=== PATIENT | female | born 1950 | race Caucasian/White ===

== ENCOUNTER 2023-12-25 16:03 | Outpatient (BNV) | payer MEDICARE, MEDICAID, SELFPAY | END 2023-12-27 11:08 | PROVIDERS: Admitting Provider Social Worker; PCP Nurse Practitioner Family; Visit Provider Internal Medicine | DX: R07.9 Chest pain, unspecified (principal) | CPT/HCPCS: 93010 ==

== ENCOUNTER 2023-12-25 16:03 | Inpatient (IN) | payer MEDICARE, MEDICAID, SELFPAY ==
--- NOTE | ~2023-12-25 | XR_ITS ---
EXAMINATION: XR KNEE, RIGHT CLINICAL INFORMATION: Fall COMPARISON: None available. TECHNIQUE: AP and lateral views of the right knee. FINDINGS: Mild medial and patellofemoral compartment osteoarthritis. No fracture. No joint effusion. Osteopenia. XR/XR knee RT 2V IMPRESSION: Mild degenerative changes with no fracture. Electronically signed by: Rudy Godinez MD 12/29/2023 06:55 PM EDT
--- NOTE | ~2023-12-25 | CT_ITS ---
EXAMINATION: CT HEAD WITHOUT CONTRAST CLINICAL INFORMATION: Unwitnessed fall COMPARISON: None available. TECHNIQUE: Contiguous axial imaging was performed from the skull base to vertex without intravenous administration of contrast. This CT examination was performed using dose optimization techniques as appropriate, variously including the following: *Automated exposure control *Adjustment of mA and/or kV according to patient size (this includes techniques or standardized protocols for targeted exams where dose is matched to indication/reason for exam; i.e. extremities or head) *Use of iterative reconstruction technique DLP: 632 mGy-cm RESULTS: There is no evidence of acute intracranial hemorrhage, acute large vessel infarct, midline shift or mass effect. The guy-white differentiation is preserved. There are patchy periventricular and subcortical white matter changes, which are nonspecific, but likely represent chronic microangiopathic change in a patient of this age. The ventricles and sulci are within normal limits in size and configuration. There is no evidence of hydrocephalus. There are no extraaxial collections. Osseous structures are intact. Paranasal sinuses and mastoid air cells are well aerated. CT/CT head/brain wo IV con IMPRESSION: No acute intracranial pathology. Electronically signed by: Nelda Smith MD 12/30/2023 09:02 AM EDT
--- NOTE | ~2023-12-25 | XR_ITS ---
EXAMINATION: XR CHEST CLINICAL INFORMATION: ? pneumonia COMPARISON: None available. TECHNIQUE: AP portable upright view of the chest was obtained. Nonstandard position FINDINGS: There are patchy airspace opacities throughout the right lung predominating peripherally. Similar patchy airspace opacities are noted at the periphery of the left lung base. Differential considerations include multifocal bronchopneumonia, eosinophilic pneumonia, organizing pneumonia, vasculitis or noncardiogenic edema. Clinical correlation is required as to etiology. Prominence of the central pulmonary vasculature and cardiac silhouette. Cannot exclude left effusion. There may be a component of cardiogenic edema. Recommend short-term follow-up. Nonobstructive gas pattern appear XR/XR chest 1V IMPRESSION: Bilateral peripheral predominant airspace opacities with differential considerations as above. There may be a component of cardiogenic edema. Recommend short-term follow-up. Electronically signed by: Shan London MD 01/28/2024 11:35 AM JESÚS
[2023-12-25 17:47] VITALS: BP 118/80; PULSE 58; RESP 18; TEMP 36.5; O2SAT 96
--- NOTE | 2023-12-25 18:04 | PC.ADMIT ---
Jnue Mayer was admitted to unit at 1624 from [facility] via ambulance on a 12B. Per assessment patient presented with suicidal thoughts, hallucinations, paranoia she has a diagnosis of paranoid schizophrenia. Per apartment community assistant manager of rest home reports that June symptoms have worsened over the last couple of weeks. per assessment while in the ED she had defecated and consumed her feces she told the provider that voices told her to eat her own feces. Patient appears anxious and depressed. Her affect is anxious. Patient reported anxiety, she denied endorsing depression. She denied auditory, visual hallucinations. When asked if she had thoughts of wanting to hurt self or others stated No, I just want to go home. Patient is cooperative with care. On assessment skin appeared intact and dry except for redness to bilateral breast folds and extreme dryness and calluses on both feet. Patient was placed on 5 minute checks for safety.
[2023-12-25 20:00] VITALS: BP 112/58; PULSE 64; RESP 18; TEMP 36.4; O2SAT 98
[2023-12-25] MEDS: Fludrocortisone Acetate 0.1 MG TABLET PO (20:33)
[2023-12-25] MEDS: risperiDONE 2 MG TABLET PO (20:33)
--- NOTE | 2023-12-26 08:09 | P.CONHOSP_ITS ---
History of Present Illness Data of Consult Service Date: 12/26/23 Requesting physician: Britney Nuñez Primary Care Provider: Carole Wallace NP HPI Reason for consult: medical consult Patient is a 73-year-old female with a past medical history significant for hyperlipidemia, anxiety, hypotension and paranoid schizophrenia, who was admitted to [facility] recently for SI, hallucinations and paranoia. She has no general medical concerns today. She is taking prednisone and does not know why. Review of Systems 2 Constitutional: Constitutional: Denies body ache(s), Denies fatigue, Denies fever(s), Denies headache(s) and Denies weakness Eyes: Eyes: Denies change in vision ENT: Denies dizziness, Denies headache(s), Denies nasal congestion and Denies nasal discharge Cardiovascular: Cardiovascular: Denies chest pain, Denies rapid heart rate, Denies pedal edema, Denies lightheadedness, Denies palpitations and Denies dyspnea Respiratory: Respiratory: Denies cough and Denies dyspnea Gastrointestinal: Gastrointestinal: Denies constipation, Denies diarrhea, Denies nausea and Denies vomiting Genitourinary: Genitourinary: Denies dysuria and Denies urinary urgency Musculoskeletal: Musculoskeletal: Denies abnormal gait and Denies myalgias Integumentary/Breasts: Skin/Breast: Denies rash Neurologic: Denies abnormal gait, Denies dizziness, Denies headache(s) and Denies weakness Psychiatric: Psychiatric: Denies as per HPI Endocrine: Endocrine: Denies fatigue and Denies palpitations Hematologic/Lymphatic: Hematologic/Lymphatic: Denies easy bleeding [facility] Medical History (Updated 12/26/23 @ 12:36 by Rima Ireland PA-C) HLD (hyperlipidemia) Functional capacity: independent ambulation Social History Housing: Assisted Living Facility Do you presently have visiting nurse or other home services: No Patient Tobacco Use Status: Never used Tobacco Use of substances other than those prescribed or required for medical reasons: No Currently Displaying Signs/Symptoms of Drug Intoxication Withdrawal: No Any prior treatment program specific to substance use: No Have you been hit, kicked, punched, or otherwise hurt by someone within the past year? If so, by whom?: No Do you feel safe in your current relationship?: No Current Relationship Is there a partner from a previous relationship who is making you feel unsafe now?: No Are you made to feel afraid or neglected: No Spiritual Healthcare Practices: None Reported Advance Directives: No Advance Directives Information Provided: No Do you have thoughts of harming others: None Do you have a plan to hurt others: No Plan Recently lost weight without trying: No How much weight loss: Not applicable Eating poorly because of decreased appetite: No Nutrition screen score: 0 Nutrition Risks: No Nutritional Risk Patient : No : No Poor oral hygiene: No Meds Allergies Allergy/AdvReac Type Severity Reaction Status Date / Time No Known Allergies Allergy Verified 12/25/23 17:04 Active Medications: Current Medications Acetaminophen (Acetaminophen 325 Mg Tablet) 650 mg PO Q6H PRN PRN Reason: Headache/Pain Mild Scale (1-3) Al Hydroxide/Mg Hydroxide (Magnesium Hydrox/Alum Hydrox 30 Ml Oral.Susp) 30 ml PO Q6H PRN PRN Reason: Heartburn/Nausea Atorvastatin Calcium (Atorvastatin Calcium 20 Mg Tablet) 20 mg PO DAILY [facility] Fludrocortisone Acetate (Fludrocortisone Acetate 0.1 Mg Tablet) 0.1 mg PO BID [facility] Last Admin: 12/25/23 20:33 Dose: 0.1 mg Hydroxyzine HCl (Hydroxyzine Hcl 25 Mg Tablet) 25 mg PO Q6H PRN PRN Reason: Anxiety Magnesium Hydroxide (Milk Of Magnesia 30 Ml Oral.Susp) 30 ml PO DAILY PRN PRN Reason: Constipation Nicotine Polacrilex (Nicotine Polacrilex 2 Mg Gum) 2 mg BUCCAL Q2H PRN PRN Reason: Nicotine Cravings Olanzapine (Olanzapine Odt 10 Mg Tab.Rapdis) 10 mg TRANSLINGU Q6H PRN PRN Reason: agitation Prednisone (Prednisone 5 Mg Tablet) 5 mg PO DAILY [facility] Prednisone (Prednisone 1 Mg Tablet) 1 mg PO DAILY [facility] Risperidone (Risperidone 2 Mg Tablet) 2 mg PO BID [facility] Last Admin: 12/25/23 20:33 Dose: 2 mg Senna (Sennosides 8.6 Mg Tablet) 17.2 mg PO DAILY [facility] Sertraline HCl (Sertraline Hcl 50 Mg Tablet) 50 mg PO DAILY [facility] Trazodone HCl (Trazodone Hcl 50 Mg Tablet) 50 mg PO BEDTIME MRX1 PRN PRN Reason: Insomnia Vitamin D (Cholecalciferol (Vitamin D3) 25 Mcg Tablet) 25 mcg PO DAILY [facility] Home Medications ?Medication ?Instructions ?Recorded ?Confirmed ?Last Taken ?Type atorvastatin 20 mg tablet 20 mg PO DAILY 12/25/23 12/25/23 Unknown History cholecalciferol (vitamin D3) 25 25 mcg PO DAILY 12/25/23 12/25/23 Unknown History mcg (1,000 unit) capsule (Vitamin D3) fludrocortisone 0.1 mg tablet 0.1 mg PO BID 12/25/23 12/25/23 Unknown History prednisone 1 mg tablet 1 mg PO DAILY 12/25/23 12/25/23 Unknown History prednisone 5 mg tablet 5 mg PO DAILY 12/25/23 12/25/23 Unknown History risperidone 2 mg tablet 2 mg PO BID 12/25/23 12/25/23 Unknown History sennosides 8.6 mg tablet (senna) 17.2 mg PO DAILY 12/25/23 12/25/23 Unknown History sertraline 50 mg tablet 50 mg PO DAILY 12/25/23 12/25/23 Unknown History Physical Exam 2 Vital Signs and Narrative: Vital Signs: Last Vital Signs Temp 97.6 F 12/25/23 20:00 Pulse 64 12/25/23 20:00 Resp 18 12/25/23 20:00 BP 112/58 L 12/25/23 20:00 Pulse Ox 98 12/25/23 20:00 O2 Del Method Room Air 12/25/23 20:00 General: AOx3, no acute distress Resp: CTA bilaterally CVS: S1, S2, RRR GI: +BS, NT, no distention Skin: Warm, dry Neuro: Cranial nerves II-XII grossly intact bilaterally. Motor grossly intact bilaterally Extremities: No edema Psych: Cooperative, appears anxious/paranoid Results Labs 12/26/23 07:51 Assessment and Plan (1) Medical clearance for psychiatric admission: Status: Acute Plan Patient is a 73-year-old female with a past medical history significant for hyperlipidemia, anxiety, hypotension and paranoid schizophrenia, who was admitted to [facility] recently for SI, hallucinations and paranoia. She has no general medical concerns today. Unclear reason why patient is on prednisone, we will continue for now while investigating further. Nursing is working on getting med record from rest home.. Patient medically clear for psych floor. Mood disorder - plan per psych HLD - continue atorvastatin Hypotension - BPs okay - continue fludrocortisone Thank you for allowing me to participate in the pt's care. Signing off for now. Please contact the medical team if any questions or concerns.
[2023-12-26 09:24] LABS: Alanine Aminotransferase 18 U/L (0-31); Albumin Level 4.1 g/dL (3.5-5.0); Alkaline Phosphatase 78 U/L (39-117); Anion Gap 17 (12-20); Aspartate Amino Transferase 24 U/L (5-31); Bilirubin Total 0.4 mg/dL (0.0-1.0); Blood Urea Nitrogen 23 mg/dL (9-16); Calcium 9.9 mg/dL (8.4-10.2); Carbon Dioxide 23 mmol/L (22-29); Chloride 108 mmol/L (96-108); Cholesterol 181 mg/dL (<200); Estimated Glomerular Filt Rate > 60; Glucose Fasting 88 mg/dL (60-99); HDL Cholesterol 48 mg/dL (>40); LDL Cholesterol Calculated 107 mg/dL (<100); Potassium 3.7 mmol/L (3.3-5.1); Sodium 144 mmol/L (135-145); Total Protein 7.2 g/dL (6.5-8.0); Triglycerides 133 mg/dL (<150)
[2023-12-26 09:25] LABS: Estimated Average Glucose 108 mg/dL; Hemoglobin A1C 122.4403 umol/L; Hemoglobin A1c % 5.4 % (<6.0)
[2023-12-26 09:36] VITALS: BP 144/68; PULSE 64; RESP 18; TEMP 36.3; O2SAT 100
[2023-12-26] MEDS: risperiDONE 2 MG TABLET PO ×2 (09:38→21:04)
[2023-12-26] MEDS: Cholecalciferol (Vitamin D3) 25 MCG TABLET PO (09:38)
[2023-12-26] MEDS: predniSONE 5 MG TABLET PO (09:38)
[2023-12-26] MEDS: Fludrocortisone Acetate 0.1 MG TABLET PO ×2 (09:38→21:04)
[2023-12-26] MEDS: Atorvastatin Calcium 20 MG TABLET PO (09:38)
[2023-12-26] MEDS: Sertraline HCL 50 MG TABLET PO (09:38)
[2023-12-26] MEDS: Sennosides 8.6 MG TABLET 17.2 MG PO (09:38)
[2023-12-26] MEDS: predniSONE 1 MG TABLET PO (09:38)
[2023-12-26 09:40] LABS: Thyroid Stimulating Hormone 0.81 uIU/mL (0.32-4.0)
[2023-12-26 09:47] LABS: Folate 5.2 ng/mL (> or = 4.0); Vitamin B12 516 pg/mL (200-900)
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
[2023-12-26 20:00] VITALS: BP 122/70; PULSE 62; RESP 17; TEMP 36.4; O2SAT 98
[2023-12-26] MEDS: traZODone HCL 50 MG TABLET PO (21:04)
--- NOTE | 2023-12-27 | ECG_ITS ---
Test Reason : CP Blood Pressure : / mmHG Vent. Rate : 063 BPM Atrial Rate : 063 BPM P-R Int : 130 ms QRS Dur : 090 ms QT Int : 428 ms P-R-T Axes : 071 049 024 degrees QTc Int : 437 ms Normal sinus rhythm Normal ECG No previous ECGs available Referred By: Britney Nuñez Electronically Signed By:AUGUSTIN LIMA
[2023-12-27] MEDS: Atorvastatin Calcium 20 MG TABLET PO (08:17)
[2023-12-27 08:18] VITALS: BP 192/81; PULSE 70; RESP 20; TEMP 36.1; O2SAT 100
[2023-12-27] MEDS: risperiDONE 2 MG TABLET PO ×2 (08:20→21:01)
[2023-12-27] MEDS: Fludrocortisone Acetate 0.1 MG TABLET PO ×2 (08:20→21:01)
[2023-12-27] MEDS: Sertraline HCL 50 MG TABLET PO (08:20)
[2023-12-27] MEDS: Cholecalciferol (Vitamin D3) 25 MCG TABLET PO (08:20)
[2023-12-27] MEDS: predniSONE 5 MG TABLET PO (08:20)
[2023-12-27] MEDS: predniSONE 1 MG TABLET PO (08:21)
[2023-12-27] MEDS: Sennosides 8.6 MG TABLET 17.2 MG PO (08:22)
[2023-12-27 08:39] VITALS: BP 198/86
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
[2023-12-27 09:43] VITALS: BP 130/65; PULSE 73
[2023-12-27] MEDS: amLODIPine Besylate 5 MG TABLET PO (09:44)
[2023-12-27] MEDS: hydrOXYzine HCL 25 MG TABLET PO (09:44)
[2023-12-27 12:39] VITALS: BP 132/61; PULSE 77
[2023-12-27 20:00] VITALS: BP 102/51; PULSE 89; RESP 15; TEMP 36; O2SAT 97
[2023-12-27] MEDS: clonazePAM 1 MG TABLET PO (21:00)
[2023-12-27] MEDS: Clotrimazole 1 % Cream 15 GM TUBE 1 APPL TOPICAL (21:00)
[2023-12-27] MEDS: Nystatin Powder 15 GM BOTTLE 1 APPL TOPICAL (21:01)
[2023-12-28 07:00] VITALS: BMI 22.7
[2023-12-28 08:00] VITALS: BP 135/65; PULSE 60; RESP 18; TEMP 36.3; O2SAT 99
[2023-12-28] MEDS: predniSONE 5 MG TABLET PO (08:50)
[2023-12-28] MEDS: amLODIPine Besylate 5 MG TABLET PO (08:50)
[2023-12-28] MEDS: Sertraline HCL 50 MG TABLET PO (08:50)
[2023-12-28] MEDS: Sennosides 8.6 MG TABLET 17.2 MG PO (08:50)
[2023-12-28] MEDS: Cholecalciferol (Vitamin D3) 25 MCG TABLET PO (08:50)
[2023-12-28] MEDS: predniSONE 1 MG TABLET PO (08:50)
[2023-12-28] MEDS: risperiDONE 2 MG TABLET PO ×2 (08:50→20:54)
[2023-12-28] MEDS: Fludrocortisone Acetate 0.1 MG TABLET PO ×2 (08:50→20:53)
[2023-12-28] MEDS: Atorvastatin Calcium 20 MG TABLET PO (08:51)
[2023-12-28] MEDS: Clotrimazole 1 % Cream 15 GM TUBE 1 APPL TOPICAL ×2 (09:40→20:53)
[2023-12-28] MEDS: Nystatin Powder 15 GM BOTTLE 1 APPL TOPICAL ×2 (09:44→20:53)
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
[2023-12-28 20:00] VITALS: RESP 16
[2023-12-28] MEDS: clonazePAM 1 MG TABLET PO (20:53)
[2023-12-28] MEDS: traZODone HCL 50 MG TABLET PO (20:54)
[2023-12-29] VITALS (7 sets, daily range): BP systolic 101–144; BP diastolic 50–79; PULSE 59–79; RESP 16–18; TEMP 36.2–36.4; O2SAT 95–97
[2023-12-29] MEDS: amLODIPine Besylate 5 MG TABLET PO (09:03)
[2023-12-29] MEDS: Fludrocortisone Acetate 0.1 MG TABLET PO ×2 (09:03→21:12)
[2023-12-29] MEDS: risperiDONE 2 MG TABLET PO ×2 (09:03→21:12)
[2023-12-29] MEDS: Sennosides 8.6 MG TABLET 17.2 MG PO (09:03)
[2023-12-29] MEDS: predniSONE 1 MG TABLET PO (09:03)
[2023-12-29] MEDS: Cholecalciferol (Vitamin D3) 25 MCG TABLET PO (09:03)
[2023-12-29] MEDS: Atorvastatin Calcium 20 MG TABLET PO (09:04)
[2023-12-29] MEDS: predniSONE 5 MG TABLET PO (09:04)
[2023-12-29] MEDS: Sertraline HCL 50 MG TABLET PO (09:04)
[2023-12-29] MEDS: Clotrimazole 1 % Cream 15 GM TUBE 1 APPL TOPICAL ×2 (09:06→21:12)
[2023-12-29] MEDS: Nystatin Powder 15 GM BOTTLE 1 APPL TOPICAL ×2 (09:07→21:12)
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
[2023-12-29] MEDS: Benztropine Mesylate 0.5 MG TABLET PO ×2 (15:45→21:12)
--- NOTE | 2023-12-29 18:21 | P.EN_ITS ---
Event Note Date of Service: 12/29/23 Event Note: Rapid response called for 73-year-old female admitted to [facility] for unwitnessed fall out of bed. Patient is alert and oriented x4. Reports she was reaching to turn off the light when she fell out of bed and was found by staff on the floor. Nurse was notified and by the time she arrived to the room patient was already back in bed. Patient states she hit her right knee on the floor but denies head strike. No lightheadedness or dizziness. Patient current ly has no medical complaints. Denies right knee pain. Physical exam benign, revealing preserved ROM of knees but and hips bilaterally. Knees and hips bilaterally nontender to palpation. Will check orthostatics. Will get right knee x-ray, and check CT of head and brain. Time Spent With Patient Time: Total time managing care of this patient today ____ minutes.
--- NOTE | 2023-12-29 18:58 | PC.NURSE ---
June was found on the floor at 1805, GAS JOCKEY was called upon approach she was attempting to get off the floor stated Leave me alone, I'm ok. She got up on her own, VS obtained, she denied pain stated I just hit my knee, when asked if she hit her head she stated No. She reported she was trying grab a paper from her night stand I just lost my footing. She was assessed by medicine, CT of the head and knee xray ordered and done, Orthostatic BP obtained. June was alert and oriented X4, ambulates independently, she denied feeling unsteady. Dr. Watkins notified.
[2023-12-29] MEDS: clonazePAM 1 MG TABLET PO (21:12)
[2023-12-30 07:55] VITALS: BP 153/67; PULSE 63; RESP 18; TEMP 36.6; O2SAT 100
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
[2023-12-30] MEDS: amLODIPine Besylate 5 MG TABLET PO (08:42)
[2023-12-30] MEDS: Sennosides 8.6 MG TABLET 17.2 MG PO (08:42)
[2023-12-30] MEDS: Atorvastatin Calcium 20 MG TABLET PO (08:42)
[2023-12-30] MEDS: predniSONE 1 MG TABLET PO (08:42)
[2023-12-30] MEDS: risperiDONE 2 MG TABLET PO ×2 (08:43→21:03)
[2023-12-30] MEDS: predniSONE 5 MG TABLET PO (08:43)
[2023-12-30] MEDS: Fludrocortisone Acetate 0.1 MG TABLET PO ×2 (08:43→21:02)
[2023-12-30] MEDS: Clotrimazole 1 % Cream 15 GM TUBE 1 APPL TOPICAL ×2 (08:43→21:02)
[2023-12-30] MEDS: Benztropine Mesylate 0.5 MG TABLET PO ×2 (08:43→21:01)
[2023-12-30] MEDS: Sertraline HCL 50 MG TABLET PO (08:43)
[2023-12-30] MEDS: Cholecalciferol (Vitamin D3) 25 MCG TABLET PO (08:43)
[2023-12-30] MEDS: Nystatin Powder 15 GM BOTTLE 1 APPL TOPICAL ×2 (08:43→21:02)
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
[2023-12-30 20:00] VITALS: BP 96/51; PULSE 67; RESP 17; TEMP 36.1; O2SAT 96
[2023-12-30] MEDS: clonazePAM 1 MG TABLET PO (21:01)
[2023-12-31 06:55] VITALS: BP 132/83; PULSE 76; RESP 18; TEMP 36.9; O2SAT 99
[2023-12-31] MEDS: Benztropine Mesylate 0.5 MG TABLET PO ×2 (08:39→21:04)
[2023-12-31] MEDS: predniSONE 5 MG TABLET PO (08:39)
[2023-12-31] MEDS: Sertraline HCL 50 MG TABLET PO (08:39)
[2023-12-31] MEDS: Cholecalciferol (Vitamin D3) 25 MCG TABLET PO (08:39)
[2023-12-31] MEDS: risperiDONE 2 MG TABLET PO ×2 (08:39→22:26)
[2023-12-31] MEDS: Sennosides 8.6 MG TABLET 17.2 MG PO (08:39)
[2023-12-31] MEDS: Nystatin Powder 15 GM BOTTLE 1 APPL TOPICAL (08:40)
[2023-12-31] MEDS: predniSONE 1 MG TABLET PO (08:40)
[2023-12-31] MEDS: amLODIPine Besylate 5 MG TABLET PO (08:40)
[2023-12-31] MEDS: Fludrocortisone Acetate 0.1 MG TABLET PO ×2 (08:40→21:05)
[2023-12-31] MEDS: Clotrimazole 1 % Cream 15 GM TUBE 1 APPL TOPICAL (08:40)
[2023-12-31] MEDS: Atorvastatin Calcium 20 MG TABLET PO (08:40)
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
[2023-12-31 20:00] VITALS: BP 129/59; PULSE 60; RESP 16; TEMP 36.6; O2SAT 98
[2023-12-31] MEDS: clonazePAM 1 MG TABLET PO (21:05)
[2024-01-01 08:45] VITALS: BP 103/57; PULSE 61; RESP 18; TEMP 36.3; O2SAT 98
[2024-01-01] MEDS: predniSONE 5 MG TABLET PO (09:41)
[2024-01-01] MEDS: Sennosides 8.6 MG TABLET 17.2 MG PO (09:41)
[2024-01-01] MEDS: Atorvastatin Calcium 20 MG TABLET PO (09:42)
[2024-01-01] MEDS: predniSONE 1 MG TABLET PO (09:42)
[2024-01-01] MEDS: risperiDONE 2 MG TABLET PO ×2 (09:42→20:39)
[2024-01-01] MEDS: Fludrocortisone Acetate 0.1 MG TABLET PO ×2 (09:42→20:39)
[2024-01-01] MEDS: Benztropine Mesylate 0.5 MG TABLET PO ×2 (09:43→20:39)
[2024-01-01] MEDS: Sertraline HCL 50 MG TABLET PO (09:43)
[2024-01-01] MEDS: Cholecalciferol (Vitamin D3) 25 MCG TABLET PO (09:43)
[2024-01-01] MEDS: buPROPion HCl XL 150 MG TAB.ER.24H PO (09:43)
[2024-01-01] MEDS: amLODIPine Besylate 5 MG TABLET PO (09:44)
[2024-01-01] MEDS: Nystatin Powder 15 GM BOTTLE 1 APPL TOPICAL (09:46)
[2024-01-01] MEDS: Clotrimazole 1 % Cream 15 GM TUBE 1 APPL TOPICAL (09:46)
[2024-01-01 12:54] LABS: Neut%MD 66.9 %; Neutrophils Absolute Auto 5.5 x10*3/uL (2.0-8.3); WBCANC 8.2 X10*3/uL
[2024-01-01 20:00] VITALS: BP 118/63; PULSE 65; RESP 16; TEMP 36.5; O2SAT 97
[2024-01-01] MEDS: clonazePAM 1 MG TABLET PO (20:39)
[2024-01-02 10:11] VITALS: BP 119/56; PULSE 56; RESP 18; TEMP 36.5; O2SAT 97
[2024-01-02] MEDS: Sennosides 8.6 MG TABLET 17.2 MG PO (10:12)
[2024-01-02] MEDS: buPROPion HCl XL 150 MG TAB.ER.24H PO (10:13)
[2024-01-02] MEDS: Fludrocortisone Acetate 0.1 MG TABLET PO ×2 (10:13→21:05)
[2024-01-02] MEDS: predniSONE 5 MG TABLET PO (10:13)
[2024-01-02] MEDS: Benztropine Mesylate 0.5 MG TABLET PO ×2 (10:13→21:05)
[2024-01-02] MEDS: Cholecalciferol (Vitamin D3) 25 MCG TABLET PO (10:14)
[2024-01-02] MEDS: Atorvastatin Calcium 20 MG TABLET PO (10:14)
[2024-01-02] MEDS: amLODIPine Besylate 5 MG TABLET PO (10:14)
[2024-01-02] MEDS: Sertraline HCL 50 MG TABLET PO (10:14)
[2024-01-02] MEDS: risperiDONE 2 MG TABLET PO ×2 (10:15→21:05)
[2024-01-02] MEDS: Nystatin Powder 15 GM BOTTLE 1 APPL TOPICAL ×2 (10:15→21:05)
[2024-01-02] MEDS: Clotrimazole 1 % Cream 15 GM TUBE 1 APPL TOPICAL ×2 (10:15→21:06)
[2024-01-02] MEDS: predniSONE 1 MG TABLET PO (10:15)
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
[2024-01-02 20:00] VITALS: BP 91/52; PULSE 54; RESP 16; TEMP 36.1; O2SAT 96
[2024-01-02] MEDS: clonazePAM 1 MG TABLET PO (21:05)
[2024-01-03 08:05] VITALS: BP 116/57; PULSE 61; RESP 18; TEMP 36.9; O2SAT 95
[2024-01-03] MEDS: Atorvastatin Calcium 20 MG TABLET PO (08:27)
[2024-01-03] MEDS: Sennosides 8.6 MG TABLET 17.2 MG PO (08:28)
[2024-01-03] MEDS: predniSONE 1 MG TABLET PO (08:28)
[2024-01-03] MEDS: buPROPion HCl XL 150 MG TAB.ER.24H PO (08:28)
[2024-01-03] MEDS: Cholecalciferol (Vitamin D3) 25 MCG TABLET PO (08:28)
[2024-01-03] MEDS: Benztropine Mesylate 0.5 MG TABLET PO ×2 (08:28→21:04)
[2024-01-03] MEDS: predniSONE 5 MG TABLET PO (08:28)
[2024-01-03] MEDS: Sertraline HCL 50 MG TABLET PO (08:28)
[2024-01-03] MEDS: Fludrocortisone Acetate 0.1 MG TABLET PO ×2 (08:28→21:04)
[2024-01-03] MEDS: amLODIPine Besylate 5 MG TABLET PO (08:28)
[2024-01-03] MEDS: risperiDONE 2 MG TABLET PO ×2 (08:28→21:06)
[2024-01-03 20:00] VITALS: BP 104/47; PULSE 62; RESP 17; TEMP 36.4; O2SAT 95
[2024-01-03] MEDS: Clotrimazole 1 % Cream 15 GM TUBE 1 APPL TOPICAL (21:04)
[2024-01-03] MEDS: clonazePAM 1 MG TABLET PO (21:04)
[2024-01-03] MEDS: Nystatin Powder 15 GM BOTTLE 1 APPL TOPICAL (21:05)
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
[2024-01-04] MEDS: predniSONE 1 MG TABLET PO (08:47)
[2024-01-04] MEDS: Sertraline HCL 50 MG TABLET PO (08:47)
[2024-01-04] MEDS: predniSONE 5 MG TABLET PO (08:47)
[2024-01-04] MEDS: buPROPion HCl XL 150 MG TAB.ER.24H PO (08:47)
[2024-01-04 08:48] VITALS: BP 97/55; PULSE 90; RESP 18; TEMP 36.8; O2SAT 95
[2024-01-04] MEDS: Fludrocortisone Acetate 0.1 MG TABLET PO ×2 (08:49→20:53)
[2024-01-04] MEDS: risperiDONE 2 MG TABLET PO ×2 (08:49→20:54)
[2024-01-04] MEDS: Benztropine Mesylate 0.5 MG TABLET PO ×2 (08:49→20:54)
[2024-01-04] MEDS: Cholecalciferol (Vitamin D3) 25 MCG TABLET PO (08:49)
[2024-01-04] MEDS: Sennosides 8.6 MG TABLET 17.2 MG PO (08:50)
[2024-01-04] MEDS: Atorvastatin Calcium 20 MG TABLET PO (08:50)
[2024-01-04] MEDS: Clotrimazole 1 % Cream 15 GM TUBE 1 APPL TOPICAL (08:52)
[2024-01-04] MEDS: Nystatin Powder 15 GM BOTTLE 1 APPL TOPICAL (08:52)
--- NOTE | 2024-01-04 09:43 | PM.EVENT ---
Event Note Date of Service: 01/04/24 Event Note: consult for bilateral foot fungus. pt has been using clotrimazone cream BID x1 week. PE: severe fungal toenails with fungal plaques superior to the nails. mild skin flaking on bottom on feet. plan: continue clotrimazole cream BID for up to 4 weeks. will need outpt f/u for fungal nails. Thank you for allowing me to participate in the pt's care. Signing off for now. Please contact the medical team if any questions or concerns. Time Spent With Patient Time: Total time managing care of this patient today 10 minutes.
[2024-01-04 13:39] VITALS: BMI 23.9
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
[2024-01-04 20:00] VITALS: BP 148/65; PULSE 76; RESP 16; TEMP 36.8; O2SAT 98
[2024-01-04] MEDS: clonazePAM 1 MG TABLET PO (20:54)
[2024-01-04] MEDS: OLANZapine ODT 10 MG TAB.RAPDIS TRANSLINGU (23:48)
[2024-01-05] MEDS: traZODone HCL 50 MG TABLET PO (01:26)
[2024-01-05 08:00] VITALS: BP 111/53; PULSE 62; RESP 16; TEMP 36.8; O2SAT 96
[2024-01-05] MEDS: Benztropine Mesylate 0.5 MG TABLET PO ×2 (11:26→21:14)
[2024-01-05] MEDS: amLODIPine Besylate 5 MG TABLET PO (11:26)
[2024-01-05] MEDS: predniSONE 1 MG TABLET PO (11:27)
[2024-01-05] MEDS: Sertraline HCL 50 MG TABLET PO (11:27)
[2024-01-05] MEDS: predniSONE 5 MG TABLET PO (11:27)
[2024-01-05] MEDS: Fludrocortisone Acetate 0.1 MG TABLET PO ×2 (11:27→21:14)
[2024-01-05] MEDS: Atorvastatin Calcium 20 MG TABLET PO (11:27)
[2024-01-05] MEDS: Sennosides 8.6 MG TABLET 17.2 MG PO (11:27)
[2024-01-05] MEDS: Cholecalciferol (Vitamin D3) 25 MCG TABLET PO (11:27)
[2024-01-05] MEDS: buPROPion HCl XL 150 MG TAB.ER.24H PO (11:27)
[2024-01-05] MEDS: risperiDONE 2 MG TABLET PO ×2 (11:28→21:14)
[2024-01-05] MEDS: Clotrimazole 1 % Cream 15 GM TUBE 1 APPL TOPICAL ×2 (12:22→21:16)
[2024-01-05] MEDS: Nystatin Powder 15 GM BOTTLE 1 APPL TOPICAL ×2 (12:26→21:16)
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
[2024-01-05 20:00] VITALS: BP 96/55; PULSE 67; RESP 16; TEMP 37.1; O2SAT 95
[2024-01-05] MEDS: clonazePAM 1 MG TABLET PO (21:14)
[2024-01-06 06:52] VITALS: BP 115/55; PULSE 66; RESP 16; O2SAT 95
[2024-01-06 08:00] VITALS: BP 117/55; PULSE 65; RESP 16; TEMP 37.6; O2SAT 98
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
[2024-01-06] MEDS: predniSONE 1 MG TABLET PO (09:03)
[2024-01-06] MEDS: amLODIPine Besylate 5 MG TABLET PO (09:03)
[2024-01-06] MEDS: Atorvastatin Calcium 20 MG TABLET PO (09:03)
[2024-01-06] MEDS: Benztropine Mesylate 0.5 MG TABLET PO ×2 (09:03→21:03)
[2024-01-06] MEDS: Fludrocortisone Acetate 0.1 MG TABLET PO ×2 (09:03→21:03)
[2024-01-06] MEDS: predniSONE 5 MG TABLET PO (09:03)
[2024-01-06] MEDS: buPROPion HCl XL 150 MG TAB.ER.24H PO (09:03)
[2024-01-06] MEDS: risperiDONE 2 MG TABLET PO ×2 (09:03→21:03)
[2024-01-06] MEDS: Sertraline HCL 50 MG TABLET PO (09:03)
[2024-01-06] MEDS: Cholecalciferol (Vitamin D3) 25 MCG TABLET PO (09:03)
[2024-01-06] MEDS: Sennosides 8.6 MG TABLET 17.2 MG PO (09:04)
[2024-01-06] MEDS: Clotrimazole 1 % Cream 15 GM TUBE 1 APPL TOPICAL ×2 (09:37→21:03)
[2024-01-06] MEDS: Nystatin Powder 15 GM BOTTLE 1 APPL TOPICAL ×2 (09:37→21:03)
[2024-01-06 20:00] VITALS: BP 101/50; PULSE 62; RESP 16; TEMP 36.8; O2SAT 97
[2024-01-06] MEDS: clonazePAM 1 MG TABLET PO (21:03)
[2024-01-06 23:35] VITALS: BP 113/54; PULSE 69; TEMP 36.1; O2SAT 98
[2024-01-07 00:44] VITALS: BP 113/54; PULSE 69; TEMP 36.1; O2SAT 98
--- NOTE | 2024-01-07 01:32 | MHC.EVENTN ---
At 2335, pt's room mate alerted a staff member that pt is on the floor. Upon arrival into room, pt was found lying in front of the bathroom. vitals taken were wnl. pt reported I got up to go to the bathroom, felt dizzy getting back to bed and lowered myself down to the floor . No injury sustained. pt denied pain. radiology receptionist provider and hospitality house supervisor notified. Falls protocol implemented.
[2024-01-07 08:36] VITALS: BP 97/48; PULSE 62; RESP 18; TEMP 36.4; O2SAT 96
[2024-01-07] MEDS: Sennosides 8.6 MG TABLET 17.2 MG PO (08:39)
[2024-01-07] MEDS: Fludrocortisone Acetate 0.1 MG TABLET PO ×2 (08:40→21:25)
[2024-01-07] MEDS: Sertraline HCL 50 MG TABLET PO (08:40)
[2024-01-07] MEDS: buPROPion HCl XL 150 MG TAB.ER.24H PO (08:40)
[2024-01-07] MEDS: predniSONE 5 MG TABLET PO (08:40)
[2024-01-07] MEDS: Cholecalciferol (Vitamin D3) 25 MCG TABLET PO (08:40)
[2024-01-07] MEDS: risperiDONE 2 MG TABLET PO ×2 (08:41→21:24)
[2024-01-07] MEDS: Atorvastatin Calcium 20 MG TABLET PO (08:41)
[2024-01-07] MEDS: Benztropine Mesylate 0.5 MG TABLET PO ×2 (08:41→21:25)
[2024-01-07] MEDS: predniSONE 1 MG TABLET PO (08:41)
[2024-01-07 08:42] VITALS: BP 125/52
[2024-01-07] MEDS: amLODIPine Besylate 5 MG TABLET PO (08:42)
[2024-01-07] MEDS: Clotrimazole 1 % Cream 15 GM TUBE 1 APPL TOPICAL (08:44)
[2024-01-07] MEDS: Nystatin Powder 15 GM BOTTLE 1 APPL TOPICAL (08:44)
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
[2024-01-07 20:00] VITALS: BP 130/58; PULSE 66; RESP 16; TEMP 37; O2SAT 98
[2024-01-07] MEDS: clonazePAM 1 MG TABLET PO (21:25)
[2024-01-07] MEDS: traZODone HCL 50 MG TABLET PO (21:25)
[2024-01-08] MEDS: Acetaminophen 325 MG TABLET 650 MG PO (01:12)
[2024-01-08] MEDS: traZODone HCL 50 MG TABLET PO (01:12)
[2024-01-08] MEDS: OLANZapine ODT 10 MG TAB.RAPDIS TRANSLINGU (01:13)
[2024-01-08 08:00] VITALS: BP 124/56; PULSE 60; RESP 16; TEMP 36.1; O2SAT 98
[2024-01-08] MEDS: predniSONE 5 MG TABLET PO (09:01)
[2024-01-08] MEDS: amLODIPine Besylate 5 MG TABLET PO (09:01)
[2024-01-08] MEDS: Sertraline HCL 50 MG TABLET PO (09:01)
[2024-01-08] MEDS: Fludrocortisone Acetate 0.1 MG TABLET PO ×2 (09:01→21:38)
[2024-01-08] MEDS: risperiDONE 2 MG TABLET PO ×2 (09:01→21:38)
[2024-01-08] MEDS: predniSONE 1 MG TABLET PO (09:01)
[2024-01-08] MEDS: Cholecalciferol (Vitamin D3) 25 MCG TABLET PO (09:01)
[2024-01-08] MEDS: Benztropine Mesylate 0.5 MG TABLET PO ×2 (09:01→21:37)
[2024-01-08] MEDS: Atorvastatin Calcium 20 MG TABLET PO (09:01)
[2024-01-08] MEDS: buPROPion HCl XL 150 MG TAB.ER.24H PO (09:02)
[2024-01-08] MEDS: Sennosides 8.6 MG TABLET 17.2 MG PO (09:02)
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
[2024-01-08] MEDS: LORazepam 1 MG TABLET PO ×2 (17:25→21:37)
[2024-01-08 17:33] LABS: MANUAL DIFF FLAG NO
[2024-01-08 17:35] LABS: Basophils Percent Auto 0.4 % (0-2); Eosinophils Absolute Auto 0.1 X10*3/uL (0.0-0.4); Eosinophils Percent Auto 1.4 % (0-4); Hematocrit 31.8 % (37.0-47.0); Hemoglobin 10.5 g/dl (12.0-16.0); Imm Gran Abs Auto 0.02 X10*3/uL (0.00-0.03); Imm Gran Pct Auto 0.3 % (0.0-0.4); Lymphocytes Absolute Auto 1.5 X10*3/uL (1.2-4.9); Lymphocytes Percent Auto 21.2 % (20-40); Mean Corpuscular Hemoglobin 30.7 pg (27.0-33.0); Mean Platelet Volume 9.2 fL (9.4-12.3); Monocytes Absolute Auto 0.4 X10*3/uL (0.1-1.2); Monocytes Percent Auto 5.4 % (2-11); Neutrophils Percent Auto 71.3 % (45-73); Platelet Count 292 X10*3/uL (160-400); Red Blood Count 3.42 X10*6/uL (4.20-5.50); Red Cell Distribution Width 13.4 % (11.0-16.0)
[2024-01-08 17:43] LABS: Ammonia 34 umol/L (13-55)
[2024-01-08 17:51] LABS: Alanine Aminotransferase 20 U/L (0-31); Albumin Level 3.6 g/dL (3.5-5.0); Alkaline Phosphatase 62 U/L (39-117); Anion Gap 14 (12-20); Aspartate Amino Transferase 41 U/L (5-31); Bilirubin Total 0.2 mg/dL (0.0-1.0); Blood Urea Nitrogen 20 mg/dL (9-16); Calcium 9.4 mg/dL (8.4-10.2); Carbon Dioxide 25 mmol/L (22-29); Chloride 107 mmol/L (96-108); Creatinine Clr Calc Pharmacy 58.7; Estimated Glomerular Filt Rate > 60; Glucose Random 130 mg/dL (60-115); Potassium 4.1 mmol/L (3.3-5.1); Sodium 142 mmol/L (135-145); Total Protein 6.4 g/dL (6.5-8.0)
[2024-01-08 20:00] VITALS: BP 115/58; PULSE 71; RESP 16; TEMP 36.4; O2SAT 95
[2024-01-08] MEDS: Nystatin Powder 15 GM BOTTLE 1 APPL TOPICAL (21:38)
[2024-01-08] MEDS: Clotrimazole 1 % Cream 15 GM TUBE 1 APPL TOPICAL (21:38)
[2024-01-08] MEDS: clonazePAM 1 MG TABLET PO (21:38)
[2024-01-09 08:00] VITALS: BP 129/66; PULSE 74; RESP 16; TEMP 36.8; O2SAT 96
[2024-01-09] MEDS: predniSONE 1 MG TABLET PO (09:33)
[2024-01-09] MEDS: Benztropine Mesylate 0.5 MG TABLET PO ×2 (09:33→21:12)
[2024-01-09] MEDS: Fludrocortisone Acetate 0.1 MG TABLET PO ×2 (09:33→21:12)
[2024-01-09] MEDS: Sertraline HCL 50 MG TABLET PO (09:33)
[2024-01-09] MEDS: Atorvastatin Calcium 20 MG TABLET PO (09:33)
[2024-01-09] MEDS: Sennosides 8.6 MG TABLET 17.2 MG PO (09:33)
[2024-01-09] MEDS: amLODIPine Besylate 5 MG TABLET PO (09:33)
[2024-01-09] MEDS: LORazepam 1 MG TABLET PO ×3 (09:33→21:12)
[2024-01-09] MEDS: risperiDONE 2 MG TABLET PO ×2 (09:34→21:12)
[2024-01-09] MEDS: predniSONE 5 MG TABLET PO (09:34)
[2024-01-09] MEDS: Cholecalciferol (Vitamin D3) 25 MCG TABLET PO (09:34)
--- NOTE | 2024-01-09 16:08 | HO.WOUND ---
Addendum entered by Nallely Naqvi RN 01/09/24 16:14: Wound Consult: Initial 73yr old?female admitted to the Geriatric Behavioral Health Unit at [facility] on 12/25/23 - See progress notes and H&P for detailed history.? Wound consult placed for f dry thickened tissue to bilateral toes.? Patient agreeable to assessment. Bilateral socks removed - no pressure injuries noted. The toe nails are thickened and consistent with fungal invasion to the nails however there is no evidence to suggest fungal dermatitis exists on the skin itself. There is no moisture, no yeast odor, no satellite lesion and no pink pigmentation noted. There is thickened scaling epidermal layers noted to the dorsal side of the toes. When removed they reveal intact tissue. I would suggest application of ammonium lactate cream in an attempt to soften the tissue for easy removal when washed. The legt reat toe is noted for a dry resolving blood blister. Cause unclear but appears to be dry and well adhere to tissue. May apply skin prep to the great toe to keep dry and protect from friction while healing continues. Recommendations: 1. Bilateral toes - Routine Cleansing, dry well. Apply Ammonium Lactate cream per provider order, twice daily. 2. Left Great Toe - Apply Skin Prep to the blister site allow to dry. Re-consult wound care Nurse for wound deterioration or wound changes. Original Note: Wound Consult: Initial 73yr old?female admitted to the [facility] Behavioral Health Unit at [facility] on 12/25/23 - See progress notes and H&P for detailed history.? Wound consult placed for f dry thickened tissue to bilateral toes.? Patient agreeable to assessment. Bilateral socks removed - no pressure injuries noted. The toe nails are thickened and consistent with fungal invasion to the nails however there is no evidence to suggest fungal dermatitis exists on the skin itself. There is no moisture, no yeast odor, no satellite lesion and no pink pigmentation noted. There is thickened scaling epidermal layers noted to the dorsal side of the toes. When removed they reveal intact tissue. I would suggest application of ammonium lactate cream in an attempt to soften the tissue for easy removal when washed. Recommendations: 1. Bilateral toes - Routine Cleansing, dry well. Apply Ammonium Lactate cream per provider order, twice daily. Re-consult wound care Nurse for wound deterioration or wound changes.
[2024-01-09 20:00] VITALS: BP 119/56; PULSE 62; RESP 16; TEMP 36.2; O2SAT 97
[2024-01-09] MEDS: Clotrimazole 1 % Cream 15 GM TUBE 1 APPL TOPICAL (21:12)
[2024-01-09] MEDS: clonazePAM 1 MG TABLET PO (21:12)
[2024-01-09] MEDS: Nystatin Powder 15 GM BOTTLE 1 APPL TOPICAL (22:22)
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
[2024-01-10 07:55] VITALS: BP 120/56; PULSE 94; RESP 18; TEMP 36.7; O2SAT 94
[2024-01-10] MEDS: risperiDONE 3 MG TABLET PO ×2 (08:16→20:50)
[2024-01-10] MEDS: predniSONE 1 MG TABLET PO (08:16)
[2024-01-10] MEDS: clonazePAM 0.5 MG TABLET PO ×2 (08:16→20:49)
[2024-01-10] MEDS: Fludrocortisone Acetate 0.1 MG TABLET PO ×2 (08:16→20:50)
[2024-01-10] MEDS: amLODIPine Besylate 5 MG TABLET PO (08:16)
[2024-01-10] MEDS: Atorvastatin Calcium 20 MG TABLET PO (08:16)
[2024-01-10] MEDS: Sennosides 8.6 MG TABLET 17.2 MG PO (08:16)
[2024-01-10] MEDS: LORazepam 1 MG TABLET PO ×3 (08:17→20:50)
[2024-01-10] MEDS: Benztropine Mesylate 0.5 MG TABLET PO ×2 (08:17→20:47)
[2024-01-10] MEDS: Sertraline HCL 50 MG TABLET PO (08:17)
[2024-01-10] MEDS: Cholecalciferol (Vitamin D3) 25 MCG TABLET PO (08:17)
[2024-01-10] MEDS: predniSONE 5 MG TABLET PO (08:17)
[2024-01-10] MEDS: Nystatin Powder 15 GM BOTTLE 1 APPL TOPICAL ×2 (08:48→20:50)
[2024-01-10 15:42] VITALS: BP 113/58; PULSE 59
[2024-01-10 15:51] LABS: Glucose, Whole Blood 100 mg/dL (60-115)
[2024-01-10 16:17] VITALS: BP 110/62; PULSE 66
[2024-01-10 16:18] VITALS: BP 108/51; PULSE 74
--- NOTE | 2024-01-10 18:09 | PC.NURSE ---
June was found on the floor at 1530 ACCOUNT EXECUTIVE TRAINEE was called upon approach she was attempting to get off the bathroom floor , VSS she denied pain when asked if she hit her head she stated No. She stated she was having a hard time using the walker, She was assessed by medicine, Orthostatic BP obtained. June was alert and oriented X4, ambulates independently, she denied feeling unsteady. Dr Darling notified.
[2024-01-10 20:00] VITALS: RESP 17
[2024-01-10] MEDS: Clotrimazole 1 % Cream 15 GM TUBE 1 APPL TOPICAL (20:49)
[2024-01-10] MEDS: clonazePAM 1 MG TABLET PO (20:49)
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
[2024-01-11] MEDS: Clotrimazole 1 % Cream 15 GM TUBE 1 APPL TOPICAL ×2 (08:45→20:57)
[2024-01-11 08:57] VITALS: BP 117/69; PULSE 80; RESP 18; TEMP 36.7; O2SAT 96
[2024-01-11] MEDS: Cholecalciferol (Vitamin D3) 25 MCG TABLET PO (08:59)
[2024-01-11] MEDS: Nystatin Powder 15 GM BOTTLE 1 APPL TOPICAL ×2 (08:59→20:57)
[2024-01-11] MEDS: predniSONE 5 MG TABLET PO (09:00)
[2024-01-11] MEDS: Sertraline HCL 50 MG TABLET PO (09:00)
[2024-01-11] MEDS: Sennosides 8.6 MG TABLET 17.2 MG PO (09:00)
[2024-01-11] MEDS: Fludrocortisone Acetate 0.1 MG TABLET PO ×2 (09:00→20:56)
[2024-01-11] MEDS: clonazePAM 0.5 MG TABLET PO ×2 (09:01→20:57)
[2024-01-11] MEDS: Benztropine Mesylate 0.5 MG TABLET PO ×2 (09:01→20:57)
[2024-01-11] MEDS: LORazepam 1 MG TABLET PO ×3 (09:01→20:57)
[2024-01-11] MEDS: Atorvastatin Calcium 20 MG TABLET PO (09:02)
[2024-01-11] MEDS: risperiDONE 3 MG TABLET PO (09:02)
[2024-01-11] MEDS: predniSONE 1 MG TABLET PO (09:02)
[2024-01-11] MEDS: amLODIPine Besylate 5 MG TABLET PO (09:02)
--- NOTE | 2024-01-11 14:16 | PC.NURSE ---
Patient voided 400 ml clear dark yellow urine at 1410. Clean catch urine specimen collected and sent to the lab. The patient behavioral, said that she could not ambulate. It took max assist of 2 to ambulate her back to bed. Patient legs were bending and she had to be constantly reminded to stand up straight. Patient back in bed with bed alarm on.
[2024-01-11 14:23] LABS: Appearance Urine Cloudy; Color Urine Yellow; Glucose Urine UA Negative (Negative); Leukocyte Esterase Urine Moderate (2+) (Negative); Nitrite Urine Negative (Negative); PH 5.5 (5.0-9.0); UMIC TRIGGER UACC YES; Urine Blood Negative (Negative); Urine Ketones Negative (Negative); Urine Protein Negative (Neg-Trace)
[2024-01-11 14:30] LABS: Bacteria Urine None Seen (None Seen); Hyaline Casts Urine 0-2 /LPF (0-2); UACC Culture Trigger YES; WBC Urine 21-50 /HPF (0-5)
[2024-01-11 14:32] VITALS: BMI 22.2
--- NOTE | 2024-01-11 17:04 | P.EN_ITS ---
Event Note Date of Service: 01/11/24 Event Note: Patient is a 73-year-old female admitted to [facility] with hospitalist consult for UTI abx recommendations. Patient's UA consistent with acute UTI. Will empirically treat with cefuroxime 500 mg b.i.d. x10 days. Follow UA culture results and adjust abx accordingly. Time Spent With Patient Time: Total time managing care of this patient today ____ minutes.
[2024-01-11 20:00] VITALS: BP 117/58; PULSE 60; RESP 16; TEMP 36.9; O2SAT 96
[2024-01-11] MEDS: clonazePAM 1 MG TABLET PO (20:56)
[2024-01-11] MEDS: risperiDONE 2 MG TABLET PO (20:56)
[2024-01-11] MEDS: cefuroxime axetiL 500 MG TABLET PO (20:57)
[2024-01-11] MEDS: cloZAPine 25 MG TABLET PO (20:57)
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
[2024-01-12] MEDS: cefuroxime axetiL 500 MG TABLET PO ×2 (06:04→20:25)
[2024-01-12] MEDS: predniSONE 1 MG TABLET PO (08:55)
[2024-01-12] MEDS: Sertraline HCL 50 MG TABLET PO (08:55)
[2024-01-12] MEDS: LORazepam 1 MG TABLET PO ×3 (08:55→20:25)
[2024-01-12] MEDS: clonazePAM 0.5 MG TABLET PO ×2 (08:55→20:25)
[2024-01-12] MEDS: Atorvastatin Calcium 20 MG TABLET PO (08:55)
[2024-01-12] MEDS: Sennosides 8.6 MG TABLET 17.2 MG PO (08:56)
[2024-01-12] MEDS: Benztropine Mesylate 0.5 MG TABLET PO ×2 (08:56→20:25)
[2024-01-12] MEDS: Fludrocortisone Acetate 0.1 MG TABLET PO ×2 (08:56→20:36)
[2024-01-12] MEDS: predniSONE 5 MG TABLET PO (08:56)
[2024-01-12 08:57] VITALS: BP 132/60
[2024-01-12] MEDS: Cholecalciferol (Vitamin D3) 25 MCG TABLET PO (08:57)
[2024-01-12] MEDS: risperiDONE 2 MG TABLET PO ×2 (08:57→20:25)
[2024-01-12] MEDS: amLODIPine Besylate 5 MG TABLET PO (08:57)
[2024-01-12] MEDS: Nystatin Powder 15 GM BOTTLE 1 APPL TOPICAL ×2 (08:58→20:36)
[2024-01-12] MEDS: Clotrimazole 1 % Cream 15 GM TUBE 1 APPL TOPICAL ×2 (08:59→20:36)
[2024-01-12 09:41] VITALS: BP 134/60; PULSE 54; TEMP 36.4; O2SAT 96
[2024-01-12 19:48] VITALS: BP 119/60; PULSE 65; TEMP 36.7; O2SAT 96
[2024-01-12] MEDS: cloZAPine 25 MG TABLET PO (20:25)
[2024-01-13 08:43] VITALS: BP 110/60; PULSE 72; TEMP 36.1; O2SAT 95
[2024-01-13] MEDS: Sennosides 8.6 MG TABLET 17.2 MG PO (09:29)
[2024-01-13] MEDS: clonazePAM 0.5 MG TABLET PO ×2 (09:30→20:31)
[2024-01-13] MEDS: Sertraline HCL 50 MG TABLET PO (09:30)
[2024-01-13] MEDS: cefuroxime axetiL 500 MG TABLET PO ×2 (09:30→20:30)
[2024-01-13] MEDS: LORazepam 1 MG TABLET PO ×3 (09:30→20:30)
[2024-01-13] MEDS: Fludrocortisone Acetate 0.1 MG TABLET PO ×2 (09:30→20:31)
[2024-01-13] MEDS: Atorvastatin Calcium 20 MG TABLET PO (09:31)
[2024-01-13] MEDS: predniSONE 5 MG TABLET PO (09:31)
[2024-01-13] MEDS: risperiDONE 2 MG TABLET PO ×2 (09:31→20:31)
[2024-01-13] MEDS: Cholecalciferol (Vitamin D3) 25 MCG TABLET PO (09:32)
[2024-01-13] MEDS: predniSONE 1 MG TABLET PO (09:32)
[2024-01-13] MEDS: amLODIPine Besylate 5 MG TABLET PO (09:33)
[2024-01-13] MEDS: Benztropine Mesylate 0.5 MG TABLET PO ×2 (09:33→20:31)
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
[2024-01-13 20:00] VITALS: BP 99/49; PULSE 71; RESP 16; TEMP 36.7; O2SAT 94
[2024-01-13] MEDS: cloZAPine 25 MG TABLET PO (20:31)
[2024-01-13] MEDS: Nystatin Powder 15 GM BOTTLE 1 APPL TOPICAL (20:31)
[2024-01-13] MEDS: Clotrimazole 1 % Cream 15 GM TUBE 1 APPL TOPICAL (20:31)
[2024-01-13 21:14] VITALS: BP 107/58
[2024-01-14 08:00] VITALS: BP 101/70; PULSE 77; RESP 14; TEMP 36.2; O2SAT 98
[2024-01-14] MEDS: predniSONE 5 MG TABLET PO (09:18)
[2024-01-14] MEDS: cefuroxime axetiL 500 MG TABLET PO ×2 (09:18→20:26)
[2024-01-14] MEDS: Sertraline HCL 50 MG TABLET PO (09:18)
[2024-01-14] MEDS: Sennosides 8.6 MG TABLET 17.2 MG PO (09:18)
[2024-01-14] MEDS: clonazePAM 0.5 MG TABLET PO ×2 (09:18→20:26)
[2024-01-14] MEDS: Benztropine Mesylate 0.5 MG TABLET PO ×2 (09:18→20:26)
[2024-01-14] MEDS: Atorvastatin Calcium 20 MG TABLET PO (09:18)
[2024-01-14] MEDS: Cholecalciferol (Vitamin D3) 25 MCG TABLET PO (09:18)
[2024-01-14] MEDS: risperiDONE 2 MG TABLET PO ×2 (09:18→20:25)
[2024-01-14] MEDS: Fludrocortisone Acetate 0.1 MG TABLET PO ×2 (09:18→20:26)
[2024-01-14] MEDS: amLODIPine Besylate 5 MG TABLET PO (09:18)
[2024-01-14] MEDS: LORazepam 1 MG TABLET PO ×2 (09:18→20:26)
[2024-01-14] MEDS: predniSONE 1 MG TABLET PO (09:18)
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
--- NOTE | 2024-01-14 15:46 | PC.NURSE ---
The patient is in bed snoring, Ativan not given.
[2024-01-14 20:00] VITALS: BP 119/56; PULSE 63; TEMP 36.6; O2SAT 97
[2024-01-14] MEDS: cloZAPine 25 MG TABLET PO (20:26)
[2024-01-14] MEDS: Clotrimazole 1 % Cream 15 GM TUBE 1 APPL TOPICAL (20:27)
[2024-01-14] MEDS: Nystatin Powder 15 GM BOTTLE 1 APPL TOPICAL (20:27)
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
[2024-01-15 08:02] LABS: Neut%MD 39.8 %; Neutrophils Absolute Auto 3.6 x10*3/uL (2.0-8.3); WBCANC 9.1 X10*3/uL
[2024-01-15 08:48] VITALS: BP 134/61; PULSE 74; RESP 18; TEMP 36.4; O2SAT 99
[2024-01-15] MEDS: Clotrimazole 1 % Cream 15 GM TUBE 1 APPL TOPICAL ×2 (08:49→20:44)
[2024-01-15] MEDS: cefuroxime axetiL 500 MG TABLET PO ×2 (08:50→20:41)
[2024-01-15] MEDS: clonazePAM 0.5 MG TABLET PO (08:50)
[2024-01-15] MEDS: risperiDONE 2 MG TABLET PO ×2 (08:50→20:41)
[2024-01-15] MEDS: Sertraline HCL 50 MG TABLET PO (08:50)
[2024-01-15] MEDS: predniSONE 5 MG TABLET PO (08:50)
[2024-01-15] MEDS: Sennosides 8.6 MG TABLET 17.2 MG PO (08:50)
[2024-01-15] MEDS: Fludrocortisone Acetate 0.1 MG TABLET PO ×2 (08:50→20:42)
[2024-01-15] MEDS: Cholecalciferol (Vitamin D3) 25 MCG TABLET PO (08:51)
[2024-01-15] MEDS: LORazepam 1 MG TABLET PO (08:51)
[2024-01-15] MEDS: Benztropine Mesylate 0.5 MG TABLET PO ×2 (08:52→20:43)
[2024-01-15] MEDS: Atorvastatin Calcium 20 MG TABLET PO (08:52)
[2024-01-15] MEDS: predniSONE 1 MG TABLET PO (08:52)
[2024-01-15] MEDS: amLODIPine Besylate 5 MG TABLET PO (08:52)
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
[2024-01-15] MEDS: LORazepam 0.5 MG TABLET PO ×2 (15:27→20:42)
[2024-01-15 20:00] VITALS: BP 113/55; PULSE 76; RESP 18; TEMP 36.9; O2SAT 95
[2024-01-15] MEDS: cloZAPine 25 MG TABLET 50 MG PO (20:41)
[2024-01-16 07:55] VITALS: BP 123/58; PULSE 55; RESP 16; TEMP 36.4; O2SAT 96
[2024-01-16 07:58] VITALS: BP 123/58; PULSE 55; RESP 16; TEMP 36.4; O2SAT 96
[2024-01-16] MEDS: Clotrimazole 1 % Cream 15 GM TUBE 1 APPL TOPICAL ×2 (08:00→20:23)
[2024-01-16] MEDS: LORazepam 0.5 MG TABLET PO ×3 (08:00→20:19)
[2024-01-16] MEDS: Nystatin Powder 15 GM BOTTLE 1 APPL TOPICAL (08:00)
[2024-01-16] MEDS: Benztropine Mesylate 0.5 MG TABLET PO ×2 (08:01→20:18)
[2024-01-16] MEDS: Cholecalciferol (Vitamin D3) 25 MCG TABLET PO (08:01)
[2024-01-16] MEDS: Sennosides 8.6 MG TABLET 17.2 MG PO (08:02)
[2024-01-16] MEDS: Fludrocortisone Acetate 0.1 MG TABLET PO ×2 (08:02→20:18)
[2024-01-16] MEDS: risperiDONE 2 MG TABLET PO ×2 (08:02→20:18)
[2024-01-16] MEDS: cefuroxime axetiL 500 MG TABLET PO ×2 (08:03→20:19)
[2024-01-16] MEDS: predniSONE 5 MG TABLET PO (08:03)
[2024-01-16] MEDS: amLODIPine Besylate 5 MG TABLET PO (08:04)
[2024-01-16] MEDS: Atorvastatin Calcium 20 MG TABLET PO (08:04)
[2024-01-16] MEDS: predniSONE 1 MG TABLET PO (08:04)
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
[2024-01-16 20:00] VITALS: BP 109/58; PULSE 71; RESP 18; TEMP 36.5; O2SAT 99
[2024-01-16] MEDS: cloZAPine 25 MG TABLET 50 MG PO (20:17)
[2024-01-17 07:55] VITALS: BP 128/60; PULSE 64; RESP 18; TEMP 36.7; O2SAT 97
[2024-01-17] MEDS: Atorvastatin Calcium 20 MG TABLET PO (08:25)
[2024-01-17] MEDS: amLODIPine Besylate 5 MG TABLET PO (08:25)
[2024-01-17] MEDS: predniSONE 1 MG TABLET PO (08:25)
[2024-01-17] MEDS: Cholecalciferol (Vitamin D3) 25 MCG TABLET PO (08:26)
[2024-01-17] MEDS: LORazepam 0.5 MG TABLET PO ×3 (08:26→21:15)
[2024-01-17] MEDS: Sennosides 8.6 MG TABLET 17.2 MG PO (08:26)
[2024-01-17] MEDS: Fludrocortisone Acetate 0.1 MG TABLET PO ×2 (08:26→21:15)
[2024-01-17] MEDS: risperiDONE 2 MG TABLET PO ×2 (08:26→21:15)
[2024-01-17] MEDS: Benztropine Mesylate 0.5 MG TABLET PO ×2 (08:26→21:14)
[2024-01-17] MEDS: predniSONE 5 MG TABLET PO (08:26)
[2024-01-17] MEDS: cefuroxime axetiL 500 MG TABLET PO (08:26)
[2024-01-17] MEDS: Nystatin Powder 15 GM BOTTLE 1 APPL TOPICAL (08:27)
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
[2024-01-17 20:00] VITALS: BP 138/63; PULSE 73; RESP 15; TEMP 36.8; O2SAT 98
[2024-01-17] MEDS: Clotrimazole 1 % Cream 15 GM TUBE 1 APPL TOPICAL (21:14)
[2024-01-17] MEDS: cloZAPine 25 MG TABLET 75 MG PO (21:14)
[2024-01-17] MEDS: traZODone HCL 50 MG TABLET PO (21:15)
[2024-01-18 08:05] VITALS: BP 104/66; PULSE 83; RESP 18; TEMP 36.7; O2SAT 96
[2024-01-18] MEDS: Sennosides 8.6 MG TABLET 17.2 MG PO (08:26)
[2024-01-18] MEDS: Benztropine Mesylate 0.5 MG TABLET PO (08:26)
[2024-01-18] MEDS: amLODIPine Besylate 5 MG TABLET PO (08:26)
[2024-01-18] MEDS: risperiDONE 2 MG TABLET PO ×2 (08:26→20:51)
[2024-01-18] MEDS: predniSONE 5 MG TABLET PO (08:26)
[2024-01-18] MEDS: Atorvastatin Calcium 20 MG TABLET PO (08:26)
[2024-01-18] MEDS: Fludrocortisone Acetate 0.1 MG TABLET PO ×2 (08:26→20:51)
[2024-01-18] MEDS: predniSONE 1 MG TABLET PO (08:26)
[2024-01-18] MEDS: LORazepam 0.5 MG TABLET PO ×2 (08:26→20:51)
[2024-01-18] MEDS: Cholecalciferol (Vitamin D3) 25 MCG TABLET PO (08:26)
[2024-01-18] MEDS: Clotrimazole 1 % Cream 15 GM TUBE 1 APPL TOPICAL (08:27)
[2024-01-18 13:09] VITALS: BMI 24.0
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
[2024-01-18 20:00] VITALS: BP 150/67; PULSE 84; RESP 16; TEMP 37.1; O2SAT 97
[2024-01-18] MEDS: Ammonium Lactate 12 % Lotion 226 GM BOTTLE 1 APPL TOPICAL (20:50)
[2024-01-18] MEDS: cloZAPine 100 MG TABLET PO (20:51)
[2024-01-19 10:22] VITALS: BP 99/53; PULSE 64; RESP 14; TEMP 36.2; O2SAT 97
[2024-01-19] MEDS: risperiDONE 2 MG TABLET PO ×2 (10:26→21:05)
[2024-01-19] MEDS: Sennosides 8.6 MG TABLET 17.2 MG PO (10:26)
[2024-01-19] MEDS: Atorvastatin Calcium 20 MG TABLET PO (10:27)
[2024-01-19] MEDS: Fludrocortisone Acetate 0.1 MG TABLET PO ×2 (10:27→21:05)
[2024-01-19] MEDS: predniSONE 1 MG TABLET PO (10:27)
[2024-01-19] MEDS: amLODIPine Besylate 5 MG TABLET PO (10:27)
[2024-01-19] MEDS: predniSONE 5 MG TABLET PO (10:27)
[2024-01-19] MEDS: LORazepam 0.5 MG TABLET PO ×2 (10:27→21:05)
[2024-01-19] MEDS: Cholecalciferol (Vitamin D3) 25 MCG TABLET PO (10:27)
[2024-01-19] MEDS: Ammonium Lactate 12 % Lotion 226 GM BOTTLE 1 APPL TOPICAL ×2 (10:50→21:05)
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
[2024-01-19 20:00] VITALS: BP 132/61; PULSE 91; RESP 18; TEMP 36.8; O2SAT 96
[2024-01-19] MEDS: cloZAPine 100 MG TABLET PO (21:05)
[2024-01-20 08:00] VITALS: BP 121/63; PULSE 77; RESP 18; TEMP 36.9; O2SAT 97
[2024-01-20] MEDS: Ammonium Lactate 12 % Lotion 226 GM BOTTLE 1 APPL TOPICAL ×2 (08:49→20:19)
[2024-01-20] MEDS: risperiDONE 2 MG TABLET PO ×2 (08:50→20:20)
[2024-01-20] MEDS: Cholecalciferol (Vitamin D3) 25 MCG TABLET PO (08:50)
[2024-01-20] MEDS: Atorvastatin Calcium 20 MG TABLET PO (08:50)
[2024-01-20] MEDS: predniSONE 1 MG TABLET PO (08:50)
[2024-01-20] MEDS: LORazepam 0.5 MG TABLET PO ×2 (08:50→20:20)
[2024-01-20] MEDS: amLODIPine Besylate 5 MG TABLET PO (08:50)
[2024-01-20] MEDS: Sennosides 8.6 MG TABLET 17.2 MG PO (08:50)
[2024-01-20] MEDS: predniSONE 5 MG TABLET PO (08:50)
[2024-01-20] MEDS: Fludrocortisone Acetate 0.1 MG TABLET PO ×2 (08:50→20:20)
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
[2024-01-20 20:00] VITALS: BP 147/68; PULSE 92; RESP 18; TEMP 37.2; O2SAT 98
[2024-01-20] MEDS: cloZAPine 100 MG TABLET PO (20:19)
[2024-01-21 08:59] VITALS: BP 145/69; PULSE 87; RESP 20; TEMP 36.8; O2SAT 98
[2024-01-21] MEDS: predniSONE 1 MG TABLET PO (09:05)
[2024-01-21] MEDS: predniSONE 5 MG TABLET PO (09:06)
[2024-01-21] MEDS: LORazepam 0.5 MG TABLET PO ×2 (09:06→20:27)
[2024-01-21] MEDS: Cholecalciferol (Vitamin D3) 25 MCG TABLET PO (09:06)
[2024-01-21] MEDS: Atorvastatin Calcium 20 MG TABLET PO (09:06)
[2024-01-21] MEDS: Fludrocortisone Acetate 0.1 MG TABLET PO ×2 (09:06→20:26)
[2024-01-21] MEDS: amLODIPine Besylate 5 MG TABLET PO (09:07)
[2024-01-21] MEDS: risperiDONE 2 MG TABLET PO ×2 (09:07→20:26)
[2024-01-21] MEDS: Ammonium Lactate 12 % Lotion 226 GM BOTTLE 1 APPL TOPICAL ×2 (09:07→20:27)
[2024-01-21] MEDS: Sennosides 8.6 MG TABLET 17.2 MG PO (09:13)
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
[2024-01-21 20:00] VITALS: BP 137/68; PULSE 101; RESP 16; TEMP 36.3; O2SAT 96
[2024-01-21] MEDS: cloZAPine 100 MG TABLET PO (20:26)
[2024-01-22 07:55] VITALS: BP 130/73; PULSE 86; RESP 18; TEMP 36.2; O2SAT 96
[2024-01-22] MEDS: risperiDONE 2 MG TABLET PO ×2 (08:20→20:59)
[2024-01-22] MEDS: Atorvastatin Calcium 20 MG TABLET PO (08:20)
[2024-01-22] MEDS: predniSONE 1 MG TABLET PO (08:20)
[2024-01-22] MEDS: Cholecalciferol (Vitamin D3) 25 MCG TABLET PO (08:20)
[2024-01-22] MEDS: Sennosides 8.6 MG TABLET 17.2 MG PO (08:20)
[2024-01-22] MEDS: predniSONE 5 MG TABLET PO (08:20)
[2024-01-22] MEDS: LORazepam 0.5 MG TABLET PO ×2 (08:20→20:59)
[2024-01-22] MEDS: Fludrocortisone Acetate 0.1 MG TABLET PO ×2 (08:20→20:59)
[2024-01-22] MEDS: amLODIPine Besylate 5 MG TABLET PO (08:20)
[2024-01-22] MEDS: Ammonium Lactate 12 % Lotion 226 GM BOTTLE 1 APPL TOPICAL ×2 (08:20→21:00)
[2024-01-22 08:43] LABS: Neut%MD 47.6 %; Neutrophils Absolute Auto 3.9 x10*3/uL (2.0-8.3); WBCANC 8.1 X10*3/uL
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
[2024-01-22 20:00] VITALS: BP 134/68; PULSE 89; RESP 18; TEMP 36.6; O2SAT 97
[2024-01-22] MEDS: cloZAPine 25 MG TABLET 125 MG PO (21:00)
[2024-01-23 08:19] VITALS: BP 131/74; PULSE 82; RESP 18; TEMP 35.9; O2SAT 97
[2024-01-23] MEDS: LORazepam 0.5 MG TABLET PO ×2 (08:23→21:54)
[2024-01-23] MEDS: Ammonium Lactate 12 % Lotion 226 GM BOTTLE 1 APPL TOPICAL ×2 (08:23→21:54)
[2024-01-23] MEDS: Cholecalciferol (Vitamin D3) 25 MCG TABLET PO (08:23)
[2024-01-23] MEDS: Sennosides 8.6 MG TABLET 17.2 MG PO (08:23)
[2024-01-23] MEDS: risperiDONE 2 MG TABLET PO ×2 (08:24→21:54)
[2024-01-23] MEDS: Fludrocortisone Acetate 0.1 MG TABLET PO ×2 (08:24→21:54)
[2024-01-23] MEDS: predniSONE 5 MG TABLET PO (08:24)
[2024-01-23] MEDS: Atorvastatin Calcium 20 MG TABLET PO (08:25)
[2024-01-23] MEDS: predniSONE 1 MG TABLET PO (08:25)
[2024-01-23] MEDS: amLODIPine Besylate 5 MG TABLET PO (08:25)
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
[2024-01-23 20:00] VITALS: BP 132/60; PULSE 87; RESP 18; TEMP 36.6; O2SAT 96
[2024-01-23] MEDS: traZODone HCL 50 MG TABLET PO (21:54)
[2024-01-23] MEDS: cloZAPine 25 MG TABLET 125 MG PO (21:54)
[2024-01-24 08:00] VITALS: BP 142/81; PULSE 77; RESP 12; TEMP 36; O2SAT 95
[2024-01-24] MEDS: LORazepam 0.5 MG TABLET PO ×2 (08:07→20:23)
[2024-01-24] MEDS: predniSONE 1 MG TABLET PO (08:07)
[2024-01-24] MEDS: Atorvastatin Calcium 20 MG TABLET PO (08:07)
[2024-01-24] MEDS: predniSONE 5 MG TABLET PO (08:07)
[2024-01-24] MEDS: Ammonium Lactate 12 % Lotion 226 GM BOTTLE 1 APPL TOPICAL ×2 (08:07→20:21)
[2024-01-24] MEDS: Cholecalciferol (Vitamin D3) 25 MCG TABLET PO (08:07)
[2024-01-24] MEDS: Sennosides 8.6 MG TABLET 17.2 MG PO (08:07)
[2024-01-24 08:08] VITALS: BP 142/81
[2024-01-24] MEDS: Fludrocortisone Acetate 0.1 MG TABLET PO ×2 (08:08→20:22)
[2024-01-24] MEDS: risperiDONE 2 MG TABLET PO ×2 (08:08→20:22)
[2024-01-24] MEDS: amLODIPine Besylate 5 MG TABLET PO (08:08)
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
[2024-01-24 20:00] VITALS: BP 108/55; PULSE 94; RESP 16; TEMP 35.7; O2SAT 95
[2024-01-24] MEDS: cloZAPine 25 MG TABLET 125 MG PO (20:21)
[2024-01-24] MEDS: traZODone HCL 50 MG TABLET PO (20:22)
[2024-01-25 07:00] VITALS: BMI 23.0
[2024-01-25] MEDS: Cholecalciferol (Vitamin D3) 25 MCG TABLET PO (11:37)
[2024-01-25] MEDS: LORazepam 0.5 MG TABLET PO ×2 (11:37→20:45)
[2024-01-25] MEDS: Sennosides 8.6 MG TABLET 17.2 MG PO (11:37)
[2024-01-25] MEDS: Fludrocortisone Acetate 0.1 MG TABLET PO ×2 (11:37→20:46)
[2024-01-25] MEDS: risperiDONE 2 MG TABLET PO ×2 (11:37→20:46)
[2024-01-25] MEDS: Atorvastatin Calcium 20 MG TABLET PO (11:37)
[2024-01-25] MEDS: predniSONE 5 MG TABLET PO (11:37)
[2024-01-25 11:38] VITALS: BP 112/62; PULSE 76; RESP 18; TEMP 36.2; O2SAT 96
[2024-01-25] MEDS: predniSONE 1 MG TABLET PO (11:38)
[2024-01-25] MEDS: Ammonium Lactate 12 % Lotion 226 GM BOTTLE 1 APPL TOPICAL ×2 (11:38→20:46)
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
[2024-01-25 20:00] VITALS: BP 128/60; PULSE 93; RESP 6; TEMP 36.7; O2SAT 94
[2024-01-25] MEDS: cloZAPine 25 MG TABLET 125 MG PO (20:45)
[2024-01-26 09:54] VITALS: BP 128/60; PULSE 93; RESP 16; TEMP 36.7; O2SAT 94
[2024-01-26] MEDS: risperiDONE 2 MG TABLET PO ×2 (09:56→21:21)
[2024-01-26] MEDS: predniSONE 5 MG TABLET PO (09:56)
[2024-01-26] MEDS: Atorvastatin Calcium 20 MG TABLET PO (09:56)
[2024-01-26] MEDS: amLODIPine Besylate 5 MG TABLET PO (09:56)
[2024-01-26] MEDS: predniSONE 1 MG TABLET PO (09:56)
[2024-01-26] MEDS: Sennosides 8.6 MG TABLET 17.2 MG PO (09:56)
[2024-01-26] MEDS: Fludrocortisone Acetate 0.1 MG TABLET PO ×2 (09:56→21:22)
[2024-01-26] MEDS: LORazepam 0.5 MG TABLET PO ×2 (09:56→21:22)
[2024-01-26] MEDS: Cholecalciferol (Vitamin D3) 25 MCG TABLET PO (09:56)
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
[2024-01-26 19:59] VITALS: BP 182/73; PULSE 129; TEMP 39; O2SAT 94
[2024-01-26 21:17] VITALS: BP 138/78; PULSE 118; RESP 18; TEMP 38.4; O2SAT 95
[2024-01-26] MEDS: cloZAPine 25 MG TABLET 125 MG PO (21:21)
[2024-01-26] MEDS: traZODone HCL 50 MG TABLET PO (21:22)
[2024-01-26] MEDS: Ammonium Lactate 12 % Lotion 226 GM BOTTLE 1 APPL TOPICAL (21:24)
[2024-01-26] MEDS: Acetaminophen 325 MG TABLET 650 MG PO (21:45)
[2024-01-27 00:19] VITALS: PULSE 105; RESP 18; TEMP 36.6; O2SAT 95
[2024-01-27 08:00] VITALS: BP 164/87; PULSE 113; RESP 20; TEMP 36.5; O2SAT 95
[2024-01-27] MEDS: amLODIPine Besylate 5 MG TABLET PO (08:43)
[2024-01-27] MEDS: Atorvastatin Calcium 20 MG TABLET PO (08:43)
[2024-01-27] MEDS: Fludrocortisone Acetate 0.1 MG TABLET PO ×2 (08:43→20:31)
[2024-01-27] MEDS: Cholecalciferol (Vitamin D3) 25 MCG TABLET PO (08:43)
[2024-01-27] MEDS: risperiDONE 2 MG TABLET PO ×2 (08:43→20:31)
[2024-01-27] MEDS: Sennosides 8.6 MG TABLET 17.2 MG PO (08:43)
[2024-01-27] MEDS: predniSONE 5 MG TABLET PO (08:43)
[2024-01-27] MEDS: LORazepam 0.5 MG TABLET PO (08:43)
[2024-01-27] MEDS: predniSONE 1 MG TABLET PO (09:11)
[2024-01-27 12:23] LABS: MANUAL DIFF FLAG NO
[2024-01-27 12:31] LABS: Basophils Percent Auto 0.2 % (0-2); Eosinophils Percent Auto 0.2 % (0-4); Hematocrit 33.3 % (37.0-47.0); Hemoglobin 10.8 g/dl (12.0-16.0); Imm Gran Abs Auto 0.04 X10*3/uL (0.00-0.03); Imm Gran Pct Auto 0.3 % (0.0-0.4); Lymphocytes Percent Auto 7.8 % (20-40); Mean Corpuscular HGB Conc 32.4 g/dl (31.0-35.0); Mean Corpuscular Hemoglobin 29.7 pg (27.0-33.0); Mean Corpuscular Volume 91.5 fL (80.0-98.0); Monocytes Absolute Auto 0.6 X10*3/uL (0.1-1.2); Monocytes Percent Auto 4.8 % (2-11); Neutrophils Absolute Auto 10.7 x10*3/uL (2.0-8.3); Neutrophils Percent Auto 86.7 % (45-73); Platelet Count 282 X10*3/uL (160-400); Red Blood Count 3.64 X10*6/uL (4.20-5.50); Red Cell Distribution Width 13.5 % (11.0-16.0); White Blood Count 12.3 X10*3/uL (4.8-10.8)
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
[2024-01-27 16:32] LABS: Influenza A PCR NEGATIVE (Negative); Influenza B PCR NEGATIVE (Negative); Resp Syncy Virus RNA Qual PCR NEGATIVE (Negative); SARS COV2 PCR INHOUSE NEGATIVE (Negative)
[2024-01-27 20:00] VITALS: BP 116/59; PULSE 95; TEMP 36.9; O2SAT 97
[2024-01-27] MEDS: Ammonium Lactate 12 % Lotion 226 GM BOTTLE 1 APPL TOPICAL (20:30)
[2024-01-27] MEDS: cloZAPine 25 MG TABLET 125 MG PO (20:30)
[2024-01-27] MEDS: traZODone HCL 50 MG TABLET PO (20:31)
[2024-01-28 09:09] VITALS: BP 119/74; PULSE 122; RESP 28; TEMP 37.3; O2SAT 90
[2024-01-28] MEDS: Sennosides 8.6 MG TABLET 17.2 MG PO (09:12)
[2024-01-28] MEDS: predniSONE 5 MG TABLET PO (09:12)
[2024-01-28] MEDS: Fludrocortisone Acetate 0.1 MG TABLET PO (09:12)
[2024-01-28] MEDS: predniSONE 1 MG TABLET PO (09:12)
[2024-01-28] MEDS: Acetaminophen 325 MG TABLET 650 MG PO (09:12)
[2024-01-28] MEDS: Atorvastatin Calcium 20 MG TABLET PO (09:12)
[2024-01-28] MEDS: amLODIPine Besylate 5 MG TABLET PO (09:12)
[2024-01-28] MEDS: risperiDONE 2 MG TABLET PO (09:12)
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
[2024-01-28 10:50] VITALS: TEMP 38
[2024-01-28] MEDS: Ammonium Lactate 12 % Lotion 226 GM BOTTLE 1 APPL TOPICAL (13:39)
[2024-01-28 13:48] LABS: MANUAL DIFF FLAG NO
[2024-01-28 13:52] LABS: Basophils Percent Auto 0.2 % (0-2); Hemoglobin 11.1 g/dl (12.0-16.0); Imm Gran Pct Auto 0.6 % (0.0-0.4); Lymphocytes Absolute Auto 0.8 X10*3/uL (1.2-4.9); Lymphocytes Percent Auto 4.6 % (20-40); Mean Corpuscular HGB Conc 33.6 g/dl (31.0-35.0); Mean Corpuscular Hemoglobin 30.4 pg (27.0-33.0); Mean Corpuscular Volume 90.4 fL (80.0-98.0); Mean Platelet Volume 9.1 fL (9.4-12.3); Monocytes Absolute Auto 0.9 X10*3/uL (0.1-1.2); Monocytes Percent Auto 5.4 % (2-11); Neutrophils Absolute Auto 14.8 x10*3/uL (2.0-8.3); Neutrophils Percent Auto 89.2 % (45-73); Platelet Count 268 X10*3/uL (160-400); Red Blood Count 3.65 X10*6/uL (4.20-5.50); Red Cell Distribution Width 13.7 % (11.0-16.0); White Blood Count 16.6 X10*3/uL (4.8-10.8)
[2024-01-28 14:03] LABS: Anion Gap 18 (12-20); Blood Urea Nitrogen 15 mg/dL (9-16); Carbon Dioxide 18 mmol/L (22-29); Chloride 106 mmol/L (96-108); Creatinine Clr Calc Pharmacy 53.1; Estimated Glomerular Filt Rate > 60; Glucose Random 266 mg/dL (60-115); Potassium 3.6 mmol/L (3.3-5.1); Sodium 138 mmol/L (135-145)
[2024-01-28 14:13] VITALS: BP 101/52; PULSE 98; RESP 22; TEMP 37.3; O2SAT 92
[2024-01-28 14:22] LABS: B Type Natriuretic Peptide 16 pg/mL (<100)
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
[2024-01-28 15:46] LABS: Reflex Lactate? Lactic Acid Added
[2024-01-28 18:44] LABS: Procalcitonin 1.36 ng/mL
[2024-01-29 10:33] LABS: Adenovirus PCR Not Detected (Not Detect.); Bordetella parapertussis PCR Not Detected (Not Detect.); Bordetella pertussis PCR Not Detected (Not Detect.); Chlamydia pneumoniae PCR Not Detected (Not Detect.); Coronavirus 229E PCR Not Detected (Not Detect.); Coronavirus HKU1 PCR Not Detected (Not Detect.); Coronavirus NL63 PCR Not Detected (Not Detect.); Coronavirus OC43 PCR Not Detected (Not Detect.); Human metapneumovirus PCR Not Detected (Not Detect.); Influenza A PCR Not Detected (Not Detect.); Influenza B PCR Not Detected (Not Detect.); Mycoplasma pneumoniae PCR Not Detected (Not Detect.); Parainfluenza 1 PCR Detected (Not Detect.); Parainfluenza 2 PCR Not Detected (Not Detect.); Parainfluenza 3 PCR Not Detected (Not Detect.); Parainfluenza 4 PCR Not Detected (Not Detect.); RSV PCR Not Detected (Not Detect.); Rhino/Enterovirus PCR Not Detected (Not Detect.)
[2024-01-29 11:12] LABS: SARS-CoV-2 PCR Not Detected (Not Detect.)
== END 2024-01-28 15:15 | disposition short-term general hospital (02) | DRG 885 ==
PROVIDERS: Internal Medicine; Psychiatry & Neurology Psychiatry; Student in an Organized Health Care Education/Training Program; Admitting Provider Social Worker; PCP Nurse Practitioner Family; Visit Provider Social Worker
DX: F25.1 Schizoaffective disorder, depressive type (principal); A41.9 Sepsis, unspecified organism; J18.9 Pneumonia, unspecified organism; E27.40 Unspecified adrenocortical insufficiency; E78.5 Hyperlipidemia, unspecified; I95.9 Hypotension, unspecified; B35.1 Tinea unguium; F17.210 Nicotine dependence, cigarettes, uncomplicated; Z71.6 Tobacco abuse counseling; Z20.822 Contact with and (suspected) exposure to COVID-19; Z79.52 Long term (current) use of systemic steroids; Z79.899 Other long term (current) drug therapy
CPT/HCPCS: 0241U; 36415; 70450; 71045; 73560; 80048; 80053; 80061; 81001; 82140; 82607; 82746; 82947; 83036; 83605; 83880; 84145; 84443; 85025; 85048; 87040; 87086; 87633; 93005

== ENCOUNTER → 2023-12-25 16:03 | Outpatient (BNV) | payer MEDICARE, MEDICAID, SELFPAY | PROVIDERS: Admitting Provider Social Worker; PCP Nurse Practitioner Family; Visit Provider Physician Assistant | DX: E78.5 Hyperlipidemia, unspecified (principal); I95.9 Hypotension, unspecified; Z00.8 Encounter for other general examination | CPT/HCPCS: 99221; 99499 ==

== ENCOUNTER → 2023-12-25 16:03 | Outpatient (BNV) | payer MEDICARE, MEDICAID, SELFPAY | PROVIDERS: Admitting Provider Social Worker; PCP Nurse Practitioner Family; Visit Provider Psychiatry & Neurology Psychiatry | DX: F25.1 Schizoaffective disorder, depressive type (principal); E78.5 Hyperlipidemia, unspecified; E27.40 Unspecified adrenocortical insufficiency | CPT/HCPCS: 99231; 99232 ==

== ENCOUNTER → 2023-12-25 16:03 | Outpatient (BNV) | payer MEDICARE, MEDICAID, SELFPAY | PROVIDERS: Admitting Provider Social Worker; PCP Nurse Practitioner Family; Visit Provider Psychiatry & Neurology Psychiatry | DX: F25.1 Schizoaffective disorder, depressive type (principal); E78.5 Hyperlipidemia, unspecified; E27.40 Unspecified adrenocortical insufficiency | CPT/HCPCS: 90792; 99231; 99232 ==

== ENCOUNTER 2024-01-28 14:42 | Outpatient (BNV) | payer MEDICARE, MEDICAID, SELFPAY | END 2024-01-29 01:56 | PROVIDERS: Admitting Provider Student in an Organized Health Care Education/Training Program; Visit Provider Internal Medicine Cardiovascular Disease | DX: R94.31 Abnormal electrocardiogram [ECG] [EKG] (principal) | CPT/HCPCS: 93010 ==

== ENCOUNTER 2024-01-28 14:42 | Inpatient (IN) | payer MEDICARE, MEDICAID, SELFPAY ==
--- NOTE | 2024-01-28 15:27 | P.HPHOSP_ITS ---
History of Present Illness Date of Service: 01/28/24 <DEVON Rosario - Last Filed: 01/28/24 16:01> Attending physician on admission: Yvonne Berumen <DEVON Rosario - Last Filed: 01/28/24 16:01> Chief Complaint: Hypoxia, sepsis <DEVON Rosario - Last Filed: 01/28/24 16:01> Patient is a 73-year-old female with a PMH significant for HLD, HTN, and steroid dependence likely secondary to adrenal insufficiency, anxiety, and paranoid schizophrenia originally admitted to [facility] psych unit. Hospitalist consult placed at 13:23 today for hypoxia and CXR concerning for pneumonia. Patient initially became febrile at 102.2 and tachycardic at 129 on 01/26/2024 at 19:59. Patient tested negative for COVID, flu, and RSV yesterday. CXR was ordered today and showed patchy airspace opacities throughout right lung and periphery of left lung base with differential including multifocal bronchopneumonia, eosinophilic pneumonia, organizing pneumonia, vasculitis, or noncardiogenic edema. This morning at 09:09 patient was noted to be tachycardic up to 122, tachypneic up to 28, and hypoxic at 88-90%. Patient met severe sepsis criteria on the psych floor at 13:42 when lactic acid came back at 6.0. Blood cultures were drawn, and IV antibiotics and IV sepsis bolus fluids were ordered and patient was brought to the medical floor. Clinically patient looks stable and only complains of an occasional nonproductive cough. Denies shortness or breath or difficulty breathing. No chest pain/pressure, palpitations. No nausea, vomiting, abdominal pain. Denies fever or chills. <DEVON Rosario - Last Filed: 01/28/24 16:01> Review of Systems Review of Systems: Negative except for that which is stated in the HPI <DEVON Rosario - Last Filed: 01/28/24 16:01> COUNTS INCLUDE 234 BEDS AT THE [facility] Medical History: Medical History Adrenal insufficiency Schizoaffective disorder, depressive type HLD (hyperlipidemia) <DEVON Rosario - Last Filed: 01/28/24 16:01> Social History: Social History Household Members: Unknown / Unable to assess Housing: Unknown / Unable to assess Do you presently have visiting nurse or other home services: No Patient Tobacco Use Status: Never used Tobacco Use of substances other than those prescribed or required for medical reasons: Unknown Advance Directives: No Advance Directives Information Provided: No Do you have a plan to hurt others: No Plan Recently lost weight without trying: Unsure Nutrition Risks: No Nutritional Risk Patient : No : No Poor oral hygiene: No service: No Sexual orientation: Straight/Heterosexual <DEVON Rosario - Last Filed: 01/28/24 16:01> Meds Allergies/Adverse reactions: Allergies Allergy/AdvReac Type Severity Reaction Status Date / Time No Known Allergies Allergy Verified 12/25/23 17:04 <DEVON Rosario - Last Filed: 01/28/24 16:01> Active Medications: Current Medications Acetaminophen (Acetaminophen 325 Mg Tablet) 650 mg PO Q6H PRN PRN Reason: Pain, Mild (Pain Scale 1-3), fever or headache Calcium Carbonate (Calcium Carbonate 750 Mg Tab.Chew) 750 mg PO Q4H PRN PRN Reason: Heartburn Ceftriaxone Sodium (Ceftriaxone Sodium 1 Gm Vial) 1 gm IVPUSH Q24H DORIE Ceftriaxone Sodium (Ceftriaxone Sodium 2 Gm Vial) 2 gm IVPUSH ONCE STA Stop: 01/28/24 15:26 Enoxaparin Sodium (Enoxaparin Sodium 40 Mg/0.4 Ml Syringe) [address] [facility] Azithromycin 500 mg/ Sodium (Chloride) 250 mls @ 125 mls/hr IV Q24H DORIE Azithromycin 500 mg/ Sodium (Chloride) 250 mls @ 125 mls/hr IV ONCE STA Stop: 01/28/24 17:24 Magnesium Hydroxide (Milk Of Magnesia 30 Ml Oral.Susp) 30 ml PO DAILY PRN PRN Reason: Constipation Melatonin (Melatonin 3 Mg Tablet) 6 mg PO BEDTIME PRN PRN Reason: Insomnia Ondansetron HCl (Ondansetron Hcl 4 Mg/2 Ml Vial) 4 mg IVPUSH Q8H PRN PRN Reason: Nausea and Vomiting Sodium Chloride (0.9 % Sodium Chloride Flush 3 Ml Syringe) [address] [facility] <DEVON Rosario - Last Filed: 01/28/24 16:01> Home medications: Home Medications ?Medication ?Instructions ?Recorded ?Confirmed ?Last Taken ?Type cholecalciferol (vitamin D3) 25 25 mcg PO DAILY 12/25/23 01/28/24 01/27/24 History mcg (1,000 unit) capsule (Vitamin D3) fludrocortisone 0.1 mg tablet 0.1 mg PO BID 12/25/23 01/28/24 01/28/24 09:00 History prednisone 1 mg tablet 1 mg PO DAILY 12/25/23 01/28/24 01/28/24 09:00 History prednisone 5 mg tablet 5 mg PO DAILY 12/25/23 01/28/24 01/28/24 09:00 History risperidone 2 mg tablet 2 mg PO BID 12/25/23 01/28/24 01/28/24 09:00 History sennosides 8.6 mg tablet (senna) 17.2 mg PO DAILY 12/25/23 01/28/24 01/28/24 09:00 History <DEVON Rosario - Last Filed: 01/28/24 16:01> Physical Exam Vital Signs and Narrative: General: AOx3, no acute distress Resp: Diffuse coarse breath sounds bilaterally CVS: S1, S2, regular rhythm, tachycardic GI: +BS, NT, no distention Skin: Warm, dry Neuro: Cranial nerves II-XII grossly intact bilaterally. Motor grossly intact bilaterally Extremities: No edema <DEVON Rosario - Last Filed: 01/28/24 16:01> Assessment and Plan (1) Sepsis due to pneumonia: Status: Acute <DEVON Rosario - Last Filed: 01/28/24 16:01> addm:Patient does not have severe sepsis not hypoxemic at present sats are in 90% on roomair. lactic acid elevated sec to steriods and dehydration, leucocytois sec to ch steriod use ,not sepsis. in nutshell seems viral syndrome/ pneumonia ,added procalcitonin levels,respiratory viral panel. <Yvonne Berumen MD - Last Filed: 01/28/24 18:46> Patient is a 73-year-old female with a PMH significant for HLD, HTN, and steroid dependence likely secondary to adrenal insufficiency, anxiety, and paranoid schizophrenia originally admitted to [facility] psych unit. Hospitalist consult placed at 13:23 today for hypoxia and CXR concerning for pneumonia. Acute hypoxic respiratory failure in the setting of multifocal bronchopneumonia with severe sepsis Patient initially admitted to [facility] floor Febrile and tachycardic since 01/25, originally thought to be viral Tested negative for flu, COVID, RSV yesterday on 01/26 This morning patient became hypoxic at 88%, occasional nonproductive cough, not complaining of shortness a breath or difficulty breathing CXR ordered this morning at 10:55 showing patchy airspace opacities throughout right lung and left lung base with a wide differential including multifocal bronchopneumonia, eosinophilic pneumonia, organizing pneumonia, vasculitis, or noncardiogenic edema Patient met severe sepsis criteria while on the [facility] unit at 13:42 with lactic acid came back at 6.0 Blood cultures were drawn and patient received sepsis bolus IVF, IV antibiotics, Treat with ceftriaxone and azithromycin, started 01/28/2024 Titrate supplemental O2 >92, wean as tolerated ?Adrenal insufficiency Patient on fludrocortisone and prednisone daily Likely secondary to adrenal insufficiency, though has been unable to obtain patient's medical records Will stress dose with hydrocortisone 100 mg IV t.i.d. x24 hours Continue home prednisone, fludrocortisone HLD Continue statin Mood disorder Continue home mood stabilizers Psychiatric consult Full Code Attending:?Dr. Berumen DVT Prophylaxis: Lovenox Pt will require a hospitalization of at least two nights for treatment of?acute hypoxic respiratory failure in the setting of multifocal bronchopneumonia with severe sepsis. Patient requires inpatient hospital level care for administration of IVF, IV antibiotics, supplemental oxygen, and close monitoring of vitals and labs. <DEVON Rosario - Last Filed: 01/28/24 16:01> Quality Stroke Does the patient have a stroke diagnosis?: No <DEVON Rosario - Last Filed: 01/28/24 16:01> VTE Prior VTE?: No <DEVON Rosario Last Filed: 01/28/24 16:01> VTE Risk Level:: Medical - moderate - high <DEVON Rosario Last Filed: 01/28/24 16 :01> VTE Device Contraindication: Treatment Not Indicated <DEVON Rosario Last Filed: 01/28/24 16:01> VTE Drug Contraindication: N/A - Med Ordered <DEVON Rosario Last Filed: 01/28/24 16:01>
--- NOTE | 2024-01-28 15:38 | PHA.MEDREC ---
Pharmacy Consult ? Medication Reconciliation Pharmacy has completed the medication reconciliation. Direct admit, discharged today. Utilized discharge packet.
[2024-01-28 15:43] VITALS: BP 123/59; PULSE 100; RESP 18; TEMP 37; O2SAT 94
[2024-01-28] MEDS: cefTRIAXone sodium 2 GM VIAL IVPUSH (15:44)
[2024-01-28] MEDS: 0.9 % Sodium Chloride 1,000 ML 999 ML IVCONT ×2 (15:48→17:08)
[2024-01-28] MEDS: Hydrocortisone Sod Succ/PF 100 MG VIAL IVPUSH (15:48)
[2024-01-28] MEDS: Azithromycin 500 MG in 0.9 % Sodium Chloride 250 ML 125 MG IV (15:49)
[2024-01-28] MEDS: Enoxaparin Sodium 40 MG/0.4 ML SYRINGE SUBCUT (15:49)
[2024-01-28] MEDS: 0.9 % Sodium Chloride Flush 3 ML SYRINGE IVFLUSH (15:51)
--- NOTE | 2024-01-28 16:01 | PC.NURSE ---
Addendum entered by Avril Dallas RN 01/28/24 17:17: Spoke with Phlebotomy at approximately 1600, per phlebotomy STAT blood cultures were previously drawn when pt was on [facility] and current order is a duplicate, Rodney Briceno aware of duplicate BC orders. STAT Lactic acid Pending. Second Bolus infusing per orders. Addendum entered by Avril Dallas RN 01/28/24 17:02: Clarification: 1L of NS bolus given per Rodney Briceno at time of admission to s3. Original Note: Pt arrived from [facility] A&O to self and place, wifty on situation and time. Pt received IVF bolus and IV abx STAT per LASHELL and MD Berumen. Continuous cardiac monitoring applied per orders, no edema noted, LS clear to auscultation. +BS noted all 4 quads, pt reports BM yesterday. Dry skin noted to bilateral feet, Pt refused any further skin assessment. Limited admission assessment per pt refusal to participate in most questions. Pt states I am not sick, I don't need to be here , pt education on reason for admission and reassured she was safe. Camera in room for safety bed alarm on.
[2024-01-28 16:11] VITALS: BMI 23.6
[2024-01-28 16:48] VITALS: BP 118/58; PULSE 98; RESP 18; O2SAT 94
[2024-01-28 16:57] VITALS: TEMP 36.8
[2024-01-28 17:35] LABS: Lactic Acid 1.9 mmol/L (0.5-2.0)
[2024-01-28 18:00] VITALS: BP 142/67; PULSE 105; RESP 18; TEMP 36.6; O2SAT 94
[2024-01-28 19:17] VITALS: BP 139/64; PULSE 108; RESP 18; TEMP 37.1; O2SAT 96
[2024-01-28 23:59] VITALS: BP 127/61; PULSE 88; RESP 16; TEMP 36.9; O2SAT 95
--- NOTE | 2024-01-29 | ECG_ITS ---
Test Reason : rhythm changes Blood Pressure : / mmHG Vent. Rate : 085 BPM Atrial Rate : 085 BPM P-R Int : 132 ms QRS Dur : 088 ms QT Int : 402 ms P-R-T Axes : 071 067 066 degrees QTc Int : 478 ms Normal sinus rhythm Nonspecific T wave abnormality Prolonged QT Abnormal ECG When compared with ECG of 27-DEC-2023 11:08, No significant change was found Referred By: Tung Garza Electronically Signed By:Juan C De Souza
[2024-01-29] MEDS: 0.9 % Sodium Chloride Flush 3 ML SYRINGE IVFLUSH ×2 (00:11→20:54)
[2024-01-29] MEDS: Hydrocortisone Sod Succ/PF 100 MG VIAL IVPUSH (00:11)
--- NOTE | 2024-01-29 04:38 | PC.NURSE ---
Late entry: Approximately around 01:10, pt quality assurance monitor chassis was in controlled A. flutter per CMT on med/teley unit. Pt had no complaints of chest pain or SOB, asymptomatic. MD Bermudez was notified of the situation. EKG was ordered. No other orders were given, Pt continues to be on cardiac monitoring. Will continue to monitor.
[2024-01-29 05:32] VITALS: BP 134/68; PULSE 89; RESP 16; TEMP 36.5; O2SAT 93
[2024-01-29 07:12] LABS: Hematocrit 32.2 % (37.0-47.0); Hemoglobin 10.7 g/dl (12.0-16.0); Mean Corpuscular HGB Conc 33.2 g/dl (31.0-35.0); Mean Corpuscular Hemoglobin 29.9 pg (27.0-33.0); Mean Corpuscular Volume 89.9 fL (80.0-98.0); Mean Platelet Volume 9.2 fL (9.4-12.3); Platelet Count 286 X10*3/uL (160-400); Red Blood Count 3.58 X10*6/uL (4.20-5.50); Red Cell Distribution Width 13.4 % (11.0-16.0); White Blood Count 13.8 X10*3/uL (4.8-10.8)
[2024-01-29 07:29] LABS: Anion Gap 11 (12-20); Blood Urea Nitrogen 12 mg/dL (9-16); Calcium 8.7 mg/dL (8.4-10.2); Carbon Dioxide 24 mmol/L (22-29); Chloride 109 mmol/L (96-108); Creatinine Clr Calc Pharmacy 65.4; Estimated Glomerular Filt Rate > 60; Glucose Random 166 mg/dL (60-115); Potassium 3.3 mmol/L (3.3-5.1); Sodium 141 mmol/L (135-145)
[2024-01-29 08:56] VITALS: BP 131/78; PULSE 84; RESP 12; TEMP 36.5; O2SAT 95
[2024-01-29] MEDS: predniSONE 1 MG TABLET PO (09:19)
[2024-01-29] MEDS: predniSONE 5 MG TABLET PO (09:19)
[2024-01-29] MEDS: Potassium Chloride ER 20 MEQ TAB.ER.PRT PO (09:19)
[2024-01-29] MEDS: Atorvastatin Calcium 20 MG TABLET PO (09:19)
[2024-01-29] MEDS: risperiDONE 2 MG TABLET PO ×2 (09:19→20:54)
[2024-01-29] MEDS: Fludrocortisone Acetate 0.1 MG TABLET PO ×2 (09:19→20:54)
[2024-01-29] MEDS: Cholecalciferol (Vitamin D3) 25 MCG TABLET PO (09:19)
--- NOTE | 2024-01-29 09:31 | PC.NURSE ---
Primary RN asked this sports writer to place a new IV. Pt stated no to this sports writer and called me and Asshole. Pt encouraged not to be rude to staff. This sports writer left the room and let primary RN know.
--- NOTE | 2024-01-29 10:44 | PC.NURSE ---
IV access lost. Patient refusing to allow staff to place a new IV. Accepted PO medications this morning. Refusing physical assessments. Patient using profanity towards staff. Dr. Adela Berumen aware.
--- NOTE | 2024-01-29 10:53 | P.PNIM_ITS ---
Subjective Subjective Date of Service: 01/29/24 Interval History: possible viral syndrome vs pneumonia Review of Systems no sob no fever seems improving Physical Exam 2 Vital Signs: Vital Signs: Last Vital Signs Temp 97.7 F 01/29/24 08:56 Pulse 84 01/29/24 08:56 Resp 12 01/29/24 08:56 BP 131/78 01/29/24 08:56 Pulse Ox 95 01/29/24 08:56 O2 Del Method Room Air 01/29/24 08:56 BMI result Body Mass Index 23.6 General: AOx3 Resp:air entry diminshed ,has few rhinchii scattered CVS: S1, S2, regular rhythm. GI: +BS, NT, no distention Skin: Warm, dry Neuro: Cranial nerves II-XII grossly intact bilaterally. Motor grossly intact bilaterally Extremities: No edema Objective Data Active Medications Acetaminophen (Acetaminophen 325 Mg Tablet) 650 mg PO Q6H PRN PRN Reason: Pain, Mild (Pain Scale 1-3), fever or headache Atorvastatin Calcium (Atorvastatin Calcium 20 Mg Tablet) 20 mg PO DAILY [facility] Last Admin: 01/29/24 09:19 Dose: 20 mg Documented By: MERA Calcium Carbonate (Calcium Carbonate 750 Mg Tab.Chew) 750 mg PO Q4H PRN PRN Reason: Heartburn Ceftriaxone Sodium (Ceftriaxone Sodium 1 Gm Vial) 1 gm IVPUSH Q24H [facility] Clozapine (Clozapine 100 Mg Tablet) 100 mg PO BEDTIME [facility] Enoxaparin Sodium (Enoxaparin Sodium 40 Mg/0.4 Ml Syringe) 40 mg SUBCUT Q24H [facility] Last Admin: 01/28/24 15:49 Dose: 40 mg Documented By: PATRICIA Fludrocortisone Acetate (Fludrocortisone Acetate 0.1 Mg Tablet) 0.1 mg PO BID [facility] Last Admin: 01/29/24 09:19 Dose: 0.1 mg Documented By: MERA Hydrocortisone Sodium Succinate (Hydrocortisone Sod Succ/Pf 100 Mg Vial) 100 mg IVPUSH BID [facility] Stop: 01/30/24 08:59 Azithromycin 500 mg/ Sodium (Chloride) 250 mls @ 125 mls/hr IV Q24H [facility] Magnesium Hydroxide (Milk Of Magnesia 30 Ml Oral.Susp) 30 ml PO DAILY PRN PRN Reason: Constipation Melatonin (Melatonin 3 Mg Tablet) 6 mg PO BEDTIME PRN PRN Reason: Insomnia Ondansetron HCl (Ondansetron Hcl 4 Mg/2 Ml Vial) 4 mg IVPUSH Q8H PRN PRN Reason: Nausea and Vomiting Prednisone (Prednisone 5 Mg Tablet) 5 mg PO DAILY [facility] Last Admin: 01/29/24 09:19 Dose: 5 mg Documented By: MERA Prednisone (Prednisone 1 Mg Tablet) 1 mg PO DAILY [facility] Last Admin: 01/29/24 09:19 Dose: 1 mg Documented By: MERA Risperidone (Risperidone 2 Mg Tablet) 2 mg PO BID [facility] Last Admin: 01/29/24 09:19 Dose: 2 mg Documented By: MERA Senna (Sennosides 8.6 Mg Tablet) 17.2 mg PO DAILY [facility] Last Admin: 01/29/24 09:26 Dose: Not Given Documented By: MERA Non-Admin Reason: Patient Refused Sodium Chloride (0.9 % Sodium Chloride Flush 3 Ml Syringe) 3 ml IVFLUSH QSHIFT [facility] Last Admin: 01/29/24 09:27 Dose: Not Given Documented By: MERA Non-Admin Reason: Previously Administered Vitamin D (Cholecalciferol (Vitamin D3) 25 Mcg Tablet) 25 mcg PO DAILY [facility] Last Admin: 01/29/24 09:19 Dose: 25 mcg Documented By: MERA Labs 01/29/24 06:35 01/29/24 06:35 Labs: Laboratory Results - last 24 hr 01/28/24 01/29/24 16:51 06:35 MCV 89.9 MCH 29.9 MCHC 33.2 RDW 13.4 Plt Count 286 MPV 9.2 L Absolute Nucleated RBC 0.000 Nucleated RBC % (auto) 0.0 Anion Gap 11 L Estim Creat Clear Calc 65.4 Estimated GFR > 60 Random Glucose 166 H Lactic Acid 1.9 Calcium 8.7 Assessment and Plan (1) Sepsis due to pneumonia: Status: Acute (2) Schizoaffective disorder, depressive type: Status: Acute Assessment and Plan: 73-year-old female with a PMH significant for HLD, HTN, and steroid dependence likely secondary to adrenal insufficiency, anxiety, and paranoid schizophrenia originally admitted to [facility] psych unit. Hospitalist consult placed at 13:23 today for hypoxia and CXR concerning for pneumonia. possible multifocal bronchopneumonia, also has viral sepsis (URI-positive for parainfluenza) . Patient initially admitted to [facility] floor Febrile and tachycardic since 01/25, originally thought to be viral respiratory viral panel -pending, procalcitnin level 1.36. CXR-showing patchy airspace opacities throughout right lung and left lung base with a wide differential including multifocal bronchopneumonia, eosinophilic pneumonia, organizing pneumonia, vasculitis, or noncardiogenic edema. acute lactic acidosis resolved and leucocytosis improving ( not due to sepsis -likley due to dehydration/steriod use). tachycardia due to anxiety not sepsis . plan: low procalcitonin levels ,URI-positive for parainfluenza. readings in computer vitals shows no hypoxia. continue ceftriaxone and azithromycin, started 01/28/2024, blood cultures pending Titrate supplemental O2 >92, wean as tolerated Id eval ?Adrenal insufficiency Patient on fludrocortisone and prednisone daily Likely secondary to adrenal insufficiency, though has been unable to obtain patient's medical records taper hydrocortisone 100 mg IV daily and stop tomorrow. Continue home prednisone, fludrocortisone HLD Continue statin Mood disorder Continue home mood stabilizers Psychiatric consult Full Code DVT Prophylaxis: Lovenox ongoing hospitalization need for treatment of? multifocal bronchopneumonia with viral sepsis -IV antibiotics, blood cultures,and close monitoring of respiratory status vitals and labs Quality Stroke Does the patient have a stroke diagnosis?: No VTE Prior VTE?: No VTE Risk Level:: Medical - moderate - high VTE Device Contraindication: Treatment Not Indicated VTE Drug Contraindication: N/A - Med Ordered
[2024-01-29 12:22] VITALS: BP 120/65; PULSE 83; RESP 12; TEMP 36.5; O2SAT 96
[2024-01-29] MEDS: Enoxaparin Sodium 40 MG/0.4 ML SYRINGE SUBCUT (15:30)
[2024-01-29] MEDS: cefTRIAXone sodium 1 GM VIAL IVPUSH (15:30)
[2024-01-29 15:53] VITALS: BP 132/62; PULSE 96; RESP 18; TEMP 36.5; O2SAT 96
--- NOTE | 2024-01-29 16:17 | P.CNID_ITS ---
History of Present Illness Data of Consult Service Date: 01/29/24 Requesting physician: Yvonne Berumen Primary Care Provider: Unknown Physician HPI Reason for consult: pneumonia She presents with one day of fever to 102.2 and tachycardia and hypoxia. She has patchy densities on CXR and respiratoy sample parainfluenza. She has been started on CTX and Zithromax. She was reported hypoxic earlier but now is not on oxygen. Review of Systems 2 Review of Systems: Yes Unobtainable due to mental status [facility] Past Medical History Medical History Adrenal insufficiency Schizoaffective disorder, depressive type HLD (hyperlipidemia) Family History Family history: reviewed and not pertinent Social History Social History Household Members: Unknown / Unable to assess Housing: Unknown / Unable to assess Do you presently have visiting nurse or other home services: No Patient Tobacco Use Status: Never used Tobacco Use of substances other than those prescribed or required for medical reasons: Unknown Currently Displaying Signs/Symptoms of Drug Intoxication Withdrawal: No Advance Directives: No Advance Directives Information Provided: No Do you have a plan to hurt others: No Plan Recently lost weight without trying: Unsure Nutrition Risks: No Nutritional Risk Patient : No : No Poor oral hygiene: No service: No Sexual orientation: Straight/Heterosexual Meds Allergies Allergy/AdvReac Type Severity Reaction Status Date / Time No Known Allergies Allergy Verified 12/25/23 17:04 Active Medications: Current Medications Acetaminophen (Acetaminophen 325 Mg Tablet) 650 mg PO Q6H PRN PRN Reason: Pain, Mild (Pain Scale 1-3), fever or headache Atorvastatin Calcium (Atorvastatin Calcium 20 Mg Tablet) 20 mg PO DAILY [facility] Last Admin: 01/29/24 09:19 Dose: 20 mg Calcium Carbonate (Calcium Carbonate 750 Mg Tab.Chew) 750 mg PO Q4H PRN PRN Reason: Heartburn Ceftriaxone Sodium (Ceftriaxone Sodium 1 Gm Vial) 1 gm IVPUSH Q24H [facility] Last Admin: 01/29/24 15:30 Dose: 1 gm Clozapine (Clozapine 100 Mg Tablet) 100 mg PO BEDTIME [facility] Enoxaparin Sodium (Enoxaparin Sodium 40 Mg/0.4 Ml Syringe) 40 mg SUBCUT Q24H [facility] Last Admin: 01/29/24 15:30 Dose: 40 mg Fludrocortisone Acetate (Fludrocortisone Acetate 0.1 Mg Tablet) 0.1 mg PO BID [facility] Last Admin: 01/29/24 09:19 Dose: 0.1 mg Hydrocortisone Sodium Succinate (Hydrocortisone Sod Succ/Pf 100 Mg Vial) 100 mg IVPUSH DAILY [facility] Stop: 01/31/24 08:59 Azithromycin 500 mg/ Sodium (Chloride) 250 mls @ 125 mls/hr IV Q24H [facility] Magnesium Hydroxide (Milk Of Magnesia 30 Ml Oral.Susp) 30 ml PO DAILY PRN PRN Reason: Constipation Melatonin (Melatonin 3 Mg Tablet) 6 mg PO BEDTIME PRN PRN Reason: Insomnia Ondansetron HCl (Ondansetron Hcl 4 Mg/2 Ml Vial) 4 mg IVPUSH Q8H PRN PRN Reason: Nausea and Vomiting Prednisone (Prednisone 5 Mg Tablet) 5 mg PO DAILY [facility] Last Admin: 01/29/24 09:19 Dose: 5 mg Prednisone (Prednisone 1 Mg Tablet) 1 mg PO DAILY [facility] Last Admin: 01/29/24 09:19 Dose: 1 mg Risperidone (Risperidone 2 Mg Tablet) 2 mg PO BID [facility] Last Admin: 01/29/24 09:19 Dose: 2 mg Senna (Sennosides 8.6 Mg Tablet) 17.2 mg PO DAILY [facility] Last Admin: 01/29/24 09:26 Dose: Not Given Sodium Chloride (0.9 % Sodium Chloride Flush 3 Ml Syringe) 3 ml IVFLUSH QSHIFT [facility] Last Admin: 01/29/24 09:27 Dose: Not Given Vitamin D (Cholecalciferol (Vitamin D3) 25 Mcg Tablet) 25 mcg PO DAILY [facility] Last Admin: 01/29/24 09:19 Dose: 25 mcg Home Medications ?Medication ?Instructions ?Recorded ?Confirmed ?Last Taken ?Type cholecalciferol (vitamin D3) 25 25 mcg PO DAILY 12/25/23 01/28/24 01/27/24 History mcg (1,000 unit) capsule (Vitamin D3) fludrocortisone 0.1 mg tablet 0.1 mg PO BID 12/25/23 01/28/24 01/28/24 09:00 History prednisone 1 mg tablet 1 mg PO DAILY 12/25/23 01/28/24 01/28/24 09:00 History prednisone 5 mg tablet 5 mg PO DAILY 12/25/23 01/28/24 01/28/24 09:00 History risperidone 2 mg tablet 2 mg PO BID 12/25/23 01/28/24 01/28/24 09:00 History sennosides 8.6 mg tablet (senna) 17.2 mg PO DAILY 12/25/23 01/28/24 01/28/24 09:00 History Physical Exam 2 Vital Signs: Vital Signs: Last Vital Signs Temp 97.7 F 01/29/24 15:53 Pulse 96 01/29/24 15:53 Resp 18 01/29/24 15:53 BP 132/62 01/29/24 15:53 Pulse Ox 96 01/29/24 15:53 O2 Del Method Room Air 01/29/24 15:53 BMI result Body Mass Index 23.6 Const: General: cooperative HEENT: Head: Yes normal to inspection Face and sinus: Yes normal facial exam Mouth: Normal oral and palatal mucosa present Teeth and gingiva: d entition normal Eyes: General: appearance normal, both eyes and all related structures P upils: Equal, round and reactive pupils present Resp: Effort & Inspection: normal respiratory effort Cardio: Rate: regular rate Rhythm: regular rhythm GI: Palpation (GI): Soft to palpation and nontender : General: Yes no CVA tenderness Back/Spine/Pelvis: Back: no CVA tenderness Skin: General skin exam: no rashes or lesions noted Neuro: General: moves all extremities Cranial nerves: Yes Equal, round and reactive pupils present Extrem: General: Yes normal to inspection Psych: Appearance: grossly normal Speech and movement: Other speech and movement exam findings present (Psych) (not verbalizing) Results Labs 01/29/24 06:35 01/29/24 06:35 Labs: Short CBC 01/29/24 Range/Units 06:35 WBC 13.8 H (4.8-10.8) X10*3/uL Hgb 10.7 L (12.0-16.0) g/dl Hct 32.2 L (37.0-47.0) % Plt Count 286 (160-400) X10*3/uL BMP 01/29/24 06:35 Sodium 141 Potassium 3.3 Chloride 109 H Carbon Dioxide 24 BUN 12 Creatinine 0.70 Calcium 8.7 Assessment and Plan (1) Sepsis due to pneumonia: Status: Acute (2) Adrenal insufficiency: Status: Acute (3) Schizoaffective disorder, depressive type: Status: Acute Plan She has probable parainfluenza pneumonia. Antibiotics probably wont help much Within next day or two po Ceftin for 5 days and Zithromax Zpack. Isolation,droplet for five days.
--- NOTE | 2024-01-29 16:18 | MHC.CM.PN ---
Addendum entered by Lora Tobias 01/30/24 14:05: MESSAGES LEFT FOR [facility] [facility], JEFF, TO CONFIRM PT WILL BE UNABLE TO RETURN Original Note: PT WAS TRANSFERRED TO MEDICAL FLOOR FROM INPATIENT PSYCH PER PT, SHE LIVED AT [facility], HOWEVER THEY KICKED HER OUT SHE REPORTS THEY ASSISTED HER WITH PERSONAL CARE GUARDIANSHIP ON FILE HOWEVER HER DAUGHTER HAS DECIDED SHE WANTS TO BE REMOVED FROM THIS POSITION PTS COLLINS ORDER IS ALSO IMM DELIVERED TO PT PT WILL NEED A NEW GUARDIANSHIP AND COLLINS ORDER AND SUBSEQUENT LTC PLACEMENT ONCE MEDICALLY CLEARED, SHE WILL REQUIRE CARE TEAM EVAL TO DETERMINE IF SHE REQUIRES FURTHER PSYCH TREATMENT
[2024-01-29] MEDS: Azithromycin 500 MG in 0.9 % Sodium Chloride 250 ML 125 MG IV (17:18)
[2024-01-29 19:36] VITALS: BP 135/63; PULSE 87; RESP 20; TEMP 37.2; O2SAT 94
[2024-01-29] MEDS: cloZAPine 100 MG TABLET PO (20:54)
[2024-01-29 23:51] VITALS: BP 164/88; PULSE 91; RESP 18; TEMP 37; O2SAT 96
[2024-01-30 07:10] LABS: Neut%MD 67.6 %; Neutrophils Absolute Auto 5.4 x10*3/uL (2.0-8.3); WBCANC 7.9 X10*3/uL
[2024-01-30 07:43] LABS: Anion Gap 13 (12-20); Blood Urea Nitrogen 9 mg/dL (9-16); Calcium 8.7 mg/dL (8.4-10.2); Carbon Dioxide 26 mmol/L (22-29); Chloride 102 mmol/L (96-108); Creatinine Clr Calc Pharmacy 71.5; Estimated Glomerular Filt Rate > 60; Glucose Random 105 mg/dL (60-115); Potassium 2.4 mmol/L (3.3-5.1); Sodium 139 mmol/L (135-145)
[2024-01-30 07:53] VITALS: BP 145/60; PULSE 86; RESP 16; TEMP 37; O2SAT 94
[2024-01-30] MEDS: Hydrocortisone Sod Succ/PF 100 MG VIAL IVPUSH (08:06)
[2024-01-30] MEDS: Potassium Chloride ER 20 MEQ TAB.ER.PRT 40 MEQ PO ×2 (08:06→08:54)
[2024-01-30] MEDS: Fludrocortisone Acetate 0.1 MG TABLET PO ×2 (08:06→21:00)
[2024-01-30] MEDS: predniSONE 1 MG TABLET PO (08:06)
[2024-01-30] MEDS: 0.9 % Sodium Chloride Flush 3 ML SYRINGE IVFLUSH ×2 (08:07→16:40)
[2024-01-30] MEDS: Atorvastatin Calcium 20 MG TABLET PO (08:07)
[2024-01-30] MEDS: Cholecalciferol (Vitamin D3) 25 MCG TABLET PO (08:07)
[2024-01-30] MEDS: risperiDONE 2 MG TABLET PO ×2 (08:07→21:01)
[2024-01-30] MEDS: Magnesium Oxide 400 MG TABLET 800 MG PO ×2 (08:07→21:01)
[2024-01-30] MEDS: predniSONE 5 MG TABLET PO (08:07)
[2024-01-30 08:10] LABS: Magnesium 1.7 mg/dL (1.6-2.6); Phosphorus 3.2 mg/dL (2.7-4.5)
[2024-01-30] MEDS: Potassium Chloride/H20 10 MEQ/100 ML PIGGYBACK 100 MEQ IV (08:54)
[2024-01-30] MEDS: Enoxaparin Sodium 40 MG/0.4 ML SYRINGE SUBCUT (14:32)
--- NOTE | 2024-01-30 14:42 | P.PNIM_ITS ---
Subjective Subjective Date of Service: 01/30/24 Interval History: pneumonia vs viral synndrome Physical Exam 2 Vital Signs: Vital Signs: Last Vital Signs Temp 98.6 F 01/30/24 07:53 Pulse 86 01/30/24 07:53 Resp 16 01/30/24 07:53 BP 145/60 H 01/30/24 07:53 Pulse Ox 94 01/30/24 07:53 O2 Del Method Room Air 01/30/24 07:53 BMI result Body Mass Index 23.6 Objective Data Active Medications Acetaminophen (Acetaminophen 325 Mg Tablet) 650 mg PO Q6H PRN PRN Reason: Pain, Mild (Pain Scale 1-3), fever or headache Atorvastatin Calcium (Atorvastatin Calcium 20 Mg Tablet) 20 mg PO DAILY [facility] Last Admin: 01/30/24 08:07 Dose: 20 mg Documented By: MERA Calcium Carbonate (Calcium Carbonate 750 Mg Tab.Chew) 750 mg PO Q4H PRN PRN Reason: Heartburn Ceftriaxone Sodium (Ceftriaxone Sodium 1 Gm Vial) 1 gm IVPUSH Q24H [facility] Last Admin: 01/29/24 15:30 Dose: 1 gm Documented By: MERA Clozapine (Clozapine 100 Mg Tablet) 100 mg PO BEDTIME [facility] Last Admin: 01/29/24 20:54 Dose: 100 mg Documented By: JOSELIN Enoxaparin Sodium (Enoxaparin Sodium 40 Mg/0.4 Ml Syringe) 40 mg SUBCUT Q24H [facility] Last Admin: 01/30/24 14:32 Dose: 40 mg Documented By: MERA Fludrocortisone Acetate (Fludrocortisone Acetate 0.1 Mg Tablet) 0.1 mg PO BID [facility] Last Admin: 01/30/24 08:06 Dose: 0.1 mg Documented By: MERA Azithromycin 500 mg/ Sodium (Chloride) 250 mls @ 125 mls/hr IV Q24H [facility] Last Infusion: 01/29/24 19:30 Dose: Infused Documented By: JOSELIN Magnesium Hydroxide (Milk Of Magnesia 30 Ml Oral.Susp) 30 ml PO DAILY PRN PRN Reason: Constipation Magnesium Oxide (Magnesium Oxide 400 Mg Tablet) 800 mg PO BID [facility] Last Admin: 01/30/24 08:07 Dose: 800 mg Documented By: MERA Melatonin (Melatonin 3 Mg Tablet) 6 mg PO BEDTIME PRN PRN Reason: Insomnia Ondansetron HCl (Ondansetron Hcl 4 Mg/2 Ml Vial) 4 mg IVPUSH Q8H PRN PRN Reason: Nausea and Vomiting Prednisone (Prednisone 5 Mg Tablet) 5 mg PO DAILY [facility] Last Admin: 01/30/24 08:07 Dose: 5 mg Documented By: MERA Prednisone (Prednisone 1 Mg Tablet) 1 mg PO DAILY [facility] Last Admin: 01/30/24 08:06 Dose: 1 mg Documented By: MERA Risperidone (Risperidone 2 Mg Tablet) 2 mg PO BID [facility] Last Admin: 01/30/24 08:07 Dose: 2 mg Documented By: MERA Senna (Sennosides 8.6 Mg Tablet) 17.2 mg PO DAILY [facility] Last Admin: 01/30/24 08:12 Dose: Not Given Documented By: MERA Non-Admin Reason: Patient Refused Sodium Chloride (0.9 % Sodium Chloride Flush 3 Ml Syringe) 3 ml IVFLUSH QSHIFT [facility] Last Admin: 01/30/24 08:07 Dose: 3 ml Documented By: MERA Vitamin D (Cholecalciferol (Vitamin D3) 25 Mcg Tablet) 25 mcg PO DAILY [facility] Last Admin: 01/30/24 08:07 Dose: 25 mcg Documented By: MERA Labs 01/29/24 06:35 01/30/24 06:49 Labs: Laboratory Results - last 24 hr 01/30/24 06:49 Absolute Neuts (auto) 5.4 Anion Gap 13 Estim Creat Clear Calc 71.5 Estimated GFR > 60 Random Glucose 105 Calcium 8.7 Phosphorus 3.2 Magnesium 1.7 Assessment and Plan (1) Hypokalemia: Status: Acute Plan 73-year-old female with a PMH significant for HLD, HTN, and steroid dependence likely secondary to adrenal insufficiency, anxiety, and paranoid schizophrenia originally admitted to [facility] psych unit. Hospitalist consult placed at 13:23 today for hypoxia and CXR concerning for pneumonia. possible multifocal bronchopneumonia, also has viral sepsis (URI-positive for parainfluenza) . Patient initially admitted to [facility] psych floor Febrile and tachycardic since 01/25, originally thought to be viral respiratory viral panel -pending, procalcitnin level 1.36. CXR-showing patchy airspace opacities throughout right lung and left lung base with a wide differential including multifocal bronchopneumonia, eosinophilic pneumonia, organizing pneumonia, vasculitis, or noncardiogenic edema. acute lactic acidosis resolved and leucocytosis improving ( not due to sepsis -likley due to dehydration/steriod use). tachycardia due to anxiety not sepsis . plan: low procalcitonin levels ,URI-positive for parainfluenza. readings in computer vitals shows no hypoxia. continue ceftriaxone and azithromycin, started 01/28/2024, blood cultures pending Titrate supplemental O2 >92, wean as tolerated Id eval ?Adrenal insufficiency Patient on fludrocortisone and prednisone daily Likely secondary to adrenal insufficiency, though has been unable to obtain patient's medical records taper hydrocortisone 100 mg IV daily and stop tomorrow. Continue home prednisone, fludrocortisone. hypokalemia : added po potassium moniter tele HLD Continue statin Mood disorder Continue home mood stabilizers Psychiatric consult Full Code DVT Prophylaxis: Lovenox ongoing hospitalization need for treatment of? multifocal bronchopneumonia with viral sepsis -IV antibiotics, blood cultures,and close monitoring of respiratory status vitals and labs Quality Stroke Does the patient have a stroke diagnosis?: No VTE Prior VTE?: No VTE Risk Level:: Medical - moderate - high VTE Device Contraindication: Treatment Not Indicated VTE Drug Contraindication: N/A - Med Ordered
[2024-01-30 15:59] VITALS: BP 112/67; PULSE 89; RESP 18; TEMP 36.7; O2SAT 95
[2024-01-30 16:29] LABS: Anion Gap 13 (12-20); Blood Urea Nitrogen 10 mg/dL (9-16); Calcium 9.1 mg/dL (8.4-10.2); Carbon Dioxide 27 mmol/L (22-29); Chloride 101 mmol/L (96-108); Creatinine Clr Calc Pharmacy 59.4; Estimated Glomerular Filt Rate > 60; Glucose Random 193 mg/dL (60-115); Potassium 3.8 mmol/L (3.3-5.1); Sodium 137 mmol/L (135-145)
[2024-01-30] MEDS: cefTRIAXone sodium 1 GM VIAL IVPUSH (16:40)
[2024-01-30] MEDS: Azithromycin 500 MG in 0.9 % Sodium Chloride 250 ML 125 MG IV (17:34)
[2024-01-30 19:32] VITALS: BP 107/58; PULSE 93; RESP 17; TEMP 36.4; O2SAT 95
[2024-01-30] MEDS: cloZAPine 100 MG TABLET PO (21:01)
[2024-01-30 23:32] VITALS: BP 139/71; PULSE 100; RESP 16; TEMP 36.8; O2SAT 96
--- NOTE | 2024-01-31 02:14 | PC.NURSE ---
Patient would not allow nursing assessment or saline flush at midnight. She states she thinks that people are drugging her and it is making her tired and unable to talk, despite her talking clearly. She is suspicious of medications nurses are administering and stated that everyone here is evil. Attempted to assure her that is not happening.
[2024-01-31 03:05] VITALS: BP 157/79; PULSE 84; RESP 16; TEMP 36.9; O2SAT 95
[2024-01-31 07:14] VITALS: BP 145/80; PULSE 79; RESP 16; TEMP 36.8; O2SAT 95
--- NOTE | 2024-01-31 08:55 | MHC.CARE ---
Pt continues to meet the criteria for IPLOC and will be a [facility] IPLOC bed search. A section 12a will be placed in Pt's chart on the medical floor. Provider in agreement.
--- NOTE | 2024-01-31 11:50 | P.DS_ITS ---
DS: Providers Provider Date of Service: 01/31/24 Date of admission: 01/28/24 14:42 Date of discharge: 01/31/24 Primary care physician: Unknown Physician Consults: 01/28/24 16:26 Consult to Psychiatry Routine Consulting Provider: [facility] Psych Covering Reason for consultation: Pt transferred from [facility] 01/29/24 11:19 Consult to Infectious Diseases Routine Consulting Provider: [facility] Infectious Disease Center Reason for consultation: pneumonia Has provider been notified: No 01/31/24 07:28 Consult to Care Team Stat Comment: Reason for consultation: medically clear Has provider been notified: No Attending physician on discharge: Yvonne Berumen Discharging clinician: Yvonne Berumen DS: Diagnosis Discharge Diagnosis (1) Hypokalemia: Status: Acute DS: Summary Hospital Course Hospital Course: HPI: 73-year-old female with a PMH significant for HLD, HTN, and steroid dependence likely secondary to question?? adrenal insufficiency, anxiety, and paranoid schizophrenia originally admitted to [facility] psych unit. Hospitalist consult placed at 13:23 today for hypoxia and CXR concerning for pneumonia. Patient initially became febrile at 102.2 and tachycardic at 129 on 01/26/2024 at 19:59. Patient tested negative for COVID, flu, and RSV yesterday. CXR was ordered today and showed patchy airspace opacities throughout right lung and periphery of left lung base with differential including multifocal bronchopneumonia, eosinophilic pneumonia, organizing pneumonia, vasculitis, or noncardiogenic edema. This morning at 09:09 patient was noted to be tachycardic up to 122, tachypneic up to 28, and hypoxic at 88-90%. Patient met severe sepsis criteria on the psych floor at 13:42 when lactic acid came back at 6.0. Blood cultures were drawn, and IV antibiotics and IV sepsis bolus fluids were ordered and patient was brought to the medical floor. Clinically patient looks stable and only complains of an occasional nonproductive cough. Denies shortness or breath or difficulty breathing. No chest pain/pressure, palpitations. No nausea, vomiting, abdominal pain. Denies fever or chills. Hospital course: Patient was initially transferred to the floor because of possible multifocal pneumonia as well as viral sepsis: Patient leukocytosis,, chest x-ray possible pneumonia(please see detailed report in imaging section), blood cultures sent, acute lactic acidosis was elevated in 6 range.Her leukocytosis and lactic acid was thought to be related to steriods use /dehydration- seems improved with hydration , respiratory viral panel sent, blood cultures sent. Patient was started on IV fluids, given stress dose hydrocortisone considering question of underlying adrenal insufficiency(patient is on steroids both prednisone as well as fludrocortisone in her home med list), IV antibiotics. Initially thought to be hypoxic but does not as even single reading in the vitals showing hypoxia. Fever and tachycardia resolved. respiratory viral panel positive for parainfluenza. Blood culture at 48 hour negative, leukocytosis improving. In addition patient had hypokalemia: Repleted and resolved-seems likely due to decreased p.o. intake. Patient still paranoid at present-need to go to psych for further management. plan: Patient is strongly encouraged for p.o. intake and hydration. Monitor bmp in 1 week or early if p.o. intake stay low. Complete Ceftin 500 mg p.o. b.i.d. and Z-Robbin. Isolation,droplet for five days. repeat chest imaging in 3-4 weeks to resolution of pneumonia. Above management discussed with the psych accepting attending Dr. Garcia in detail length methadone detail length. Assessment and plan coordination time spent 40 minute. Time Attestation Total time managing care of this patient today: 40 mintues. Discharge Coordination Time (in mins): 40 min Quality: Safe Use of Opioids Does Pt have an Active Cancer Diagnosis on the Problem List?: No Quality: Stroke Does the patient have a stroke diagnosis?: No Physical Exam Vital Signs: Vital Signs: Last Vital Signs Temp 98.2 F 01/31/24 07:14 Pulse 79 01/31/24 07:14 Resp 16 01/31/24 07:14 BP 145/80 H 01/31/24 07:14 Pulse Ox 95 01/31/24 07:14 O2 Del Method Room Air 01/31/24 07:14 BMI result Body Mass Index 23.6 General: Awake ,alert but anxious . Resp:air entry fair ,no rales or wheezing CVS: S1, S2, regular rhythm. GI: +BS, NT, no distention Skin: Warm, dry Neuro: Cranial nerves II-XII grossly intact bilaterally. Motor grossly intact bilaterally Extremities: No edema DS: Data Data Completed and Pending Labs on day of discharge: Laboratory Results - last 24 hr 12/03/24 12/03/24 15:43 15:43 Sodium 137 Potassium 3.8 D 3.8 Chloride 101 Carbon Dioxide 27 Anion Gap 13 BUN 10 Creatinine 0.77 Estim Creat Clear Calc 59.4 Estimated GFR > 60 Random Glucose 193 H Calcium 9.1 Discharge Plan Discharge Patient Disposition: Xfer Psychiatric Hosp Discharge Diagnosis: viral sepsis sec to parainfluenza, also mild pneumonia superimposed. Referrals: Physician,Unknown J [Primary Care Provider] - 1 Week Discharge Medications: New cefuroxime axetil 500 mg tablet 500 mg PO BID Qty: 10 0RF azithromycin 250 mg tablet 250 mg PO DAILY 4 Days Qty: 4 0RF Continued sennosides [senna] 8.6 mg tablet 17.2 mg PO DAILY Patient Comments: last filled 12/21/23 prednisone 5 mg tablet 5 mg PO DAILY Patient Comments: last alibcm75/24/24 risperidone 2 mg tablet 2 mg PO BID Patient Comments: last filled 12/21/23 prednisone 1 mg tablet 1 mg PO DAILY Patient Comments: last ekdivk08/24/24 fludrocortisone 0.1 mg tablet 0.1 mg PO BID cholecalciferol (vitamin D3) [Vitamin D3] 25 mcg (1,000 unit) capsule 25 mcg PO DAILY Patient Comments: Last filled 12/21/23 atorvastatin 20 mg Tablet 20 mg PO DAILY Qty: 1 0RF clozapine 100 mg Tablet 100 mg PO BEDTIME Qty: 1 0RF amlodipine 5 mg Tablet 5 mg PO DAILY Qty: 1 0RF Protocol: Hold for SBP< HOLD for SBP < : 90 Discharge Orders: Discharge Order (Routine); Ordered 01/31/24 Ordered By: Yvonne Berumen Diet: Advance to usual diet Activity on Discharge: As tolerated Stand Alone Forms: Patient Portal Discharge page Print Language: Palestinian Plan of Treatment: check bmp in 1 week. Complete Ceftin 500 mg p.o. b.i.d. and Z-Robbin. Isolation,droplet for five days. repeat chest imaging in 3-4 weeks to resolution of pneumonia. Patient Instructions: Viral Pneumonia (DC), Pneumonia (DC)
--- NOTE | 2024-01-31 12:05 | PC.NURSE ---
Pt refused all morning meds and asessment. States staff is drugging me . Tx to [facility] at ~1215. Report given to Kristina
--- NOTE | 2024-01-31 12:09 | MHC.CM.PN ---
Patient medically cleared for dc to I/P psych.
== END 2024-01-31 12:07 | disposition home or self-care (01) | DRG 871 ==
PROVIDERS: Psychiatry & Neurology Psychiatry; Admitting Provider Student in an Organized Health Care Education/Training Program; Visit Provider Internal Medicine
DX: A41.89 Other specified sepsis (principal); J12.2 Parainfluenza virus pneumonia; E27.40 Unspecified adrenocortical insufficiency; E87.6 Hypokalemia; F25.1 Schizoaffective disorder, depressive type; E78.5 Hyperlipidemia, unspecified; E86.0 Dehydration; F17.210 Nicotine dependence, cigarettes, uncomplicated; Z71.6 Tobacco abuse counseling; Z79.52 Long term (current) use of systemic steroids; Z79.899 Other long term (current) drug therapy
CPT/HCPCS: 36415; 80048; 83605; 83735; 84100; 84132; 85027; 85048; 93005; J0456; J0696; J1650; J1720; J3480; S9485

== ENCOUNTER → 2024-01-28 14:42 | Outpatient (BNV) | payer MEDICARE, MEDICAID, SELFPAY | PROVIDERS: Admitting Provider Student in an Organized Health Care Education/Training Program; Visit Provider Student in an Organized Health Care Education/Training Program | DX: E87.6 Hypokalemia (principal); A41.9 Sepsis, unspecified organism; J18.9 Pneumonia, unspecified organism | CPT/HCPCS: 99222; 99232; 99239 ==

== ENCOUNTER → 2024-01-28 14:42 | Outpatient (BNV) | payer MEDICARE, MEDICAID, SELFPAY | PROVIDERS: Admitting Provider Student in an Organized Health Care Education/Training Program; Visit Provider Internal Medicine | DX: J18.9 Pneumonia, unspecified organism (principal); A41.9 Sepsis, unspecified organism; E27.40 Unspecified adrenocortical insufficiency; F25.1 Schizoaffective disorder, depressive type | CPT/HCPCS: 99222 ==

== ENCOUNTER 2024-01-31 12:54 | Outpatient (BNV) | payer MEDICARE, MEDICAID, SELFPAY | END 2024-04-09 22:15 | PROVIDERS: Admitting Provider Psychiatry & Neurology Psychiatry; Visit Provider Student in an Organized Health Care Education/Training Program | DX: J18.9 Pneumonia, unspecified organism (principal) | CPT/HCPCS: 71045 ==

== ENCOUNTER 2024-01-31 12:54 | Inpatient (IN) | payer MEDICARE, MEDICAID, SELFPAY ==
--- NOTE | ~2024-01-31 | XR_ITS ---
CLINICAL HISTORY: ?pneumonia 1 view chest x-ray Comparison: CR/SR - XR CHEST 1V - 01/28/24 10:47 EST Findings: Diffuse interstitial prominence in both lungs. No focal consolidation, pleural effusion or pneumothorax. Normal size heart. No acute fracture. IMPRESSION: 1. Mild diffuse interstitial prominence in both lungs may represent pulmonary vascular congestion /mild pulmonary edema. No focal consolidation. This document has been electronically signed by: Miah Morales MD on 04/09/2024 22:48:45
--- NOTE | 2024-01-31 13:27 | PHA.MEDREC ---
Pharmacy Consult ? Medication Reconciliation Pharmacy has completed the medication reconciliation. Patient is being transferred from S3 to S1. Med rec was updated.
--- NOTE | 2024-01-31 13:34 | P.HPPS_ITS ---
HPI Date of Service: 01/31/24 Chief Complaint: dementia Sources of Information: patient interviewed, chart reviewed and crisis/core team assessment reviewed HPI Subjective Notes: Plummer Warning and Conditional Voluntary Narrative: The patient is a 73-year-old female with a past history of schizoaffective disorder bipolar type who was initially admitted from the assisted living facility that she was residing for exacerbation of psychosis. The patient reported that she was paranoid, scared that the devil will burn her and she was grossly disorganized. She was restarted on her regular medications on Clozaril. While she was in the unit she decompensated medically and she was transferred to Medicine. After being medically cleared she is transferred back. On the intake, the patient reported that she is feeling fine that she does not have any symptoms and she does not want to take medications. She looks pleasantly confused but able to make her needs no. I offer her a conditional voluntary and she signed it. She was able to understand Plummer warning. Even though, we will reassess tomorrow. , Past Psychiatric History: Past psychiatric hospitalizations, most recently 08/17/2023 Medical Evaluation Reviewed: Yes [facility] Medical History Adrenal insufficiency Schizoaffective disorder, depressive type HLD (hyperlipidemia) Family History: Father alcoholism Social History: Patient grew up with her father and 2 sisters (1 now ) and 1 brother; their mother ran away when patient was 8 years old Patient remains in contact with her brother and sister who live locally Patient has 2 adult children, a 35-year-old daughter Leah and a 31-year-old son Yazan who lives locally Patient has been at [facility] for about 6 years and says she likes it Trauma History: Patient refers to growing up with alcoholic father who was scary Meds/Allergies Meds Home Medications ?Medication ?Instructions ?Recorded ?Confirmed ?Type cholecalciferol (vitamin D3) 25 25 mcg PO DAILY 12/25/23 01/31/24 History mcg (1,000 unit) capsule (Vitamin D3) fludrocortisone 0.1 mg tablet 0.1 mg PO BID 12/25/23 01/31/24 History prednisone 1 mg tablet 1 mg PO DAILY 12/25/23 01/31/24 History prednisone 5 mg tablet 5 mg PO DAILY 12/25/23 01/31/24 History risperidone 2 mg tablet 2 mg PO BID 12/25/23 01/31/24 History sennosides 8.6 mg tablet (senna) 17.2 mg PO DAILY 12/25/23 01/31/24 History Allergies Allergies Allergy/AdvReac Type Severity Reaction Status Date / Time No Known Allergies Allergy Verified 12/25/23 17:04 Mental Status Exam Mental Status Exam Patient Appearance: Appropriate Patient Orientation: Person and Situation Level of Consciousness: Awake and Appropriate Patient Behavior: Guarded and Passive Mood Description: Withdrawn Affect Description: Constricted Patient Cognition Impaired: Yes Ability to Follow Directions: Good Speech Pattern: Impoverished Hallucinations: None Delusions: Not Present Thought Process: Distracted and Slowed Thinking Thought Content: positive for [place] and positive for Poverty of Content Judgement: Poor Assessment & Plan Assessment & Plan (1) Schizoaffective disorder, depressive type: Status: Acute Code(s): F25.1 - Schizoaffective disorder, depressive type (2) Dementia: Status: Acute Code(s): F03.90 - Unspecified dementia, unspecified severity, without behavioral disturbance, psychotic disturbance, mood disturbance, and anxiety Plan The patient is an elderly female with a past history of schizoaffective disorder bipolar type, cognitive impairment and several medical comorbidities who was initially admitted for psychotic decompensation and needed to be transferred to Medicine due to sepsis. She was medically cleared transferring back into this facility for continuation of care. Plan 1. Gather more collateral information. 2. Continue with 15 minute checks. 3. Continue with Clozaril and other psychotropics. 4. Start discharge planning. Since the patient has been chronically psychotic. 5. We will continue with the recommendations of the medical team for continuation of care. . Patient educated on: diagnosis and therapeutic strategies Informed Consent: further education needed Reason for continued inpatient stay Substantial Risk for: harm to self, inability to function, rapid decompensation and med/psych decompensation Statement Statement: I have reviewed the history and physical and performed a pertinent examination on my patient. No changes have occurred unless specified. If the History and Physical was not performed prior to admission, the Hospitalist's service will be consulted for completing the admission physical. Time Spent With Patient Time: Total time managing care of this patient today __45__ minutes.
[2024-01-31 13:35] VITALS: BP 114/60; PULSE 93; RESP 18; TEMP 36.4; O2SAT 96
[2024-01-31 13:50] VITALS: BMI 23.2
--- NOTE | 2024-01-31 15:06 | PC.ADMIT ---
Addendum entered by PRABHAKAR Macias 01/31/24 16:44: Patient was transfered from S3 to unit via wheelchair on CV. She is alert and oriented to person, place and time but not situation. She was cooperative with admission process. Patient denies endorsing depression and anxiety but appears anxious, stated I will not take any antibiotics by mouth or IV that is poisoned. Affect is anxious. She denies S/I, H/I, hallucinations but appears internally preoccupied.On assessment skin is dry and intact except for peripheral IV site on the right arm. Patient is on droplet precautions having tested positive for para influenza. She has occassional dry coughs and is on room air. She refused all medications while in S3. Patient is on 15 minutes checks. Original Note: Patient transfered from S3 to unit at 1318 via wheelchair. She is alert and oriented to person, place and time and not situation. She is cooperative with admission. Patient denied anxiety and depression . Affect is anxious, stated I will not take any antibiotics by mouth or IV. On assessment her skin was dry and intact except for A peripheral IV line on the right.
[2024-01-31 20:00] VITALS: BP 130/81; PULSE 94; RESP 18; TEMP 36.8; O2SAT 93
[2024-01-31] MEDS: hydrOXYzine HCL 25 MG TABLET PO (21:32)
[2024-01-31] MEDS: traZODone HCL 50 MG TABLET PO (21:32)
[2024-01-31] MEDS: cloZAPine 100 MG TABLET PO (21:32)
[2024-01-31] MEDS: Fludrocortisone Acetate 0.1 MG TABLET PO (21:32)
[2024-01-31] MEDS: risperiDONE 2 MG TABLET PO (21:32)
[2024-02-01 07:00] VITALS: BMI 23.0
[2024-02-01 08:00] VITALS: BP 114/62; PULSE 97; RESP 18; TEMP 36.1; O2SAT 96
[2024-02-01] MEDS: Fludrocortisone Acetate 0.1 MG TABLET PO ×2 (08:39→20:08)
[2024-02-01 08:40] VITALS: BP 114/62
[2024-02-01] MEDS: predniSONE 1 MG TABLET PO (08:40)
[2024-02-01] MEDS: Sennosides 8.6 MG TABLET 17.2 MG PO (08:40)
[2024-02-01] MEDS: Atorvastatin Calcium 20 MG TABLET PO (08:40)
[2024-02-01] MEDS: predniSONE 5 MG TABLET PO (08:40)
[2024-02-01] MEDS: risperiDONE 2 MG TABLET PO ×2 (08:40→20:08)
[2024-02-01] MEDS: amLODIPine Besylate 5 MG TABLET PO (08:40)
[2024-02-01] MEDS: Cholecalciferol (Vitamin D3) 25 MCG TABLET PO (08:40)
[2024-02-01 09:03] LABS: Alanine Aminotransferase 13 U/L (0-31); Albumin Level 3.5 g/dL (3.5-5.0); Alkaline Phosphatase 65 U/L (39-117); Anion Gap 13 (12-20); Aspartate Amino Transferase 21 U/L (5-31); Bilirubin Total 0.4 mg/dL (0.0-1.0); Blood Urea Nitrogen 13 mg/dL (9-16); Calcium 9.1 mg/dL (8.4-10.2); Carbon Dioxide 28 mmol/L (22-29); Chloride 105 mmol/L (96-108); Cholesterol 165 mg/dL (<200); Creatinine Clr Calc Pharmacy 69.3; Estimated Glomerular Filt Rate > 60; Glucose Fasting 113 mg/dL (60-99); HDL Cholesterol 35 mg/dL (>40); LDL Cholesterol Calculated 110 mg/dL (<100); Potassium 3.1 mmol/L (3.3-5.1); Sodium 143 mmol/L (135-145); Total Protein 6.8 g/dL (6.5-8.0); Triglycerides 104 mg/dL (<150)
--- NOTE | 2024-02-01 12:11 | P.PNPSI_ITS ---
Subjective Subjective Date of Service: 02/01/24 Reason For Visit: dementia Subjective Notes: Conditional Voluntary Interim History: The nursing staff reported the patient had been cooperative but she had not been taking her medications. She still on droplet precautions on isolation. On interview the patient reported that she is not going to take any medications because she is doing fine. Poor insight into her condition. Mental Status Exam Mental Status Exam Patient Appearance: Appropriate Patient Orientation: Person and Situation Level of Consciousness: Awake Patient Behavior: Guarded and Passive Mood Description: Withdrawn Affect Description: Constricted Patient Cognition Impaired: Yes Ability to Follow Directions: Good Speech Pattern: Clear Hallucinations: Auditory Delusions: Paranoid Ideation and Ideas of Reference Thought Process: Distracted and Slowed Thinking Thought Content: positive for [place] and positive for Poverty of Content Judgement: Poor Diagnostics Vital Signs (24Hr): Vital Signs - 24 hr 01/31/24 13:35 01/31/24 20:00 02/01/24 08:00 Temperature 97.5 F 98.3 F 96.9 F Pulse Rate 93 94 97 Respiratory Rate 18 18 18 Blood Pressure 114/60 130/81 114/62 Pulse Oximetry 96 93 96 Oxygen Delivery Method Room Air Room Air Room Air 02/01/24 08:40 Temperature Pulse Rate Respiratory Rate Blood Pressure 114/62 Pulse Oximetry Oxygen Delivery Method BMI result Body Mass Index 23.0 Labs 02/01/24 08:26 Labs: Laboratory Results - last 48 hr 02/01/24 08:26 Sodium 143 Potassium 3.1 L Chloride 105 Carbon Dioxide 28 Anion Gap 13 BUN 13 Creatinine 0.66 Estim Creat Clear Calc 69.3 Estimated GFR > 60 Fasting Glucose 113 H Calcium 9.1 Total Bilirubin 0.4 AST 21 ALT 13 Alkaline Phosphatase 65 Total Protein 6.8 Albumin 3.5 Triglycerides 104 Cholesterol 165 LDL Cholesterol, Calc 110 H HDL Cholesterol 35 L Medications Medications Current Medications Acetaminophen (Acetaminophen 325 Mg Tablet) 650 mg PO Q6H PRN PRN Reason: Headache/Pain Mild Scale (1-3) Al Hydroxide/Mg Hydroxide (Magnesium Hydrox/Alum Hydrox 30 Ml Oral.Susp) 30 ml PO Q6H PRN PRN Reason: Heartburn/Nausea Amlodipine Besylate (Amlodipine Besylate 5 Mg Tablet) 5 mg PO DAILY [facility]; Protocol Last Admin: 02/01/24 08:40 Dose: 5 mg Atorvastatin Calcium (Atorvastatin Calcium 20 Mg Tablet) 20 mg PO DAILY [facility] Last Admin: 02/01/24 08:40 Dose: 20 mg Clozapine (Clozapine 100 Mg Tablet) 100 mg PO BEDTIME [facility] Last Admin: 01/31/24 21:32 Dose: 100 mg Fludrocortisone Acetate (Fludrocortisone Acetate 0.1 Mg Tablet) 0.1 mg PO BID [facility] Last Admin: 02/01/24 08:39 Dose: 0.1 mg Hydroxyzine HCl (Hydroxyzine Hcl 25 Mg Tablet) 25 mg PO Q6H PRN PRN Reason: Anxiety Last Admin: 01/31/24 21:32 Dose: 25 mg Magnesium Hydroxide (Milk Of Magnesia 30 Ml Oral.Susp) 30 ml PO DAILY PRN PRN Reason: Constipation Prednisone (Prednisone 1 Mg Tablet) 1 mg PO DAILY [facility] Last Admin: 02/01/24 08:40 Dose: 1 mg Prednisone (Prednisone 5 Mg Tablet) 5 mg PO DAILY [facility] Last Admin: 02/01/24 08:40 Dose: 5 mg Risperidone (Risperidone 2 Mg Tablet) 2 mg PO BID [facility] Last Admin: 02/01/24 08:40 Dose: 2 mg Senna (Sennosides 8.6 Mg Tablet) 17.2 mg PO DAILY [facility] Last Admin: 02/01/24 08:40 Dose: 17.2 mg Trazodone HCl (Trazodone Hcl 50 Mg Tablet) 50 mg PO BEDTIME MRX1 PRN PRN Reason: Insomnia Last Admin: 01/31/24 21:32 Dose: 50 mg Vitamin D (Cholecalciferol (Vitamin D3) 25 Mcg Tablet) 25 mcg PO DAILY [facility] Last Admin: 02/01/24 08:40 Dose: 25 mcg Allergies Allergies Allergy/AdvReac Type Severity Reaction Status Date / Time No Known Allergies Allergy Verified 12/25/23 17:04 Assessment & Plan Assessment & Plan (1) Schizoaffective disorder, depressive type: Status: Acute Code(s): F25.1 - Schizoaffective disorder, depressive type (2) Dementia: Status: Acute Code(s): F03.90 - Unspecified dementia, unspecified severity, without behavioral disturbance, psychotic disturbance, mood disturbance, and anxiety Plan The patient is an elderly female with a past history of schizoaffective disorder bipolar type, cognitive impairment and several medical comorbidities who was initially admitted for psychotic decompensation and needed to be transferred to Medicine due to sepsis. She was medically cleared transferring back into this facility for continuation of care. Plan 1. Gather more collateral information. 2. Continue with 15 minute checks. 3. Continue with Clozaril and other psychotropics. 4. Start discharge planning. Since the patient has been chronically psychotic. 5. We will continue with the recommendations of the medical team for continuation of care. . Reason for continued inpatient stay Substantial Risk for: inability to function, rapid decompensation and med/psych decompensation Time Spent With Patient Time: Total time managing care of this patient today __20__ minutes.
[2024-02-01 20:00] VITALS: BP 169/80; PULSE 100; RESP 18; TEMP 36.6; O2SAT 99
[2024-02-01] MEDS: cloZAPine 100 MG TABLET PO (20:08)
[2024-02-01] MEDS: traZODone HCL 50 MG TABLET PO (20:08)
--- NOTE | 2024-02-02 07:40 | P.PNPSI_ITS ---
Subjective Subjective Date of Service: 02/02/24 Reason For Visit: dementia Subjective Notes: Conditional Voluntary Interim History: The nursing staff reported the patient remains most of the time isolative but compliant with treatment, no changes in her mental status. On interview the patient reported that she is feeling fine no side effects with current treatment. Mental Status Exam Mental Status Exam Patient Appearance: Appropriate Patient Orientation: Person and Situation Level of Consciousness: Awake and Appropriate Patient Behavior: Guarded and Passive Mood Description: Withdrawn Affect Description: Constricted Patient Cognition Impaired: Yes Ability to Follow Directions: Good Speech Pattern: Clear Hallucinations: None Delusions: Paranoid Ideation and Ideas of Reference Thought Process: Distracted and Slowed Thinking Thought Content: positive for [place] and positive for Poverty of Content Judgement: Fair Diagnostics Vital Signs (24Hr): Vital Signs - 24 hr 02/01/24 08:00 02/01/24 08:40 02/01/24 20:00 Temperature 96.9 F 97.8 F Pulse Rate 97 100 Respiratory Rate 18 18 Blood Pressure 114/62 114/62 169/80 H Pulse Oximetry 96 99 Oxygen Delivery Method Room Air Room Air BMI result Body Mass Index 23.0 Labs 02/01/24 08:26 Labs: Laboratory Results - last 48 hr 02/01/24 08:26 Sodium 143 Potassium 3.1 L Chloride 105 Carbon Dioxide 28 Anion Gap 13 BUN 13 Creatinine 0.66 Estim Creat Clear Calc 69.3 Estimated GFR > 60 Fasting Glucose 113 H Calcium 9.1 Total Bilirubin 0.4 AST 21 ALT 13 Alkaline Phosphatase 65 Total Protein 6.8 Albumin 3.5 Triglycerides 104 Cholesterol 165 LDL Cholesterol, Calc 110 H HDL Cholesterol 35 L Medications Medications Current Medications Acetaminophen (Acetaminophen 325 Mg Tablet) 650 mg PO Q6H PRN PRN Reason: Headache/Pain Mild Scale (1-3) Al Hydroxide/Mg Hydroxide (Magnesium Hydrox/Alum Hydrox 30 Ml Oral.Susp) 30 ml PO Q6H PRN PRN Reason: Heartburn/Nausea Amlodipine Besylate (Amlodipine Besylate 5 Mg Tablet) 5 mg PO DAILY [facility]; Protocol Last Admin: 02/01/24 08:40 Dose: 5 mg Atorvastatin Calcium (Atorvastatin Calcium 20 Mg Tablet) 20 mg PO DAILY [facility] Last Admin: 02/01/24 08:40 Dose: 20 mg Clozapine (Clozapine 100 Mg Tablet) 100 mg PO BEDTIME [facility] Last Admin: 02/01/24 20:08 Dose: 100 mg Fludrocortisone Acetate (Fludrocortisone Acetate 0.1 Mg Tablet) 0.1 mg PO BID [facility] Last Admin: 02/01/24 20:08 Dose: 0.1 mg Hydroxyzine HCl (Hydroxyzine Hcl 25 Mg Tablet) 25 mg PO Q6H PRN PRN Reason: Anxiety Last Admin: 01/31/24 21:32 Dose: 25 mg Magnesium Hydroxide (Milk Of Magnesia 30 Ml Oral.Susp) 30 ml PO DAILY PRN PRN Reason: Constipation Prednisone (Prednisone 1 Mg Tablet) 1 mg PO DAILY [facility] Last Admin: 02/01/24 08:40 Dose: 1 mg Prednisone (Prednisone 5 Mg Tablet) 5 mg PO DAILY [facility] Last Admin: 02/01/24 08:40 Dose: 5 mg Risperidone (Risperidone 2 Mg Tablet) 2 mg PO BID [facility] Last Admin: 02/01/24 20:08 Dose: 2 mg Senna (Sennosides 8.6 Mg Tablet) 17.2 mg PO DAILY [facility] Last Admin: 02/01/24 08:40 Dose: 17.2 mg Trazodone HCl (Trazodone Hcl 50 Mg Tablet) 50 mg PO BEDTIME MRX1 PRN PRN Reason: Insomnia Last Admin: 02/01/24 20:08 Dose: 50 mg Vitamin D (Cholecalciferol (Vitamin D3) 25 Mcg Tablet) 25 mcg PO DAILY [facility] Last Admin: 02/01/24 08:40 Dose: 25 mcg Allergies Allergies Allergy/AdvReac Type Severity Reaction Status Date / Time No Known Allergies Allergy Verified 12/25/23 17:04 Assessment & Plan Assessment & Plan (1) Schizoaffective disorder, depressive type: Status: Acute Code(s): F25.1 - Schizoaffective disorder, depressive type (2) Dementia: Status: Acute Code(s): F03.90 - Unspecified dementia, unspecified severity, without behavioral disturbance, psychotic disturbance, mood disturbance, and anxiety Plan The patient is an elderly female with a past history of schizoaffective disorder bipolar type, cognitive impairment and several medical comorbidities who was initially admitted for psychotic decompensation and needed to be transferred to Medicine due to sepsis. She was medically cleared transferring back into this facility for continuation of care. Plan 1. Gather more collateral information. 2. Continue with 15 minute checks. 3. Continue with risperidone and other psychotropics. 4. Start discharge planning. Since the patient has been chronically psychotic. 5. We will continue with the recommendations of the medical team for continuation of care. . Still on droplet precautions. Reason for continued inpatient stay Substantial Risk for: inability to function, rapid decompensation and med/psych decompensation Time Spent With Patient Time: Total time managing care of this patient today __20__ minutes.
[2024-02-02 09:50] VITALS: BP 165/76; PULSE 85; RESP 18; TEMP 36.6; O2SAT 95
[2024-02-02 20:00] VITALS: BP 104/57; PULSE 87; TEMP 35.7; O2SAT 95
[2024-02-03 07:55] VITALS: BP 134/63; PULSE 79; RESP 18; TEMP 36.6; O2SAT 97
--- NOTE | 2024-02-03 08:00 | P.PNPSI_ITS ---
Subjective Subjective Date of Service: 02/03/24 Reason For Visit: dementia Subjective Notes: Conditional Voluntary Healthcare Proxy: Yes Interim History: Overall pleasant in room. Removed IV today which is no longer needed. With information writer reported that she felt safe, however did appear guarded. Doing okay with droplet precautions. Is some paranoia regarding medications, but reluctant to expand upon same. No evidence of SI or HI Medication Compliance: Yes Side effects from medications: No Attending Groups: No Review of Systems Acute medical concerns: No Review of Systems Review of Systems unremarkable Mental Status Exam Mental Status Exam Patient Appearance: Appropriate Patient Orientation: Person and Situation Level of Consciousness: Awake and Appropriate Patient Behavior: Guarded and Passive Mood Description: Withdrawn Affect Description: Constricted Patient Cognition Impaired: Yes Ability to Follow Directions: Good Speech Pattern: Clear Delusions: Paranoid Ideation Judgement: Poor Diagnostics Vital Signs (24Hr): Vital Signs - 24 hr 02/02/24 09:50 02/02/24 20:00 Temperature 97.9 F 96.3 F L Pulse Rate 85 87 Respiratory Rate 18 Blood Pressure 165/76 H 104/57 L Pulse Oximetry 95 95 Oxygen Delivery Method Room Air Room Air BMI result Body Mass Index 23.0 Labs 02/01/24 08:26 Labs: Laboratory Results - last 48 hr 02/01/24 08:26 Sodium 143 Potassium 3.1 L Chloride 105 Carbon Dioxide 28 Anion Gap 13 BUN 13 Creatinine 0.66 Estim Creat Clear Calc 69.3 Estimated GFR > 60 Fasting Glucose 113 H Calcium 9.1 Total Bilirubin 0.4 AST 21 ALT 13 Alkaline Phosphatase 65 Total Protein 6.8 Albumin 3.5 Triglycerides 104 Cholesterol 165 LDL Cholesterol, Calc 110 H HDL Cholesterol 35 L Medications Medications Current Medications Acetaminophen (Acetaminophen 325 Mg Tablet) 650 mg PO Q6H PRN PRN Reason: Headache/Pain Mild Scale (1-3) Al Hydroxide/Mg Hydroxide (Magnesium Hydrox/Alum Hydrox 30 Ml Oral.Susp) 30 ml PO Q6H PRN PRN Reason: Heartburn/Nausea Amlodipine Besylate (Amlodipine Besylate 5 Mg Tablet) 5 mg PO DAILY [facility]; Protocol Last Admin: 02/02/24 10:07 Dose: Not Given Atorvastatin Calcium (Atorvastatin Calcium 20 Mg Tablet) 20 mg PO DAILY [facility] Last Admin: 02/02/24 10:08 Dose: Not Given Clozapine (Clozapine 100 Mg Tablet) 100 mg PO BEDTIME [facility] Last Admin: 02/02/24 22:17 Dose: Not Given Fludrocortisone Acetate (Fludrocortisone Acetate 0.1 Mg Tablet) 0.1 mg PO BID [facility] Last Admin: 02/02/24 22:17 Dose: Not Given Hydroxyzine HCl (Hydroxyzine Hcl 25 Mg Tablet) 25 mg PO Q6H PRN PRN Reason: Anxiety Last Admin: 01/31/24 21:32 Dose: 25 mg Magnesium Hydroxide (Milk Of Magnesia 30 Ml Oral.Susp) 30 ml PO DAILY PRN PRN Reason: Constipation Prednisone (Prednisone 1 Mg Tablet) 1 mg PO DAILY [facility] Last Admin: 02/02/24 10:08 Dose: Not Given Prednisone (Prednisone 5 Mg Tablet) 5 mg PO DAILY [facility] Last Admin: 02/02/24 10:08 Dose: Not Given Risperidone (Risperidone 2 Mg Tablet) 2 mg PO BID [facility] Last Admin: 02/02/24 22:17 Dose: Not Given Senna (Sennosides 8.6 Mg Tablet) 17.2 mg PO DAILY [facility] Last Admin: 02/02/24 10:09 Dose: Not Given Trazodone HCl (Trazodone Hcl 50 Mg Tablet) 50 mg PO BEDTIME MRX1 PRN PRN Reason: Insomnia Last Admin: 02/01/24 20:08 Dose: 50 mg Vitamin D (Cholecalciferol (Vitamin D3) 25 Mcg Tablet) 25 mcg PO DAILY [facility] Last Admin: 02/02/24 10:08 Dose: Not Given Allergies Allergies Allergy/AdvReac Type Severity Reaction Status Date / Time No Known Allergies Allergy Verified 12/25/23 17:04 Assessment & Plan Assessment & Plan (1) Schizoaffective disorder, depressive type: Status: Acute Code(s): F25.1 - Schizoaffective disorder, depressive type (2) Dementia: Status: Acute Code(s): F03.90 - Unspecified dementia, unspecified severity, without behavioral disturbance, psychotic disturbance, mood disturbance, and anxiety Plan The patient is an elderly female with a past history of schizoaffective disorder bipolar type, cognitive impairment and several medical comorbidities who was initially admitted for psychotic decompensation and needed to be transferred to Medicine due to sepsis. She was medically cleared transferring back into this facility for continuation of care. Plan 1. Gather more collateral information. 2. Continue with 15 minute checks. 3. Continue with risperidone and other psychotropics. 4. Start discharge planning. Since the patient has been chronically psychotic. 5. We will continue with the recommendations of the medical team for continuation of care. . Still on droplet precautions. 02/03/2024: No changes to current regimen. Maintain droplet precautions. Disposition planning and would be unable to care for self without appropriate disposition in place. Reason for continued inpatient stay Substantial Risk for: inability to function and rapid decompensation Time Spent With Patient Time: Total time managing care of this patient today ____ minutes.
[2024-02-03 20:00] VITALS: BP 153/80; PULSE 99; RESP 16; TEMP 36.3; O2SAT 98
[2024-02-04 08:00] VITALS: BP 116/57; PULSE 76; RESP 20; TEMP 36.1; O2SAT 98
--- NOTE | 2024-02-04 08:29 | PC.NURSE ---
Patient on droplet precautions. Patient agreed to have vital signs taken but refused all medication even though she has high anxiety because she stated, I don't act right when I take them. This technical document writer offered her medications several times and she refused every time. No shortness of breath. Patient refused breakfast and stated, I'm not worried about it, so don't you worry about it, when asked about her PO intake.
--- NOTE | 2024-02-04 10:06 | P.PNPSI_ITS ---
Subjective Subjective Date of Service: 02/04/24 Reason For Visit: dementia Interim History: Overall pleasant in room. With telegraphic typewriter installer reported that she felt safe, however reains guarded and declining medications and paranoid and wont expand on reasons for same. Will need to lower clozapine back to 25mg as missed/declined doses x 2 days. No evidence of SI or HI Medication Compliance: No Side effects from medications: No Attending Groups: No Review of Systems Acute medical concerns: No Review of Systems Review of Systems unremarkable Mental Status Exam Mental Status Exam Patient Appearance: Appropriate Patient Orientation: Person and Situation Level of Consciousness: Awake and Appropriate Patient Behavior: Guarded and Passive Mood Description: Withdrawn Affect Description: Constricted Patient Cognition Impaired: Yes Ability to Follow Directions: Good Speech Pattern: Clear Diagnostics Vital Signs (24Hr): Vital Signs - 24 hr 02/03/24 20:00 02/04/24 08:00 Temperature 97.4 F 97 F Pulse Rate 99 76 Respiratory Rate 16 20 Blood Pressure 153/80 H 116/57 L Pulse Oximetry 98 98 Oxygen Delivery Method Room Air Room Air BMI result Body Mass Index 23.0 Labs 02/01/24 08:26 Medications Medications Current Medications Acetaminophen (Acetaminophen 325 Mg Tablet) 650 mg PO Q6H PRN PRN Reason: Headache/Pain Mild Scale (1-3) Al Hydroxide/Mg Hydroxide (Magnesium Hydrox/Alum Hydrox 30 Ml Oral.Susp) 30 ml PO Q6H PRN PRN Reason: Heartburn/Nausea Amlodipine Besylate (Amlodipine Besylate 5 Mg Tablet) 5 mg PO DAILY [facility]; Protocol Last Admin: 02/04/24 08:28 Dose: Not Given Atorvastatin Calcium (Atorvastatin Calcium 20 Mg Tablet) 20 mg PO DAILY [facility] Last Admin: 02/04/24 08:28 Dose: Not Given Clozapine (Clozapine 100 Mg Tablet) 100 mg PO BEDTIME [facility] Last Admin: 02/03/24 20:36 Dose: Not Given Fludrocortisone Acetate (Fludrocortisone Acetate 0.1 Mg Tablet) 0.1 mg PO BID [facility] Last Admin: 02/04/24 08:28 Dose: Not Given Hydroxyzine HCl (Hydroxyzine Hcl 25 Mg Tablet) 25 mg PO Q6H PRN PRN Reason: Anxiety Last Admin: 01/31/24 21:32 Dose: 25 mg Magnesium Hydroxide (Milk Of Magnesia 30 Ml Oral.Susp) 30 ml PO DAILY PRN PRN Reason: Constipation Prednisone (Prednisone 1 Mg Tablet) 1 mg PO DAILY [facility] Last Admin: 02/04/24 08:28 Dose: Not Given Prednisone (Prednisone 5 Mg Tablet) 5 mg PO DAILY [facility] Last Admin: 02/04/24 08:28 Dose: Not Given Risperidone (Risperidone 2 Mg Tablet) 2 mg PO BID [facility] Last Admin: 02/04/24 08:29 Dose: Not Given Senna (Sennosides 8.6 Mg Tablet) 17.2 mg PO DAILY [facility] Last Admin: 02/04/24 08:29 Dose: Not Given Trazodone HCl (Trazodone Hcl 50 Mg Tablet) 50 mg PO BEDTIME MRX1 PRN PRN Reason: Insomnia Last Admin: 02/01/24 20:08 Dose: 50 mg Vitamin D (Cholecalciferol (Vitamin D3) 25 Mcg Tablet) 25 mcg PO DAILY [facility] Last Admin: 02/04/24 08:28 Dose: Not Given Allergies Allergies Allergy/AdvReac Type Severity Reaction Status Date / Time No Known Allergies Allergy Verified 12/25/23 17:04 Assessment & Plan Assessment & Plan (1) Schizoaffective disorder, depressive type: Status: Acute Code(s): F25.1 - Schizoaffective disorder, depressive type (2) Dementia: Status: Acute Code(s): F03.90 - Unspecified dementia, unspecified severity, without behavioral disturbance, psychotic disturbance, mood disturbance, and anxiety Plan The patient is an elderly female with a past history of schizoaffective disorder bipolar type, cognitive impairment and several medical comorbidities who was initially admitted for psychotic decompensation and needed to be transferred to Medicine due to sepsis. She was medically cleared transferring back into this facility for continuation of care. Plan 1. Gather more collateral information. 2. Continue with 15 minute checks. 3. Continue with risperidone and other psychotropics. 4. Start discharge planning. Since the patient has been chronically psychotic. 5. We will continue with the recommendations of the medical team for continuation of care. . Still on droplet precautions. 02/04/2024: Lower clozapine back to 25mg as declined doses x 2 days. Encourage adherence. Disposition planning and would be unable to care for self without appropriate disposition in place. Reason for continued inpatient stay Substantial Risk for: inability to function Time Spent With Patient Time: Total time managing care of this patient today ____ minutes.
[2024-02-04] MEDS: hydrOXYzine HCL 25 MG TABLET PO (16:47)
--- NOTE | 2024-02-04 16:55 | PC.NURSE ---
Patient has not taken Clozaril for over 48 hours. Pharmacy called and spoke to Dr Catalan about decreasing patients Clozaril dose since she has been off of it for more than 48 hours. Patient did take Atarax 25 mg PO at 1650 for increased anxiety, effect pending. Patient now eating her dinner after being encouraged to eat and drink by this investigative writer.
--- NOTE | 2024-02-04 18:29 | PC.NURSE ---
The patient is extremely anxious during supper, short of breath and rocking in her bed. Patient given Atarax 25mg PO at 1647 with little effect. square dance caller Dr Watkins updated and asked for early dosing of 2100 Clozaril 25 or something else for anxiety/withdrawal. Per Dr. Watkins OK to give Clozaril due at 2100 now.
[2024-02-04] MEDS: cloZAPine 25 MG TABLET PO ×2 (18:36→19:07)
--- NOTE | 2024-02-04 18:38 | PC.NURSE ---
Patient is also nauseous. She did take the Clozaril 25mg for me.
--- NOTE | 2024-02-04 19:07 | PC.NURSE ---
Dr Watkins ordered an additional dose of Clozaril 25mg to be given now if the patient would take it and she did.
[2024-02-04 20:00] VITALS: BP 118/58; PULSE 87; RESP 18; TEMP 36.6; O2SAT 97
[2024-02-04] MEDS: risperiDONE 2 MG TABLET PO (21:09)
[2024-02-04] MEDS: Fludrocortisone Acetate 0.1 MG TABLET PO (21:09)
[2024-02-04] MEDS: traZODone HCL 50 MG TABLET PO (21:09)
[2024-02-05] MEDS: OLANZapine ODT 10 MG TAB.RAPDIS TRANSLINGU (02:59)
[2024-02-05 08:47] VITALS: BP 100/64; PULSE 76; RESP 18; TEMP 36.6; O2SAT 98
--- NOTE | 2024-02-05 10:00 | PC.NURSE ---
June declined morning medicine despite education and encouragement. Dr. Lowe notified.
--- NOTE | 2024-02-05 10:35 | P.PNPSI_ITS ---
Subjective Subjective Date of Service: 02/05/24 Reason For Visit: dementia Subjective Notes: Conditional Voluntary Interim History: The nursing staff reported the patient has refused all her medications at bedtime yesterday. Today his she refused her medications also today. On interview the patient stated that she does not like her medications because it makes her dizzy, I offered to lower the dose but she does not want to take any medications at this point. Mental Status Exam Mental Status Exam Patient Appearance: Well Grooomed and Appropriate Patient Orientation: Person and Situation Level of Consciousness: Awake and Appropriate Patient Behavior: Guarded and Passive Mood Description: Constricted Affect Description: Calm Patient Cognition Impaired: Yes Ability to Follow Directions: Good Speech Pattern: Clear Hallucinations: None Delusions: Paranoid Ideation and Ideas of Reference Thought Process: Distracted and Slowed Thinking Thought Content: positive for [place] and positive for Poverty of Content Judgement: Fair Diagnostics Vital Signs (24Hr): Vital Signs - 24 hr 02/04/24 20:00 02/05/24 08:47 Temperature 97.9 F 97.8 F Pulse Rate 87 76 Respiratory Rate 18 18 Blood Pressure 118/58 L 100/64 Pulse Oximetry 97 98 Oxygen Delivery Method Room Air Room Air BMI result Body Mass Index 23.0 Labs 02/01/24 08:26 Medications Medications Current Medications Acetaminophen (Acetaminophen 325 Mg Tablet) 650 mg PO Q6H PRN PRN Reason: Headache/Pain Mild Scale (1-3) Al Hydroxide/Mg Hydroxide (Magnesium Hydrox/Alum Hydrox 30 Ml Oral.Susp) 30 ml PO Q6H PRN PRN Reason: Heartburn/Nausea Amlodipine Besylate (Amlodipine Besylate 5 Mg Tablet) 5 mg PO DAILY [facility]; Protocol Last Admin: 02/05/24 08:48 Dose: Not Given Atorvastatin Calcium (Atorvastatin Calcium 20 Mg Tablet) 20 mg PO DAILY [facility] Last Admin: 02/05/24 08:48 Dose: Not Given Clozapine (Clozapine 100 Mg Tablet) 100 mg PO BEDTIME [facility] Fludrocortisone Acetate (Fludrocortisone Acetate 0.1 Mg Tablet) 0.1 mg PO BID [facility] Last Admin: 02/05/24 08:48 Dose: Not Given Magnesium Hydroxide (Milk Of Magnesia 30 Ml Oral.Susp) 30 ml PO DAILY PRN PRN Reason: Constipation Olanzapine (Olanzapine Odt 10 Mg Tab.Rapdis) 10 mg TRANSLINGU BID PRN PRN Reason: agitation Last Admin: 02/05/24 02:59 Dose: 10 mg Prednisone (Prednisone 1 Mg Tablet) 1 mg PO DAILY [facility] Last Admin: 02/05/24 08:49 Dose: Not Given Prednisone (Prednisone 5 Mg Tablet) 5 mg PO DAILY [facility] Last Admin: 02/05/24 08:49 Dose: Not Given Risperidone (Risperidone 2 Mg Tablet) 2 mg PO BID [facility] Last Admin: 02/05/24 08:49 Dose: Not Given Risperidone (Risperidone 1 Mg Tablet) 1 mg PO TID PRN PRN Reason: psychosis/agitation Senna (Sennosides 8.6 Mg Tablet) 17.2 mg PO DAILY [facility] Last Admin: 02/05/24 08:49 Dose: Not Given Trazodone HCl (Trazodone Hcl 50 Mg Tablet) 50 mg PO BEDTIME MRX1 PRN PRN Reason: Insomnia Last Admin: 02/04/24 21:09 Dose: 50 mg Vitamin D (Cholecalciferol (Vitamin D3) 25 Mcg Tablet) 25 mcg PO DAILY [facility] Last Admin: 02/05/24 08:48 Dose: Not Given Allergies Allergies Allergy/AdvReac Type Severity Reaction Status Date / Time No Known Allergies Allergy Verified 12/25/23 17:04 Assessment & Plan Assessment & Plan (1) Schizoaffective disorder, depressive type: Status: Acute Code(s): F25.1 - Schizoaffective disorder, depressive type (2) Dementia: Status: Acute Code(s): F03.90 - Unspecified dementia, unspecified severity, without behavioral disturbance, psychotic disturbance, mood disturbance, and anxiety Plan The patient is an elderly female with a past history of schizoaffective disorder bipolar type, cognitive impairment and several medical comorbidities who was initially admitted for psychotic decompensation and needed to be transferred to Medicine due to sepsis. She was medically cleared transferring back into this facility for continuation of care. Plan 1. Gather more collateral information. 2. Continue with 15 minute checks. 3. Continue with risperidone and other psychotropics. 4. Start discharge planning. Since the patient has been chronically psychotic. 5. We will continue with the recommendations of the medical team for continuation of care. . Still on droplet precautions. 6. Over the weekend her clozapine was lowered in order to assure compliance but she has refused it. Reason for continued inpatient stay Substantial Risk for: inability to function, rapid decompensation and med/psych decompensation Time Spent With Patient Time: Total time managing care of this patient today __20__ minutes.
--- NOTE | 2024-02-05 11:06 | PC.NURSE ---
Requested nicotine patch from Dr. Lowe per [facility] ([facility]) request.
[2024-02-05 20:00] VITALS: BP 107/55; PULSE 88; RESP 16; TEMP 36.1; O2SAT 100
[2024-02-06 09:07] VITALS: BP 104/60; PULSE 65; RESP 14; TEMP 36.1; O2SAT 97
[2024-02-06 09:08] LABS: Neut%MD 39.2 %; Neutrophils Absolute Auto 3.3 x10*3/uL (2.0-8.3); WBCANC 8.3 X10*3/uL
--- NOTE | 2024-02-06 12:00 | P.PNPSI_ITS ---
Subjective Subjective Date of Service: 02/06/24 Reason For Visit: dementia Subjective Notes: Conditional Voluntary Interim History: The nursing staff reported the patient had been visible, watching TV in the common areas of contact precautions. She has refused all her medications. On interview the patient denies new symptoms looks pleasantly confused Mental Status Exam Mental Status Exam Patient Appearance: Appropriate Patient Orientation: Person and Situation Level of Consciousness: Awake and Appropriate Patient Behavior: Guarded and Passive Mood Description: Withdrawn Affect Description: Constricted Patient Cognition Impaired: Yes Ability to Follow Directions: Good Speech Pattern: Clear Hallucinations: None Delusions: Paranoid Ideation and Ideas of Reference Thought Process: Distracted and Slowed Thinking Thought Content: positive for [place] and positive for Poverty of Content Judgement: Fair Diagnostics Vital Signs (24Hr): Vital Signs - 24 hr 02/05/24 20:00 02/06/24 09:07 Temperature 97 F 97 F Pulse Rate 88 65 Respiratory Rate 16 14 Blood Pressure 107/55 L 104/60 Pulse Oximetry 100 97 Oxygen Delivery Method Room Air Room Air BMI result Body Mass Index 23.0 Labs 02/01/24 08:26 Labs: Laboratory Results - last 48 hr 02/06/24 08:44 Absolute Neuts (auto) 3.3 Medications Medications Current Medications Acetaminophen (Acetaminophen 325 Mg Tablet) 650 mg PO Q6H PRN PRN Reason: Headache/Pain Mild Scale (1-3) Al Hydroxide/Mg Hydroxide (Magnesium Hydrox/Alum Hydrox 30 Ml Oral.Susp) 30 ml PO Q6H PRN PRN Reason: Heartburn/Nausea Amlodipine Besylate (Amlodipine Besylate 5 Mg Tablet) 5 mg PO DAILY [facility]; Protocol Last Admin: 02/06/24 09:52 Dose: Not Given Atorvastatin Calcium (Atorvastatin Calcium 20 Mg Tablet) 20 mg PO DAILY [facility] Last Admin: 02/06/24 09:52 Dose: Not Given Clozapine (Clozapine 100 Mg Tablet) 100 mg PO BEDTIME [facility] Last Admin: 02/05/24 22:05 Dose: Not Given Fludrocortisone Acetate (Fludrocortisone Acetate 0.1 Mg Tablet) 0.1 mg PO BID [facility] Last Admin: 02/06/24 09:53 Dose: Not Given Magnesium Hydroxide (Milk Of Magnesia 30 Ml Oral.Susp) 30 ml PO DAILY PRN PRN Reason: Constipation Olanzapine (Olanzapine Odt 10 Mg Tab.Rapdis) 10 mg TRANSLINGU BID PRN PRN Reason: agitation Last Admin: 02/05/24 02:59 Dose: 10 mg Prednisone (Prednisone 1 Mg Tablet) 1 mg PO DAILY [facility] Last Admin: 02/06/24 09:53 Dose: Not Given Prednisone (Prednisone 5 Mg Tablet) 5 mg PO DAILY [facility] Last Admin: 02/06/24 09:53 Dose: Not Given Risperidone (Risperidone 2 Mg Tablet) 2 mg PO BID [facility] Last Admin: 02/06/24 09:53 Dose: Not Given Risperidone (Risperidone 1 Mg Tablet) 1 mg PO TID PRN PRN Reason: psychosis/agitation Senna (Sennosides 8.6 Mg Tablet) 17.2 mg PO DAILY [facility] Last Admin: 02/06/24 09:53 Dose: Not Given Trazodone HCl (Trazodone Hcl 50 Mg Tablet) 50 mg PO BEDTIME MRX1 PRN PRN Reason: Insomnia Last Admin: 02/04/24 21:09 Dose: 50 mg Vitamin D (Cholecalciferol (Vitamin D3) 25 Mcg Tablet) 25 mcg PO DAILY [facility] Last Admin: 02/06/24 09:53 Dose: Not Given Allergies Allergies Allergy/AdvReac Type Severity Reaction Status Date / Time No Known Allergies Allergy Verified 12/25/23 17:04 Assessment & Plan Assessment & Plan (1) Schizoaffective disorder, depressive type: Status: Acute Code(s): F25.1 - Schizoaffective disorder, depressive type (2) Dementia: Status: Acute Code(s): F03.90 - Unspecified dementia, unspecified severity, without behavioral disturbance, psychotic disturbance, mood disturbance, and anxiety Plan The patient is an elderly female with a past history of schizoaffective disorder bipolar type, cognitive impairment and several medical comorbidities who was initially admitted for psychotic decompensation and needed to be transferred to Medicine due to sepsis. She was medically cleared transferring back into this facility for continuation of care. Plan 1. Gather more collateral information. 2. Continue with 15 minute checks. 3. Continue with risperidone and other psychotropics. 4. Start discharge planning. Since the patient has been chronically psychotic. 5. We will continue with the recommendations of the medical team for continuation of care. . Still on droplet precautions. 6. Over the weekend her clozapine was lowered in order to assure compliance but she has refused it. Reason for continued inpatient stay Substantial Risk for: inability to function, rapid decompensation and med/psych decompensation Time Spent With Patient Time: Total time managing care of this patient today _20___ minutes.
[2024-02-06] MEDS: risperiDONE 2 MG TABLET PO ×2 (14:18→20:08)
[2024-02-06 20:00] VITALS: BP 152/79; PULSE 109; RESP 18; TEMP 36.4; O2SAT 98
[2024-02-06] MEDS: OLANZapine ODT 10 MG TAB.RAPDIS TRANSLINGU (20:08)
[2024-02-06] MEDS: cloZAPine 100 MG TABLET PO (20:08)
[2024-02-06] MEDS: traZODone HCL 50 MG TABLET PO (20:08)
[2024-02-06] MEDS: Fludrocortisone Acetate 0.1 MG TABLET PO (20:08)
[2024-02-07 08:00] VITALS: BP 116/56; PULSE 85; RESP 16; TEMP 36.4; O2SAT 95
--- NOTE | 2024-02-07 08:42 | PC.NURSE ---
June refused all of her morning meds despite education provided on the importance of medication compliance. Dr. Lowe made aware via [employer].
--- NOTE | 2024-02-07 11:56 | HO.PSYCHPN ---
Subjective Subjective Date of Service: 02/07/24 Reason For Visit: dementia Subjective Notes: Conditional Voluntary Interim History: The nursing staff reported the patient verbalized depression and anxiety yesterday. She refused some for medications but she took PRNs. The occupational therapist attempts to do 1 group but she last at only 1 minute. On interview the patient looks internally preoccupied and anxious. She denies new symptoms. Mental Status Exam Mental Status Exam Patient Appearance: Appropriate Patient Orientation: Person and Situation Level of Consciousness: Awake Patient Behavior: Guarded and Passive Mood Description: Withdrawn Affect Description: Constricted Patient Cognition Impaired: Yes Ability to Follow Directions: Good Speech Pattern: Clear Hallucinations: None Delusions: Not Present Thought Process: Distracted and Slowed Thinking Thought Content: positive for [place] and positive for Poverty of Content Judgement: Poor Diagnostics Vital Signs (24Hr): Vital Signs - 24 hr 02/06/24 20:00 02/07/24 08:00 Temperature 97.5 F 97.5 F Pulse Rate 109 H 85 Respiratory Rate 18 16 Blood Pressure 152/79 H 116/56 L Pulse Oximetry 98 95 Oxygen Delivery Method Room Air Room Air BMI result Body Mass Index 23.0 Labs 02/01/24 08:26 Labs: Laboratory Results - last 48 hr 02/06/24 08:44 Absolute Neuts (auto) 3.3 Medications Medications Current Medications Acetaminophen (Acetaminophen 325 Mg Tablet) 650 mg PO Q6H PRN PRN Reason: Headache/Pain Mild Scale (1-3) Al Hydroxide/Mg Hydroxide (Magnesium Hydrox/Alum Hydrox 30 Ml Oral.Susp) 30 ml PO Q6H PRN PRN Reason: Heartburn/Nausea Amlodipine Besylate (Amlodipine Besylate 5 Mg Tablet) 5 mg PO DAILY [facility]; Protocol Last Admin: 02/07/24 08:41 Dose: Not Given Atorvastatin Calcium (Atorvastatin Calcium 20 Mg Tablet) 20 mg PO DAILY [facility] Last Admin: 02/07/24 08:41 Dose: Not Given Clozapine (Clozapine 100 Mg Tablet) 100 mg PO BEDTIME [facility] Last Admin: 02/06/24 20:08 Dose: 100 mg Fludrocortisone Acetate (Fludrocortisone Acetate 0.1 Mg Tablet) 0.1 mg PO BID [facility] Last Admin: 02/07/24 08:41 Dose: Not Given Magnesium Hydroxide (Milk Of Magnesia 30 Ml Oral.Susp) 30 ml PO DAILY PRN PRN Reason: Constipation Olanzapine (Olanzapine Odt 10 Mg Tab.Rapdis) 10 mg TRANSLINGU BID PRN PRN Reason: agitation Last Admin: 02/06/24 20:08 Dose: 10 mg Prednisone (Prednisone 1 Mg Tablet) 1 mg PO DAILY [facility] Last Admin: 02/07/24 08:41 Dose: Not Given Prednisone (Prednisone 5 Mg Tablet) 5 mg PO DAILY [facility] Last Admin: 02/07/24 08:41 Dose: Not Given Risperidone (Risperidone 2 Mg Tablet) 2 mg PO BID [facility] Last Admin: 02/07/24 08:42 Dose: Not Given Risperidone (Risperidone 1 Mg Tablet) 1 mg PO TID PRN PRN Reason: psychosis/agitation Senna (Sennosides 8.6 Mg Tablet) 17.2 mg PO DAILY [facility] Last Admin: 02/07/24 08:42 Dose: Not Given Trazodone HCl (Trazodone Hcl 50 Mg Tablet) 50 mg PO BEDTIME MRX1 PRN PRN Reason: Insomnia Last Admin: 02/06/24 20:08 Dose: 50 mg Vitamin D (Cholecalciferol (Vitamin D3) 25 Mcg Tablet) 25 mcg PO DAILY [facility] Last Admin: 02/07/24 08:41 Dose: Not Given Allergies Allergies Allergy/AdvReac Type Severity Reaction Status Date / Time No Known Allergies Allergy Verified 12/25/23 17:04 Assessment & Plan Assessment & Plan (1) Schizoaffective disorder, depressive type: Status: Acute Code(s): F25.1 - Schizoaffective disorder, depressive type (2) Dementia: Status: Acute Code(s): F03.90 - Unspecified dementia, unspecified severity, without behavioral disturbance, psychotic disturbance, mood disturbance, and anxiety Plan The patient is an elderly female with a past history of schizoaffective disorder bipolar type, cognitive impairment and several medical comorbidities who was initially admitted for psychotic decompensation and needed to be transferred to Medicine due to sepsis. She was medically cleared transferring back into this facility for continuation of care. Plan 1. Gather more collateral information. 2. Continue with 15 minute checks. 3. Continue with risperidone and other psychotropics. 4. Start discharge planning. Since the patient has been chronically psychotic. 5. We will continue with the recommendations of the medical team for continuation of care. . Still on droplet precautions. 6. Over the weekend her clozapine was lowered in order to assure compliance but she has refused it. She had been inconsistent with compliance. Reason for continued inpatient stay Substantial Risk for: inability to function, rapid decompensation and med/psych decompensation Time Spent With Patient Time: Total time managing care of this patient today __20__ minutes.
[2024-02-07 20:00] VITALS: BP 122/65; PULSE 87; RESP 15; TEMP 36.4; O2SAT 97
[2024-02-08 07:00] VITALS: BMI 22.5
[2024-02-08 08:00] VITALS: BP 116/66; PULSE 65; RESP 15; TEMP 37; O2SAT 96
--- NOTE | 2024-02-08 14:28 | P.PNPSI_ITS ---
Subjective Subjective Date of Service: 02/08/24 Reason For Visit: dementia Subjective Notes: Conditional Voluntary Interim History: The nursing staff reported the patient refused all her meds, she had 75 per her dinner and she slept 7 hours. She remains paranoid and seclusive. The occupational therapist reported that she is more active in the evening. On interview the patient denies new symptoms, waiting for placement. Mental Status Exam Mental Status Exam Patient Appearance: Appropriate Patient Orientation: Person and Situation Level of Consciousness: Awake and Appropriate Patient Behavior: Guarded and Passive Mood Description: Withdrawn Affect Description: Constricted Patient Cognition Impaired: Yes Ability to Follow Directions: Good Speech Pattern: Clear Hallucinations: None Delusions: Paranoid Ideation and Ideas of Reference Thought Process: Distracted and Slowed Thinking Thought Content: positive for [place] and positive for Poverty of Content Judgement: Fair Diagnostics Vital Signs (24Hr): Vital Signs - 24 hr 02/07/24 20:00 02/08/24 08:00 Temperature 97.6 F 98.6 F Pulse Rate 87 65 Respiratory Rate 15 15 Blood Pressure 122/65 116/66 Pulse Oximetry 97 96 Oxygen Delivery Method Room Air Room Air BMI result Body Mass Index 23.0 Labs 02/01/24 08:26 Medications Medications Current Medications Acetaminophen (Acetaminophen 325 Mg Tablet) 650 mg PO Q6H PRN PRN Reason: Headache/Pain Mild Scale (1-3) Al Hydroxide/Mg Hydroxide (Magnesium Hydrox/Alum Hydrox 30 Ml Oral.Susp) 30 ml PO Q6H PRN PRN Reason: Heartburn/Nausea Amlodipine Besylate (Amlodipine Besylate 5 Mg Tablet) 5 mg PO DAILY [facility]; Protocol Last Admin: 02/08/24 11:37 Dose: Not Given Atorvastatin Calcium (Atorvastatin Calcium 20 Mg Tablet) 20 mg PO DAILY [facility] Last Admin: 02/08/24 11:37 Dose: Not Given Clozapine (Clozapine 100 Mg Tablet) 100 mg PO BEDTIME [facility] Last Admin: 02/07/24 22:21 Dose: Not Given Fludrocortisone Acetate (Fludrocortisone Acetate 0.1 Mg Tablet) 0.1 mg PO BID [facility] Last Admin: 02/08/24 11:38 Dose: Not Given Magnesium Hydroxide (Milk Of Magnesia 30 Ml Oral.Susp) 30 ml PO DAILY PRN PRN Reason: Constipation Olanzapine (Olanzapine Odt 10 Mg Tab.Rapdis) 10 mg TRANSLINGU BID PRN PRN Reason: agitation Last Admin: 02/06/24 20:08 Dose: 10 mg Prednisone (Prednisone 1 Mg Tablet) 1 mg PO DAILY [facility] Last Admin: 02/08/24 11:38 Dose: Not Given Prednisone (Prednisone 5 Mg Tablet) 5 mg PO DAILY [facility] Last Admin: 02/08/24 11:38 Dose: Not Given Risperidone (Risperidone 2 Mg Tablet) 2 mg PO BID [facility] Last Admin: 02/08/24 11:38 Dose: Not Given Risperidone (Risperidone 1 Mg Tablet) 1 mg PO TID PRN PRN Reason: psychosis/agitation Senna (Sennosides 8.6 Mg Tablet) 17.2 mg PO DAILY [facility] Last Admin: 02/08/24 11:38 Dose: Not Given Trazodone HCl (Trazodone Hcl 50 Mg Tablet) 50 mg PO BEDTIME MRX1 PRN PRN Reason: Insomnia Last Admin: 02/06/24 20:08 Dose: 50 mg Vitamin D (Cholecalciferol (Vitamin D3) 25 Mcg Tablet) 25 mcg PO DAILY [facility] Last Admin: 02/08/24 11:37 Dose: Not Given Allergies Allergies Allergy/AdvReac Type Severity Reaction Status Date / Time No Known Allergies Allergy Verified 12/25/23 17:04 Assessment & Plan Assessment & Plan (1) Schizoaffective disorder, depressive type: Status: Acute Code(s): F25.1 - Schizoaffective disorder, depressive type (2) Dementia: Status: Acute Code(s): F03.90 - Unspecified dementia, unspecified severity, without behavioral disturbance, psychotic disturbance, mood disturbance, and anxiety Plan The patient is an elderly female with a past history of schizoaffective disorder bipolar type, cognitive impairment and several medical comorbidities who was initially admitted for psychotic decompensation and needed to be transferred to Medicine due to sepsis. She was medically cleared transferring back into this facility for continuation of care. Plan 1. Gather more collateral information. 2. Continue with 15 minute checks. 3. Continue with risperidone and other psychotropics. 4. Start discharge planning. Since the patient has been chronically psychotic. 5. We will continue with the recommendations of the medical team for continuation of care. . Still on droplet precautions. 6. Over the weekend her clozapine was lowered in order to assure compliance but she has refused it. She had been inconsistent with compliance. Reason for continued inpatient stay Substantial Risk for: inability to function, rapid decompensation and med/psych decompensation Time Spent With Patient Time: Total time managing care of this patient today __20__ minutes.
[2024-02-08 20:00] VITALS: PULSE 94; RESP 17; TEMP 36.4; O2SAT 98
[2024-02-08] MEDS: Fludrocortisone Acetate 0.1 MG TABLET PO (21:42)
[2024-02-09 08:00] VITALS: PULSE 95; RESP 18; TEMP 36.6; O2SAT 97
--- NOTE | 2024-02-09 11:12 | HO.PSYCHPN ---
Subjective Subjective Date of Service: 02/09/24 Reason For Visit: dementia Subjective Notes: Conditional Voluntary Interim History: The nursing staff reported the patient have declined room medications in the morning in the afternoon, she had been attention seeking in the evening. On interview the patient reported that she does not like medications in over-sedated her no insight into her condition. Mental Status Exam Mental Status Exam Patient Appearance: Appropriate Patient Orientation: Person and Situation Level of Consciousness: Awake and Appropriate Patient Behavior: Guarded and Passive Mood Description: Withdrawn Affect Description: Constricted Patient Cognition Impaired: Yes Ability to Follow Directions: Good Speech Pattern: Clear Hallucinations: None Delusions: Paranoid Ideation and Ideas of Reference Thought Process: Distracted and Slowed Thinking Thought Content: positive for [place] and positive for Poverty of Content Judgement: Poor Diagnostics Vital Signs (24Hr): Vital Signs - 24 hr 02/08/24 20:00 Temperature 97.6 F Pulse Rate 94 Respiratory Rate 17 Pulse Oximetry 98 Oxygen Delivery Method Room Air BMI result Body Mass Index 22.5 Labs 02/01/24 08:26 Medications Medications Current Medications Acetaminophen (Acetaminophen 325 Mg Tablet) 650 mg PO Q6H PRN PRN Reason: Headache/Pain Mild Scale (1-3) Al Hydroxide/Mg Hydroxide (Magnesium Hydrox/Alum Hydrox 30 Ml Oral.Susp) 30 ml PO Q6H PRN PRN Reason: Heartburn/Nausea Amlodipine Besylate (Amlodipine Besylate 5 Mg Tablet) 5 mg PO DAILY [facility]; Protocol Last Admin: 02/09/24 09:29 Dose: Not Given Atorvastatin Calcium (Atorvastatin Calcium 20 Mg Tablet) 20 mg PO DAILY [facility] Last Admin: 02/09/24 09:29 Dose: Not Given Clozapine (Clozapine 100 Mg Tablet) 100 mg PO BEDTIME [facility] Last Admin: 02/08/24 20:41 Dose: Not Given Fludrocortisone Acetate (Fludrocortisone Acetate 0.1 Mg Tablet) 0.1 mg PO BID [facility] Last Admin: 02/09/24 09:29 Dose: Not Given Magnesium Hydroxide (Milk Of Magnesia 30 Ml Oral.Susp) 30 ml PO DAILY PRN PRN Reason: Constipation Olanzapine (Olanzapine Odt 10 Mg Tab.Rapdis) 10 mg TRANSLINGU BID PRN PRN Reason: agitation Last Admin: 02/06/24 20:08 Dose: 10 mg Prednisone (Prednisone 1 Mg Tablet) 1 mg PO DAILY [facility] Last Admin: 02/09/24 09:29 Dose: Not Given Prednisone (Prednisone 5 Mg Tablet) 5 mg PO DAILY [facility] Last Admin: 02/09/24 09:29 Dose: Not Given Risperidone (Risperidone 2 Mg Tablet) 2 mg PO BID [facility] Last Admin: 02/09/24 09:30 Dose: Not Given Risperidone (Risperidone 1 Mg Tablet) 1 mg PO TID PRN PRN Reason: psychosis/agitation Senna (Sennosides 8.6 Mg Tablet) 17.2 mg PO DAILY [facility] Last Admin: 02/09/24 09:30 Dose: Not Given Trazodone HCl (Trazodone Hcl 50 Mg Tablet) 50 mg PO BEDTIME MRX1 PRN PRN Reason: Insomnia Last Admin: 02/06/24 20:08 Dose: 50 mg Vitamin D (Cholecalciferol (Vitamin D3) 25 Mcg Tablet) 25 mcg PO DAILY [facility] Last Admin: 02/09/24 09:29 Dose: Not Given Allergies Allergies Allergy/AdvReac Type Severity Reaction Status Date / Time No Known Allergies Allergy Verified 12/25/23 17:04 Assessment & Plan Assessment & Plan (1) Schizoaffective disorder, depressive type: Status: Acute Code(s): F25.1 - Schizoaffective disorder, depressive type (2) Dementia: Status: Acute Code(s): F03.90 - Unspecified dementia, unspecified severity, without behavioral disturbance, psychotic disturbance, mood disturbance, and anxiety Plan The patient is an elderly female with a past history of schizoaffective disorder bipolar type, cognitive impairment and several medical comorbidities who was initially admitted for psychotic decompensation and needed to be transferred to Medicine due to sepsis. She was medically cleared transferring back into this facility for continuation of care. Plan 1. Gather more collateral information. 2. Continue with 15 minute checks. 3. Continue with risperidone and other psychotropics. 4. Start discharge planning. Since the patient has been chronically psychotic. 5. We will continue with the recommendations of the medical team for continuation of care. . Still on droplet precautions. 6. Over the weekend her clozapine was lowered in order to assure compliance but she has refused it. She had been inconsistent with compliance. Reason for continued inpatient stay Substantial Risk for: inability to function, rapid decompensation and med/psych decompensation Time Spent With Patient Time: Total time managing care of this patient today __20__ minutes.
[2024-02-09 20:00] VITALS: BP 117/79; PULSE 93; RESP 18; TEMP 36
--- NOTE | 2024-02-10 06:43 | P.PNPSI_ITS ---
Subjective Subjective Date of Service: 02/10/24 Reason For Visit: dementia Interim History: The nursing staff reported the patient remains isolative, she refused vital signs and medications. On interview the patient denies new symptoms looks internally preoccupied. We are going to encourage compliance with medications. Mental Status Exam Mental Status Exam Patient Appearance: Appropriate Patient Orientation: Person and Situation Level of Consciousness: Awake and Appropriate Patient Behavior: Guarded and Passive Mood Description: Withdrawn Affect Description: Constricted Patient Cognition Impaired: Yes Ability to Follow Directions: Good Speech Pattern: Clear Hallucinations: None Delusions: Paranoid Ideation and Ideas of Reference Thought Process: Distracted and Slowed Thinking Thought Content: positive for Poverty of Content and positive for Thought Blocking Judgement: Poor Diagnostics Vital Signs (24Hr): Vital Signs - 24 hr 02/09/24 08:00 02/09/24 20:00 Temperature 98 F 96.8 F Pulse Rate 95 93 Respiratory Rate 18 18 Blood Pressure 117/79 Pulse Oximetry 97 Oxygen Delivery Method Room Air BMI result Body Mass Index 22.5 Labs 02/01/24 08:26 Medications Medications Current Medications Acetaminophen (Acetaminophen 325 Mg Tablet) 650 mg PO Q6H PRN PRN Reason: Headache/Pain Mild Scale (1-3) Al Hydroxide/Mg Hydroxide (Magnesium Hydrox/Alum Hydrox 30 Ml Oral.Susp) 30 ml PO Q6H PRN PRN Reason: Heartburn/Nausea Amlodipine Besylate (Amlodipine Besylate 5 Mg Tablet) 5 mg PO DAILY [facility]; Protocol Last Admin: 02/09/24 09:29 Dose: Not Given Atorvastatin Calcium (Atorvastatin Calcium 20 Mg Tablet) 20 mg PO DAILY [facility] Last Admin: 02/09/24 09:29 Dose: Not Given Clozapine (Clozapine 100 Mg Tablet) 100 mg PO BEDTIME [facility] Last Admin: 02/09/24 20:47 Dose: Not Given Fludrocortisone Acetate (Fludrocortisone Acetate 0.1 Mg Tablet) 0.1 mg PO BID [facility] Last Admin: 02/09/24 20:47 Dose: Not Given Magnesium Hydroxide (Milk Of Magnesia 30 Ml Oral.Susp) 30 ml PO DAILY PRN PRN Reason: Constipation Olanzapine (Olanzapine Odt 10 Mg Tab.Rapdis) 10 mg TRANSLINGU BID PRN PRN Reason: agitation Last Admin: 02/06/24 20:08 Dose: 10 mg Prednisone (Prednisone 1 Mg Tablet) 1 mg PO DAILY [facility] Last Admin: 02/09/24 09:29 Dose: Not Given Prednisone (Prednisone 5 Mg Tablet) 5 mg PO DAILY [facility] Last Admin: 02/09/24 09:29 Dose: Not Given Risperidone (Risperidone 2 Mg Tablet) 2 mg PO BID [facility] Last Admin: 02/09/24 20:47 Dose: Not Given Risperidone (Risperidone 1 Mg Tablet) 1 mg PO TID PRN PRN Reason: psychosis/agitation Senna (Sennosides 8.6 Mg Tablet) 17.2 mg PO DAILY [facility] Last Admin: 02/09/24 09:30 Dose: Not Given Trazodone HCl (Trazodone Hcl 50 Mg Tablet) 50 mg PO BEDTIME MRX1 PRN PRN Reason: Insomnia Last Admin: 02/06/24 20:08 Dose: 50 mg Vitamin D (Cholecalciferol (Vitamin D3) 25 Mcg Tablet) 25 mcg PO DAILY [facility] Last Admin: 02/09/24 09:29 Dose: Not Given Allergies Allergies Allergy/AdvReac Type Severity Reaction Status Date / Time No Known Allergies Allergy Verified 12/25/23 17:04 Assessment & Plan Assessment & Plan (1) Schizoaffective disorder, depressive type: Status: Acute Code(s): F25.1 - Schizoaffective disorder, depressive type (2) Dementia: Status: Acute Code(s): F03.90 - Unspecified dementia, unspecified severity, without behavioral disturbance, psychotic disturbance, mood disturbance, and anxiety Plan The patient is an elderly female with a past history of schizoaffective disorder bipolar type, cognitive impairment and several medical comorbidities who was initially admitted for psychotic decompensation and needed to be transferred to Medicine due to sepsis. She was medically cleared transferring back into this facility for continuation of care. Plan 1. Gather more collateral information. 2. Continue with 15 minute checks. 3. Continue with risperidone and other psychotropics. 4. Start discharge planning. Since the patient has been chronically psychotic. 5. We will continue with the recommendations of the medical team for continuation of care. . Still on droplet precautions. 6. Over the weekend her clozapine was lowered in order to assure compliance but she has refused it. She had been inconsistent with compliance. Reason for continued inpatient stay Substantial Risk for: inability to function, rapid decompensation and med/psych decompensation Time Spent With Patient Time: Total time managing care of this patient today __20__ minutes.
[2024-02-10 09:18] VITALS: BP 140/82; PULSE 77; RESP 18; TEMP 36.3; O2SAT 99
--- NOTE | 2024-02-10 09:27 | PC.NURSE ---
June declined morning medications despite education and encouragement. Dr. Lowe notified.
--- NOTE | 2024-02-10 11:49 | PC.NURSE ---
Refused breakfast and lunch. Per [facility] Annika po intake has been poor. Requested order for dietary consult from Dr. Lowe.
[2024-02-10 20:00] VITALS: BP 103/61; PULSE 83; RESP 18; TEMP 36.4; O2SAT 98
[2024-02-11] MEDS: OLANZapine ODT 10 MG TAB.RAPDIS TRANSLINGU (01:19)
--- NOTE | 2024-02-11 06:44 | P.PNPSI_ITS ---
Subjective Subjective Date of Service: 02/11/24 Reason For Visit: dementia Healthcare Proxy: Yes Interim History: The nursing staff reported the patient had been noncompliant with medications, Risperdal on Clozaril for several days, even though the patient remains seclusive. On interview the patient denies new symptoms, I encourage compliance. Mental Status Exam Mental Status Exam Patient Appearance: Appropriate Patient Orientation: Person Level of Consciousness: Awake Patient Behavior: Guarded and Passive Mood Description: Withdrawn Affect Description: Constricted Patient Cognition Impaired: Yes Ability to Follow Directions: Good Speech Pattern: Clear Hallucinations: Auditory Delusions: Paranoid Ideation and Ideas of Reference Thought Process: Distracted and Slowed Thinking Thought Content: positive for [place] and positive for Poverty of Content Judgement: Poor Diagnostics Vital Signs (24Hr): Vital Signs - 24 hr 02/10/24 09:18 02/10/24 20:00 Temperature 97.3 F 97.5 F Pulse Rate 77 83 Respiratory Rate 18 18 Blood Pressure 140/82 H 103/61 Pulse Oximetry 99 98 Oxygen Delivery Method Room Air Room Air BMI result Body Mass Index 22.5 Labs 02/01/24 08:26 Medications Medications Current Medications Acetaminophen (Acetaminophen 325 Mg Tablet) 650 mg PO Q6H PRN PRN Reason: Headache/Pain Mild Scale (1-3) Al Hydroxide/Mg Hydroxide (Magnesium Hydrox/Alum Hydrox 30 Ml Oral.Susp) 30 ml PO Q6H PRN PRN Reason: Heartburn/Nausea Amlodipine Besylate (Amlodipine Besylate 5 Mg Tablet) 5 mg PO DAILY [facility]; Protocol Last Admin: 02/10/24 09:51 Dose: Not Given Atorvastatin Calcium (Atorvastatin Calcium 20 Mg Tablet) 20 mg PO DAILY [facility] Last Admin: 02/10/24 09:51 Dose: Not Given Clozapine (Clozapine 100 Mg Tablet) 100 mg PO BEDTIME [facility] Last Admin: 02/10/24 22:06 Dose: Not Given Fludrocortisone Acetate (Fludrocortisone Acetate 0.1 Mg Tablet) 0.1 mg PO BID [facility] Last Admin: 02/10/24 22:06 Dose: Not Given Magnesium Hydroxide (Milk Of Magnesia 30 Ml Oral.Susp) 30 ml PO DAILY PRN PRN Reason: Constipation Olanzapine (Olanzapine Odt 10 Mg Tab.Rapdis) 10 mg TRANSLINGU BID PRN PRN Reason: agitation Last Admin: 02/11/24 01:19 Dose: 10 mg Prednisone (Prednisone 1 Mg Tablet) 1 mg PO DAILY [facility] Last Admin: 02/10/24 09:51 Dose: Not Given Prednisone (Prednisone 5 Mg Tablet) 5 mg PO DAILY [facility] Last Admin: 02/10/24 09:51 Dose: Not Given Risperidone (Risperidone 2 Mg Tablet) 2 mg PO BID [facility] Last Admin: 02/10/24 22:06 Dose: Not Given Risperidone (Risperidone 1 Mg Tablet) 1 mg PO TID PRN PRN Reason: psychosis/agitation Senna (Sennosides 8.6 Mg Tablet) 17.2 mg PO DAILY [facility] Last Admin: 02/10/24 09:51 Dose: Not Given Trazodone HCl (Trazodone Hcl 50 Mg Tablet) 50 mg PO BEDTIME MRX1 PRN PRN Reason: Insomnia Last Admin: 02/06/24 20:08 Dose: 50 mg Vitamin D (Cholecalciferol (Vitamin D3) 25 Mcg Tablet) 25 mcg PO DAILY [facility] Last Admin: 02/10/24 09:51 Dose: Not Given Allergies Allergies Allergy/AdvReac Type Severity Reaction Status Date / Time No Known Allergies Allergy Verified 12/25/23 17:04 Assessment & Plan Assessment & Plan (1) Schizoaffective disorder, depressive type: Status: Acute Code(s): F25.1 - Schizoaffective disorder, depressive type (2) Dementia: Status: Acute Code(s): F03.90 - Unspecified dementia, unspecified severity, without behavioral disturbance, psychotic disturbance, mood disturbance, and anxiety Plan The patient is an elderly female with a past history of schizoaffective disorder bipolar type, cognitive impairment and several medical comorbidities who was initially admitted for psychotic decompensation and needed to be transferred to Medicine due to sepsis. She was medically cleared transferring back into this facility for continuation of care. Plan 1. Gather more collateral information. 2. Continue with 15 minute checks. 3. Continue with risperidone and other psychotropics. 4. Start discharge planning. Since the patient has been chronically psychotic. 5. We will continue with the recommendations of the medical team for continuation of care. . Still on droplet precautions. 6. Over the weekend her clozapine was lowered in order to assure compliance but she has refused it. She had been inconsistent with compliance. Reason for continued inpatient stay Substantial Risk for: inability to function, rapid decompensation and med/psych decompensation Time Spent With Patient Time: Total time managing care of this patient today __20__ minutes.
[2024-02-11 09:03] VITALS: BP 140/60; PULSE 72; RESP 18; TEMP 36.8; O2SAT 99
[2024-02-11 20:00] VITALS: BP 110/55; PULSE 67; RESP 18; TEMP 36.3; O2SAT 98
[2024-02-12 09:03] VITALS: BP 110/59; PULSE 57; RESP 19; TEMP 35.7; O2SAT 97
--- NOTE | 2024-02-12 13:49 | P.PNPSI_ITS ---
Subjective Subjective Date of Service: 02/12/24 Reason For Visit: dementia Subjective Notes: Conditional Voluntary Healthcare Proxy: Yes Interim History: The nursing staff reported the patient had been refusing her Clozaril and Risperdal. We are waiting for guardianship papers that was already filed. Today on interview the patient complained of lesions on her mouth so we are doing some more at yet. I am changing her medications to Zyprexa that she used as a p.r.n. Mental Status Exam Mental Status Exam Patient Appearance: Appropriate Patient Orientation: Person and Situation Level of Consciousness: Awake and Appropriate Patient Behavior: Guarded and Passive Mood Description: Withdrawn Affect Description: Constricted Patient Cognition Impaired: Yes Ability to Follow Directions: Good Speech Pattern: Clear Hallucinations: Auditory Delusions: Paranoid Ideation and Ideas of Reference Thought Process: Distracted and Slowed Thinking Thought Content: positive for [place] and positive for Poverty of Content Judgement: Fair Diagnostics Vital Signs (24Hr): Vital Signs - 24 hr 02/11/24 20:00 02/12/24 09:03 Temperature 97.4 F 96.2 F L Pulse Rate 67 57 Respiratory Rate 18 19 Blood Pressure 110/55 L 110/59 L Pulse Oximetry 98 97 Oxygen Delivery Method Room Air Room Air BMI result Body Mass Index 22.5 Labs 02/01/24 08:26 Medications Medications Current Medications Acetaminophen (Acetaminophen 325 Mg Tablet) 650 mg PO Q6H PRN PRN Reason: Headache/Pain Mild Scale (1-3) Al Hydroxide/Mg Hydroxide (Magnesium Hydrox/Alum Hydrox 30 Ml Oral.Susp) 30 ml PO Q6H PRN PRN Reason: Heartburn/Nausea Amlodipine Besylate (Amlodipine Besylate 5 Mg Tablet) 5 mg PO DAILY [facility]; Protocol Last Admin: 02/12/24 09:07 Dose: Not Given Atorvastatin Calcium (Atorvastatin Calcium 20 Mg Tablet) 20 mg PO DAILY [facility] Last Admin: 02/12/24 09:07 Dose: Not Given Benzocaine (Benzocaine 20 % Oral Gel 9 Gm Tube) 1 appl MUCOUS MEM QID PRN; Protocol PRN Reason: Pain, Mild (Pain Scale 1-3) Clozapine (Clozapine 100 Mg Tablet) 100 mg PO BEDTIME [facility] Last Admin: 02/11/24 20:12 Dose: Not Given Fludrocortisone Acetate (Fludrocortisone Acetate 0.1 Mg Tablet) 0.1 mg PO BID [facility] Last Admin: 02/12/24 09:07 Dose: Not Given Magnesium Hydroxide (Milk Of Magnesia 30 Ml Oral.Susp) 30 ml PO DAILY PRN PRN Reason: Constipation Olanzapine (Olanzapine Odt 10 Mg Tab.Rapdis) 10 mg TRANSLINGU BID PRN PRN Reason: agitation Last Admin: 02/11/24 01:19 Dose: 10 mg Olanzapine (Olanzapine Odt 10 Mg Tab.Rapdis) 5 mg TRANSLINGU BEDTIME [facility] Prednisone (Prednisone 1 Mg Tablet) 1 mg PO DAILY [facility] Last Admin: 02/12/24 09:07 Dose: Not Given Prednisone (Prednisone 5 Mg Tablet) 5 mg PO DAILY [facility] Last Admin: 02/12/24 09:07 Dose: Not Given Risperidone (Risperidone 1 Mg Tablet) 1 mg PO TID PRN PRN Reason: psychosis/agitation Senna (Sennosides 8.6 Mg Tablet) 17.2 mg PO DAILY [facility] Last Admin: 02/12/24 09:07 Dose: Not Given Trazodone HCl (Trazodone Hcl 50 Mg Tablet) 50 mg PO BEDTIME MRX1 PRN PRN Reason: Insomnia Last Admin: 02/06/24 20:08 Dose: 50 mg Vitamin D (Cholecalciferol (Vitamin D3) 25 Mcg Tablet) 25 mcg PO DAILY [facility] Last Admin: 02/12/24 09:07 Dose: Not Given Allergies Allergies Allergy/AdvReac Type Severity Reaction Status Date / Time No Known Allergies Allergy Verified 12/25/23 17:04 Assessment & Plan Assessment & Plan (1) Schizoaffective disorder, depressive type: Status: Acute Code(s): F25.1 - Schizoaffective disorder, depressive type (2) Dementia: Status: Acute Code(s): F03.90 - Unspecified dementia, unspecified severity, without behavioral disturbance, psychotic disturbance, mood disturbance, and anxiety Plan The patient is an elderly female with a past history of schizoaffective disorder bipolar type, cognitive impairment and several medical comorbidities who was initially admitted for psychotic decompensation and needed to be transferred to Medicine due to sepsis. She was medically cleared transferring back into this facility for continuation of care. Plan 1. Gather more collateral information. 2. Continue with 15 minute checks. 3. Continue with risperidone and other psychotropics. 4. Start discharge planning. Since the patient has been chronically psychotic. 5. We will continue with the recommendations of the medical team for continuation of care. . Still on droplet precautions. 6. Over the weekend her clozapine was lowered in order to assure compliance but she has refused it. She had been inconsistent with compliance. 7. We are discontinue Clozaril and Risperdal and starting Zyprexa Zydis 5 mg p.o. q.h.s. on February 11. Reason for continued inpatient stay Substantial Risk for: inability to function, rapid decompensation and med/psych decompensation Time Spent With Patient Time: Total time managing care of this patient today __20__ minutes.
[2024-02-12 20:00] VITALS: BP 135/60; PULSE 87; RESP 18; TEMP 36.1; O2SAT 99
[2024-02-13] MEDS: traZODone HCL 50 MG TABLET PO (01:39)
[2024-02-13 07:12] LABS: Neut%MD 36.8 %; Neutrophils Absolute Auto 1.9 x10*3/uL (2.0-8.3); WBCANC 5.2 X10*3/uL
[2024-02-13 08:00] VITALS: BP 119/69; PULSE 69; RESP 17; TEMP 36.5; O2SAT 96
--- NOTE | 2024-02-13 11:31 | HO.WOUND ---
Wound Consult: Initial 73yr old female? admitted to [facility] on 01/31/24 - See progress notes and H&P for detailed history.? Wound consult placed for Abdominal skin Folds.? Patient agreeable to assessment and photo documentation.? Skin is intact - no skin injury noted no MASD noted no fungal dermatitis noted. No topical interventions needed at this time. Discussed and assessed with direct care nurse.
--- NOTE | 2024-02-13 16:23 | P.PNPSI_ITS ---
Subjective Subjective Date of Service: 02/13/24 Reason For Visit: dementia Subjective Notes: Conditional Voluntary Interim History: The nursing staff reported the patient has refused all her medications she stated that she wants to . She ate only snacks and slept 5 hours. On interview the patient denies new symptoms. She looks internally preoccupied noncompliant. Mental Status Exam Mental Status Exam Patient Appearance: Appropriate Patient Orientation: Person and Situation Level of Consciousness: Awake Patient Behavior: Guarded and Passive Mood Description: Withdrawn Affect Description: Constricted Patient Cognition Impaired: Yes Ability to Follow Directions: Good Speech Pattern: Clear Hallucinations: None Delusions: Paranoid Ideation and Ideas of Reference Thought Process: Distracted and Slowed Thinking Thought Content: positive for [place] and positive for Poverty of Content Judgement: Fair Diagnostics Vital Signs (24Hr): Vital Signs - 24 hr 02/12/24 20:00 02/13/24 08:00 Temperature 97.0 F 97.7 F Pulse Rate 87 69 Respiratory Rate 18 17 Blood Pressure 135/60 119/69 Pulse Oximetry 99 96 Oxygen Delivery Method Room Air Room Air BMI result Body Mass Index 22.5 Labs 02/01/24 08:26 Labs: Laboratory Results - last 48 hr 02/13/24 06:55 Absolute Neuts (auto) 1.9 L Medications Medications Current Medications Acetaminophen (Acetaminophen 325 Mg Tablet) 650 mg PO Q6H PRN PRN Reason: Headache/Pain Mild Scale (1-3) Al Hydroxide/Mg Hydroxide (Magnesium Hydrox/Alum Hydrox 30 Ml Oral.Susp) 30 ml PO Q6H PRN PRN Reason: Heartburn/Nausea Amlodipine Besylate (Amlodipine Besylate 5 Mg Tablet) 5 mg PO DAILY [facility]; Protocol Last Admin: 02/13/24 09:14 Dose: Not Given Atorvastatin Calcium (Atorvastatin Calcium 20 Mg Tablet) 20 mg PO DAILY [facility] Last Admin: 02/13/24 09:14 Dose: Not Given Benzocaine (Benzocaine 20 % Oral Gel 9 Gm Tube) 1 appl MUCOUS MEM QID PRN; Protocol PRN Reason: Pain, Mild (Pain Scale 1-3) Clozapine (Clozapine 100 Mg Tablet) 100 mg PO BEDTIME [facility] Last Admin: 02/11/24 20:12 Dose: Not Given Fludrocortisone Acetate (Fludrocortisone Acetate 0.1 Mg Tablet) 0.1 mg PO BID [facility] Last Admin: 02/13/24 09:14 Dose: Not Given Magnesium Hydroxide (Milk Of Magnesia 30 Ml Oral.Susp) 30 ml PO DAILY PRN PRN Reason: Constipation Olanzapine (Olanzapine Odt 10 Mg Tab.Rapdis) 10 mg TRANSLINGU BID PRN PRN Reason: agitation Last Admin: 02/11/24 01:19 Dose: 10 mg Olanzapine (Olanzapine Odt 10 Mg Tab.Rapdis) 5 mg TRANSLINGU BEDTIME [facility] Last Admin: 02/12/24 20:15 Dose: Not Given Prednisone (Prednisone 1 Mg Tablet) 1 mg PO DAILY [facility] Last Admin: 02/13/24 09:14 Dose: Not Given Prednisone (Prednisone 5 Mg Tablet) 5 mg PO DAILY [facility] Last Admin: 02/13/24 09:14 Dose: Not Given Risperidone (Risperidone 1 Mg Tablet) 1 mg PO TID PRN PRN Reason: psychosis/agitation Senna (Sennosides 8.6 Mg Tablet) 17.2 mg PO DAILY [facility] Last Admin: 02/13/24 09:14 Dose: Not Given Trazodone HCl (Trazodone Hcl 50 Mg Tablet) 50 mg PO BEDTIME MRX1 PRN PRN Reason: Insomnia Last Admin: 02/13/24 01:39 Dose: 50 mg Vitamin D (Cholecalciferol (Vitamin D3) 25 Mcg Tablet) 25 mcg PO DAILY [facility] Last Admin: 02/13/24 09:14 Dose: Not Given Allergies Allergies Allergy/AdvReac Type Severity Reaction Status Date / Time No Known Allergies Allergy Verified 12/25/23 17:04 Assessment & Plan Assessment & Plan (1) Schizoaffective disorder, depressive type: Status: Acute Code(s): F25.1 - Schizoaffective disorder, depressive type (2) Dementia: Status: Acute Code(s): F03.90 - Unspecified dementia, unspecified severity, without behavioral disturbance, psychotic disturbance, mood disturbance, and anxiety Plan The patient is an elderly female with a past history of schizoaffective disorder bipolar type, cognitive impairment and several medical comorbidities who was initially admitted for psychotic decompensation and needed to be transferred to Medicine due to sepsis. She was medically cleared transferring back into this facility for continuation of care. Plan 1. Gather more collateral information. 2. Continue with 15 minute checks. 3. Continue with risperidone and other psychotropics. 4. Start discharge planning. Since the patient has been chronically psychotic. 5. We will continue with the recommendations of the medical team for continuation of care. . Still on droplet precautions. 6. Over the weekend her clozapine was lowered in order to assure compliance but she has refused it. She had been inconsistent with compliance. 7. We are discontinue Clozaril and Risperdal and starting Zyprexa Zydis 5 mg p.o. q.h.s. on February 11. Reason for continued inpatient stay Substantial Risk for: inability to function, rapid decompensation and med/psych decompensation Time Spent With Patient Time: Total time managing care of this patient today __20__ minutes.
[2024-02-13 20:00] VITALS: BP 144/73; PULSE 61; RESP 18; TEMP 36.5; O2SAT 98
[2024-02-14 08:42] VITALS: BP 126/70; PULSE 64; RESP 16; TEMP 36.2; O2SAT 98
--- NOTE | 2024-02-14 13:22 | P.PNPSI_ITS ---
Subjective Subjective Date of Service: 02/14/24 Reason For Visit: dementia Subjective Notes: Conditional Voluntary Interim History: The nursing staff reported the patient had refused her medications suspicious delusional slept 6 hours. The social group worker is reporting that we started the process for guardianship. On interview the patient denies new symptoms internally preoccupied no changes in mental status. Mental Status Exam Mental Status Exam Patient Appearance: Appropriate Patient Orientation: Person and Situation Level of Consciousness: Awake and Appropriate Patient Behavior: Guarded Mood Description: Calm Affect Description: Constricted Patient Cognition Impaired: Yes Ability to Follow Directions: Poor Speech Pattern: Clear Hallucinations: Auditory Delusions: Paranoid Ideation and Ideas of Reference Thought Process: Distracted and Slowed Thinking Thought Content: positive for [place] and positive for Poverty of Content Judgement: Poor Diagnostics Vital Signs (24Hr): Vital Signs - 24 hr 02/13/24 20:00 02/14/24 08:42 Temperature 97.7 F 97.2 F Pulse Rate 61 64 Respiratory Rate 18 16 Blood Pressure 144/73 H 126/70 Pulse Oximetry 98 98 Oxygen Delivery Method Room Air Room Air BMI result Body Mass Index 22.5 Labs 02/01/24 08:26 Labs: Laboratory Results - last 48 hr 02/13/24 06:55 Absolute Neuts (auto) 1.9 L Medications Medications Current Medications Acetaminophen (Acetaminophen 325 Mg Tablet) 650 mg PO Q6H PRN PRN Reason: Headache/Pain Mild Scale (1-3) Al Hydroxide/Mg Hydroxide (Magnesium Hydrox/Alum Hydrox 30 Ml Oral.Susp) 30 ml PO Q6H PRN PRN Reason: Heartburn/Nausea Amlodipine Besylate (Amlodipine Besylate 5 Mg Tablet) 5 mg PO DAILY [facility]; Protocol Last Admin: 02/14/24 08:49 Dose: Not Given Atorvastatin Calcium (Atorvastatin Calcium 20 Mg Tablet) 20 mg PO DAILY [facility] Last Admin: 02/14/24 08:50 Dose: Not Given Benzocaine (Benzocaine 20 % Oral Gel 9 Gm Tube) 1 appl MUCOUS MEM QID PRN; Protocol PRN Reason: Pain, Mild (Pain Scale 1-3) Clozapine (Clozapine 100 Mg Tablet) 100 mg PO BEDTIME [facility] Last Admin: 02/11/24 20:12 Dose: Not Given Fludrocortisone Acetate (Fludrocortisone Acetate 0.1 Mg Tablet) 0.1 mg PO BID [facility] Last Admin: 02/14/24 08:50 Dose: Not Given Magnesium Hydroxide (Milk Of Magnesia 30 Ml Oral.Susp) 30 ml PO DAILY PRN PRN Reason: Constipation Olanzapine (Olanzapine Odt 10 Mg Tab.Rapdis) 10 mg TRANSLINGU BID PRN PRN Reason: agitation Last Admin: 02/11/24 01:19 Dose: 10 mg Olanzapine (Olanzapine Odt 10 Mg Tab.Rapdis) 5 mg TRANSLINGU BEDTIME [facility] Last Admin: 02/13/24 21:07 Dose: Not Given Prednisone (Prednisone 1 Mg Tablet) 1 mg PO DAILY [facility] Last Admin: 02/14/24 08:50 Dose: Not Given Prednisone (Prednisone 5 Mg Tablet) 5 mg PO DAILY [facility] Last Admin: 02/14/24 08:50 Dose: Not Given Risperidone (Risperidone 1 Mg Tablet) 1 mg PO TID PRN PRN Reason: psychosis/agitation Senna (Sennosides 8.6 Mg Tablet) 17.2 mg PO DAILY [facility] Last Admin: 02/14/24 08:50 Dose: Not Given Trazodone HCl (Trazodone Hcl 50 Mg Tablet) 50 mg PO BEDTIME MRX1 PRN PRN Reason: Insomnia Last Admin: 02/13/24 01:39 Dose: 50 mg Vitamin D (Cholecalciferol (Vitamin D3) 25 Mcg Tablet) 25 mcg PO DAILY [facility] Last Admin: 02/14/24 08:50 Dose: Not Given Allergies Allergies Allergy/AdvReac Type Severity Reaction Status Date / Time No Known Allergies Allergy Verified 12/25/23 17:04 Assessment & Plan Assessment & Plan (1) Schizoaffective disorder, depressive type: Status: Acute Code(s): F25.1 - Schizoaffective disorder, depressive type (2) Dementia: Status: Acute Code(s): F03.90 - Unspecified dementia, unspecified severity, without behavioral disturbance, psychotic disturbance, mood disturbance, and anxiety Plan The patient is an elderly female with a past history of schizoaffective disorder bipolar type, cognitive impairment and several medical comorbidities who was initially admitted for psychotic decompensation and needed to be transferred to Medicine due to sepsis. She was medically cleared transferring back into this facility for continuation of care. Plan 1. Gather more collateral information. 2. Continue with 15 minute checks. 3. Continue with risperidone and other psychotropics. 4. Start discharge planning. Since the patient has been chronically psychotic. 5. We will continue with the recommendations of the medical team for continuation of care. . Still on droplet precautions. 6. Over the weekend her clozapine was lowered in order to assure compliance but she has refused it. She had been inconsistent with compliance. 7. We are discontinue Clozaril and Risperdal and starting Zyprexa Zydis 5 mg p.o. q.h.s. on February 11. Reason for continued inpatient stay Substantial Risk for: inability to function, rapid decompensation and med/psych decompensation Time Spent With Patient Time: Total time managing care of this patient today __20__ minutes.
[2024-02-14 19:31] VITALS: BP 132/59; PULSE 70; RESP 18; TEMP 36.3; O2SAT 98
[2024-02-15 07:00] VITALS: BMI 22.8
[2024-02-15 08:00] VITALS: BP 135/63; PULSE 66; RESP 18; TEMP 36.1; O2SAT 98
--- NOTE | 2024-02-15 08:42 | HO.PSYCHPN ---
Subjective Subjective Date of Service: 02/15/24 Reason For Visit: dementia Subjective Notes: Conditional Voluntary Interim History: Pt had some difficulty sleeping. She continues to refuse medications including medical medications including for adrenal insufficiency. She appears more paranoid and suspicious. She reports medications causing side effects and she is upset because people continue to ask her to take medications. She is mostly in her room. Medication Compliance: No Side effects from medications: No Attending Groups: No Diagnostics Vital Signs (24Hr): Vital Signs - 24 hr 02/14/24 19:31 Temperature 97.3 F Pulse Rate 70 Respiratory Rate 18 Blood Pressure 132/59 L Pulse Oximetry 98 Oxygen Delivery Method Room Air BMI result Body Mass Index 22.5 Labs 02/01/24 08:26 Medications Medications Current Medications Acetaminophen (Acetaminophen 325 Mg Tablet) 650 mg PO Q6H PRN PRN Reason: Headache/Pain Mild Scale (1-3) Al Hydroxide/Mg Hydroxide (Magnesium Hydrox/Alum Hydrox 30 Ml Oral.Susp) 30 ml PO Q6H PRN PRN Reason: Heartburn/Nausea Amlodipine Besylate (Amlodipine Besylate 5 Mg Tablet) 5 mg PO DAILY [facility]; Protocol Last Admin: 02/14/24 08:49 Dose: Not Given Atorvastatin Calcium (Atorvastatin Calcium 20 Mg Tablet) 20 mg PO DAILY [facility] Last Admin: 02/14/24 08:50 Dose: Not Given Benzocaine (Benzocaine 20 % Oral Gel 9 Gm Tube) 1 appl MUCOUS MEM QID PRN; Protocol PRN Reason: Pain, Mild (Pain Scale 1-3) Clozapine (Clozapine 100 Mg Tablet) 100 mg PO BEDTIME [facility] Last Admin: 02/11/24 20:12 Dose: Not Given Fludrocortisone Acetate (Fludrocortisone Acetate 0.1 Mg Tablet) 0.1 mg PO BID [facility] Last Admin: 02/14/24 21:05 Dose: Not Given Magnesium Hydroxide (Milk Of Magnesia 30 Ml Oral.Susp) 30 ml PO DAILY PRN PRN Reason: Constipation Olanzapine (Olanzapine Odt 10 Mg Tab.Rapdis) 10 mg TRANSLINGU BID PRN PRN Reason: agitation Last Admin: 02/11/24 01:19 Dose: 10 mg Olanzapine (Olanzapine Odt 10 Mg Tab.Rapdis) 5 mg TRANSLINGU BEDTIME [facility] Last Admin: 02/14/24 21:05 Dose: Not Given Prednisone (Prednisone 1 Mg Tablet) 1 mg PO DAILY [facility] Last Admin: 02/14/24 08:50 Dose: Not Given Prednisone (Prednisone 5 Mg Tablet) 5 mg PO DAILY [facility] Last Admin: 02/14/24 08:50 Dose: Not Given Risperidone (Risperidone 1 Mg Tablet) 1 mg PO TID PRN PRN Reason: psychosis/agitation Senna (Sennosides 8.6 Mg Tablet) 17.2 mg PO DAILY [facility] Last Admin: 02/14/24 08:50 Dose: Not Given Trazodone HCl (Trazodone Hcl 50 Mg Tablet) 50 mg PO BEDTIME MRX1 PRN PRN Reason: Insomnia Last Admin: 02/13/24 01:39 Dose: 50 mg Vitamin D (Cholecalciferol (Vitamin D3) 25 Mcg Tablet) 25 mcg PO DAILY [facility] Last Admin: 02/14/24 08:50 Dose: Not Given Allergies Allergies Allergy/AdvReac Type Severity Reaction Status Date / Time No Known Allergies Allergy Verified 12/25/23 17:04 Assessment & Plan Assessment & Plan (1) Schizoaffective disorder, depressive type: Status: Acute Code(s): F25.1 - Schizoaffective disorder, depressive type (2) Dementia: Status: Acute Code(s): F03.90 - Unspecified dementia, unspecified severity, without behavioral disturbance, psychotic disturbance, mood disturbance, and anxiety Plan The patient is an elderly female with a past history of schizoaffective disorder bipolar type, cognitive impairment and several medical comorbidities who was initially admitted for psychotic decompensation and needed to be transferred to Medicine due to sepsis. She was medically cleared transferring back into this facility for continuation of care. Plan 02/14 pt continues to refuse medications, psych and medical for adrenal insufficiency. more paranoid and suspicious, guarded with staff. mostly in her room.pending guardianship and tobi's order Reason for continued inpatient stay Substantial Risk for: inability to function Time Spent With Patient Time: Total time managing care of this patient today ____ minutes.
[2024-02-15 10:05] VITALS: BP 135/63
[2024-02-15 20:00] VITALS: BP 134/91; PULSE 74; RESP 16; TEMP 36.3; O2SAT 99
[2024-02-16 08:31] VITALS: BP 127/60; PULSE 68; RESP 16; TEMP 36.8; O2SAT 96
--- NOTE | 2024-02-16 10:18 | PC.NURSE ---
June declined morning medications despite education and encouragement by this junior underwriter. Dr. Lowe notified.
--- NOTE | 2024-02-16 13:03 | HO.PSYCHPN ---
Subjective Subjective Date of Service: 02/16/24 Reason For Visit: dementia Healthcare Proxy: Yes Interim History: The nursing staff reported the patient had refused her medications, she had only 1 meal a day she slept 3 hours. On interview the patient denies new symptoms, waiting for legal paperwork. Mental Status Exam Mental Status Exam Patient Appearance: Appropriate Patient Orientation: Person and Situation Level of Consciousness: Awake and Appropriate Patient Behavior: Guarded and Passive Mood Description: Withdrawn Affect Description: Constricted Patient Cognition Impaired: Yes Ability to Follow Directions: Good Speech Pattern: Clear Hallucinations: Auditory Delusions: Paranoid Ideation and Ideas of Reference Thought Process: Distracted and Slowed Thinking Thought Content: positive for [place] and positive for Poverty of Content Judgement: Fair Diagnostics Vital Signs (24Hr): Vital Signs - 24 hr 02/15/24 20:00 02/16/24 08:31 Temperature 97.4 F 98.2 F Pulse Rate 74 68 Respiratory Rate 16 16 Blood Pressure 134/91 H 127/60 Pulse Oximetry 99 96 Oxygen Delivery Method Room Air Room Air BMI result Body Mass Index 22.8 Labs 02/01/24 08:26 Medications Medications Current Medications Acetaminophen (Acetaminophen 325 Mg Tablet) 650 mg PO Q6H PRN PRN Reason: Headache/Pain Mild Scale (1-3) Al Hydroxide/Mg Hydroxide (Magnesium Hydrox/Alum Hydrox 30 Ml Oral.Susp) 30 ml PO Q6H PRN PRN Reason: Heartburn/Nausea Amlodipine Besylate (Amlodipine Besylate 5 Mg Tablet) 5 mg PO DAILY [facility]; Protocol Last Admin: 02/16/24 10:19 Dose: Not Given Atorvastatin Calcium (Atorvastatin Calcium 20 Mg Tablet) 20 mg PO DAILY [facility] Last Admin: 02/16/24 10:20 Dose: Not Given Benzocaine (Benzocaine 20 % Oral Gel 9 Gm Tube) 1 appl MUCOUS MEM QID PRN; Protocol PRN Reason: Pain, Mild (Pain Scale 1-3) Clozapine (Clozapine 100 Mg Tablet) 100 mg PO BEDTIME [facility] Last Admin: 02/11/24 20:12 Dose: Not Given Fludrocortisone Acetate (Fludrocortisone Acetate 0.1 Mg Tablet) 0.1 mg PO BID [facility] Last Admin: 02/16/24 10:20 Dose: Not Given Magnesium Hydroxide (Milk Of Magnesia 30 Ml Oral.Susp) 30 ml PO DAILY PRN PRN Reason: Constipation Olanzapine (Olanzapine Odt 10 Mg Tab.Rapdis) 10 mg TRANSLINGU BID PRN PRN Reason: agitation Last Admin: 02/11/24 01:19 Dose: 10 mg Olanzapine (Olanzapine Odt 10 Mg Tab.Rapdis) 5 mg TRANSLINGU BEDTIME [facility] Last Admin: 02/15/24 20:16 Dose: Not Given Prednisone (Prednisone 1 Mg Tablet) 1 mg PO DAILY [facility] Last Admin: 02/16/24 10:20 Dose: Not Given Prednisone (Prednisone 5 Mg Tablet) 5 mg PO DAILY [facility] Last Admin: 02/16/24 10:20 Dose: Not Given Risperidone (Risperidone 1 Mg Tablet) 1 mg PO TID PRN PRN Reason: psychosis/agitation Senna (Sennosides 8.6 Mg Tablet) 17.2 mg PO DAILY [facility] Last Admin: 02/16/24 10:20 Dose: Not Given Trazodone HCl (Trazodone Hcl 50 Mg Tablet) 50 mg PO BEDTIME MRX1 PRN PRN Reason: Insomnia Last Admin: 02/13/24 01:39 Dose: 50 mg Vitamin D (Cholecalciferol (Vitamin D3) 25 Mcg Tablet) 25 mcg PO DAILY [facility] Last Admin: 02/16/24 10:20 Dose: Not Given Allergies Allergies Allergy/AdvReac Type Severity Reaction Status Date / Time No Known Allergies Allergy Verified 12/25/23 17:04 Assessment & Plan Assessment & Plan (1) Schizoaffective disorder, depressive type: Status: Acute Code(s): F25.1 - Schizoaffective disorder, depressive type (2) Dementia: Status: Acute Code(s): F03.90 - Unspecified dementia, unspecified severity, without behavioral disturbance, psychotic disturbance, mood disturbance, and anxiety Plan The patient is an elderly female with a past history of schizoaffective disorder bipolar type, cognitive impairment and several medical comorbidities who was initially admitted for psychotic decompensation and needed to be transferred to Medicine due to sepsis. She was medically cleared transferring back into this facility for continuation of care. Plan 1. The patient had been noncompliant with Risperdal we tried to change to Zyprexa since she is noncompliant. 2. Waiting for guardianship paperwork and treatment over objection court order. 3. Continue same treatment. Reason for continued inpatient stay Substantial Risk for: inability to function, rapid decompensation and med/psych decompensation Time Spent With Patient Time: Total time managing care of this patient today _20___ minutes.
[2024-02-16 20:00] VITALS: BP 135/61; PULSE 90; RESP 16; TEMP 36.3; O2SAT 97
[2024-02-17] MEDS: Acetaminophen 325 MG TABLET 650 MG PO ×2 (06:18→19:59)
[2024-02-17 08:38] VITALS: BP 145/67; PULSE 65; RESP 18; TEMP 36.3; O2SAT 98
--- NOTE | 2024-02-17 11:01 | HO.PSYCHPN ---
Subjective Subjective Date of Service: 02/17/24 Reason For Visit: dementia Subjective Notes: Conditional Voluntary Interim History: Pt slept about 6 hrs. She was visible in the morning. Continues to refuse medications stating that they make her feel worse. No SI/HI. internally preoccupied. Review of Systems Review of Systems unremarkable Yes all other systems are reviewed and are negative Mental Status Exam Mental Status Exam Patient Appearance: Appropriate Patient Orientation: Person and Situation Level of Consciousness: Awake and Appropriate Patient Behavior: Guarded and Passive Mood Description: Withdrawn Affect Description: Constricted Patient Cognition Impaired: Yes Ability to Follow Directions: Good Speech Pattern: Clear Diagnostics Vital Signs (24Hr): Vital Signs - 24 hr 02/16/24 20:00 02/17/24 08:38 Temperature 97.4 F 97.4 F Pulse Rate 90 65 Respiratory Rate 16 18 Blood Pressure 135/61 145/67 H Pulse Oximetry 97 98 Oxygen Delivery Method Room Air Room Air BMI result Body Mass Index 22.8 Labs 02/01/24 08:26 Medications Medications Current Medications Acetaminophen (Acetaminophen 325 Mg Tablet) 650 mg PO Q6H PRN PRN Reason: Headache/Pain Mild Scale (1-3) Last Admin: 02/17/24 06:18 Dose: 325 mg Al Hydroxide/Mg Hydroxide (Magnesium Hydrox/Alum Hydrox 30 Ml Oral.Susp) 30 ml PO Q6H PRN PRN Reason: Heartburn/Nausea Amlodipine Besylate (Amlodipine Besylate 5 Mg Tablet) 5 mg PO DAILY [facility]; Protocol Last Admin: 02/17/24 08:44 Dose: Not Given Atorvastatin Calcium (Atorvastatin Calcium 20 Mg Tablet) 20 mg PO DAILY [facility] Last Admin: 02/17/24 08:44 Dose: Not Given Benzocaine (Benzocaine 20 % Oral Gel 9 Gm Tube) 1 appl MUCOUS MEM QID PRN; Protocol PRN Reason: Pain, Mild (Pain Scale 1-3) Clozapine (Clozapine 100 Mg Tablet) 100 mg PO BEDTIME [facility] Last Admin: 02/11/24 20:12 Dose: Not Given Fludrocortisone Acetate (Fludrocortisone Acetate 0.1 Mg Tablet) 0.1 mg PO BID [facility] Last Admin: 02/17/24 08:44 Dose: Not Given Magnesium Hydroxide (Milk Of Magnesia 30 Ml Oral.Susp) 30 ml PO DAILY PRN PRN Reason: Constipation Olanzapine (Olanzapine Odt 10 Mg Tab.Rapdis) 10 mg TRANSLINGU BID PRN PRN Reason: agitation Last Admin: 02/11/24 01:19 Dose: 10 mg Olanzapine (Olanzapine Odt 10 Mg Tab.Rapdis) 5 mg TRANSLINGU BEDTIME [facility] Last Admin: 02/16/24 20:39 Dose: Not Given Prednisone (Prednisone 1 Mg Tablet) 1 mg PO DAILY [facility] Last Admin: 02/17/24 08:44 Dose: Not Given Prednisone (Prednisone 5 Mg Tablet) 5 mg PO DAILY [facility] Last Admin: 02/17/24 08:44 Dose: Not Given Risperidone (Risperidone 1 Mg Tablet) 1 mg PO TID PRN PRN Reason: psychosis/agitation Senna (Sennosides 8.6 Mg Tablet) 17.2 mg PO DAILY [facility] Last Admin: 02/17/24 08:45 Dose: Not Given Trazodone HCl (Trazodone Hcl 50 Mg Tablet) 50 mg PO BEDTIME MRX1 PRN PRN Reason: Insomnia Last Admin: 02/13/24 01:39 Dose: 50 mg Vitamin D (Cholecalciferol (Vitamin D3) 25 Mcg Tablet) 25 mcg PO DAILY [facility] Last Admin: 02/17/24 08:44 Dose: Not Given Allergies Allergies Allergy/AdvReac Type Severity Reaction Status Date / Time No Known Allergies Allergy Verified 12/25/23 17:04 Assessment & Plan Assessment & Plan (1) Schizoaffective disorder, depressive type: Status: Acute Code(s): F25.1 - Schizoaffective disorder, depressive type (2) Dementia: Status: Acute Code(s): F03.90 - Unspecified dementia, unspecified severity, without behavioral disturbance, psychotic disturbance, mood disturbance, and anxiety Plan The patient is an elderly female with a past history of schizoaffective disorder bipolar type, cognitive impairment and several medical comorbidities who was initially admitted for psychotic decompensation and needed to be transferred to Medicine due to sepsis. She was medically cleared transferring back into this facility for continuation of care. Plan 02/16 continue tx. refusing medications. Reason for continued inpatient stay Substantial Risk for: inability to function Time Spent With Patient Time: Total time managing care of this patient today ____ minutes.
--- NOTE | 2024-02-17 11:04 | PC.NURSE ---
June declined medication despite encouragement and education from this junior underwriter. Britney Nuñez NP notified.
[2024-02-17 20:00] VITALS: BP 118/63; PULSE 86; RESP 16; TEMP 36.3; O2SAT 97
[2024-02-18] MEDS: Cholecalciferol (Vitamin D3) 25 MCG TABLET PO (09:23)
[2024-02-18 09:26] VITALS: BP 109/61; PULSE 64; RESP 18; TEMP 35.7; O2SAT 98
--- NOTE | 2024-02-18 18:24 | P.PNPSI_ITS ---
Subjective Subjective Date of Service: 02/18/24 Reason For Visit: dementia Interim History: Pt slept about 6 hrs. She was visible in the morning. Continues to refuse medications stating that they make her feel worse. No SI/HI. internally preoccupied. Review of Systems Review of Systems unremarkable Yes all other systems are reviewed and are negative Mental Status Exam Mental Status Exam Patient Appearance: Appropriate Patient Orientation: Person and Situation Level of Consciousness: Awake and Appropriate Patient Behavior: Guarded and Passive Mood Description: Withdrawn Affect Description: Constricted Patient Cognition Impaired: Yes Ability to Follow Directions: Good Speech Pattern: Clear Diagnostics Vital Signs (24Hr): Vital Signs - 24 hr 02/17/24 20:00 02/18/24 09:26 Temperature 97.3 F 96.3 F L Pulse Rate 86 64 Respiratory Rate 16 18 Blood Pressure 118/63 109/61 Pulse Oximetry 97 98 Oxygen Delivery Method Room Air Room Air BMI result Body Mass Index 22.8 Labs 02/01/24 08:26 Medications Medications Current Medications Acetaminophen (Acetaminophen 325 Mg Tablet) 650 mg PO Q6H PRN PRN Reason: Headache/Pain Mild Scale (1-3) Last Admin: 02/17/24 19:59 Dose: 325 mg Al Hydroxide/Mg Hydroxide (Magnesium Hydrox/Alum Hydrox 30 Ml Oral.Susp) 30 ml PO Q6H PRN PRN Reason: Heartburn/Nausea Amlodipine Besylate (Amlodipine Besylate 5 Mg Tablet) 5 mg PO DAILY [facility]; Protocol Last Admin: 02/18/24 09:24 Dose: Not Given Atorvastatin Calcium (Atorvastatin Calcium 20 Mg Tablet) 20 mg PO DAILY [facility] Last Admin: 02/18/24 09:24 Dose: Not Given Benzocaine (Benzocaine 20 % Oral Gel 9 Gm Tube) 1 appl MUCOUS MEM QID PRN; Protocol PRN Reason: Pain, Mild (Pain Scale 1-3) Clozapine (Clozapine 100 Mg Tablet) 100 mg PO BEDTIME [facility] Last Admin: 02/11/24 20:12 Dose: Not Given Fludrocortisone Acetate (Fludrocortisone Acetate 0.1 Mg Tablet) 0.1 mg PO BID [facility] Last Admin: 02/18/24 09:24 Dose: Not Given Magnesium Hydroxide (Milk Of Magnesia 30 Ml Oral.Susp) 30 ml PO DAILY PRN PRN Reason: Constipation Olanzapine (Olanzapine Odt 10 Mg Tab.Rapdis) 10 mg TRANSLINGU BID PRN PRN Reason: agitation Last Admin: 02/11/24 01:19 Dose: 10 mg Olanzapine (Olanzapine Odt 10 Mg Tab.Rapdis) 5 mg TRANSLINGU BEDTIME [facility] Last Admin: 02/17/24 20:02 Dose: Not Given Prednisone (Prednisone 1 Mg Tablet) 1 mg PO DAILY [facility] Last Admin: 02/18/24 09:24 Dose: Not Given Prednisone (Prednisone 5 Mg Tablet) 5 mg PO DAILY [facility] Last Admin: 02/18/24 09:25 Dose: Not Given Risperidone (Risperidone 1 Mg Tablet) 1 mg PO TID PRN PRN Reason: psychosis/agitation Senna (Sennosides 8.6 Mg Tablet) 17.2 mg PO DAILY [facility] Last Admin: 02/18/24 09:25 Dose: Not Given Trazodone HCl (Trazodone Hcl 50 Mg Tablet) 50 mg PO BEDTIME MRX1 PRN PRN Reason: Insomnia Last Admin: 02/13/24 01:39 Dose: 50 mg Vitamin D (Cholecalciferol (Vitamin D3) 25 Mcg Tablet) 25 mcg PO DAILY [facility] Last Admin: 02/18/24 09:23 Dose: 25 mcg Allergies Allergies Allergy/AdvReac Type Severity Reaction Status Date / Time No Known Allergies Allergy Verified 12/25/23 17:04 Assessment & Plan Assessment & Plan (1) Schizoaffective disorder, depressive type: Status: Acute Code(s): F25.1 - Schizoaffective disorder, depressive type (2) Dementia: Status: Acute Code(s): F03.90 - Unspecified dementia, unspecified severity, without behavioral disturbance, psychotic disturbance, mood disturbance, and anxiety Plan The patient is an elderly female with a past history of schizoaffective disorder bipolar type, cognitive impairment and several medical comorbidities who was initially admitted for psychotic decompensation and needed to be transferred to Medicine due to sepsis. She was medically cleared transferring back into this facility for continuation of care. Plan 02/16 continue tx. refusing medications. 02/17 continues to refuse medications. Reason for continued inpatient stay Substantial Risk for: inability to function Time Spent With Patient Time: Total time managing care of this patient today ____ minutes.
--- NOTE | 2024-02-18 19:00 | PC.NURSE ---
Patient complaining of moderate to severe right foot pain but only wanted Tylenol even though this advertising copy writer offered her Motrin several times. Her foot was seen by Britney Nuñez NP who feels that the right foot swelling is just edema and it does not need another X Ray. patient encouraged to elevate her right leg and she is refusing to wear her TEDS.
[2024-02-18 20:00] VITALS: BP 128/73; PULSE 68; RESP 18; TEMP 36.7; O2SAT 98
[2024-02-18] MEDS: Fludrocortisone Acetate 0.1 MG TABLET PO (20:29)
[2024-02-18] MEDS: OLANZapine ODT 10 MG TAB.RAPDIS 5 MG TRANSLINGU (20:30)
[2024-02-19] MEDS: Acetaminophen 325 MG TABLET 650 MG PO (00:02)
[2024-02-19] MEDS: traZODone HCL 50 MG TABLET PO ×2 (00:03→20:20)
[2024-02-19 07:55] VITALS: BP 118/62; PULSE 54; RESP 18; TEMP 36.4; O2SAT 99
[2024-02-19] MEDS: Cholecalciferol (Vitamin D3) 25 MCG TABLET PO (08:13)
--- NOTE | 2024-02-19 14:25 | HO.PSYCHPN ---
Subjective Subjective Date of Service: 02/19/24 Reason For Visit: dementia Interim History: The nursing staff reported the patient has refused medications she states most of the time in her bed and she slept 6 hours. She is waiting for guardianship and role years. On interview the patient denies new symptoms internally preoccupied but redirectable. Mental Status Exam Mental Status Exam Patient Appearance: Appropriate Patient Orientation: Person and Situation Level of Consciousness: Awake Patient Behavior: Guarded and Passive Mood Description: Withdrawn Affect Description: Constricted Patient Cognition Impaired: Yes Ability to Follow Directions: Good Speech Pattern: Clear Hallucinations: None Delusions: Ideas of Reference Thought Process: Illogical Thought Content: positive for Circumstantial Judgement: Poor Diagnostics Vital Signs (24Hr): Vital Signs - 24 hr 02/18/24 20:00 02/19/24 07:55 Temperature 98.1 F 97.5 F Pulse Rate 68 54 Respiratory Rate 18 18 Blood Pressure 128/73 118/62 Pulse Oximetry 98 99 Oxygen Delivery Method Room Air Room Air BMI result Body Mass Index 22.8 Labs 02/01/24 08:26 Medications Medications Current Medications Acetaminophen (Acetaminophen 325 Mg Tablet) 650 mg PO Q6H PRN PRN Reason: Headache/Pain Mild Scale (1-3) Last Admin: 02/19/24 00:02 Dose: 650 mg Al Hydroxide/Mg Hydroxide (Magnesium Hydrox/Alum Hydrox 30 Ml Oral.Susp) 30 ml PO Q6H PRN PRN Reason: Heartburn/Nausea Amlodipine Besylate (Amlodipine Besylate 5 Mg Tablet) 5 mg PO DAILY [facility]; Protocol Last Admin: 02/19/24 08:15 Dose: Not Given Atorvastatin Calcium (Atorvastatin Calcium 20 Mg Tablet) 20 mg PO DAILY [facility] Last Admin: 02/19/24 08:16 Dose: Not Given Benzocaine (Benzocaine 20 % Oral Gel 9 Gm Tube) 1 appl MUCOUS MEM QID PRN; Protocol PRN Reason: Pain, Mild (Pain Scale 1-3) Clozapine (Clozapine 100 Mg Tablet) 100 mg PO BEDTIME [facility] Last Admin: 02/11/24 20:12 Dose: Not Given Fludrocortisone Acetate (Fludrocortisone Acetate 0.1 Mg Tablet) 0.1 mg PO BID [facility] Last Admin: 02/19/24 08:15 Dose: Not Given Magnesium Hydroxide (Milk Of Magnesia 30 Ml Oral.Susp) 30 ml PO DAILY PRN PRN Reason: Constipation Olanzapine (Olanzapine Odt 10 Mg Tab.Rapdis) 10 mg TRANSLINGU BID PRN PRN Reason: agitation Last Admin: 02/11/24 01:19 Dose: 10 mg Olanzapine (Olanzapine Odt 10 Mg Tab.Rapdis) 5 mg TRANSLINGU BEDTIME [facility] Last Admin: 02/18/24 20:30 Dose: 5 mg Prednisone (Prednisone 1 Mg Tablet) 1 mg PO DAILY [facility] Last Admin: 02/19/24 08:15 Dose: Not Given Prednisone (Prednisone 5 Mg Tablet) 5 mg PO DAILY [facility] Last Admin: 02/19/24 08:15 Dose: Not Given Risperidone (Risperidone 1 Mg Tablet) 1 mg PO TID PRN PRN Reason: psychosis/agitation Senna (Sennosides 8.6 Mg Tablet) 17.2 mg PO DAILY [facility] Last Admin: 02/19/24 08:15 Dose: Not Given Trazodone HCl (Trazodone Hcl 50 Mg Tablet) 50 mg PO BEDTIME MRX1 PRN PRN Reason: Insomnia Last Admin: 02/19/24 00:03 Dose: 50 mg Vitamin D (Cholecalciferol (Vitamin D3) 25 Mcg Tablet) 25 mcg PO DAILY [facility] Last Admin: 02/19/24 08:13 Dose: 25 mcg Allergies Allergies Allergy/AdvReac Type Severity Reaction Status Date / Time No Known Allergies Allergy Verified 12/25/23 17:04 Assessment & Plan Assessment & Plan (1) Schizoaffective disorder, depressive type: Status: Acute Code(s): F25.1 - Schizoaffective disorder, depressive type (2) Dementia: Status: Acute Code(s): F03.90 - Unspecified dementia, unspecified severity, without behavioral disturbance, psychotic disturbance, mood disturbance, and anxiety Plan The patient is an elderly female with a past history of schizoaffective disorder bipolar type, cognitive impairment and several medical comorbidities who was initially admitted for psychotic decompensation and needed to be transferred to Medicine due to sepsis. She was medically cleared transferring back into this facility for continuation of care. Plan 02/16 continue tx. refusing medications. 02/17 continues to refuse medications./ 02/18 continue to refused medications Reason for continued inpatient stay Substantial Risk for: inability to function, rapid decompensation and med/psych decompensation Time Spent With Patient Time: Total time managing care of this patient today _20___ minutes.
[2024-02-19 20:00] VITALS: BP 118/58; PULSE 63; RESP 18; TEMP 36.7; O2SAT 97
[2024-02-19] MEDS: Fludrocortisone Acetate 0.1 MG TABLET PO (20:20)
[2024-02-19] MEDS: risperiDONE 1 MG TABLET PO (20:20)
[2024-02-19] MEDS: OLANZapine ODT 10 MG TAB.RAPDIS 5 MG TRANSLINGU (20:20)
[2024-02-20] MEDS: traZODone HCL 50 MG TABLET PO (01:26)
[2024-02-20 07:41] VITALS: BP 144/75; PULSE 62; RESP 18; TEMP 36.8; O2SAT 98
--- NOTE | 2024-02-20 12:51 | HO.PSYCHPN ---
Subjective Subjective Date of Service: 02/20/24 Reason For Visit: dementia Subjective Notes: Conditional Voluntary Interim History: The nursing staff reported no changes in her mental status, she had been refusing medications she slept 4 hours. On interview the patient denies new symptoms chronically paranoid but redirectable. Waiting for guardianship and treatment over objection order. Mental Status Exam Mental Status Exam Patient Appearance: Appropriate Patient Orientation: Person and Situation Level of Consciousness: Awake Patient Behavior: Guarded and Passive Mood Description: Withdrawn Affect Description: Constricted Patient Cognition Impaired: Yes Ability to Follow Directions: Good Speech Pattern: Clear Hallucinations: None Delusions: Paranoid Ideation and Ideas of Reference Thought Process: Distracted and Slowed Thinking Thought Content: positive for [place] and positive for Poverty of Content Judgement: Poor Diagnostics Vital Signs (24Hr): Vital Signs - 24 hr 02/19/24 20:00 02/20/24 07:41 Temperature 98.1 F 98.2 F Pulse Rate 63 62 Respiratory Rate 18 18 Blood Pressure 118/58 L 144/75 H Pulse Oximetry 97 98 Oxygen Delivery Method Room Air Room Air BMI result Body Mass Index 22.8 Labs 02/01/24 08:26 Medications Medications Current Medications Acetaminophen (Acetaminophen 325 Mg Tablet) 650 mg PO Q6H PRN PRN Reason: Headache/Pain Mild Scale (1-3) Last Admin: 02/19/24 00:02 Dose: 650 mg Al Hydroxide/Mg Hydroxide (Magnesium Hydrox/Alum Hydrox 30 Ml Oral.Susp) 30 ml PO Q6H PRN PRN Reason: Heartburn/Nausea Amlodipine Besylate (Amlodipine Besylate 5 Mg Tablet) 5 mg PO DAILY [facility]; Protocol Last Admin: 02/20/24 09:24 Dose: Not Given Atorvastatin Calcium (Atorvastatin Calcium 20 Mg Tablet) 20 mg PO DAILY [facility] Last Admin: 02/20/24 09:26 Dose: Not Given Benzocaine (Benzocaine 20 % Oral Gel 9 Gm Tube) 1 appl MUCOUS MEM QID PRN; Protocol PRN Reason: Pain, Mild (Pain Scale 1-3) Clozapine (Clozapine 100 Mg Tablet) 100 mg PO BEDTIME [facility] Last Admin: 02/11/24 20:12 Dose: Not Given Fludrocortisone Acetate (Fludrocortisone Acetate 0.1 Mg Tablet) 0.1 mg PO BID [facility] Last Admin: 02/20/24 09:26 Dose: Not Given Magnesium Hydroxide (Milk Of Magnesia 30 Ml Oral.Susp) 30 ml PO DAILY PRN PRN Reason: Constipation Olanzapine (Olanzapine Odt 10 Mg Tab.Rapdis) 10 mg TRANSLINGU BID PRN PRN Reason: agitation Last Admin: 02/11/24 01:19 Dose: 10 mg Olanzapine (Olanzapine Odt 10 Mg Tab.Rapdis) 5 mg TRANSLINGU BEDTIME [facility] Last Admin: 02/19/24 20:20 Dose: 5 mg Prednisone (Prednisone 1 Mg Tablet) 1 mg PO DAILY [facility] Last Admin: 02/20/24 09:26 Dose: Not Given Prednisone (Prednisone 5 Mg Tablet) 5 mg PO DAILY [facility] Last Admin: 02/20/24 09:26 Dose: Not Given Risperidone (Risperidone 1 Mg Tablet) 1 mg PO TID PRN PRN Reason: psychosis/agitation Last Admin: 02/19/24 20:20 Dose: 1 mg Senna (Sennosides 8.6 Mg Tablet) 17.2 mg PO DAILY [facility] Last Admin: 02/20/24 09:26 Dose: Not Given Trazodone HCl (Trazodone Hcl 50 Mg Tablet) 50 mg PO BEDTIME MRX1 PRN PRN Reason: Insomnia Last Admin: 02/20/24 01:26 Dose: 50 mg Vitamin D (Cholecalciferol (Vitamin D3) 25 Mcg Tablet) 25 mcg PO DAILY [facility] Last Admin: 02/20/24 09:26 Dose: Not Given Allergies Allergies Allergy/AdvReac Type Severity Reaction Status Date / Time No Known Allergies Allergy Verified 12/25/23 17:04 Assessment & Plan Assessment & Plan (1) Schizoaffective disorder, depressive type: Status: Acute Code(s): F25.1 - Schizoaffective disorder, depressive type (2) Dementia: Status: Acute Code(s): F03.90 - Unspecified dementia, unspecified severity, without behavioral disturbance, psychotic disturbance, mood disturbance, and anxiety Plan The patient is an elderly female with a past history of schizoaffective disorder bipolar type, cognitive impairment and several medical comorbidities who was initially admitted for psychotic decompensation and needed to be transferred to Medicine due to sepsis. She was medically cleared transferring back into this facility for continuation of care. Plan 1. The patient had been refusing consistently medications. 2. Waiting for guardianship and court order treatment over objection. 3. Reassessment with results. Reason for continued inpatient stay Substantial Risk for: inability to function, rapid decompensation and med/psych decompensation Time Spent With Patient Time: Total time managing care of this patient today _20___ minutes.
[2024-02-20 19:37] VITALS: BP 109/51; PULSE 79; RESP 16; TEMP 36.5; O2SAT 98
[2024-02-21 08:37] VITALS: BP 122/57; PULSE 77; RESP 18; TEMP 36.1; O2SAT 99
[2024-02-21 08:55] LABS: Neut%MD 52.5 %; Neutrophils Absolute Auto 4.8 x10*3/uL (2.0-8.3); WBCANC 9.2 X10*3/uL
--- NOTE | 2024-02-21 09:01 | P.PNPSI_ITS ---
Subjective Subjective Date of Service: 02/21/24 Reason For Visit: dementia Interim History: Pt seen and discussed with the team. Allowed labs Refusing medications, stopped Clozapine Refusing milieu activities Medication Compliance: No Review of Systems Acute medical concerns: No Medical Review of Systems: unchanged Review of Systems Review of Systems Yes Unobtainable due to mental status Mental Status Exam Mental Status Exam Patient Appearance: Appropriate Patient Orientation: Person and Situation Level of Consciousness: Awake Patient Behavior: Guarded and Passive Mood Description: Withdrawn Affect Description: Constricted Patient Cognition Impaired: Yes Ability to Follow Directions: Good Speech Pattern: Clear Hallucinations: None Delusions: Paranoid Ideation and Ideas of Reference Thought Process: Distracted and Slowed Thinking Thought Content: positive for [place] and positive for Poverty of Content Judgement: Poor Diagnostics Vital Signs (24Hr): Vital Signs - 24 hr 02/20/24 19:37 02/21/24 08:37 Temperature 97.7 F 96.9 F Pulse Rate 79 77 Respiratory Rate 16 18 Blood Pressure 109/51 L 122/57 L Pulse Oximetry 98 99 Oxygen Delivery Method Room Air Room Air BMI result Body Mass Index 22.8 Labs 02/01/24 08:26 Labs: Laboratory Results - last 48 hr 02/21/24 08:19 Absolute Neuts (auto) 4.8 Medications Medications Current Medications Acetaminophen (Acetaminophen 325 Mg Tablet) 650 mg PO Q6H PRN PRN Reason: Headache/Pain Mild Scale (1-3) Last Admin: 02/19/24 00:02 Dose: 650 mg Al Hydroxide/Mg Hydroxide (Magnesium Hydrox/Alum Hydrox 30 Ml Oral.Susp) 30 ml PO Q6H PRN PRN Reason: Heartburn/Nausea Amlodipine Besylate (Amlodipine Besylate 5 Mg Tablet) 5 mg PO DAILY [facility]; Protocol Last Admin: 02/21/24 09:00 Dose: Not Given Atorvastatin Calcium (Atorvastatin Calcium 20 Mg Tablet) 20 mg PO DAILY [facility] Last Admin: 02/21/24 09:00 Dose: Not Given Benzocaine (Benzocaine 20 % Oral Gel 9 Gm Tube) 1 appl MUCOUS MEM QID PRN; Protocol PRN Reason: Pain, Mild (Pain Scale 1-3) Clozapine (Clozapine 100 Mg Tablet) 100 mg PO BEDTIME [facility] Last Admin: 02/11/24 20:12 Dose: Not Given Fludrocortisone Acetate (Fludrocortisone Acetate 0.1 Mg Tablet) 0.1 mg PO BID [facility] Last Admin: 02/21/24 09:00 Dose: Not Given Magnesium Hydroxide (Milk Of Magnesia 30 Ml Oral.Susp) 30 ml PO DAILY PRN PRN Reason: Constipation Olanzapine (Olanzapine Odt 10 Mg Tab.Rapdis) 10 mg TRANSLINGU BID PRN PRN Reason: agitation Last Admin: 02/11/24 01:19 Dose: 10 mg Olanzapine (Olanzapine Odt 10 Mg Tab.Rapdis) 5 mg TRANSLINGU BEDTIME [facility] Last Admin: 02/20/24 21:55 Dose: Not Given Prednisone (Prednisone 1 Mg Tablet) 1 mg PO DAILY [facility] Last Admin: 02/21/24 09:00 Dose: Not Given Prednisone (Prednisone 5 Mg Tablet) 5 mg PO DAILY [facility] Last Admin: 02/21/24 09:00 Dose: Not Given Risperidone (Risperidone 1 Mg Tablet) 1 mg PO TID PRN PRN Reason: psychosis/agitation Last Admin: 02/19/24 20:20 Dose: 1 mg Senna (Sennosides 8.6 Mg Tablet) 17.2 mg PO DAILY [facility] Last Admin: 02/21/24 09:00 Dose: Not Given Trazodone HCl (Trazodone Hcl 50 Mg Tablet) 50 mg PO BEDTIME MRX1 PRN PRN Reason: Insomnia Last Admin: 02/20/24 01:26 Dose: 50 mg Vitamin D (Cholecalciferol (Vitamin D3) 25 Mcg Tablet) 25 mcg PO DAILY [facility] Last Admin: 02/21/24 09:00 Dose: Not Given Allergies Allergies Allergy/AdvReac Type Severity Reaction Status Date / Time No Known Allergies Allergy Verified 12/25/23 17:04 Assessment & Plan Assessment & Plan (1) Schizoaffective disorder, depressive type: Status: Acute Code(s): F25.1 - Schizoaffective disorder, depressive type (2) Dementia: Status: Acute Code(s): F03.90 - Unspecified dementia, unspecified severity, without behavioral disturbance, psychotic disturbance, mood disturbance, and anxiety Plan The patient is an elderly female with a past history of schizoaffective disorder bipolar type, cognitive impairment and several medical comorbidities who was initially admitted for psychotic decompensation and needed to be transferred to Medicine due to sepsis. She was medically cleared transferring back into this facility for continuation of care. 02/21/24: Continue to encourage treatment. Plan 1. The patient had been refusing consistently medications. 2. Waiting for guardianship and court order treatment over objection. 3. Reassessment with results. Reason for continued inpatient stay Substantial Risk for: rapid decompensation Time Spent With Patient Time: Total time managing care of this patient today ____ minutes.
[2024-02-21 20:00] VITALS: BP 124/63; PULSE 67; RESP 16; TEMP 36.9; O2SAT 97
[2024-02-21] MEDS: traZODone HCL 50 MG TABLET PO ×2 (20:58→23:35)
[2024-02-21] MEDS: Acetaminophen 325 MG TABLET 650 MG PO (23:34)
[2024-02-22 09:05] VITALS: BP 130/77; PULSE 68; RESP 18; TEMP 36.4; O2SAT 98
[2024-02-22] MEDS: Cholecalciferol (Vitamin D3) 25 MCG TABLET PO (10:34)
[2024-02-22] MEDS: Atorvastatin Calcium 20 MG TABLET PO (10:34)
[2024-02-22] MEDS: risperiDONE 1 MG TABLET PO (10:35)
[2024-02-22] MEDS: Fludrocortisone Acetate 0.1 MG TABLET PO ×2 (10:35→21:13)
--- NOTE | 2024-02-22 14:24 | HO.PSYCHPN ---
Subjective Subjective Date of Service: 02/22/24 Reason For Visit: dementia Subjective Notes: Conditional Voluntary Interim History: The nursing staff reported the patient has refused her medications she allowed blood work. On interview the patient reports that she is feeling tired. No new symptoms. Mental Status Exam Mental Status Exam Patient Appearance: Appropriate Patient Orientation: Person and Situation Level of Consciousness: Awake and Appropriate Patient Behavior: Guarded and Passive Mood Description: Withdrawn Affect Description: Constricted Patient Cognition Impaired: Yes Ability to Follow Directions: Good Speech Pattern: Clear Hallucinations: None Delusions: Paranoid Ideation and Ideas of Reference Thought Process: Distracted and Slowed Thinking Thought Content: positive for [place] and positive for Poverty of Content Judgement: Fair Diagnostics Vital Signs (24Hr): Vital Signs - 24 hr 02/21/24 20:00 02/22/24 09:05 Temperature 98.5 F 97.5 F Pulse Rate 67 68 Respiratory Rate 16 18 Blood Pressure 124/63 130/77 Pulse Oximetry 97 98 Oxygen Delivery Method Room Air Room Air BMI result Body Mass Index 22.8 Labs 02/01/24 08:26 Labs: Laboratory Results - last 48 hr 02/21/24 08:19 Absolute Neuts (auto) 4.8 Medications Medications Current Medications Acetaminophen (Acetaminophen 325 Mg Tablet) 650 mg PO Q6H PRN PRN Reason: Headache/Pain Mild Scale (1-3) Last Admin: 02/21/24 23:34 Dose: 650 mg Al Hydroxide/Mg Hydroxide (Magnesium Hydrox/Alum Hydrox 30 Ml Oral.Susp) 30 ml PO Q6H PRN PRN Reason: Heartburn/Nausea Amlodipine Besylate (Amlodipine Besylate 5 Mg Tablet) 5 mg PO DAILY [facility]; Protocol Last Admin: 02/22/24 09:45 Dose: Not Given Atorvastatin Calcium (Atorvastatin Calcium 20 Mg Tablet) 20 mg PO DAILY [facility] Last Admin: 02/22/24 10:34 Dose: 20 mg Benzocaine (Benzocaine 20 % Oral Gel 9 Gm Tube) 1 appl MUCOUS MEM QID PRN; Protocol PRN Reason: Pain, Mild (Pain Scale 1-3) Clozapine (Clozapine 100 Mg Tablet) 100 mg PO BEDTIME [facility] Last Admin: 02/11/24 20:12 Dose: Not Given Fludrocortisone Acetate (Fludrocortisone Acetate 0.1 Mg Tablet) 0.1 mg PO BID [facility] Last Admin: 02/22/24 10:35 Dose: 0.1 mg Magnesium Hydroxide (Milk Of Magnesia 30 Ml Oral.Susp) 30 ml PO DAILY PRN PRN Reason: Constipation Olanzapine (Olanzapine Odt 10 Mg Tab.Rapdis) 10 mg TRANSLINGU BID PRN PRN Reason: agitation Last Admin: 02/11/24 01:19 Dose: 10 mg Olanzapine (Olanzapine Odt 10 Mg Tab.Rapdis) 5 mg TRANSLINGU BEDTIME [facility] Last Admin: 02/21/24 21:01 Dose: Not Given Prednisone (Prednisone 1 Mg Tablet) 1 mg PO DAILY [facility] Last Admin: 02/22/24 09:49 Dose: Not Given Prednisone (Prednisone 5 Mg Tablet) 5 mg PO DAILY [facility] Last Admin: 02/22/24 09:49 Dose: Not Given Risperidone (Risperidone 1 Mg Tablet) 1 mg PO TID PRN PRN Reason: psychosis/agitation Last Admin: 02/22/24 10:35 Dose: 1 mg Senna (Sennosides 8.6 Mg Tablet) 17.2 mg PO DAILY [facility] Last Admin: 02/22/24 09:49 Dose: Not Given Trazodone HCl (Trazodone Hcl 50 Mg Tablet) 50 mg PO BEDTIME MRX1 PRN PRN Reason: Insomnia Last Admin: 02/21/24 23:35 Dose: 50 mg Vitamin D (Cholecalciferol (Vitamin D3) 25 Mcg Tablet) 25 mcg PO DAILY [facility] Last Admin: 02/22/24 10:34 Dose: 25 mcg Allergies Allergies Allergy/AdvReac Type Severity Reaction Status Date / Time No Known Allergies Allergy Verified 12/25/23 17:04 Assessment & Plan Assessment & Plan (1) Schizoaffective disorder, depressive type: Status: Acute Code(s): F25.1 - Schizoaffective disorder, depressive type (2) Dementia: Status: Acute Code(s): F03.90 - Unspecified dementia, unspecified severity, without behavioral disturbance, psychotic disturbance, mood disturbance, and anxiety Plan The patient is an elderly female with a past history of schizoaffective disorder bipolar type, cognitive impairment and several medical comorbidities who was initially admitted for psychotic decompensation and needed to be transferred to Medicine due to sepsis. She was medically cleared transferring back into this facility for continuation of care. 02/21/24: Continue to encourage treatment. Plan 1. The patient had been refusing consistently medications. 2. Waiting for guardianship and court order treatment over objection. 3. Reassessment with results. Reason for continued inpatient stay Substantial Risk for: inability to function, rapid decompensation and med/psych decompensation Time Spent With Patient Time: Total time managing care of this patient today ___20_ minutes.
[2024-02-22] MEDS: OLANZapine ODT 10 MG TAB.RAPDIS TRANSLINGU (15:24)
[2024-02-22 20:00] VITALS: BP 115/70; PULSE 72; RESP 16; TEMP 35.7; O2SAT 98
[2024-02-22] MEDS: OLANZapine ODT 10 MG TAB.RAPDIS 5 MG TRANSLINGU (21:13)
[2024-02-22] MEDS: traZODone HCL 50 MG TABLET PO (21:14)
[2024-02-23] MEDS: traZODone HCL 50 MG TABLET PO ×2 (02:24→20:42)
[2024-02-23 08:00] VITALS: RESP 18
--- NOTE | 2024-02-23 09:09 | HO.PSYCHPN ---
Subjective Subjective Date of Service: 02/23/24 Reason For Visit: dementia Subjective Notes: Conditional Voluntary Interim History: Pt slept through the night. She presents as guarded and not fully forthcoming. Mostly in her room, visible at times for meals. No insight into need for tx. refusing most medical medications. no behavioral concerns. Review of Systems Review of Systems unremarkable Yes all other systems are reviewed and are negative and Unobtainable due to mental status Mental Status Exam Mental Status Exam Patient Appearance: Appropriate Patient Orientation: Person and Situation Level of Consciousness: Awake and Appropriate Patient Behavior: Guarded and Passive Mood Description: Withdrawn Affect Description: Constricted Patient Cognition Impaired: Yes Ability to Follow Directions: Good Speech Pattern: Clear Diagnostics Vital Signs (24Hr): Vital Signs - 24 hr 02/22/24 20:00 Temperature 96.3 F L Pulse Rate 72 Respiratory Rate 16 Blood Pressure 115/70 Pulse Oximetry 98 Oxygen Delivery Method Room Air BMI result Body Mass Index 22.8 Labs 02/01/24 08:26 Medications Medications Current Medications Acetaminophen (Acetaminophen 325 Mg Tablet) 650 mg PO Q6H PRN PRN Reason: Headache/Pain Mild Scale (1-3) Last Admin: 02/21/24 23:34 Dose: 650 mg Al Hydroxide/Mg Hydroxide (Magnesium Hydrox/Alum Hydrox 30 Ml Oral.Susp) 30 ml PO Q6H PRN PRN Reason: Heartburn/Nausea Amlodipine Besylate (Amlodipine Besylate 5 Mg Tablet) 5 mg PO DAILY [facility]; Protocol Last Admin: 02/23/24 08:31 Dose: Not Given Atorvastatin Calcium (Atorvastatin Calcium 20 Mg Tablet) 20 mg PO DAILY [facility] Last Admin: 02/23/24 08:31 Dose: Not Given Benzocaine (Benzocaine 20 % Oral Gel 9 Gm Tube) 1 appl MUCOUS MEM QID PRN; Protocol PRN Reason: Pain, Mild (Pain Scale 1-3) Clozapine (Clozapine 100 Mg Tablet) 100 mg PO BEDTIME [facility] Last Admin: 02/11/24 20:12 Dose: Not Given Fludrocortisone Acetate (Fludrocortisone Acetate 0.1 Mg Tablet) 0.1 mg PO BID [facility] Last Admin: 02/23/24 08:32 Dose: Not Given Magnesium Hydroxide (Milk Of Magnesia 30 Ml Oral.Susp) 30 ml PO DAILY PRN PRN Reason: Constipation Olanzapine (Olanzapine Odt 10 Mg Tab.Rapdis) 10 mg TRANSLINGU BID PRN PRN Reason: agitation Last Admin: 02/22/24 15:24 Dose: 10 mg Olanzapine (Olanzapine Odt 10 Mg Tab.Rapdis) 5 mg TRANSLINGU BEDTIME [facility] Last Admin: 02/22/24 21:13 Dose: 5 mg Prednisone (Prednisone 1 Mg Tablet) 1 mg PO DAILY [facility] Last Admin: 02/23/24 08:32 Dose: Not Given Prednisone (Prednisone 5 Mg Tablet) 5 mg PO DAILY [facility] Last Admin: 02/23/24 08:32 Dose: Not Given Risperidone (Risperidone 1 Mg Tablet) 1 mg PO TID PRN PRN Reason: psychosis/agitation Last Admin: 02/22/24 10:35 Dose: 1 mg Senna (Sennosides 8.6 Mg Tablet) 17.2 mg PO DAILY [facility] Last Admin: 02/23/24 08:32 Dose: Not Given Trazodone HCl (Trazodone Hcl 50 Mg Tablet) 50 mg PO BEDTIME MRX1 PRN PRN Reason: Insomnia Last Admin: 02/23/24 02:24 Dose: 50 mg Vitamin D (Cholecalciferol (Vitamin D3) 25 Mcg Tablet) 25 mcg PO DAILY [facility] Last Admin: 02/23/24 08:31 Dose: Not Given Allergies Allergies Allergy/AdvReac Type Severity Reaction Status Date / Time No Known Allergies Allergy Verified 12/25/23 17:04 Assessment & Plan Assessment & Plan (1) Schizoaffective disorder, depressive type: Status: Acute Code(s): F25.1 - Schizoaffective disorder, depressive type (2) Dementia: Status: Acute Code(s): F03.90 - Unspecified dementia, unspecified severity, without behavioral disturbance, psychotic disturbance, mood disturbance, and anxiety Plan The patient is an elderly female with a past history of schizoaffective disorder bipolar type, cognitive impairment and several medical comorbidities who was initially admitted for psychotic decompensation and needed to be transferred to Medicine due to sepsis. She was medically cleared transferring back into this facility for continuation of care. 02/21/24: Continue to encourage treatment. 02/22 continue tx. Reason for continued inpatient stay Substantial Risk for: inability to function Time Spent With Patient Time: Total time managing care of this patient today ____ minutes.
[2024-02-23 20:00] VITALS: BP 129/71; PULSE 67; RESP 16; TEMP 36.6; O2SAT 95
[2024-02-23] MEDS: risperiDONE 1 MG TABLET PO (20:39)
[2024-02-23] MEDS: Fludrocortisone Acetate 0.1 MG TABLET PO (20:39)
[2024-02-23] MEDS: OLANZapine ODT 10 MG TAB.RAPDIS TRANSLINGU (20:39)
[2024-02-23] MEDS: OLANZapine ODT 10 MG TAB.RAPDIS 5 MG TRANSLINGU (20:39)
[2024-02-24] MEDS: Acetaminophen 325 MG TABLET 650 MG PO (01:49)
[2024-02-24] MEDS: traZODone HCL 50 MG TABLET PO ×2 (01:49→20:15)
[2024-02-24 08:41] VITALS: BP 132/58; PULSE 68; RESP 14; TEMP 36.4; O2SAT 97
[2024-02-24] MEDS: predniSONE 1 MG TABLET PO (08:47)
[2024-02-24] MEDS: amLODIPine Besylate 5 MG TABLET PO (08:47)
[2024-02-24] MEDS: Cholecalciferol (Vitamin D3) 25 MCG TABLET PO (08:48)
[2024-02-24] MEDS: Fludrocortisone Acetate 0.1 MG TABLET PO ×2 (08:48→20:15)
[2024-02-24] MEDS: predniSONE 5 MG TABLET PO (08:48)
[2024-02-24] MEDS: Atorvastatin Calcium 20 MG TABLET PO (08:48)
--- NOTE | 2024-02-24 15:21 | P.PNPSI_ITS ---
Subjective Subjective Date of Service: 02/24/24 Reason For Visit: dementia Interim History: Pt seen, discussed with the team Plan of care was reviewed. Pt is compliant with care. No current sx of distress are noted. She presents calm and attentive. Medication Compliance: Yes Side effects from medications: No Attending Groups: Yes Review of Systems Acute medical concerns: No Review of Systems Review of Systems Yes all other systems are reviewed and are negative Mental Status Exam Mental Status Exam Patient Appearance: Appropriate Patient Orientation: Person and Situation Level of Consciousness: Awake and Appropriate Patient Behavior: Guarded and Passive Mood Description: Withdrawn Affect Description: Constricted Patient Cognition Impaired: Yes Ability to Follow Directions: Good Speech Pattern: Clear Diagnostics Vital Signs (24Hr): Vital Signs - 24 hr 02/23/24 20:00 02/24/24 08:41 Temperature 97.8 F 97.5 F Pulse Rate 67 68 Respiratory Rate 16 14 Blood Pressure 129/71 132/58 L Pulse Oximetry 95 97 Oxygen Delivery Method Room Air Room Air BMI result Body Mass Index 22.8 Labs 02/01/24 08:26 Medications Medications Current Medications Acetaminophen (Acetaminophen 325 Mg Tablet) 650 mg PO Q6H PRN PRN Reason: Headache/Pain Mild Scale (1-3) Last Admin: 02/24/24 01:49 Dose: 650 mg Al Hydroxide/Mg Hydroxide (Magnesium Hydrox/Alum Hydrox 30 Ml Oral.Susp) 30 ml PO Q6H PRN PRN Reason: Heartburn/Nausea Amlodipine Besylate (Amlodipine Besylate 5 Mg Tablet) 5 mg PO DAILY [facility]; Protocol Last Admin: 02/24/24 08:47 Dose: 5 mg Atorvastatin Calcium (Atorvastatin Calcium 20 Mg Tablet) 20 mg PO DAILY [facility] Last Admin: 02/24/24 08:48 Dose: 20 mg Benzocaine (Benzocaine 20 % Oral Gel 9 Gm Tube) 1 appl MUCOUS MEM QID PRN; Protocol PRN Reason: Pain, Mild (Pain Scale 1-3) Clozapine (Clozapine 100 Mg Tablet) 100 mg PO BEDTIME [facility] Last Admin: 02/11/24 20:12 Dose: Not Given Fludrocortisone Acetate (Fludrocortisone Acetate 0.1 Mg Tablet) 0.1 mg PO BID [facility] Last Admin: 02/24/24 08:48 Dose: 0.1 mg Magnesium Hydroxide (Milk Of Magnesia 30 Ml Oral.Susp) 30 ml PO DAILY PRN PRN Reason: Constipation Olanzapine (Olanzapine Odt 10 Mg Tab.Rapdis) 10 mg TRANSLINGU BID PRN PRN Reason: agitation Last Admin: 02/23/24 20:39 Dose: 10 mg Olanzapine (Olanzapine Odt 10 Mg Tab.Rapdis) 5 mg TRANSLINGU BEDTIME [facility] Last Admin: 02/23/24 20:39 Dose: 5 mg Prednisone (Prednisone 1 Mg Tablet) 1 mg PO DAILY [facility] Last Admin: 02/24/24 08:47 Dose: 1 mg Prednisone (Prednisone 5 Mg Tablet) 5 mg PO DAILY [facility] Last Admin: 02/24/24 08:48 Dose: 5 mg Risperidone (Risperidone 1 Mg Tablet) 1 mg PO TID PRN PRN Reason: psychosis/agitation Last Admin: 02/23/24 20:39 Dose: 1 mg Senna (Sennosides 8.6 Mg Tablet) 17.2 mg PO DAILY [facility] Last Admin: 02/24/24 08:48 Dose: Not Given Trazodone HCl (Trazodone Hcl 50 Mg Tablet) 50 mg PO BEDTIME MRX1 PRN PRN Reason: Insomnia Last Admin: 02/24/24 01:49 Dose: 50 mg Vitamin D (Cholecalciferol (Vitamin D3) 25 Mcg Tablet) 25 mcg PO DAILY [facility] Last Admin: 02/24/24 08:48 Dose: 25 mcg Allergies Allergies Allergy/AdvReac Type Severity Reaction Status Date / Time No Known Allergies Allergy Verified 12/25/23 17:04 Assessment & Plan Assessment & Plan (1) Schizoaffective disorder, depressive type: Status: Acute Code(s): F25.1 - Schizoaffective disorder, depressive type (2) Dementia: Status: Acute Code(s): F03.90 - Unspecified dementia, unspecified severity, without behavioral disturbance, psychotic disturbance, mood disturbance, and anxiety Plan The patient is an elderly female with a past history of schizoaffective disorder bipolar type, cognitive impairment and several medical comorbidities who was initially admitted for psychotic decompensation and needed to be transferred to Medicine due to sepsis. She was medically cleared transferring back into this facility for continuation of care. 02/21/24: Continue to encourage treatment. 02/22 continue tx. 02/23 Continue current regime and plan of care Reason for continued inpatient stay Substantial Risk for: rapid decompensation Time Spent With Patient Time: Total time managing care of this patient today ____ minutes.
[2024-02-24 19:43] VITALS: BP 105/58; PULSE 62; TEMP 36.1; O2SAT 97
[2024-02-24] MEDS: OLANZapine ODT 10 MG TAB.RAPDIS 5 MG TRANSLINGU (20:15)
[2024-02-24] MEDS: risperiDONE 1 MG TABLET PO (20:15)
[2024-02-25 07:40] VITALS: BP 110/62; PULSE 55; RESP 16; TEMP 36.2; O2SAT 95
[2024-02-25] MEDS: amLODIPine Besylate 5 MG TABLET PO (07:58)
[2024-02-25] MEDS: predniSONE 1 MG TABLET PO (07:58)
[2024-02-25] MEDS: Fludrocortisone Acetate 0.1 MG TABLET PO ×2 (07:59→20:18)
[2024-02-25] MEDS: Sennosides 8.6 MG TABLET 17.2 MG PO (07:59)
[2024-02-25] MEDS: Atorvastatin Calcium 20 MG TABLET PO (07:59)
[2024-02-25] MEDS: Cholecalciferol (Vitamin D3) 25 MCG TABLET PO (07:59)
[2024-02-25] MEDS: predniSONE 5 MG TABLET PO (07:59)
--- NOTE | 2024-02-25 13:56 | P.PNPSI_ITS ---
Subjective Subjective Date of Service: 02/25/24 Reason For Visit: dementia Interim History: Pt seen in the milieu, reviewed with team. Plan of care reviewed. Today pt reports no symptoms of concern, I am ready to shower. Medication Compliance: Yes Side effects from medications: No Attending Groups: Intermittent Review of Systems Acute medical concerns: No Review of Systems Review of Systems Denies Mental Status Exam Mental Status Exam Patient Appearance: Appropriate Patient Orientation: Person and Situation Level of Consciousness: Awake and Appropriate Patient Behavior: Guarded and Passive Mood Description: Withdrawn Affect Description: Constricted Patient Cognition Impaired: Yes Ability to Follow Directions: Good Speech Pattern: Clear Diagnostics Vital Signs (24Hr): Vital Signs - 24 hr 02/24/24 19:43 02/25/24 07:40 Temperature 97.0 F 97.2 F Pulse Rate 62 55 Respiratory Rate 16 Blood Pressure 105/58 L 110/62 Pulse Oximetry 97 95 Oxygen Delivery Method Room Air Room Air BMI result Body Mass Index 22.8 Labs 02/01/24 08:26 Medications Medications Current Medications Acetaminophen (Acetaminophen 325 Mg Tablet) 650 mg PO Q6H PRN PRN Reason: Headache/Pain Mild Scale (1-3) Last Admin: 02/24/24 01:49 Dose: 650 mg Al Hydroxide/Mg Hydroxide (Magnesium Hydrox/Alum Hydrox 30 Ml Oral.Susp) 30 ml PO Q6H PRN PRN Reason: Heartburn/Nausea Amlodipine Besylate (Amlodipine Besylate 5 Mg Tablet) 5 mg PO DAILY [facility]; Protocol Last Admin: 02/25/24 07:58 Dose: 5 mg Atorvastatin Calcium (Atorvastatin Calcium 20 Mg Tablet) 20 mg PO DAILY [facility] Last Admin: 02/25/24 07:59 Dose: 20 mg Benzocaine (Benzocaine 20 % Oral Gel 9 Gm Tube) 1 appl MUCOUS MEM QID PRN; Protocol PRN Reason: Pain, Mild (Pain Scale 1-3) Clozapine (Clozapine 100 Mg Tablet) 100 mg PO BEDTIME [facility] Last Admin: 02/11/24 20:12 Dose: Not Given Fludrocortisone Acetate (Fludrocortisone Acetate 0.1 Mg Tablet) 0.1 mg PO BID [facility] Last Admin: 02/25/24 07:59 Dose: 0.1 mg Magnesium Hydroxide (Milk Of Magnesia 30 Ml Oral.Susp) 30 ml PO DAILY PRN PRN Reason: Constipation Olanzapine (Olanzapine Odt 10 Mg Tab.Rapdis) 10 mg TRANSLINGU BID PRN PRN Reason: agitation Last Admin: 02/23/24 20:39 Dose: 10 mg Olanzapine (Olanzapine Odt 10 Mg Tab.Rapdis) 5 mg TRANSLINGU BEDTIME [facility] Last Admin: 02/24/24 20:15 Dose: 5 mg Prednisone (Prednisone 1 Mg Tablet) 1 mg PO DAILY [facility] Last Admin: 02/25/24 07:58 Dose: 1 mg Prednisone (Prednisone 5 Mg Tablet) 5 mg PO DAILY [facility] Last Admin: 02/25/24 07:59 Dose: 5 mg Risperidone (Risperidone 1 Mg Tablet) 1 mg PO TID PRN PRN Reason: psychosis/agitation Last Admin: 02/24/24 20:15 Dose: 1 mg Senna (Sennosides 8.6 Mg Tablet) 17.2 mg PO DAILY [facility] Last Admin: 02/25/24 07:59 Dose: 17.2 mg Trazodone HCl (Trazodone Hcl 50 Mg Tablet) 50 mg PO BEDTIME MRX1 PRN PRN Reason: Insomnia Last Admin: 02/24/24 20:15 Dose: 50 mg Vitamin D (Cholecalciferol (Vitamin D3) 25 Mcg Tablet) 25 mcg PO DAILY [facility] Last Admin: 02/25/24 07:59 Dose: 25 mcg Allergies Allergies Allergy/AdvReac Type Severity Reaction Status Date / Time No Known Allergies Allergy Verified 12/25/23 17:04 Assessment & Plan Assessment & Plan (1) Schizoaffective disorder, depressive type: Status: Acute Code(s): F25.1 - Schizoaffective disorder, depressive type (2) Dementia: Status: Acute Code(s): F03.90 - Unspecified dementia, unspecified severity, without behavioral disturbance, psychotic disturbance, mood disturbance, and anxiety Plan The patient is an elderly female with a past history of schizoaffective disorder bipolar type, cognitive impairment and several medical comorbidities who was initially admitted for psychotic decompensation and needed to be transferred to Medicine due to sepsis. She was medically cleared transferring back into this facility for continuation of care. 02/21/24: Continue to encourage treatment. 02/22 continue tx. 02/23 Continue current regime and plan of care 02/24 Continue current regime and plan of care Reason for continued inpatient stay Substantial Risk for: rapid decompensation Time Spent With Patient Time: Total time managing care of this patient today ____ minutes.
[2024-02-25 20:00] VITALS: BP 133/83; PULSE 64; RESP 16; TEMP 36.3; O2SAT 98
[2024-02-25] MEDS: OLANZapine ODT 10 MG TAB.RAPDIS 5 MG TRANSLINGU (20:17)
[2024-02-25] MEDS: risperiDONE 1 MG TABLET PO (20:17)
[2024-02-25] MEDS: traZODone HCL 50 MG TABLET PO (20:18)
[2024-02-26 08:32] VITALS: BP 124/56; PULSE 73; RESP 19; TEMP 36.3; O2SAT 98
[2024-02-26] MEDS: predniSONE 1 MG TABLET PO (08:34)
[2024-02-26] MEDS: Atorvastatin Calcium 20 MG TABLET PO (08:34)
[2024-02-26] MEDS: predniSONE 5 MG TABLET PO (08:34)
[2024-02-26] MEDS: Cholecalciferol (Vitamin D3) 25 MCG TABLET PO (08:34)
[2024-02-26] MEDS: Fludrocortisone Acetate 0.1 MG TABLET PO ×2 (08:34→19:56)
[2024-02-26] MEDS: amLODIPine Besylate 5 MG TABLET PO (08:34)
--- NOTE | 2024-02-26 14:26 | P.PNPSI_ITS ---
Subjective Subjective Date of Service: 02/26/24 Reason For Visit: dementia Subjective Notes: Conditional Voluntary Interim History: The nursing staff reported the patient had been compliant with Zyprexa for the last days. On interview the patient denies new symptoms, still isolative but a little more talkative. Mental Status Exam Mental Status Exam Patient Appearance: Well Grooomed and Appropriate Patient Orientation: Person and Situation Level of Consciousness: Awake and Appropriate Patient Behavior: Guarded and Passive Mood Description: Withdrawn Affect Description: Constricted Patient Cognition Impaired: Yes Ability to Follow Directions: Good Speech Pattern: Clear Hallucinations: None Delusions: Paranoid Ideation and Ideas of Reference Thought Process: Distracted and Slowed Thinking Thought Content: positive for [place] and positive for Poverty of Content Judgement: Fair Diagnostics Vital Signs (24Hr): Vital Signs - 24 hr 02/25/24 20:00 02/26/24 08:32 Temperature 97.3 F 97.4 F Pulse Rate 64 73 Respiratory Rate 16 19 Blood Pressure 133/83 124/56 L Pulse Oximetry 98 98 Oxygen Delivery Method Room Air Room Air BMI result Body Mass Index 22.8 Labs 02/01/24 08:26 Medications Medications Current Medications Acetaminophen (Acetaminophen 325 Mg Tablet) 650 mg PO Q6H PRN PRN Reason: Headache/Pain Mild Scale (1-3) Last Admin: 02/24/24 01:49 Dose: 650 mg Al Hydroxide/Mg Hydroxide (Magnesium Hydrox/Alum Hydrox 30 Ml Oral.Susp) 30 ml PO Q6H PRN PRN Reason: Heartburn/Nausea Amlodipine Besylate (Amlodipine Besylate 5 Mg Tablet) 5 mg PO DAILY [facility]; Protocol Last Admin: 02/26/24 08:34 Dose: 5 mg Atorvastatin Calcium (Atorvastatin Calcium 20 Mg Tablet) 20 mg PO DAILY [facility] Last Admin: 02/26/24 08:34 Dose: 20 mg Benzocaine (Benzocaine 20 % Oral Gel 9 Gm Tube) 1 appl MUCOUS MEM QID PRN; Protocol PRN Reason: Pain, Mild (Pain Scale 1-3) Clozapine (Clozapine 100 Mg Tablet) 100 mg PO BEDTIME [facility] Last Admin: 02/11/24 20:12 Dose: Not Given Fludrocortisone Acetate (Fludrocortisone Acetate 0.1 Mg Tablet) 0.1 mg PO BID [facility] Last Admin: 02/26/24 08:34 Dose: 0.1 mg Magnesium Hydroxide (Milk Of Magnesia 30 Ml Oral.Susp) 30 ml PO DAILY PRN PRN Reason: Constipation Olanzapine (Olanzapine Odt 10 Mg Tab.Rapdis) 10 mg TRANSLINGU BID PRN PRN Reason: agitation Last Admin: 02/23/24 20:39 Dose: 10 mg Olanzapine (Olanzapine Odt 10 Mg Tab.Rapdis) 5 mg TRANSLINGU BEDTIME [facility] Last Admin: 02/25/24 20:17 Dose: 5 mg Prednisone (Prednisone 1 Mg Tablet) 1 mg PO DAILY [facility] Last Admin: 02/26/24 08:34 Dose: 1 mg Prednisone (Prednisone 5 Mg Tablet) 5 mg PO DAILY [facility] Last Admin: 02/26/24 08:34 Dose: 5 mg Risperidone (Risperidone 1 Mg Tablet) 1 mg PO TID PRN PRN Reason: psychosis/agitation Last Admin: 02/25/24 20:17 Dose: 1 mg Senna (Sennosides 8.6 Mg Tablet) 17.2 mg PO DAILY [facility] Last Admin: 02/26/24 08:36 Dose: Not Given Trazodone HCl (Trazodone Hcl 50 Mg Tablet) 50 mg PO BEDTIME MRX1 PRN PRN Reason: Insomnia Last Admin: 02/25/24 20:18 Dose: 50 mg Vitamin D (Cholecalciferol (Vitamin D3) 25 Mcg Tablet) 25 mcg PO DAILY [facility] Last Admin: 02/26/24 08:34 Dose: 25 mcg Allergies Allergies Allergy/AdvReac Type Severity Reaction Status Date / Time No Known Allergies Allergy Verified 12/25/23 17:04 Assessment & Plan Assessment & Plan (1) Schizoaffective disorder, depressive type: Status: Acute Code(s): F25.1 - Schizoaffective disorder, depressive type (2) Dementia: Status: Acute Code(s): F03.90 - Unspecified dementia, unspecified severity, without behavioral disturbance, psychotic disturbance, mood disturbance, and anxiety Plan The patient is an elderly female with a past history of schizoaffective disorder bipolar type, cognitive impairment and several medical comorbidities who was initially admitted for psychotic decompensation and needed to be transferred to Medicine due to sepsis. She was medically cleared transferring back into this facility for continuation of care. Plan 1. Continue with antipsychotics. The patient had been consistently refusing Clozaril Risperdal so we started on Zyprexa. 2. Continue with regular treatment. 3. Waiting for guardianship. Reason for continued inpatient stay Substantial Risk for: inability to function, rapid decompensation and med/psych decompensation Time Spent With Patient Time: Total time managing care of this patient today __20__ minutes.
[2024-02-26] MEDS: OLANZapine ODT 10 MG TAB.RAPDIS 5 MG TRANSLINGU (19:55)
[2024-02-26 20:00] VITALS: BP 116/56; PULSE 111; RESP 16; TEMP 36.1; O2SAT 93
[2024-02-27 08:00] VITALS: BP 102/65; PULSE 58; RESP 16; TEMP 36.4; O2SAT 95
[2024-02-27 08:45] VITALS: BP 102/65
[2024-02-27] MEDS: predniSONE 5 MG TABLET PO (08:45)
[2024-02-27] MEDS: predniSONE 1 MG TABLET PO (08:45)
[2024-02-27] MEDS: amLODIPine Besylate 5 MG TABLET PO (08:45)
[2024-02-27] MEDS: Cholecalciferol (Vitamin D3) 25 MCG TABLET PO (08:46)
[2024-02-27] MEDS: Atorvastatin Calcium 20 MG TABLET PO (08:46)
[2024-02-27] MEDS: Fludrocortisone Acetate 0.1 MG TABLET PO ×2 (08:46→20:22)
--- NOTE | 2024-02-27 14:58 | HO.PSYCHPN ---
Subjective Subjective Date of Service: 02/27/24 Reason For Visit: dementia Subjective Notes: Conditional Voluntary Healthcare Proxy: Yes Interim History: The nursing staff reported the patient took her medications she showed flat affect and slept 7 hours. On interview the patient denies new symptoms, she had been compliant with Zyprexa for the last days no side effects. Mental Status Exam Mental Status Exam Patient Appearance: Well Grooomed and Appropriate Patient Orientation: Person and Situation Level of Consciousness: Awake and Appropriate Patient Behavior: Guarded and Passive Mood Description: Withdrawn Affect Description: Constricted Patient Cognition Impaired: Yes Ability to Follow Directions: Good Speech Pattern: Clear Hallucinations: None Delusions: Paranoid Ideation Thought Process: Distracted and Slowed Thinking Thought Content: positive for [place] and positive for Poverty of Content Judgement: Fair Diagnostics Vital Signs (24Hr): Vital Signs - 24 hr 02/26/24 20:00 02/27/24 08:00 02/27/24 08:45 Temperature 96.9 F 97.6 F Pulse Rate 111 H 58 Respiratory Rate 16 16 Blood Pressure 116/56 L 102/65 102/65 Pulse Oximetry 93 95 Oxygen Delivery Method Room Air Room Air BMI result Body Mass Index 22.8 Labs 02/01/24 08:26 Medications Medications Current Medications Acetaminophen (Acetaminophen 325 Mg Tablet) 650 mg PO Q6H PRN PRN Reason: Headache/Pain Mild Scale (1-3) Last Admin: 02/24/24 01:49 Dose: 650 mg Al Hydroxide/Mg Hydroxide (Magnesium Hydrox/Alum Hydrox 30 Ml Oral.Susp) 30 ml PO Q6H PRN PRN Reason: Heartburn/Nausea Amlodipine Besylate (Amlodipine Besylate 5 Mg Tablet) 5 mg PO DAILY [facility]; Protocol Last Admin: 02/27/24 08:45 Dose: 5 mg Atorvastatin Calcium (Atorvastatin Calcium 20 Mg Tablet) 20 mg PO DAILY [facility] Last Admin: 02/27/24 08:46 Dose: 20 mg Benzocaine (Benzocaine 20 % Oral Gel 9 Gm Tube) 1 appl MUCOUS MEM QID PRN; Protocol PRN Reason: Pain, Mild (Pain Scale 1-3) Clozapine (Clozapine 100 Mg Tablet) 100 mg PO BEDTIME [facility] Last Admin: 02/11/24 20:12 Dose: Not Given Fludrocortisone Acetate (Fludrocortisone Acetate 0.1 Mg Tablet) 0.1 mg PO BID [facility] Last Admin: 02/27/24 08:46 Dose: 0.1 mg Magnesium Hydroxide (Milk Of Magnesia 30 Ml Oral.Susp) 30 ml PO DAILY PRN PRN Reason: Constipation Olanzapine (Olanzapine Odt 10 Mg Tab.Rapdis) 10 mg TRANSLINGU BID PRN PRN Reason: agitation Last Admin: 02/23/24 20:39 Dose: 10 mg Olanzapine (Olanzapine Odt 10 Mg Tab.Rapdis) 5 mg TRANSLINGU BEDTIME [facility] Last Admin: 02/26/24 19:55 Dose: 5 mg Prednisone (Prednisone 1 Mg Tablet) 1 mg PO DAILY [facility] Last Admin: 02/27/24 08:45 Dose: 1 mg Prednisone (Prednisone 5 Mg Tablet) 5 mg PO DAILY [facility] Last Admin: 02/27/24 08:45 Dose: 5 mg Risperidone (Risperidone 1 Mg Tablet) 1 mg PO TID PRN PRN Reason: psychosis/agitation Last Admin: 02/25/24 20:17 Dose: 1 mg Senna (Sennosides 8.6 Mg Tablet) 17.2 mg PO DAILY [facility] Last Admin: 02/27/24 08:49 Dose: Not Given Trazodone HCl (Trazodone Hcl 50 Mg Tablet) 50 mg PO BEDTIME MRX1 PRN PRN Reason: Insomnia Last Admin: 02/25/24 20:18 Dose: 50 mg Vitamin D (Cholecalciferol (Vitamin D3) 25 Mcg Tablet) 25 mcg PO DAILY [facility] Last Admin: 02/27/24 08:46 Dose: 25 mcg Allergies Allergies Allergy/AdvReac Type Severity Reaction Status Date / Time No Known Allergies Allergy Verified 12/25/23 17:04 Assessment & Plan Assessment & Plan (1) Schizoaffective disorder, depressive type: Status: Acute Code(s): F25.1 - Schizoaffective disorder, depressive type (2) Dementia: Status: Acute Code(s): F03.90 - Unspecified dementia, unspecified severity, without behavioral disturbance, psychotic disturbance, mood disturbance, and anxiety Plan The patient is an elderly female with a past history of schizoaffective disorder bipolar type, cognitive impairment and several medical comorbidities who was initially admitted for psychotic decompensation and needed to be transferred to Medicine due to sepsis. She was medically cleared transferring back into this facility for continuation of care. Plan 1. Continue with antipsychotics. The patient had been consistently refusing Clozaril Risperdal so we started on Zyprexa. 2. Continue with regular treatment. 3. Waiting for guardianship. Reason for continued inpatient stay Substantial Risk for: inability to function, rapid decompensation and med/psych decompensation Time Spent With Patient Time: Total time managing care of this patient today __20__ minutes.
[2024-02-27] MEDS: risperiDONE 1 MG TABLET PO (18:20)
[2024-02-27 20:00] VITALS: BP 116/62; PULSE 66; RESP 18; TEMP 36.2; O2SAT 96
[2024-02-27] MEDS: traZODone HCL 50 MG TABLET PO (20:22)
[2024-02-27] MEDS: OLANZapine ODT 10 MG TAB.RAPDIS 5 MG TRANSLINGU (20:22)
[2024-02-28] MEDS: Acetaminophen 325 MG TABLET 650 MG PO (00:51)
[2024-02-28] MEDS: risperiDONE 1 MG TABLET PO ×2 (00:51→21:04)
[2024-02-28] MEDS: traZODone HCL 50 MG TABLET PO ×2 (00:51→21:05)
[2024-02-28 08:18] VITALS: BP 122/66; PULSE 62; RESP 18; TEMP 36.3; O2SAT 97
[2024-02-28] MEDS: predniSONE 1 MG TABLET PO (08:22)
[2024-02-28] MEDS: Atorvastatin Calcium 20 MG TABLET PO (08:22)
[2024-02-28] MEDS: Fludrocortisone Acetate 0.1 MG TABLET PO ×2 (08:23→21:05)
[2024-02-28] MEDS: amLODIPine Besylate 5 MG TABLET PO (08:23)
[2024-02-28] MEDS: predniSONE 5 MG TABLET PO (08:23)
[2024-02-28] MEDS: Cholecalciferol (Vitamin D3) 25 MCG TABLET PO (08:23)
--- NOTE | 2024-02-28 17:29 | P.PNPSI_ITS ---
Subjective Subjective Date of Service: 02/28/24 Reason For Visit: dementia Interim History: Met with patient; discussed with team Reviewed chart Patient highly irritable, paranoid; started screaming at roommate to get out of her room and rushed at a peer; intrusive to this peers. Fiber Optic Technician tried to discuss this with patient who was guarded and angry. Said she was taking her medication and irritated when copy writer discussed otherwise. Patient seemed to agreed to get back on clozapine which was restarted Mental Status Exam Mental Status Exam Narrative: Pt is alert and oriented; behavior is irritable and aggressive; dressed in casual attire with unkempt hair with marginal hygiene; mood is described good but affect remains constricted and irritable; somewhat glaring eye contact Speech is normal volume, rate and prosody; psychomotor agitation present; thought process is goal directed; Thought content with paranoid delusions; denies any SI/HI. AH and internally preoccupied. Patients insight and judgment impaired. Diagnostics Vital Signs (24Hr): Vital Signs - 24 hr 02/27/24 20:00 02/28/24 08:18 Temperature 97.2 F 97.4 F Pulse Rate 66 62 Respiratory Rate 18 18 Blood Pressure 116/62 122/66 Pulse Oximetry 96 97 Oxygen Delivery Method Room Air Room Air BMI result Body Mass Index 22.8 Labs 02/01/24 08:26 Medications Medications Current Medications Acetaminophen (Acetaminophen 325 Mg Tablet) 650 mg PO Q6H PRN PRN Reason: Headache/Pain Mild Scale (1-3) Last Admin: 02/28/24 00:51 Dose: 650 mg Al Hydroxide/Mg Hydroxide (Magnesium Hydrox/Alum Hydrox 30 Ml Oral.Susp) 30 ml PO Q6H PRN PRN Reason: Heartburn/Nausea Amlodipine Besylate (Amlodipine Besylate 5 Mg Tablet) 5 mg PO DAILY DORIE; Protocol Last Admin: 02/28/24 08:23 Dose: 5 mg Atorvastatin Calcium (Atorvastatin Calcium 20 Mg Tablet) 20 mg PO DAILY [facility] Last Admin: 02/28/24 08:22 Dose: 20 mg Benzocaine (Benzocaine 20 % Oral Gel 9 Gm Tube) 1 appl MUCOUS MEM QID PRN; Protocol PRN Reason: Pain, Mild (Pain Scale 1-3) Clozapine (Clozapine 100 Mg Tablet) 100 mg PO BEDTIME [facility] Last Admin: 02/11/24 20:12 Dose: Not Given Fludrocortisone Acetate (Fludrocortisone Acetate 0.1 Mg Tablet) 0.1 mg PO BID [facility] Last Admin: 02/28/24 08:23 Dose: 0.1 mg Magnesium Hydroxide (Milk Of Magnesia 30 Ml Oral.Susp) 30 ml PO DAILY PRN PRN Reason: Constipation Olanzapine (Olanzapine Odt 10 Mg Tab.Rapdis) 10 mg TRANSLINGU BID PRN PRN Reason: agitation Last Admin: 02/23/24 20:39 Dose: 10 mg Olanzapine (Olanzapine Odt 10 Mg Tab.Rapdis) 5 mg TRANSLINGU BEDTIME [facility] Last Admin: 02/27/24 20:22 Dose: 5 mg Prednisone (Prednisone 1 Mg Tablet) 1 mg PO DAILY [facility] Last Admin: 02/28/24 08:22 Dose: 1 mg Prednisone (Prednisone 5 Mg Tablet) 5 mg PO DAILY [facility] Last Admin: 02/28/24 08:23 Dose: 5 mg Risperidone (Risperidone 1 Mg Tablet) 1 mg PO TID PRN PRN Reason: psychosis/agitation Last Admin: 02/28/24 00:51 Dose: 1 mg Senna (Sennosides 8.6 Mg Tablet) 17.2 mg PO DAILY [facility] Last Admin: 02/28/24 08:25 Dose: Not Given Trazodone HCl (Trazodone Hcl 50 Mg Tablet) 50 mg PO BEDTIME MRX1 PRN PRN Reason: Insomnia Last Admin: 02/28/24 00:51 Dose: 50 mg Vitamin D (Cholecalciferol (Vitamin D3) 25 Mcg Tablet) 25 mcg PO DAILY [facility] Last Admin: 02/28/24 08:23 Dose: 25 mcg Allergies Allergies Allergy/AdvReac Type Severity Reaction Status Date / Time No Known Allergies Allergy Verified 12/25/23 17:04 Assessment & Plan Assessment & Plan (1) Schizoaffective disorder, depressive type: Status: Acute Code(s): F25.1 - Schizoaffective disorder, depressive type (2) Dementia: Status: Acute Code(s): F03.90 - Unspecified dementia, unspecified severity, without behavioral disturbance, psychotic disturbance, mood disturbance, and anxiety Plan The patient is an elderly female with a past history of schizoaffective disorder bipolar type, cognitive impairment and several medical comorbidities who was initially admitted for psychotic decompensation and needed to be transferred to Medicine due to sepsis. She was medically cleared transferring back into this facility for continuation of care. 02/21/24: Continue to encourage treatment. 02/22 continue tx. 02/23 Continue current regime and plan of care 02/24 Continue current regime and plan of care 02/28/24 Patient highly irritable, paranoid; started screaming at roommate to get out of her room and rushed at a peer; intrusive to this peers. Fiber Optic Technician tried to discuss this with patient who was guarded and angry. Said she was taking her medication and irritated when copy writer discussed otherwise. Patient seemed to agreed to get back on clozapine which was restarted -Restart Clozapine (recent ANC wnl) Patient educated on: diagnosis and medication risk/benefits Informed Consent: does not understand Reason for continued inpatient stay Substantial Risk for: inability to function Time Spent With Patient Time: Total time managing care of this patient today ____ minutes.
--- NOTE | 2024-02-28 19:11 | PC.NURSE ---
This evening pt became agitated towards staff after being told she could not share dinner with other pt's. She began yelling in the hallway and attempting to sleep in the sensory room. When staff attempted to assist pt to her bed, she stated to this nurse Get the fuck out of here you bitch! and proceeded to swing her fists in an attempt to punch staff. She denied PO PRN's for agitation and agreed to go to her bed if staff stayed with her for some time. While in the room with her, pt began calling this nurse an asshole and a liar and stated You keep messing with my head, telling me you cant let me leave when I know you can. I can hear you in my brain, you fucking asshole . Pt then threatened to kill her roommate and was changed to a private room. After the room change, pt continuously tried to go back to her old room and began hitting/kicking staff when re-directing her to her bed. During this time, pt's right pinky toe nail had lifted and began to bleed, pt was then able to calm down when this nurse offered to assist her in cleaning it and applying a band aid. She asked if she could sit out in the milieu and is currently visible sitting calmly in front of the tv with peers.
[2024-02-28 19:45] VITALS: BP 114/57; PULSE 85; TEMP 36.7; O2SAT 98
[2024-02-28] MEDS: OLANZapine ODT 10 MG TAB.RAPDIS 5 MG TRANSLINGU (21:04)
[2024-02-29 09:59] VITALS: BP 126/71; PULSE 73; RESP 18; TEMP 36.4; O2SAT 98
[2024-02-29] MEDS: Sennosides 8.6 MG TABLET 17.2 MG PO (10:00)
[2024-02-29] MEDS: predniSONE 5 MG TABLET PO (10:00)
[2024-02-29] MEDS: Fludrocortisone Acetate 0.1 MG TABLET PO ×2 (10:00→20:25)
[2024-02-29] MEDS: amLODIPine Besylate 5 MG TABLET PO (10:00)
[2024-02-29] MEDS: Atorvastatin Calcium 20 MG TABLET PO (10:00)
[2024-02-29] MEDS: Cholecalciferol (Vitamin D3) 25 MCG TABLET PO (10:00)
[2024-02-29] MEDS: predniSONE 1 MG TABLET PO (10:00)
--- NOTE | 2024-02-29 10:16 | P.PNPSI_ITS ---
Subjective Subjective Date of Service: 02/29/24 Reason For Visit: dementia Subjective Notes: Conditional Voluntary Healthcare Proxy: Yes Interim History: The nursing staff reported that yesterday the patient became agitated she has tried to punch staff and needed p.o. p.r.n.. She was moved to a single room since she was threatening her roommate. On interview the patient denies new symptoms. We are increasing her Zyprexa up to 10 mg p.o. q.h.s.. The medical social worker reported that she is going to have a hearing for her guardianship on March 12. Mental Status Exam Mental Status Exam Patient Appearance: Appropriate Patient Orientation: Person and Situation Level of Consciousness: Awake and Appropriate Patient Behavior: Guarded and Passive Mood Description: Withdrawn Affect Description: Blunted Patient Cognition Impaired: Yes Ability to Follow Directions: Good Speech Pattern: Clear Hallucinations: None Delusions: Paranoid Ideation and Ideas of Reference Thought Process: Distracted and Slowed Thinking Thought Content: positive for [place] and positive for Poverty of Content Judgement: Poor Diagnostics Vital Signs (24Hr): Vital Signs - 24 hr 02/28/24 19:45 02/29/24 09:59 Temperature 98.0 F 97.6 F Pulse Rate 85 73 Respiratory Rate 18 Blood Pressure 114/57 L 126/71 Pulse Oximetry 98 98 Oxygen Delivery Method Room Air Room Air BMI result Body Mass Index 22.8 Labs 02/01/24 08:26 Medications Medications Current Medications Acetaminophen (Acetaminophen 325 Mg Tablet) 650 mg PO Q6H PRN PRN Reason: Headache/Pain Mild Scale (1-3) Last Admin: 02/28/24 00:51 Dose: 650 mg Al Hydroxide/Mg Hydroxide (Magnesium Hydrox/Alum Hydrox 30 Ml Oral.Susp) 30 ml PO Q6H PRN PRN Reason: Heartburn/Nausea Amlodipine Besylate (Amlodipine Besylate 5 Mg Tablet) 5 mg PO DAILY DORIE; Protocol Last Admin: 02/29/24 10:00 Dose: 5 mg Atorvastatin Calcium (Atorvastatin Calcium 20 Mg Tablet) 20 mg PO DAILY [facility] Last Admin: 02/29/24 10:00 Dose: 20 mg Benzocaine (Benzocaine 20 % Oral Gel 9 Gm Tube) 1 appl MUCOUS MEM QID PRN; Protocol PRN Reason: Pain, Mild (Pain Scale 1-3) Clozapine (Clozapine 25 Mg Tablet) 25 mg PO BEDTIME [facility] Fludrocortisone Acetate (Fludrocortisone Acetate 0.1 Mg Tablet) 0.1 mg PO BID [facility] Last Admin: 02/29/24 10:00 Dose: 0.1 mg Magnesium Hydroxide (Milk Of Magnesia 30 Ml Oral.Susp) 30 ml PO DAILY PRN PRN Reason: Constipation Olanzapine (Olanzapine Odt 10 Mg Tab.Rapdis) 10 mg TRANSLINGU BID PRN PRN Reason: agitation Last Admin: 02/23/24 20:39 Dose: 10 mg Olanzapine (Olanzapine Odt 10 Mg Tab.Rapdis) 10 mg TRANSLINGU BEDTIME [facility] Prednisone (Prednisone 1 Mg Tablet) 1 mg PO DAILY [facility] Last Admin: 02/29/24 10:00 Dose: 1 mg Prednisone (Prednisone 5 Mg Tablet) 5 mg PO DAILY [facility] Last Admin: 02/29/24 10:00 Dose: 5 mg Risperidone (Risperidone 1 Mg Tablet) 1 mg PO TID PRN PRN Reason: psychosis/agitation Last Admin: 02/28/24 21:04 Dose: 1 mg Senna (Sennosides 8.6 Mg Tablet) 17.2 mg PO DAILY [facility] Last Admin: 02/29/24 10:00 Dose: 17.2 mg Trazodone HCl (Trazodone Hcl 50 Mg Tablet) 50 mg PO BEDTIME MRX1 PRN PRN Reason: Insomnia Last Admin: 02/28/24 21:05 Dose: 50 mg Vitamin D (Cholecalciferol (Vitamin D3) 25 Mcg Tablet) 25 mcg PO DAILY [facility] Last Admin: 02/29/24 10:00 Dose: 25 mcg Allergies Allergies Allergy/AdvReac Type Severity Reaction Status Date / Time No Known Allergies Allergy Verified 12/25/23 17:04 Assessment & Plan Assessment & Plan (1) Schizoaffective disorder, depressive type: Status: Acute Code(s): F25.1 - Schizoaffective disorder, depressive type (2) Dementia: Status: Acute Code(s): F03.90 - Unspecified dementia, unspecified severity, without behavioral disturbance, psychotic disturbance, mood disturbance, and anxiety Plan The patient is an elderly female with a past history of schizoaffective disorder bipolar type, cognitive impairment and several medical comorbidities who was initially admitted for psychotic decompensation and needed to be transferred to Medicine due to sepsis. She was medically cleared transferring back into this facility for continuation of care. Plan 1. Referral for guardianship since the patient is demented. 2. The patient has a hearing for guardianship on March 12. 3. The patient had been chronically noncompliant so we change to Zyprexa that she had been compliant in the last days. She had been more psychotic and aggressive. We are increasing Zyprexa to 10 mg p.o. q.h.s. on February 28. Reason for continued inpatient stay Substantial Risk for: inability to function, rapid decompensation and med/psych decompensation Time Spent With Patient Time: Total time managing care of this patient today __20__ minutes.
[2024-02-29 13:10] VITALS: BMI 23.7
[2024-02-29 19:21] VITALS: BP 113/58; PULSE 54; TEMP 36; O2SAT 97
[2024-02-29] MEDS: OLANZapine ODT 10 MG TAB.RAPDIS TRANSLINGU (20:25)
[2024-02-29] MEDS: traZODone HCL 50 MG TABLET PO (20:26)
[2024-03-01 08:56] VITALS: BP 137/79; PULSE 77; RESP 16; TEMP 36.6; O2SAT 99
[2024-03-01] MEDS: amLODIPine Besylate 5 MG TABLET PO (08:58)
[2024-03-01] MEDS: predniSONE 5 MG TABLET PO (08:58)
[2024-03-01] MEDS: Atorvastatin Calcium 20 MG TABLET PO (08:58)
[2024-03-01] MEDS: Cholecalciferol (Vitamin D3) 25 MCG TABLET PO (08:58)
[2024-03-01] MEDS: predniSONE 1 MG TABLET PO (08:58)
[2024-03-01] MEDS: Fludrocortisone Acetate 0.1 MG TABLET PO (08:58)
--- NOTE | 2024-03-01 15:45 | P.PNPSI_ITS ---
Subjective Subjective Date of Service: 03/01/24 Reason For Visit: dementia Subjective Notes: Conditional Voluntary Interim History: The nursing staff reported the patient had been isolative medication compliant, waiting for guardianship paperwork for this month. On interview the patient denies new symptoms waiting for placement. Mental Status Exam Mental Status Exam Patient Appearance: Appropriate Patient Orientation: Person and Situation Level of Consciousness: Awake and Appropriate Patient Behavior: Guarded and Passive Mood Description: Withdrawn Affect Description: Constricted Patient Cognition Impaired: Yes Ability to Follow Directions: Good Speech Pattern: Clear Hallucinations: None Delusions: Paranoid Ideation and Ideas of Reference Thought Process: Distracted and Slowed Thinking Thought Content: positive for [place] and positive for Poverty of Content Judgement: Fair Diagnostics Vital Signs (24Hr): Vital Signs - 24 hr 02/29/24 19:21 03/01/24 08:56 Temperature 96.8 F 97.9 F Pulse Rate 54 77 Respiratory Rate 16 Blood Pressure 113/58 L 137/79 Pulse Oximetry 97 99 Oxygen Delivery Method Room Air Room Air BMI result Body Mass Index 23.7 Labs 02/01/24 08:26 Medications Medications Current Medications Acetaminophen (Acetaminophen 325 Mg Tablet) 650 mg PO Q6H PRN PRN Reason: Headache/Pain Mild Scale (1-3) Last Admin: 02/28/24 00:51 Dose: 650 mg Al Hydroxide/Mg Hydroxide (Magnesium Hydrox/Alum Hydrox 30 Ml Oral.Susp) 30 ml PO Q6H PRN PRN Reason: Heartburn/Nausea Amlodipine Besylate (Amlodipine Besylate 5 Mg Tablet) 5 mg PO DAILY [facility]; Protocol Last Admin: 03/01/24 08:58 Dose: 5 mg Atorvastatin Calcium (Atorvastatin Calcium 20 Mg Tablet) 20 mg PO DAILY [facility] Last Admin: 03/01/24 08:58 Dose: 20 mg Benzocaine (Benzocaine 20 % Oral Gel 9 Gm Tube) 1 appl MUCOUS MEM QID PRN; Protocol PRN Reason: Pain, Mild (Pain Scale 1-3) Clozapine (Clozapine 25 Mg Tablet) 25 mg PO BEDTIME [facility] Fludrocortisone Acetate (Fludrocortisone Acetate 0.1 Mg Tablet) 0.1 mg PO BID [facility] Last Admin: 03/01/24 08:58 Dose: 0.1 mg Magnesium Hydroxide (Milk Of Magnesia 30 Ml Oral.Susp) 30 ml PO DAILY PRN PRN Reason: Constipation Olanzapine (Olanzapine Odt 10 Mg Tab.Rapdis) 10 mg TRANSLINGU BID PRN PRN Reason: agitation Last Admin: 02/23/24 20:39 Dose: 10 mg Olanzapine (Olanzapine Odt 10 Mg Tab.Rapdis) 10 mg TRANSLINGU BEDTIME [facility] Last Admin: 02/29/24 20:25 Dose: 10 mg Prednisone (Prednisone 1 Mg Tablet) 1 mg PO DAILY [facility] Last Admin: 03/01/24 08:58 Dose: 1 mg Prednisone (Prednisone 5 Mg Tablet) 5 mg PO DAILY [facility] Last Admin: 03/01/24 08:58 Dose: 5 mg Risperidone (Risperidone 1 Mg Tablet) 1 mg PO TID PRN PRN Reason: psychosis/agitation Last Admin: 02/28/24 21:04 Dose: 1 mg Senna (Sennosides 8.6 Mg Tablet) 17.2 mg PO DAILY [facility] Last Admin: 03/01/24 09:00 Dose: Not Given Trazodone HCl (Trazodone Hcl 50 Mg Tablet) 50 mg PO BEDTIME MRX1 PRN PRN Reason: Insomnia Last Admin: 02/29/24 20:26 Dose: 50 mg Vitamin D (Cholecalciferol (Vitamin D3) 25 Mcg Tablet) 25 mcg PO DAILY [facility] Last Admin: 03/01/24 08:58 Dose: 25 mcg Allergies Allergies Allergy/AdvReac Type Severity Reaction Status Date / Time No Known Allergies Allergy Verified 12/25/23 17:04 Assessment & Plan Assessment & Plan (1) Schizoaffective disorder, depressive type: Status: Acute Code(s): F25.1 - Schizoaffective disorder, depressive type (2) Dementia: Status: Acute Code(s): F03.90 - Unspecified dementia, unspecified severity, without behavioral disturbance, psychotic disturbance, mood disturbance, and anxiety Plan The patient is an elderly female with a past history of schizoaffective disorder bipolar type, cognitive impairment and several medical comorbidities who was initially admitted for psychotic decompensation and needed to be transferred to Medicine due to sepsis. She was medically cleared transferring back into this facility for continuation of care. Plan 1. Referral for guardianship since the patient is demented. 2. The patient has a hearing for guardianship on March 12. 3. The patient had been chronically noncompliant so we change to Zyprexa that she had been compliant in the last days. She had been more psychotic and aggressive. We are increasing Zyprexa to 10 mg p.o. q.h.s. on February 28. Reason for continued inpatient stay Substantial Risk for: inability to function, rapid decompensation and med/psych decompensation Time Spent With Patient Time: Total time managing care of this patient today _20___ minutes.
[2024-03-01] MEDS: Haloperidol Lactate 5 MG/ML VIAL IM (18:46)
--- NOTE | 2024-03-01 18:54 | HO.EVEPSY_ITS ---
Documented by User: Britney Nuñez NP 03/01/24 19:10 Event Note Date of Service: 03/01/24 Psych Restraint Event Note: This newspaper writer received message from DAYNE Torres stating pt combative attempting to swing at staff, not able to be redirected. Ordered Haldol 5mg IM, ativan 1mg IM. face to face assessment to be completed by hospitalist on site. Time Spent With Patient Time: Total time managing care of this patient today ____ minutes. Documented by User: Blaine Butterfield MD 03/02/24 21:39 Event Note Date of Service: 03/02/24
--- NOTE | 2024-03-01 19:42 | PC.NURSE ---
June spontaneously became verbally aggressive with peers and was shouting go fuck yourselves and I hope you all which was significantly disrupting the milieu and scaring peers. Staff verbally redirected her and she began to punch and kick at staff. A physical hold began at 1840 for safety of staff. Britney Nuñez NP was notified of physical aggression and 5mg IM Haldol ordered and administered at 1846. Hold ended at 1846 as June agreed to maintain control. After the restraint she was no longer was physically aggressive and was able to maintain control. director Alisa Coe, clinical coordinator Margaret Narayanan, and HRO Mary Rush notified via tiger text at 1854 of restraint. Guardian/daughter Eve Mayer called and voice message left at 1929. MD Dr. Siu on unit to assess patient at 1941. June had no apparent physical or psychological injury from restraint.
--- NOTE | 2024-03-01 19:57 | HO.BHRESTREX ---
Behavioral Restraint Exam Behavioral Health Restraint Exam Type of Restraint: Medication Reason for Restraint: Substantial Risk of Harm to Others Medical Concerns for Restraint: No medical concerns, pt w/o acute inj / no noted resp/VS abnormalities Behavioral Assessment / Plan: No further behavioral concerns, continue current plan.
[2024-03-01 20:00] VITALS: BP 119/58; PULSE 77; TEMP 37.1; O2SAT 95
[2024-03-01] MEDS: traZODone HCL 50 MG TABLET PO (22:06)
[2024-03-01] MEDS: risperiDONE 1 MG TABLET PO (22:30)
[2024-03-01] MEDS: OLANZapine ODT 10 MG TAB.RAPDIS TRANSLINGU (22:30)
--- NOTE | 2024-03-02 08:44 | P.PNPSI_ITS ---
Subjective Subjective Date of Service: 03/02/24 Reason For Visit: dementia Guardianship: Yes Interim History: 73 yo who was agitated last pm needed IM haldol and response team-called was yelling and threatening- who has no memory of it this am- nursing reports ongoing concerns over patient now that not on clozapine inc behavioral issues since return from medical unit- but pt reportedly didn't want clozapine restart at she didn't feel herself Currently on olanzapine so will inc dosing of that instead- Medication Compliance: Yes Side effects from medications: No Attending Groups: No Review of Systems Acute medical concerns: No Medical Review of Systems: unchanged Mental Status Exam Mental Status Exam Narrative: lying in bed Patient Appearance: Fatigued Patient Orientation: Person Level of Consciousness: Awake Patient Behavior: Guarded and Passive Mood Description: Apathetic Affect Description: Labile Patient Cognition Impaired: Yes Ability to Follow Directions: Poor Speech Pattern: Clear Thought Process: Slowed Thinking Thought Content: positive for [place] and positive for Poverty of Content Judgement: Poor Diagnostics Vital Signs (24Hr): Vital Signs - 24 hr 03/01/24 08:56 03/01/24 20:00 Temperature 97.9 F 98.7 F Pulse Rate 77 77 Respiratory Rate 16 Blood Pressure 137/79 119/58 L Pulse Oximetry 99 95 Oxygen Delivery Method Room Air Room Air BMI result Body Mass Index 23.7 Labs 02/01/24 08:26 Medications Medications Current Medications Acetaminophen (Acetaminophen 325 Mg Tablet) 650 mg PO Q6H PRN PRN Reason: Headache/Pain Mild Scale (1-3) Last Admin: 02/28/24 00:51 Dose: 650 mg Al Hydroxide/Mg Hydroxide (Magnesium Hydrox/Alum Hydrox 30 Ml Oral.Susp) 30 ml PO Q6H PRN PRN Reason: Heartburn/Nausea Amlodipine Besylate (Amlodipine Besylate 5 Mg Tablet) 5 mg PO DAILY [facility]; Protocol Last Admin: 03/01/24 08:58 Dose: 5 mg Atorvastatin Calcium (Atorvastatin Calcium 20 Mg Tablet) 20 mg PO DAILY [facility] Last Admin: 03/01/24 08:58 Dose: 20 mg Benzocaine (Benzocaine 20 % Oral Gel 9 Gm Tube) 1 appl MUCOUS MEM QID PRN; Protocol PRN Reason: Pain, Mild (Pain Scale 1-3) Clozapine (Clozapine 25 Mg Tablet) 25 mg PO BEDTIME [facility] Fludrocortisone Acetate (Fludrocortisone Acetate 0.1 Mg Tablet) 0.1 mg PO BID [facility] Last Admin: 03/01/24 20:43 Dose: Not Given Magnesium Hydroxide (Milk Of Magnesia 30 Ml Oral.Susp) 30 ml PO DAILY PRN PRN Reason: Constipation Olanzapine (Olanzapine Odt 10 Mg Tab.Rapdis) 10 mg TRANSLINGU BID PRN PRN Reason: agitation Last Admin: 03/01/24 22:30 Dose: 10 mg Olanzapine (Olanzapine Odt 10 Mg Tab.Rapdis) 10 mg TRANSLINGU BEDTIME [facility] Last Admin: 03/01/24 20:43 Dose: Not Given Prednisone (Prednisone 1 Mg Tablet) 1 mg PO DAILY [facility] Last Admin: 03/01/24 08:58 Dose: 1 mg Prednisone (Prednisone 5 Mg Tablet) 5 mg PO DAILY [facility] Last Admin: 03/01/24 08:58 Dose: 5 mg Risperidone (Risperidone 1 Mg Tablet) 1 mg PO TID PRN PRN Reason: psychosis/agitation Last Admin: 03/01/24 22:30 Dose: 1 mg Senna (Sennosides 8.6 Mg Tablet) 17.2 mg PO DAILY [facility] Last Admin: 03/01/24 09:00 Dose: Not Given Trazodone HCl (Trazodone Hcl 50 Mg Tablet) 50 mg PO BEDTIME MRX1 PRN PRN Reason: Insomnia Last Admin: 03/01/24 22:06 Dose: 50 mg Vitamin D (Cholecalciferol (Vitamin D3) 25 Mcg Tablet) 25 mcg PO DAILY [facility] Last Admin: 03/01/24 08:58 Dose: 25 mcg Allergies Allergies Allergy/AdvReac Type Severity Reaction Status Date / Time No Known Allergies Allergy Verified 12/25/23 17:04 Assessment & Plan Assessment & Plan (1) Schizoaffective disorder, depressive type: Status: Acute Code(s): F25.1 - Schizoaffective disorder, depressive type (2) Dementia: Status: Acute Code(s): F03.90 - Unspecified dementia, unspecified severity, without behavioral disturbance, psychotic disturbance, mood disturbance, and anxiety Plan The patient is an elderly female with a past history of schizoaffective disorder bipolar type, cognitive impairment and several medical comorbidities who was initially admitted for psychotic decompensation and needed to be transferred to Medicine due to sepsis. She was medically cleared transferring back into this facility for continuation of care. Plan 1. Referral for guardianship since the patient is demented. 2. The patient has a hearing for guardianship on March 12. 3. The patient had been chronically noncompliant so we change to Zyprexa that she had been compliant in the last days. She had been more psychotic and aggressive. We are increasing Zyprexa to 10 mg p.o. q.h.s. on February 28. 03/02/24 inc hs olanz\zapine to 15mg - room change to decrease disruption to other patients Patient educated on: medication risk/benefits Informed Consent: further education needed Reason for continued inpatient stay Substantial Risk for: harm to others, inability to function and med/psych decompensation Time Spent With Patient Time: Total time managing care of this patient today ____ minutes.
[2024-03-02 09:29] VITALS: BP 132/66; PULSE 61; RESP 18; TEMP 36.5; O2SAT 98
[2024-03-02] MEDS: Fludrocortisone Acetate 0.1 MG TABLET PO ×2 (09:31→20:01)
[2024-03-02] MEDS: Atorvastatin Calcium 20 MG TABLET PO (09:31)
[2024-03-02] MEDS: predniSONE 1 MG TABLET PO (09:31)
[2024-03-02] MEDS: amLODIPine Besylate 5 MG TABLET PO (09:32)
[2024-03-02] MEDS: predniSONE 5 MG TABLET PO (09:32)
[2024-03-02] MEDS: Cholecalciferol (Vitamin D3) 25 MCG TABLET PO (09:32)
[2024-03-02 20:00] VITALS: BP 121/60; PULSE 69; RESP 16; TEMP 36.1; O2SAT 95
[2024-03-02] MEDS: OLANZapine ODT 10 MG TAB.RAPDIS TRANSLINGU ×2 (20:00→23:40)
[2024-03-02] MEDS: traZODone HCL 50 MG TABLET PO ×2 (20:00→23:40)
[2024-03-02] MEDS: risperiDONE 1 MG TABLET PO (20:00)
[2024-03-03 08:05] VITALS: BP 104/64; PULSE 63; RESP 18; TEMP 36.1; O2SAT 97
[2024-03-03] MEDS: predniSONE 5 MG TABLET PO (09:00)
[2024-03-03 09:01] VITALS: BP 104/64
[2024-03-03] MEDS: OLANZapine ODT 10 MG TAB.RAPDIS TRANSLINGU ×2 (09:01→20:51)
[2024-03-03] MEDS: Atorvastatin Calcium 20 MG TABLET PO (09:01)
[2024-03-03] MEDS: amLODIPine Besylate 5 MG TABLET PO (09:01)
[2024-03-03] MEDS: predniSONE 1 MG TABLET PO (09:01)
[2024-03-03] MEDS: Fludrocortisone Acetate 0.1 MG TABLET PO ×2 (09:01→20:51)
[2024-03-03] MEDS: Cholecalciferol (Vitamin D3) 25 MCG TABLET PO (09:01)
--- NOTE | 2024-03-03 12:07 | P.PNPSI_ITS ---
Subjective Subjective Date of Service: 03/03/24 Reason For Visit: dementia Guardianship: Yes Medical Problems Affecting Mental Status: No Interim History: 73 yo reports doing ok - slept well in own room- says doesn't want to be on clozapine due to not feeling like herself but is ok with olanzapine, which this provider increased last pm- watch glucose-/diabetes Medication Compliance: Yes Side effects from medications: No Attending Groups: No Review of Systems Acute medical concerns: No Medical Review of Systems: unchanged Mental Status Exam Mental Status Exam Narrative: lying in bed covered in blanket Patient Orientation: Person, Place and Situation Level of Consciousness: Awake Patient Behavior: Guarded, Passive and Isolative Mood Description: Calm Affect Description: Labile Patient Cognition Impaired: Yes Ability to Follow Directions: Poor Speech Pattern: Clear Delusions: Paranoid Ideation Thought Process: Goal Oriented Thought Content: positive for Poverty of Content Judgement: Poor Diagnostics Vital Signs (24Hr): Vital Signs - 24 hr 03/02/24 20:00 03/03/24 08:05 03/03/24 09:01 Temperature 97 F 97.0 F Pulse Rate 69 63 Respiratory Rate 16 18 Blood Pressure 121/60 104/64 104/64 Pulse Oximetry 95 97 Oxygen Delivery Method Room Air Room Air BMI result Body Mass Index 23.7 Labs 02/01/24 08:26 Medications Medications Current Medications Acetaminophen (Acetaminophen 325 Mg Tablet) 650 mg PO Q6H PRN PRN Reason: Headache/Pain Mild Scale (1-3) Last Admin: 02/28/24 00:51 Dose: 650 mg Al Hydroxide/Mg Hydroxide (Magnesium Hydrox/Alum Hydrox 30 Ml Oral.Susp) 30 ml PO Q6H PRN PRN Reason: Heartburn/Nausea Amlodipine Besylate (Amlodipine Besylate 5 Mg Tablet) 5 mg PO DAILY DORIE; Protocol Last Admin: 03/03/24 09:01 Dose: 5 mg Atorvastatin Calcium (Atorvastatin Calcium 20 Mg Tablet) 20 mg PO DAILY DORIE Last Admin: 03/03/24 09:01 Dose: 20 mg Benzocaine (Benzocaine 20 % Oral Gel 9 Gm Tube) 1 appl MUCOUS MEM QID PRN; Protocol PRN Reason: Pain, Mild (Pain Scale 1-3) Clozapine (Clozapine 25 Mg Tablet) 25 mg PO BEDTIME COUNT INCLUDES [facility] Fludrocortisone Acetate (Fludrocortisone Acetate 0.1 Mg Tablet) 0.1 mg PO BID COUNT INCLUDES [facility] Last Admin: 03/03/24 09:01 Dose: 0.1 mg Magnesium Hydroxide (Milk Of Magnesia 30 Ml Oral.Susp) 30 ml PO DAILY PRN PRN Reason: Constipation Olanzapine (Olanzapine Odt 10 Mg Tab.Rapdis) 10 mg TRANSLINGU BID PRN PRN Reason: agitation Last Admin: 03/03/24 09:01 Dose: 10 mg Olanzapine (Olanzapine Odt 10 Mg Tab.Rapdis) 10 mg TRANSLINGU BEDTIME COUNT [facility]CLUDES [facility] Last Admin: 03/02/24 20:00 Dose: 10 mg Prednisone (Prednisone 1 Mg Tablet) 1 mg PO DAILY [facility] Last Admin: 03/03/24 09:01 Dose: 1 mg Prednisone (Prednisone 5 Mg Tablet) 5 mg PO DAILY [facility] Last Admin: 03/03/24 09:00 Dose: 5 mg Risperidone (Risperidone 1 Mg Tablet) 1 mg PO TID PRN PRN Reason: psychosis/agitation Last Admin: 03/02/24 20:00 Dose: 1 mg Senna (Sennosides 8.6 Mg Tablet) 17.2 mg PO DAILY [facility] Last Admin: 03/03/24 09:04 Dose: Not Given Trazodone HCl (Trazodone Hcl 50 Mg Tablet) 50 mg PO BEDTIME MRX1 PRN PRN Reason: Insomnia Last Admin: 03/02/24 23:40 Dose: 50 mg Vitamin D (Cholecalciferol (Vitamin D3) 25 Mcg Tablet) 25 mcg PO DAILY [facility] Last Admin: 03/03/24 09:01 Dose: 25 mcg Allergies Allergies Allergy/AdvReac Type Severity Reaction Status Date / Time No Known Allergies Allergy Verified 12/25/23 17:04 Assessment & Plan Assessment & Plan (1) Schizoaffective disorder, depressive type: Status: Acute Code(s): F25.1 - Schizoaffective disorder, depressive type (2) Dementia: Status: Acute Code(s): F03.90 - Unspecified dementia, unspecified severity, without behavioral disturbance, psychotic disturbance, mood disturbance, and anxiety Plan The patient is an elderly female with a past history of schizoaffective disorder bipolar type, cognitive impairment and several medical comorbidities who was initially admitted for psychotic decompensation and needed to be transferred to Medicine due to sepsis. She was medically cleared transferring back into this facility for continuation of care. Plan 1. Referral for guardianship since the patient is demented. 2. The patient has a hearing for guardianship on March 12. 3. The patient had been chronically noncompliant so we change to Zyprexa that she had been compliant in the last days. She had been more psychotic and aggressive. We are increasing Zyprexa to 10 mg p.o. q.h.s. on February 28. 03/02/24 inc hs olanz\zapine to 15mg - room change to decrease disruption to other patients 03/03/24 ongoing treatment due to affective lability and dementia Patient educated on: medication risk/benefits Informed Consent: understands (says ok with olanzapine) Reason for continued inpatient stay Substantial Risk for: harm to others, rapid decompensation and med/psych decompensation Time Spent With Patient Time: Total time managing care of this patient today ____ minutes.
[2024-03-03 20:00] VITALS: BP 104/52; PULSE 60; RESP 16; TEMP 36.5; O2SAT 95
[2024-03-03] MEDS: risperiDONE 1 MG TABLET PO (20:51)
[2024-03-03] MEDS: traZODone HCL 50 MG TABLET PO (20:51)
[2024-03-04 08:50] VITALS: BP 115/52; PULSE 67; RESP 18; TEMP 36.1; O2SAT 96
[2024-03-04] MEDS: amLODIPine Besylate 5 MG TABLET PO (08:50)
[2024-03-04] MEDS: Atorvastatin Calcium 20 MG TABLET PO (08:50)
[2024-03-04] MEDS: Fludrocortisone Acetate 0.1 MG TABLET PO ×2 (08:50→20:41)
[2024-03-04] MEDS: predniSONE 5 MG TABLET PO (08:50)
[2024-03-04] MEDS: Cholecalciferol (Vitamin D3) 25 MCG TABLET PO (08:51)
[2024-03-04] MEDS: predniSONE 1 MG TABLET PO (08:51)
--- NOTE | 2024-03-04 12:08 | P.PNPSI_ITS ---
Subjective Subjective Date of Service: 03/04/24 Reason For Visit: dementia Subjective Notes: Conditional Voluntary Healthcare Proxy: Yes Interim History: The nursing staff reported the patient needed Zydis p.r.n. and Risperdal p.r.n. for agitation. She slept 7 hours. Last Monday she needed to be chemically restrained due to agitation. On interview the patient denies new symptoms, we are ordering a new UA. I am increasing Zyprexa to 15 mg p.o. q.h.s.. Mental Status Exam Mental Status Exam Patient Appearance: Appropriate and Unkempt Patient Orientation: Person and Situation Level of Consciousness: Awake and Appropriate Patient Behavior: Guarded and Passive Mood Description: Withdrawn Affect Description: Constricted Patient Cognition Impaired: Yes Ability to Follow Directions: Good Speech Pattern: Clear Hallucinations: None Delusions: Paranoid Ideation and Ideas of Reference Thought Process: Distracted and Slowed Thinking Thought Content: positive for [place] and positive for Poverty of Content Judgement: Poor Diagnostics Vital Signs (24Hr): Vital Signs - 24 hr 03/03/24 20:00 03/04/24 08:50 Temperature 97.7 F 97 F Pulse Rate 60 67 Respiratory Rate 16 18 Blood Pressure 104/52 L 115/52 L Pulse Oximetry 95 96 Oxygen Delivery Method Room Air BMI result Body Mass Index 23.7 Labs 02/01/24 08:26 Medications Medications Current Medications Acetaminophen (Acetaminophen 325 Mg Tablet) 650 mg PO Q6H PRN PRN Reason: Headache/Pain Mild Scale (1-3) Last Admin: 02/28/24 00:51 Dose: 650 mg Al Hydroxide/Mg Hydroxide (Magnesium Hydrox/Alum Hydrox 30 Ml Oral.Susp) 30 ml PO Q6H PRN PRN Reason: Heartburn/Nausea Amlodipine Besylate (Amlodipine Besylate 5 Mg Tablet) 5 mg PO DAILY DORIE; Protocol Last Admin: 03/04/24 08:50 Dose: 5 mg Atorvastatin Calcium (Atorvastatin Calcium 20 Mg Tablet) 20 mg PO DAILY DORIE Last Admin: 03/04/24 08:50 Dose: 20 mg Benzocaine (Benzocaine 20 % Oral Gel 9 Gm Tube) 1 appl MUCOUS MEM QID PRN; Protocol PRN Reason: Pain, Mild (Pain Scale 1-3) Clozapine (Clozapine 25 Mg Tablet) 25 mg PO BEDTIME DORIE Fludrocortisone Acetate (Fludrocortisone Acetate 0.1 Mg Tablet) 0.1 mg PO BID [facility] Last Admin: 03/04/24 08:50 Dose: 0.1 mg Magnesium Hydroxide (Milk Of Magnesia 30 Ml Oral.Susp) 30 ml PO DAILY PRN PRN Reason: Constipation Olanzapine (Olanzapine Odt 10 Mg Tab.Rapdis) 10 mg TRANSLINGU BID PRN PRN Reason: agitation Last Admin: 03/03/24 09:01 Dose: 10 mg Olanzapine (Olanzapine Odt 10 Mg Tab.Rapdis) 10 mg TRANSLINGU BEDTIME [facility] Last Admin: 03/03/24 20:51 Dose: 10 mg Prednisone (Prednisone 1 Mg Tablet) 1 mg PO DAILY [facility] Last Admin: 03/04/24 08:51 Dose: 1 mg Prednisone (Prednisone 5 Mg Tablet) 5 mg PO DAILY [facility] Last Admin: 03/04/24 08:50 Dose: 5 mg Risperidone (Risperidone 1 Mg Tablet) 1 mg PO TID PRN PRN Reason: psychosis/agitation Last Admin: 03/03/24 20:51 Dose: 1 mg Senna (Sennosides 8.6 Mg Tablet) 17.2 mg PO DAILY [facility] Last Admin: 03/04/24 08:53 Dose: Not Given Trazodone HCl (Trazodone Hcl 50 Mg Tablet) 50 mg PO BEDTIME MRX1 PRN PRN Reason: Insomnia Last Admin: 03/03/24 20:51 Dose: 50 mg Vitamin D (Cholecalciferol (Vitamin D3) 25 Mcg Tablet) 25 mcg PO DAILY [facility] Last Admin: 03/04/24 08:51 Dose: 25 mcg Allergies Allergies Allergy/AdvReac Type Severity Reaction Status Date / Time No Known Allergies Allergy Verified 12/25/23 17:04 Assessment & Plan Assessment & Plan (1) Schizoaffective disorder, depressive type: Status: Acute Code(s): F25.1 - Schizoaffective disorder, depressive type (2) Dementia: Status: Acute Code(s): F03.90 - Unspecified dementia, unspecified severity, without behavioral disturbance, psychotic disturbance, mood disturbance, and anxiety Plan The patient is an elderly female with a past history of schizoaffective disorder bipolar type, cognitive impairment and several medical comorbidities who was initially admitted for psychotic decompensation and needed to be transferred to Medicine due to sepsis. She was medically cleared transferring back into this facility for continuation of care. Plan 1. Referral for guardianship since the patient is demented. 2. The patient has a hearing for guardianship on March 12. 3. The patient had been chronically noncompliant so we change to Zyprexa that she had been compliant in the last days. She had been more psychotic and aggressive. We are increasing Zyprexa to 10 mg p.o. q.h.s. on February 28. 4. Zyprexa is increased up to 15 mg p.o. q.h.s. on March 04. 5. U/A ordered on Mar 04 Reason for continued inpatient stay Substantial Risk for: inability to function, rapid decompensation and med/psych decompensation Time Spent With Patient Time: Total time managing care of this patient today _20___ minutes.
[2024-03-04 13:06] LABS: Appearance Urine Clear; Color Urine Yellow; Glucose Urine UA Negative (Negative); Leukocyte Esterase Urine Small (1+) (Negative); Nitrite Urine Negative (Negative); Specific Gravity - Urine 1.025 (1.005-1.025); UMIC TRIGGER UACC YES; Urine Blood Trace (Negative); Urine Ketones Negative (Negative); Urine Protein Negative (Neg-Trace)
[2024-03-04 13:09] LABS: Bacteria Urine Trace (None Seen); Hyaline Casts Urine 0-2 /LPF (0-2); UACC Culture Trigger YES; WBC Urine 21-50 /HPF (0-5)
[2024-03-04 19:51] VITALS: BP 121/58; PULSE 58; TEMP 36.9; O2SAT 97
[2024-03-04] MEDS: traZODone HCL 50 MG TABLET PO (20:40)
[2024-03-04] MEDS: OLANZapine ODT 10 MG TAB.RAPDIS 15 MG TRANSLINGU (20:40)
[2024-03-04] MEDS: risperiDONE 1 MG TABLET PO (20:41)
[2024-03-05 08:32] LABS: Neut%MD 43.5 %; Neutrophils Absolute Auto 3.3 x10*3/uL (2.0-8.3); WBCANC 7.5 X10*3/uL
[2024-03-05 09:09] VITALS: BP 125/59; PULSE 54; RESP 16; TEMP 36.1; O2SAT 95
[2024-03-05] MEDS: amLODIPine Besylate 5 MG TABLET PO (09:11)
[2024-03-05] MEDS: Cholecalciferol (Vitamin D3) 25 MCG TABLET PO (09:11)
[2024-03-05] MEDS: predniSONE 1 MG TABLET PO (09:11)
[2024-03-05] MEDS: predniSONE 5 MG TABLET PO (09:11)
[2024-03-05] MEDS: Atorvastatin Calcium 20 MG TABLET PO (09:11)
[2024-03-05] MEDS: Sulfamethox/Trimeth 800/160 TABLET 1 TAB PO ×2 (09:11→20:38)
[2024-03-05] MEDS: Fludrocortisone Acetate 0.1 MG TABLET PO ×2 (09:11→20:38)
--- NOTE | 2024-03-05 11:59 | P.PNPSI_ITS ---
Subjective Subjective Date of Service: 03/05/24 Reason For Visit: dementia Subjective Notes: Conditional Voluntary Interim History: The nursing staff reported the patient was withdrawn slept 7 hours. Her UA came back positive and we start her on Bactrim, we are waiting for the culture. On interview the patient denies new symptoms it was clear that the patient was agitated since she had a UTI. She was on delirium. Mental Status Exam Mental Status Exam Patient Appearance: Appropriate Patient Orientation: Person and Situation Level of Consciousness: Awake Patient Behavior: Guarded and Passive Mood Description: Withdrawn Affect Description: Constricted Patient Cognition Impaired: Yes Ability to Follow Directions: Good Speech Pattern: Clear Hallucinations: None Delusions: Paranoid Ideation and Ideas of Reference Thought Process: Distracted and Slowed Thinking Thought Content: positive for [place] and positive for Poverty of Content Judgement: Fair Diagnostics Vital Signs (24Hr): Vital Signs - 24 hr 03/04/24 19:51 03/05/24 09:09 Temperature 98.5 F 97 F Pulse Rate 58 54 Respiratory Rate 16 Blood Pressure 121/58 L 125/59 L Pulse Oximetry 97 95 Oxygen Delivery Method Room Air Room Air BMI result Body Mass Index 23.7 Labs 02/01/24 08:26 Labs: Laboratory Results - last 48 hr 03/04/24 03/05/24 12:36 08:22 Absolute Neuts (auto) 3.3 Urine Color Yellow Urine Appearance Clear Urine pH 5.0 Ur Specific [place] 1.025 Urine Protein Negative Urine Glucose (UA) Negative Urine Ketones Negative Urine Blood Trace H Urine Nitrite Negative Ur Leukocyte Esterase Small (1+) H Urine RBC 6-10 H Urine WBC 21-50 H Ur Squamous Epith Cells 6-10 Urine Bacteria Trace Hyaline Casts 0-2 Medications Medications Current Medications Acetaminophen (Acetaminophen 325 Mg Tablet) 650 mg PO Q6H PRN PRN Reason: Headache/Pain Mild Scale (1-3) Last Admin: 02/28/24 00:51 Dose: 650 mg Al Hydroxide/Mg Hydroxide (Magnesium Hydrox/Alum Hydrox 30 Ml Oral.Susp) 30 ml PO Q6H PRN PRN Reason: Heartburn/Nausea Amlodipine Besylate (Amlodipine Besylate 5 Mg Tablet) 5 mg PO DAILY DORIE; Protocol Last Admin: 03/05/24 09:11 Dose: 5 mg Atorvastatin Calcium (Atorvastatin Calcium 20 Mg Tablet) 20 mg PO DAILY [facility] Last Admin: 03/05/24 09:11 Dose: 20 mg Benzocaine (Benzocaine 20 % Oral Gel 9 Gm Tube) 1 appl MUCOUS MEM QID PRN; Protocol PRN Reason: Pain, Mild (Pain Scale 1-3) Clozapine (Clozapine 25 Mg Tablet) 25 mg PO BEDTIME [facility] Fludrocortisone Acetate (Fludrocortisone Acetate 0.1 Mg Tablet) 0.1 mg PO BID [facility] Last Admin: 03/05/24 09:11 Dose: 0.1 mg Magnesium Hydroxide (Milk Of Magnesia 30 Ml Oral.Susp) 30 ml PO DAILY PRN PRN Reason: Constipation Olanzapine (Olanzapine Odt 10 Mg Tab.Rapdis) 10 mg TRANSLINGU BID PRN PRN Reason: agitation Last Admin: 03/03/24 09:01 Dose: 10 mg Olanzapine (Olanzapine Odt 10 Mg Tab.Rapdis) 15 mg TRANSLINGU BEDTIME [facility] Last Admin: 03/04/24 20:40 Dose: 15 mg Prednisone (Prednisone 1 Mg Tablet) 1 mg PO DAILY [facility] Last Admin: 03/05/24 09:11 Dose: 1 mg Prednisone (Prednisone 5 Mg Tablet) 5 mg PO DAILY [facility] Last Admin: 03/05/24 09:11 Dose: 5 mg Risperidone (Risperidone 1 Mg Tablet) 1 mg PO TID PRN PRN Reason: psychosis/agitation Last Admin: 03/04/24 20:41 Dose: 1 mg Senna (Sennosides 8.6 Mg Tablet) 17.2 mg PO DAILY [facility] Last Admin: 03/05/24 09:12 Dose: Not Given Trazodone HCl (Trazodone Hcl 50 Mg Tablet) 50 mg PO BEDTIME MRX1 PRN PRN Reason: Insomnia Last Admin: 03/04/24 20:40 Dose: 50 mg Trimethoprim/Sulfamethoxazole (Sulfamethox/Trimeth 800/160 Tablet) 1 tab PO Q12H [facility] Last Admin: 03/05/24 09:11 Dose: 1 tab Vitamin D (Cholecalciferol (Vitamin D3) 25 Mcg Tablet) 25 mcg PO DAILY [facility] Last Admin: 03/05/24 09:11 Dose: 25 mcg Allergies Allergies Allergy/AdvReac Type Severity Reaction Status Date / Time No Known Allergies Allergy Verified 12/25/23 17:04 Assessment & Plan Assessment & Plan (1) Schizoaffective disorder, depressive type: Status: Acute Code(s): F25.1 - Schizoaffective disorder, depressive type (2) Dementia: Status: Acute Code(s): F03.90 - Unspecified dementia, unspecified severity, without behavioral disturbance, psychotic disturbance, mood disturbance, and anxiety Plan The patient is an elderly female with a past history of schizoaffective disorder bipolar type, cognitive impairment and several medical comorbidities who was initially admitted for psychotic decompensation and needed to be transferred to Medicine due to sepsis. She was medically cleared transferring back into this facility for continuation of care. Plan 1. Referral for guardianship since the patient is demented. 2. The patient has a hearing for guardianship on March 12. 3. The patient had been chronically noncompliant so we change to Zyprexa that she had been compliant in the last days. She had been more psychotic and aggressive. We are increasing Zyprexa to 10 mg p.o. q.h.s. on February 28. 4. Zyprexa is increased up to 15 mg p.o. q.h.s. on March 04. 5. U/A ordered on Mar 04 and it came back positive she has had been started on Bactrim DS. We are waiting on the culture Reason for continued inpatient stay Substantial Risk for: inability to function, rapid decompensation and med/psych decompensation Time Spent With Patient Time: Total time managing care of this patient today __20__ minutes.
[2024-03-05 19:52] VITALS: BP 107/52; PULSE 64; RESP 16; TEMP 36.1; O2SAT 95
[2024-03-05] MEDS: OLANZapine ODT 10 MG TAB.RAPDIS 15 MG TRANSLINGU (20:37)
[2024-03-06 08:05] VITALS: BP 138/62; PULSE 74; RESP 18; TEMP 36.3; O2SAT 98
[2024-03-06] MEDS: predniSONE 5 MG TABLET PO (08:07)
[2024-03-06] MEDS: amLODIPine Besylate 5 MG TABLET PO (08:07)
[2024-03-06] MEDS: predniSONE 1 MG TABLET PO (08:07)
[2024-03-06] MEDS: Sulfamethox/Trimeth 800/160 TABLET 1 TAB PO ×2 (08:07→19:56)
[2024-03-06] MEDS: Fludrocortisone Acetate 0.1 MG TABLET PO ×2 (08:07→23:23)
[2024-03-06] MEDS: Cholecalciferol (Vitamin D3) 25 MCG TABLET PO (08:07)
[2024-03-06] MEDS: Atorvastatin Calcium 20 MG TABLET PO (08:07)
--- NOTE | 2024-03-06 12:45 | P.PNPSI_ITS ---
Subjective Subjective Date of Service: 03/06/24 Reason For Visit: dementia Interim History: Nursing staff reported the patient slept 7 hours, she has been compliant with treatment. On interview the patient denies new symptoms, she is on Bactrim for UTI Mental Status Exam Mental Status Exam Patient Appearance: Appropriate Patient Orientation: Person Level of Consciousness: Awake Patient Behavior: Guarded and Passive Mood Description: Withdrawn Affect Description: Constricted Patient Cognition Impaired: Yes Ability to Follow Directions: Good Speech Pattern: Clear Hallucinations: None Delusions: Ideas of Reference Thought Process: Distracted and Slowed Thinking Thought Content: positive for [place] and positive for Poverty of Content Judgement: Poor Diagnostics Vital Signs (24Hr): Vital Signs - 24 hr 03/05/24 19:52 03/06/24 08:05 Temperature 96.9 F 97.4 F Pulse Rate 64 74 Respiratory Rate 16 18 Blood Pressure 107/52 L 138/62 Pulse Oximetry 95 98 Oxygen Delivery Method Room Air Room Air BMI result Body Mass Index 23.7 Labs 02/01/24 08:26 Labs: Laboratory Results - last 48 hr 03/04/24 03/05/24 12:36 08:22 Absolute Neuts (auto) 3.3 Urine Color Yellow Urine Appearance Clear Urine pH 5.0 Ur Specific [place] 1.025 Urine Protein Negative Urine Glucose (UA) Negative Urine Ketones Negative Urine Blood Trace H Urine Nitrite Negative Ur Leukocyte Esterase Small (1+) H Urine RBC 6-10 H Urine WBC 21-50 H Ur Squamous Epith Cells 6-10 Urine Bacteria Trace Hyaline Casts 0-2 Medications Medications Current Medications Acetaminophen (Acetaminophen 325 Mg Tablet) 650 mg PO Q6H PRN PRN Reason: Headache/Pain Mild Scale (1-3) Last Admin: 02/28/24 00:51 Dose: 650 mg Al Hydroxide/Mg Hydroxide (Magnesium Hydrox/Alum Hydrox 30 Ml Oral.Susp) 30 ml PO Q6H PRN PRN Reason: Heartburn/Nausea Amlodipine Besylate (Amlodipine Besylate 5 Mg Tablet) 5 mg PO DAILY DORIE; Protocol Last Admin: 03/06/24 08:07 Dose: 5 mg Atorvastatin Calcium (Atorvastatin Calcium 20 Mg Tablet) 20 mg PO DAILY DORIE Last Admin: 03/06/24 08:07 Dose: 20 mg Benzocaine (Benzocaine 20 % Oral Gel 9 Gm Tube) 1 appl MUCOUS MEM QID PRN; Protocol PRN Reason: Pain, Mild (Pain Scale 1-3) Clozapine (Clozapine 25 Mg Tablet) 25 mg PO BEDTIME [facility] Fludrocortisone Acetate (Fludrocortisone Acetate 0.1 Mg Tablet) 0.1 mg PO BID [facility] Last Admin: 03/06/24 08:07 Dose: 0.1 mg Magnesium Hydroxide (Milk Of Magnesia 30 Ml Oral.Susp) 30 ml PO DAILY PRN PRN Reason: Constipation Olanzapine (Olanzapine Odt 10 Mg Tab.Rapdis) 10 mg TRANSLINGU BID PRN PRN Reason: agitation Last Admin: 03/03/24 09:01 Dose: 10 mg Olanzapine (Olanzapine Odt 10 Mg Tab.Rapdis) 15 mg TRANSLINGU BEDTIME [facility] Last Admin: 03/05/24 20:37 Dose: 15 mg Prednisone (Prednisone 1 Mg Tablet) 1 mg PO DAILY [facility] Last Admin: 03/06/24 08:07 Dose: 1 mg Prednisone (Prednisone 5 Mg Tablet) 5 mg PO DAILY [facility] Last Admin: 03/06/24 08:07 Dose: 5 mg Risperidone (Risperidone 1 Mg Tablet) 1 mg PO TID PRN PRN Reason: psychosis/agitation Last Admin: 03/04/24 20:41 Dose: 1 mg Senna (Sennosides 8.6 Mg Tablet) 17.2 mg PO DAILY [facility] Last Admin: 03/06/24 08:10 Dose: Not Given Trazodone HCl (Trazodone Hcl 50 Mg Tablet) 50 mg PO BEDTIME MRX1 PRN PRN Reason: Insomnia Last Admin: 03/04/24 20:40 Dose: 50 mg Trimethoprim/Sulfamethoxazole (Sulfamethox/Trimeth 800/160 Tablet) 1 tab PO Q12H [facility] Last Admin: 03/06/24 08:07 Dose: 1 tab Vitamin D (Cholecalciferol (Vitamin D3) 25 Mcg Tablet) 25 mcg PO DAILY [facility] Last Admin: 03/06/24 08:07 Dose: 25 mcg Allergies Allergies Allergy/AdvReac Type Severity Reaction Status Date / Time No Known Allergies Allergy Verified 12/25/23 17:04 Assessment & Plan Assessment & Plan (1) Schizoaffective disorder, depressive type: Status: Acute Code(s): F25.1 - Schizoaffective disorder, depressive type (2) Dementia: Status: Acute Code(s): F03.90 - Unspecified dementia, unspecified severity, without behavioral disturbance, psychotic disturbance, mood disturbance, and anxiety Plan The patient is an elderly female with a past history of schizoaffective disorder bipolar type, cognitive impairment and several medical comorbidities who was initially admitted for psychotic decompensation and needed to be transferred to Medicine due to sepsis. She was medically cleared transferring back into this facility for continuation of care. 02/21/24: Continue to encourage treatment. 02/22 continue tx. 02/23 Continue current regime and plan of care 02/24 Continue current regime and plan of care 02/28/24 Patient highly irritable, paranoid; started screaming at roommate to get out of her room and rushed at a peer; intrusive to this peers. Oxidation Operator tried to discuss this with patient who was guarded and angry. Said she was taking her medication and irritated when commercial loan underwriter discussed otherwise. Patient seemed to agreed to get back on clozapine which was restarted Plan 1. We will keep on Zyprexa at night. 2. Waiting for placement. Reason for continued inpatient stay Substantial Risk for: inability to function, rapid decompensation and med/psych decompensation Time Spent With Patient Time: Total time managing care of this patient today __20__ minutes.
[2024-03-06] MEDS: traZODone HCL 50 MG TABLET PO (19:55)
[2024-03-06] MEDS: risperiDONE 1 MG TABLET PO (19:56)
[2024-03-06] MEDS: OLANZapine ODT 10 MG TAB.RAPDIS 15 MG TRANSLINGU (19:56)
[2024-03-06 20:00] VITALS: BP 130/67; PULSE 60; RESP 16; TEMP 37.1; O2SAT 98
[2024-03-07 08:00] VITALS: BP 116/57; PULSE 57; RESP 18; TEMP 36.8; O2SAT 97
[2024-03-07] MEDS: predniSONE 1 MG TABLET PO (09:20)
[2024-03-07] MEDS: Sulfamethox/Trimeth 800/160 TABLET 1 TAB PO ×2 (09:20→20:24)
[2024-03-07] MEDS: Cholecalciferol (Vitamin D3) 25 MCG TABLET PO (09:20)
[2024-03-07] MEDS: Fludrocortisone Acetate 0.1 MG TABLET PO ×2 (09:20→20:24)
[2024-03-07] MEDS: predniSONE 5 MG TABLET PO (09:20)
[2024-03-07] MEDS: Atorvastatin Calcium 20 MG TABLET PO (09:20)
--- NOTE | 2024-03-07 09:34 | PC.NURSE ---
AM Amlodipine held d/t decreased BP 116/57, P 57. No symptoms observed. Provider DR Diamond notified by taya. Will continue to monitor.
--- NOTE | 2024-03-07 11:15 | HO.PSYCHPN ---
Subjective Subjective Date of Service: 03/07/24 Reason For Visit: dementia Subjective Notes: Conditional Voluntary Interim History: The nursing staff reported the patient had been isolative in her room compliant with her treatment. She slept well. The social sciences research scientist reported the guardianship hearing is tomorrow. On interview the patient denies new symptoms. Still internally preoccupied and psychotic Mental Status Exam Mental Status Exam Patient Appearance: Appropriate Patient Orientation: Person and Situation Level of Consciousness: Awake and Appropriate Patient Behavior: Guarded and Passive Mood Description: Withdrawn Affect Description: Constricted Patient Cognition Impaired: Yes Ability to Follow Directions: Good Speech Pattern: Clear Hallucinations: None Delusions: Not Present Thought Process: Distracted and Slowed Thinking Thought Content: positive for [place] and positive for Poverty of Content Judgement: Fair Diagnostics Vital Signs (24Hr): Vital Signs - 24 hr 03/06/24 20:00 03/07/24 08:00 Temperature 98.7 F 98.2 F Pulse Rate 60 57 Respiratory Rate 16 18 Blood Pressure 130/67 116/57 L Pulse Oximetry 98 97 Oxygen Delivery Method Room Air Room Air BMI result Body Mass Index 23.7 Labs 02/01/24 08:26 Medications Medications Current Medications Acetaminophen (Acetaminophen 325 Mg Tablet) 650 mg PO Q6H PRN PRN Reason: Headache/Pain Mild Scale (1-3) Last Admin: 02/28/24 00:51 Dose: 650 mg Al Hydroxide/Mg Hydroxide (Magnesium Hydrox/Alum Hydrox 30 Ml Oral.Susp) 30 ml PO Q6H PRN PRN Reason: Heartburn/Nausea Amlodipine Besylate (Amlodipine Besylate 5 Mg Tablet) 5 mg PO DAILY [facility]; Protocol Last Admin: 03/07/24 09:27 Dose: Not Given Atorvastatin Calcium (Atorvastatin Calcium 20 Mg Tablet) 20 mg PO DAILY [facility] Last Admin: 03/07/24 09:20 Dose: 20 mg Benzocaine (Benzocaine 20 % Oral Gel 9 Gm Tube) 1 appl MUCOUS MEM QID PRN; Protocol PRN Reason: Pain, Mild (Pain Scale 1-3) Clozapine (Clozapine 25 Mg Tablet) 25 mg PO BEDTIME [facility] Fludrocortisone Acetate (Fludrocortisone Acetate 0.1 Mg Tablet) 0.1 mg PO BID [facility] Last Admin: 03/07/24 09:20 Dose: 0.1 mg Magnesium Hydroxide (Milk Of Magnesia 30 Ml Oral.Susp) 30 ml PO DAILY PRN PRN Reason: Constipation Olanzapine (Olanzapine Odt 10 Mg Tab.Rapdis) 10 mg TRANSLINGU BID PRN PRN Reason: agitation Last Admin: 03/03/24 09:01 Dose: 10 mg Olanzapine (Olanzapine Odt 10 Mg Tab.Rapdis) 15 mg TRANSLINGU BEDTIME [facility] Last Admin: 03/06/24 19:56 Dose: 15 mg Prednisone (Prednisone 1 Mg Tablet) 1 mg PO DAILY [facility] Last Admin: 03/07/24 09:20 Dose: 1 mg Prednisone (Prednisone 5 Mg Tablet) 5 mg PO DAILY [facility] Last Admin: 03/07/24 09:20 Dose: 5 mg Risperidone (Risperidone 1 Mg Tablet) 1 mg PO TID PRN PRN Reason: psychosis/agitation Last Admin: 03/06/24 19:56 Dose: 1 mg Senna (Sennosides 8.6 Mg Tablet) 17.2 mg PO DAILY [facility] Last Admin: 03/07/24 09:23 Dose: Not Given Trazodone HCl (Trazodone Hcl 50 Mg Tablet) 50 mg PO BEDTIME MRX1 PRN PRN Reason: Insomnia Last Admin: 03/06/24 19:55 Dose: 50 mg Trimethoprim/Sulfamethoxazole (Sulfamethox/Trimeth 800/160 Tablet) 1 tab PO Q12H [facility] Last Admin: 03/07/24 09:20 Dose: 1 tab Vitamin D (Cholecalciferol (Vitamin D3) 25 Mcg Tablet) 25 mcg PO DAILY [facility] Last Admin: 03/07/24 09:20 Dose: 25 mcg Allergies Allergies Allergy/AdvReac Type Severity Reaction Status Date / Time No Known Allergies Allergy Verified 12/25/23 17:04 Assessment & Plan Assessment & Plan (1) Schizoaffective disorder, depressive type: Status: Acute Code(s): F25.1 - Schizoaffective disorder, depressive type (2) Dementia: Status: Acute Code(s): F03.90 - Unspecified dementia, unspecified severity, without behavioral disturbance, psychotic disturbance, mood disturbance, and anxiety Plan The patient is an elderly female with a past history of schizoaffective disorder bipolar type, cognitive impairment and several medical comorbidities who was initially admitted for psychotic decompensation and needed to be transferred to Medicine due to sepsis. She was medically cleared transferring back into this facility for continuation of care. 02/21/24: Continue to encourage treatment. 02/22 continue tx. 02/23 Continue current regime and plan of care 02/24 Continue current regime and plan of care 02/28/24 Patient highly irritable, paranoid; started screaming at roommate to get out of her room and rushed at a peer; intrusive to this peers. Wedding Makeup Artist tried to discuss this with patient who was guarded and angry. Said she was taking her medication and irritated when com writer discussed otherwise. Patient seemed to agreed to get back on clozapine which was restarted Plan 1. We will keep on Zyprexa at night. 2. Waiting for placement. Reason for continued inpatient stay Substantial Risk for: inability to function, rapid decompensation and med/psych decompensation Time Spent With Patient Time: Total time managing care of this patient today __20__ minutes.
[2024-03-07] MEDS: risperiDONE 1 MG TABLET PO (16:50)
[2024-03-07 20:00] VITALS: BP 97/50; PULSE 65; RESP 18; TEMP 36.1; O2SAT 95
[2024-03-07] MEDS: OLANZapine ODT 10 MG TAB.RAPDIS 15 MG TRANSLINGU (20:24)
[2024-03-07] MEDS: traZODone HCL 50 MG TABLET PO (20:24)
[2024-03-08] MEDS: Acetaminophen 325 MG TABLET 650 MG PO (02:00)
[2024-03-08] MEDS: risperiDONE 1 MG TABLET PO ×2 (02:00→21:22)
[2024-03-08 08:58] VITALS: BP 111/56; PULSE 59; RESP 15; TEMP 36.8; O2SAT 97
[2024-03-08] MEDS: predniSONE 1 MG TABLET PO (08:59)
[2024-03-08] MEDS: Cholecalciferol (Vitamin D3) 25 MCG TABLET PO (08:59)
[2024-03-08] MEDS: predniSONE 5 MG TABLET PO (08:59)
[2024-03-08] MEDS: Sulfamethox/Trimeth 800/160 TABLET 1 TAB PO ×2 (08:59→21:21)
[2024-03-08] MEDS: Atorvastatin Calcium 20 MG TABLET PO (08:59)
[2024-03-08] MEDS: Fludrocortisone Acetate 0.1 MG TABLET PO ×2 (08:59→21:21)
[2024-03-08] MEDS: amLODIPine Besylate 5 MG TABLET PO (08:59)
--- NOTE | 2024-03-08 14:59 | P.PNPSI_ITS ---
Subjective Subjective Date of Service: 03/08/24 Reason For Visit: dementia Subjective Notes: Conditional Voluntary Healthcare Proxy: Yes Interim History: The nursing staff reported the patient had been isolative pleasant compliant with medication. She slept 8 hours and she took p.r.n. Risperdal for auditory hallucinations. On interview the patient denies new symptoms, pleasant cooperative. Mental Status Exam Mental Status Exam Patient Appearance: Appropriate Patient Orientation: Person and Situation Level of Consciousness: Awake Patient Behavior: Guarded and Passive Mood Description: Withdrawn Affect Description: Constricted Patient Cognition Impaired: Yes Ability to Follow Directions: Good Speech Pattern: Clear Hallucinations: None Delusions: Paranoid Ideation Thought Process: Distracted and Slowed Thinking Thought Content: positive for [place] and positive for Poverty of Content Judgement: Fair Diagnostics Vital Signs (24Hr): Vital Signs - 24 hr 03/07/24 20:00 03/08/24 08:58 Temperature 97.0 F 98.2 F Pulse Rate 65 59 Respiratory Rate 18 15 Blood Pressure 97/50 L 111/56 L Pulse Oximetry 95 97 Oxygen Delivery Method Room Air BMI result Body Mass Index 23.7 Labs 02/01/24 08:26 Medications Medications Current Medications Acetaminophen (Acetaminophen 325 Mg Tablet) 650 mg PO Q6H PRN PRN Reason: Headache/Pain Mild Scale (1-3) Last Admin: 03/08/24 02:00 Dose: 650 mg Al Hydroxide/Mg Hydroxide (Magnesium Hydrox/Alum Hydrox 30 Ml Oral.Susp) 30 ml PO Q6H PRN PRN Reason: Heartburn/Nausea Amlodipine Besylate (Amlodipine Besylate 5 Mg Tablet) 5 mg PO DAILY [facility]; Protocol Last Admin: 03/08/24 08:59 Dose: 5 mg Atorvastatin Calcium (Atorvastatin Calcium 20 Mg Tablet) 20 mg PO DAILY [facility] Last Admin: 03/08/24 08:59 Dose: 20 mg Benzocaine (Benzocaine 20 % Oral Gel 9 Gm Tube) 1 appl MUCOUS MEM QID PRN; Protocol PRN Reason: Pain, Mild (Pain Scale 1-3) Clozapine (Clozapine 25 Mg Tablet) 25 mg PO BEDTIME [facility] Fludrocortisone Acetate (Fludrocortisone Acetate 0.1 Mg Tablet) 0.1 mg PO BID [facility] Last Admin: 03/08/24 08:59 Dose: 0.1 mg Magnesium Hydroxide (Milk Of Magnesia 30 Ml Oral.Susp) 30 ml PO DAILY PRN PRN Reason: Constipation Olanzapine (Olanzapine Odt 10 Mg Tab.Rapdis) 10 mg TRANSLINGU BID PRN PRN Reason: agitation Last Admin: 03/03/24 09:01 Dose: 10 mg Olanzapine (Olanzapine Odt 10 Mg Tab.Rapdis) 15 mg TRANSLINGU BEDTIME [facility] Last Admin: 03/07/24 20:24 Dose: 15 mg Prednisone (Prednisone 1 Mg Tablet) 1 mg PO DAILY [facility] Last Admin: 03/08/24 08:59 Dose: 1 mg Prednisone (Prednisone 5 Mg Tablet) 5 mg PO DAILY [facility] Last Admin: 03/08/24 08:59 Dose: 5 mg Risperidone (Risperidone 1 Mg Tablet) 1 mg PO TID PRN PRN Reason: psychosis/agitation Last Admin: 03/08/24 02:00 Dose: 1 mg Senna (Sennosides 8.6 Mg Tablet) 17.2 mg PO DAILY [facility] Last Admin: 03/08/24 09:00 Dose: Not Given Trazodone HCl (Trazodone Hcl 50 Mg Tablet) 50 mg PO BEDTIME MRX1 PRN PRN Reason: Insomnia Last Admin: 03/07/24 20:24 Dose: 50 mg Trimethoprim/Sulfamethoxazole (Sulfamethox/Trimeth 800/160 Tablet) 1 tab PO Q12H [facility] Last Admin: 03/08/24 08:59 Dose: 1 tab Vitamin D (Cholecalciferol (Vitamin D3) 25 Mcg Tablet) 25 mcg PO DAILY [facility] Last Admin: 03/08/24 08:59 Dose: 25 mcg Allergies Allergies Allergy/AdvReac Type Severity Reaction Status Date / Time No Known Allergies Allergy Verified 12/25/23 17:04 Assessment & Plan Assessment & Plan (1) Schizoaffective disorder, depressive type: Status: Acute Code(s): F25.1 - Schizoaffective disorder, depressive type (2) Dementia: Status: Acute Code(s): F03.90 - Unspecified dementia, unspecified severity, without behavioral disturbance, psychotic disturbance, mood disturbance, and anxiety Plan The patient is an elderly female with a past history of schizoaffective disorder bipolar type, cognitive impairment and several medical comorbidities who was initially admitted for psychotic decompensation and needed to be transferred to Medicine due to sepsis. She was medically cleared transferring back into this facility for continuation of care. 02/21/24: Continue to encourage treatment. 02/22 continue tx. 02/23 Continue current regime and plan of care 02/24 Continue current regime and plan of care 02/28/24 Patient highly irritable, paranoid; started screaming at roommate to get out of her room and rushed at a peer; intrusive to this peers. Windows Security Analyst tried to discuss this with patient who was guarded and angry. Said she was taking her medication and irritated when typewriters functional tester discussed otherwise. Patient seemed to agreed to get back on clozapine which was restarted Plan 1. We will keep on Zyprexa at night. 2. Waiting for placement. Reason for continued inpatient stay Substantial Risk for: inability to function, rapid decompensation and med/psych decompensation Time Spent With Patient Time: Total time managing care of this patient today __20__ minutes.
[2024-03-08 20:00] VITALS: BP 127/60; PULSE 77; RESP 18; TEMP 36.5; O2SAT 96
[2024-03-08] MEDS: traZODone HCL 50 MG TABLET PO (21:21)
[2024-03-08] MEDS: OLANZapine ODT 10 MG TAB.RAPDIS 15 MG TRANSLINGU (21:22)
[2024-03-09 08:00] VITALS: BP 130/57; PULSE 61; RESP 18; TEMP 36.2; O2SAT 98
[2024-03-09] MEDS: amLODIPine Besylate 5 MG TABLET PO (08:28)
[2024-03-09] MEDS: Sulfamethox/Trimeth 800/160 TABLET 1 TAB PO ×2 (08:28→20:04)
[2024-03-09] MEDS: Fludrocortisone Acetate 0.1 MG TABLET PO ×2 (08:28→20:04)
[2024-03-09] MEDS: Cholecalciferol (Vitamin D3) 25 MCG TABLET PO (08:28)
[2024-03-09] MEDS: predniSONE 5 MG TABLET PO (08:28)
[2024-03-09] MEDS: Atorvastatin Calcium 20 MG TABLET PO (08:29)
[2024-03-09] MEDS: predniSONE 1 MG TABLET PO (08:29)
--- NOTE | 2024-03-09 13:35 | P.PNPSI_ITS ---
Subjective Subjective Date of Service: 03/09/24 Reason For Visit: dementia Subjective Notes: Conditional Voluntary Interim History: pt slept through the night. She denies any concerns. She denies SI/HI. No aggression towards self or others. taking medications more consistently. Medication Compliance: Intermittent Review of Systems Review of Systems Denies Yes all other systems are reviewed and are negative and Unobtainable due to mental status Mental Status Exam Mental Status Exam Narrative: Pt is alert and oriented; behavior is irritable and aggressive; dressed in casual attire with unkempt hair with marginal hygiene; mood is described good but affect remains constricted and irritable; somewhat glaring eye contact Speech is normal volume, rate and prosody; psychomotor agitation present; thought process is goal directed; Thought content with paranoid delusions; denies any SI/HI. AH and internally preoccupied. Patients insight and judgment impaired. Diagnostics Vital Signs (24Hr): Vital Signs - 24 hr 03/08/24 20:00 03/09/24 08:00 Temperature 97.7 F 97.2 F Pulse Rate 77 61 Respiratory Rate 18 18 Blood Pressure 127/60 130/57 L Pulse Oximetry 96 98 Oxygen Delivery Method Room Air Room Air BMI result Body Mass Index 23.7 Labs 02/01/24 08:26 Medications Medications Current Medications Acetaminophen (Acetaminophen 325 Mg Tablet) 650 mg PO Q6H PRN PRN Reason: Headache/Pain Mild Scale (1-3) Last Admin: 03/08/24 02:00 Dose: 650 mg Al Hydroxide/Mg Hydroxide (Magnesium Hydrox/Alum Hydrox 30 Ml Oral.Susp) 30 ml PO Q6H PRN PRN Reason: Heartburn/Nausea Amlodipine Besylate (Amlodipine Besylate 5 Mg Tablet) 5 mg PO DAILY [facility]; Protocol Last Admin: 03/09/24 08:28 Dose: 5 mg Atorvastatin Calcium (Atorvastatin Calcium 20 Mg Tablet) 20 mg PO DAILY [facility] Last Admin: 03/09/24 08:29 Dose: 20 mg Benzocaine (Benzocaine 20 % Oral Gel 9 Gm Tube) 1 appl MUCOUS MEM QID PRN; Protocol PRN Reason: Pain, Mild (Pain Scale 1-3) Clozapine (Clozapine 25 Mg Tablet) 25 mg PO BEDTIME [facility] Fludrocortisone Acetate (Fludrocortisone Acetate 0.1 Mg Tablet) 0.1 mg PO BID [facility] Last Admin: 03/09/24 08:28 Dose: 0.1 mg Magnesium Hydroxide (Milk Of Magnesia 30 Ml Oral.Susp) 30 ml PO DAILY PRN PRN Reason: Constipation Olanzapine (Olanzapine Odt 10 Mg Tab.Rapdis) 10 mg TRANSLINGU BID PRN PRN Reason: agitation Last Admin: 03/03/24 09:01 Dose: 10 mg Olanzapine (Olanzapine Odt 10 Mg Tab.Rapdis) 15 mg TRANSLINGU BEDTIME [facility] Last Admin: 03/08/24 21:22 Dose: 15 mg Prednisone (Prednisone 1 Mg Tablet) 1 mg PO DAILY [facility] Last Admin: 03/09/24 08:29 Dose: 1 mg Prednisone (Prednisone 5 Mg Tablet) 5 mg PO DAILY [facility] Last Admin: 03/09/24 08:28 Dose: 5 mg Risperidone (Risperidone 1 Mg Tablet) 1 mg PO TID PRN PRN Reason: psychosis/agitation Last Admin: 03/08/24 21:22 Dose: 1 mg Senna (Sennosides 8.6 Mg Tablet) 17.2 mg PO DAILY [facility] Last Admin: 03/09/24 08:29 Dose: Not Given Trazodone HCl (Trazodone Hcl 50 Mg Tablet) 50 mg PO BEDTIME MRX1 PRN PRN Reason: Insomnia Last Admin: 03/08/24 21:21 Dose: 50 mg Trimethoprim/Sulfamethoxazole (Sulfamethox/Trimeth 800/160 Tablet) 1 tab PO Q12H [facility] Last Admin: 03/09/24 08:28 Dose: 1 tab Vitamin D (Cholecalciferol (Vitamin D3) 25 Mcg Tablet) 25 mcg PO DAILY [facility] Last Admin: 03/09/24 08:28 Dose: 25 mcg Allergies Allergies Allergy/AdvReac Type Severity Reaction Status Date / Time No Known Allergies Allergy Verified 12/25/23 17:04 Assessment & Plan Assessment & Plan (1) Schizoaffective disorder, depressive type: Status: Acute Code(s): F25.1 - Schizoaffective disorder, depressive type (2) Dementia: Status: Acute Code(s): F03.90 - Unspecified dementia, unspecified severity, without behavioral disturbance, psychotic disturbance, mood disturbance, and anxiety Plan The patient is an elderly female with a past history of schizoaffective disorder bipolar type, cognitive impairment and several medical comorbidities who was initially admitted for psychotic decompensation and needed to be transferred to Medicine due to sepsis. She was medically cleared transferring back into this facility for continuation of care. 02/21/24: Continue to encourage treatment. 02/22 continue tx. 02/23 Continue current regime and plan of care 02/24 Continue current regime and plan of care 02/28/24 Patient highly irritable, paranoid; started screaming at roommate to get out of her room and rushed at a peer; intrusive to this peers. Project Planner tried to discuss this with patient who was guarded and angry. Said she was taking her medication and irritated when underwriter solicitation director discussed otherwise. Patient seemed to agreed to get back on clozapine which was restarted 03/09- continue tx. Reason for continued inpatient stay Substantial Risk for: inability to function Time Spent With Patient Time: Total time managing care of this patient today ____ minutes.
[2024-03-09 20:00] VITALS: BP 139/69; PULSE 80; RESP 18; TEMP 36.3; O2SAT 96
[2024-03-09] MEDS: traZODone HCL 50 MG TABLET PO (20:04)
[2024-03-09] MEDS: risperiDONE 1 MG TABLET PO (20:04)
[2024-03-09] MEDS: OLANZapine ODT 10 MG TAB.RAPDIS 15 MG TRANSLINGU (20:04)
[2024-03-10] MEDS: Sulfamethox/Trimeth 800/160 TABLET 1 TAB PO ×2 (09:34→21:01)
[2024-03-10] MEDS: Cholecalciferol (Vitamin D3) 25 MCG TABLET PO (09:34)
[2024-03-10] MEDS: predniSONE 5 MG TABLET PO (09:34)
[2024-03-10] MEDS: Fludrocortisone Acetate 0.1 MG TABLET PO ×2 (09:34→21:01)
[2024-03-10 09:35] VITALS: BP 148/65; PULSE 86; RESP 18; TEMP 36.3; O2SAT 99
[2024-03-10] MEDS: amLODIPine Besylate 5 MG TABLET PO (09:36)
[2024-03-10] MEDS: predniSONE 1 MG TABLET PO (09:36)
[2024-03-10] MEDS: Atorvastatin Calcium 20 MG TABLET PO (09:36)
--- NOTE | 2024-03-10 11:34 | HO.PSYCHPN ---
Subjective Subjective Date of Service: 03/10/24 Reason For Visit: dementia Subjective Notes: Conditional Voluntary Interim History: pt slept through the night. She denies any concerns. She was singing this morning. She denies SI/HI. No aggression towards self or others. taking medications more consistently. Review of Systems Review of Systems Denies Yes all other systems are reviewed and are negative and Unobtainable due to mental status Mental Status Exam Mental Status Exam Patient Appearance: Appropriate Patient Orientation: Person and Situation Level of Consciousness: Awake Patient Behavior: Guarded and Passive Mood Description: Withdrawn Affect Description: Constricted Patient Cognition Impaired: Yes Ability to Follow Directions: Good Speech Pattern: Clear Diagnostics Vital Signs (24Hr): Vital Signs - 24 hr 03/09/24 20:00 03/10/24 09:35 Temperature 97.3 F 97.3 F Pulse Rate 80 86 Respiratory Rate 18 18 Blood Pressure 139/69 148/65 H Pulse Oximetry 96 99 Oxygen Delivery Method Room Air Room Air BMI result Body Mass Index 23.7 Labs 02/01/24 08:26 Medications Medications Current Medications Acetaminophen (Acetaminophen 325 Mg Tablet) 650 mg PO Q6H PRN PRN Reason: Headache/Pain Mild Scale (1-3) Last Admin: 03/08/24 02:00 Dose: 650 mg Al Hydroxide/Mg Hydroxide (Magnesium Hydrox/Alum Hydrox 30 Ml Oral.Susp) 30 ml PO Q6H PRN PRN Reason: Heartburn/Nausea Amlodipine Besylate (Amlodipine Besylate 5 Mg Tablet) 5 mg PO DAILY [facility]; Protocol Last Admin: 03/10/24 09:36 Dose: 5 mg Atorvastatin Calcium (Atorvastatin Calcium 20 Mg Tablet) 20 mg PO DAILY [facility] Last Admin: 03/10/24 09:36 Dose: 20 mg Benzocaine (Benzocaine 20 % Oral Gel 9 Gm Tube) 1 appl MUCOUS MEM QID PRN; Protocol PRN Reason: Pain, Mild (Pain Scale 1-3) Clozapine (Clozapine 25 Mg Tablet) 25 mg PO BEDTIME [facility] Fludrocortisone Acetate (Fludrocortisone Acetate 0.1 Mg Tablet) 0.1 mg PO BID [facility] Last Admin: 03/10/24 09:34 Dose: 0.1 mg Magnesium Hydroxide (Milk Of Magnesia 30 Ml Oral.Susp) 30 ml PO DAILY PRN PRN Reason: Constipation Olanzapine (Olanzapine Odt 10 Mg Tab.Rapdis) 10 mg TRANSLINGU BID PRN PRN Reason: agitation Last Admin: 03/03/24 09:01 Dose: 10 mg Olanzapine (Olanzapine Odt 10 Mg Tab.Rapdis) 15 mg TRANSLINGU BEDTIME [facility] Last Admin: 03/09/24 20:04 Dose: 15 mg Prednisone (Prednisone 1 Mg Tablet) 1 mg PO DAILY [facility] Last Admin: 03/10/24 09:36 Dose: 1 mg Prednisone (Prednisone 5 Mg Tablet) 5 mg PO DAILY [facility] Last Admin: 03/10/24 09:34 Dose: 5 mg Risperidone (Risperidone 1 Mg Tablet) 1 mg PO TID PRN PRN Reason: psychosis/agitation Last Admin: 03/09/24 20:04 Dose: 1 mg Senna (Sennosides 8.6 Mg Tablet) 17.2 mg PO DAILY [facility] Last Admin: 03/10/24 10:08 Dose: Not Given Trazodone HCl (Trazodone Hcl 50 Mg Tablet) 50 mg PO BEDTIME MRX1 PRN PRN Reason: Insomnia Last Admin: 03/09/24 20:04 Dose: 50 mg Trimethoprim/Sulfamethoxazole (Sulfamethox/Trimeth 800/160 Tablet) 1 tab PO Q12H [facility] Last Admin: 03/10/24 09:34 Dose: 1 tab Vitamin D (Cholecalciferol (Vitamin D3) 25 Mcg Tablet) 25 mcg PO DAILY [facility] Last Admin: 03/10/24 09:34 Dose: 25 mcg Allergies Allergies Allergy/AdvReac Type Severity Reaction Status Date / Time No Known Allergies Allergy Verified 12/25/23 17:04 Assessment & Plan Assessment & Plan (1) Schizoaffective disorder, depressive type: Status: Acute Code(s): F25.1 - Schizoaffective disorder, depressive type (2) Dementia: Status: Acute Code(s): F03.90 - Unspecified dementia, unspecified severity, without behavioral disturbance, psychotic disturbance, mood disturbance, and anxiety Plan The patient is an elderly female with a past history of schizoaffective disorder bipolar type, cognitive impairment and several medical comorbidities who was initially admitted for psychotic decompensation and needed to be transferred to Medicine due to sepsis. She was medically cleared transferring back into this facility for continuation of care. 02/21/24: Continue to encourage treatment. 02/22 continue tx. 02/23 Continue current regime and plan of care 02/24 Continue current regime and plan of care 02/28/24 Patient highly irritable, paranoid; started screaming at roommate to get out of her room and rushed at a peer; intrusive to this peers. Hot Plate Plywood Press Offbearer tried to discuss this with patient who was guarded and angry. Said she was taking her medication and irritated when brief writer discussed otherwise. Patient seemed to agreed to get back on clozapine which was restarted 03/09- continue tx. 03/10 continue tx. Reason for continued inpatient stay Substantial Risk for: inability to function Time Spent With Patient Time: Total time managing care of this patient today ____ minutes.
[2024-03-10 20:00] VITALS: BP 128/64; PULSE 60; RESP 18; TEMP 36.8; O2SAT 97
[2024-03-10] MEDS: traZODone HCL 50 MG TABLET PO (21:01)
[2024-03-10] MEDS: OLANZapine ODT 10 MG TAB.RAPDIS 15 MG TRANSLINGU (21:01)
[2024-03-11 08:00] VITALS: BP 118/58; PULSE 51; RESP 18; TEMP 36.1; O2SAT 95
[2024-03-11] MEDS: Sulfamethox/Trimeth 800/160 TABLET 1 TAB PO ×2 (08:22→20:05)
[2024-03-11] MEDS: Cholecalciferol (Vitamin D3) 25 MCG TABLET PO (08:23)
[2024-03-11] MEDS: predniSONE 1 MG TABLET PO (08:23)
[2024-03-11] MEDS: Atorvastatin Calcium 20 MG TABLET PO (08:23)
[2024-03-11] MEDS: Fludrocortisone Acetate 0.1 MG TABLET PO ×2 (08:23→20:05)
[2024-03-11] MEDS: predniSONE 5 MG TABLET PO (08:23)
[2024-03-11 08:38] VITALS: BP 118/58
--- NOTE | 2024-03-11 12:27 | P.PNPSI_ITS ---
Subjective Subjective Date of Service: 03/11/24 Reason For Visit: dementia Subjective Notes: Conditional Voluntary Interim History: The nursing staff reported the patient had been isolative, slept 8 hours compliant with medications. The social media editor reported that we are going to have the guardianship hearing for tomorrow. On interview the patient denies new symptoms, waiting for placement. Mental Status Exam Mental Status Exam Patient Appearance: Well Grooomed Patient Orientation: Person and Situation Level of Consciousness: Awake and Appropriate Patient Behavior: Guarded and Passive Mood Description: Withdrawn Affect Description: Constricted Patient Cognition Impaired: Yes Ability to Follow Directions: Good Speech Pattern: Clear Hallucinations: None Delusions: Ideas of Reference Thought Process: Distracted and Slowed Thinking Thought Content: positive for [place] and positive for Poverty of Content Judgement: Fair Diagnostics Vital Signs (24Hr): Vital Signs - 24 hr 03/10/24 20:00 03/11/24 08:00 03/11/24 08:38 Temperature 98.2 F 97.0 F Pulse Rate 60 51 Respiratory Rate 18 18 Blood Pressure 128/64 118/58 L 118/58 L Pulse Oximetry 97 95 Oxygen Delivery Method Room Air Room Air BMI result Body Mass Index 23.7 Labs 02/01/24 08:26 Medications Medications Current Medications Acetaminophen (Acetaminophen 325 Mg Tablet) 650 mg PO Q6H PRN PRN Reason: Headache/Pain Mild Scale (1-3) Last Admin: 03/08/24 02:00 Dose: 650 mg Al Hydroxide/Mg Hydroxide (Magnesium Hydrox/Alum Hydrox 30 Ml Oral.Susp) 30 ml PO Q6H PRN PRN Reason: Heartburn/Nausea Amlodipine Besylate (Amlodipine Besylate 5 Mg Tablet) 5 mg PO DAILY [facility]; Protocol Last Admin: 03/11/24 08:38 Dose: Not Given Atorvastatin Calcium (Atorvastatin Calcium 20 Mg Tablet) 20 mg PO DAILY [facility] Last Admin: 03/11/24 08:23 Dose: 20 mg Benzocaine (Benzocaine 20 % Oral Gel 9 Gm Tube) 1 appl MUCOUS MEM QID PRN; Protocol PRN Reason: Pain, Mild (Pain Scale 1-3) Clozapine (Clozapine 25 Mg Tablet) 25 mg PO BEDTIME [facility] Fludrocortisone Acetate (Fludrocortisone Acetate 0.1 Mg Tablet) 0.1 mg PO BID [facility] Last Admin: 03/11/24 08:23 Dose: 0.1 mg Magnesium Hydroxide (Milk Of Magnesia 30 Ml Oral.Susp) 30 ml PO DAILY PRN PRN Reason: Constipation Olanzapine (Olanzapine Odt 10 Mg Tab.Rapdis) 10 mg TRANSLINGU BID PRN PRN Reason: agitation Last Admin: 03/03/24 09:01 Dose: 10 mg Olanzapine (Olanzapine Odt 10 Mg Tab.Rapdis) 15 mg TRANSLINGU BEDTIME [facility] Last Admin: 03/10/24 21:01 Dose: 15 mg Prednisone (Prednisone 1 Mg Tablet) 1 mg PO DAILY [facility] Last Admin: 03/11/24 08:23 Dose: 1 mg Prednisone (Prednisone 5 Mg Tablet) 5 mg PO DAILY [facility] Last Admin: 03/11/24 08:23 Dose: 5 mg Risperidone (Risperidone 1 Mg Tablet) 1 mg PO TID PRN PRN Reason: psychosis/agitation Last Admin: 03/09/24 20:04 Dose: 1 mg Senna (Sennosides 8.6 Mg Tablet) 17.2 mg PO DAILY [facility] Last Admin: 03/11/24 08:38 Dose: Not Given Trazodone HCl (Trazodone Hcl 50 Mg Tablet) 50 mg PO BEDTIME MRX1 PRN PRN Reason: Insomnia Last Admin: 03/10/24 21:01 Dose: 50 mg Trimethoprim/Sulfamethoxazole (Sulfamethox/Trimeth 800/160 Tablet) 1 tab PO Q12H [facility] Last Admin: 03/11/24 08:22 Dose: 1 tab Vitamin D (Cholecalciferol (Vitamin D3) 25 Mcg Tablet) 25 mcg PO DAILY [facility] Last Admin: 03/11/24 08:23 Dose: 25 mcg Allergies Allergies Allergy/AdvReac Type Severity Reaction Status Date / Time No Known Allergies Allergy Verified 12/25/23 17:04 Assessment & Plan Assessment & Plan (1) Schizoaffective disorder, depressive type: Status: Acute Code(s): F25.1 - Schizoaffective disorder, depressive type (2) Dementia: Status: Acute Code(s): F03.90 - Unspecified dementia, unspecified severity, without behavioral disturbance, psychotic disturbance, mood disturbance, and anxiety Plan The patient is an elderly female with a past history of schizoaffective disorder bipolar type, cognitive impairment and several medical comorbidities who was initially admitted for psychotic decompensation and needed to be transferred to Medicine due to sepsis. She was medically cleared transferring back into this facility for continuation of care. 02/21/24: Continue to encourage treatment. 02/22 continue tx. 02/23 Continue current regime and plan of care 02/24 Continue current regime and plan of care 02/28/24 Patient highly irritable, paranoid; started screaming at roommate to get out of her room and rushed at a peer; intrusive to this peers. Electric Brain Wave Equipment Mechanic tried to discuss this with patient who was guarded and angry. Said she was taking her medication and irritated when grant writer discussed otherwise. Patient seemed to agreed to get back on clozapine which was restarted 03/09- continue tx. 03/10 continue tx. Plan 1. Continue with Zyprexa. 2. Guardianship hearing for placement. 3. Continue with 15 minute checks. Reason for continued inpatient stay Substantial Risk for: inability to function, rapid decompensation and med/psych decompensation Time Spent With Patient Time: Total time managing care of this patient today _20___ minutes.
[2024-03-11] MEDS: risperiDONE 1 MG TABLET PO (17:03)
[2024-03-11 20:00] VITALS: BP 108/55; PULSE 69; RESP 18; TEMP 36.6; O2SAT 96
[2024-03-11] MEDS: traZODone HCL 50 MG TABLET PO (20:05)
[2024-03-11] MEDS: OLANZapine ODT 10 MG TAB.RAPDIS 15 MG TRANSLINGU (20:06)
[2024-03-12 08:00] VITALS: BP 99/51; PULSE 55; RESP 18; TEMP 36.3; O2SAT 95
[2024-03-12] MEDS: Fludrocortisone Acetate 0.1 MG TABLET PO ×2 (08:32→20:24)
[2024-03-12] MEDS: Atorvastatin Calcium 20 MG TABLET PO (08:32)
[2024-03-12] MEDS: Sulfamethox/Trimeth 800/160 TABLET 1 TAB PO ×2 (08:32→20:23)
[2024-03-12] MEDS: Cholecalciferol (Vitamin D3) 25 MCG TABLET PO (08:32)
[2024-03-12] MEDS: predniSONE 5 MG TABLET PO (08:32)
[2024-03-12] MEDS: predniSONE 1 MG TABLET PO (08:32)
[2024-03-12 08:34] LABS: Neut%MD 41.9 %; WBCANC 7.2 X10*3/uL
[2024-03-12 08:38] VITALS: BP 99/51
--- NOTE | 2024-03-12 14:28 | P.PNPSI_ITS ---
Subjective Subjective Date of Service: 03/19/24 Reason For Visit: dementia Subjective Notes: Conditional Voluntary Interim History: The nursing staff reported no changes in her mental status, she slept 6 hours fully compliant with treatment. The psychiatric social worker reported that we are going to have the hearing for the guardianship today in the morning. On interview the patient denies new symptoms, waiting for placement. We need a guardianship to start the process of referrals. Mental Status Exam Mental Status Exam Patient Appearance: Appropriate Patient Orientation: Person and Situation Level of Consciousness: Awake and Appropriate Patient Behavior: Guarded and Passive Mood Description: Withdrawn Affect Description: Constricted Patient Cognition Impaired: Yes Ability to Follow Directions: Good Speech Pattern: Clear Hallucinations: None Delusions: Ideas of Reference Thought Process: Distracted and Slowed Thinking Thought Content: positive for [place] and positive for Poverty of Content Judgement: Poor Diagnostics Vital Signs (24Hr): Vital Signs - 24 hr 03/11/24 20:00 03/12/24 08:00 03/12/24 08:38 Temperature 97.9 F 97.3 F Pulse Rate 69 55 Respiratory Rate 18 18 Blood Pressure 108/55 L 99/51 L 99/51 L Pulse Oximetry 96 95 Oxygen Delivery Method Room Air Room Air BMI result Body Mass Index 23.7 Labs 02/01/24 08:26 Labs: Laboratory Results - last 48 hr 03/12/24 08:01 Absolute Neuts (auto) 3.0 Medications Medications Current Medications Acetaminophen (Acetaminophen 325 Mg Tablet) 650 mg PO Q6H PRN PRN Reason: Headache/Pain Mild Scale (1-3) Last Admin: 03/08/24 02:00 Dose: 650 mg Al Hydroxide/Mg Hydroxide (Magnesium Hydrox/Alum Hydrox 30 Ml Oral.Susp) 30 ml PO Q6H PRN PRN Reason: Heartburn/Nausea Amlodipine Besylate (Amlodipine Besylate 5 Mg Tablet) 5 mg PO DAILY [facility]; Protocol Last Admin: 03/12/24 08:38 Dose: Not Given Atorvastatin Calcium (Atorvastatin Calcium 20 Mg Tablet) 20 mg PO DAILY [facility] Last Admin: 03/12/24 08:32 Dose: 20 mg Benzocaine (Benzocaine 20 % Oral Gel 9 Gm Tube) 1 appl MUCOUS MEM QID PRN; Protocol PRN Reason: Pain, Mild (Pain Scale 1-3) Clozapine (Clozapine 25 Mg Tablet) 25 mg PO BEDTIME [facility] Fludrocortisone Acetate (Fludrocortisone Acetate 0.1 Mg Tablet) 0.1 mg PO BID [facility] Last Admin: 03/12/24 08:32 Dose: 0.1 mg Magnesium Hydroxide (Milk Of Magnesia 30 Ml Oral.Susp) 30 ml PO DAILY PRN PRN Reason: Constipation Olanzapine (Olanzapine Odt 10 Mg Tab.Rapdis) 10 mg TRANSLINGU BID PRN PRN Reason: agitation Last Admin: 03/03/24 09:01 Dose: 10 mg Olanzapine (Olanzapine Odt 10 Mg Tab.Rapdis) 15 mg TRANSLINGU BEDTIME [facility] Last Admin: 03/11/24 20:06 Dose: 15 mg Prednisone (Prednisone 1 Mg Tablet) 1 mg PO DAILY [facility] Last Admin: 03/12/24 08:32 Dose: 1 mg Prednisone (Prednisone 5 Mg Tablet) 5 mg PO DAILY [facility] Last Admin: 03/12/24 08:32 Dose: 5 mg Risperidone (Risperidone 1 Mg Tablet) 1 mg PO TID PRN PRN Reason: psychosis/agitation Last Admin: 03/11/24 17:03 Dose: 1 mg Senna (Sennosides 8.6 Mg Tablet) 17.2 mg PO DAILY [facility] Last Admin: 03/12/24 08:38 Dose: Not Given Trazodone HCl (Trazodone Hcl 50 Mg Tablet) 50 mg PO BEDTIME MRX1 PRN PRN Reason: Insomnia Last Admin: 03/11/24 20:05 Dose: 50 mg Trimethoprim/Sulfamethoxazole (Sulfamethox/Trimeth 800/160 Tablet) 1 tab PO Q12H [facility] Last Admin: 03/12/24 08:32 Dose: 1 tab Vitamin D (Cholecalciferol (Vitamin D3) 25 Mcg Tablet) 25 mcg PO DAILY [facility] Last Admin: 03/12/24 08:32 Dose: 25 mcg Allergies Allergies Allergy/AdvReac Type Severity Reaction Status Date / Time No Known Allergies Allergy Verified 12/25/23 17:04 Assessment & Plan Assessment & Plan (1) Schizoaffective disorder, depressive type: Status: Acute Code(s): F25.1 - Schizoaffective disorder, depressive type (2) Dementia: Status: Acute Code(s): F03.90 - Unspecified dementia, unspecified severity, without behavioral disturbance, psychotic disturbance, mood disturbance, and anxiety Plan The patient is an elderly female with a past history of schizoaffective disorder bipolar type, cognitive impairment and several medical comorbidities who was initially admitted for psychotic decompensation and needed to be transferred to Medicine due to sepsis. She was medically cleared transferring back into this facility for continuation of care. 02/21/24: Continue to encourage treatment. 02/22 continue tx. 02/23 Continue current regime and plan of care 02/24 Continue current regime and plan of care 02/28/24 Patient highly irritable, paranoid; started screaming at roommate to get out of her room and rushed at a peer; intrusive to this peers. Cold Header Operator tried to discuss this with patient who was guarded and angry. Said she was taking her medication and irritated when credit underwriter discussed otherwise. Patient seemed to agreed to get back on clozapine which was restarted 03/09- continue tx. 03/10 continue tx. Plan 1. Continue with Zyprexa. 2. Guardianship hearing for placement. 3. Continue with 15 minute checks. Reason for continued inpatient stay Substantial Risk for: inability to function, rapid decompensation and med/psych decompensation Time Spent With Patient Time: Total time managing care of this patient today __20__ minutes.
[2024-03-12] MEDS: risperiDONE 1 MG TABLET PO (17:05)
[2024-03-12 20:00] VITALS: BP 128/69; PULSE 72; RESP 16; TEMP 36.6; O2SAT 97
[2024-03-12] MEDS: traZODone HCL 50 MG TABLET PO (20:23)
[2024-03-12] MEDS: OLANZapine ODT 10 MG TAB.RAPDIS 15 MG TRANSLINGU (20:24)
[2024-03-13 08:33] VITALS: BP 110/57; PULSE 54; RESP 15; O2SAT 99
[2024-03-13] MEDS: Atorvastatin Calcium 20 MG TABLET PO (08:46)
[2024-03-13] MEDS: amLODIPine Besylate 5 MG TABLET PO (08:46)
[2024-03-13] MEDS: predniSONE 5 MG TABLET PO (08:46)
[2024-03-13] MEDS: predniSONE 1 MG TABLET PO (08:46)
[2024-03-13] MEDS: Cholecalciferol (Vitamin D3) 25 MCG TABLET PO (08:46)
[2024-03-13] MEDS: Sulfamethox/Trimeth 800/160 TABLET 1 TAB PO ×2 (08:46→20:31)
[2024-03-13] MEDS: Fludrocortisone Acetate 0.1 MG TABLET PO ×2 (08:46→20:31)
--- NOTE | 2024-03-13 12:26 | HO.PSYCHPN ---
Subjective Subjective Date of Service: 03/13/24 Reason For Visit: dementia Subjective Notes: Conditional Voluntary Interim History: The nursing staff reported that the patient has been compliant with treatment, no side effects. On interview, she denies new symptoms, waiting for placement. Mental Status Exam Mental Status Exam Patient Orientation: Person and Situation Level of Consciousness: Awake and Appropriate Patient Behavior: Appropriate Affect Description: Constricted Patient Cognition Impaired: Yes Ability to Follow Directions: Good Speech Pattern: Clear Hallucinations: None Delusions: Paranoid Ideation Thought Process: Slowed Thinking Thought Content: positive for Circumstantial Judgement: Fair Diagnostics Vital Signs (24Hr): Vital Signs - 24 hr 03/12/24 20:00 03/13/24 08:33 Temperature 97.9 F Pulse Rate 72 54 Respiratory Rate 16 15 Blood Pressure 128/69 110/57 L Pulse Oximetry 97 99 Oxygen Delivery Method Room Air Room Air BMI result Body Mass Index 23.7 Labs 02/01/24 08:26 Labs: Laboratory Results - last 48 hr 03/12/24 08:01 Absolute Neuts (auto) 3.0 Medications Medications Current Medications Acetaminophen (Acetaminophen 325 Mg Tablet) 650 mg PO Q6H PRN PRN Reason: Headache/Pain Mild Scale (1-3) Last Admin: 03/08/24 02:00 Dose: 650 mg Al Hydroxide/Mg Hydroxide (Magnesium Hydrox/Alum Hydrox 30 Ml Oral.Susp) 30 ml PO Q6H PRN PRN Reason: Heartburn/Nausea Amlodipine Besylate (Amlodipine Besylate 5 Mg Tablet) 5 mg PO DAILY [facility]; Protocol Last Admin: 03/13/24 08:46 Dose: 5 mg Atorvastatin Calcium (Atorvastatin Calcium 20 Mg Tablet) 20 mg PO DAILY [facility] Last Admin: 03/13/24 08:46 Dose: 20 mg Benzocaine (Benzocaine 20 % Oral Gel 9 Gm Tube) 1 appl MUCOUS MEM QID PRN; Protocol PRN Reason: Pain, Mild (Pain Scale 1-3) Clozapine (Clozapine 25 Mg Tablet) 25 mg PO BEDTIME [facility] Fludrocortisone Acetate (Fludrocortisone Acetate 0.1 Mg Tablet) 0.1 mg PO BID [facility] Last Admin: 03/13/24 08:46 Dose: 0.1 mg Magnesium Hydroxide (Milk Of Magnesia 30 Ml Oral.Susp) 30 ml PO DAILY PRN PRN Reason: Constipation Olanzapine (Olanzapine Odt 10 Mg Tab.Rapdis) 10 mg TRANSLINGU BID PRN PRN Reason: agitation Last Admin: 03/03/24 09:01 Dose: 10 mg Olanzapine (Olanzapine Odt 10 Mg Tab.Rapdis) 15 mg TRANSLINGU BEDTIME [facility] Last Admin: 03/12/24 20:24 Dose: 15 mg Prednisone (Prednisone 1 Mg Tablet) 1 mg PO DAILY [facility] Last Admin: 03/13/24 08:46 Dose: 1 mg Prednisone (Prednisone 5 Mg Tablet) 5 mg PO DAILY [facility] Last Admin: 03/13/24 08:46 Dose: 5 mg Risperidone (Risperidone 1 Mg Tablet) 1 mg PO TID PRN PRN Reason: psychosis/agitation Last Admin: 03/12/24 17:05 Dose: 1 mg Senna (Sennosides 8.6 Mg Tablet) 17.2 mg PO DAILY [facility] Last Admin: 03/13/24 08:48 Dose: Not Given Trazodone HCl (Trazodone Hcl 50 Mg Tablet) 50 mg PO BEDTIME MRX1 PRN PRN Reason: Insomnia Last Admin: 03/12/24 20:23 Dose: 50 mg Trimethoprim/Sulfamethoxazole (Sulfamethox/Trimeth 800/160 Tablet) 1 tab PO Q12H [facility] Stop: 03/15/24 08:44 Last Admin: 03/13/24 08:46 Dose: 1 tab Vitamin D (Cholecalciferol (Vitamin D3) 25 Mcg Tablet) 25 mcg PO DAILY [facility] Last Admin: 03/13/24 08:46 Dose: 25 mcg Allergies Allergies Allergy/AdvReac Type Severity Reaction Status Date / Time No Known Allergies Allergy Verified 12/25/23 17:04 Assessment & Plan Assessment & Plan (1) Schizoaffective disorder, depressive type: Status: Acute Code(s): F25.1 - Schizoaffective disorder, depressive type (2) Dementia: Status: Acute Code(s): F03.90 - Unspecified dementia, unspecified severity, without behavioral disturbance, psychotic disturbance, mood disturbance, and anxiety Plan The patient is an elderly female with a past history of schizoaffective disorder bipolar type, cognitive impairment and several medical comorbidities who was initially admitted for psychotic decompensation and needed to be transferred to Medicine due to sepsis. She was medically cleared transferring back into this facility for continuation of care. 02/21/24: Continue to encourage treatment. 02/22 continue tx. 02/23 Continue current regime and plan of care 02/24 Continue current regime and plan of care 02/28/24 Patient highly irritable, paranoid; started screaming at roommate to get out of her room and rushed at a peer; intrusive to this peers. Enterprise Project Manager tried to discuss this with patient who was guarded and angry. Said she was taking her medication and irritated when aligner typewriter discussed otherwise. Patient seemed to agreed to get back on clozapine which was restarted 03/09- continue tx. 03/10 continue tx. Plan 1. Continue with Zyprexa. 2. Guardianship hearing for placement. 3. Continue with 15 minute checks. Reason for continued inpatient stay Substantial Risk for: inability to function and rapid decompensation Time Spent With Patient Time: Total time managing care of this patient today __20__ minutes.
[2024-03-13 20:00] VITALS: BP 105/50; PULSE 73; TEMP 36.1; O2SAT 94
[2024-03-13] MEDS: traZODone HCL 50 MG TABLET PO (20:30)
[2024-03-13] MEDS: OLANZapine ODT 10 MG TAB.RAPDIS 15 MG TRANSLINGU (20:30)
[2024-03-14 07:00] VITALS: BMI 21.4
[2024-03-14 08:12] VITALS: BP 93/50; PULSE 53; RESP 16; TEMP 36; O2SAT 96
[2024-03-14] MEDS: Atorvastatin Calcium 20 MG TABLET PO (08:17)
[2024-03-14] MEDS: Fludrocortisone Acetate 0.1 MG TABLET PO ×2 (08:17→20:00)
[2024-03-14] MEDS: Sulfamethox/Trimeth 800/160 TABLET 1 TAB PO ×2 (08:17→20:00)
[2024-03-14] MEDS: Cholecalciferol (Vitamin D3) 25 MCG TABLET PO (08:18)
[2024-03-14] MEDS: predniSONE 1 MG TABLET PO (08:18)
[2024-03-14] MEDS: predniSONE 5 MG TABLET PO (08:18)
--- NOTE | 2024-03-14 16:53 | HO.PSYCHPN ---
Subjective Subjective Date of Service: 03/14/24 Reason For Visit: dementia Subjective Notes: Conditional Voluntary Healthcare Proxy: Yes Interim History: The nursing staff reported the patient had been isolative compliant with medications slept 8 hours. On interview the patient denies new symptoms waiting for placement. Mental Status Exam Mental Status Exam Patient Appearance: Appropriate Patient Orientation: Person and Situation Level of Consciousness: Awake and Appropriate Patient Behavior: Guarded and Passive Mood Description: Withdrawn Affect Description: Constricted Patient Cognition Impaired: Yes Ability to Follow Directions: Good Speech Pattern: Clear Hallucinations: None Delusions: Not Present Thought Process: Distracted and Slowed Thinking Thought Content: positive for [place] and positive for Poverty of Content Judgement: Poor Diagnostics Vital Signs (24Hr): Vital Signs - 24 hr 03/13/24 20:00 03/14/24 08:12 Temperature 96.9 F 96.8 F Pulse Rate 73 53 Respiratory Rate 16 Blood Pressure 105/50 L 93/50 L Pulse Oximetry 94 96 Oxygen Delivery Method Room Air Room Air BMI result Body Mass Index 21.4 Labs 02/01/24 08:26 Medications Medications Current Medications Acetaminophen (Acetaminophen 325 Mg Tablet) 650 mg PO Q6H PRN PRN Reason: Headache/Pain Mild Scale (1-3) Last Admin: 03/08/24 02:00 Dose: 650 mg Al Hydroxide/Mg Hydroxide (Magnesium Hydrox/Alum Hydrox 30 Ml Oral.Susp) 30 ml PO Q6H PRN PRN Reason: Heartburn/Nausea Amlodipine Besylate (Amlodipine Besylate 5 Mg Tablet) 5 mg PO DAILY [facility]; Protocol Last Admin: 03/14/24 08:20 Dose: Not Given Atorvastatin Calcium (Atorvastatin Calcium 20 Mg Tablet) 20 mg PO DAILY [facility] Last Admin: 03/14/24 08:17 Dose: 20 mg Benzocaine (Benzocaine 20 % Oral Gel 9 Gm Tube) 1 appl MUCOUS MEM QID PRN; Protocol PRN Reason: Pain, Mild (Pain Scale 1-3) Clozapine (Clozapine 25 Mg Tablet) 25 mg PO BEDTIME [facility] Fludrocortisone Acetate (Fludrocortisone Acetate 0.1 Mg Tablet) 0.1 mg PO BID [facility] Last Admin: 03/14/24 08:17 Dose: 0.1 mg Magnesium Hydroxide (Milk Of Magnesia 30 Ml Oral.Susp) 30 ml PO DAILY PRN PRN Reason: Constipation Olanzapine (Olanzapine Odt 10 Mg Tab.Rapdis) 10 mg TRANSLINGU BID PRN PRN Reason: agitation Last Admin: 03/03/24 09:01 Dose: 10 mg Olanzapine (Olanzapine Odt 10 Mg Tab.Rapdis) 15 mg TRANSLINGU BEDTIME [facility] Last Admin: 03/13/24 20:30 Dose: 15 mg Prednisone (Prednisone 1 Mg Tablet) 1 mg PO DAILY [facility] Last Admin: 03/14/24 08:18 Dose: 1 mg Prednisone (Prednisone 5 Mg Tablet) 5 mg PO DAILY [facility] Last Admin: 03/14/24 08:18 Dose: 5 mg Risperidone (Risperidone 1 Mg Tablet) 1 mg PO TID PRN PRN Reason: psychosis/agitation Last Admin: 03/12/24 17:05 Dose: 1 mg Senna (Sennosides 8.6 Mg Tablet) 17.2 mg PO DAILY [facility] Last Admin: 03/14/24 08:22 Dose: Not Given Trazodone HCl (Trazodone Hcl 50 Mg Tablet) 50 mg PO BEDTIME MRX1 PRN PRN Reason: Insomnia Last Admin: 03/13/24 20:30 Dose: 50 mg Trimethoprim/Sulfamethoxazole (Sulfamethox/Trimeth 800/160 Tablet) 1 tab PO Q12H [facility] Stop: 03/15/24 08:44 Last Admin: 03/14/24 08:17 Dose: 1 tab Vitamin D (Cholecalciferol (Vitamin D3) 25 Mcg Tablet) 25 mcg PO DAILY [facility] Last Admin: 03/14/24 08:18 Dose: 25 mcg Allergies Allergies Allergy/AdvReac Type Severity Reaction Status Date / Time No Known Allergies Allergy Verified 12/25/23 17:04 Assessment & Plan Assessment & Plan (1) Schizoaffective disorder, depressive type: Status: Acute Code(s): F25.1 - Schizoaffective disorder, depressive type (2) Dementia: Status: Acute Code(s): F03.90 - Unspecified dementia, unspecified severity, without behavioral disturbance, psychotic disturbance, mood disturbance, and anxiety Plan The patient is an elderly female with a past history of schizoaffective disorder bipolar type, cognitive impairment and several medical comorbidities who was initially admitted for psychotic decompensation and needed to be transferred to Medicine due to sepsis. She was medically cleared transferring back into this facility for continuation of care. 02/21/24: Continue to encourage treatment. 02/22 continue tx. 02/23 Continue current regime and plan of care 02/24 Continue current regime and plan of care 02/28/24 Patient highly irritable, paranoid; started screaming at roommate to get out of her room and rushed at a peer; intrusive to this peers. Supervisor Uranium Processing tried to discuss this with patient who was guarded and angry. Said she was taking her medication and irritated when internal communications writer discussed otherwise. Patient seemed to agreed to get back on clozapine which was restarted 03/09- continue tx. 03/10 continue tx. Plan 1. Continue with Zyprexa. 2. Guardianship hearing for placement. 3. Continue with 15 minute checks. Reason for continued inpatient stay Substantial Risk for: inability to function, rapid decompensation and med/psych decompensation Time Spent With Patient Time: Total time managing care of this patient today _20___ minutes.
[2024-03-14 20:00] VITALS: BP 109/64; PULSE 68; RESP 16; TEMP 36.9; O2SAT 96
[2024-03-14] MEDS: OLANZapine ODT 10 MG TAB.RAPDIS 15 MG TRANSLINGU (20:01)
--- NOTE | 2024-03-15 10:24 | HO.PSYCHPN ---
Subjective Subjective Date of Service: 03/15/24 Reason For Visit: dementia Subjective Notes: Conditional Voluntary Healthcare Proxy: Yes Interim History: The nursing staff reported no changes in her mental status compliant with treatment. On interview the patient denies new symptoms. Mental Status Exam Mental Status Exam Patient Appearance: Appropriate Patient Orientation: Person and Situation Level of Consciousness: Awake Patient Behavior: Guarded and Passive Mood Description: Constricted Affect Description: Calm Patient Cognition Impaired: Yes Ability to Follow Directions: Good Speech Pattern: Clear Hallucinations: None Delusions: Paranoid Ideation and Ideas of Reference Thought Process: Distracted and Slowed Thinking Thought Content: positive for [place] and positive for Poverty of Content Judgement: Fair Diagnostics Vital Signs (24Hr): Vital Signs - 24 hr 03/14/24 20:00 Temperature 98.5 F Pulse Rate 68 Respiratory Rate 16 Blood Pressure 109/64 Pulse Oximetry 96 Oxygen Delivery Method Room Air BMI result Body Mass Index 21.4 Labs 02/01/24 08:26 Medications Medications Current Medications Acetaminophen (Acetaminophen 325 Mg Tablet) 650 mg PO Q6H PRN PRN Reason: Headache/Pain Mild Scale (1-3) Last Admin: 03/08/24 02:00 Dose: 650 mg Al Hydroxide/Mg Hydroxide (Magnesium Hydrox/Alum Hydrox 30 Ml Oral.Susp) 30 ml PO Q6H PRN PRN Reason: Heartburn/Nausea Amlodipine Besylate (Amlodipine Besylate 5 Mg Tablet) 5 mg PO DAILY [facility]; Protocol Last Admin: 03/14/24 08:20 Dose: Not Given Atorvastatin Calcium (Atorvastatin Calcium 20 Mg Tablet) 20 mg PO DAILY [facility] Last Admin: 03/14/24 08:17 Dose: 20 mg Benzocaine (Benzocaine 20 % Oral Gel 9 Gm Tube) 1 appl MUCOUS MEM QID PRN; Protocol PRN Reason: Pain, Mild (Pain Scale 1-3) Fludrocortisone Acetate (Fludrocortisone Acetate 0.1 Mg Tablet) 0.1 mg PO BID [facility] Last Admin: 03/14/24 20:00 Dose: 0.1 mg Magnesium Hydroxide (Milk Of Magnesia 30 Ml Oral.Susp) 30 ml PO DAILY PRN PRN Reason: Constipation Olanzapine (Olanzapine Odt 10 Mg Tab.Rapdis) 10 mg TRANSLINGU BID PRN PRN Reason: agitation Last Admin: 03/03/24 09:01 Dose: 10 mg Olanzapine (Olanzapine Odt 10 Mg Tab.Rapdis) 15 mg TRANSLINGU BEDTIME [facility] Last Admin: 03/14/24 20:01 Dose: 15 mg Prednisone (Prednisone 1 Mg Tablet) 1 mg PO DAILY [facility] Last Admin: 03/14/24 08:18 Dose: 1 mg Prednisone (Prednisone 5 Mg Tablet) 5 mg PO DAILY [facility] Last Admin: 03/14/24 08:18 Dose: 5 mg Risperidone (Risperidone 1 Mg Tablet) 1 mg PO TID PRN PRN Reason: psychosis/agitation Last Admin: 03/12/24 17:05 Dose: 1 mg Senna (Sennosides 8.6 Mg Tablet) 17.2 mg PO DAILY [facility] Last Admin: 03/14/24 08:22 Dose: Not Given Trazodone HCl (Trazodone Hcl 50 Mg Tablet) 50 mg PO BEDTIME MRX1 PRN PRN Reason: Insomnia Last Admin: 03/13/24 20:30 Dose: 50 mg Vitamin D (Cholecalciferol (Vitamin D3) 25 Mcg Tablet) 25 mcg PO DAILY [facility] Last Admin: 03/14/24 08:18 Dose: 25 mcg Allergies Allergies Allergy/AdvReac Type Severity Reaction Status Date / Time No Known Allergies Allergy Verified 12/25/23 17:04 Assessment & Plan Assessment & Plan (1) Schizoaffective disorder, depressive type: Status: Acute Code(s): F25.1 - Schizoaffective disorder, depressive type (2) Dementia: Status: Acute Code(s): F03.90 - Unspecified dementia, unspecified severity, without behavioral disturbance, psychotic disturbance, mood disturbance, and anxiety Plan The patient is an elderly female with a past history of schizoaffective disorder bipolar type, cognitive impairment and several medical comorbidities who was initially admitted for psychotic decompensation and needed to be transferred to Medicine due to sepsis. She was medically cleared transferring back into this facility for continuation of care. 02/21/24: Continue to encourage treatment. 02/22 continue tx. 02/23 Continue current regime and plan of care 02/24 Continue current regime and plan of care 02/28/24 Patient highly irritable, paranoid; started screaming at roommate to get out of her room and rushed at a peer; intrusive to this peers. Mobile Home Installer tried to discuss this with patient who was guarded and angry. Said she was taking her medication and irritated when field underwriter discussed otherwise. Patient seemed to agreed to get back on clozapine which was restarted 03/09- continue tx. 03/10 continue tx. Plan 1. Continue with Zyprexa. 2. Guardianship hearing for placement. 3. Continue with 15 minute checks. 4. We are discontinuing clozapine. Reason for continued inpatient stay Substantial Risk for: inability to function, rapid decompensation and med/psych decompensation Time Spent With Patient Time: Total time managing care of this patient today __20__ minutes.
[2024-03-15 10:48] VITALS: BP 94/54; PULSE 76; RESP 15; TEMP 36.8; O2SAT 95
[2024-03-15] MEDS: Cholecalciferol (Vitamin D3) 25 MCG TABLET PO (10:49)
[2024-03-15] MEDS: predniSONE 5 MG TABLET PO (10:50)
[2024-03-15] MEDS: Fludrocortisone Acetate 0.1 MG TABLET PO ×2 (10:50→20:11)
[2024-03-15] MEDS: predniSONE 1 MG TABLET PO (10:50)
[2024-03-15] MEDS: Atorvastatin Calcium 20 MG TABLET PO (10:50)
[2024-03-15] MEDS: Sennosides 8.6 MG TABLET 17.2 MG PO (10:50)
[2024-03-15 20:00] VITALS: BP 134/83; PULSE 83; RESP 16; TEMP 37.1; O2SAT 94
[2024-03-15] MEDS: OLANZapine ODT 10 MG TAB.RAPDIS 15 MG TRANSLINGU (20:11)
[2024-03-16 08:30] VITALS: BP 174/81; PULSE 66; RESP 17; TEMP 36.6; O2SAT 96
[2024-03-16] MEDS: Cholecalciferol (Vitamin D3) 25 MCG TABLET PO (08:33)
[2024-03-16] MEDS: Atorvastatin Calcium 20 MG TABLET PO (08:33)
[2024-03-16] MEDS: predniSONE 1 MG TABLET PO (08:33)
[2024-03-16] MEDS: Fludrocortisone Acetate 0.1 MG TABLET PO ×2 (08:33→20:24)
[2024-03-16] MEDS: predniSONE 5 MG TABLET PO (08:33)
[2024-03-16] MEDS: amLODIPine Besylate 5 MG TABLET PO (08:33)
--- NOTE | 2024-03-16 13:12 | P.PNPSI_ITS ---
Subjective Subjective Date of Service: 03/16/24 Reason For Visit: dementia Subjective Notes: Conditional Voluntary Interim History: Patient was seen and discussed in rounds. Records and plans were reviewed. She has continued to be mostly isolative with no major changes. She had some diarrhea this morning and senna was held and it has improved. Eating and sleeping adequately. No complaints. No changes were made Review of Systems Review of Systems One bout of diarrhea Yes all other systems are reviewed and are negative Mental Status Exam Mental Status Exam Patient Appearance: Appropriate Patient Orientation: Person and Situation Level of Consciousness: Awake Patient Behavior: Guarded and Passive Mood Description: Constricted Affect Description: Calm Patient Cognition Impaired: Yes Ability to Follow Directions: Good Speech Pattern: Clear Hallucinations: None Delusions: Paranoid Ideation and Ideas of Reference Thought Process: Distracted and Slowed Thinking Thought Content: positive for [place] and positive for Poverty of Content Judgement: Fair Diagnostics Vital Signs (24Hr): Vital Signs - 24 hr 03/15/24 20:00 03/16/24 08:30 Temperature 98.8 F 97.9 F Pulse Rate 83 66 Respiratory Rate 16 17 Blood Pressure 134/83 174/81 H Pulse Oximetry 94 96 Oxygen Delivery Method Room Air Room Air BMI result Body Mass Index 21.4 Labs 02/01/24 08:26 Medications Medications Current Medications Acetaminophen (Acetaminophen 325 Mg Tablet) 650 mg PO Q6H PRN PRN Reason: Headache/Pain Mild Scale (1-3) Last Admin: 03/08/24 02:00 Dose: 650 mg Al Hydroxide/Mg Hydroxide (Magnesium Hydrox/Alum Hydrox 30 Ml Oral.Susp) 30 ml PO Q6H PRN PRN Reason: Heartburn/Nausea Amlodipine Besylate (Amlodipine Besylate 5 Mg Tablet) 5 mg PO DAILY [facility]; Protocol Last Admin: 03/16/24 08:33 Dose: 5 mg Atorvastatin Calcium (Atorvastatin Calcium 20 Mg Tablet) 20 mg PO DAILY [facility] Last Admin: 03/16/24 08:33 Dose: 20 mg Benzocaine (Benzocaine 20 % Oral Gel 9 Gm Tube) 1 appl MUCOUS MEM QID PRN; Protocol PRN Reason: Pain, Mild (Pain Scale 1-3) Fludrocortisone Acetate (Fludrocortisone Acetate 0.1 Mg Tablet) 0.1 mg PO BID [facility] Last Admin: 03/16/24 08:33 Dose: 0.1 mg Magnesium Hydroxide (Milk Of Magnesia 30 Ml Oral.Susp) 30 ml PO DAILY PRN PRN Reason: Constipation Olanzapine (Olanzapine Odt 10 Mg Tab.Rapdis) 10 mg TRANSLINGU BID PRN PRN Reason: agitation Last Admin: 03/03/24 09:01 Dose: 10 mg Olanzapine (Olanzapine Odt 10 Mg Tab.Rapdis) 15 mg TRANSLINGU BEDTIME [facility] Last Admin: 03/15/24 20:11 Dose: 15 mg Prednisone (Prednisone 1 Mg Tablet) 1 mg PO DAILY [facility] Last Admin: 03/16/24 08:33 Dose: 1 mg Prednisone (Prednisone 5 Mg Tablet) 5 mg PO DAILY [facility] Last Admin: 03/16/24 08:33 Dose: 5 mg Risperidone (Risperidone 1 Mg Tablet) 1 mg PO TID PRN PRN Reason: psychosis/agitation Last Admin: 03/12/24 17:05 Dose: 1 mg Senna (Sennosides 8.6 Mg Tablet) 17.2 mg PO DAILY [facility] Last Admin: 03/16/24 08:24 Dose: Not Given Trazodone HCl (Trazodone Hcl 50 Mg Tablet) 50 mg PO BEDTIME MRX1 PRN PRN Reason: Insomnia Last Admin: 03/13/24 20:30 Dose: 50 mg Vitamin D (Cholecalciferol (Vitamin D3) 25 Mcg Tablet) 25 mcg PO DAILY [facility] Last Admin: 03/16/24 08:33 Dose: 25 mcg Allergies Allergies Allergy/AdvReac Type Severity Reaction Status Date / Time No Known Allergies Allergy Verified 12/25/23 17:04 Assessment & Plan Assessment & Plan (1) Schizoaffective disorder, depressive type: Status: Acute Code(s): F25.1 - Schizoaffective disorder, depressive type (2) Dementia: Status: Acute Code(s): F03.90 - Unspecified dementia, unspecified severity, without behavioral disturbance, psychotic disturbance, mood disturbance, and anxiety Plan The patient is an elderly female with a past history of schizoaffective disorder bipolar type, cognitive impairment and several medical comorbidities who was initially admitted for psychotic decompensation and needed to be transferred to Medicine due to sepsis. She was medically cleared transferring back into this facility for continuation of care. 02/21/24: Continue to encourage treatment. 02/22 continue tx. 02/23 Continue current regime and plan of care 02/24 Continue current regime and plan of care 02/28/24 Patient highly irritable, paranoid; started screaming at roommate to get out of her room and rushed at a peer; intrusive to this peers. Environmental Remediation Specialist tried to discuss this with patient who was guarded and angry. Said she was taking her medication and irritated when lyric writer discussed otherwise. Patient seemed to agreed to get back on clozapine which was restarted 03/09- continue tx. 03/10 continue tx. 03/16/2024: Continue current regimen and plans Plan 1. Continue with Zyprexa. 2. Guardianship hearing for placement. 3. Continue with 15 minute checks. 4. We are discontinuing clozapine. Reason for continued inpatient stay Substantial Risk for: med/psych decompensation Time Spent With Patient Time: Total time managing care of this patient today ____ minutes.
[2024-03-16 20:00] VITALS: BP 108/57; PULSE 77; RESP 16; TEMP 36.2; O2SAT 97
[2024-03-16] MEDS: risperiDONE 1 MG TABLET PO (20:24)
[2024-03-16] MEDS: OLANZapine ODT 10 MG TAB.RAPDIS 15 MG TRANSLINGU (20:24)
[2024-03-17 08:22] VITALS: BP 110/56; PULSE 58; RESP 18; TEMP 36.3; O2SAT 95
[2024-03-17] MEDS: Cholecalciferol (Vitamin D3) 25 MCG TABLET PO (08:52)
[2024-03-17] MEDS: Fludrocortisone Acetate 0.1 MG TABLET PO ×2 (08:52→20:24)
[2024-03-17] MEDS: Sennosides 8.6 MG TABLET 17.2 MG PO (08:52)
[2024-03-17] MEDS: Atorvastatin Calcium 20 MG TABLET PO (08:53)
[2024-03-17] MEDS: predniSONE 1 MG TABLET PO (08:53)
[2024-03-17] MEDS: predniSONE 5 MG TABLET PO (08:54)
--- NOTE | 2024-03-17 12:16 | P.PNPSI_ITS ---
Subjective Subjective Date of Service: 03/17/24 Reason For Visit: dementia Subjective Notes: Conditional Voluntary Interim History: Patient was seen and discussed in rounds. Records and plans were reviewed. She has continued to be mostly isolative with no major changes. She did not have any more diarrhea. Continues to be isolated and flat. No behavioral issues. No changes were made Review of Systems Review of Systems Yes all other systems are reviewed and are negative Mental Status Exam Mental Status Exam Patient Appearance: Appropriate Patient Orientation: Person and Situation Level of Consciousness: Awake Patient Behavior: Guarded and Passive Mood Description: Constricted Affect Description: Calm Patient Cognition Impaired: Yes Ability to Follow Directions: Good Speech Pattern: Clear Hallucinations: None Delusions: Paranoid Ideation and Ideas of Reference Thought Process: Distracted and Slowed Thinking Thought Content: positive for [place] and positive for Poverty of Content Judgement: Fair Diagnostics Vital Signs (24Hr): Vital Signs - 24 hr 03/16/24 20:00 03/17/24 08:22 Temperature 97.2 F 97.3 F Pulse Rate 77 58 Respiratory Rate 16 18 Blood Pressure 108/57 L 110/56 L Pulse Oximetry 97 95 Oxygen Delivery Method Room Air Room Air BMI result Body Mass Index 21.4 Labs 02/01/24 08:26 Medications Medications Current Medications Acetaminophen (Acetaminophen 325 Mg Tablet) 650 mg PO Q6H PRN PRN Reason: Headache/Pain Mild Scale (1-3) Last Admin: 03/08/24 02:00 Dose: 650 mg Al Hydroxide/Mg Hydroxide (Magnesium Hydrox/Alum Hydrox 30 Ml Oral.Susp) 30 ml PO Q6H PRN PRN Reason: Heartburn/Nausea Amlodipine Besylate (Amlodipine Besylate 5 Mg Tablet) 5 mg PO DAILY [facility]; Protocol Last Admin: 03/17/24 08:53 Dose: Not Given Atorvastatin Calcium (Atorvastatin Calcium 20 Mg Tablet) 20 mg PO DAILY [facility] Last Admin: 03/17/24 08:53 Dose: 20 mg Benzocaine (Benzocaine 20 % Oral Gel 9 Gm Tube) 1 appl MUCOUS MEM QID PRN; Protocol PRN Reason: Pain, Mild (Pain Scale 1-3) Fludrocortisone Acetate (Fludrocortisone Acetate 0.1 Mg Tablet) 0.1 mg PO BID [facility] Last Admin: 03/17/24 08:52 Dose: 0.1 mg Magnesium Hydroxide (Milk Of Magnesia 30 Ml Oral.Susp) 30 ml PO DAILY PRN PRN Reason: Constipation Olanzapine (Olanzapine Odt 10 Mg Tab.Rapdis) 10 mg TRANSLINGU BID PRN PRN Reason: agitation Last Admin: 03/03/24 09:01 Dose: 10 mg Olanzapine (Olanzapine Odt 10 Mg Tab.Rapdis) 15 mg TRANSLINGU BEDTIME [facility] Last Admin: 03/16/24 20:24 Dose: 15 mg Prednisone (Prednisone 1 Mg Tablet) 1 mg PO DAILY [facility] Last Admin: 03/17/24 08:53 Dose: 1 mg Prednisone (Prednisone 5 Mg Tablet) 5 mg PO DAILY [facility] Last Admin: 03/17/24 08:54 Dose: 5 mg Risperidone (Risperidone 1 Mg Tablet) 1 mg PO TID PRN PRN Reason: psychosis/agitation Last Admin: 03/16/24 20:24 Dose: 1 mg Senna (Sennosides 8.6 Mg Tablet) 17.2 mg PO DAILY [facility] Last Admin: 03/17/24 08:52 Dose: 17.2 mg Trazodone HCl (Trazodone Hcl 50 Mg Tablet) 50 mg PO BEDTIME MRX1 PRN PRN Reason: Insomnia Last Admin: 03/13/24 20:30 Dose: 50 mg Vitamin D (Cholecalciferol (Vitamin D3) 25 Mcg Tablet) 25 mcg PO DAILY [facility] Last Admin: 03/17/24 08:52 Dose: 25 mcg Allergies Allergies Allergy/AdvReac Type Severity Reaction Status Date / Time No Known Allergies Allergy Verified 12/25/23 17:04 Assessment & Plan Assessment & Plan (1) Schizoaffective disorder, depressive type: Status: Acute Code(s): F25.1 - Schizoaffective disorder, depressive type (2) Dementia: Status: Acute Code(s): F03.90 - Unspecified dementia, unspecified severity, without behavioral disturbance, psychotic disturbance, mood disturbance, and anxiety Plan The patient is an elderly female with a past history of schizoaffective disorder bipolar type, cognitive impairment and several medical comorbidities who was initially admitted for psychotic decompensation and needed to be transferred to Medicine due to sepsis. She was medically cleared transferring back into this facility for continuation of care. 02/21/24: Continue to encourage treatment. 02/22 continue tx. 02/23 Continue current regime and plan of care 02/24 Continue current regime and plan of care 02/28/24 Patient highly irritable, paranoid; started screaming at roommate to get out of her room and rushed at a peer; intrusive to this peers. Cosmetology Professor tried to discuss this with patient who was guarded and angry. Said she was taking her medication and irritated when internal communications writer discussed otherwise. Patient seemed to agreed to get back on clozapine which was restarted 03/09- continue tx. 03/10 continue tx. 03/16/2024: Continue current regimen and plans 03/17/2024: Continue current regimen and plans Plan 1. Continue with Zyprexa. 2. Guardianship hearing for placement. 3. Continue with 15 minute checks. 4. We are discontinuing clozapine. Reason for continued inpatient stay Substantial Risk for: med/psych decompensation Time Spent With Patient Time: Total time managing care of this patient today ____ minutes.
[2024-03-17 20:00] VITALS: BP 112/59; PULSE 65; RESP 18; TEMP 36.6; O2SAT 98
[2024-03-17] MEDS: OLANZapine ODT 10 MG TAB.RAPDIS 15 MG TRANSLINGU (20:24)
[2024-03-17] MEDS: traZODone HCL 50 MG TABLET PO (20:24)
[2024-03-18 08:55] VITALS: BP 104/56; PULSE 71; RESP 18; TEMP 36.3; O2SAT 97
[2024-03-18] MEDS: Atorvastatin Calcium 20 MG TABLET PO (09:59)
[2024-03-18] MEDS: Sennosides 8.6 MG TABLET 17.2 MG PO (09:59)
[2024-03-18] MEDS: Fludrocortisone Acetate 0.1 MG TABLET PO ×2 (10:00→20:30)
[2024-03-18 10:01] VITALS: BP 102/58
[2024-03-18] MEDS: amLODIPine Besylate 5 MG TABLET PO (10:01)
[2024-03-18] MEDS: Cholecalciferol (Vitamin D3) 25 MCG TABLET PO (10:02)
[2024-03-18] MEDS: predniSONE 1 MG TABLET PO (10:02)
[2024-03-18] MEDS: predniSONE 5 MG TABLET PO (10:02)
--- NOTE | 2024-03-18 13:48 | HO.PSYCHPN ---
Subjective Subjective Date of Service: 03/18/24 Reason For Visit: dementia Subjective Notes: Conditional Voluntary Interim History: The nursing staff reported no changes in her mental status cooperative and pleasant. On interview the patient denies new symptoms waiting for placement. Mental Status Exam Mental Status Exam Patient Appearance: Appropriate Patient Orientation: Person and Situation Level of Consciousness: Awake and Appropriate Patient Behavior: Guarded and Passive Mood Description: Withdrawn Affect Description: Constricted Patient Cognition Impaired: Yes Ability to Follow Directions: Good Speech Pattern: Clear Hallucinations: None Delusions: Paranoid Ideation Thought Process: Distracted and Slowed Thinking Thought Content: positive for [place] and positive for Poverty of Content Judgement: Poor Diagnostics Vital Signs (24Hr): Vital Signs - 24 hr 03/17/24 20:00 03/18/24 08:55 03/18/24 10:01 Temperature 97.8 F 97.4 F Pulse Rate 65 71 Respiratory Rate 18 18 Blood Pressure 112/59 L 104/56 L 102/58 L Pulse Oximetry 98 97 Oxygen Delivery Method Room Air Room Air BMI result Body Mass Index 21.4 Labs 02/01/24 08:26 Medications Medications Current Medications Acetaminophen (Acetaminophen 325 Mg Tablet) 650 mg PO Q6H PRN PRN Reason: Headache/Pain Mild Scale (1-3) Last Admin: 03/08/24 02:00 Dose: 650 mg Al Hydroxide/Mg Hydroxide (Magnesium Hydrox/Alum Hydrox 30 Ml Oral.Susp) 30 ml PO Q6H PRN PRN Reason: Heartburn/Nausea Amlodipine Besylate (Amlodipine Besylate 5 Mg Tablet) 5 mg PO DAILY [facility]; Protocol Last Admin: 03/18/24 10:01 Dose: 5 mg Atorvastatin Calcium (Atorvastatin Calcium 20 Mg Tablet) 20 mg PO DAILY [facility] Last Admin: 03/18/24 09:59 Dose: 20 mg Benzocaine (Benzocaine 20 % Oral Gel 9 Gm Tube) 1 appl MUCOUS MEM QID PRN; Protocol PRN Reason: Pain, Mild (Pain Scale 1-3) Fludrocortisone Acetate (Fludrocortisone Acetate 0.1 Mg Tablet) 0.1 mg PO BID [facility] Last Admin: 03/18/24 10:00 Dose: 0.1 mg Magnesium Hydroxide (Milk Of Magnesia 30 Ml Oral.Susp) 30 ml PO DAILY PRN PRN Reason: Constipation Olanzapine (Olanzapine Odt 10 Mg Tab.Rapdis) 10 mg TRANSLINGU BID PRN PRN Reason: agitation Last Admin: 03/03/24 09:01 Dose: 10 mg Olanzapine (Olanzapine Odt 10 Mg Tab.Rapdis) 15 mg TRANSLINGU BEDTIME [facility] Last Admin: 03/17/24 20:24 Dose: 15 mg Prednisone (Prednisone 1 Mg Tablet) 1 mg PO DAILY [facility] Last Admin: 03/18/24 10:02 Dose: 1 mg Prednisone (Prednisone 5 Mg Tablet) 5 mg PO DAILY [facility] Last Admin: 03/18/24 10:02 Dose: 5 mg Risperidone (Risperidone 1 Mg Tablet) 1 mg PO TID PRN PRN Reason: psychosis/agitation Last Admin: 03/16/24 20:24 Dose: 1 mg Senna (Sennosides 8.6 Mg Tablet) 17.2 mg PO DAILY [facility] Last Admin: 03/18/24 09:59 Dose: 17.2 mg Trazodone HCl (Trazodone Hcl 50 Mg Tablet) 50 mg PO BEDTIME MRX1 PRN PRN Reason: Insomnia Last Admin: 03/17/24 20:24 Dose: 50 mg Vitamin D (Cholecalciferol (Vitamin D3) 25 Mcg Tablet) 25 mcg PO DAILY [facility] Last Admin: 03/18/24 10:02 Dose: 25 mcg Allergies Allergies Allergy/AdvReac Type Severity Reaction Status Date / Time No Known Allergies Allergy Verified 12/25/23 17:04 Assessment & Plan Assessment & Plan (1) Schizoaffective disorder, depressive type: Status: Acute Code(s): F25.1 - Schizoaffective disorder, depressive type (2) Dementia: Status: Acute Code(s): F03.90 - Unspecified dementia, unspecified severity, without behavioral disturbance, psychotic disturbance, mood disturbance, and anxiety Plan The patient is an elderly female with a past history of schizoaffective disorder bipolar type, cognitive impairment and several medical comorbidities who was initially admitted for psychotic decompensation and needed to be transferred to Medicine due to sepsis. She was medically cleared transferring back into this facility for continuation of care. 02/21/24: Continue to encourage treatment. 02/22 continue tx. 02/23 Continue current regime and plan of care 02/24 Continue current regime and plan of care 02/28/24 Patient highly irritable, paranoid; started screaming at roommate to get out of her room and rushed at a peer; intrusive to this peers. [employer] Field Supervisor tried to discuss this with patient who was guarded and angry. Said she was taking her medication and irritated when music writer discussed otherwise. Patient seemed to agreed to get back on clozapine which was restarted 03/09- continue tx. 03/10 continue tx. 03/16/2024: Continue current regimen and plans 03/17/2024: Continue current regimen and plans Plan 1. Continue with Zyprexa. 2. Guardianship hearing for placement. 3. Continue with 15 minute checks. 4. We are discontinuing clozapine. Reason for continued inpatient stay Substantial Risk for: inability to function, rapid decompensation and med/psych decompensation Time Spent With Patient Time: Total time managing care of this patient today __20__ minutes.
[2024-03-18 20:00] VITALS: BP 128/81; PULSE 62; TEMP 36.5; O2SAT 99
[2024-03-18] MEDS: risperiDONE 1 MG TABLET PO (20:30)
[2024-03-18] MEDS: traZODone HCL 50 MG TABLET PO (20:31)
[2024-03-18] MEDS: OLANZapine ODT 10 MG TAB.RAPDIS 15 MG TRANSLINGU (20:31)
[2024-03-19] MEDS: traZODone HCL 50 MG TABLET PO ×2 (01:24→20:53)
[2024-03-19 08:00] VITALS: BP 99/58; PULSE 68; RESP 18; TEMP 36.3; O2SAT 97
[2024-03-19] MEDS: Cholecalciferol (Vitamin D3) 25 MCG TABLET PO (08:44)
[2024-03-19] MEDS: predniSONE 5 MG TABLET PO (08:44)
[2024-03-19] MEDS: Atorvastatin Calcium 20 MG TABLET PO (08:44)
[2024-03-19] MEDS: Fludrocortisone Acetate 0.1 MG TABLET PO ×2 (08:44→20:52)
[2024-03-19] MEDS: predniSONE 1 MG TABLET PO (08:44)
[2024-03-19 09:21] VITALS: BP 99/58
--- NOTE | 2024-03-19 11:08 | P.PNPSI_ITS ---
Subjective Subjective Date of Service: 03/19/24 Reason For Visit: dementia Subjective Notes: Conditional Voluntary Interim History: The nursing staff reported the patient had complained of auditory hallucinations ?Stacia says that I am going to ?. On interview the patient denies new symptoms stays in her bed most of the time. Isolative no changes in her mental status. Mental Status Exam Mental Status Exam Patient Appearance: Appropriate Patient Orientation: Person and Situation Level of Consciousness: Awake Patient Behavior: Guarded and Passive Mood Description: Withdrawn Affect Description: Constricted Patient Cognition Impaired: Yes Ability to Follow Directions: Good Speech Pattern: Clear Hallucinations: Auditory Delusions: Paranoid Ideation and Ideas of Reference Thought Process: Distracted and Slowed Thinking Thought Content: positive for [place] and positive for Poverty of Content Judgement: Fair Diagnostics Vital Signs (24Hr): Vital Signs - 24 hr 03/18/24 20:00 03/19/24 08:00 03/19/24 09:21 Temperature 97.7 F 97.4 F Pulse Rate 62 68 Respiratory Rate 18 Blood Pressure 128/81 99/58 L 99/58 L Pulse Oximetry 99 97 Oxygen Delivery Method Room Air Room Air BMI result Body Mass Index 21.4 Labs 02/01/24 08:26 Medications Medications Current Medications Acetaminophen (Acetaminophen 325 Mg Tablet) 650 mg PO Q6H PRN PRN Reason: Headache/Pain Mild Scale (1-3) Last Admin: 03/08/24 02:00 Dose: 650 mg Al Hydroxide/Mg Hydroxide (Magnesium Hydrox/Alum Hydrox 30 Ml Oral.Susp) 30 ml PO Q6H PRN PRN Reason: Heartburn/Nausea Amlodipine Besylate (Amlodipine Besylate 5 Mg Tablet) 5 mg PO DAILY [facility]; Protocol Last Admin: 03/19/24 09:21 Dose: Not Given Atorvastatin Calcium (Atorvastatin Calcium 20 Mg Tablet) 20 mg PO DAILY [facility] Last Admin: 03/19/24 08:44 Dose: 20 mg Benzocaine (Benzocaine 20 % Oral Gel 9 Gm Tube) 1 appl MUCOUS MEM QID PRN; Protocol PRN Reason: Pain, Mild (Pain Scale 1-3) Fludrocortisone Acetate (Fludrocortisone Acetate 0.1 Mg Tablet) 0.1 mg PO BID [facility] Last Admin: 03/19/24 08:44 Dose: 0.1 mg Magnesium Hydroxide (Milk Of Magnesia 30 Ml Oral.Susp) 30 ml PO DAILY PRN PRN Reason: Constipation Olanzapine (Olanzapine Odt 10 Mg Tab.Rapdis) 10 mg TRANSLINGU BID PRN PRN Reason: agitation Last Admin: 03/03/24 09:01 Dose: 10 mg Olanzapine (Olanzapine Odt 10 Mg Tab.Rapdis) 15 mg TRANSLINGU BEDTIME [facility] Last Admin: 03/18/24 20:31 Dose: 15 mg Prednisone (Prednisone 1 Mg Tablet) 1 mg PO DAILY [facility] Last Admin: 03/19/24 08:44 Dose: 1 mg Prednisone (Prednisone 5 Mg Tablet) 5 mg PO DAILY [facility] Last Admin: 03/19/24 08:44 Dose: 5 mg Risperidone (Risperidone 1 Mg Tablet) 1 mg PO TID PRN PRN Reason: psychosis/agitation Last Admin: 03/18/24 20:30 Dose: 1 mg Senna (Sennosides 8.6 Mg Tablet) 17.2 mg PO DAILY [facility] Last Admin: 03/19/24 09:20 Dose: Not Given Trazodone HCl (Trazodone Hcl 50 Mg Tablet) 50 mg PO BEDTIME MRX1 PRN PRN Reason: Insomnia Last Admin: 03/19/24 01:24 Dose: 50 mg Vitamin D (Cholecalciferol (Vitamin D3) 25 Mcg Tablet) 25 mcg PO DAILY [facility] Last Admin: 03/19/24 08:44 Dose: 25 mcg Allergies Allergies Allergy/AdvReac Type Severity Reaction Status Date / Time No Known Allergies Allergy Verified 12/25/23 17:04 Assessment & Plan Assessment & Plan (1) Schizoaffective disorder, depressive type: Status: Acute Code(s): F25.1 - Schizoaffective disorder, depressive type (2) Dementia: Status: Acute Code(s): F03.90 - Unspecified dementia, unspecified severity, without behavioral disturbance, psychotic disturbance, mood disturbance, and anxiety Plan The patient is an elderly female with a past history of schizoaffective disorder bipolar type, cognitive impairment and several medical comorbidities who was initially admitted for psychotic decompensation and needed to be transferred to Medicine due to sepsis. She was medically cleared transferring back into this facility for continuation of care. 02/21/24: Continue to encourage treatment. 02/22 continue tx. 02/23 Continue current regime and plan of care 02/24 Continue current regime and plan of care 02/28/24 Patient highly irritable, paranoid; started screaming at roommate to get out of her room and rushed at a peer; intrusive to this peers. Weigh Box Tender tried to discuss this with patient who was guarded and angry. Said she was taking her medication and irritated when singer songwriter discussed otherwise. Patient seemed to agreed to get back on clozapine which was restarted 03/09- continue tx. 03/10 continue tx. 03/16/2024: Continue current regimen and plans 03/17/2024: Continue current regimen and plans Plan 1. Continue with Zyprexa. 2. Guardianship hearing for placement. 3. Continue with 15 minute checks. 4. We are discontinuing clozapine. Reason for continued inpatient stay Substantial Risk for: inability to function, rapid decompensation and med/psych decompensation Time Spent With Patient Time: Total time managing care of this patient today __20__ minutes.
[2024-03-19] MEDS: risperiDONE 1 MG TABLET PO ×2 (16:42→20:54)
[2024-03-19 20:00] VITALS: BP 138/64; PULSE 75; RESP 16; TEMP 36.2; O2SAT 97
[2024-03-19] MEDS: OLANZapine ODT 10 MG TAB.RAPDIS 15 MG TRANSLINGU (20:53)
[2024-03-20 07:55] VITALS: BP 98/52; PULSE 60; RESP 16; TEMP 36.8; O2SAT 97
[2024-03-20] MEDS: Fludrocortisone Acetate 0.1 MG TABLET PO ×2 (08:09→20:17)
[2024-03-20] MEDS: Atorvastatin Calcium 20 MG TABLET PO (08:09)
[2024-03-20] MEDS: predniSONE 1 MG TABLET PO (08:09)
[2024-03-20] MEDS: predniSONE 5 MG TABLET PO (08:09)
[2024-03-20] MEDS: Cholecalciferol (Vitamin D3) 25 MCG TABLET PO (08:09)
--- NOTE | 2024-03-20 14:39 | HO.PSYCHPN ---
Subjective Subjective Date of Service: 03/20/24 Reason For Visit: dementia Subjective Notes: Conditional Voluntary Interim History: The nursing staff reported the patient had been compliant with medications but apparently she was sexually inappropriate with her peer asking her to have oral sex. This is very encouraging safe behavior so we are ordering a new UA. On interview the patient denies new symptoms. Mental Status Exam Mental Status Exam Patient Appearance: Appropriate Patient Orientation: Person Level of Consciousness: Awake Patient Behavior: Guarded and Cooperative Mood Description: Withdrawn Affect Description: Blunted Patient Cognition Impaired: Yes Ability to Follow Directions: Good Speech Pattern: Clear Hallucinations: Auditory Delusions: Paranoid Ideation Thought Process: Illogical Thought Content: positive for [place] and positive for Poverty of Content Judgement: Poor Diagnostics Vital Signs (24Hr): Vital Signs - 24 hr 03/19/24 20:00 03/20/24 07:55 Temperature 97.2 F 98.2 F Pulse Rate 75 60 Respiratory Rate 16 16 Blood Pressure 138/64 98/52 L Pulse Oximetry 97 97 Oxygen Delivery Method Room Air Room Air BMI result Body Mass Index 21.4 Labs 02/01/24 08:26 Medications Medications Current Medications Acetaminophen (Acetaminophen 325 Mg Tablet) 650 mg PO Q6H PRN PRN Reason: Headache/Pain Mild Scale (1-3) Last Admin: 03/08/24 02:00 Dose: 650 mg Al Hydroxide/Mg Hydroxide (Magnesium Hydrox/Alum Hydrox 30 Ml Oral.Susp) 30 ml PO Q6H PRN PRN Reason: Heartburn/Nausea Amlodipine Besylate (Amlodipine Besylate 5 Mg Tablet) 5 mg PO DAILY [facility]; Protocol Last Admin: 03/20/24 08:10 Dose: Not Given Atorvastatin Calcium (Atorvastatin Calcium 20 Mg Tablet) 20 mg PO DAILY [facility] Last Admin: 03/20/24 08:09 Dose: 20 mg Benzocaine (Benzocaine 20 % Oral Gel 9 Gm Tube) 1 appl MUCOUS MEM QID PRN; Protocol PRN Reason: Pain, Mild (Pain Scale 1-3) Fludrocortisone Acetate (Fludrocortisone Acetate 0.1 Mg Tablet) 0.1 mg PO BID [facility] Last Admin: 03/20/24 08:09 Dose: 0.1 mg Magnesium Hydroxide (Milk Of Magnesia 30 Ml Oral.Susp) 30 ml PO DAILY PRN PRN Reason: Constipation Olanzapine (Olanzapine Odt 10 Mg Tab.Rapdis) 10 mg TRANSLINGU BID PRN PRN Reason: agitation Last Admin: 03/03/24 09:01 Dose: 10 mg Olanzapine (Olanzapine Odt 10 Mg Tab.Rapdis) 15 mg TRANSLINGU BEDTIME [facility] Last Admin: 03/19/24 20:53 Dose: 15 mg Prednisone (Prednisone 1 Mg Tablet) 1 mg PO DAILY [facility] Last Admin: 03/20/24 08:09 Dose: 1 mg Prednisone (Prednisone 5 Mg Tablet) 5 mg PO DAILY [facility] Last Admin: 03/20/24 08:09 Dose: 5 mg Risperidone (Risperidone 1 Mg Tablet) 1 mg PO TID PRN PRN Reason: psychosis/agitation Last Admin: 03/19/24 20:54 Dose: 1 mg Senna (Sennosides 8.6 Mg Tablet) 17.2 mg PO DAILY [facility] Last Admin: 03/20/24 08:12 Dose: Not Given Trazodone HCl (Trazodone Hcl 50 Mg Tablet) 50 mg PO BEDTIME MRX1 PRN PRN Reason: Insomnia Last Admin: 03/19/24 20:53 Dose: 50 mg Vitamin D (Cholecalciferol (Vitamin D3) 25 Mcg Tablet) 25 mcg PO DAILY [facility] Last Admin: 03/20/24 08:09 Dose: 25 mcg Allergies Allergies Allergy/AdvReac Type Severity Reaction Status Date / Time No Known Allergies Allergy Verified 12/25/23 17:04 Assessment & Plan Assessment & Plan (1) Schizoaffective disorder, depressive type: Status: Acute Code(s): F25.1 - Schizoaffective disorder, depressive type (2) Dementia: Status: Acute Code(s): F03.90 - Unspecified dementia, unspecified severity, without behavioral disturbance, psychotic disturbance, mood disturbance, and anxiety Plan The patient is an elderly female with a past history of schizoaffective disorder bipolar type, cognitive impairment and several medical comorbidities who was initially admitted for psychotic decompensation and needed to be transferred to Medicine due to sepsis. She was medically cleared transferring back into this facility for continuation of care. 02/21/24: Continue to encourage treatment. 02/22 continue tx. 02/23 Continue current regime and plan of care 02/24 Continue current regime and plan of care 02/28/24 Patient highly irritable, paranoid; started screaming at roommate to get out of her room and rushed at a peer; intrusive to this peers. Spice Miller tried to discuss this with patient who was guarded and angry. Said she was taking her medication and irritated when poem writer discussed otherwise. Patient seemed to agreed to get back on clozapine which was restarted 03/09- continue tx. 03/10 continue tx. 03/16/2024: Continue current regimen and plans 03/17/2024: Continue current regimen and plans Plan 1. Continue with Zyprexa. 2. Guardianship hearing for placement. 3. Continue with 15 minute checks. 4. We are discontinuing clozapine. Reason for continued inpatient stay Substantial Risk for: inability to function, rapid decompensation and med/psych decompensation Time Spent With Patient Time: Total time managing care of this patient today _20___ minutes.
[2024-03-20 20:00] VITALS: BP 90/60; PULSE 72; RESP 19; TEMP 37; O2SAT 96
[2024-03-20] MEDS: OLANZapine ODT 10 MG TAB.RAPDIS 15 MG TRANSLINGU (20:17)
[2024-03-20] MEDS: traZODone HCL 50 MG TABLET PO (20:17)
[2024-03-20 23:05] LABS: Appearance Urine Clear; Color Urine Yellow; Glucose Urine UA 100 mg/dL (Negative); Leukocyte Esterase Urine Trace (Negative); Nitrite Urine Negative (Negative); PH 5.5 (5.0-9.0); Specific Gravity - Urine >= 1.030 (1.005-1.025); UMIC TRIGGER UACC YES; Urine Blood Negative (Negative); Urine Ketones Negative (Negative); Urine Protein Negative (Neg-Trace)
[2024-03-20 23:17] LABS: Bacteria Urine None Seen (None Seen); Hyaline Casts Urine 0-2 /LPF (0-2); RBC Urine 0-2 /HPF (0-2); WBC Urine 0-5 /HPF (0-5)
[2024-03-21 07:55] VITALS: BP 141/64; PULSE 79; RESP 18; TEMP 36.6; O2SAT 95
[2024-03-21] MEDS: Fludrocortisone Acetate 0.1 MG TABLET PO ×2 (08:17→20:32)
[2024-03-21] MEDS: amLODIPine Besylate 5 MG TABLET PO (08:17)
[2024-03-21] MEDS: predniSONE 1 MG TABLET PO (08:17)
[2024-03-21] MEDS: predniSONE 5 MG TABLET PO (08:17)
[2024-03-21] MEDS: Atorvastatin Calcium 20 MG TABLET PO (08:19)
[2024-03-21] MEDS: Cholecalciferol (Vitamin D3) 25 MCG TABLET PO (08:20)
--- NOTE | 2024-03-21 16:23 | P.PNPSI_ITS ---
Subjective Subjective Date of Service: 03/21/24 Reason For Visit: dementia Subjective Notes: Conditional Voluntary Interim History: The nursing staff reported no changes in her mental status compliant with Zyprexa. On interview the patient is internally preoccupied her UA came back normal. Mental Status Exam Mental Status Exam Patient Appearance: Appropriate Patient Orientation: Person Level of Consciousness: Awake Patient Behavior: Guarded and Passive Mood Description: Withdrawn Affect Description: Blunted Patient Cognition Impaired: Yes Ability to Follow Directions: Good Speech Pattern: Clear Hallucinations: None Delusions: Paranoid Ideation and Ideas of Reference Thought Process: Distracted and Slowed Thinking Judgement: Fair Diagnostics Vital Signs (24Hr): Vital Signs - 24 hr 03/20/24 20:00 03/21/24 07:55 Temperature 98.6 F 97.9 F Pulse Rate 72 79 Respiratory Rate 19 18 Blood Pressure 90/60 141/64 H Pulse Oximetry 96 95 Oxygen Delivery Method Room Air Room Air BMI result Body Mass Index 21.4 Labs 02/01/24 08:26 Labs: Laboratory Results - last 48 hr 03/20/24 22:16 Urine Color Yellow Urine Appearance Clear Urine pH 5.5 Ur Specific [place] >= 1.030 H Urine Protein Negative Urine Glucose (UA) 100 H Urine Ketones Negative Urine Blood Negative Urine Nitrite Negative Ur Leukocyte Esterase Trace H Urine RBC 0-2 Urine WBC 0-5 Ur Squamous Epith Cells 3-5 Urine Bacteria None Seen Hyaline Casts 0-2 Medications Medications Current Medications Acetaminophen (Acetaminophen 325 Mg Tablet) 650 mg PO Q6H PRN PRN Reason: Headache/Pain Mild Scale (1-3) Last Admin: 03/08/24 02:00 Dose: 650 mg Al Hydroxide/Mg Hydroxide (Magnesium Hydrox/Alum Hydrox 30 Ml Oral.Susp) 30 ml PO Q6H PRN PRN Reason: Heartburn/Nausea Amlodipine Besylate (Amlodipine Besylate 5 Mg Tablet) 5 mg PO DAILY [facility]; Protocol Last Admin: 03/21/24 08:17 Dose: 5 mg Atorvastatin Calcium (Atorvastatin Calcium 20 Mg Tablet) 20 mg PO DAILY [facility] Last Admin: 03/21/24 08:19 Dose: 20 mg Benzocaine (Benzocaine 20 % Oral Gel 9 Gm Tube) 1 appl MUCOUS MEM QID PRN; Protocol PRN Reason: Pain, Mild (Pain Scale 1-3) Fludrocortisone Acetate (Fludrocortisone Acetate 0.1 Mg Tablet) 0.1 mg PO BID [facility] Last Admin: 03/21/24 08:17 Dose: 0.1 mg Magnesium Hydroxide (Milk Of Magnesia 30 Ml Oral.Susp) 30 ml PO DAILY PRN PRN Reason: Constipation Olanzapine (Olanzapine Odt 10 Mg Tab.Rapdis) 10 mg TRANSLINGU BID PRN PRN Reason: agitation Last Admin: 03/03/24 09:01 Dose: 10 mg Olanzapine (Olanzapine Odt 10 Mg Tab.Rapdis) 15 mg TRANSLINGU BEDTIME [facility] Last Admin: 03/20/24 20:17 Dose: 15 mg Prednisone (Prednisone 1 Mg Tablet) 1 mg PO DAILY [facility] Last Admin: 03/21/24 08:17 Dose: 1 mg Prednisone (Prednisone 5 Mg Tablet) 5 mg PO DAILY [facility] Last Admin: 03/21/24 08:17 Dose: 5 mg Risperidone (Risperidone 1 Mg Tablet) 1 mg PO TID PRN PRN Reason: psychosis/agitation Last Admin: 03/19/24 20:54 Dose: 1 mg Senna (Sennosides 8.6 Mg Tablet) 17.2 mg PO DAILY [facility] Last Admin: 03/21/24 08:26 Dose: Not Given Trazodone HCl (Trazodone Hcl 50 Mg Tablet) 50 mg PO BEDTIME MRX1 PRN PRN Reason: Insomnia Last Admin: 03/20/24 20:17 Dose: 50 mg Vitamin D (Cholecalciferol (Vitamin D3) 25 Mcg Tablet) 25 mcg PO DAILY [facility] Last Admin: 03/21/24 08:20 Dose: 25 mcg Allergies Allergies Allergy/AdvReac Type Severity Reaction Status Date / Time No Known Allergies Allergy Verified 12/25/23 17:04 Assessment & Plan Assessment & Plan (1) Schizoaffective disorder, depressive type: Status: Acute Code(s): F25.1 - Schizoaffective disorder, depressive type (2) Dementia: Status: Acute Code(s): F03.90 - Unspecified dementia, unspecified severity, without behavioral disturbance, psychotic disturbance, mood disturbance, and anxiety Plan The patient is an elderly female with a past history of schizoaffective disorder bipolar type, cognitive impairment and several medical comorbidities who was initially admitted for psychotic decompensation and needed to be transferred to Medicine due to sepsis. She was medically cleared transferring back into this facility for continuation of care. 02/21/24: Continue to encourage treatment. 02/22 continue tx. 02/23 Continue current regime and plan of care 02/24 Continue current regime and plan of care 02/28/24 Patient highly irritable, paranoid; started screaming at roommate to get out of her room and rushed at a peer; intrusive to this peers. Flow Nurse tried to discuss this with patient who was guarded and angry. Said she was taking her medication and irritated when writer technical publications discussed otherwise. Patient seemed to agreed to get back on clozapine which was restarted 03/09- continue tx. 03/10 continue tx. 03/16/2024: Continue current regimen and plans 03/17/2024: Continue current regimen and plans Plan 1. Continue with Zyprexa. 2. Guardianship hearing for placement. 3. Continue with 15 minute checks. 4. We are discontinuing clozapine. Reason for continued inpatient stay Substantial Risk for: inability to function, rapid decompensation and med/psych decompensation Time Spent With Patient Time: Total time managing care of this patient today __20__ minutes.
[2024-03-21 20:00] VITALS: BP 149/68; PULSE 85; RESP 16; TEMP 36.6; O2SAT 97
[2024-03-21] MEDS: OLANZapine ODT 10 MG TAB.RAPDIS 15 MG TRANSLINGU (20:32)
[2024-03-21] MEDS: traZODone HCL 50 MG TABLET PO (20:32)
[2024-03-22 08:00] VITALS: BP 162/77; PULSE 53; RESP 16; TEMP 36.1; O2SAT 95
[2024-03-22 08:46] VITALS: BP 162/77
[2024-03-22] MEDS: amLODIPine Besylate 5 MG TABLET PO (08:46)
[2024-03-22] MEDS: Atorvastatin Calcium 20 MG TABLET PO (08:46)
[2024-03-22] MEDS: Cholecalciferol (Vitamin D3) 25 MCG TABLET PO (08:48)
[2024-03-22] MEDS: predniSONE 5 MG TABLET PO (08:48)
[2024-03-22] MEDS: Fludrocortisone Acetate 0.1 MG TABLET PO ×2 (08:49→20:09)
[2024-03-22] MEDS: predniSONE 1 MG TABLET PO (08:49)
[2024-03-22] MEDS: Magnesium Hydrox/Alum Hydrox 30 ML ORAL.SUSP PO (09:31)
--- NOTE | 2024-03-22 16:15 | HO.PSYCHPN ---
Subjective Subjective Date of Service: 03/22/24 Reason For Visit: dementia Interim History: Pt awake, alert, resting in her room. Talkative, engaged. Denies current sx Denies pain, sx of physical illness Team report pt has had some nausea, anxiety. Medication Compliance: Yes Side effects from medications: No Attending Groups: Intermittent Review of Systems Acute medical concerns: No Medical Review of Systems: unchanged Review of Systems Review of Systems Pt denies currently Mental Status Exam Mental Status Exam Patient Appearance: Appropriate Patient Orientation: Person Level of Consciousness: Alert Patient Behavior: Appropriate, Talkative and Good Eye Contact Mood Description: Constricted Affect Description: Constricted Ability to Follow Directions: Good Speech Pattern: Spontaneous Speech Judgement: Fair Diagnostics Vital Signs (24Hr): Vital Signs - 24 hr 03/21/24 20:00 03/22/24 08:00 03/22/24 08:46 Temperature 97.8 F 96.9 F Pulse Rate 85 53 Respiratory Rate 16 16 Blood Pressure 149/68 H 162/77 H 162/77 H Pulse Oximetry 97 95 Oxygen Delivery Method Room Air Room Air BMI result Body Mass Index 21.4 Labs 02/01/24 08:26 Labs: Laboratory Results - last 48 hr 03/20/24 22:16 Urine Color Yellow Urine Appearance Clear Urine pH 5.5 Ur Specific [place] >= 1.030 H Urine Protein Negative Urine Glucose (UA) 100 H Urine Ketones Negative Urine Blood Negative Urine Nitrite Negative Ur Leukocyte Esterase Trace H Urine RBC 0-2 Urine WBC 0-5 Ur Squamous Epith Cells 3-5 Urine Bacteria None Seen Hyaline Casts 0-2 Medications Medications Current Medications Acetaminophen (Acetaminophen 325 Mg Tablet) 650 mg PO Q6H PRN PRN Reason: Headache/Pain Mild Scale (1-3) Last Admin: 03/08/24 02:00 Dose: 650 mg Al Hydroxide/Mg Hydroxide (Magnesium Hydrox/Alum Hydrox 30 Ml Oral.Susp) 30 ml PO Q6H PRN PRN Reason: Heartburn/Nausea Last Admin: 03/22/24 09:31 Dose: 30 ml Amlodipine Besylate (Amlodipine Besylate 5 Mg Tablet) 5 mg PO DAILY [facility]; Protocol Last Admin: 03/22/24 08:46 Dose: 5 mg Atorvastatin Calcium (Atorvastatin Calcium 20 Mg Tablet) 20 mg PO DAILY [facility] Last Admin: 03/22/24 08:46 Dose: 20 mg Benzocaine (Benzocaine 20 % Oral Gel 9 Gm Tube) 1 appl MUCOUS MEM QID PRN; Protocol PRN Reason: Pain, Mild (Pain Scale 1-3) Fludrocortisone Acetate (Fludrocortisone Acetate 0.1 Mg Tablet) 0.1 mg PO BID [facility] Last Admin: 03/22/24 08:49 Dose: 0.1 mg Magnesium Hydroxide (Milk Of Magnesia 30 Ml Oral.Susp) 30 ml PO DAILY PRN PRN Reason: Constipation Olanzapine (Olanzapine Odt 10 Mg Tab.Rapdis) 10 mg TRANSLINGU BID PRN PRN Reason: agitation Last Admin: 03/03/24 09:01 Dose: 10 mg Olanzapine (Olanzapine Odt 10 Mg Tab.Rapdis) 15 mg TRANSLINGU BEDTIME [facility] Last Admin: 03/21/24 20:32 Dose: 15 mg Prednisone (Prednisone 1 Mg Tablet) 1 mg PO DAILY [facility] Last Admin: 03/22/24 08:49 Dose: 1 mg Prednisone (Prednisone 5 Mg Tablet) 5 mg PO DAILY [facility] Last Admin: 03/22/24 08:48 Dose: 5 mg Risperidone (Risperidone 1 Mg Tablet) 1 mg PO TID PRN PRN Reason: psychosis/agitation Last Admin: 03/19/24 20:54 Dose: 1 mg Senna (Sennosides 8.6 Mg Tablet) 17.2 mg PO DAILY [facility] Last Admin: 03/22/24 09:37 Dose: Not Given Trazodone HCl (Trazodone Hcl 50 Mg Tablet) 50 mg PO BEDTIME MRX1 PRN PRN Reason: Insomnia Last Admin: 03/21/24 20:32 Dose: 50 mg Vitamin D (Cholecalciferol (Vitamin D3) 25 Mcg Tablet) 25 mcg PO DAILY [facility] Last Admin: 03/22/24 08:48 Dose: 25 mcg Allergies Allergies Allergy/AdvReac Type Severity Reaction Status Date / Time No Known Allergies Allergy Verified 12/25/23 17:04 Assessment & Plan Assessment & Plan (1) Schizoaffective disorder, depressive type: Status: Acute Code(s): F25.1 - Schizoaffective disorder, depressive type (2) Dementia: Status: Acute Code(s): F03.90 - Unspecified dementia, unspecified severity, without behavioral disturbance, psychotic disturbance, mood disturbance, and anxiety Plan The patient is an elderly female with a past history of schizoaffective disorder bipolar type, cognitive impairment and several medical comorbidities who was initially admitted for psychotic decompensation and needed to be transferred to Medicine due to sepsis. She was medically cleared transferring back into this facility for continuation of care. 02/21/24: Continue to encourage treatment. 02/22 continue tx. 02/23 Continue current regime and plan of care 02/24 Continue current regime and plan of care 02/28/24 Patient highly irritable, paranoid; started screaming at roommate to get out of her room and rushed at a peer; intrusive to this peers. Technical Photographer tried to discuss this with patient who was guarded and angry. Said she was taking her medication and irritated when junior copywriter discussed otherwise. Patient seemed to agreed to get back on clozapine which was restarted 03/09- continue tx. 03/10 continue tx. 03/16/2024: Continue current regimen and plans 03/17/2024: Continue current regimen and plans 03/22/2024: Continue current plan Plan 1. Continue with Zyprexa. 2. Guardianship hearing for placement. 3. Continue with 15 minute checks. 4. We are discontinuing clozapine. Reason for continued inpatient stay Substantial Risk for: rapid decompensation Time Spent With Patient Time: Total time managing care of this patient today ____ minutes.
[2024-03-22 20:00] VITALS: BP 119/60; PULSE 73; RESP 18; TEMP 36.6; O2SAT 97
[2024-03-22] MEDS: risperiDONE 1 MG TABLET PO (20:09)
[2024-03-22] MEDS: traZODone HCL 50 MG TABLET PO (20:09)
[2024-03-22] MEDS: OLANZapine ODT 10 MG TAB.RAPDIS 15 MG TRANSLINGU (20:09)
[2024-03-23 09:52] VITALS: BP 122/66; PULSE 59; RESP 18; TEMP 36.9; O2SAT 98
[2024-03-23] MEDS: amLODIPine Besylate 5 MG TABLET PO (09:56)
[2024-03-23] MEDS: Fludrocortisone Acetate 0.1 MG TABLET PO ×2 (09:56→20:40)
[2024-03-23] MEDS: predniSONE 5 MG TABLET PO (09:56)
[2024-03-23] MEDS: Atorvastatin Calcium 20 MG TABLET PO (09:57)
[2024-03-23] MEDS: Cholecalciferol (Vitamin D3) 25 MCG TABLET PO (09:57)
[2024-03-23] MEDS: predniSONE 1 MG TABLET PO (09:57)
--- NOTE | 2024-03-23 10:31 | P.PNPSI_ITS ---
Subjective Subjective Date of Service: 03/23/24 Reason For Visit: dementia Interim History: Pt awake, alert, resting in her room. Anxious. Worried she is going to be killed and she doesn't know why or by whom. She told RN last night that there were demons on the unit. Responds to reassurance. Talkative, engaged. Denies SI or HI Review of Systems Review of Systems Pt denies currently Yes all other systems are reviewed and are negative and Unobtainable due to mental status Mental Status Exam Mental Status Exam Narrative: Pt is alert and oriented; behavior is irritable and aggressive; dressed in casual attire with unkempt hair with marginal hygiene; mood is described good but affect remains constricted and irritable; somewhat glaring eye contact Speech is normal volume, rate and prosody; psychomotor agitation present; thought process is goal directed; Thought content with paranoid delusions; denies any SI/HI. AH and internally preoccupied. Patients insight and judgment impaired. Patient Appearance: Appropriate Patient Orientation: Person Level of Consciousness: Alert Patient Behavior: Appropriate, Talkative and Good Eye Contact Mood Description: Constricted Affect Description: Constricted Patient Cognition Impaired: Yes Ability to Follow Directions: Good Speech Pattern: Spontaneous Speech Diagnostics Vital Signs (24Hr): Vital Signs - 24 hr 03/22/24 20:00 03/23/24 09:52 Temperature 97.8 F 98.4 F Pulse Rate 73 59 Respiratory Rate 18 18 Blood Pressure 119/60 122/66 Pulse Oximetry 97 98 Oxygen Delivery Method Room Air Room Air BMI result Body Mass Index 21.4 Labs 02/01/24 08:26 Medications Medications Current Medications Acetaminophen (Acetaminophen 325 Mg Tablet) 650 mg PO Q6H PRN PRN Reason: Headache/Pain Mild Scale (1-3) Last Admin: 03/08/24 02:00 Dose: 650 mg Al Hydroxide/Mg Hydroxide (Magnesium Hydrox/Alum Hydrox 30 Ml Oral.Susp) 30 ml PO Q6H PRN PRN Reason: Heartburn/Nausea Last Admin: 03/22/24 09:31 Dose: 30 ml Amlodipine Besylate (Amlodipine Besylate 5 Mg Tablet) 5 mg PO DAILY [facility]; Protocol Last Admin: 03/23/24 09:56 Dose: 5 mg Atorvastatin Calcium (Atorvastatin Calcium 20 Mg Tablet) 20 mg PO DAILY [facility] Last Admin: 03/23/24 09:57 Dose: 20 mg Benzocaine (Benzocaine 20 % Oral Gel 9 Gm Tube) 1 appl MUCOUS MEM QID PRN; Protocol PRN Reason: Pain, Mild (Pain Scale 1-3) Fludrocortisone Acetate (Fludrocortisone Acetate 0.1 Mg Tablet) 0.1 mg PO BID [facility] Last Admin: 03/23/24 09:56 Dose: 0.1 mg Magnesium Hydroxide (Milk Of Magnesia 30 Ml Oral.Susp) 30 ml PO DAILY PRN PRN Reason: Constipation Olanzapine (Olanzapine Odt 10 Mg Tab.Rapdis) 10 mg TRANSLINGU BID PRN PRN Reason: agitation Last Admin: 03/03/24 09:01 Dose: 10 mg Olanzapine (Olanzapine Odt 10 Mg Tab.Rapdis) 15 mg TRANSLINGU BEDTIME [facility] Last Admin: 03/22/24 20:09 Dose: 15 mg Prednisone (Prednisone 1 Mg Tablet) 1 mg PO DAILY [facility] Last Admin: 03/23/24 09:57 Dose: 1 mg Prednisone (Prednisone 5 Mg Tablet) 5 mg PO DAILY [facility] Last Admin: 03/23/24 09:56 Dose: 5 mg Risperidone (Risperidone 1 Mg Tablet) 1 mg PO TID PRN PRN Reason: psychosis/agitation Last Admin: 03/22/24 20:09 Dose: 1 mg Senna (Sennosides 8.6 Mg Tablet) 17.2 mg PO DAILY [facility] Last Admin: 03/23/24 09:58 Dose: Not Given Trazodone HCl (Trazodone Hcl 50 Mg Tablet) 50 mg PO BEDTIME MRX1 PRN PRN Reason: Insomnia Last Admin: 03/22/24 20:09 Dose: 50 mg Vitamin D (Cholecalciferol (Vitamin D3) 25 Mcg Tablet) 25 mcg PO DAILY [facility] Last Admin: 03/23/24 09:57 Dose: 25 mcg Allergies Allergies Allergy/AdvReac Type Severity Reaction Status Date / Time No Known Allergies Allergy Verified 12/25/23 17:04 Assessment & Plan Assessment & Plan (1) Schizoaffective disorder, depressive type: Status: Acute Code(s): F25.1 - Schizoaffective disorder, depressive type (2) Dementia: Status: Acute Code(s): F03.90 - Unspecified dementia, unspecified severity, without behavioral disturbance, psychotic disturbance, mood disturbance, and anxiety Plan The patient is an elderly female with a past history of schizoaffective disorder bipolar type, cognitive impairment and several medical comorbidities who was initially admitted for psychotic decompensation and needed to be transferred to Medicine due to sepsis. She was medically cleared transferring back into this facility for continuation of care. 02/21/24: Continue to encourage treatment. 02/22 continue tx. 02/23 Continue current regime and plan of care 02/24 Continue current regime and plan of care 02/28/24 Patient highly irritable, paranoid; started screaming at roommate to get out of her room and rushed at a peer; intrusive to this peers. Operations Trainer tried to discuss this with patient who was guarded and angry. Said she was taking her medication and irritated when mortgage or loan underwriter discussed otherwise. Patient seemed to agreed to get back on clozapine which was restarted 03/09- continue tx. 03/10 continue tx. 03/16/2024: Continue current regimen and plans 03/17/2024: Continue current regimen and plans 03/22/2024: Continue current plan 03/23: continue current management and treatment plan. Plan 1. Continue with Zyprexa. 2. Guardianship hearing for placement. 3. Continue with 15 minute checks. 4. We are discontinuing clozapine. Reason for continued inpatient stay Substantial Risk for: inability to function and rapid decompensation Time Spent With Patient Time: Total time managing care of this patient today ____ minutes.
[2024-03-23 20:00] VITALS: BP 132/60; PULSE 85; TEMP 36.9; O2SAT 98
[2024-03-23] MEDS: traZODone HCL 50 MG TABLET PO (20:40)
[2024-03-23] MEDS: risperiDONE 1 MG TABLET PO (20:40)
[2024-03-23] MEDS: OLANZapine ODT 10 MG TAB.RAPDIS 15 MG TRANSLINGU (20:40)
[2024-03-24 08:59] VITALS: BP 117/59; PULSE 58; RESP 18; TEMP 36.2; O2SAT 97
[2024-03-24] MEDS: Cholecalciferol (Vitamin D3) 25 MCG TABLET PO (09:28)
[2024-03-24] MEDS: Atorvastatin Calcium 20 MG TABLET PO (09:28)
[2024-03-24] MEDS: Fludrocortisone Acetate 0.1 MG TABLET PO ×2 (09:28→21:48)
[2024-03-24] MEDS: predniSONE 1 MG TABLET PO (09:28)
[2024-03-24] MEDS: predniSONE 5 MG TABLET PO (09:28)
[2024-03-24] MEDS: amLODIPine Besylate 5 MG TABLET PO (09:28)
--- NOTE | 2024-03-24 10:20 | P.PNPSI_ITS ---
Subjective Subjective Date of Service: 03/24/24 Reason For Visit: dementia Interim History: Pt awake, alert, resting in her room. Reports she is better today. Denies depression and anxiety today. Isolates in her room most of the day except for meals. Denies perceptual disturbances today. Denies SI or HI. Review of Systems Review of Systems Pt denies currently Yes all other systems are reviewed and are negative and Unobtainable due to mental status Mental Status Exam Mental Status Exam Narrative: Pt is alert and oriented; behavior is irritable and aggressive; dressed in casual attire with unkempt hair with marginal hygiene; mood is described good but affect remains constricted and irritable; somewhat glaring eye contact Speech is normal volume, rate and prosody; psychomotor agitation present; thought process is goal directed; Thought content with paranoid delusions; denies any SI/HI. AH and internally preoccupied. Patients insight and judgment impaired. Patient Appearance: Appropriate Patient Orientation: Person Level of Consciousness: Alert Patient Behavior: Appropriate, Talkative and Good Eye Contact Mood Description: Constricted Affect Description: Constricted Patient Cognition Impaired: Yes Ability to Follow Directions: Good Speech Pattern: Spontaneous Speech Diagnostics Vital Signs (24Hr): Vital Signs - 24 hr 03/23/24 20:00 03/24/24 08:59 Temperature 98.4 F 97.2 F Pulse Rate 85 58 Respiratory Rate 18 Blood Pressure 132/60 117/59 L Pulse Oximetry 98 97 Oxygen Delivery Method Room Air Room Air BMI result Body Mass Index 21.4 Labs 02/01/24 08:26 Medications Medications Current Medications Acetaminophen (Acetaminophen 325 Mg Tablet) 650 mg PO Q6H PRN PRN Reason: Headache/Pain Mild Scale (1-3) Last Admin: 03/08/24 02:00 Dose: 650 mg Al Hydroxide/Mg Hydroxide (Magnesium Hydrox/Alum Hydrox 30 Ml Oral.Susp) 30 ml PO Q6H PRN PRN Reason: Heartburn/Nausea Last Admin: 03/22/24 09:31 Dose: 30 ml Amlodipine Besylate (Amlodipine Besylate 5 Mg Tablet) 5 mg PO DAILY [facility]; Protocol Last Admin: 03/24/24 09:28 Dose: 5 mg Atorvastatin Calcium (Atorvastatin Calcium 20 Mg Tablet) 20 mg PO DAILY [facility] Last Admin: 03/24/24 09:28 Dose: 20 mg Benzocaine (Benzocaine 20 % Oral Gel 9 Gm Tube) 1 appl MUCOUS MEM QID PRN; Protocol PRN Reason: Pain, Mild (Pain Scale 1-3) Fludrocortisone Acetate (Fludrocortisone Acetate 0.1 Mg Tablet) 0.1 mg PO BID [facility] Last Admin: 03/24/24 09:28 Dose: 0.1 mg Magnesium Hydroxide (Milk Of Magnesia 30 Ml Oral.Susp) 30 ml PO DAILY PRN PRN Reason: Constipation Olanzapine (Olanzapine Odt 10 Mg Tab.Rapdis) 10 mg TRANSLINGU BID PRN PRN Reason: agitation Last Admin: 03/03/24 09:01 Dose: 10 mg Olanzapine (Olanzapine Odt 10 Mg Tab.Rapdis) 15 mg TRANSLINGU BEDTIME [facility] Last Admin: 03/23/24 20:40 Dose: 15 mg Prednisone (Prednisone 1 Mg Tablet) 1 mg PO DAILY [facility] Last Admin: 03/24/24 09:28 Dose: 1 mg Prednisone (Prednisone 5 Mg Tablet) 5 mg PO DAILY [facility] Last Admin: 03/24/24 09:28 Dose: 5 mg Risperidone (Risperidone 1 Mg Tablet) 1 mg PO TID PRN PRN Reason: psychosis/agitation Last Admin: 03/23/24 20:40 Dose: 1 mg Senna (Sennosides 8.6 Mg Tablet) 17.2 mg PO DAILY [facility] Last Admin: 03/24/24 09:28 Dose: Not Given Trazodone HCl (Trazodone Hcl 50 Mg Tablet) 50 mg PO BEDTIME MRX1 PRN PRN Reason: Insomnia Last Admin: 03/23/24 20:40 Dose: 50 mg Vitamin D (Cholecalciferol (Vitamin D3) 25 Mcg Tablet) 25 mcg PO DAILY [facility] Last Admin: 03/24/24 09:28 Dose: 25 mcg Allergies Allergies Allergy/AdvReac Type Severity Reaction Status Date / Time No Known Allergies Allergy Verified 12/25/23 17:04 Assessment & Plan Assessment & Plan (1) Schizoaffective disorder, depressive type: Status: Acute Code(s): F25.1 - Schizoaffective disorder, depressive type (2) Dementia: Status: Acute Code(s): F03.90 - Unspecified dementia, unspecified severity, without behavioral disturbance, psychotic disturbance, mood disturbance, and anxiety Plan The patient is an elderly female with a past history of schizoaffective disorder bipolar type, cognitive impairment and several medical comorbidities who was initially admitted for psychotic decompensation and needed to be transferred to Medicine due to sepsis. She was medically cleared transferring back into this facility for continuation of care. 02/21/24: Continue to encourage treatment. 02/22 continue tx. 02/23 Continue current regime and plan of care 02/24 Continue current regime and plan of care 02/28/24 Patient highly irritable, paranoid; started screaming at roommate to get out of her room and rushed at a peer; intrusive to this peers. Linoleum Mechanic tried to discuss this with patient who was guarded and angry. Said she was taking her medication and irritated when senior technical writer discussed otherwise. Patient seemed to agreed to get back on clozapine which was restarted 03/09- continue tx. 03/10 continue tx. 03/16/2024: Continue current regimen and plans 03/17/2024: Continue current regimen and plans 03/22/2024: Continue current plan 03/23: continue current management and treatment plan. 03/24: Continue current management and treatment plan. Plan 1. Continue with Zyprexa. 2. Guardianship hearing for placement. 3. Continue with 15 minute checks. 4. We are discontinuing clozapine. Reason for continued inpatient stay Substantial Risk for: inability to function, rapid decompensation and med/psych decompensation Time Spent With Patient Time: Total time managing care of this patient today ____ minutes.
[2024-03-24 20:00] VITALS: BP 106/58; PULSE 71; TEMP 36.6; O2SAT 96
[2024-03-24] MEDS: traZODone HCL 50 MG TABLET PO (21:49)
[2024-03-24] MEDS: OLANZapine ODT 10 MG TAB.RAPDIS 15 MG TRANSLINGU (21:49)
[2024-03-25 08:53] VITALS: BP 112/60; PULSE 56; RESP 18; TEMP 35.8; O2SAT 96
[2024-03-25] MEDS: Atorvastatin Calcium 20 MG TABLET PO (08:55)
[2024-03-25] MEDS: Cholecalciferol (Vitamin D3) 25 MCG TABLET PO (08:55)
[2024-03-25] MEDS: predniSONE 1 MG TABLET PO (08:55)
[2024-03-25] MEDS: amLODIPine Besylate 5 MG TABLET PO (08:56)
[2024-03-25] MEDS: predniSONE 5 MG TABLET PO (08:56)
[2024-03-25] MEDS: Fludrocortisone Acetate 0.1 MG TABLET PO ×2 (08:56→21:23)
--- NOTE | 2024-03-25 10:13 | HO.PSYCHPN ---
Subjective Subjective Date of Service: 03/25/24 Reason For Visit: dementia Subjective Notes: Conditional Voluntary Interim History: The nursing staff reported the patient had been compliant with treatment, no changes in her mental status. On interview the patient denies new symptoms she looks internally preoccupied but easily redirectable. Mental Status Exam Mental Status Exam Patient Appearance: Appropriate Patient Orientation: Person Level of Consciousness: Awake Patient Behavior: Guarded and Passive Mood Description: Withdrawn Affect Description: Constricted Patient Cognition Impaired: Yes Ability to Follow Directions: Good Speech Pattern: Clear Hallucinations: None Delusions: Ideas of Reference Thought Process: Distracted and Slowed Thinking Thought Content: positive for [place] and positive for Poverty of Content Judgement: Fair Diagnostics Vital Signs (24Hr): Vital Signs - 24 hr 03/24/24 20:00 03/25/24 08:53 Temperature 98 F 96.5 F L Pulse Rate 71 56 Respiratory Rate 18 Blood Pressure 106/58 L 112/60 Pulse Oximetry 96 96 Oxygen Delivery Method Room Air Room Air BMI result Body Mass Index 21.4 Labs 02/01/24 08:26 Medications Medications Current Medications Acetaminophen (Acetaminophen 325 Mg Tablet) 650 mg PO Q6H PRN PRN Reason: Headache/Pain Mild Scale (1-3) Last Admin: 03/08/24 02:00 Dose: 650 mg Al Hydroxide/Mg Hydroxide (Magnesium Hydrox/Alum Hydrox 30 Ml Oral.Susp) 30 ml PO Q6H PRN PRN Reason: Heartburn/Nausea Last Admin: 03/22/24 09:31 Dose: 30 ml Amlodipine Besylate (Amlodipine Besylate 5 Mg Tablet) 5 mg PO DAILY [facility]; Protocol Last Admin: 03/25/24 08:56 Dose: 5 mg Atorvastatin Calcium (Atorvastatin Calcium 20 Mg Tablet) 20 mg PO DAILY [facility] Last Admin: 03/25/24 08:55 Dose: 20 mg Benzocaine (Benzocaine 20 % Oral Gel 9 Gm Tube) 1 appl MUCOUS MEM QID PRN; Protocol PRN Reason: Pain, Mild (Pain Scale 1-3) Fludrocortisone Acetate (Fludrocortisone Acetate 0.1 Mg Tablet) 0.1 mg PO BID [facility] Last Admin: 03/25/24 08:56 Dose: 0.1 mg Magnesium Hydroxide (Milk Of Magnesia 30 Ml Oral.Susp) 30 ml PO DAILY PRN PRN Reason: Constipation Olanzapine (Olanzapine Odt 10 Mg Tab.Rapdis) 10 mg TRANSLINGU BID PRN PRN Reason: agitation Last Admin: 03/03/24 09:01 Dose: 10 mg Olanzapine (Olanzapine Odt 10 Mg Tab.Rapdis) 15 mg TRANSLINGU BEDTIME [facility] Last Admin: 03/24/24 21:49 Dose: 15 mg Prednisone (Prednisone 1 Mg Tablet) 1 mg PO DAILY [facility] Last Admin: 03/25/24 08:55 Dose: 1 mg Prednisone (Prednisone 5 Mg Tablet) 5 mg PO DAILY [facility] Last Admin: 03/25/24 08:56 Dose: 5 mg Risperidone (Risperidone 1 Mg Tablet) 1 mg PO TID PRN PRN Reason: psychosis/agitation Last Admin: 03/23/24 20:40 Dose: 1 mg Senna (Sennosides 8.6 Mg Tablet) 17.2 mg PO DAILY [facility] Last Admin: 03/25/24 08:58 Dose: Not Given Trazodone HCl (Trazodone Hcl 50 Mg Tablet) 50 mg PO BEDTIME MRX1 PRN PRN Reason: Insomnia Last Admin: 03/24/24 21:49 Dose: 50 mg Vitamin D (Cholecalciferol (Vitamin D3) 25 Mcg Tablet) 25 mcg PO DAILY [facility] Last Admin: 03/25/24 08:55 Dose: 25 mcg Allergies Allergies Allergy/AdvReac Type Severity Reaction Status Date / Time No Known Allergies Allergy Verified 12/25/23 17:04 Assessment & Plan Assessment & Plan (1) Schizoaffective disorder, depressive type: Status: Acute Code(s): F25.1 - Schizoaffective disorder, depressive type (2) Dementia: Status: Acute Code(s): F03.90 - Unspecified dementia, unspecified severity, without behavioral disturbance, psychotic disturbance, mood disturbance, and anxiety Plan The patient is an elderly female with a past history of schizoaffective disorder bipolar type, cognitive impairment and several medical comorbidities who was initially admitted for psychotic decompensation and needed to be transferred to Medicine due to sepsis. She was medically cleared transferring back into this facility for continuation of care. 02/21/24: Continue to encourage treatment. 02/22 continue tx. 02/23 Continue current regime and plan of care 02/24 Continue current regime and plan of care 02/28/24 Patient highly irritable, paranoid; started screaming at roommate to get out of her room and rushed at a peer; intrusive to this peers. Diesel Retrofit Designer tried to discuss this with patient who was guarded and angry. Said she was taking her medication and irritated when underwriter mortgage loan discussed otherwise. Patient seemed to agreed to get back on clozapine which was restarted 03/09- continue tx. 03/10 continue tx. 03/16/2024: Continue current regimen and plans 03/17/2024: Continue current regimen and plans 03/22/2024: Continue current plan 03/23: continue current management and treatment plan. 03/24: Continue current management and treatment plan. Plan 1. Continue with Zyprexa. 2. Guardianship hearing for placement. 3. Continue with 15 minute checks. 4. We are discontinuing clozapine. Reason for continued inpatient stay Substantial Risk for: inability to function, rapid decompensation and med/psych decompensation Time Spent With Patient Time: Total time managing care of this patient today _20___ minutes.
[2024-03-25 20:00] VITALS: BP 114/53; PULSE 75; RESP 16; TEMP 36.1; O2SAT 97
[2024-03-25] MEDS: OLANZapine ODT 10 MG TAB.RAPDIS 15 MG TRANSLINGU (21:22)
[2024-03-26] MEDS: Cholecalciferol (Vitamin D3) 25 MCG TABLET PO (09:09)
[2024-03-26] MEDS: Atorvastatin Calcium 20 MG TABLET PO (09:10)
[2024-03-26] MEDS: predniSONE 5 MG TABLET PO (09:10)
[2024-03-26] MEDS: Fludrocortisone Acetate 0.1 MG TABLET PO ×2 (09:10→20:12)
[2024-03-26] MEDS: predniSONE 1 MG TABLET PO (09:10)
[2024-03-26 09:11] VITALS: BP 107/56
[2024-03-26 09:13] VITALS: BP 107/56; PULSE 66; RESP 18; TEMP 36.2; O2SAT 98
--- NOTE | 2024-03-26 12:08 | P.PNPSI_ITS ---
Subjective Subjective Date of Service: 03/26/24 Reason For Visit: dementia Subjective Notes: Conditional Voluntary Healthcare Proxy: Yes Interim History: The nursing staff reported no changes in her mental status, she slept 6 hours. The social security assessor reported that they are looking for placement since we have authorization now. On interview the patient denies new symptoms, waiting for placement. Mental Status Exam Mental Status Exam Patient Appearance: Appropriate Patient Orientation: Person and Situation Level of Consciousness: Awake Patient Behavior: Guarded and Passive Mood Description: Withdrawn Affect Description: Constricted Patient Cognition Impaired: Yes Ability to Follow Directions: Good Speech Pattern: Clear Hallucinations: None Delusions: Paranoid Ideation and Ideas of Reference Thought Process: Distracted and Slowed Thinking Thought Content: positive for [place] and positive for Poverty of Content Judgement: Fair Diagnostics Vital Signs (24Hr): Vital Signs - 24 hr 03/25/24 20:00 03/26/24 09:11 03/26/24 09:13 Temperature 97 F 97.1 F Pulse Rate 75 66 Respiratory Rate 16 18 Blood Pressure 114/53 L 107/56 L 107/56 L Pulse Oximetry 97 98 Oxygen Delivery Method Room Air Room Air BMI result Body Mass Index 21.4 Labs 02/01/24 08:26 Medications Medications Current Medications Acetaminophen (Acetaminophen 325 Mg Tablet) 650 mg PO Q6H PRN PRN Reason: Headache/Pain Mild Scale (1-3) Last Admin: 03/08/24 02:00 Dose: 650 mg Al Hydroxide/Mg Hydroxide (Magnesium Hydrox/Alum Hydrox 30 Ml Oral.Susp) 30 ml PO Q6H PRN PRN Reason: Heartburn/Nausea Last Admin: 03/22/24 09:31 Dose: 30 ml Amlodipine Besylate (Amlodipine Besylate 5 Mg Tablet) 5 mg PO DAILY [facility]; Protocol Last Admin: 03/26/24 09:11 Dose: Not Given Atorvastatin Calcium (Atorvastatin Calcium 20 Mg Tablet) 20 mg PO DAILY [facility] Last Admin: 03/26/24 09:10 Dose: 20 mg Benzocaine (Benzocaine 20 % Oral Gel 9 Gm Tube) 1 appl MUCOUS MEM QID PRN; Protocol PRN Reason: Pain, Mild (Pain Scale 1-3) Fludrocortisone Acetate (Fludrocortisone Acetate 0.1 Mg Tablet) 0.1 mg PO BID [facility] Last Admin: 03/26/24 09:10 Dose: 0.1 mg Magnesium Hydroxide (Milk Of Magnesia 30 Ml Oral.Susp) 30 ml PO DAILY PRN PRN Reason: Constipation Olanzapine (Olanzapine Odt 10 Mg Tab.Rapdis) 10 mg TRANSLINGU BID PRN PRN Reason: agitation Last Admin: 03/03/24 09:01 Dose: 10 mg Olanzapine (Olanzapine Odt 10 Mg Tab.Rapdis) 15 mg TRANSLINGU BEDTIME [facility] Last Admin: 03/25/24 21:22 Dose: 15 mg Prednisone (Prednisone 1 Mg Tablet) 1 mg PO DAILY [facility] Last Admin: 03/26/24 09:10 Dose: 1 mg Prednisone (Prednisone 5 Mg Tablet) 5 mg PO DAILY [facility] Last Admin: 03/26/24 09:10 Dose: 5 mg Risperidone (Risperidone 1 Mg Tablet) 1 mg PO TID PRN PRN Reason: psychosis/agitation Last Admin: 03/23/24 20:40 Dose: 1 mg Senna (Sennosides 8.6 Mg Tablet) 17.2 mg PO DAILY [facility] Last Admin: 03/26/24 09:12 Dose: Not Given Trazodone HCl (Trazodone Hcl 50 Mg Tablet) 50 mg PO BEDTIME MRX1 PRN PRN Reason: Insomnia Last Admin: 03/24/24 21:49 Dose: 50 mg Vitamin D (Cholecalciferol (Vitamin D3) 25 Mcg Tablet) 25 mcg PO DAILY [facility] Last Admin: 03/26/24 09:09 Dose: 25 mcg Allergies Allergies Allergy/AdvReac Type Severity Reaction Status Date / Time No Known Allergies Allergy Verified 12/25/23 17:04 Assessment & Plan Assessment & Plan (1) Schizoaffective disorder, depressive type: Status: Acute Code(s): F25.1 - Schizoaffective disorder, depressive type (2) Dementia: Status: Acute Code(s): F03.90 - Unspecified dementia, unspecified severity, without behavioral disturbance, psychotic disturbance, mood disturbance, and anxiety Plan The patient is an elderly female with a past history of schizoaffective disorder bipolar type, cognitive impairment and several medical comorbidities who was initially admitted for psychotic decompensation and needed to be transferred to Medicine due to sepsis. She was medically cleared transferring back into this facility for continuation of care. 02/21/24: Continue to encourage treatment. 02/22 continue tx. 02/23 Continue current regime and plan of care 02/24 Continue current regime and plan of care 02/28/24 Patient highly irritable, paranoid; started screaming at roommate to get out of her room and rushed at a peer; intrusive to this peers. Commercial Construction Estimator tried to discuss this with patient who was guarded and angry. Said she was taking her medication and irritated when telegraphic typewriter installer discussed otherwise. Patient seemed to agreed to get back on clozapine which was restarted 03/09- continue tx. 03/10 continue tx. 03/16/2024: Continue current regimen and plans 03/17/2024: Continue current regimen and plans 03/22/2024: Continue current plan 03/23: continue current management and treatment plan. 03/24: Continue current management and treatment plan. Plan 1. Continue with Zyprexa. 2. Guardianship hearing for placement. 3. Continue with 15 minute checks. 4. We are discontinuing clozapine. Reason for continued inpatient stay Substantial Risk for: inability to function, rapid decompensation and med/psych decompensation Time Spent With Patient Time: Total time managing care of this patient today _20___ minutes.
[2024-03-26 20:00] VITALS: BP 127/63; PULSE 62; RESP 16; TEMP 36.4; O2SAT 96
[2024-03-26] MEDS: OLANZapine ODT 10 MG TAB.RAPDIS 15 MG TRANSLINGU (20:13)
[2024-03-27 07:55] VITALS: BP 140/67; PULSE 69; RESP 18; TEMP 36.8; O2SAT 98
[2024-03-27] MEDS: Sennosides 8.6 MG TABLET 17.2 MG PO (08:06)
[2024-03-27] MEDS: amLODIPine Besylate 5 MG TABLET PO (08:06)
[2024-03-27] MEDS: Atorvastatin Calcium 20 MG TABLET PO (08:06)
[2024-03-27] MEDS: predniSONE 1 MG TABLET PO (08:06)
[2024-03-27] MEDS: Fludrocortisone Acetate 0.1 MG TABLET PO ×2 (08:06→20:26)
[2024-03-27] MEDS: Cholecalciferol (Vitamin D3) 25 MCG TABLET PO (08:06)
[2024-03-27] MEDS: predniSONE 5 MG TABLET PO (08:07)
--- NOTE | 2024-03-27 15:42 | HO.PSYCHPN ---
Subjective Subjective Date of Service: 03/27/24 Reason For Visit: dementia Subjective Notes: Conditional Voluntary Interim History: The nursing staff reported the patient had been isolative no changes in her mental status compliant with treatment. The licensed clinical social worker reported that she had been referred to several placement options. On interview the patient denies new symptoms. Mental Status Exam Mental Status Exam Patient Appearance: Appropriate Patient Orientation: Person and Situation Level of Consciousness: Awake and Appropriate Patient Behavior: Guarded and Passive Mood Description: Withdrawn Affect Description: Constricted Patient Cognition Impaired: Yes Ability to Follow Directions: Good Speech Pattern: Clear Hallucinations: None Delusions: Not Present Thought Process: Distracted and Slowed Thinking Thought Content: positive for [place] and positive for Poverty of Content Judgement: Fair Diagnostics Vital Signs (24Hr): Vital Signs - 24 hr 03/26/24 20:00 03/27/24 07:55 Temperature 97.6 F 98.2 F Pulse Rate 62 69 Respiratory Rate 16 18 Blood Pressure 127/63 140/67 H Pulse Oximetry 96 98 Oxygen Delivery Method Room Air Room Air BMI result Body Mass Index 21.4 Labs 02/01/24 08:26 Medications Medications Current Medications Acetaminophen (Acetaminophen 325 Mg Tablet) 650 mg PO Q6H PRN PRN Reason: Headache/Pain Mild Scale (1-3) Last Admin: 03/08/24 02:00 Dose: 650 mg Al Hydroxide/Mg Hydroxide (Magnesium Hydrox/Alum Hydrox 30 Ml Oral.Susp) 30 ml PO Q6H PRN PRN Reason: Heartburn/Nausea Last Admin: 03/22/24 09:31 Dose: 30 ml Amlodipine Besylate (Amlodipine Besylate 5 Mg Tablet) 5 mg PO DAILY [facility]; Protocol Last Admin: 03/27/24 08:06 Dose: 5 mg Atorvastatin Calcium (Atorvastatin Calcium 20 Mg Tablet) 20 mg PO DAILY [facility] Last Admin: 03/27/24 08:06 Dose: 20 mg Benzocaine (Benzocaine 20 % Oral Gel 9 Gm Tube) 1 appl MUCOUS MEM QID PRN; Protocol PRN Reason: Pain, Mild (Pain Scale 1-3) Fludrocortisone Acetate (Fludrocortisone Acetate 0.1 Mg Tablet) 0.1 mg PO BID [facility] Last Admin: 03/27/24 08:06 Dose: 0.1 mg Magnesium Hydroxide (Milk Of Magnesia 30 Ml Oral.Susp) 30 ml PO DAILY PRN PRN Reason: Constipation Olanzapine (Olanzapine Odt 10 Mg Tab.Rapdis) 10 mg TRANSLINGU BID PRN PRN Reason: agitation Last Admin: 03/03/24 09:01 Dose: 10 mg Olanzapine (Olanzapine Odt 10 Mg Tab.Rapdis) 15 mg TRANSLINGU BEDTIME [facility] Last Admin: 03/26/24 20:13 Dose: 15 mg Prednisone (Prednisone 1 Mg Tablet) 1 mg PO DAILY [facility] Last Admin: 03/27/24 08:06 Dose: 1 mg Prednisone (Prednisone 5 Mg Tablet) 5 mg PO DAILY [facility] Last Admin: 03/27/24 08:07 Dose: 5 mg Risperidone (Risperidone 1 Mg Tablet) 1 mg PO TID PRN PRN Reason: psychosis/agitation Last Admin: 03/23/24 20:40 Dose: 1 mg Senna (Sennosides 8.6 Mg Tablet) 17.2 mg PO DAILY [facility] Last Admin: 03/27/24 08:06 Dose: 17.2 mg Trazodone HCl (Trazodone Hcl 50 Mg Tablet) 50 mg PO BEDTIME MRX1 PRN PRN Reason: Insomnia Last Admin: 03/24/24 21:49 Dose: 50 mg Vitamin D (Cholecalciferol (Vitamin D3) 25 Mcg Tablet) 25 mcg PO DAILY [facility] Last Admin: 03/27/24 08:06 Dose: 25 mcg Allergies Allergies Allergy/AdvReac Type Severity Reaction Status Date / Time No Known Allergies Allergy Verified 12/25/23 17:04 Assessment & Plan Assessment & Plan (1) Schizoaffective disorder, depressive type: Status: Acute Code(s): F25.1 - Schizoaffective disorder, depressive type (2) Dementia: Status: Acute Code(s): F03.90 - Unspecified dementia, unspecified severity, without behavioral disturbance, psychotic disturbance, mood disturbance, and anxiety Plan The patient is an elderly female with a past history of schizoaffective disorder bipolar type, cognitive impairment and several medical comorbidities who was initially admitted for psychotic decompensation and needed to be transferred to Medicine due to sepsis. She was medically cleared transferring back into this facility for continuation of care. 02/21/24: Continue to encourage treatment. 02/22 continue tx. 02/23 Continue current regime and plan of care 02/24 Continue current regime and plan of care 02/28/24 Patient highly irritable, paranoid; started screaming at roommate to get out of her room and rushed at a peer; intrusive to this peers. Consulting Sme tried to discuss this with patient who was guarded and angry. Said she was taking her medication and irritated when junior underwriter discussed otherwise. Patient seemed to agreed to get back on clozapine which was restarted 03/09- continue tx. 03/10 continue tx. 03/16/2024: Continue current regimen and plans 03/17/2024: Continue current regimen and plans 03/22/2024: Continue current plan 03/23: continue current management and treatment plan. 03/24: Continue current management and treatment plan. Plan 1. Continue with Zyprexa. 2. Guardianship hearing for placement. 3. Continue with 15 minute checks. 4. We are discontinuing clozapine. Reason for continued inpatient stay Substantial Risk for: inability to function, rapid decompensation and med/psych decompensation Time Spent With Patient Time: Total time managing care of this patient today __20__ minutes.
[2024-03-27 20:00] VITALS: BP 135/67; PULSE 70; RESP 16; TEMP 36.4; O2SAT 97
[2024-03-27] MEDS: OLANZapine ODT 10 MG TAB.RAPDIS 15 MG TRANSLINGU (20:25)
[2024-03-28 08:49] VITALS: BP 140/70; PULSE 66; RESP 18; TEMP 36.3; O2SAT 100
[2024-03-28] MEDS: Atorvastatin Calcium 20 MG TABLET PO (08:54)
[2024-03-28] MEDS: predniSONE 5 MG TABLET PO (08:54)
[2024-03-28] MEDS: Fludrocortisone Acetate 0.1 MG TABLET PO ×2 (08:54→20:52)
[2024-03-28] MEDS: Cholecalciferol (Vitamin D3) 25 MCG TABLET PO (08:54)
[2024-03-28] MEDS: predniSONE 1 MG TABLET PO (08:54)
[2024-03-28] MEDS: amLODIPine Besylate 5 MG TABLET PO (08:54)
[2024-03-28 14:58] VITALS: BMI 23.5
--- NOTE | 2024-03-28 16:33 | P.PNPSI_ITS ---
Subjective Subjective Date of Service: 03/28/24 Reason For Visit: dementia Subjective Notes: Conditional Voluntary Interim History: The nursing staff reported no changes in her mental status, slept 7 hours. On interview the patient denies new symptoms, waiting for placement. Mental Status Exam Mental Status Exam Patient Appearance: Appropriate Patient Orientation: Person and Situation Level of Consciousness: Awake and Appropriate Patient Behavior: Guarded and Passive Mood Description: Withdrawn Affect Description: Constricted Patient Cognition Impaired: Yes Ability to Follow Directions: Good Speech Pattern: Clear Hallucinations: None Delusions: Not Present Thought Process: Distracted and Slowed Thinking Thought Content: positive for [place] and positive for Poverty of Content Judgement: Fair Diagnostics Vital Signs (24Hr): Vital Signs - 24 hr 03/27/24 20:00 03/28/24 08:49 Temperature 97.6 F 97.3 F Pulse Rate 70 66 Respiratory Rate 16 18 Blood Pressure 135/67 140/70 H Pulse Oximetry 97 100 Oxygen Delivery Method Room Air Room Air BMI result Body Mass Index 23.5 Labs 02/01/24 08:26 Medications Medications Current Medications Acetaminophen (Acetaminophen 325 Mg Tablet) 650 mg PO Q6H PRN PRN Reason: Headache/Pain Mild Scale (1-3) Last Admin: 03/08/24 02:00 Dose: 650 mg Al Hydroxide/Mg Hydroxide (Magnesium Hydrox/Alum Hydrox 30 Ml Oral.Susp) 30 ml PO Q6H PRN PRN Reason: Heartburn/Nausea Last Admin: 03/22/24 09:31 Dose: 30 ml Amlodipine Besylate (Amlodipine Besylate 5 Mg Tablet) 5 mg PO DAILY [facility]; Protocol Last Admin: 03/28/24 08:54 Dose: 5 mg Atorvastatin Calcium (Atorvastatin Calcium 20 Mg Tablet) 20 mg PO DAILY [facility] Last Admin: 03/28/24 08:54 Dose: 20 mg Benzocaine (Benzocaine 20 % Oral Gel 9 Gm Tube) 1 appl MUCOUS MEM QID PRN; Protocol PRN Reason: Pain, Mild (Pain Scale 1-3) Fludrocortisone Acetate (Fludrocortisone Acetate 0.1 Mg Tablet) 0.1 mg PO BID [facility] Last Admin: 03/28/24 08:54 Dose: 0.1 mg Magnesium Hydroxide (Milk Of Magnesia 30 Ml Oral.Susp) 30 ml PO DAILY PRN PRN Reason: Constipation Olanzapine (Olanzapine Odt 10 Mg Tab.Rapdis) 10 mg TRANSLINGU BID PRN PRN Reason: agitation Last Admin: 03/03/24 09:01 Dose: 10 mg Olanzapine (Olanzapine Odt 10 Mg Tab.Rapdis) 15 mg TRANSLINGU BEDTIME [facility] Last Admin: 03/27/24 20:25 Dose: 15 mg Prednisone (Prednisone 1 Mg Tablet) 1 mg PO DAILY [facility] Last Admin: 03/28/24 08:54 Dose: 1 mg Prednisone (Prednisone 5 Mg Tablet) 5 mg PO DAILY [facility] Last Admin: 03/28/24 08:54 Dose: 5 mg Risperidone (Risperidone 1 Mg Tablet) 1 mg PO TID PRN PRN Reason: psychosis/agitation Last Admin: 03/23/24 20:40 Dose: 1 mg Senna (Sennosides 8.6 Mg Tablet) 17.2 mg PO DAILY [facility] Last Admin: 03/28/24 08:54 Dose: Not Given Trazodone HCl (Trazodone Hcl 50 Mg Tablet) 50 mg PO BEDTIME MRX1 PRN PRN Reason: Insomnia Last Admin: 03/24/24 21:49 Dose: 50 mg Vitamin D (Cholecalciferol (Vitamin D3) 25 Mcg Tablet) 25 mcg PO DAILY [facility] Last Admin: 03/28/24 08:54 Dose: 25 mcg Allergies Allergies Allergy/AdvReac Type Severity Reaction Status Date / Time No Known Allergies Allergy Verified 12/25/23 17:04 Assessment & Plan Assessment & Plan (1) Schizoaffective disorder, depressive type: Status: Acute Code(s): F25.1 - Schizoaffective disorder, depressive type (2) Dementia: Status: Acute Code(s): F03.90 - Unspecified dementia, unspecified severity, without behavioral disturbance, psychotic disturbance, mood disturbance, and anxiety Plan The patient is an elderly female with a past history of schizoaffective disorder bipolar type, cognitive impairment and several medical comorbidities who was initially admitted for psychotic decompensation and needed to be transferred to Medicine due to sepsis. She was medically cleared transferring back into this facility for continuation of care. 02/21/24: Continue to encourage treatment. 02/22 continue tx. 02/23 Continue current regime and plan of care 02/24 Continue current regime and plan of care 02/28/24 Patient highly irritable, paranoid; started screaming at roommate to get out of her room and rushed at a peer; intrusive to this peers. Rotary Rig Engine Operator tried to discuss this with patient who was guarded and angry. Said she was taking her medication and irritated when lead technical writer discussed otherwise. Patient seemed to agreed to get back on clozapine which was restarted 03/09- continue tx. 03/10 continue tx. 03/16/2024: Continue current regimen and plans 03/17/2024: Continue current regimen and plans 03/22/2024: Continue current plan 03/23: continue current management and treatment plan. 03/24: Continue current management and treatment plan. Plan 1. Continue with Zyprexa. 2. Guardianship hearing for placement. 3. Continue with 15 minute checks. 4. We are discontinuing clozapine. Reason for continued inpatient stay Substantial Risk for: inability to function, rapid decompensation and med/psych decompensation Time Spent With Patient Time: Total time managing care of this patient today __20__ minutes.
[2024-03-28 20:00] VITALS: BP 117/67; PULSE 78; RESP 16; TEMP 36.1; O2SAT 98
[2024-03-28] MEDS: traZODone HCL 50 MG TABLET PO (20:52)
[2024-03-28] MEDS: OLANZapine ODT 10 MG TAB.RAPDIS 15 MG TRANSLINGU (20:53)
[2024-03-29 08:45] VITALS: BP 143/69; PULSE 61; RESP 18; TEMP 36.2; O2SAT 98
[2024-03-29 09:15] VITALS: BP 143/69
[2024-03-29] MEDS: Atorvastatin Calcium 20 MG TABLET PO (09:15)
[2024-03-29] MEDS: amLODIPine Besylate 5 MG TABLET PO (09:15)
[2024-03-29] MEDS: Cholecalciferol (Vitamin D3) 25 MCG TABLET PO (11:16)
[2024-03-29] MEDS: Fludrocortisone Acetate 0.1 MG TABLET PO ×2 (11:17→20:26)
[2024-03-29] MEDS: predniSONE 1 MG TABLET PO (11:17)
[2024-03-29] MEDS: predniSONE 5 MG TABLET PO (11:18)
--- NOTE | 2024-03-29 14:22 | P.PNPSI_ITS ---
Subjective Subjective Date of Service: 03/29/24 Reason For Visit: dementia Subjective Notes: Conditional Voluntary Healthcare Proxy: Yes Interim History: The nursing staff reported no changes in her mental status compliant with treatment. On interview the patient denies new symptoms. Mental Status Exam Mental Status Exam Patient Appearance: Appropriate Patient Orientation: Person and Situation Level of Consciousness: Awake and Appropriate Patient Behavior: Guarded and Passive Mood Description: Withdrawn Affect Description: Constricted Patient Cognition Impaired: Yes Ability to Follow Directions: Good Speech Pattern: Clear Hallucinations: None Delusions: Paranoid Ideation and Ideas of Reference Thought Process: Distracted and Slowed Thinking Thought Content: positive for [place] Judgement: Fair Diagnostics Vital Signs (24Hr): Vital Signs - 24 hr 03/28/24 20:00 03/29/24 08:45 03/29/24 09:15 Temperature 97 F 97.1 F Pulse Rate 78 61 Respiratory Rate 16 18 Blood Pressure 117/67 143/69 H 143/69 H Pulse Oximetry 98 98 Oxygen Delivery Method Room Air Room Air BMI result Body Mass Index 23.5 Labs 02/01/24 08:26 Medications Medications Current Medications Acetaminophen (Acetaminophen 325 Mg Tablet) 650 mg PO Q6H PRN PRN Reason: Headache/Pain Mild Scale (1-3) Last Admin: 03/08/24 02:00 Dose: 650 mg Al Hydroxide/Mg Hydroxide (Magnesium Hydrox/Alum Hydrox 30 Ml Oral.Susp) 30 ml PO Q6H PRN PRN Reason: Heartburn/Nausea Last Admin: 03/22/24 09:31 Dose: 30 ml Amlodipine Besylate (Amlodipine Besylate 5 Mg Tablet) 5 mg PO DAILY [facility]; Protocol Last Admin: 03/29/24 09:15 Dose: 5 mg Atorvastatin Calcium (Atorvastatin Calcium 20 Mg Tablet) 20 mg PO DAILY [facility] Last Admin: 03/29/24 09:15 Dose: 20 mg Benzocaine (Benzocaine 20 % Oral Gel 9 Gm Tube) 1 appl MUCOUS MEM QID PRN; Protocol PRN Reason: Pain, Mild (Pain Scale 1-3) Fludrocortisone Acetate (Fludrocortisone Acetate 0.1 Mg Tablet) 0.1 mg PO BID [facility] Last Admin: 03/29/24 11:17 Dose: 0.1 mg Magnesium Hydroxide (Milk Of Magnesia 30 Ml Oral.Susp) 30 ml PO DAILY PRN PRN Reason: Constipation Olanzapine (Olanzapine Odt 10 Mg Tab.Rapdis) 10 mg TRANSLINGU BID PRN PRN Reason: agitation Last Admin: 03/03/24 09:01 Dose: 10 mg Olanzapine (Olanzapine Odt 10 Mg Tab.Rapdis) 15 mg TRANSLINGU BEDTIME [facility] Last Admin: 03/28/24 20:53 Dose: 15 mg Prednisone (Prednisone 1 Mg Tablet) 1 mg PO DAILY [facility] Last Admin: 03/29/24 11:17 Dose: 1 mg Prednisone (Prednisone 5 Mg Tablet) 5 mg PO DAILY [facility] Last Admin: 03/29/24 11:18 Dose: 5 mg Risperidone (Risperidone 1 Mg Tablet) 1 mg PO TID PRN PRN Reason: psychosis/agitation Last Admin: 03/23/24 20:40 Dose: 1 mg Senna (Sennosides 8.6 Mg Tablet) 17.2 mg PO DAILY [facility] Last Admin: 03/29/24 11:18 Dose: Not Given Trazodone HCl (Trazodone Hcl 50 Mg Tablet) 50 mg PO BEDTIME MRX1 PRN PRN Reason: Insomnia Last Admin: 03/28/24 20:52 Dose: 50 mg Vitamin D (Cholecalciferol (Vitamin D3) 25 Mcg Tablet) 25 mcg PO DAILY [facility] Last Admin: 03/29/24 11:16 Dose: 25 mcg Allergies Allergies Allergy/AdvReac Type Severity Reaction Status Date / Time No Known Allergies Allergy Verified 12/25/23 17:04 Assessment & Plan Assessment & Plan (1) Schizoaffective disorder, depressive type: Status: Acute Code(s): F25.1 - Schizoaffective disorder, depressive type (2) Dementia: Status: Acute Code(s): F03.90 - Unspecified dementia, unspecified severity, without behavioral disturbance, psychotic disturbance, mood disturbance, and anxiety Plan The patient is an elderly female with a past history of schizoaffective disorder bipolar type, cognitive impairment and several medical comorbidities who was initially admitted for psychotic decompensation and needed to be transferred to Medicine due to sepsis. She was medically cleared transferring back into this facility for continuation of care. 02/21/24: Continue to encourage treatment. 02/22 continue tx. 02/23 Continue current regime and plan of care 02/24 Continue current regime and plan of care 02/28/24 Patient highly irritable, paranoid; started screaming at roommate to get out of her room and rushed at a peer; intrusive to this peers. Asphalt Mixer tried to discuss this with patient who was guarded and angry. Said she was taking her medication and irritated when teletypewriter installer discussed otherwise. Patient seemed to agreed to get back on clozapine which was restarted 03/09- continue tx. 03/10 continue tx. 03/16/2024: Continue current regimen and plans 03/17/2024: Continue current regimen and plans 03/22/2024: Continue current plan 03/23: continue current management and treatment plan. 03/24: Continue current management and treatment plan. Plan 1. Continue with Zyprexa. 2. Guardianship hearing for placement. 3. Continue with 15 minute checks. 4. We are discontinuing clozapine. Reason for continued inpatient stay Substantial Risk for: inability to function, rapid decompensation and med/psych decompensation Time Spent With Patient Time: Total time managing care of this patient today __20__ minutes.
[2024-03-29 19:20] VITALS: BP 119/61; PULSE 74; TEMP 36.6; O2SAT 97
[2024-03-29] MEDS: OLANZapine ODT 10 MG TAB.RAPDIS 15 MG TRANSLINGU (20:27)
[2024-03-30 07:55] VITALS: BP 133/70; PULSE 68; RESP 16; TEMP 36; O2SAT 98
[2024-03-30] MEDS: predniSONE 5 MG TABLET PO (08:04)
[2024-03-30] MEDS: Fludrocortisone Acetate 0.1 MG TABLET PO ×2 (08:04→20:44)
[2024-03-30] MEDS: predniSONE 1 MG TABLET PO (08:04)
[2024-03-30] MEDS: Atorvastatin Calcium 20 MG TABLET PO (08:04)
[2024-03-30] MEDS: amLODIPine Besylate 5 MG TABLET PO (08:05)
[2024-03-30] MEDS: Cholecalciferol (Vitamin D3) 25 MCG TABLET PO (08:05)
--- NOTE | 2024-03-30 19:08 | HO.PSYCHPN ---
Subjective Subjective Date of Service: 03/30/24 Reason For Visit: dementia Subjective Notes: Conditional Voluntary Healthcare Proxy: Yes Interim History: Patient seen, chart reviewed case reviewed with nursing staff The nursing staff reported no major changes. Patient Flattening withdrawn does come out for meals Medication Compliance: Yes Mental Status Exam Mental Status Exam Patient Appearance: Appropriate Patient Orientation: Person and Situation Level of Consciousness: Awake and Appropriate Patient Behavior: Guarded and Passive Mood Description: Withdrawn Affect Description: Constricted Patient Cognition Impaired: Yes Ability to Follow Directions: Good Speech Pattern: Clear Hallucinations: None Delusions: Paranoid Ideation and Ideas of Reference Thought Process: Distracted and Slowed Thinking Thought Content: positive for [place] Abnormal Motor Activity Signs and Symptoms: Psychomotor Retardation Judgement: Fair Diagnostics Vital Signs (24Hr): Vital Signs - 24 hr 03/29/24 19:20 03/30/24 07:55 Temperature 97.9 F 96.8 F Pulse Rate 74 68 Respiratory Rate 16 Blood Pressure 119/61 133/70 Pulse Oximetry 97 98 Oxygen Delivery Method Room Air BMI result Body Mass Index 23.5 Labs 02/01/24 08:26 Medications Medications Current Medications Acetaminophen (Acetaminophen 325 Mg Tablet) 650 mg PO Q6H PRN PRN Reason: Headache/Pain Mild Scale (1-3) Last Admin: 03/08/24 02:00 Dose: 650 mg Al Hydroxide/Mg Hydroxide (Magnesium Hydrox/Alum Hydrox 30 Ml Oral.Susp) 30 ml PO Q6H PRN PRN Reason: Heartburn/Nausea Last Admin: 03/22/24 09:31 Dose: 30 ml Amlodipine Besylate (Amlodipine Besylate 5 Mg Tablet) 5 mg PO DAILY [facility]; Protocol Last Admin: 03/30/24 08:05 Dose: 5 mg Atorvastatin Calcium (Atorvastatin Calcium 20 Mg Tablet) 20 mg PO DAILY [facility] Last Admin: 03/30/24 08:04 Dose: 20 mg Benzocaine (Benzocaine 20 % Oral Gel 9 Gm Tube) 1 appl MUCOUS MEM QID PRN; Protocol PRN Reason: Pain, Mild (Pain Scale 1-3) Fludrocortisone Acetate (Fludrocortisone Acetate 0.1 Mg Tablet) 0.1 mg PO BID [facility] Last Admin: 03/30/24 08:04 Dose: 0.1 mg Magnesium Hydroxide (Milk Of Magnesia 30 Ml Oral.Susp) 30 ml PO DAILY PRN PRN Reason: Constipation Olanzapine (Olanzapine Odt 10 Mg Tab.Rapdis) 10 mg TRANSLINGU BID PRN PRN Reason: agitation Last Admin: 03/03/24 09:01 Dose: 10 mg Olanzapine (Olanzapine Odt 10 Mg Tab.Rapdis) 15 mg TRANSLINGU BEDTIME [facility] Last Admin: 03/29/24 20:27 Dose: 15 mg Prednisone (Prednisone 1 Mg Tablet) 1 mg PO DAILY [facility] Last Admin: 03/30/24 08:04 Dose: 1 mg Prednisone (Prednisone 5 Mg Tablet) 5 mg PO DAILY [facility] Last Admin: 03/30/24 08:04 Dose: 5 mg Risperidone (Risperidone 1 Mg Tablet) 1 mg PO TID PRN PRN Reason: psychosis/agitation Last Admin: 03/23/24 20:40 Dose: 1 mg Senna (Sennosides 8.6 Mg Tablet) 17.2 mg PO DAILY [facility] Last Admin: 03/30/24 08:05 Dose: Not Given Trazodone HCl (Trazodone Hcl 50 Mg Tablet) 50 mg PO BEDTIME MRX1 PRN PRN Reason: Insomnia Last Admin: 03/28/24 20:52 Dose: 50 mg Vitamin D (Cholecalciferol (Vitamin D3) 25 Mcg Tablet) 25 mcg PO DAILY [facility] Last Admin: 03/30/24 08:05 Dose: 25 mcg Allergies Allergies Allergy/AdvReac Type Severity Reaction Status Date / Time No Known Allergies Allergy Verified 12/25/23 17:04 Assessment & Plan Assessment & Plan (1) Schizoaffective disorder, depressive type: Status: Acute Code(s): F25.1 - Schizoaffective disorder, depressive type (2) Dementia: Status: Acute Code(s): F03.90 - Unspecified dementia, unspecified severity, without behavioral disturbance, psychotic disturbance, mood disturbance, and anxiety Plan The patient is an elderly female with a past history of schizoaffective disorder bipolar type, cognitive impairment and several medical comorbidities who was initially admitted for psychotic decompensation and needed to be transferred to Medicine due to sepsis. She was medically cleared transferring back into this facility for continuation of care. 02/21/24: Continue to encourage treatment. 02/22 continue tx. 02/23 Continue current regime and plan of care 02/24 Continue current regime and plan of care 02/28/24 Patient highly irritable, paranoid; started screaming at roommate to get out of her room and rushed at a peer; intrusive to this peers. Director Trading tried to discuss this with patient who was guarded and angry. Said she was taking her medication and irritated when machine sign writer discussed otherwise. Patient seemed to agreed to get back on clozapine which was restarted 03/09- continue tx. 03/10 continue tx. 03/16/2024: Continue current regimen and plans 03/17/2024: Continue current regimen and plans 03/22/2024: Continue current plan 03/23: continue current management and treatment plan. 03/24: Continue current management and treatment plan. Plan 1. Continue with Zyprexa. 2. Guardianship hearing for placement. 3. Continue with 15 minute checks. 4. We are discontinuing clozapine. 03/30/2024 Patient not grossly agitated. Generally accepting treatment had some irritability Reason for continued inpatient stay Substantial Risk for: inability to function, rapid decompensation and med/psych decompensation Time Spent With Patient Time: Total time managing care of this patient today ____ minutes.
[2024-03-30 20:00] VITALS: BP 118/57; PULSE 58; RESP 16; TEMP 36.3; O2SAT 98
[2024-03-30] MEDS: OLANZapine ODT 10 MG TAB.RAPDIS 15 MG TRANSLINGU (20:44)
[2024-03-31 07:55] VITALS: BP 129/62; PULSE 60; RESP 18; TEMP 36.3; O2SAT 98
[2024-03-31] MEDS: predniSONE 5 MG TABLET PO (08:34)
[2024-03-31] MEDS: predniSONE 1 MG TABLET PO (08:34)
[2024-03-31] MEDS: Atorvastatin Calcium 20 MG TABLET PO (08:34)
[2024-03-31] MEDS: Fludrocortisone Acetate 0.1 MG TABLET PO ×2 (08:34→20:14)
[2024-03-31] MEDS: amLODIPine Besylate 5 MG TABLET PO (08:34)
[2024-03-31] MEDS: Cholecalciferol (Vitamin D3) 25 MCG TABLET PO (08:34)
[2024-03-31 20:00] VITALS: BP 112/61; PULSE 77; RESP 18; TEMP 36.4; O2SAT 97
[2024-03-31] MEDS: OLANZapine ODT 10 MG TAB.RAPDIS 15 MG TRANSLINGU (20:14)
--- NOTE | 2024-03-31 20:26 | HO.PSYCHPN ---
Subjective Subjective Date of Service: 03/31/24 Reason For Visit: dementia psychosis Subjective Notes: Conditional Voluntary Healthcare Proxy: Yes Interim History: Patient seen, chart reviewed case reviewed with nursing staff The nursing staff reported no major changes. Patient remains somewhat isolative withdrawn dysphoric not grossly agitated Noted hypokalemia in January Medication Compliance: Yes Mental Status Exam Mental Status Exam Patient Appearance: Appropriate Patient Orientation: Person and Situation Level of Consciousness: Awake and Appropriate Patient Behavior: Guarded, Passive and Avoidant Mood Description: Withdrawn and Constricted Affect Description: Constricted Patient Cognition Impaired: Yes Ability to Follow Directions: Good Speech Pattern: Clear and Monotone Hallucinations: None Delusions: Paranoid Ideation and Ideas of Reference Thought Process: Distracted and Slowed Thinking Thought Content: positive for [place] Abnormal Motor Activity Signs and Symptoms: Psychomotor Retardation Judgement: Fair Diagnostics Vital Signs (24Hr): Vital Signs - 24 hr 03/31/24 07:55 Temperature 97.3 F Pulse Rate 60 Respiratory Rate 18 Blood Pressure 129/62 Pulse Oximetry 98 Oxygen Delivery Method Room Air BMI result Body Mass Index 23.5 Labs 02/01/24 08:26 Medications Medications Current Medications Acetaminophen (Acetaminophen 325 Mg Tablet) 650 mg PO Q6H PRN PRN Reason: Headache/Pain Mild Scale (1-3) Last Admin: 03/08/24 02:00 Dose: 650 mg Al Hydroxide/Mg Hydroxide (Magnesium Hydrox/Alum Hydrox 30 Ml Oral.Susp) 30 ml PO Q6H PRN PRN Reason: Heartburn/Nausea Last Admin: 03/22/24 09:31 Dose: 30 ml Amlodipine Besylate (Amlodipine Besylate 5 Mg Tablet) 5 mg PO DAILY [facility]; Protocol Last Admin: 03/31/24 08:34 Dose: 5 mg Atorvastatin Calcium (Atorvastatin Calcium 20 Mg Tablet) 20 mg PO DAILY [facility] Last Admin: 03/31/24 08:34 Dose: 20 mg Benzocaine (Benzocaine 20 % Oral Gel 9 Gm Tube) 1 appl MUCOUS MEM QID PRN; Protocol PRN Reason: Pain, Mild (Pain Scale 1-3) Fludrocortisone Acetate (Fludrocortisone Acetate 0.1 Mg Tablet) 0.1 mg PO BID [facility] Last Admin: 03/31/24 20:14 Dose: 0.1 mg Magnesium Hydroxide (Milk Of Magnesia 30 Ml Oral.Susp) 30 ml PO DAILY PRN PRN Reason: Constipation Olanzapine (Olanzapine Odt 10 Mg Tab.Rapdis) 10 mg TRANSLINGU BID PRN PRN Reason: agitation Last Admin: 03/03/24 09:01 Dose: 10 mg Olanzapine (Olanzapine Odt 10 Mg Tab.Rapdis) 15 mg TRANSLINGU BEDTIME [facility] Last Admin: 03/31/24 20:14 Dose: 15 mg Prednisone (Prednisone 1 Mg Tablet) 1 mg PO DAILY [facility] Last Admin: 03/31/24 08:34 Dose: 1 mg Prednisone (Prednisone 5 Mg Tablet) 5 mg PO DAILY [facility] Last Admin: 03/31/24 08:34 Dose: 5 mg Risperidone (Risperidone 1 Mg Tablet) 1 mg PO TID PRN PRN Reason: psychosis/agitation Last Admin: 03/23/24 20:40 Dose: 1 mg Senna (Sennosides 8.6 Mg Tablet) 17.2 mg PO DAILY [facility] Last Admin: 03/31/24 10:03 Dose: Not Given Trazodone HCl (Trazodone Hcl 50 Mg Tablet) 50 mg PO BEDTIME MRX1 PRN PRN Reason: Insomnia Last Admin: 03/28/24 20:52 Dose: 50 mg Vitamin D (Cholecalciferol (Vitamin D3) 25 Mcg Tablet) 25 mcg PO DAILY [facility] Last Admin: 03/31/24 08:34 Dose: 25 mcg Allergies Allergies Allergy/AdvReac Type Severity Reaction Status Date / Time No Known Allergies Allergy Verified 12/25/23 17:04 Assessment & Plan Assessment & Plan (1) Schizoaffective disorder, depressive type: Status: Acute Code(s): F25.1 - Schizoaffective disorder, depressive type (2) Dementia: Status: Acute Code(s): F03.90 - Unspecified dementia, unspecified severity, without behavioral disturbance, psychotic disturbance, mood disturbance, and anxiety Plan The patient is an elderly female with a past history of schizoaffective disorder bipolar type, cognitive impairment and several medical comorbidities who was initially admitted for psychotic decompensation and needed to be transferred to Medicine due to sepsis. She was medically cleared transferring back into this facility for continuation of care. 02/21/24: Continue to encourage treatment. 02/22 continue tx. 02/23 Continue current regime and plan of care 02/24 Continue current regime and plan of care 02/28/24 Patient highly irritable, paranoid; started screaming at roommate to get out of her room and rushed at a peer; intrusive to this peers. Certified Pathology Assistant tried to discuss this with patient who was guarded and angry. Said she was taking her medication and irritated when proposal lead writer discussed otherwise. Patient seemed to agreed to get back on clozapine which was restarted 03/09- continue tx. 03/10 continue tx. 03/16/2024: Continue current regimen and plans 03/17/2024: Continue current regimen and plans 03/22/2024: Continue current plan 03/23: continue current management and treatment plan. 03/24: Continue current management and treatment plan. Plan 1. Continue with Zyprexa. 2. Guardianship hearing for placement. 3. Continue with 15 minute checks. 4. We are discontinuing clozapine. 03/30/2024 Patient not grossly agitated. Generally accepting treatment had some irritability 2/2 Recheck potassium in the morning consider lowering dose of olanzapine may be contributing to isolation Informed Consent: further education needed Reason for continued inpatient stay Substantial Risk for: inability to function, rapid decompensation and med/psych decompensation Time Spent With Patient Time: Total time managing care of this patient today ____ minutes.
[2024-04-01 07:44] LABS: Alanine Aminotransferase 9 U/L (0-31); Albumin Level 3.3 g/dL (3.5-5.0); Alkaline Phosphatase 74 U/L (39-117); Anion Gap 13 (12-20); Aspartate Amino Transferase 17 U/L (5-31); Bilirubin Total 0.4 mg/dL (0.0-1.0); Blood Urea Nitrogen 19 mg/dL (9-16); Calcium 8.9 mg/dL (8.4-10.2); Carbon Dioxide 24 mmol/L (22-29); Chloride 109 mmol/L (96-108); Creatinine Clr Calc Pharmacy 76.2; Estimated Glomerular Filt Rate > 60; Glucose Fasting 90 mg/dL (60-99); Potassium 3.5 mmol/L (3.3-5.1); Sodium 142 mmol/L (135-145); Total Protein 6.1 g/dL (6.5-8.0)
[2024-04-01 08:00] VITALS: BP 114/57; PULSE 65; RESP 18; TEMP 36.3; O2SAT 99
[2024-04-01] MEDS: predniSONE 1 MG TABLET PO (08:58)
[2024-04-01] MEDS: amLODIPine Besylate 5 MG TABLET PO (08:58)
[2024-04-01] MEDS: Cholecalciferol (Vitamin D3) 25 MCG TABLET PO (08:58)
[2024-04-01] MEDS: predniSONE 5 MG TABLET PO (08:58)
[2024-04-01] MEDS: Fludrocortisone Acetate 0.1 MG TABLET PO ×2 (08:58→20:34)
[2024-04-01] MEDS: Atorvastatin Calcium 20 MG TABLET PO (08:58)
--- NOTE | 2024-04-01 15:11 | P.PNPSI_ITS ---
Subjective Subjective Date of Service: 04/01/24 Reason For Visit: dementia psychosis Subjective Notes: Conditional Voluntary Interim History: The nursing staff reported no changes in her mental status compliant with treatment. On interview the patient denies new symptoms. Waiting for information of healthcare proxy for placement Mental Status Exam Mental Status Exam Patient Appearance: Appropriate Patient Orientation: Person and Situation Level of Consciousness: Awake Patient Behavior: Guarded and Passive Mood Description: Withdrawn Affect Description: Constricted Patient Cognition Impaired: Yes Ability to Follow Directions: Good Speech Pattern: Clear Hallucinations: None Delusions: Ideas of Reference Thought Process: Distracted and Slowed Thinking Thought Content: positive for [place] and positive for Poverty of Content Judgement: Poor Diagnostics Vital Signs (24Hr): Vital Signs - 24 hr 03/31/24 20:00 04/01/24 08:00 Temperature 97.5 F 97.3 F Pulse Rate 77 65 Respiratory Rate 18 18 Blood Pressure 112/61 114/57 L Pulse Oximetry 97 99 Oxygen Delivery Method Room Air Room Air BMI result Body Mass Index 23.5 Labs 04/01/24 07:18 Labs: Laboratory Results - last 48 hr 04/01/24 07:18 Sodium 142 Potassium 3.5 Chloride 109 H Carbon Dioxide 24 Anion Gap 13 BUN 19 H Creatinine 0.60 Estim Creat Clear Calc 76.2 Estimated GFR > 60 Fasting Glucose 90 Calcium 8.9 Total Bilirubin 0.4 AST 17 ALT 9 Alkaline Phosphatase 74 Total Protein 6.1 L Albumin 3.3 L Medications Medications Current Medications Acetaminophen (Acetaminophen 325 Mg Tablet) 650 mg PO Q6H PRN PRN Reason: Headache/Pain Mild Scale (1-3) Last Admin: 03/08/24 02:00 Dose: 650 mg Al Hydroxide/Mg Hydroxide (Magnesium Hydrox/Alum Hydrox 30 Ml Oral.Susp) 30 ml PO Q6H PRN PRN Reason: Heartburn/Nausea Last Admin: 03/22/24 09:31 Dose: 30 ml Amlodipine Besylate (Amlodipine Besylate 5 Mg Tablet) 5 mg PO DAILY [facility]; Protocol Last Admin: 04/01/24 08:58 Dose: 5 mg Atorvastatin Calcium (Atorvastatin Calcium 20 Mg Tablet) 20 mg PO DAILY [facility] Last Admin: 04/01/24 08:58 Dose: 20 mg Benzocaine (Benzocaine 20 % Oral Gel 9 Gm Tube) 1 appl MUCOUS MEM QID PRN; Protocol PRN Reason: Pain, Mild (Pain Scale 1-3) Fludrocortisone Acetate (Fludrocortisone Acetate 0.1 Mg Tablet) 0.1 mg PO BID [facility] Last Admin: 04/01/24 08:58 Dose: 0.1 mg Magnesium Hydroxide (Milk Of Magnesia 30 Ml Oral.Susp) 30 ml PO DAILY PRN PRN Reason: Constipation Olanzapine (Olanzapine Odt 10 Mg Tab.Rapdis) 10 mg TRANSLINGU BID PRN PRN Reason: agitation Last Admin: 03/03/24 09:01 Dose: 10 mg Olanzapine (Olanzapine Odt 10 Mg Tab.Rapdis) 15 mg TRANSLINGU BEDTIME [facility] Last Admin: 03/31/24 20:14 Dose: 15 mg Prednisone (Prednisone 1 Mg Tablet) 1 mg PO DAILY [facility] Last Admin: 04/01/24 08:58 Dose: 1 mg Prednisone (Prednisone 5 Mg Tablet) 5 mg PO DAILY [facility] Last Admin: 04/01/24 08:58 Dose: 5 mg Risperidone (Risperidone 1 Mg Tablet) 1 mg PO TID PRN PRN Reason: psychosis/agitation Last Admin: 03/23/24 20:40 Dose: 1 mg Senna (Sennosides 8.6 Mg Tablet) 17.2 mg PO DAILY [facility] Last Admin: 04/01/24 09:00 Dose: Not Given Trazodone HCl (Trazodone Hcl 50 Mg Tablet) 50 mg PO BEDTIME MRX1 PRN PRN Reason: Insomnia Last Admin: 03/28/24 20:52 Dose: 50 mg Vitamin D (Cholecalciferol (Vitamin D3) 25 Mcg Tablet) 25 mcg PO DAILY [facility] Last Admin: 04/01/24 08:58 Dose: 25 mcg Allergies Allergies Allergy/AdvReac Type Severity Reaction Status Date / Time No Known Allergies Allergy Verified 12/25/23 17:04 Assessment & Plan Assessment & Plan (1) Schizoaffective disorder, depressive type: Status: Acute Code(s): F25.1 - Schizoaffective disorder, depressive type (2) Dementia: Status: Acute Code(s): F03.90 - Unspecified dementia, unspecified severity, without behavioral disturbance, psychotic disturbance, mood disturbance, and anxiety Plan The patient is an elderly female with a past history of schizoaffective disorder bipolar type, cognitive impairment and several medical comorbidities who was initially admitted for psychotic decompensation and needed to be transferred to Medicine due to sepsis. She was medically cleared transferring back into this facility for continuation of care. 02/21/24: Continue to encourage treatment. 02/22 continue tx. 02/23 Continue current regime and plan of care 02/24 Continue current regime and plan of care 02/28/24 Patient highly irritable, paranoid; started screaming at roommate to get out of her room and rushed at a peer; intrusive to this peers. Cosmetic Sales Consultant tried to discuss this with patient who was guarded and angry. Said she was taking her medication and irritated when verse writer discussed otherwise. Patient seemed to agreed to get back on clozapine which was restarted 03/09- continue tx. 03/10 continue tx. 03/16/2024: Continue current regimen and plans 03/17/2024: Continue current regimen and plans 03/22/2024: Continue current plan 03/23: continue current management and treatment plan. 03/24: Continue current management and treatment plan. Plan 1. Continue with Zyprexa. 2. Guardianship hearing for placement. 3. Continue with 15 minute checks. 4. We are discontinuing clozapine. Reason for continued inpatient stay Substantial Risk for: inability to function, rapid decompensation and med/psych decompensation Time Spent With Patient Time: Total time managing care of this patient today __20__ minutes.
[2024-04-01 20:16] VITALS: TEMP 37.1
[2024-04-01] MEDS: OLANZapine ODT 10 MG TAB.RAPDIS 15 MG TRANSLINGU (20:33)
[2024-04-01] MEDS: traZODone HCL 50 MG TABLET PO ×2 (20:34→22:27)
[2024-04-01] MEDS: Acetaminophen 325 MG TABLET 650 MG PO (20:34)
[2024-04-01 20:38] VITALS: BP 132/61; PULSE 82; TEMP 36.9; O2SAT 96
[2024-04-01] MEDS: risperiDONE 1 MG TABLET PO (22:27)
[2024-04-02] MEDS: guaiFENesin DM 600/30 1 TAB TAB.ER.12H PO (00:35)
[2024-04-02 08:00] VITALS: BP 119/56; PULSE 66; RESP 18; TEMP 36; O2SAT 96
[2024-04-02] MEDS: predniSONE 5 MG TABLET PO (08:27)
[2024-04-02] MEDS: Fludrocortisone Acetate 0.1 MG TABLET PO ×2 (08:27→19:59)
[2024-04-02] MEDS: Cholecalciferol (Vitamin D3) 25 MCG TABLET PO (08:27)
[2024-04-02] MEDS: Atorvastatin Calcium 20 MG TABLET PO (08:27)
[2024-04-02] MEDS: predniSONE 1 MG TABLET PO (08:30)
[2024-04-02 11:25] VITALS: BP 119/56
--- NOTE | 2024-04-02 16:45 | HO.PSYCHPN ---
Subjective Subjective Date of Service: 04/02/24 Reason For Visit: dementia psychosis Subjective Notes: Conditional Voluntary Interim History: The nursing staff reported no changes in her mental status compliant with treatment. On interview the patient denies new symptoms, waiting for placement Mental Status Exam Mental Status Exam Patient Appearance: Appropriate Patient Orientation: Person and Situation Level of Consciousness: Awake and Appropriate Patient Behavior: Guarded and Passive Mood Description: Calm Affect Description: Constricted Patient Cognition Impaired: Yes Ability to Follow Directions: Good Speech Pattern: Clear Hallucinations: None Delusions: Paranoid Ideation and Ideas of Reference Thought Process: Distracted and Slowed Thinking Thought Content: positive for [place] and positive for Poverty of Content Judgement: Fair Diagnostics Vital Signs (24Hr): Vital Signs - 24 hr 04/01/24 20:16 04/01/24 20:38 04/02/24 08:00 Temperature 98.7 F 98.5 F 96.8 F Pulse Rate 82 66 Respiratory Rate 18 Blood Pressure 132/61 119/56 L Pulse Oximetry 96 96 Oxygen Delivery Method Room Air Room Air 04/02/24 11:25 Temperature Pulse Rate Respiratory Rate Blood Pressure 119/56 L Pulse Oximetry Oxygen Delivery Method BMI result Body Mass Index 23.5 Labs 04/01/24 07:18 Labs: Laboratory Results - last 48 hr 04/01/24 07:18 Sodium 142 Potassium 3.5 Chloride 109 H Carbon Dioxide 24 Anion Gap 13 BUN 19 H Creatinine 0.60 Estim Creat Clear Calc 76.2 Estimated GFR > 60 Fasting Glucose 90 Calcium 8.9 Total Bilirubin 0.4 AST 17 ALT 9 Alkaline Phosphatase 74 Total Protein 6.1 L Albumin 3.3 L Medications Medications Current Medications Acetaminophen (Acetaminophen 325 Mg Tablet) 650 mg PO Q6H PRN PRN Reason: Headache/Pain Mild Scale (1-3) Last Admin: 04/01/24 20:34 Dose: 650 mg Al Hydroxide/Mg Hydroxide (Magnesium Hydrox/Alum Hydrox 30 Ml Oral.Susp) 30 ml PO Q6H PRN PRN Reason: Heartburn/Nausea Last Admin: 03/22/24 09:31 Dose: 30 ml Amlodipine Besylate (Amlodipine Besylate 5 Mg Tablet) 5 mg PO DAILY [facility]; Protocol Last Admin: 04/02/24 11:25 Dose: Not Given Atorvastatin Calcium (Atorvastatin Calcium 20 Mg Tablet) 20 mg PO DAILY [facility] Last Admin: 04/02/24 08:27 Dose: 20 mg Benzocaine (Benzocaine 20 % Oral Gel 9 Gm Tube) 1 appl MUCOUS MEM QID PRN; Protocol PRN Reason: Pain, Mild (Pain Scale 1-3) Fludrocortisone Acetate (Fludrocortisone Acetate 0.1 Mg Tablet) 0.1 mg PO BID [facility] Last Admin: 04/02/24 08:27 Dose: 0.1 mg Guaifenesin/Dextromethorphan (Guaifenesin Dm 600/30 1 Tab Tab.Er.12h) 1 tab PO BID PRN PRN Reason: Cough Last Admin: 04/02/24 00:35 Dose: 1 tab Magnesium Hydroxide (Milk Of Magnesia 30 Ml Oral.Susp) 30 ml PO DAILY PRN PRN Reason: Constipation Olanzapine (Olanzapine Odt 10 Mg Tab.Rapdis) 10 mg TRANSLINGU BID PRN PRN Reason: agitation Last Admin: 03/03/24 09:01 Dose: 10 mg Olanzapine (Olanzapine Odt 10 Mg Tab.Rapdis) 15 mg TRANSLINGU BEDTIME [facility] Last Admin: 04/01/24 20:33 Dose: 15 mg Prednisone (Prednisone 1 Mg Tablet) 1 mg PO DAILY [facility] Last Admin: 04/02/24 08:30 Dose: 1 mg Prednisone (Prednisone 5 Mg Tablet) 5 mg PO DAILY [facility] Last Admin: 04/02/24 08:27 Dose: 5 mg Risperidone (Risperidone 1 Mg Tablet) 1 mg PO TID PRN PRN Reason: psychosis/agitation Last Admin: 04/01/24 22:27 Dose: 1 mg Senna (Sennosides 8.6 Mg Tablet) 17.2 mg PO DAILY [facility] Last Admin: 04/02/24 11:23 Dose: Not Given Trazodone HCl (Trazodone Hcl 50 Mg Tablet) 50 mg PO BEDTIME MRX1 PRN PRN Reason: Insomnia Last Admin: 04/01/24 22:27 Dose: 50 mg Vitamin D (Cholecalciferol (Vitamin D3) 25 Mcg Tablet) 25 mcg PO DAILY [facility] Last Admin: 04/02/24 08:27 Dose: 25 mcg Allergies Allergies Allergy/AdvReac Type Severity Reaction Status Date / Time No Known Allergies Allergy Verified 12/25/23 17:04 Assessment & Plan Assessment & Plan (1) Schizoaffective disorder, depressive type: Status: Acute Code(s): F25.1 - Schizoaffective disorder, depressive type (2) Dementia: Status: Acute Code(s): F03.90 - Unspecified dementia, unspecified severity, without behavioral disturbance, psychotic disturbance, mood disturbance, and anxiety Plan The patient is an elderly female with a past history of schizoaffective disorder bipolar type, cognitive impairment and several medical comorbidities who was initially admitted for psychotic decompensation and needed to be transferred to Medicine due to sepsis. She was medically cleared transferring back into this facility for continuation of care. 02/21/24: Continue to encourage treatment. 02/22 continue tx. 02/23 Continue current regime and plan of care 02/24 Continue current regime and plan of care 02/28/24 Patient highly irritable, paranoid; started screaming at roommate to get out of her room and rushed at a peer; intrusive to this peers. Health Outreach Worker tried to discuss this with patient who was guarded and angry. Said she was taking her medication and irritated when automobile and property underwriter discussed otherwise. Patient seemed to agreed to get back on clozapine which was restarted 03/09- continue tx. 03/10 continue tx. 03/16/2024: Continue current regimen and plans 03/17/2024: Continue current regimen and plans 03/22/2024: Continue current plan 03/23: continue current management and treatment plan. 03/24: Continue current management and treatment plan. Plan 1. Continue with Zyprexa. 2. Guardianship hearing for placement. 3. Continue with 15 minute checks. 4. We are discontinuing clozapine. Reason for continued inpatient stay Substantial Risk for: inability to function, rapid decompensation and med/psych decompensation Time Spent With Patient Time: Total time managing care of this patient today _20___ minutes.
[2024-04-02] MEDS: OLANZapine ODT 10 MG TAB.RAPDIS 15 MG TRANSLINGU (19:58)
[2024-04-02] MEDS: risperiDONE 1 MG TABLET PO (19:59)
[2024-04-02] MEDS: traZODone HCL 50 MG TABLET PO (19:59)
[2024-04-02 20:00] VITALS: BP 159/64; PULSE 70; RESP 18; TEMP 37.4; O2SAT 95
[2024-04-03 07:55] VITALS: BP 170/78; PULSE 72; RESP 18; TEMP 36.8; O2SAT 98
[2024-04-03] MEDS: Cholecalciferol (Vitamin D3) 25 MCG TABLET PO (08:25)
[2024-04-03] MEDS: Fludrocortisone Acetate 0.1 MG TABLET PO ×2 (08:25→20:20)
[2024-04-03] MEDS: amLODIPine Besylate 5 MG TABLET PO (08:25)
[2024-04-03] MEDS: predniSONE 5 MG TABLET PO (08:25)
[2024-04-03] MEDS: Atorvastatin Calcium 20 MG TABLET PO (08:25)
[2024-04-03] MEDS: predniSONE 1 MG TABLET PO (08:25)
--- NOTE | 2024-04-03 16:10 | P.PNPSI_ITS ---
Subjective Subjective Date of Service: 04/03/24 Reason For Visit: dementia psychosis Subjective Notes: Conditional Voluntary Interim History: The nursing staff reported no changes in her mental status compliant with treatment. On interview the patient denies new symptoms, isolative but redirectable. Mental Status Exam Mental Status Exam Patient Appearance: Appropriate Patient Orientation: Person and Situation Level of Consciousness: Awake and Appropriate Patient Behavior: Guarded and Passive Mood Description: Withdrawn Affect Description: Constricted Patient Cognition Impaired: Yes Ability to Follow Directions: Good Speech Pattern: Clear Hallucinations: None Delusions: Paranoid Ideation and Ideas of Reference Thought Process: Distracted and Slowed Thinking Thought Content: positive for [place] and positive for Poverty of Content Judgement: Fair Diagnostics Vital Signs (24Hr): Vital Signs - 24 hr 04/02/24 20:00 04/03/24 07:55 Temperature 99.4 F 98.2 F Pulse Rate 70 72 Respiratory Rate 18 18 Blood Pressure 159/64 H 170/78 H Pulse Oximetry 95 98 Oxygen Delivery Method Room Air Room Air BMI result Body Mass Index 23.5 Labs 04/01/24 07:18 Medications Medications Current Medications Acetaminophen (Acetaminophen 325 Mg Tablet) 650 mg PO Q6H PRN PRN Reason: Headache/Pain Mild Scale (1-3) Last Admin: 04/01/24 20:34 Dose: 650 mg Al Hydroxide/Mg Hydroxide (Magnesium Hydrox/Alum Hydrox 30 Ml Oral.Susp) 30 ml PO Q6H PRN PRN Reason: Heartburn/Nausea Last Admin: 03/22/24 09:31 Dose: 30 ml Amlodipine Besylate (Amlodipine Besylate 5 Mg Tablet) 5 mg PO DAILY [facility]; Protocol Last Admin: 04/03/24 08:25 Dose: 5 mg Atorvastatin Calcium (Atorvastatin Calcium 20 Mg Tablet) 20 mg PO DAILY [facility] Last Admin: 04/03/24 08:25 Dose: 20 mg Benzocaine (Benzocaine 20 % Oral Gel 9 Gm Tube) 1 appl MUCOUS MEM QID PRN; Protocol PRN Reason: Pain, Mild (Pain Scale 1-3) Fludrocortisone Acetate (Fludrocortisone Acetate 0.1 Mg Tablet) 0.1 mg PO BID [facility] Last Admin: 04/03/24 08:25 Dose: 0.1 mg Guaifenesin/Dextromethorphan (Guaifenesin Dm 600/30 1 Tab Tab.Er.12h) 1 tab PO BID PRN PRN Reason: Cough Last Admin: 04/02/24 00:35 Dose: 1 tab Magnesium Hydroxide (Milk Of Magnesia 30 Ml Oral.Susp) 30 ml PO DAILY PRN PRN Reason: Constipation Olanzapine (Olanzapine Odt 10 Mg Tab.Rapdis) 10 mg TRANSLINGU BID PRN PRN Reason: agitation Last Admin: 03/03/24 09:01 Dose: 10 mg Olanzapine (Olanzapine Odt 10 Mg Tab.Rapdis) 15 mg TRANSLINGU BEDTIME [facility] Last Admin: 04/02/24 19:58 Dose: 15 mg Prednisone (Prednisone 1 Mg Tablet) 1 mg PO DAILY [facility] Last Admin: 04/03/24 08:25 Dose: 1 mg Prednisone (Prednisone 5 Mg Tablet) 5 mg PO DAILY [facility] Last Admin: 04/03/24 08:25 Dose: 5 mg Risperidone (Risperidone 1 Mg Tablet) 1 mg PO TID PRN PRN Reason: psychosis/agitation Last Admin: 04/02/24 19:59 Dose: 1 mg Senna (Sennosides 8.6 Mg Tablet) 17.2 mg PO DAILY [facility] Last Admin: 04/03/24 08:25 Dose: Not Given Trazodone HCl (Trazodone Hcl 50 Mg Tablet) 50 mg PO BEDTIME MRX1 PRN PRN Reason: Insomnia Last Admin: 04/02/24 19:59 Dose: 50 mg Vitamin D (Cholecalciferol (Vitamin D3) 25 Mcg Tablet) 25 mcg PO DAILY [facility] Last Admin: 04/03/24 08:25 Dose: 25 mcg Allergies Allergies Allergy/AdvReac Type Severity Reaction Status Date / Time No Known Allergies Allergy Verified 12/25/23 17:04 Assessment & Plan Assessment & Plan (1) Schizoaffective disorder, depressive type: Status: Acute Code(s): F25.1 - Schizoaffective disorder, depressive type (2) Dementia: Status: Acute Code(s): F03.90 - Unspecified dementia, unspecified severity, without behavioral disturbance, psychotic disturbance, mood disturbance, and anxiety Plan The patient is an elderly female with a past history of schizoaffective disorder bipolar type, cognitive impairment and several medical comorbidities who was initially admitted for psychotic decompensation and needed to be transferred to Medicine due to sepsis. She was medically cleared transferring back into this facility for continuation of care. 02/21/24: Continue to encourage treatment. 02/22 continue tx. 02/23 Continue current regime and plan of care 02/24 Continue current regime and plan of care 02/28/24 Patient highly irritable, paranoid; started screaming at roommate to get out of her room and rushed at a peer; intrusive to this peers. Relief Pilot tried to discuss this with patient who was guarded and angry. Said she was taking her medication and irritated when sports book writer discussed otherwise. Patient seemed to agreed to get back on clozapine which was restarted 03/09- continue tx. 03/10 continue tx. 03/16/2024: Continue current regimen and plans 03/17/2024: Continue current regimen and plans 03/22/2024: Continue current plan 03/23: continue current management and treatment plan. 03/24: Continue current management and treatment plan. Plan 1. Continue with Zyprexa. 2. Guardianship hearing for placement. 3. Continue with 15 minute checks. 4. We are discontinuing clozapine. Reason for continued inpatient stay Substantial Risk for: inability to function, rapid decompensation and med/psych decompensation Time Spent With Patient Time: Total time managing care of this patient today __20__ minutes.
[2024-04-03] MEDS: OLANZapine ODT 10 MG TAB.RAPDIS TRANSLINGU (18:53)
[2024-04-03 20:00] VITALS: BP 171/78; PULSE 81; RESP 16; TEMP 36.1; O2SAT 97
[2024-04-03] MEDS: OLANZapine ODT 10 MG TAB.RAPDIS 15 MG TRANSLINGU (20:20)
[2024-04-03] MEDS: traZODone HCL 50 MG TABLET PO (20:26)
[2024-04-03] MEDS: risperiDONE 1 MG TABLET PO (20:26)
[2024-04-03 23:09] VITALS: BP 108/65; PULSE 64
[2024-04-04 09:23] VITALS: BP 122/69; PULSE 59; RESP 17; TEMP 36.1; O2SAT 96
[2024-04-04] MEDS: predniSONE 5 MG TABLET PO (09:53)
[2024-04-04] MEDS: Fludrocortisone Acetate 0.1 MG TABLET PO ×2 (09:53→21:00)
[2024-04-04] MEDS: Cholecalciferol (Vitamin D3) 25 MCG TABLET PO (09:53)
[2024-04-04] MEDS: Atorvastatin Calcium 20 MG TABLET PO (09:54)
[2024-04-04] MEDS: predniSONE 1 MG TABLET PO (09:54)
[2024-04-04] MEDS: amLODIPine Besylate 5 MG TABLET PO (09:54)
[2024-04-04 15:24] VITALS: BMI 23.6
--- NOTE | 2024-04-04 15:56 | HO.PSYCHPN ---
Subjective Subjective Date of Service: 04/04/24 Reason For Visit: dementia psychosis Subjective Notes: Conditional Voluntary Interim History: The nursing staff reported no changes in her mental status with auditory hallucinations. She took p.r.n. Risperdal with for improvement. On interview the patient denies new symptoms. Mental Status Exam Mental Status Exam Patient Appearance: Unkempt Patient Orientation: Person Level of Consciousness: Awake Patient Behavior: Guarded and Passive Mood Description: Withdrawn Affect Description: Constricted Patient Cognition Impaired: Yes Ability to Follow Directions: Good Speech Pattern: Clear Hallucinations: Auditory Delusions: Paranoid Ideation and Ideas of Reference Thought Process: Distracted and Slowed Thinking Thought Content: positive for [place] and positive for Poverty of Content Judgement: Fair Diagnostics Vital Signs (24Hr): Vital Signs - 24 hr 04/03/24 20:00 04/03/24 23:09 04/04/24 09:23 Temperature 97 F 97 F Pulse Rate 81 64 59 Respiratory Rate 16 17 Blood Pressure 171/78 H 108/65 122/69 Pulse Oximetry 97 96 Oxygen Delivery Method Room Air Room Air BMI result Body Mass Index 23.6 Labs 04/01/24 07:18 Medications Medications Current Medications Acetaminophen (Acetaminophen 325 Mg Tablet) 650 mg PO Q6H PRN PRN Reason: Headache/Pain Mild Scale (1-3) Last Admin: 04/01/24 20:34 Dose: 650 mg Al Hydroxide/Mg Hydroxide (Magnesium Hydrox/Alum Hydrox 30 Ml Oral.Susp) 30 ml PO Q6H PRN PRN Reason: Heartburn/Nausea Last Admin: 03/22/24 09:31 Dose: 30 ml Amlodipine Besylate (Amlodipine Besylate 5 Mg Tablet) 5 mg PO DAILY [facility]; Protocol Last Admin: 04/04/24 09:54 Dose: 5 mg Atorvastatin Calcium (Atorvastatin Calcium 20 Mg Tablet) 20 mg PO DAILY [facility] Last Admin: 04/04/24 09:54 Dose: 20 mg Benzocaine (Benzocaine 20 % Oral Gel 9 Gm Tube) 1 appl MUCOUS MEM QID PRN; Protocol PRN Reason: Pain, Mild (Pain Scale 1-3) Fludrocortisone Acetate (Fludrocortisone Acetate 0.1 Mg Tablet) 0.1 mg PO BID [facility] Last Admin: 04/04/24 09:53 Dose: 0.1 mg Guaifenesin/Dextromethorphan (Guaifenesin Dm 600/30 1 Tab Tab.Er.12h) 1 tab PO BID PRN PRN Reason: Cough Last Admin: 04/02/24 00:35 Dose: 1 tab Magnesium Hydroxide (Milk Of Magnesia 30 Ml Oral.Susp) 30 ml PO DAILY PRN PRN Reason: Constipation Olanzapine (Olanzapine Odt 10 Mg Tab.Rapdis) 10 mg TRANSLINGU BID PRN PRN Reason: agitation Last Admin: 04/03/24 18:53 Dose: 10 mg Olanzapine (Olanzapine Odt 10 Mg Tab.Rapdis) 15 mg TRANSLINGU BEDTIME [facility] Last Admin: 04/03/24 20:20 Dose: 15 mg Prednisone (Prednisone 1 Mg Tablet) 1 mg PO DAILY [facility] Last Admin: 04/04/24 09:54 Dose: 1 mg Prednisone (Prednisone 5 Mg Tablet) 5 mg PO DAILY [facility] Last Admin: 04/04/24 09:53 Dose: 5 mg Risperidone (Risperidone 1 Mg Tablet) 1 mg PO TID PRN PRN Reason: psychosis/agitation Last Admin: 04/03/24 20:26 Dose: 1 mg Senna (Sennosides 8.6 Mg Tablet) 17.2 mg PO DAILY [facility] Last Admin: 04/04/24 09:56 Dose: Not Given Trazodone HCl (Trazodone Hcl 50 Mg Tablet) 50 mg PO BEDTIME MRX1 PRN PRN Reason: Insomnia Last Admin: 04/03/24 20:26 Dose: 50 mg Vitamin D (Cholecalciferol (Vitamin D3) 25 Mcg Tablet) 25 mcg PO DAILY [facility] Last Admin: 04/04/24 09:53 Dose: 25 mcg Allergies Allergies Allergy/AdvReac Type Severity Reaction Status Date / Time No Known Allergies Allergy Verified 12/25/23 17:04 Assessment & Plan Assessment & Plan (1) Schizoaffective disorder, depressive type: Status: Acute Code(s): F25.1 - Schizoaffective disorder, depressive type (2) Dementia: Status: Acute Code(s): F03.90 - Unspecified dementia, unspecified severity, without behavioral disturbance, psychotic disturbance, mood disturbance, and anxiety Plan The patient is an elderly female with a past history of schizoaffective disorder bipolar type, cognitive impairment and several medical comorbidities who was initially admitted for psychotic decompensation and needed to be transferred to Medicine due to sepsis. She was medically cleared transferring back into this facility for continuation of care. 02/21/24: Continue to encourage treatment. 02/22 continue tx. 02/23 Continue current regime and plan of care 02/24 Continue current regime and plan of care 02/28/24 Patient highly irritable, paranoid; started screaming at roommate to get out of her room and rushed at a peer; intrusive to this peers. Quality Auditor tried to discuss this with patient who was guarded and angry. Said she was taking her medication and irritated when music writer discussed otherwise. Patient seemed to agreed to get back on clozapine which was restarted 03/09- continue tx. 03/10 continue tx. 03/16/2024: Continue current regimen and plans 03/17/2024: Continue current regimen and plans 03/22/2024: Continue current plan 03/23: continue current management and treatment plan. 03/24: Continue current management and treatment plan. Plan 1. Continue with Zyprexa. 2. Guardianship hearing for placement. 3. Continue with 15 minute checks. 4. We are discontinuing clozapine. Reason for continued inpatient stay Substantial Risk for: inability to function, rapid decompensation and med/psych decompensation Time Spent With Patient Time: Total time managing care of this patient today __20__ minutes.
[2024-04-04 20:00] VITALS: BP 107/56; PULSE 64; RESP 16; TEMP 36.2; O2SAT 94
[2024-04-04] MEDS: risperiDONE 1 MG TABLET PO (21:00)
[2024-04-04] MEDS: traZODone HCL 50 MG TABLET PO (21:01)
[2024-04-04] MEDS: OLANZapine ODT 10 MG TAB.RAPDIS 15 MG TRANSLINGU (21:01)
[2024-04-05] MEDS: predniSONE 5 MG TABLET PO (09:14)
[2024-04-05] MEDS: Cholecalciferol (Vitamin D3) 25 MCG TABLET PO (09:14)
[2024-04-05] MEDS: Fludrocortisone Acetate 0.1 MG TABLET PO ×2 (09:14→20:50)
[2024-04-05] MEDS: predniSONE 1 MG TABLET PO (09:15)
[2024-04-05] MEDS: Atorvastatin Calcium 20 MG TABLET PO (09:15)
[2024-04-05 09:16] VITALS: BP 177/74; PULSE 84; RESP 18; TEMP 35.8; O2SAT 97
[2024-04-05] MEDS: amLODIPine Besylate 5 MG TABLET PO (09:16)
--- NOTE | 2024-04-05 11:21 | HO.PSYCHPN ---
Subjective Subjective Date of Service: 04/05/24 Reason For Visit: dementia psychosis Subjective Notes: Conditional Voluntary Healthcare Proxy: Yes Interim History: Pt slept only 2hrs. She was up early in the morning. She reports she hears voices all day long telling him that she will be killed in the shower, burned with molten lava. She reports voices tell her that she will go to hell. She denies SI/HI. She is eating well. Not social with peers, but much more visible. She is taking medications as prescribed. Medication Compliance: Yes Review of Systems Review of Systems Pt denies currently Yes all other systems are reviewed and are negative and Unobtainable due to mental status Mental Status Exam Mental Status Exam Patient Appearance: Unkempt Patient Orientation: Person Level of Consciousness: Awake Patient Behavior: Guarded and Passive Mood Description: Withdrawn Affect Description: Constricted Patient Cognition Impaired: Yes Ability to Follow Directions: Good Speech Pattern: Clear Diagnostics Vital Signs (24Hr): Vital Signs - 24 hr 04/04/24 20:00 04/05/24 09:16 Temperature 97.2 F Pulse Rate 64 Respiratory Rate 16 Blood Pressure 107/56 L 177/74 H Pulse Oximetry 94 Oxygen Delivery Method Room Air BMI result Body Mass Index 23.6 Labs 04/01/24 07:18 Medications Medications Current Medications Acetaminophen (Acetaminophen 325 Mg Tablet) 650 mg PO Q6H PRN PRN Reason: Headache/Pain Mild Scale (1-3) Last Admin: 04/01/24 20:34 Dose: 650 mg Al Hydroxide/Mg Hydroxide (Magnesium Hydrox/Alum Hydrox 30 Ml Oral.Susp) 30 ml PO Q6H PRN PRN Reason: Heartburn/Nausea Last Admin: 03/22/24 09:31 Dose: 30 ml Amlodipine Besylate (Amlodipine Besylate 5 Mg Tablet) 5 mg PO DAILY [facility]; Protocol Last Admin: 04/05/24 09:16 Dose: 5 mg Atorvastatin Calcium (Atorvastatin Calcium 20 Mg Tablet) 20 mg PO DAILY [facility] Last Admin: 04/05/24 09:15 Dose: 20 mg Benzocaine (Benzocaine 20 % Oral Gel 9 Gm Tube) 1 appl MUCOUS MEM QID PRN; Protocol PRN Reason: Pain, Mild (Pain Scale 1-3) Fludrocortisone Acetate (Fludrocortisone Acetate 0.1 Mg Tablet) 0.1 mg PO BID [facility] Last Admin: 04/05/24 09:14 Dose: 0.1 mg Guaifenesin/Dextromethorphan (Guaifenesin Dm 600/30 1 Tab Tab.Er.12h) 1 tab PO BID PRN PRN Reason: Cough Last Admin: 04/02/24 00:35 Dose: 1 tab Magnesium Hydroxide (Milk Of Magnesia 30 Ml Oral.Susp) 30 ml PO DAILY PRN PRN Reason: Constipation Olanzapine (Olanzapine Odt 10 Mg Tab.Rapdis) 10 mg TRANSLINGU BID PRN PRN Reason: agitation Last Admin: 04/03/24 18:53 Dose: 10 mg Olanzapine (Olanzapine Odt 10 Mg Tab.Rapdis) 15 mg TRANSLINGU BEDTIME [facility] Last Admin: 04/04/24 21:01 Dose: 15 mg Prednisone (Prednisone 1 Mg Tablet) 1 mg PO DAILY [facility] Last Admin: 04/05/24 09:15 Dose: 1 mg Prednisone (Prednisone 5 Mg Tablet) 5 mg PO DAILY [facility] Last Admin: 04/05/24 09:14 Dose: 5 mg Risperidone (Risperidone 1 Mg Tablet) 1 mg PO TID PRN PRN Reason: psychosis/agitation Last Admin: 04/04/24 21:00 Dose: 1 mg Risperidone (Risperidone 1 Mg Tablet) 1 mg PO BID [facility] Senna (Sennosides 8.6 Mg Tablet) 17.2 mg PO DAILY [facility] Last Admin: 04/05/24 10:53 Dose: Not Given Trazodone HCl (Trazodone Hcl 50 Mg Tablet) 50 mg PO BEDTIME MRX1 PRN PRN Reason: Insomnia Last Admin: 04/04/24 21:01 Dose: 50 mg Vitamin D (Cholecalciferol (Vitamin D3) 25 Mcg Tablet) 25 mcg PO DAILY [facility] Last Admin: 04/05/24 09:14 Dose: 25 mcg Allergies Allergies Allergy/AdvReac Type Severity Reaction Status Date / Time No Known Allergies Allergy Verified 12/25/23 17:04 Assessment & Plan Assessment & Plan (1) Schizoaffective disorder, depressive type: Status: Acute Code(s): F25.1 - Schizoaffective disorder, depressive type (2) Dementia: Status: Acute Code(s): F03.90 - Unspecified dementia, unspecified severity, without behavioral disturbance, psychotic disturbance, mood disturbance, and anxiety Plan The patient is an elderly female with a past history of schizoaffective disorder bipolar type, cognitive impairment and several medical comorbidities who was initially admitted for psychotic decompensation and needed to be transferred to Medicine due to sepsis. She was medically cleared transferring back into this facility for continuation of care. 02/21/24: Continue to encourage treatment. 02/22 continue tx. 02/23 Continue current regime and plan of care 02/24 Continue current regime and plan of care 02/28/24 Patient highly irritable, paranoid; started screaming at roommate to get out of her room and rushed at a peer; intrusive to this peers. Back Wedger tried to discuss this with patient who was guarded and angry. Said she was taking her medication and irritated when auto service writer discussed otherwise. Patient seemed to agreed to get back on clozapine which was restarted 03/09- continue tx. 03/10 continue tx. 03/16/2024: Continue current regimen and plans 03/17/2024: Continue current regimen and plans 03/22/2024: Continue current plan 03/23: continue current management and treatment plan. 03/24: Continue current management and treatment plan. 04/05 schedule risperidone 1mg po BID. continue olanzapine 15mg po qhs. schedule trazodone 50mg po qhs.SBP 170's, will increase amlodipine 7.5mg po daily- she does have at times due to adrenal insufficiency hotn- will monitor. Reason for continued inpatient stay Substantial Risk for: inability to function Time Spent With Patient Time: Total time managing care of this patient today ____ minutes.
[2024-04-05 16:42] LABS: Estimated Average Glucose 111 mg/dL; Hemoglobin A1C 109.5338 umol/L; Hemoglobin A1c % 5.5 % (<6.0); Total Hemoglobin (HGBA1C) 2995.2296 umol/L
[2024-04-05 19:30] VITALS: BP 122/65; PULSE 93; RESP 16; TEMP 36.6; O2SAT 98
[2024-04-05] MEDS: OLANZapine ODT 10 MG TAB.RAPDIS 15 MG TRANSLINGU (20:49)
[2024-04-05] MEDS: risperiDONE 1 MG TABLET PO (20:50)
[2024-04-05] MEDS: traZODone HCL 50 MG TABLET PO (20:50)
--- NOTE | 2024-04-06 08:31 | HO.PSYCHPN ---
Subjective Subjective Date of Service: 04/06/24 Reason For Visit: dementia psychosis Subjective Notes: Conditional Voluntary (guardian) Guardianship: Yes Medical Problems Affecting Mental Status: Yes (r/o uti) Interim History: 73 yo reports she is not doing well- can't really say why or what- nursing concerned about uti- so ordered urine collection for cx denies si, denies uti sys slept ok, no side effects of medication - +AH of me being in hell hears demons, lights/fire Medication Compliance: Yes Side effects from medications: No Attending Groups: No Review of Systems r/o uti Mental Status Exam Mental Status Exam Narrative: lying in bed, flat affect- Patient Orientation: Person and Place Level of Consciousness: Awake Patient Behavior: Passive and Good Eye Contact Mood Description: Apathetic Affect Description: Blunted Patient Cognition Impaired: Yes Ability to Follow Directions: Poor Speech Pattern: Clear Hallucinations: Auditory Thought Process: Intact and Goal Oriented Thought Content: positive for Perseveration Depressive Symptoms: Unhappiness and Loss of Energy Judgement: Poor Diagnostics Vital Signs (24Hr): Vital Signs - 24 hr 04/05/24 09:16 04/05/24 09:16 04/05/24 19:30 Temperature 96.4 F L 97.9 F Pulse Rate 84 93 Respiratory Rate 18 16 Blood Pressure 177/74 H 177/74 H 122/65 Pulse Oximetry 97 98 Oxygen Delivery Method Room Air Room Air BMI result Body Mass Index 23.6 Labs 04/01/24 07:18 Labs: Laboratory Results - last 48 hr 04/05/24 16:13 Estimat Average Glucose 111 Hemoglobin A1c % 5.5 Medications Medications Current Medications Acetaminophen (Acetaminophen 325 Mg Tablet) 650 mg PO Q6H PRN PRN Reason: Headache/Pain Mild Scale (1-3) Last Admin: 04/01/24 20:34 Dose: 650 mg Al Hydroxide/Mg Hydroxide (Magnesium Hydrox/Alum Hydrox 30 Ml Oral.Susp) 30 ml PO Q6H PRN PRN Reason: Heartburn/Nausea Last Admin: 03/22/24 09:31 Dose: 30 ml Amlodipine Besylate (Amlodipine Besylate 2.5 Mg Tablet) 7.5 mg PO DAILY [facility]; Protocol Atorvastatin Calcium (Atorvastatin Calcium 20 Mg Tablet) 20 mg PO DAILY [facility] Last Admin: 04/05/24 09:15 Dose: 20 mg Benzocaine (Benzocaine 20 % Oral Gel 9 Gm Tube) 1 appl MUCOUS MEM QID PRN; Protocol PRN Reason: Pain, Mild (Pain Scale 1-3) Fludrocortisone Acetate (Fludrocortisone Acetate 0.1 Mg Tablet) 0.1 mg PO BID [facility] Last Admin: 04/05/24 20:50 Dose: 0.1 mg Guaifenesin/Dextromethorphan (Guaifenesin Dm 600/30 1 Tab Tab.Er.12h) 1 tab PO BID PRN PRN Reason: Cough Last Admin: 04/02/24 00:35 Dose: 1 tab Magnesium Hydroxide (Milk Of Magnesia 30 Ml Oral.Susp) 30 ml PO DAILY PRN PRN Reason: Constipation Olanzapine (Olanzapine Odt 10 Mg Tab.Rapdis) 10 mg TRANSLINGU BID PRN PRN Reason: agitation Last Admin: 04/03/24 18:53 Dose: 10 mg Olanzapine (Olanzapine Odt 10 Mg Tab.Rapdis) 15 mg TRANSLINGU BEDTIME [facility] Last Admin: 04/05/24 20:49 Dose: 15 mg Prednisone (Prednisone 1 Mg Tablet) 1 mg PO DAILY [facility] Last Admin: 04/05/24 09:15 Dose: 1 mg Prednisone (Prednisone 5 Mg Tablet) 5 mg PO DAILY [facility] Last Admin: 04/05/24 09:14 Dose: 5 mg Risperidone (Risperidone 1 Mg Tablet) 1 mg PO TID PRN PRN Reason: psychosis/agitation Last Admin: 04/04/24 21:00 Dose: 1 mg Risperidone (Risperidone 1 Mg Tablet) 1 mg PO BID [facility] Last Admin: 04/05/24 20:50 Dose: 1 mg Senna (Sennosides 8.6 Mg Tablet) 17.2 mg PO DAILY [facility] Last Admin: 04/05/24 10:53 Dose: Not Given Trazodone HCl (Trazodone Hcl 50 Mg Tablet) 50 mg PO BEDTIME [facility] Last Admin: 04/05/24 20:50 Dose: 50 mg Trazodone HCl (Trazodone Hcl 50 Mg Tablet) 50 mg PO BEDTIME PRN PRN Reason: Insomnia Vitamin D (Cholecalciferol (Vitamin D3) 25 Mcg Tablet) 25 mcg PO DAILY [facility] Last Admin: 04/05/24 09:14 Dose: 25 mcg Allergies Allergies Allergy/AdvReac Type Severity Reaction Status Date / Time No Known Allergies Allergy Verified 12/25/23 17:04 Assessment & Plan Assessment & Plan (1) Schizoaffective disorder, depressive type: Status: Acute Code(s): F25.1 - Schizoaffective disorder, depressive type (2) Dementia: Status: Acute Code(s): F03.90 - Unspecified dementia, unspecified severity, without behavioral disturbance, psychotic disturbance, mood disturbance, and anxiety Plan The patient is an elderly female with a past history of schizoaffective disorder bipolar type, cognitive impairment and several medical comorbidities who was initially admitted for psychotic decompensation and needed to be transferred to Medicine due to sepsis. She was medically cleared transferring back into this facility for continuation of care. 02/21/24: Continue to encourage treatment. 02/22 continue tx. 02/23 Continue current regime and plan of care 02/24 Continue current regime and plan of care 02/28/24 Patient highly irritable, paranoid; started screaming at roommate to get out of her room and rushed at a peer; intrusive to this peers. Specialty Transformer Assembler tried to discuss this with patient who was guarded and angry. Said she was taking her medication and irritated when commercial real estate underwriter discussed otherwise. Patient seemed to agreed to get back on clozapine which was restarted 03/09- continue tx. 03/10 continue tx. 03/16/2024: Continue current regimen and plans 03/17/2024: Continue current regimen and plans 03/22/2024: Continue current plan 03/23: continue current management and treatment plan. 03/24: Continue current management and treatment plan. 04/05 schedule risperidone 1mg po BID. continue olanzapine 15mg po qhs. schedule trazodone 50mg po qhs.SBP 170's, will increase amlodipine 7.5mg po daily- she does have at times due to adrenal insufficiency hotn- will monitor. 04/06 gather urine for ucx- continue current medication- bp normal today- ongoing psychosis feels she is in hell Reason for continued inpatient stay Substantial Risk for: inability to function, rapid decompensation and med/psych decompensation Time Spent With Patient Time: Total time managing care of this patient today ____ minutes.
[2024-04-06 09:04] VITALS: BP 132/68; PULSE 64; RESP 18; TEMP 36.4; O2SAT 98
[2024-04-06] MEDS: Atorvastatin Calcium 20 MG TABLET PO (09:06)
[2024-04-06] MEDS: Cholecalciferol (Vitamin D3) 25 MCG TABLET PO (09:06)
[2024-04-06] MEDS: predniSONE 5 MG TABLET PO (09:06)
[2024-04-06] MEDS: Fludrocortisone Acetate 0.1 MG TABLET PO ×2 (09:06→20:48)
[2024-04-06] MEDS: amLODIPine Besylate 2.5 MG TABLET 7.5 MG PO (09:06)
[2024-04-06] MEDS: risperiDONE 1 MG TABLET PO ×2 (09:06→20:47)
[2024-04-06] MEDS: predniSONE 1 MG TABLET PO (09:08)
[2024-04-06 20:00] VITALS: BP 116/65; PULSE 77; TEMP 36.4; O2SAT 97
[2024-04-06] MEDS: OLANZapine ODT 10 MG TAB.RAPDIS 15 MG TRANSLINGU (20:47)
[2024-04-06] MEDS: traZODone HCL 50 MG TABLET PO (20:48)
[2024-04-07 08:58] VITALS: BP 161/78; PULSE 77; RESP 18; TEMP 36.4; O2SAT 100
[2024-04-07] MEDS: Fludrocortisone Acetate 0.1 MG TABLET PO ×2 (09:02→20:37)
[2024-04-07] MEDS: Cholecalciferol (Vitamin D3) 25 MCG TABLET PO (09:02)
[2024-04-07] MEDS: amLODIPine Besylate 2.5 MG TABLET 7.5 MG PO (09:02)
[2024-04-07] MEDS: Atorvastatin Calcium 20 MG TABLET PO (09:02)
[2024-04-07] MEDS: predniSONE 5 MG TABLET PO (09:02)
[2024-04-07] MEDS: risperiDONE 1 MG TABLET PO ×4 (09:02→20:38)
[2024-04-07] MEDS: predniSONE 1 MG TABLET PO (09:02)
--- NOTE | 2024-04-07 12:04 | HO.PSYCHPN ---
Subjective Subjective Date of Service: 04/07/24 Reason For Visit: dementia psychosis Subjective Notes: Conditional Voluntary (Guardian) Guardianship: Yes Medical Problems Affecting Mental Status: No (though we have pending urine cx) Interim History: 73 yo with ongoing psychosis - initially tells me she is fine then feeling that someone is going to kill her today- offered prn of olanzapine - Medication Compliance: Yes Side effects from medications: No Attending Groups: No Review of Systems Acute medical concerns: No Medical Review of Systems: unchanged Mental Status Exam Mental Status Exam Narrative: dressed lying in bed, flat affect, intense stare Patient Appearance: Appropriate and Rigid Patient Orientation: Person, Place and Situation Level of Consciousness: Awake Patient Behavior: Passive Mood Description: Anxious and Apprehensive Affect Description: Blunted Patient Cognition Impaired: Yes Ability to Follow Directions: Poor Speech Pattern: Clear Delusions: Paranoid Ideation Thought Process: Intact and Goal Oriented Thought Content: positive for Perseveration Depressive Symptoms: Increased Anxiety and Muscle Tension Judgement: Poor Diagnostics Vital Signs (24Hr): Vital Signs - 24 hr 04/06/24 20:00 04/07/24 08:58 Temperature 97.5 F 97.5 F Pulse Rate 77 77 Respiratory Rate 18 Blood Pressure 116/65 161/78 H Pulse Oximetry 97 100 Oxygen Delivery Method Room Air Room Air BMI result Body Mass Index 23.6 Labs 04/01/24 07:18 Labs: Laboratory Results - last 48 hr 04/05/24 16:13 Estimat Average Glucose 111 Hemoglobin A1c % 5.5 Medications Medications Current Medications Acetaminophen (Acetaminophen 325 Mg Tablet) 650 mg PO Q6H PRN PRN Reason: Headache/Pain Mild Scale (1-3) Last Admin: 04/01/24 20:34 Dose: 650 mg Al Hydroxide/Mg Hydroxide (Magnesium Hydrox/Alum Hydrox 30 Ml Oral.Susp) 30 ml PO Q6H PRN PRN Reason: Heartburn/Nausea Last Admin: 03/22/24 09:31 Dose: 30 ml Amlodipine Besylate (Amlodipine Besylate 2.5 Mg Tablet) 7.5 mg PO DAILY [facility]; Protocol Last Admin: 04/07/24 09:02 Dose: 7.5 mg Atorvastatin Calcium (Atorvastatin Calcium 20 Mg Tablet) 20 mg PO DAILY [facility] Last Admin: 04/07/24 09:02 Dose: 20 mg Benzocaine (Benzocaine 20 % Oral Gel 9 Gm Tube) 1 appl MUCOUS MEM QID PRN; Protocol PRN Reason: Pain, Mild (Pain Scale 1-3) Fludrocortisone Acetate (Fludrocortisone Acetate 0.1 Mg Tablet) 0.1 mg PO BID [facility] Last Admin: 04/07/24 09:02 Dose: 0.1 mg Guaifenesin/Dextromethorphan (Guaifenesin Dm 600/30 1 Tab Tab.Er.12h) 1 tab PO BID PRN PRN Reason: Cough Last Admin: 04/02/24 00:35 Dose: 1 tab Magnesium Hydroxide (Milk Of Magnesia 30 Ml Oral.Susp) 30 ml PO DAILY PRN PRN Reason: Constipation Olanzapine (Olanzapine Odt 10 Mg Tab.Rapdis) 10 mg TRANSLINGU BID PRN PRN Reason: agitation Last Admin: 04/03/24 18:53 Dose: 10 mg Olanzapine (Olanzapine Odt 10 Mg Tab.Rapdis) 15 mg TRANSLINGU BEDTIME [facility] Last Admin: 04/06/24 20:47 Dose: 15 mg Prednisone (Prednisone 1 Mg Tablet) 1 mg PO DAILY [facility] Last Admin: 04/07/24 09:02 Dose: 1 mg Prednisone (Prednisone 5 Mg Tablet) 5 mg PO DAILY [facility] Last Admin: 04/07/24 09:02 Dose: 5 mg Risperidone (Risperidone 1 Mg Tablet) 1 mg PO TID PRN PRN Reason: psychosis/agitation Last Admin: 04/04/24 21:00 Dose: 1 mg Risperidone (Risperidone 1 Mg Tablet) 1 mg PO BID [facility] Last Admin: 04/07/24 09:02 Dose: 1 mg Senna (Sennosides 8.6 Mg Tablet) 17.2 mg PO DAILY [facility] Last Admin: 04/07/24 09:03 Dose: Not Given Trazodone HCl (Trazodone Hcl 50 Mg Tablet) 50 mg PO BEDTIME [facility] Last Admin: 04/06/24 20:48 Dose: 50 mg Trazodone HCl (Trazodone Hcl 50 Mg Tablet) 50 mg PO BEDTIME PRN PRN Reason: Insomnia Vitamin D (Cholecalciferol (Vitamin D3) 25 Mcg Tablet) 25 mcg PO DAILY [facility] Last Admin: 04/07/24 09:02 Dose: 25 mcg Allergies Allergies Allergy/AdvReac Type Severity Reaction Status Date / Time No Known Allergies Allergy Verified 12/25/23 17:04 Assessment & Plan Assessment & Plan (1) Schizoaffective disorder, depressive type: Status: Acute Code(s): F25.1 - Schizoaffective disorder, depressive type (2) Dementia: Status: Acute Code(s): F03.90 - Unspecified dementia, unspecified severity, without behavioral disturbance, psychotic disturbance, mood disturbance, and anxiety Plan The patient is an elderly female with a past history of schizoaffective disorder bipolar type, cognitive impairment and several medical comorbidities who was initially admitted for psychotic decompensation and needed to be transferred to Medicine due to sepsis. She was medically cleared transferring back into this facility for continuation of care. 02/21/24: Continue to encourage treatment. 02/22 continue tx. 02/23 Continue current regime and plan of care 02/24 Continue current regime and plan of care 02/28/24 Patient highly irritable, paranoid; started screaming at roommate to get out of her room and rushed at a peer; intrusive to this peers. Tag Marker tried to discuss this with patient who was guarded and angry. Said she was taking her medication and irritated when tag writer discussed otherwise. Patient seemed to agreed to get back on clozapine which was restarted 03/09- continue tx. 03/10 continue tx. 03/16/2024: Continue current regimen and plans 03/17/2024: Continue current regimen and plans 03/22/2024: Continue current plan 03/23: continue current management and treatment plan. 03/24: Continue current management and treatment plan. 04/05 schedule risperidone 1mg po BID. continue olanzapine 15mg po qhs. schedule trazodone 50mg po qhs.SBP 170's, will increase amlodipine 7.5mg po daily- she does have at times due to adrenal insufficiency hotn- will monitor. 04/06 gather urine for ucx- continue current medication- bp normal today- ongoing psychosis feels she is in hell 04/07 fears that someone will kill her today- agreed to prn- check ucx when available Reason for continued inpatient stay Substantial Risk for: inability to function and med/psych decompensation Time Spent With Patient Time: Total time managing care of this patient today ____ minutes.
--- NOTE | 2024-04-07 13:36 | PC.NURSE ---
Pt. psychotic and agitated, attempting to enter other patients' rooms. Pt. assaulting staff who attempt to redirect him and grabbing and forcefully twisting staffs' arms. Pt. already received PRNs without effect. notified and code assist called and pt. escorted to his room under his own power while continueing to attempt to grab staff. Pt. was physically held at 11:38 while IM haloperidol and IM lorazepam were administered. Physical hold released at 11:39. Pt's guardian, Patty Marcello updated by phone at 13:15.
[2024-04-07 20:00] VITALS: BP 112/56; PULSE 81; RESP 16; TEMP 35.7; O2SAT 96
[2024-04-07] MEDS: OLANZapine ODT 10 MG TAB.RAPDIS 15 MG TRANSLINGU (20:36)
[2024-04-07] MEDS: traZODone HCL 50 MG TABLET PO (20:37)
[2024-04-08 08:37] VITALS: BP 174/79; PULSE 67; RESP 16; TEMP 36.6; O2SAT 98
[2024-04-08] MEDS: risperiDONE 1 MG TABLET PO (08:58)
[2024-04-08] MEDS: Atorvastatin Calcium 20 MG TABLET PO (08:58)
[2024-04-08] MEDS: predniSONE 1 MG TABLET PO (08:58)
[2024-04-08] MEDS: amLODIPine Besylate 2.5 MG TABLET 7.5 MG PO (08:59)
[2024-04-08] MEDS: predniSONE 5 MG TABLET PO (09:00)
[2024-04-08] MEDS: Fludrocortisone Acetate 0.1 MG TABLET PO ×2 (09:00→19:55)
[2024-04-08] MEDS: Cholecalciferol (Vitamin D3) 25 MCG TABLET PO (09:01)
--- NOTE | 2024-04-08 11:04 | P.PNPSI_ITS ---
Subjective Subjective Date of Service: 04/08/24 Reason For Visit: dementia psychosis Interim History: Pt seen, discussed with team, who report no current concerns today. Pt is sleeping when seen. She and room-mate have a one to one who reports pt with no current sx of distress. Appears calm, comfortable, sleeping soundly Medication Compliance: Yes Attending Groups: Intermittent Review of Systems Medical Review of Systems: unchanged Review of Systems Review of Systems team reports no current sx Mental Status Exam Mental Status Exam Patient Behavior: Asleep Diagnostics Vital Signs (24Hr): Vital Signs - 24 hr 04/07/24 20:00 04/08/24 08:37 Temperature 96.2 F L 97.9 F Pulse Rate 81 67 Respiratory Rate 16 16 Blood Pressure 112/56 L 174/79 H Pulse Oximetry 96 98 Oxygen Delivery Method Room Air Room Air BMI result Body Mass Index 23.6 Labs 04/01/24 07:18 Medications Medications Current Medications Acetaminophen (Acetaminophen 325 Mg Tablet) 650 mg PO Q6H PRN PRN Reason: Headache/Pain Mild Scale (1-3) Last Admin: 04/01/24 20:34 Dose: 650 mg Al Hydroxide/Mg Hydroxide (Magnesium Hydrox/Alum Hydrox 30 Ml Oral.Susp) 30 ml PO Q6H PRN PRN Reason: Heartburn/Nausea Last Admin: 03/22/24 09:31 Dose: 30 ml Amlodipine Besylate (Amlodipine Besylate 2.5 Mg Tablet) 7.5 mg PO DAILY REPLACED BY [facility]; Protocol Last Admin: 04/08/24 08:59 Dose: 7.5 mg Atorvastatin Calcium (Atorvastatin Calcium 20 Mg Tablet) 20 mg PO DAILY REPLACED BY [facility] Last Admin: 04/08/24 08:58 Dose: 20 mg Benzocaine (Benzocaine 20 % Oral Gel 9 Gm Tube) 1 appl MUCOUS MEM QID PRN; Protocol PRN Reason: Pain, Mild (Pain Scale 1-3) Fludrocortisone Acetate (Fludrocortisone Acetate 0.1 Mg Tablet) 0.1 mg PO BID REPLACED BY [facility] Last Admin: 04/08/24 09:00 Dose: 0.1 mg Guaifenesin/Dextromethorphan (Guaifenesin Dm 600/30 1 Tab Tab.Er.12h) 1 tab PO BID PRN PRN Reason: Cough Last Admin: 04/02/24 00:35 Dose: 1 tab Magnesium Hydroxide (Milk Of Magnesia 30 Ml Oral.Susp) 30 ml PO DAILY PRN PRN Reason: Constipation Olanzapine (Olanzapine Odt 10 Mg Tab.Rapdis) 10 mg TRANSLINGU BID PRN PRN Reason: agitation Last Admin: 04/03/24 18:53 Dose: 10 mg Olanzapine (Olanzapine Odt 10 Mg Tab.Rapdis) 15 mg TRANSLINGU BEDTIME REPLACED BY [facility] Last Admin: 04/07/24 20:36 Dose: 15 mg Prednisone (Prednisone 1 Mg Tablet) 1 mg PO DAILY REPLACED BY [facility] Last Admin: 04/08/24 08:58 Dose: 1 mg Prednisone (Prednisone 5 Mg Tablet) 5 mg PO DAILY REPLACED BY [facility] Last Admin: 04/08/24 09:00 Dose: 5 mg Risperidone (Risperidone 1 Mg Tablet) 1 mg PO TID PRN PRN Reason: psychosis/agitation Last Admin: 04/07/24 20:38 Dose: 1 mg Risperidone (Risperidone 1 Mg Tablet) 1 mg PO BID REPLACED BY [facility] Last Admin: 04/08/24 08:58 Dose: 1 mg Senna (Sennosides 8.6 Mg Tablet) 17.2 mg PO DAILY PRN PRN Reason: constipation Trazodone HCl (Trazodone Hcl 50 Mg Tablet) 50 mg PO BEDTIME REPLACED BY [facility] Last Admin: 04/07/24 20:37 Dose: 50 mg Trazodone HCl (Trazodone Hcl 50 Mg Tablet) 50 mg PO BEDTIME PRN PRN Reason: Insomnia Vitamin D (Cholecalciferol (Vitamin D3) 25 Mcg Tablet) 25 mcg PO DAILY REPLACED BY [facility] Last Admin: 04/08/24 09:01 Dose: 25 mcg Allergies Allergies Allergy/AdvReac Type Severity Reaction Status Date / Time No Known Allergies Allergy Verified 12/25/23 17:04 Assessment & Plan Assessment & Plan (1) Schizoaffective disorder, depressive type: Status: Acute Code(s): F25.1 - Schizoaffective disorder, depressive type (2) Dementia: Status: Acute Code(s): F03.90 - Unspecified dementia, unspecified severity, without behavioral disturbance, psychotic disturbance, mood disturbance, and anxiety Plan The patient is an elderly female with a past history of schizoaffective disorder bipolar type, cognitive impairment and several medical comorbidities who was initially admitted for psychotic decompensation and needed to be transferred to Medicine due to sepsis. She was medically cleared transferring back into this facility for continuation of care. 02/21/24: Continue to encourage treatment. 02/22 continue tx. 02/23 Continue current regime and plan of care 02/24 Continue current regime and plan of care 02/28/24 Patient highly irritable, paranoid; started screaming at roommate to get out of her room and rushed at a peer; intrusive to this peers. Methane Gas Collection System Operator tried to discuss this with patient who was guarded and angry. Said she was taking her medication and irritated when software writer discussed otherwise. Patient seemed to agreed to get back on clozapine which was restarted 03/09- continue tx. 03/10 continue tx. 03/16/2024: Continue current regimen and plans 03/17/2024: Continue current regimen and plans 03/22/2024: Continue current plan 03/23: continue current management and treatment plan. 03/24: Continue current management and treatment plan. 04/05 schedule risperidone 1mg po BID. continue olanzapine 15mg po qhs. schedule trazodone 50mg po qhs.SBP 170's, will increase amlodipine 7.5mg po daily- she does have at times due to adrenal insufficiency hotn- will monitor. 04/06 gather urine for ucx- continue current medication- bp normal today- ongoing psychosis feels she is in hell 04/07 fears that someone will kill her today- agreed to prn- check ucx when available 04/08 continue current plans/regime Reason for continued inpatient stay Substantial Risk for: rapid decompensation Time Spent With Patient Time: Total time managing care of this patient today ____ minutes.
--- NOTE | 2024-04-08 12:01 | HO.PSYCHPN ---
Subjective Subjective Date of Service: 04/08/24 Reason For Visit: dementia psychosis Subjective Notes: Conditional Voluntary Interim History: Pt slept through the night. She reports she continues to hear voices. She states she is depressed due to content of AH. She reports voices are threatening her. She reports feeling safe here. No behavioral concerns. SBP elevated 170's- continue to monitor Medication Compliance: Yes Review of Systems Review of Systems Pt denies currently Yes all other systems are reviewed and are negative and Unobtainable due to mental status Diagnostics Vital Signs (24Hr): Vital Signs - 24 hr 04/07/24 20:00 04/08/24 08:37 Temperature 96.2 F L 97.9 F Pulse Rate 81 67 Respiratory Rate 16 16 Blood Pressure 112/56 L 174/79 H Pulse Oximetry 96 98 Oxygen Delivery Method Room Air Room Air BMI result Body Mass Index 23.6 Labs 04/01/24 07:18 Medications Medications Current Medications Acetaminophen (Acetaminophen 325 Mg Tablet) 650 mg PO Q6H PRN PRN Reason: Headache/Pain Mild Scale (1-3) Last Admin: 04/01/24 20:34 Dose: 650 mg Al Hydroxide/Mg Hydroxide (Magnesium Hydrox/Alum Hydrox 30 Ml Oral.Susp) 30 ml PO Q6H PRN PRN Reason: Heartburn/Nausea Last Admin: 03/22/24 09:31 Dose: 30 ml Amlodipine Besylate (Amlodipine Besylate 2.5 Mg Tablet) 7.5 mg PO DAILY [facility]; Protocol Last Admin: 04/08/24 08:59 Dose: 7.5 mg Atorvastatin Calcium (Atorvastatin Calcium 20 Mg Tablet) 20 mg PO DAILY [facility] Last Admin: 04/08/24 08:58 Dose: 20 mg Benzocaine (Benzocaine 20 % Oral Gel 9 Gm Tube) 1 appl MUCOUS MEM QID PRN; Protocol PRN Reason: Pain, Mild (Pain Scale 1-3) Fludrocortisone Acetate (Fludrocortisone Acetate 0.1 Mg Tablet) 0.1 mg PO BID [facility] Last Admin: 04/08/24 09:00 Dose: 0.1 mg Guaifenesin/Dextromethorphan (Guaifenesin Dm 600/30 1 Tab Tab.Er.12h) 1 tab PO BID PRN PRN Reason: Cough Last Admin: 04/02/24 00:35 Dose: 1 tab Magnesium Hydroxide (Milk Of Magnesia 30 Ml Oral.Susp) 30 ml PO DAILY PRN PRN Reason: Constipation Olanzapine (Olanzapine Odt 10 Mg Tab.Rapdis) 10 mg TRANSLINGU BID PRN PRN Reason: agitation Last Admin: 04/03/24 18:53 Dose: 10 mg Olanzapine (Olanzapine Odt 10 Mg Tab.Rapdis) 15 mg TRANSLINGU BEDTIME [facility] Last Admin: 04/07/24 20:36 Dose: 15 mg Prednisone (Prednisone 1 Mg Tablet) 1 mg PO DAILY [facility] Last Admin: 04/08/24 08:58 Dose: 1 mg Prednisone (Prednisone 5 Mg Tablet) 5 mg PO DAILY [facility] Last Admin: 04/08/24 09:00 Dose: 5 mg Risperidone (Risperidone 1 Mg Tablet) 1 mg PO TID PRN PRN Reason: psychosis/agitation Last Admin: 04/07/24 20:38 Dose: 1 mg Risperidone (Risperidone 1 Mg Tablet) 1 mg PO BID [facility] Last Admin: 04/08/24 08:58 Dose: 1 mg Senna (Sennosides 8.6 Mg Tablet) 17.2 mg PO DAILY PRN PRN Reason: constipation Trazodone HCl (Trazodone Hcl 50 Mg Tablet) 50 mg PO BEDTIME [facility] Last Admin: 04/07/24 20:37 Dose: 50 mg Trazodone HCl (Trazodone Hcl 50 Mg Tablet) 50 mg PO BEDTIME PRN PRN Reason: Insomnia Vitamin D (Cholecalciferol (Vitamin D3) 25 Mcg Tablet) 25 mcg PO DAILY [facility] Last Admin: 04/08/24 09:01 Dose: 25 mcg Allergies Allergies Allergy/AdvReac Type Severity Reaction Status Date / Time No Known Allergies Allergy Verified 12/25/23 17:04 Assessment & Plan Assessment & Plan (1) Schizoaffective disorder, depressive type: Status: Acute Code(s): F25.1 - Schizoaffective disorder, depressive type (2) Dementia: Status: Acute Code(s): F03.90 - Unspecified dementia, unspecified severity, without behavioral disturbance, psychotic disturbance, mood disturbance, and anxiety Plan The patient is an elderly female with a past history of schizoaffective disorder bipolar type, cognitive impairment and several medical comorbidities who was initially admitted for psychotic decompensation and needed to be transferred to Medicine due to sepsis. She was medically cleared transferring back into this facility for continuation of care. 02/21/24: Continue to encourage treatment. 02/22 continue tx. 02/23 Continue current regime and plan of care 02/24 Continue current regime and plan of care 02/28/24 Patient highly irritable, paranoid; started screaming at roommate to get out of her room and rushed at a peer; intrusive to this peers. Reading Tutor tried to discuss this with patient who was guarded and angry. Said she was taking her medication and irritated when database report writer discussed otherwise. Patient seemed to agreed to get back on clozapine which was restarted 03/09- continue tx. 03/10 continue tx. 03/16/2024: Continue current regimen and plans 03/17/2024: Continue current regimen and plans 03/22/2024: Continue current plan 03/23: continue current management and treatment plan. 03/24: Continue current management and treatment plan. 04/05 schedule risperidone 1mg po BID. continue olanzapine 15mg po qhs. schedule trazodone 50mg po qhs.SBP 170's, will increase amlodipine 7.5mg po daily- she does have at times due to adrenal insufficiency hotn- will monitor. 04/06 gather urine for ucx- continue current medication- bp normal today- ongoing psychosis feels she is in hell 04/07 fears that someone will kill her today- agreed to prn- check ucx when available 04/08 increase risperidone to 2mg po BID. continue olanzapine.monitor SBP. Reason for continued inpatient stay Substantial Risk for: inability to function Time Spent With Patient Time: Total time managing care of this patient today ____ minutes.
[2024-04-08] MEDS: risperiDONE 2 MG TABLET PO (19:55)
[2024-04-08] MEDS: traZODone HCL 50 MG TABLET PO (19:55)
[2024-04-08] MEDS: OLANZapine ODT 10 MG TAB.RAPDIS 15 MG TRANSLINGU (19:57)
[2024-04-08 20:00] VITALS: BP 122/74; PULSE 101; RESP 16; TEMP 37.2; O2SAT 97
[2024-04-09 07:50] VITALS: BP 132/80; PULSE 72; RESP 18; TEMP 36.9; O2SAT 99
[2024-04-09] MEDS: predniSONE 5 MG TABLET PO (08:08)
[2024-04-09] MEDS: Fludrocortisone Acetate 0.1 MG TABLET PO ×2 (08:08→20:35)
[2024-04-09] MEDS: risperiDONE 2 MG TABLET PO ×2 (08:08→20:35)
[2024-04-09] MEDS: predniSONE 1 MG TABLET PO (08:08)
[2024-04-09] MEDS: amLODIPine Besylate 2.5 MG TABLET 7.5 MG PO (08:08)
[2024-04-09] MEDS: Atorvastatin Calcium 20 MG TABLET PO (08:08)
[2024-04-09] MEDS: Cholecalciferol (Vitamin D3) 25 MCG TABLET PO (08:09)
--- NOTE | 2024-04-09 11:43 | HO.PSYCHPN ---
Subjective Subjective Date of Service: 04/09/24 Reason For Visit: dementia psychosis Subjective Notes: Conditional Voluntary Interim History: The nursing staff reported the patient complained of auditory hallucinations yesterday about terrible things. She had been compliant with treatment. The social sciences department chair reported today we will have the court hearing for the permanent guardianship so we can place her. On interview the patient reported voices and agreed on an increase so far antipsychotics., waiting for placement. Mental Status Exam Mental Status Exam Patient Appearance: Well Grooomed Patient Orientation: Person and Situation Level of Consciousness: Awake and Appropriate Patient Behavior: Guarded and Passive Mood Description: Withdrawn Affect Description: Constricted Patient Cognition Impaired: Yes Ability to Follow Directions: Good Speech Pattern: Clear Hallucinations: Auditory Delusions: Paranoid Ideation Thought Process: Distracted and Slowed Thinking Thought Content: positive for [place] and positive for Poverty of Content Judgement: Fair Diagnostics Vital Signs (24Hr): Vital Signs - 24 hr 04/08/24 20:00 04/09/24 07:50 Temperature 98.9 F 98.4 F Pulse Rate 101 H 72 Respiratory Rate 16 18 Blood Pressure 122/74 132/80 Pulse Oximetry 97 99 Oxygen Delivery Method Room Air Room Air BMI result Body Mass Index 23.6 Labs 04/01/24 07:18 Labs: Laboratory Results - last 48 hr 04/05/24 16:13 Estimat Average Glucose 111 Hemoglobin A1c % 5.5 Medications Medications Current Medications Acetaminophen (Acetaminophen 325 Mg Tablet) 650 mg PO Q6H PRN PRN Reason: Headache/Pain Mild Scale (1-3) Last Admin: 04/01/24 20:34 Dose: 650 mg Al Hydroxide/Mg Hydroxide (Magnesium Hydrox/Alum Hydrox 30 Ml Oral.Susp) 30 ml PO Q6H PRN PRN Reason: Heartburn/Nausea Last Admin: 03/22/24 09:31 Dose: 30 ml Amlodipine Besylate (Amlodipine Besylate 2.5 Mg Tablet) 7.5 mg PO DAILY [facility]; Protocol Last Admin: 04/09/24 08:08 Dose: 7.5 mg Atorvastatin Calcium (Atorvastatin Calcium 20 Mg Tablet) 20 mg PO DAILY [facility] Last Admin: 04/09/24 08:08 Dose: 20 mg Benzocaine (Benzocaine 20 % Oral Gel 9 Gm Tube) 1 appl MUCOUS MEM QID PRN; Protocol PRN Reason: Pain, Mild (Pain Scale 1-3) Fludrocortisone Acetate (Fludrocortisone Acetate 0.1 Mg Tablet) 0.1 mg PO BID [facility] Last Admin: 04/09/24 08:08 Dose: 0.1 mg Guaifenesin/Dextromethorphan (Guaifenesin Dm 600/30 1 Tab Tab.Er.12h) 1 tab PO BID PRN PRN Reason: Cough Last Admin: 04/02/24 00:35 Dose: 1 tab Magnesium Hydroxide (Milk Of Magnesia 30 Ml Oral.Susp) 30 ml PO DAILY PRN PRN Reason: Constipation Olanzapine (Olanzapine Odt 10 Mg Tab.Rapdis) 10 mg TRANSLINGU BID PRN PRN Reason: agitation Last Admin: 04/03/24 18:53 Dose: 10 mg Olanzapine (Olanzapine Odt 10 Mg Tab.Rapdis) 15 mg TRANSLINGU BEDTIME [facility] Last Admin: 04/08/24 19:57 Dose: 15 mg Prednisone (Prednisone 1 Mg Tablet) 1 mg PO DAILY [facility] Last Admin: 04/09/24 08:08 Dose: 1 mg Prednisone (Prednisone 5 Mg Tablet) 5 mg PO DAILY [facility] Last Admin: 04/09/24 08:08 Dose: 5 mg Risperidone (Risperidone 2 Mg Tablet) 2 mg PO BID [facility] Last Admin: 04/09/24 08:08 Dose: 2 mg Senna (Sennosides 8.6 Mg Tablet) 17.2 mg PO DAILY PRN PRN Reason: constipation Trazodone HCl (Trazodone Hcl 50 Mg Tablet) 50 mg PO BEDTIME [facility] Last Admin: 04/08/24 19:55 Dose: 50 mg Trazodone HCl (Trazodone Hcl 50 Mg Tablet) 50 mg PO BEDTIME PRN PRN Reason: Insomnia Vitamin D (Cholecalciferol (Vitamin D3) 25 Mcg Tablet) 25 mcg PO DAILY [facility] Last Admin: 04/09/24 08:09 Dose: 25 mcg Allergies Allergies Allergy/AdvReac Type Severity Reaction Status Date / Time No Known Allergies Allergy Verified 12/25/23 17:04 Assessment & Plan Assessment & Plan (1) Schizoaffective disorder, depressive type: Status: Acute Code(s): F25.1 - Schizoaffective disorder, depressive type (2) Dementia: Status: Acute Code(s): F03.90 - Unspecified dementia, unspecified severity, without behavioral disturbance, psychotic disturbance, mood disturbance, and anxiety Plan The patient is an elderly female with a past history of schizoaffective disorder bipolar type, cognitive impairment and several medical comorbidities who was initially admitted for psychotic decompensation and needed to be transferred to Medicine due to sepsis. She was medically cleared transferring back into this facility for continuation of care. 02/21/24: Continue to encourage treatment. 02/22 continue tx. 02/23 Continue current regime and plan of care 02/24 Continue current regime and plan of care 02/28/24 Patient highly irritable, paranoid; started screaming at roommate to get out of her room and rushed at a peer; intrusive to this peers. General Manager Food tried to discuss this with patient who was guarded and angry. Said she was taking her medication and irritated when global technical writer discussed otherwise. Patient seemed to agreed to get back on clozapine which was restarted 03/09- continue tx. 03/10 continue tx. 03/16/2024: Continue current regimen and plans 03/17/2024: Continue current regimen and plans 03/22/2024: Continue current plan 03/23: continue current management and treatment plan. 03/24: Continue current management and treatment plan. 04/05 schedule risperidone 1mg po BID. continue olanzapine 15mg po qhs. schedule trazodone 50mg po qhs.SBP 170's, will increase amlodipine 7.5mg po daily- she does have at times due to adrenal insufficiency hotn- will monitor. 04/06 gather urine for ucx- continue current medication- bp normal today- ongoing psychosis feels she is in hell 04/07 fears that someone will kill her today- agreed to prn- check ucx when available 04/08 continue current plans/regime 04/09 increase Zyprexa Zydis to 20 mg p.o. q.h.s. and keep Risperdal 2 mg p.o. b.i.d.. Reason for continued inpatient stay Substantial Risk for: inability to function, rapid decompensation and med/psych decompensation Time Spent With Patient Time: Total time managing care of this patient today __20__ minutes.
[2024-04-09 15:05] VITALS: BP 144/62; PULSE 127; RESP 18; TEMP 39; O2SAT 95
[2024-04-09] MEDS: Acetaminophen 325 MG TABLET 650 MG PO (15:06)
[2024-04-09] MEDS: OLANZapine ODT 10 MG TAB.RAPDIS TRANSLINGU (15:06)
[2024-04-09 16:13] LABS: Influenza A PCR NEGATIVE (Negative); Influenza B PCR NEGATIVE (Negative); Resp Syncy Virus RNA Qual PCR NEGATIVE (Negative); SARS COV2 PCR INHOUSE NEGATIVE (Negative)
[2024-04-09 16:15] LABS: MANUAL DIFF FLAG NO
[2024-04-09 16:17] LABS: Basophils Absolute Auto 0.1 X10*3/uL (0.0-0.2); Basophils Percent Auto 0.4 % (0-2); Eosinophils Percent Auto 0.1 % (0-4); Hematocrit 36.5 % (37.0-47.0); Hemoglobin 12.2 g/dl (12.0-16.0); Imm Gran Abs Auto 0.05 X10*3/uL (0.00-0.03); Imm Gran Pct Auto 0.4 % (0.0-0.4); Lymphocytes Absolute Auto 1.5 X10*3/uL (1.2-4.9); Lymphocytes Percent Auto 11.2 % (20-40); Mean Corpuscular HGB Conc 33.4 g/dl (31.0-35.0); Mean Corpuscular Volume 86.9 fL (80.0-98.0); Mean Platelet Volume 9.1 fL (9.4-12.3); Monocytes Absolute Auto 0.8 X10*3/uL (0.1-1.2); Monocytes Percent Auto 5.7 % (2-11); Neutrophils Absolute Auto 11.1 x10*3/uL (2.0-8.3); Neutrophils Percent Auto 82.2 % (45-73); Platelet Count 284 X10*3/uL (160-400); Red Cell Distribution Width 14.7 % (11.0-16.0); White Blood Count 13.5 X10*3/uL (4.8-10.8)
--- NOTE | 2024-04-09 16:17 | PC.NURSE ---
Pt c/o difficulty breathing, VS 144/62 127 18 Spo2 95%, Tylenol given with good effect. Dr Darling notified, labs and cultures ordered. Pt resting comfortable in her room.
[2024-04-09 16:31] LABS: Anion Gap 16 (12-20); Blood Urea Nitrogen 18 mg/dL (9-16); Calcium 9.1 mg/dL (8.4-10.2); Carbon Dioxide 23 mmol/L (22-29); Chloride 105 mmol/L (96-108); Creatinine Clr Calc Pharmacy 64.4; Estimated Glomerular Filt Rate > 60; Glucose Random 155 mg/dL (60-115); Potassium 3.6 mmol/L (3.3-5.1); Sodium 140 mmol/L (135-145)
[2024-04-09 20:00] VITALS: BP 106/54; PULSE 92; TEMP 38.2; O2SAT 91
[2024-04-09] MEDS: traZODone HCL 50 MG TABLET PO (20:34)
[2024-04-09] MEDS: OLANZapine ODT 10 MG TAB.RAPDIS 20 MG TRANSLINGU (20:34)
[2024-04-09 21:46] LABS: VBG HCO3 28 mmol/L (22-26); VBG pCO2 28 mmHg; VBG pO2 128 mmHg
[2024-04-09 21:48] LABS: Venous Blood Gas Refer to POC result
[2024-04-09 21:52] LABS: Lactic Acid 1.8 mmol/L (0.5-2.0)
[2024-04-09 22:10] VITALS: BP 120/60; PULSE 104; TEMP 37.3; O2SAT 96
[2024-04-09 22:13] LABS: Procalcitonin 3.03 ng/mL
--- NOTE | 2024-04-09 22:54 | HO.PSYEVENT2 ---
Event Note Date of Service: 04/09/24 Psych On-Call Event Note: pt transferred to medical floor secondary to sepsis . case reviewed with dr rai . will need fluids iv antibiotics hx adrenal insufficiency. Probable return to geripsych Time Spent With Patient Time: Total time managing care of this patient today ____ minutes.
[2024-04-10 10:04] LABS: Adenovirus PCR Not Detected (Not Detect.); Bordetella parapertussis PCR Not Detected (Not Detect.); Bordetella pertussis PCR Not Detected (Not Detect.); Chlamydia pneumoniae PCR Not Detected (Not Detect.); Coronavirus 229E PCR Not Detected (Not Detect.); Coronavirus HKU1 PCR Not Detected (Not Detect.); Coronavirus NL63 PCR Not Detected (Not Detect.); Coronavirus OC43 PCR Not Detected (Not Detect.); Human metapneumovirus PCR Not Detected (Not Detect.); Influenza A PCR Not Detected (Not Detect.); Influenza B PCR Not Detected (Not Detect.); Mycoplasma pneumoniae PCR Not Detected (Not Detect.); Parainfluenza 1 PCR Not Detected (Not Detect.); Parainfluenza 2 PCR Not Detected (Not Detect.); Parainfluenza 3 PCR Not Detected (Not Detect.); Parainfluenza 4 PCR Not Detected (Not Detect.); RSV PCR Not Detected (Not Detect.); Rhino/Enterovirus PCR Not Detected (Not Detect.)
[2024-04-10 11:21] LABS: SARS-CoV-2 PCR Not Detected (Not Detect.)
--- NOTE | 2024-04-10 22:00 | P.DS_ITS ---
DS: Providers Provider Date of Service: 04/09/24 <Jacinto Lowe MD - Last Filed: 04/12/24 08:07> Date of discharge: 04/09/24 <Jacinto Lowe MD - Last Filed: 04/12/24 08:07> Primary care physician: Unknown Physician <Blaine Butterfield MD - Last Filed: 04/15/24 21:28> Discharging clinician: Blaine Butterfield <Blaine Butterfield MD - Last Filed: 04/15/24 21:28> DS: Diagnosis Discharge Diagnosis (1) Schizophrenia: Status: Acute <Blaine Butterfield MD - Last Filed: 04/15/24 21:28> DS: Medications Discharge Medications Home Medications: Home Medications ?Medication ?Instructions ?Recorded ?Confirmed cholecalciferol (vitamin D3) 25 25 mcg PO DAILY 12/25/23 04/10/24 mcg (1,000 unit) capsule (Vitamin D3) fludrocortisone 0.1 mg tablet 0.1 mg PO BID 12/25/23 04/10/24 prednisone 1 mg tablet 1 mg PO DAILY 12/25/23 04/10/24 prednisone 5 mg tablet 5 mg PO DAILY 12/25/23 04/10/24 sennosides 8.6 mg tablet (senna) 17.2 mg PO DAILY 12/25/23 04/10/24 Previous Rx's ?Medication ?Instructions ?Recorded amlodipine 5 mg tablet 5 mg PO DAILY #1 tab 01/28/24 atorvastatin 20 mg tablet 20 mg PO DAILY #1 tab 01/28/24 <Blaine Butterfield MD - Last Filed: 04/15/24 21:28> Mental Status Exam Mental Status Exam Patient Appearance: Unkempt <Jacinto Lowe MD - Last Filed: 04/12/24 08:07> Patient Orientation: Person <Jacinto Lowe MD - Last Filed: 04/12/24 08:07> Level of Consciousness: Obtunded <Jacinto Lowe MD - Last Filed: 04/12/24 08:07> Patient Behavior: Suspicious <Jacinto Lowe MD - Last Filed: 04/12/24 08:07> Mood Description: Withdrawn <Jacinto Lowe MD - Last Filed: 04/12/24 08:07> Affect Description: Blunted <Jacinto Lowe MD - Last Filed: 04/12/24 08:07> Patient Cognition Impaired: Yes <Jacinto Lowe MD - Last Filed: 04/12/24 08:07> Ability to Follow Directions: Fair <Jacinto Lowe MD - Last Filed: 04/12/24 08:07> Hallucinations: None <Jacinto Lowe MD - Last Filed: 04/12/24 08:07> Delusions: Paranoid Ideation <Jacinto Lowe MD - Last Filed: 04/12/24 08:07> Thought Process: Illogical <Jacinto Lowe MD - Last Filed: 04/12/24 08:07> Thought Content: positive for Circumstantial <Jacinto Lowe MD - Last Filed: 04/12/24 08:07> Judgement: Poor <Jacinto Lowe MD - Last Filed: 04/12/24 08:07> Data Data Completed and Pending Completed studies during hospitalization [Text1]: 04/10/24 04/10/24 04/10/24 02:48 07:59 13:10 WBC 9.7 RBC 3.64 L Hgb 10.7 L Hct 32.1 L MCV 88.2 MCH 29.4 MCHC 33.3 RDW 14.9 Plt Count 231 MPV 9.3 L Immature Gran % (Auto) 0.3 Neut % (Auto) 83.2 H Lymph % (Auto) 10.9 L [place] % (Auto) 4.7 Eos % (Auto) 0.7 Baso % (Auto) 0.2 Lymph # (Auto) 1.1 L [place] # (Auto) 0.5 Eos # (Auto) 0.1 Baso # (Auto) 0.0 Abs Immat Gran (auto) 0.03 Absolute Neuts (auto) 8.1 Absolute Nucleated RBC 0.000 Nucleated RBC % (auto) 0.0 Sodium 141 Potassium 3.5 Chloride 108 Carbon Dioxide 25 Anion Gap 12 BUN 17 H Creatinine 0.65 Estim Creat Clear Calc 67.5 Estimated GFR > 60 Random Glucose 109 Calcium 8.7 B-Natriuretic Peptide 30 Urine Color Yellow Urine Appearance Clear Urine pH 7.5 Ur Specific [place] 1.010 Urine Protein Negative Urine Glucose (UA) Negative Urine Ketones Negative Urine Blood Small (1+) H Urine Nitrite Negative Ur Leukocyte Esterase Small (1+) H Urine RBC 0-2 Urine WBC 0-5 Ur Squamous Epith Cells 0-2 Urine Bacteria Trace Hyaline Casts 0-2 Stl C. cayetanensis PCR Not Detected Stool Rotavirus A PCR Not Detected Stl Adenov F 40/41 PCR Not Detected Stool Astrovirus (PCR) Not Detected Stool Campylobacter PCR Not Detected Stool Cryptosporidium PCR Not Detected Stl Sh Tox Pr E STEC PCR Not Detected Stool E coli O157 PCR Not applicable Stl Enterotoxigenic E PCR Not Detected Stool EPEC (PCR) Not Detected Stool EAEC (PCR) Not Detected Stl E. histolytica PCR Not Detected Stool Giardia Lamblia PCR Not Detected Stl P. shigelloides PCR Not Detected Stool Salmonella PCR Not Detected Stool Sapovirus (PCR) Not Detected Stl Shigella/EIEC PCR Not Detected St Y.enterocolitica PCR Not Detected Stool Vibrio (PCR) Not Detected Stl Vibrio cholerae PCR Not Detected Stl Norovirus GI/GII PCR Detected A C. difficile Tox B Gene NEGATIVE 04/10/24 Unknown Urine clean catch - Clean Catch Midstream Urine Culture - Pending <Blaine Butterfield MD - Last Filed: 04/15/24 21:28> DS: Summary Hospital Course Hospital Course: from initial hpi: 73-year-old female with a past medical history significant for dementia, HLD, schizophrenia, transferred from the Geriatric psych floor due to fever and difficulty breathing. highest mesaured temp of 102.2. unable to obtain any history from the pt due to mental status. she refused exam and states that she feels fine and is not having any trouble breathing and the demons are making me do this to her . she demanded I leave the room. her nurse reported hospital course: Patient was admitted for sepsis due to aspiration pneumonia due to vomiting from norovirus. Was treated with IV Unasyn and will be discharged on 5 more days of Augmentin. Was seen by speech who recommended NDD3 solids and thin liquids. Had respiratory viral panel which was negative. Sepsis resolved and patient's fevers resolved. Patient feels back to baseline. For adrenal insufficiency received stress dosing and is now back on baseline prednisone and Florinef. For hyperlipidemia was continued on statin. For hypertension amlodipine has been held for low normal blood pressures. For schizophrenia continues to have chronic delusions does not require inpatient psychiatry anymore we will continue to follow in community. <Blaine Butterfield MD - Last Filed: 04/15/24 21:28> Time spent discussing smoking cessation with patient: 3 to 10 minutes <Jacinto Lowe MD - Last Filed: 04/12/24 08:07> Status at Discharge Functional status at discharge: independent ambulation <Jacinto Lowe MD - Last Filed: 04/12/24 08:07> Overall status at discharge: patient is not back to baseline <Jacinto Lowe MD - Last Filed: 04/12/24 08:07> Time Spent with Patient Time attestation: Total time managing care of this patient today ____ minutes. <Blaine Butterfield MD - Last Filed: 04/15/24 21:28> Total time managing care of this patient today __30__ minutes. <Jacinto Lowe MD - Last Filed: 04/12/24 08:07> Time spent: Less than 30 minutes <Jacinto Lowe MD - Last Filed: 04/12/24 08:07> Discharge Plan Discharge Anticipated Discharge Date/Time: 04/10/24 23:03 <Blaine Butterfield MD - Last Filed: 04/15/24 21:28> Patient Disposition: Xfer Other <Blaine Butterfield MD - Last Filed: 04/15/24 21:28> Discharge Diagnosis: Schizophrenia Sepsis Pneumonia <Blaine Butterfield MD - Last Filed: 04/15/24 21:28> Schizophrenia Sepsis Pneumonia <Jacinto Lowe MD - Last Filed: 04/12/24 08:07> Referrals: Peterson Castillo [place] [Outside] - 1 Week Physician,Unknown J [Primary Care Provider] - 1 Week <Blaine Butterfield MD - Last Filed: 04/15/24 21:28> Discharge Medications: New atorvastatin 20 mg Tablet 20 mg PO DAILY 30 Days Qty: 30 0RF sodium chloride 0.9 % (flush) [BD PosiFlush Normal Saline 0.9] Syringe 3 ml IVFLUSH QSHIFT Qty: 1000 0RF prednisone 5 mg Tablet 15 mg PO DAILY 30 Days Qty: 90 0RF melatonin 3 mg Tablet 6 mg PO BEDTIME PRN (Reason: Insomnia) 30 Days Qty: 30 0RF benzonatate 100 mg Capsule 100 mg PO TID PRN (Reason: Cough) 30 Days Qty: 30 0RF fludrocortisone 0.1 mg Tablet 0.1 mg PO BID 30 Days Qty: 60 0RF cholecalciferol (vitamin D3) 25 mcg (1,000 unit) Tablet 25 mcg PO DAILY 30 Days Qty: 30 0RF amoxicillin-pot clavulanate 875-125 mg tablet 1 tab PO BID Qty: 10 0RF Discontinued sennosides [senna] 8.6 mg tablet 17.2 mg PO DAILY Patient Comments: last filled 12/21/23 prednisone 5 mg tablet 5 mg PO DAILY Patient Comments: last [id number]/24/24 prednisone 1 mg tablet 1 mg PO DAILY Patient Comments: last /24/24 fludrocortisone 0.1 mg tablet 0.1 mg PO BID cholecalciferol (vitamin D3) [Vitamin D3] 25 mcg (1,000 unit) capsule 25 mcg PO DAILY Patient Comments: Last filled 12/21/23 atorvastatin 20 mg Tablet 20 mg PO DAILY Qty: 1 0RF amlodipine 5 mg Tablet 5 mg PO DAILY Qty: 1 0RF Protocol: Hold for SBP< HOLD for SBP < : 90 <Blaine Butterfield MD - Last Filed: 04/15/24 21:28> Discharge Orders: Discharge Order (Routine); Ordered 04/12/24 Ordered By: Erasmo [place] <Blaine Butterfield MD - Last Filed: 04/15/24 21:28> Diet: ndd3 solids, thin liquids <Blaine Butterfield MD - Last Filed: 04/15/24 21:28> ndd3 solids, thin liquids <Jacinto Lowe MD - Last Filed: 04/12/24 08:07> Activity on Discharge: As tolerated <Blaine Butterfield MD - Last Filed: 04/15/24 21:28> As tolerated <Jacinto Lowe MD - Last Filed: 04/12/24 08:07> Stand Alone Forms: Patient Portal Discharge page <Blaine Butterfield MD - Last Filed: 04/15/24 21:28> Print Language: [place] <Blaine Butterfield MD - Last Filed: 04/15/24 21:28> Care Plan Goals: Recovery <Blaine Butterfield MD - Last Filed: 04/15/24 21:28> Health Concerns: Pneumonia, norovirus <Blaine Butterfield MD - Last Filed: 04/15/24 21:28> Plan of Treatment: 5 more days of Augmentin <Blaine Butterfield MD - Last Filed: 04/15/24 21:28> Assessment: See above <Blaine Butterfield MD - Last Filed: 04/15/24 21:28> Discharge Date/Time: 04/12/24 14:15 <Blaine Butterfield MD - Last Filed: 04/15/24 21:28>
--- NOTE | 2024-05-06 22:53 | P.HPPS_ITS ---
HPI Chief Complaint: dementia psychosis HPI Past Psychiatric History: Past psychiatric hospitalizations, most recently 08/17/2023 and the last one here 2 weeks ago [facility] [place] Medical History (Updated 04/23/24 @ 06:46 by Rima Ireland PA-C) Medical clearance for psychiatric admission Adrenal insufficiency Schizoaffective disorder, depressive type HLD (hyperlipidemia) Family History: Father alcoholism Social History: Patient grew up with her father and 2 sisters (1 now ) and 1 brother; their mother ran away when patient was 8 years old Patient remains in contact with her brother and sister who live locally Patient has 2 adult children, a 35-year-old daughter Leah and a 31-year-old son Yazan who lives locally Patient has been at [facility] for about 6 years and says she likes it Trauma History: Patient refers to growing up with alcoholic father who was scary Diagnostics Vital Signs (24Hr): BMI result Body Mass Index 23.6 Labs 04/09/24 16:12 04/09/24 16:12 Meds/Allergies Meds Home Medications ?Medication ?Instructions ?Recorded ?Confirmed ?Type atorvastatin 20 mg tablet 20 mg PO BEDTIME 04/22/24 04/23/24 History olanzapine 15 mg disintegrating 15 mg PO BEDTIME 04/22/24 04/23/24 History tablet (Zyprexa Zydis) acetaminophen 325 mg tablet 650 mg PO Q4H PRN Pain/Fever 04/23/24 04/23/24 History acetaminophen 650 mg rectal 650 mg HI Q4H PRN Pain/Fever 04/23/24 04/23/24 History suppository benzonatate 100 mg capsule 100 mg PO Q8H PRN Cough 04/23/24 04/23/24 History bisacodyl 10 mg rectal suppository 10 mg HI DAILY PRN Constipation 04/23/24 04/23/24 History magnesium hydroxide 400 mg/5 mL 30 ml PO DAILY PRN Constipation 04/23/24 04/23/24 History oral suspension (Milk of Magnesia) risperidone 1 mg tablet 1 mg PO BID PRN Increased 04/23/24 04/23/24 History Delusions/Agitation sodium phosphates 19 gram-7 118 ml HI DAILY PRN Constipation 04/23/24 04/23/24 History gram/118 mL enema (Fleet Enema) Allergies Allergies Allergy/AdvReac Type Severity Reaction Status Date / Time No Known Allergies Allergy Verified 12/25/23 17:04 Assessment & Plan Statement Statement: I have reviewed the history and physical and performed a pertinent examination on my patient. No changes have occurred unless specified. If the History and Physical was not performed prior to admission, the Hospitalist's service will be consulted for completing the admission physical. Time Spent With Patient Time: Total time managing care of this patient today ____ minutes.
--- NOTE | 2024-05-06 22:55 | P.DS_ITS ---
DS: Providers Provider Date of Service: 04/09/24 Date of admission: 01/31/24 12:54 Date of discharge: 04/09/24 Primary care physician: Unknown Physician Consults: 04/09/24 15:00 Consult to Hospitalist Routine Comment: Consulting Provider: [facility] Hospitalists Reason For Exam: fever 102 DS: Diagnosis Discharge Diagnosis (1) Schizoaffective disorder, depressive type: Status: Acute (2) Dementia: Status: Acute DS: Medications Discharge Medications Home Medications: Home Medications ?Medication ?Instructions ?Recorded ?Confirmed atorvastatin 20 mg tablet 20 mg PO BEDTIME 04/22/24 04/23/24 olanzapine 15 mg disintegrating 15 mg PO BEDTIME 04/22/24 04/23/24 tablet (Zyprexa Zydis) acetaminophen 325 mg tablet 650 mg PO Q4H PRN Pain/Fever 04/23/24 04/23/24 acetaminophen 650 mg rectal 650 mg WA Q4H PRN Pain/Fever 04/23/24 04/23/24 suppository benzonatate 100 mg capsule 100 mg PO Q8H PRN Cough 04/23/24 04/23/24 bisacodyl 10 mg rectal suppository 10 mg WA DAILY PRN Constipation 04/23/24 04/23/24 magnesium hydroxide 400 mg/5 mL 30 ml PO DAILY PRN Constipation 04/23/24 04/23/24 oral suspension (Milk of Magnesia) risperidone 1 mg tablet 1 mg PO BID PRN Increased 04/23/24 04/23/24 Delusions/Agitation sodium phosphates 19 gram-7 118 ml WA DAILY PRN Constipation 04/23/24 04/23/24 gram/118 mL enema (Fleet Enema) Previous Rx's ?Medication ?Instructions ?Recorded cholecalciferol (vitamin D3) 25 25 mcg PO DAILY 30 days #30 tabs 04/11/24 mcg (1,000 unit) tablet fludrocortisone 0.1 mg tablet 0.1 mg PO BID 30 days #60 tabs 04/11/24 melatonin 3 mg tablet 6 mg (2 x 3 mg) PO BEDTIME PRN 04/11/24 Insomnia 30 days #30 tabs prednisone 5 mg tablet 15 mg (3 x 5 mg) PO DAILY 30 days 04/11/24 #90 tabs Mental Status Exam Mental Status Exam Narrative: Unable to be examined at time of transfer Data Data Completed and Pending Completed studies during hospitalization [Text1]: 04/09/24 16:12 Blood - Venous Blood Culture - Final No growth after 5 days. 04/09/24 16:12 Blood - Venous Blood Culture - Final No growth after 5 days. 04/06/24 16:45 Urine clean catch Urine Culture - Final 03/04/24 Unknown Urine clean catch - Clean Catch Midstream Urine Culture - Final No growth. DS: Summary Hospital Course Hospital Course: Please see psychiatric admission note by Dr. 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 Patient was depressed withdrawn with auditory hallucinations. She was treated with olanzapine for psychosis prednisone for Kyle's. The patient was febrile dehydrated and had elevated lactic acid. Case was reviewed with hospitalist service Dr. Siu And was transferred for medical care to the medical floor in . Thought was most likely for patient transfer back to Psychiatry Status at Discharge Cognitive/behavioral status at discharge: irritable sob help rejecting Overall status at discharge: patient is not back to baseline Time Spent with Patient Time attestation: Total time managing care of this patient today ____ minutes. Discharge Plan Discharge Anticipated Discharge Date/Time: 04/09/24 22:02 Patient Disposition: Xfer Acute Care Hospital Discharge Diagnosis: sepsis dementia with paranoia adrenal insuff Referrals: Physician,Unknown J [Primary Care Provider] - 1 Week Discharge Medications: Discontinued risperidone 2 mg tablet 2 mg PO BID Patient Comments: last filled 12/21/23 clozapine 100 mg Tablet 100 mg PO BEDTIME Qty: 1 0RF No Action olanzapine [Zyprexa Zydis] 15 mg Tablet,Disintegrating 15 mg PO BEDTIME atorvastatin 20 mg tablet 20 mg PO BEDTIME acetaminophen 325 mg Tablet 650 mg PO Q4H PRN (Reason: Pain/Fever) acetaminophen 650 mg Suppository 650 mg WA Q4H PRN (Reason: Pain/Fever) magnesium hydroxide [Milk of Magnesia] 400 mg/5 mL Suspension 30 ml PO DAILY PRN (Reason: Constipation) Fleet Enema 19-7 gram/118 mL Enema 118 ml WA DAILY PRN (Reason: Constipation) risperidone 1 mg Tablet 1 mg PO BID PRN (Reason: Increased Delusions/Agitation) benzonatate 100 mg Capsule 100 mg PO Q8H PRN (Reason: Cough) bisacodyl 10 mg Suppository 10 mg WA DAILY PRN (Reason: Constipation) prednisone 5 mg Tablet 15 mg PO DAILY 30 Days Qty: 90 0RF melatonin 3 mg Tablet 6 mg PO BEDTIME PRN (Reason: Insomnia) 30 Days Qty: 30 0RF fludrocortisone 0.1 mg Tablet 0.1 mg PO BID 30 Days Qty: 60 0RF cholecalciferol (vitamin D3) 25 mcg (1,000 unit) Tablet 25 mcg PO DAILY 30 Days Qty: 30 0RF Discharge Orders: Discharge Order (Routine); Ordered 04/09/24 Ordered By: Blaine Butterfield Diet: per medicine Activity on Discharge: per medicine Stand Alone Forms: Patient Portal Discharge page Print Language: Vietnamese Care Plan Goals: stabilize infection ? sepsis Health Concerns: sepsis ? transfer to medicine Plan of Treatment: transfer to med floor hold antipsychotic till med stabilize reevaluate on floor Assessment: septic transfer to medicine Discharge Date/Time: 04/09/24 23:24
== END 2024-04-09 23:24 | disposition short-term general hospital (02) | DRG 885 ==
PROVIDERS: Psychiatry & Neurology Psychiatry; Social Worker; Student in an Organized Health Care Education/Training Program; Admitting Provider Psychiatry & Neurology Psychiatry; Visit Provider Psychiatry & Neurology Psychiatry
DX: F25.1 Schizoaffective disorder, depressive type (principal); A41.9 Sepsis, unspecified organism; E27.40 Unspecified adrenocortical insufficiency; F03.92 Unspecified dementia, unspecified severity, with psychotic disturbance; F17.210 Nicotine dependence, cigarettes, uncomplicated; Z71.6 Tobacco abuse counseling; Z79.52 Long term (current) use of systemic steroids; Z79.899 Other long term (current) drug therapy
CPT/HCPCS: 0241U; 36415; 71045; 80048; 80053; 80061; 81001; 82803; 83036; 83605; 84145; 85025; 85048; 87040; 87086; 87633; J1630

== ENCOUNTER → 2024-01-31 12:54 | Outpatient (BNV) | payer MEDICARE, MEDICAID, SELFPAY | PROVIDERS: Admitting Provider Psychiatry & Neurology Psychiatry; Visit Provider Psychiatry & Neurology Psychiatry | DX: F25.1 Schizoaffective disorder, depressive type (principal); F03.90 Unspecified dementia, unspecified severity, without behavioral disturbance, psychotic disturbance, mood disturbance, and anxiety | CPT/HCPCS: 99231; 99232; 99499 ==

== ENCOUNTER → 2024-01-31 12:54 | Outpatient (BNV) | payer MEDICARE, MEDICAID, SELFPAY | PROVIDERS: Admitting Provider Psychiatry & Neurology Psychiatry; Visit Provider Psychiatry & Neurology Psychiatry | DX: F25.1 Schizoaffective disorder, depressive type (principal); F03.90 Unspecified dementia, unspecified severity, without behavioral disturbance, psychotic disturbance, mood disturbance, and anxiety | CPT/HCPCS: 90792; 99231; 99232 ==

== ENCOUNTER 2024-04-09 23:58 | Outpatient (BNV) | payer MEDICARE, MEDICAID, SELFPAY | END 2024-04-10 00:34 | PROVIDERS: Admitting Provider Student in an Organized Health Care Education/Training Program; Visit Provider Radiology Diagnostic Radiology | DX: J18.9 Pneumonia, unspecified organism (principal) | CPT/HCPCS: 71250 ==

== ENCOUNTER 2024-04-09 23:58 | Inpatient (IN) | payer MEDICARE, MEDICAID, SELFPAY ==
--- NOTE | ~2024-04-09 | CT_ITS ---
CLINICAL HISTORY: ?fever and dyspnea ?Pneumonia CT chest without contrast Comparison: None Findings: Cardiomegaly without significant pericardial effusion. Coronary artery calcifications. Moderate-sized hiatal hernia. Atelectasis. Ill-defined patchy ground-glass and nodular consolidations throughout the right lung worse in the lower lobe. No significant pleural effusion or pneumothorax. The upper abdomen is unremarkable. No acute fractures. Postcholecystectomy. IMPRESSION: Ill-defined patchy ground-glass and nodular consolidations throughout the right lung worse in the lower lobe. Aspiration or pneumonia not excluded. This document has been electronically signed by: Trey Cabrera MD on 04/10/2024 01:17:30
--- NOTE | 2024-04-10 00:02 | PM.IMHP ---
History of Present Illness Date of Service: 04/10/24 Attending physician on admission: Edy Siu Chief Complaint: fever Patient is a 73-year-old female with a past medical history significant for dementia, HLD, schizophrenia, transferred from the Geriatric psych floor due to fever and difficulty breathing. highest mesaured temp of 102.2. unable to obtain any history from the pt due to mental status. she refused exam and states that she feels fine and is not having any trouble breathing and the demons are making me do this to her . she demanded I leave the room. her nurse reported Review of Systems Review of Systems: Yes Unobtainable due to mental status [facility] Medical History Adrenal insufficiency Schizoaffective disorder, depressive type HLD (hyperlipidemia) Social History Household Members: Unknown / Unable to assess Housing: Unknown / Unable to assess Do you presently have visiting nurse or other home services: No Patient Tobacco Use Status: Never used Tobacco Tobacco use type: Cigarette e-Cigarette/Vaping Use: Never Used Second Hand Smoke Exposure: Yes Use of substances other than those prescribed or required for medical reasons: No Have you been hit, kicked, punched, or otherwise hurt by someone within the past year? If so, by whom?: No Do you feel safe in your current relationship?: No Current Relationship Is there a partner from a previous relationship who is making you feel unsafe now?: No Are you made to feel afraid or neglected: No Advance Directives: No Advance Directives Information Provided: No Do you have a plan to hurt others: No Plan Recently lost weight without trying: No How much weight loss: Not applicable Eating poorly because of decreased appetite: No Nutrition screen score: 0 Nutrition Risks: No Nutritional Risk Patient : No : No Poor oral hygiene: No service: No Sexual orientation: Straight/Heterosexual Meds Allergies Allergy/AdvReac Type Severity Reaction Status Date / Time No Known Allergies Allergy Verified 12/25/23 17:04 Active Medications: Current Medications Acetaminophen (Acetaminophen 325 Mg Tablet) 650 mg PO Q6H PRN PRN Reason: Pain, Mild 1-3,fever,headache Benzonatate (Benzonatate 100 Mg Capsule) 100 mg PO TID PRN PRN Reason: Cough Calcium Carbonate (Calcium Carbonate 750 Mg Tab.Chew) 750 mg PO Q4H PRN PRN Reason: Heartburn Enoxaparin Sodium (Enoxaparin Sodium 40 Mg/0.4 Ml Syringe) 40 mg SUBCUT Q24H [facility] Magnesium Hydroxide (Milk Of Magnesia 30 Ml Oral.Susp) 30 ml PO DAILY PRN PRN Reason: Constipation Melatonin (Melatonin 3 Mg Tablet) 6 mg PO BEDTIME PRN PRN Reason: Insomnia Ondansetron HCl (Ondansetron Hcl 4 Mg/2 Ml Vial) 4 mg IVPUSH Q8H PRN PRN Reason: Nausea and Vomiting Sodium Chloride (0.9 % Sodium Chloride Flush 3 Ml Syringe) 3 ml IVFLUSH QSHIFT [facility] Home Medications ?Medication ?Instructions ?Recorded ?Confirmed ?Last Taken ?Type cholecalciferol (vitamin D3) 25 25 mcg PO DAILY 12/25/23 01/31/24 01/30/24 History mcg (1,000 unit) capsule (Vitamin D3) fludrocortisone 0.1 mg tablet 0.1 mg PO BID 12/25/23 01/31/24 01/30/24 History prednisone 1 mg tablet 1 mg PO DAILY 12/25/23 01/31/24 01/30/24 History prednisone 5 mg tablet 5 mg PO DAILY 12/25/23 01/31/24 01/30/24 History sennosides 8.6 mg tablet (senna) 17.2 mg PO DAILY 12/25/23 01/31/24 01/28/24 09:00 History Physical Exam Vital Signs and Narrative: Pt yelled and swore at me to leave the room or she would kill me General: alert, NAD Resp: unable to perform, wet cough heard CVS: unable to perform GI: unable to perfrom. holding ashlie bag to face Skin: does not appear diaphoretic or especially pale Neuro:unable to be performed Extremities: No obvious LE edema Psych: agitated, swearing, reporting demons sent me here to do this to her. reports she feels fine and does not have pneumonia. Assessment and Plan (1) Sepsis: Status: Acute (2) Pneumonia: Qualifiers: Pneumonia type: aspiration pneumonia Status: Acute Plan Patient is a 73-year-old female with a past medical history significant for dementia, HLD, schizophrenia, transferred from the Geriatric psych floor due to fever and difficulty breathing. W/u significant for sepsis, viral vs bacterial URI. sepsis secondary to apsiration pneumonia likely due to vomiting - WBC 13.5, tachy, lactic normal, blood cultures x2 pending, not severe sepsis - CXR with mild diffuse interstitial prominence in both lungs, may represent pulmonary vascular congestion/mild pulmonary edema - Chest CT with ll-defined patchy ground-glass and nodular consolidations throughout the right lung worse in the lower lobe. Aspiration or pneumonia not excluded. - UA not yet collected - COVID/flu/RSV negative - respiratory panel pending - BNP pending - VBG with respiratory alkalosis - given 1L LR - elevated procalcitonin - empirically treated for pneumonia with ceftraixone and doxycycline, switched to unasyn once aspiration PNA seen on CT - speech consult - monitor CBC and BMP adrenal insufficiency - stress dose prednisone 15mg QD x3 days then return to baseline dose HLD - continue statin HTN - continue amlodipine when appropriate full code VTE prophy: lovenox Pt transferred from psych floor to medicla floor due to sepsis secondary to aspiration pneumonia, requiring admission for at least 2 midnights stay for IV abx. Quality Stroke Does the patient have a stroke diagnosis?: No VTE Prior VTE?: No VTE Risk Level:: Medical - moderate - high VTE Device Contraindication: Treatment Not Indicated VTE Drug Contraindication: N/A - Med Ordered
[2024-04-10] MEDS: cefTRIAXone sodium 1 GM VIAL IVPUSH (00:50)
[2024-04-10] MEDS: Lactated Ringers 1,000 ML 999 ML IV (00:50)
[2024-04-10] MEDS: predniSONE 5 MG TABLET 15 MG PO (00:50)
[2024-04-10] MEDS: 0.9 % Sodium Chloride Flush 3 ML SYRINGE IVFLUSH ×4 (00:54→21:11)
[2024-04-10 00:56] VITALS: BMI 23.0
[2024-04-10 01:01] VITALS: BP 117/58; PULSE 90; RESP 18; TEMP 36.8; O2SAT 94
[2024-04-10] MEDS: Doxycycline Hyclate 100 MG in 0.9 % Sodium Chloride 250 ML 166.67 MG IV (01:47)
[2024-04-10 02:57] LABS: Appearance Urine Clear; Color Urine Yellow; Glucose Urine UA Negative (Negative); Leukocyte Esterase Urine Small (1+) (Negative); Nitrite Urine Negative (Negative); PH 7.5 (5.0-9.0); UMIC TRIGGER UACC YES; Urine Blood Small (1+) (Negative); Urine Ketones Negative (Negative); Urine Protein Negative (Neg-Trace)
[2024-04-10 03:33] LABS: Bacteria Urine Trace (None Seen); Hyaline Casts Urine 0-2 /LPF (0-2); RBC Urine 0-2 /HPF (0-2); Squamous Epithelial Cell Urine 0-2 /HPF (0-2); UACC Culture Trigger YES; WBC Urine 0-5 /HPF (0-5)
[2024-04-10] MEDS: ondansetron HCL 4 MG/2 ML VIAL IVPUSH (03:39)
[2024-04-10] MEDS: Ampicillin Sodium/Sulbactam Na 3 GM in 0.9 % Sodium Chloride 100 ML IV ×4 (03:40→21:08)
[2024-04-10 04:00] VITALS: BP 138/67; PULSE 90; RESP 16; TEMP 36.4; O2SAT 96
[2024-04-10 07:01] VITALS: BP 106/55; PULSE 73; RESP 18; TEMP 37.8; O2SAT 93
--- NOTE | 2024-04-10 07:23 | PHA.MEDREC ---
Addendum entered by Brandin Heart RPh 04/10/24 07:36: Reviewed by [facility]. Original Note: Pharmacy Consult ? Medication Reconciliation Pharmacy has completed the medication reconciliation. Patient was transferred from the Geriatric psych floor due to fever and difficulty breathing. Utilized discharge packet from 04/09/24 to confirm med list.
[2024-04-10 08:33] LABS: MANUAL DIFF FLAG NO
[2024-04-10 08:36] LABS: Basophils Percent Auto 0.2 % (0-2); Eosinophils Absolute Auto 0.1 X10*3/uL (0.0-0.4); Eosinophils Percent Auto 0.7 % (0-4); Hematocrit 32.1 % (37.0-47.0); Hemoglobin 10.7 g/dl (12.0-16.0); Imm Gran Abs Auto 0.03 X10*3/uL (0.00-0.03); Imm Gran Pct Auto 0.3 % (0.0-0.4); Lymphocytes Absolute Auto 1.1 X10*3/uL (1.2-4.9); Lymphocytes Percent Auto 10.9 % (20-40); Mean Corpuscular HGB Conc 33.3 g/dl (31.0-35.0); Mean Corpuscular Hemoglobin 29.4 pg (27.0-33.0); Mean Corpuscular Volume 88.2 fL (80.0-98.0); Mean Platelet Volume 9.3 fL (9.4-12.3); Monocytes Absolute Auto 0.5 X10*3/uL (0.1-1.2); Monocytes Percent Auto 4.7 % (2-11); Neutrophils Absolute Auto 8.1 x10*3/uL (2.0-8.3); Neutrophils Percent Auto 83.2 % (45-73); Platelet Count 231 X10*3/uL (160-400); Red Blood Count 3.64 X10*6/uL (4.20-5.50); Red Cell Distribution Width 14.9 % (11.0-16.0); White Blood Count 9.7 X10*3/uL (4.8-10.8)
[2024-04-10 08:54] LABS: Anion Gap 12 (12-20); Blood Urea Nitrogen 17 mg/dL (9-16); Calcium 8.7 mg/dL (8.4-10.2); Carbon Dioxide 25 mmol/L (22-29); Chloride 108 mmol/L (96-108); Creatinine Clr Calc Pharmacy 67.5; Estimated Glomerular Filt Rate > 60; Glucose Random 109 mg/dL (60-115); Potassium 3.5 mmol/L (3.3-5.1); Sodium 141 mmol/L (135-145)
[2024-04-10 09:03] LABS: B Type Natriuretic Peptide 30 pg/mL (<100)
[2024-04-10] MEDS: Enoxaparin Sodium 40 MG/0.4 ML SYRINGE SUBCUT (09:46)
--- NOTE | 2024-04-10 09:50 | MHC.SL.SWA ---
Speech Pathologist Impression: Adequate oropharyngeal swallow coordination, question influence of advancing dementia on swallow efficiency d/t impulsivity or reduced self-awareness Risk of Aspiration Due to: History of Pneumonia Reduced Cognition Dysphasia Diet Status: Liquid Consistency and Strategies for Safe Swallow: Liquid Intake Recommendation: Thin Liquid Intake Strategies: Small Sips Solid Food Consistency: Dietary Recommendations: Chopped/Advanced (NDD3) Additional Modifications to Solid Foods: Oral Medication Intake: Whole with Puree Please contact the pharmacy regarding appropriate crushable or liquid drug formulations that are available whenever modified delivery is recommended. Compensatory Strategies and Precautions to be Taken for Safe Swallow: Sitting Upright (90 deg) Small Bites and Sips Alternate Liquids/Solids Rate of Ingestion Change Supervision While Eating and Drinking for Safe Swallow: Intermittent Supervision Foods to Avoid: Swallowing Recommended Treatments: Compens. Strategy Educat. Recommendation for Speech: Inpatient Speech Therapy Comment: Pt presents with adequate oropharyngeal phases of swallow, no overt s/s of aspiration during bedside swallow evaluation. BATCH PLANT OPERATOR will follow closely, anticipate 2x followup in absence of any changes Frequency/Duration: Followup x2 Date Range for Service Req: Timeline to reassess: Spare Hand Clinican/Clinical Fellow: No Supervisory Statement: I have reviewed and agree with the student/clinical fellow's documentation: N/A Speech Language Pathologist: Mai Keen M.S., CCC-BATCH PLANT OPERATOR
--- NOTE | 2024-04-10 10:25 | HO.PM.IMPN ---
Subjective Subjective Date of Service: 04/10/24 Interval History: vomiting Physical Exam Vital Signs: Vital Signs: Last Vital Signs Temp 100.1 F 04/10/24 07:01 Pulse 73 04/10/24 07:01 Resp 18 04/10/24 07:01 BP 106/55 L 04/10/24 07:01 Pulse Ox 93 04/10/24 07:01 O2 Del Method Room Air 04/10/24 07:01 BMI result Body Mass Index 23.0 Alert, no acute distress, oriented x3, lungs clear Objective Data Active Medications Acetaminophen (Acetaminophen 325 Mg Tablet) 650 mg PO Q6H PRN PRN Reason: Pain, Mild 1-3,fever,headache Benzonatate (Benzonatate 100 Mg Capsule) 100 mg PO TID PRN PRN Reason: Cough Calcium Carbonate (Calcium Carbonate 750 Mg Tab.Chew) 750 mg PO Q4H PRN PRN Reason: Heartburn Enoxaparin Sodium (Enoxaparin Sodium 40 Mg/0.4 Ml Syringe) 40 mg SUBCUT Q24H [facility] Last Admin: 04/10/24 09:46 Dose: 40 mg Documented By: HARVEY Ampicillin Sodium/Sulbactam (Sodium 3 gm/ Sodium Chloride) 100 mls @ 200 mls/hr IV Q6H [facility] Last Admin: 04/10/24 09:46 Dose: 200 mls/hr Documented By: HARVEY Magnesium Hydroxide (Milk Of Magnesia 30 Ml Oral.Susp) 30 ml PO DAILY PRN PRN Reason: Constipation Melatonin (Melatonin 3 Mg Tablet) 6 mg PO BEDTIME PRN PRN Reason: Insomnia Ondansetron HCl (Ondansetron Hcl 4 Mg/2 Ml Vial) 4 mg IVPUSH Q8H PRN PRN Reason: Nausea and Vomiting Last Admin: 04/10/24 03:39 Dose: 4 mg Documented By: LOREE Prednisone (Prednisone 5 Mg Tablet) 15 mg PO DAILY [facility] Last Admin: 04/10/24 00:50 Dose: 15 mg Documented By: LOREE Sodium Chloride (0.9 % Sodium Chloride Flush 3 Ml Syringe) 3 ml IVFLUSH QSHIFT [facility] Last Admin: 04/10/24 09:47 Dose: 3 ml Documented By: HARVEY Labs 04/10/24 07:59 04/10/24 07:59 Labs: Laboratory Results - last 24 hr 02/12/25 02/12/25 02:48 07:59 MCV 88.2 MCH 29.4 MCHC 33.3 RDW 14.9 Plt Count 231 MPV 9.3 L Immature Gran % (Auto) 0.3 Neut % (Auto) 83.2 H Lymph % (Auto) 10.9 L [place] % (Auto) 4.7 Eos % (Auto) 0.7 Baso % (Auto) 0.2 Lymph # (Auto) 1.1 L [place] # (Auto) 0.5 Eos # (Auto) 0.1 Baso # (Auto) 0.0 Abs Immat Gran (auto) 0.03 Absolute Neuts (auto) 8.1 Absolute Nucleated RBC 0.000 Nucleated RBC % (auto) 0.0 Anion Gap 12 Estim Creat Clear Calc 67.5 Estimated GFR > 60 Random Glucose 109 Calcium 8.7 B-Natriuretic Peptide 30 Urine Color Yellow Urine Appearance Clear Urine pH 7.5 Ur Specific [place] 1.010 Urine Protein Negative Urine Glucose (UA) Negative Urine Ketones Negative Urine Blood Small (1+) H Urine Nitrite Negative Ur Leukocyte Esterase Small (1+) H Urine RBC 0-2 Urine WBC 0-5 Ur Squamous Epith Cells 0-2 Urine Bacteria Trace Hyaline Casts 0-2 Assessment and Plan (1) Schizophrenia: Status: Acute Plan 73F PMH unspecified dementia, hyperlipidemia, schizophrenia sent from Geriatric Psychiatry for fever and shortness of breath Sepsis due to aspiration pneumonia due to vomiting Continue IV Unasyn, CHIEF LIBRARIAN [employer]ANCH OR DEPARTMENT appreciated put on NDD3 solids and thin liquids Follow up respiratory viral panel Adrenal insufficiency Continue prednisone 50 mg daily for 2 more days then back to baseline Florinef Hyperlipidemia Continue statin Hypertension Holding amlodipine for low normal blood pressures Schizophrenia [facility] psych eval prior to discharge DVT prophylaxis with Lovenox Full code reason for continued hospitalization:awaiting defervesence Quality Stroke Does the patient have a stroke diagnosis?: No VTE Prior VTE?: No VTE Risk Level:: Medical - moderate - high VTE Device Contraindication: Treatment Not Indicated VTE Drug Contraindication: N/A - Med Ordered
[2024-04-10 14:43] LABS: CDiff Gene PCR NEGATIVE (Negative)
[2024-04-10 15:22] VITALS: BP 138/65; PULSE 85; RESP 20; TEMP 36.9; O2SAT 94
--- NOTE | 2024-04-10 15:24 | MHC.CM.PN ---
IMM 04/10/24 Patient transferred from [facility] DX Aspiration PNA. Patient states that she is independent with ADLs. She states that she does not use an AD. He guardian is Nikki Marcum. A message has been received from [facility] staff member, Yris Hollingsworth. She stated that the patient requires LTC. [facility] and [facility] are both following. A clinical update has been sent to the facilities. CM will follow for placement.
[2024-04-10 16:25] LABS: Adenovirus F 40/41 Not Detected (Not Detect.); Astrovirus Not Detected (Not Detect.); Campylobacter Not Detected (Not Detect.); Cryptosporidium Not Detected (Not Detect.); Cyclospora cayetanensis Not Detected (Not Detect.); E. coli EAEC Not Detected (Not Detect.); E. coli EPEC Not Detected (Not Detect.); E. coli ETEC Not Detected (Not Detect.); E. coli STEC Not Detected (Not Detect.); Entamoeba histolytica Not Detected (Not Detect.); Giardia lamblia Not Detected (Not Detect.); Norovirus GI/GII Detected (Not Detect.); Plesiomonas shigelloides Not Detected (Not Detect.); Rotavirus A Not Detected (Not Detect.); Salmonella Not Detected (Not Detect.); Sapovirus Not Detected (Not Detect.); Shigella sp./EIEC Not Detected (Not Detect.); Vibrio Not Detected (Not Detect.); Vibrio Cholerae Not Detected (Not Detect.); Yersinia enterocolitica Not Detected (Not Detect.)
[2024-04-10] MEDS: Fludrocortisone Acetate 0.1 MG TABLET PO (21:05)
--- NOTE | 2024-04-10 22:00 | PM.PSYDC ---
DS: Providers Provider Date of Service: 04/09/24 <Jacinto Lowe MD - Last Filed: 04/12/24 08:07> Date of discharge: 04/09/24 <Jacinto Lowe MD - Last Filed: 04/12/24 08:07> Primary care physician: Unknown Physician <Blaine Butterfield MD - Last Filed: 04/15/24 21:28> Discharging clinician: Blaine Butterfield <Blaine Butterfield MD - Last Filed: 04/15/24 21:28> DS: Diagnosis Discharge Diagnosis (1) Schizophrenia: Status: Acute <Blaine Butterfield MD - Last Filed: 04/15/24 21:28> DS: Medications Discharge Medications Home Medications: Home Medications ?Medication ?Instructions ?Recorded ?Confirmed cholecalciferol (vitamin D3) 25 25 mcg PO DAILY 12/25/23 04/10/24 mcg (1,000 unit) capsule (Vitamin D3) fludrocortisone 0.1 mg tablet 0.1 mg PO BID 12/25/23 04/10/24 prednisone 1 mg tablet 1 mg PO DAILY 12/25/23 04/10/24 prednisone 5 mg tablet 5 mg PO DAILY 12/25/23 04/10/24 sennosides 8.6 mg tablet (senna) 17.2 mg PO DAILY 12/25/23 04/10/24 Previous Rx's ?Medication ?Instructions ?Recorded amlodipine 5 mg tablet 5 mg PO DAILY #1 tab 01/28/24 atorvastatin 20 mg tablet 20 mg PO DAILY #1 tab 01/28/24 <Blaine Butterfield MD - Last Filed: 04/15/24 21:28> Mental Status Exam Mental Status Exam Patient Appearance: Unkempt <Jacinto Lowe MD - Last Filed: 04/12/24 08:07> Patient Orientation: Person <Jacinto Lowe MD - Last Filed: 04/12/24 08:07> Level of Consciousness: Obtunded <Jacinto Lowe MD - Last Filed: 04/12/24 08:07> Patient Behavior: Suspicious <Jacinto Lowe MD - Last Filed: 04/12/24 08:07> Mood Description: Withdrawn <Jacinto Lowe MD - Last Filed: 04/12/24 08:07> Affect Description: Blunted <Jacinto Lowe MD - Last Filed: 04/12/24 08:07> Patient Cognition Impaired: Yes <Jacinto Lowe MD - Last Filed: 04/12/24 08:07> Ability to Follow Directions: Fair <Jacinto Lowe MD - Last Filed: 04/12/24 08:07> Hallucinations: None <Jacinto Lowe MD - Last Filed: 04/12/24 08:07> Delusions: Paranoid Ideation <Jacinto Lowe MD - Last Filed: 04/12/24 08:07> Thought Process: Illogical <Jacinto Lowe MD - Last Filed: 04/12/24 08:07> Thought Content: positive for Circumstantial <Jacinto Lowe MD - Last Filed: 04/12/24 08:07> Judgement: Poor <Jacinto Lowe MD - Last Filed: 04/12/24 08:07> Data Data Completed and Pending Completed studies during hospitalization [Text1]: 04/10/24 04/10/24 04/10/24 02:48 07:59 13:10 WBC 9.7 RBC 3.64 L Hgb 10.7 L Hct 32.1 L MCV 88.2 MCH 29.4 MCHC 33.3 RDW 14.9 Plt Count 231 MPV 9.3 L Immature Gran % (Auto) 0.3 Neut % (Auto) 83.2 H Lymph % (Auto) 10.9 L [place] % (Auto) 4.7 Eos % (Auto) 0.7 Baso % (Auto) 0.2 Lymph # (Auto) 1.1 L [place] # (Auto) 0.5 Eos # (Auto) 0.1 Baso # (Auto) 0.0 Abs Immat Gran (auto) 0.03 Absolute Neuts (auto) 8.1 Absolute Nucleated RBC 0.000 Nucleated RBC % (auto) 0.0 Sodium 141 Potassium 3.5 Chloride 108 Carbon Dioxide 25 Anion Gap 12 BUN 17 H Creatinine 0.65 Estim Creat Clear Calc 67.5 Estimated GFR > 60 Random Glucose 109 Calcium 8.7 B-Natriuretic Peptide 30 Urine Color Yellow Urine Appearance Clear Urine pH 7.5 Ur Specific [place] 1.010 Urine Protein Negative Urine Glucose (UA) Negative Urine Ketones Negative Urine Blood Small (1+) H Urine Nitrite Negative Ur Leukocyte Esterase Small (1+) H Urine RBC 0-2 Urine WBC 0-5 Ur Squamous Epith Cells 0-2 Urine Bacteria Trace Hyaline Casts 0-2 Stl C. cayetanensis PCR Not Detected Stool Rotavirus A PCR Not Detected Stl Adenov F 40/41 PCR Not Detected Stool Astrovirus (PCR) Not Detected Stool Campylobacter PCR Not Detected Stool Cryptosporidium PCR Not Detected Stl Sh Tox Pr E STEC PCR Not Detected Stool E coli O157 PCR Not applicable Stl Enterotoxigenic E PCR Not Detected Stool EPEC (PCR) Not Detected Stool EAEC (PCR) Not Detected Stl E. histolytica PCR Not Detected Stool Giardia Lamblia PCR Not Detected Stl P. shigelloides PCR Not Detected Stool Salmonella PCR Not Detected Stool Sapovirus (PCR) Not Detected Stl Shigella/EIEC PCR Not Detected St Y.enterocolitica PCR Not Detected Stool Vibrio (PCR) Not Detected Stl Vibrio cholerae PCR Not Detected Stl Norovirus GI/GII PCR Detected A C. difficile Tox B Gene NEGATIVE 04/10/24 Unknown Urine clean catch - Clean Catch Midstream Urine Culture - Pending <Blaine Butterfield MD - Last Filed: 04/15/24 21:28> DS: Summary Hospital Course Hospital Course: from initial hpi: 73-year-old female with a past medical history significant for dementia, HLD, schizophrenia, transferred from the Geriatric psych floor due to fever and difficulty breathing. highest mesaured temp of 102.2. unable to obtain any history from the pt due to mental status. she refused exam and states that she feels fine and is not having any trouble breathing and the demons are making me do this to her . she demanded I leave the room. her nurse reported hospital course: Patient was admitted for sepsis due to aspiration pneumonia due to vomiting from norovirus. Was treated with IV Unasyn and will be discharged on 5 more days of Augmentin. Was seen by speech who recommended NDD3 solids and thin liquids. Had respiratory viral panel which was negative. Sepsis resolved and patient's fevers resolved. Patient feels back to baseline. For adrenal insufficiency received stress dosing and is now back on baseline prednisone and Florinef. For hyperlipidemia was continued on statin. For hypertension amlodipine has been held for low normal blood pressures. For schizophrenia continues to have chronic delusions does not require inpatient psychiatry anymore we will continue to follow in community. <Blaine Butterfield MD - Last Filed: 04/15/24 21:28> Time spent discussing smoking cessation with patient: 3 to 10 minutes <Jacinto Lowe MD - Last Filed: 04/12/24 08:07> Status at Discharge Functional status at discharge: independent ambulation <Jacinto Lowe MD - Last Filed: 04/12/24 08:07> Overall status at discharge: patient is not back to baseline <Jacinto Lowe MD - Last Filed: 04/12/24 08:07> Time Spent with Patient Time attestation: Total time managing care of this patient today ____ minutes. <Blaine Butterfield MD - Last Filed: 04/15/24 21:28> Total time managing care of this patient today __30__ minutes. <Jacinto Lowe MD - Last Filed: 04/12/24 08:07> Time spent: Less than 30 minutes <Jacinto Lowe MD - Last Filed: 04/12/24 08:07> Discharge Plan Discharge Anticipated Discharge Date/Time: 04/10/24 23:03 <Blaine Butterfield MD - Last Filed: 04/15/24 21:28> Patient Disposition: Xfer Other <Blaien Butterfield MD - Last Filed: 04/15/24 21:28> Discharge Diagnosis: Schizophrenia Sepsis Pneumonia <Blaine Butterfield MD - Last Filed: 04/15/24 21:28> Schizophrenia Sepsis Pneumonia <Jacinto Lowe MD - Last Filed: 04/12/24 08:07> Referrals: Peterson Castillo [place] [Outside] - 1 Week Physician,Unknown J [Primary Care Provider] - 1 Week <Blaine Butterfield MD - Last Filed: 04/15/24 21:28> Discharge Medications: New atorvastatin 20 mg Tablet 20 mg PO DAILY 30 Days Qty: 30 0RF sodium chloride 0.9 % (flush) [BD PosiFlush Normal Saline 0.9] Syringe 3 ml IVFLUSH QSHIFT Qty: 1000 0RF prednisone 5 mg Tablet 15 mg PO DAILY 30 Days Qty: 90 0RF melatonin 3 mg Tablet 6 mg PO BEDTIME PRN (Reason: Insomnia) 30 Days Qty: 30 0RF benzonatate 100 mg Capsule 100 mg PO TID PRN (Reason: Cough) 30 Days Qty: 30 0RF fludrocortisone 0.1 mg Tablet 0.1 mg PO BID 30 Days Qty: 60 0RF cholecalciferol (vitamin D3) 25 mcg (1,000 unit) Tablet 25 mcg PO DAILY 30 Days Qty: 30 0RF amoxicillin-pot clavulanate 875-125 mg tablet 1 tab PO BID Qty: 10 0RF Discontinued sennosides [senna] 8.6 mg tablet 17.2 mg PO DAILY Patient Comments: last filled 12/21/23 prednisone 5 mg tablet 5 mg PO DAILY Patient Comments: last [id number]/24/24 prednisone 1 mg tablet 1 mg PO DAILY Patient Comments: last mqaynq23/24/24 fludrocortisone 0.1 mg tablet 0.1 mg PO BID cholecalciferol (vitamin D3) [Vitamin D3] 25 mcg (1,000 unit) capsule 25 mcg PO DAILY Patient Comments: Last filled 12/21/23 atorvastatin 20 mg Tablet 20 mg PO DAILY Qty: 1 0RF amlodipine 5 mg Tablet 5 mg PO DAILY Qty: 1 0RF Protocol: Hold for SBP< HOLD for SBP < : 90 <Blaine Butterfield MD - Last Filed: 04/15/24 21:28> Discharge Orders: Discharge Order (Routine); Ordered 04/12/24 Ordered By: Erasmo River <Blaine Butterfield MD - Last Filed: 04/15/24 21:28> Diet: ndd3 solids, thin liquids <Blaine Butterfield MD - Last Filed: 04/15/24 21:28> ndd3 solids, thin liquids <Jacinto Lowe MD - Last Filed: 04/12/24 08:07> Activity on Discharge: As tolerated <Blaine Butterfield MD - Last Filed: 04/15/24 21:28> As tolerated <Jacinto Lowe MD - Last Filed: 04/12/24 08:07> Stand Alone Forms: Patient Portal Discharge page <Blaine Butterfield MD - Last Filed: 04/15/24 21:28> Print Language: Vietnamese <Blaine Butterfield MD - Last Filed: 04/15/24 21:28> Care Plan Goals: Recovery <Blaine Butterfield MD - Last Filed: 04/15/24 21:28> Health Concerns: Pneumonia, norovirus <Blaine Butterfield MD - Last Filed: 04/15/24 21:28> Plan of Treatment: 5 more days of Augmentin <Blaine Butterfield MD - Last Filed: 04/15/24 21:28> Assessment: See above <Blaine Butterfield MD - Last Filed: 04/15/24 21:28> Discharge Date/Time: 04/12/24 14:15 <Blaine Butterfield MD - Last Filed: 04/15/24 21:28>
[2024-04-10 23:53] VITALS: BP 165/71; PULSE 100; RESP 18; TEMP 38.3; O2SAT 95
[2024-04-10] MEDS: Acetaminophen 325 MG TABLET 650 MG PO (23:59)
[2024-04-11] MEDS: Ampicillin Sodium/Sulbactam Na 3 GM in 0.9 % Sodium Chloride 100 ML IV ×4 (03:44→20:30)
[2024-04-11 03:48] VITALS: TEMP 37.6
[2024-04-11 06:27] LABS: Hemoglobin 11.7 g/dl (12.0-16.0); Mean Corpuscular HGB Conc 33.4 g/dl (31.0-35.0); Mean Corpuscular Hemoglobin 28.8 pg (27.0-33.0); Mean Corpuscular Volume 86.2 fL (80.0-98.0); Mean Platelet Volume 8.8 fL (9.4-12.3); Platelet Count 240 X10*3/uL (160-400); Red Blood Count 4.06 X10*6/uL (4.20-5.50); Red Cell Distribution Width 14.9 % (11.0-16.0); White Blood Count 4.9 X10*3/uL (4.8-10.8)
[2024-04-11 06:42] LABS: Anion Gap 15 (12-20); Blood Urea Nitrogen 10 mg/dL (9-16); Calcium 8.7 mg/dL (8.4-10.2); Carbon Dioxide 21 mmol/L (22-29); Chloride 107 mmol/L (96-108); Creatinine Clr Calc Pharmacy 68.6; Estimated Glomerular Filt Rate > 60; Glucose Random 88 mg/dL (60-115); Sodium 140 mmol/L (135-145)
[2024-04-11 07:36] VITALS: BP 95/50; PULSE 77; RESP 18; TEMP 37.4; O2SAT 94
[2024-04-11] MEDS: Enoxaparin Sodium 40 MG/0.4 ML SYRINGE SUBCUT (07:49)
[2024-04-11] MEDS: predniSONE 5 MG TABLET 15 MG PO (07:50)
[2024-04-11] MEDS: Cholecalciferol (Vitamin D3) 25 MCG TABLET PO (07:50)
[2024-04-11] MEDS: Atorvastatin Calcium 20 MG TABLET PO (07:50)
[2024-04-11] MEDS: Fludrocortisone Acetate 0.1 MG TABLET PO ×2 (07:53→20:26)
[2024-04-11] MEDS: 0.9 % Sodium Chloride Flush 3 ML SYRINGE IVFLUSH ×3 (07:54→20:30)
[2024-04-11 08:03] VITALS: BP 117/66
--- NOTE | 2024-04-11 08:38 | HO.PM.IMPN ---
Subjective Subjective Date of Service: 04/11/24 Interval History: fever Physical Exam Vital Signs: Vital Signs: Last Vital Signs Temp 99.4 F 04/11/24 07:36 Pulse 77 04/11/24 07:36 Resp 18 04/11/24 07:36 BP 117/66 04/11/24 08:03 Pulse Ox 94 04/11/24 07:36 O2 Del Method Room Air 04/11/24 07:36 BMI result Body Mass Index 23.0 Alert, no acute distress, oriented x3, lungs clear Objective Data Active Medications Acetaminophen (Acetaminophen 325 Mg Tablet) 650 mg PO Q6H PRN PRN Reason: Pain, Mild 1-3,fever,headache Last Admin: 04/10/24 23:59 Dose: 650 mg Documented By: VICTORIA Atorvastatin Calcium (Atorvastatin Calcium 20 Mg Tablet) 20 mg PO DAILY [facility] Last Admin: 04/11/24 07:50 Dose: 20 mg Documented By: PATRICIA Benzonatate (Benzonatate 100 Mg Capsule) 100 mg PO TID PRN PRN Reason: Cough Calcium Carbonate (Calcium Carbonate 750 Mg Tab.Chew) 750 mg PO Q4H PRN PRN Reason: Heartburn Enoxaparin Sodium (Enoxaparin Sodium 40 Mg/0.4 Ml Syringe) 40 mg SUBCUT Q24H [facility] Last Admin: 04/11/24 07:49 Dose: 40 mg Documented By: PATRICIA Fludrocortisone Acetate (Fludrocortisone Acetate 0.1 Mg Tablet) 0.1 mg PO BID [facility] Last Admin: 04/11/24 07:53 Dose: 0.1 mg Documented By: PATRICIA Ampicillin Sodium/Sulbactam (Sodium 3 gm/ Sodium Chloride) 100 mls @ 200 mls/hr IV Q6H [facility] Last Infusion: 04/11/24 04:15 Dose: Infused Documented By: VICTORIA Magnesium Hydroxide (Milk Of Magnesia 30 Ml Oral.Susp) 30 ml PO DAILY PRN PRN Reason: Constipation Melatonin (Melatonin 3 Mg Tablet) 6 mg PO BEDTIME PRN PRN Reason: Insomnia Ondansetron HCl (Ondansetron Hcl 4 Mg/2 Ml Vial) 4 mg IVPUSH Q8H PRN PRN Reason: Nausea and Vomiting Last Admin: 04/10/24 03:39 Dose: 4 mg Documented By: LOREE Prednisone (Prednisone 5 Mg Tablet) 15 mg PO DAILY [facility] Last Admin: 04/11/24 07:50 Dose: 15 mg Documented By: PATRICIA Senna (Sennosides 8.6 Mg Tablet) 17.2 mg PO DAILY [facility] Last Admin: 04/11/24 07:56 Dose: Not Given Documented By: PATRICIA Non-Admin Reason: Patient Refused Sodium Chloride (0.9 % Sodium Chloride Flush 3 Ml Syringe) 3 ml IVFLUSH QSHIFT [facility] Last Admin: 04/11/24 07:54 Dose: 3 ml Documented By: PATRICIA Vitamin D (Cholecalciferol (Vitamin D3) 25 Mcg Tablet) 25 mcg PO DAILY [facility] Last Admin: 04/11/24 07:50 Dose: 25 mcg Documented By: PATRICIA Labs 04/11/24 06:08 04/11/24 06:08 Labs: Laboratory Results - last 24 hr 04/10/24 04/10/24 04/11/24 07:59 13:10 06:08 MCV 86.2 MCH 28.8 MCHC 33.4 RDW 14.9 Plt Count 240 MPV 8.8 L Absolute Nucleated RBC 0.000 Nucleated RBC % (auto) 0.0 Anion Gap 12 15 Estim Creat Clear Calc 67.5 68.6 Estimated GFR > 60 > 60 Random Glucose 109 88 Calcium 8.7 8.7 B-Natriuretic Peptide 30 Stl C. cayetanensis PCR Not Detected Stool Rotavirus A PCR Not Detected Stl Adenov F 40/41 PCR Not Detected Stool Astrovirus (PCR) Not Detected Stool Campylobacter PCR Not Detected Stool Cryptosporidium PCR Not Detected Stl Sh Tox Pr E STEC PCR Not Detected Stool E coli O157 PCR Not applicable Stl Enterotoxigenic E PCR Not Detected Stool EPEC (PCR) Not Detected Stool EAEC (PCR) Not Detected Stl E. histolytica PCR Not Detected Stool Giardia Lamblia PCR Not Detected Stl P. shigelloides PCR Not Detected Stool Salmonella PCR Not Detected Stool Sapovirus (PCR) Not Detected Stl Shigella/EIEC PCR Not Detected St Y.enterocolitica PCR Not Detected Stool Vibrio (PCR) Not Detected Stl Vibrio cholerae PCR Not Detected Stl Norovirus GI/GII PCR Detected A C. difficile Tox B Gene NEGATIVE Assessment and Plan (1) Schizophrenia: Status: Acute Plan 73F PMH unspecified dementia, hyperlipidemia, schizophrenia sent from Geriatric Psychiatry for fever and shortness of breath Sepsis due to aspiration pneumonia due to vomiting froom norovirus Continue IV Unasyn, [employer] appreciated put on NDD3 solids and thin liquids negative resp viral panel Adrenal insufficiency Continue prednisone 50 mg daily for 1 more day then back to baseline Florinef Hyperlipidemia Continue statin Hypertension Holding amlodipine for low normal blood pressures Schizophrenia per geripsych stable, unlikely to need geripsych impatient once medically cleared DVT prophylaxis with Lovenox Full code reason for continued hospitalization:awaiting defervesence Quality Stroke Does the patient have a stroke diagnosis?: No VTE Prior VTE?: No VTE Risk Level:: Medical - moderate - high VTE Device Contraindication: Treatment Not Indicated VTE Drug Contraindication: N/A - Med Ordered
--- NOTE | 2024-04-11 10:43 | MHC.CM.PN ---
Addendum entered by Lora Tobias 04/11/24 12:24: [facility] [place] [facility] IS OFFERING A BED Original Note: CM RECEIVED A CALL FROM PTS GUARDIAN, LARRY BUSCH, WHO REPORTS SHE WOULD PREFER PT GO TO [facility] [place]. SHE WAS INFORMED REFERRALS ARE IN BUT RESPONSES NOT YET RECIEVED SHE WILL EMAIL PTS DECREE TODAY
--- NOTE | 2024-04-11 14:35 | MHC.SLORD ---
Speech Language Pathology Order Status: Attempted to see patient at lunch, patient refusing meal today. BOOK CLEANER will continue to follow.
[2024-04-11 15:15] VITALS: BP 103/54; PULSE 65; RESP 20; TEMP 36.9; O2SAT 94
--- NOTE | 2024-04-11 16:18 | PC.NURSE ---
MD River made aware pt has had poor PO intake this shift, different food options offered to patient unsuccessfully. Patient refusing to get out of bed into chair, has ambulated to with 1A. All safety measures in place, no new orders at this time.
[2024-04-11 19:29] VITALS: BP 104/53; PULSE 67; RESP 18; TEMP 36.6; O2SAT 93
[2024-04-12 03:48] VITALS: BP 127/71; PULSE 63; RESP 18; TEMP 36.1; O2SAT 94
[2024-04-12] MEDS: Ampicillin Sodium/Sulbactam Na 3 GM in 0.9 % Sodium Chloride 100 ML IV ×2 (05:21→10:58)
[2024-04-12] MEDS: Atorvastatin Calcium 20 MG TABLET PO (07:06)
[2024-04-12] MEDS: Cholecalciferol (Vitamin D3) 25 MCG TABLET PO (07:06)
[2024-04-12] MEDS: Fludrocortisone Acetate 0.1 MG TABLET PO (07:06)
[2024-04-12] MEDS: Enoxaparin Sodium 40 MG/0.4 ML SYRINGE SUBCUT (07:06)
[2024-04-12] MEDS: predniSONE 5 MG TABLET 15 MG PO (07:06)
[2024-04-12] MEDS: 0.9 % Sodium Chloride Flush 3 ML SYRINGE IVFLUSH (07:07)
[2024-04-12 07:36] VITALS: BP 101/65; PULSE 53; RESP 14; TEMP 36.3; O2SAT 93
--- NOTE | 2024-04-12 08:46 | HO.PM.IMPN ---
Subjective Subjective Date of Service: 04/12/24 Interval History: no complaints Physical Exam Vital Signs: Vital Signs: Last Vital Signs Temp 97.3 F 04/12/24 07:36 Pulse 53 04/12/24 07:36 Resp 14 04/12/24 07:36 BP 101/65 04/12/24 07:36 Pulse Ox 93 04/12/24 07:36 O2 Del Method Room Air 04/12/24 07:36 BMI result Body Mass Index 23.0 Alert, no acute distress, oriented x3, lungs clear Objective Data Active Medications Acetaminophen (Acetaminophen 325 Mg Tablet) 650 mg PO Q6H PRN PRN Reason: Pain, Mild 1-3,fever,headache Last Admin: 04/10/24 23:59 Dose: 650 mg Documented By: VICTORIA Atorvastatin Calcium (Atorvastatin Calcium 20 Mg Tablet) 20 mg PO DAILY [facility] Last Admin: 04/12/24 07:06 Dose: 20 mg Documented By: PATRICIA Benzonatate (Benzonatate 100 Mg Capsule) 100 mg PO TID PRN PRN Reason: Cough Calcium Carbonate (Calcium Carbonate 750 Mg Tab.Chew) 750 mg PO Q4H PRN PRN Reason: Heartburn Enoxaparin Sodium (Enoxaparin Sodium 40 Mg/0.4 Ml Syringe) 40 mg SUBCUT Q24H [facility] Last Admin: 04/12/24 07:06 Dose: 40 mg Documented By: PATRICIA Fludrocortisone Acetate (Fludrocortisone Acetate 0.1 Mg Tablet) 0.1 mg PO BID [facility] Last Admin: 04/12/24 07:06 Dose: 0.1 mg Documented By: PATRICIA Ampicillin Sodium/Sulbactam (Sodium 3 gm/ Sodium Chloride) 100 mls @ 200 mls/hr IV Q6H [facility] Last Infusion: 04/12/24 06:04 Dose: Infused Documented By: VICTORIA Magnesium Hydroxide (Milk Of Magnesia 30 Ml Oral.Susp) 30 ml PO DAILY PRN PRN Reason: Constipation Melatonin (Melatonin 3 Mg Tablet) 6 mg PO BEDTIME PRN PRN Reason: Insomnia Ondansetron HCl (Ondansetron Hcl 4 Mg/2 Ml Vial) 4 mg IVPUSH Q8H PRN PRN Reason: Nausea and Vomiting Last Admin: 04/10/24 03:39 Dose: 4 mg Documented By: LOREE Prednisone (Prednisone 5 Mg Tablet) 15 mg PO DAILY [facility] Last Admin: 04/12/24 07:06 Dose: 15 mg Documented By: PATRICIA Senna (Sennosides 8.6 Mg Tablet) 17.2 mg PO DAILY [facility] Last Admin: 04/12/24 07:10 Dose: Not Given Documented By: PATRICIA Non-Admin Reason: Patient Refused Sodium Chloride (0.9 % Sodium Chloride Flush 3 Ml Syringe) 3 ml IVFLUSH QSHIFT [facility] Last Admin: 04/12/24 07:07 Dose: 3 ml Documented By: PATRICIA Vitamin D (Cholecalciferol (Vitamin D3) 25 Mcg Tablet) 25 mcg PO DAILY [facility] Last Admin: 04/12/24 07:06 Dose: 25 mcg Documented By: PATRICIA Labs 04/11/24 06:08 04/11/24 06:08 Microbiology Microbiology Results: Microbiology 04/10/24 Unknown Urine Culture - Final Urine clean catch - Clean Catch Midstream Assessment and Plan (1) Schizophrenia: Status: Acute Plan 73F PMH unspecified dementia, hyperlipidemia, schizophrenia sent from Geriatric Psychiatry for fever and shortness of breath Sepsis due to aspiration pneumonia due to vomiting froom norovirus Continue IV Unasyn, [employer] appreciated put on NDD3 solids and thin liquids negative resp viral panel sepsis resolved, no further fevers Adrenal insufficiency s/p stress dosing, back to baseline prednisone Florinef Hyperlipidemia Continue statin Hypertension Holding amlodipine for low normal blood pressures Schizophrenia medically cleared, care team eval DVT prophylaxis with Lovenox Full code reason for continued hospitalization:care team eval Quality Stroke Does the patient have a stroke diagnosis?: No VTE Prior VTE?: No VTE Risk Level:: Medical - moderate - high VTE Device Contraindication: Treatment Not Indicated VTE Drug Contraindication: N/A - Med Ordered
--- NOTE | 2024-04-12 11:42 | PM.DS ---
DS: Providers Provider Date of Service: 04/12/24 Date of admission: 04/09/24 23:58 Date of discharge: 04/12/24 Primary care physician: Unknown Physician DS: Diagnosis Discharge Diagnosis (1) Schizophrenia: Status: Acute DS: Summary Hospital Course Hospital Course: from initial hpi: 73-year-old female with a past medical history significant for dementia, HLD, schizophrenia, transferred from the Geriatric psych floor due to fever and difficulty breathing. highest mesaured temp of 102.2. unable to obtain any history from the pt due to mental status. she refused exam and states that she feels fine and is not having any trouble breathing and the demons are making me do this to her . she demanded I leave the room. her nurse reported hospital course: Patient was admitted for sepsis due to aspiration pneumonia due to vomiting from norovirus. Was treated with IV Unasyn and will be discharged on 5 more days of Augmentin. Was seen by speech who recommended NDD3 solids and thin liquids. Had respiratory viral panel which was negative. Sepsis resolved and patient's fevers resolved. Patient feels back to baseline. For adrenal insufficiency received stress dosing and is now back on baseline prednisone and Florinef. For hyperlipidemia was continued on statin. For hypertension amlodipine has been held for low normal blood pressures. For schizophrenia continues to have chronic delusions does not require inpatient psychiatry anymore we will continue to follow in community. Time Attestation Discharge Coordination Time (in mins): 37 Quality: Safe Use of Opioids Does Pt have an Active Cancer Diagnosis on the Problem List?: No Quality: Stroke Does the patient have a stroke diagnosis?: No Physical Exam Vital Signs: Vital Signs: Last Vital Signs Temp 97.3 F 04/12/24 07:36 Pulse 53 04/12/24 07:36 Resp 14 04/12/24 07:36 BP 101/65 04/12/24 07:36 Pulse Ox 93 04/12/24 07:36 O2 Del Method Room Air 04/12/24 07:36 BMI result Body Mass Index 23.0 Alert, no acute distress, oriented x3, lungs clear Discharge Plan Discharge Anticipated Discharge Date/Time: 04/10/24 23:03 Patient Disposition: Xfer Other Discharge Diagnosis: Schizophrenia Sepsis Pneumonia Referrals: [facility]illo [facility] [Outside] - 1 Week Physician,Unknown J [Primary Care Provider] - 1 Week Discharge Medications: New atorvastatin 20 mg Tablet 20 mg PO DAILY 30 Days Qty: 30 0RF sodium chloride 0.9 % (flush) [BD PosiFlush Normal Saline 0.9] Syringe 3 ml IVFLUSH QSHIFT Qty: 1000 0RF prednisone 5 mg Tablet 15 mg PO DAILY 30 Days Qty: 90 0RF melatonin 3 mg Tablet 6 mg PO BEDTIME PRN (Reason: Insomnia) 30 Days Qty: 30 0RF benzonatate 100 mg Capsule 100 mg PO TID PRN (Reason: Cough) 30 Days Qty: 30 0RF fludrocortisone 0.1 mg Tablet 0.1 mg PO BID 30 Days Qty: 60 0RF cholecalciferol (vitamin D3) 25 mcg (1,000 unit) Tablet 25 mcg PO DAILY 30 Days Qty: 30 0RF amoxicillin-pot clavulanate 875-125 mg tablet 1 tab PO BID Qty: 10 0RF Discontinued sennosides [senna] 8.6 mg tablet 17.2 mg PO DAILY Patient Comments: last filled 12/21/23 prednisone 5 mg tablet 5 mg PO DAILY Patient Comments: last /24/24 prednisone 1 mg tablet 1 mg PO DAILY Patient Comments: last amtzut39/24/24 fludrocortisone 0.1 mg tablet 0.1 mg PO BID cholecalciferol (vitamin D3) [Vitamin D3] 25 mcg (1,000 unit) capsule 25 mcg PO DAILY Patient Comments: Last filled 12/21/23 atorvastatin 20 mg Tablet 20 mg PO DAILY Qty: 1 0RF amlodipine 5 mg Tablet 5 mg PO DAILY Qty: 1 0RF Protocol: Hold for SBP< HOLD for SBP < : 90 Discharge Orders: Discharge Order (Routine); Ordered 04/12/24 Ordered By: Erasmo River Diet: ndd3 solids, thin liquids Activity on Discharge: As tolerated Stand Alone Forms: Patient Portal Discharge page Print Language: Portuguese Care Plan Goals: Recovery Health Concerns: Pneumonia, norovirus Plan of Treatment: 5 more days of Augmentin Assessment: See above
--- NOTE | 2024-04-12 11:52 | MHC.CARE ---
Pt does not meet [facility]PL[facility] and will remain on the medical floor with assistance from SW to find a shelter placement. Provider in agreement.
--- NOTE | 2024-04-12 12:06 | MHC.CM.PN ---
Pt is medically cleared and has been accepted at [facility], pt will transport there via BLS today. Pts guardian Nikki Jossue ([phone]) has been notified and is in agreement with discharge plan.
[2024-04-12 14:07] VITALS: BP 104/51; PULSE 63; RESP 16; TEMP 36.3; O2SAT 95
--- NOTE | 2024-04-25 11:54 | PM.DS ---
DS: Providers Provider Date of Service: 04/12/24 Date of admission: 04/09/24 23:58 Date of discharge: 04/12/24 Primary care physician: Unknown Physician DS: Diagnosis Discharge Diagnosis (1) Schizophrenia: Status: Acute DS: Summary Hospital Course Hospital Course: from initial hpi: 73-year-old female with a past medical history significant for dementia, HLD, schizophrenia, transferred from the Geriatric psych floor due to fever and difficulty breathing. highest mesaured temp of 102.2. unable to obtain any history from the pt due to mental status. she refused exam and states that she feels fine and is not having any trouble breathing and the demons are making me do this to her . she demanded I leave the room. her nurse reported hospital course: Patient was admitted for sepsis due to aspiration pneumonia due to vomiting from norovirus. Was treated with IV Unasyn and will be discharged on 5 more days of Augmentin. Was seen by speech who recommended NDD3 solids and thin liquids. Had respiratory viral panel which was negative. Sepsis resolved and patient's fevers resolved. Patient feels back to baseline. For adrenal insufficiency received stress dosing and is now back on baseline prednisone and Florinef. For hyperlipidemia was continued on statin. For hypertension amlodipine has been held for low normal blood pressures. For schizophrenia continues to have chronic delusions does not require inpatient psychiatry anymore will continue to follow in community. Time Attestation Discharge Coordination Time (in mins): 32 Quality: Safe Use of Opioids Does Pt have an Active Cancer Diagnosis on the Problem List?: No Quality: Stroke Does the patient have a stroke diagnosis?: No Physical Exam Vital Signs: Vital Signs: Last Vital Signs Temp 97.3 F 04/12/24 14:07 Pulse 63 04/12/24 14:07 Resp 16 04/12/24 14:07 BP 104/51 L 04/12/24 14:07 Pulse Ox 95 04/12/24 14:07 O2 Del Method Room Air 04/12/24 14:07 BMI result Body Mass Index 23.0 Discharge Plan Discharge Anticipated Discharge Date/Time: 04/10/24 23:03 Patient Disposition: Xfer Other Discharge Diagnosis: Schizophrenia Sepsis Pneumonia Referrals: [facility] [Outside] - 1 Week Physician,Unknown J [Primary Care Provider] - 1 Week Discharge Medications: New prednisone 5 mg Tablet 15 mg PO DAILY 30 Days Qty: 90 0RF melatonin 3 mg Tablet 6 mg PO BEDTIME PRN (Reason: Insomnia) 30 Days Qty: 30 0RF fludrocortisone 0.1 mg Tablet 0.1 mg PO BID 30 Days Qty: 60 0RF cholecalciferol (vitamin D3) 25 mcg (1,000 unit) Tablet 25 mcg PO DAILY 30 Days Qty: 30 0RF Discontinued sennosides [senna] 8.6 mg tablet 17.2 mg PO DAILY Patient Comments: last filled 12/21/23 prednisone 5 mg tablet 5 mg PO DAILY Patient Comments: last [id number]/24 prednisone 1 mg tablet 1 mg PO DAILY Patient Comments: last [id number]/24/24 fludrocortisone 0.1 mg tablet 0.1 mg PO BID cholecalciferol (vitamin D3) [Vitamin D3] 25 mcg (1,000 unit) capsule 25 mcg PO DAILY Patient Comments: Last filled 12/21/23 atorvastatin 20 mg Tablet 20 mg PO DAILY Qty: 1 0RF amlodipine 5 mg Tablet 5 mg PO DAILY Qty: 1 0RF Protocol: Hold for SBP< HOLD for SBP < : 90 No Action olanzapine [Zyprexa Zydis] 15 mg Tablet,Disintegrating 15 mg PO BEDTIME atorvastatin 20 mg tablet 20 mg PO BEDTIME acetaminophen 325 mg Tablet 650 mg PO Q4H PRN (Reason: Pain/Fever) acetaminophen 650 mg Suppository 650 mg MO Q4H PRN (Reason: Pain/Fever) magnesium hydroxide [Milk of Magnesia] 400 mg/5 mL Suspension 30 ml PO DAILY PRN (Reason: Constipation) Fleet Enema 19-7 gram/118 mL Enema 118 ml MO DAILY PRN (Reason: Constipation) risperidone 1 mg Tablet 1 mg PO BID PRN (Reason: Increased Delusions/Agitation) benzonatate 100 mg Capsule 100 mg PO Q8H PRN (Reason: Cough) bisacodyl 10 mg Suppository 10 mg MO DAILY PRN (Reason: Constipation) Discharge Orders: Discharge Order (Routine); Ordered 04/12/24 Ordered By: Erasmo [place] Diet: ndd3 solids, thin liquids Activity on Discharge: As tolerated Stand Alone Forms: Patient Portal Discharge page Print Language: Bengali Care Plan Goals: Recovery Health Concerns: Pneumonia, norovirus Plan of Treatment: 5 more days of Augmentin Assessment: See above Discharge Date/Time: 04/12/24 14:15
== END 2024-04-12 14:15 | disposition skilled nursing facility (03) | DRG 871 ==
PROVIDERS: Admitting Provider Student in an Organized Health Care Education/Training Program; Visit Provider Internal Medicine
DX: A41.9 Sepsis, unspecified organism (principal); J69.0 Pneumonitis due to inhalation of food and vomit; E27.40 Unspecified adrenocortical insufficiency; A08.11 Acute gastroenteropathy due to Norwalk agent; F03.90 Unspecified dementia, unspecified severity, without behavioral disturbance, psychotic disturbance, mood disturbance, and anxiety; E78.5 Hyperlipidemia, unspecified; I10 Essential (primary) hypertension; F20.9 Schizophrenia, unspecified; Z79.899 Other long term (current) drug therapy
CPT/HCPCS: 36415; 71250; 80048; 81001; 83880; 85025; 85027; 87086; 87493; 87507; 92610; J0295; J0696; J1650; J2405; J7120; S9485

== ENCOUNTER → 2024-04-09 23:58 | Outpatient (BNV) | payer MEDICARE, MEDICAID, SELFPAY | PROVIDERS: Admitting Provider Student in an Organized Health Care Education/Training Program; Visit Provider Physician Assistant | DX: F20.9 Schizophrenia, unspecified (principal) | CPT/HCPCS: 99232 ==

== ENCOUNTER → 2024-04-09 23:58 | Outpatient (BNV) | payer MEDICARE, MEDICAID, SELFPAY | PROVIDERS: Admitting Provider Student in an Organized Health Care Education/Training Program; Visit Provider Psychiatry & Neurology Psychiatry | DX: F20.9 Schizophrenia, unspecified (principal) | CPT/HCPCS: 99238 ==

== ENCOUNTER 2024-04-22 16:01 | Outpatient (BNV) | payer MEDICARE, MEDICAID, SELFPAY | END 2024-05-10 08:00 | PROVIDERS: Admitting Provider Psychiatry & Neurology Psychiatry; Visit Provider Internal Medicine | DX: R94.31 Abnormal electrocardiogram [ECG] [EKG] (principal) | CPT/HCPCS: 93010 ==

== ENCOUNTER 2024-04-22 16:01 | Inpatient (IN) | payer MEDICARE, MEDICAID, SELFPAY ==
[2024-04-22 16:25] VITALS: BP 170/72; PULSE 58; RESP 16; TEMP 36.1; O2SAT 97
[2024-04-22 16:48] VITALS: BMI 24.5
--- NOTE | 2024-04-22 18:51 | PC.ADMIT ---
June was admitted to S[facility] from [facility] ED for psychosis. She had been residing at [facility] in [place] and was sent to the ED due to increased agitation and auditory hallucinations. Per crisis, June had been disrobing multiple times a day at the facility and speaking about the devil. Skin check was completed upon admission. June signed a CV with provider. She denies suicidal and homicidal thoughts and intent. She endorses AH and denies VH. She requested to go to her room and lay down and did not participate in admission assessment. She is alert and oriented to self and location. She states that she only eats one meal a day. Utox and BAL were not completed in ED. She was placed on 5 minute checks.
[2024-04-22 19:54] VITALS: BP 195/80; PULSE 70; TEMP 36; O2SAT 97
[2024-04-22 20:00] VITALS: BP 170/71; PULSE 68
[2024-04-22 20:23] LABS: Alanine Aminotransferase 18 U/L (0-31); Albumin Level 3.9 g/dL (3.5-5.0); Alkaline Phosphatase 80 U/L (39-117); Anion Gap 15 (12-20); Aspartate Amino Transferase 26 U/L (5-31); Bilirubin Total 0.3 mg/dL (0.0-1.0); Blood Urea Nitrogen 13 mg/dL (9-16); Calcium 9.5 mg/dL (8.4-10.2); Carbon Dioxide 28 mmol/L (22-29); Chloride 105 mmol/L (96-108); Creatinine Clr Calc Pharmacy 66.7; Estimated Glomerular Filt Rate > 60; Glucose Random 119 mg/dL (60-115); Potassium 2.9 mmol/L (3.3-5.1); Sodium 145 mmol/L (135-145); Total Protein 7.6 g/dL (6.5-8.0)
[2024-04-22] MEDS: traZODone HCL 50 MG TABLET PO (20:33)
[2024-04-22] MEDS: Fludrocortisone Acetate 0.1 MG TABLET PO (20:35)
[2024-04-22] MEDS: OLANZapine 7.5 MG TABLET 15 MG PO (20:35)
[2024-04-22] MEDS: risperiDONE 2 MG TABLET PO (20:36)
[2024-04-22] MEDS: Atorvastatin Calcium 20 MG TABLET PO (20:36)
[2024-04-22] MEDS: Potassium Chloride Packet 20 MEQ PACKET 60 MEQ PO (21:05)
[2024-04-22 22:18] VITALS: BP 170/71
[2024-04-22] MEDS: cloNIDine HCL 0.1 MG TABLET PO (22:18)
[2024-04-22 23:45] VITALS: BP 137/68; PULSE 60; RESP 16; O2SAT 95
--- NOTE | 2024-04-23 06:43 | HO.PM.IMCN ---
History of Present Illness Data of Consult Service Date: 04/23/24 Requesting physician: Jacinto Lowe Primary Care Provider: None Physician HPI Reason for consult: medical consult Patient is a 73-year-old female with a past medical history significant for hyperlipidemia, anxiety, hypotension and paranoid schizophrenia, who was admitted to [facility] recently again for paranoia with multiple admissions for similar and a recent hospitalization for aspiration pneumonia. She has no general medical concerns today. She denies chest pain, headache, abdominal pain, nausea, vomiting or urinary symptoms including frequency, urgency or dysuria. Review of Systems Constitutional: Constitutional: Denies body ache(s), Denies chills, Denies fatigue, Denies fever(s) and Denies headache(s) Eyes: Eyes: Denies change in vision and Denies photophobia ENT: Denies headache(s), Denies nasal congestion, Denies nasal discharge and Denies sore throat Cardiovascular: Cardiovascular: Denies chest pain, Denies rapid heart rate, Denies leg edema, Denies lightheadedness and Denies dyspnea Respiratory: Respiratory: Denies chest congestion, Denies cough, Denies dyspnea and Denies wheezing Gastrointestinal: Gastrointestinal: Denies abdominal pain, Denies GI cramping, Denies diarrhea, Denies nausea and Denies vomiting Genitourinary: Genitourinary: Denies hematuria, Denies dysuria and Denies urinary urgency Musculoskeletal: Musculoskeletal: Denies back pain Integumentary/Breasts: Skin/Breast: Denies rash Neurologic: Denies headache(s) Psychiatric: Psychiatric: Reports as per HPI Endocrine: Endocrine: Denies fatigue Hematologic/Lymphatic: Hematologic/Lymphatic: Denies easy bleeding and Denies easy bruising Allergic/Immunologic: Allergic/Immunologic: Denies wheezing [facility] Medical History (Updated 04/23/24 @ 06:46 by Rima Ireland PA-C) Medical clearance for psychiatric admission Adrenal insufficiency Schizoaffective disorder, depressive type HLD (hyperlipidemia) Functional capacity: independent ambulation Social History Household Members: Other Household Members Other:: resides at [place], [place] Housing: Correction Do you presently have visiting nurse or other home services: No Patient Tobacco Use Status: Never used Tobacco Tobacco use type: Cigarette e-Cigarette/Vaping Use: Never Used Second Hand Smoke Exposure: Yes Use of substances other than those prescribed or required for medical reasons: No Currently Displaying Signs/Symptoms of Drug Intoxication Withdrawal: No Advance Directives: No Advance Directives Information Provided: No Do you have thoughts of harming others: None Do you have a plan to hurt others: No Plan Recently lost weight without trying: Unsure Eating poorly because of decreased appetite: Yes Nutrition Risks: No Nutritional Risk Patient : No : No Poor oral hygiene: No service: No Sexual orientation: Straight/Heterosexual Meds Allergies Allergy/AdvReac Type Severity Reaction Status Date / Time No Known Allergies Allergy Verified 12/25/23 17:04 Active Medications: Current Medications Acetaminophen (Acetaminophen 325 Mg Tablet) 650 mg PO Q6H PRN PRN Reason: Headache/Pain, Scale 1-10 Al Hydroxide/Mg Hydroxide (Magnesium Hydrox/Alum Hydrox 30 Ml Oral.Susp) 30 ml PO Q6H PRN PRN Reason: Heartburn/Nausea Amlodipine Besylate (Amlodipine Besylate 2.5 Mg Tablet) 7.5 mg PO DAILY [facility]; Protocol Atorvastatin Calcium (Atorvastatin Calcium 20 Mg Tablet) 20 mg PO BEDTIME [facility] Last Admin: 04/22/24 20:36 Dose: 20 mg Benzonatate (Benzonatate 100 Mg Capsule) 100 mg PO TID PRN PRN Reason: Cough Fludrocortisone Acetate (Fludrocortisone Acetate 0.1 Mg Tablet) 0.1 mg PO BID [facility] Last Admin: 04/22/24 20:35 Dose: 0.1 mg Hydroxyzine HCl (Hydroxyzine Hcl 25 Mg Tablet) 25 mg PO Q6H PRN PRN Reason: mild anxiety Magnesium Hydroxide (Milk Of Magnesia 30 Ml Oral.Susp) 30 ml PO DAILY PRN PRN Reason: Constipation Melatonin (Melatonin 3 Mg Tablet) 6 mg PO BEDTIME PRN PRN Reason: Insomnia Olanzapine (Olanzapine 7.5 Mg Tablet) 15 mg PO BEDTIME [facility] Last Admin: 04/22/24 20:35 Dose: 15 mg Prednisone (Prednisone 5 Mg Tablet) 15 mg PO DAILY [facility] Risperidone (Risperidone 2 Mg Tablet) 2 mg PO BID [facility] Last Admin: 04/22/24 20:36 Dose: 2 mg Trazodone HCl (Trazodone Hcl 50 Mg Tablet) 50 mg PO BEDTIME MRX1 PRN PRN Reason: Insomnia Last Admin: 04/22/24 20:33 Dose: 50 mg Vitamin D (Cholecalciferol (Vitamin D3) 25 Mcg Tablet) 25 mcg PO DAILY [facility] Home Medications ?Medication ?Instructions ?Recorded ?Confirmed ?Last Taken ?Type amlodipine 2.5 mg tablet 7.5 mg PO DAILY 04/22/24 04/22/24 Unknown History atorvastatin 20 mg tablet 20 mg PO BEDTIME 04/22/24 04/22/24 Unknown History olanzapine 15 mg disintegrating 15 mg PO BEDTIME 04/22/24 04/22/24 Unknown History tablet (Zyprexa Zydis) risperidone 2 mg tablet (Risperdal) 2 mg PO BID 04/22/24 04/22/24 Unknown History Physical Exam Vital Signs and Narrative: Vital Signs: Last Vital Signs Temp 96.8 F 04/22/24 19:54 Pulse 60 04/22/24 23:45 Resp 16 04/22/24 23:45 BP 137/68 04/22/24 23:45 Pulse Ox 95 04/22/24 23:45 O2 Del Method Room Air 04/22/24 23:45 BMI result Body Mass Index 24.5 General: AOx3, no acute distress. pt resting comfortably in bed. Resp: CTA bilaterally CVS: S1, S2, RRR GI: +BS, NT, no distention Skin: Warm, dry Neuro: Cranial nerves II-XII grossly intact bilaterally. Motor grossly intact bilaterally Extremities: No LE edema Psych: Appropriate affect Eyes: Direct Ophthalmoscopy: No photophobia Results Labs 04/22/24 19:49 Labs: Laboratory Results - last 24 hr 04/22/24 19:49 Anion Gap 15 Estim Creat Clear Calc 66.7 Estimated GFR > 60 Random Glucose 119 H Calcium 9.5 D Total Bilirubin 0.3 AST 26 ALT 18 Alkaline Phosphatase 80 Total Protein 7.6 Albumin 3.9 Assessment and Plan (1) Medical clearance for psychiatric admission: Status: Acute (2) Hypokalemia: Status: Acute Plan Patient is a 73-year-old female with a past medical history significant for hyperlipidemia, anxiety, adrenal insufficiency and paranoid schizophrenia, who was admitted to [facility] recently again for paranoia with multiple admissions for similar and a recent hospitalization for aspiration pneumonia. mood disorder - plan per psych hypokalemia - no nausea, vomiting or diarrhea per pt - K 2.9 yesterday, given 60 meq PO, recheck this AM - add mag level to labs HLD - continue statin Adrenal insufficiency - continue prednisone and fludrocortisone HTN - continue amlodipine recent aspiration pneumonia - speech eval with recommendation for NDD3 solids Thank you for allowing me to participate in the pt's care. Will continue to follow until kypokalemia resolves. Please contact the medical team if any questions or concerns.
[2024-04-23 08:49] LABS: Magnesium 2.1 mg/dL (1.6-2.6)
[2024-04-23 08:50] LABS: Anion Gap 13 (12-20); Blood Urea Nitrogen 13 mg/dL (9-16); Carbon Dioxide 29 mmol/L (22-29); Chloride 108 mmol/L (96-108); Cholesterol 158 mg/dL (<200); Creatinine Clr Calc Pharmacy 63.7; Estimated Glomerular Filt Rate > 60; Glucose Random 92 mg/dL (60-115); HDL Cholesterol 45 mg/dL (>40); LDL Cholesterol Calculated 92 mg/dL (<100); Potassium 3.8 mmol/L (3.3-5.1); Sodium 146 mmol/L (135-145); Triglycerides 108 mg/dL (<150)
--- NOTE | 2024-04-23 09:29 | PHA.MEDREC ---
Addendum entered by Marissa Joy [facility] 04/23/24 11:06: Both amlodipine 7.5 mg daily and risperidone 2 mg bid were continued by provider. Spoke to nurse Montse Gonzalez who did the med rec about amlodipine 7.5 mg daily. She said she saw it in the progress note dated 04/09/[address]ified Dr. Lowe that amlodipine 7.5 mg is not on the [facility] (at [place]) med list and they have risperidone as [address] Lowe wants to keep the orders as they are. Original Note: Pharmacy Consult ? Medication Reconciliation Pharmacy reviewed med rec done by nursing. Received med list from [facility] [place] and utilized that to update and confirm list. Amoxicillin and Amlodipine were not on the list from [facility] so I took those off and Risperidone 2mg tabs twice a day was updated to Risperidone 1mg tab twice daily per the med list.
--- NOTE | 2024-04-23 10:24 | HO.PSYADMNOT ---
HPI Date of Service: 04/23/24 Chief Complaint: F25, F41.1 Sources of Information: patient interviewed, chart reviewed and crisis/core team assessment reviewed HPI Subjective Notes: [place] Warning and Conditional Voluntary Narrative: The patient is a 73-year-old female with a long history of schizophrenia, who was admitted into this facility until 2 weeks ago that she was discharged to correction facility. While she was over there, she developed pneumonia and she was rushed to the emergency room treated on a local medical unit and discharged back to her correction facility without antipsychotics. According to the crisis assessment, the patient decompensate very fast she was not wearing clothes and she was intrusive. She was rushed back to the emergency room assessed by crisis and transferring to this facility for psychiatric stabilization. While she was in the emergency room, the patient was restarted on Risperdal and Zyprexa. On the intake interview the patient reports that she is feeling much better, no evidence of new symptoms she denies auditory hallucinations but looks internally preoccupied. We will restart with a regular Zyprexa and Risperdal and reassess. The patient is a very poor historian due to her cognitive impairment able to contract for safety in the facility. Past Psychiatric History: Past psychiatric hospitalizations, most recently 08/17/2023 and the last one here 2 weeks ago Medical Evaluation Reviewed: Yes [facility] Medical History (Updated 04/23/24 @ 06:46 by Rima Ireland PA-C) Medical clearance for psychiatric admission Adrenal insufficiency Schizoaffective disorder, depressive type HLD (hyperlipidemia) Family History: Father alcoholism Social History: Patient grew up with her father and 2 sisters (1 now ) and 1 brother; their mother ran away when patient was 8 years old Patient remains in contact with her brother and sister who live locally Patient has 2 adult children, a 35-year-old daughter Leah and a 31-year-old son Yazan who lives locally Patient has been at [facility] for about 6 years and says she likes it Substance History: Denies Trauma History: Patient refers to growing up with alcoholic father who was scary Diagnostics Vital Signs (24Hr): Vital Signs - 24 hr 04/22/24 16:25 04/22/24 19:54 04/22/24 20:00 Temperature 96.9 F 96.8 F Pulse Rate 58 70 68 Respiratory Rate 16 Blood Pressure 170/72 H 195/80 H 170/71 H Pulse Oximetry 97 97 Oxygen Delivery Method Room Air Room Air 04/22/24 22:18 04/22/24 23:45 Temperature Pulse Rate 60 Respiratory Rate 16 Blood Pressure 170/71 H 137/68 Pulse Oximetry 95 Oxygen Delivery Method Room Air BMI result Body Mass Index 24.5 Labs 04/23/24 07:47 Labs: Laboratory Results - last 48 hr 04/22/24 04/23/24 19:49 07:47 Sodium 145 146 H Potassium 2.9 L* 3.8 D Chloride 105 108 Carbon Dioxide 28 29 Anion Gap 15 13 BUN 13 13 Creatinine 0.63 0.66 Estim Creat Clear Calc 66.7 63.7 Estimated GFR > 60 > 60 Random Glucose 119 H 92 Calcium 9.5 D 9.0 Magnesium 2.1 Total Bilirubin 0.3 AST 26 ALT 18 Alkaline Phosphatase 80 Total Protein 7.6 Albumin 3.9 Triglycerides 108 Cholesterol 158 LDL Cholesterol, Calc 92 HDL Cholesterol 45 Meds/Allergies Meds Home Medications ?Medication ?Instructions ?Recorded ?Confirmed ?Type atorvastatin 20 mg tablet 20 mg PO BEDTIME 04/22/24 04/23/24 History olanzapine 15 mg disintegrating 15 mg PO BEDTIME 04/22/24 04/23/24 History tablet (Zyprexa Zydis) acetaminophen 325 mg tablet 650 mg PO Q4H PRN Pain/Fever 04/23/24 04/23/24 History acetaminophen 650 mg rectal 650 mg VT Q4H PRN Pain/Fever 04/23/24 04/23/24 History suppository benzonatate 100 mg capsule 100 mg PO Q8H PRN Cough 04/23/24 04/23/24 History bisacodyl 10 mg rectal suppository 10 mg VT DAILY PRN Constipation 04/23/24 04/23/24 History magnesium hydroxide 400 mg/5 mL 30 ml PO DAILY PRN Constipation 04/23/24 04/23/24 History oral suspension (Milk of Magnesia) risperidone 1 mg tablet 1 mg PO BID PRN Increased 04/23/24 04/23/24 History Delusions/Agitation sodium phosphates 19 gram-7 118 ml VT DAILY PRN Constipation 04/23/24 04/23/24 History gram/118 mL enema (Fleet Enema) Allergies Allergies Allergy/AdvReac Type Severity Reaction Status Date / Time No Known Allergies Allergy Verified 12/25/23 17:04 Mental Status Exam Mental Status Exam Patient Appearance: Appropriate Patient Orientation: Person and Situation Level of Consciousness: Awake and Appropriate Patient Behavior: Guarded and Passive Mood Description: Withdrawn Affect Description: Blunted Patient Cognition Impaired: Yes Ability to Follow Directions: Good Speech Pattern: Clear Hallucinations: Auditory Delusions: Paranoid Ideation and Ideas of Reference Thought Process: Distracted and Slowed Thinking Thought Content: positive for [place] and positive for Poverty of Content Judgement: Fair Assessment & Plan Assessment & Plan (1) Schizoaffective disorder, depressive type: Status: Acute Code(s): F25.1 - Schizoaffective disorder, depressive type (2) Dementia: Status: Acute Code(s): F03.90 - Unspecified dementia, unspecified severity, without behavioral disturbance, psychotic disturbance, mood disturbance, and anxiety Plan The patient is an elderly female with a long history of schizophrenia, dementia and several other medical comorbidities was in this unit for psychotic this compensation and transferred to the correction facility but later on she had been ammonia and admitted into medical unit the discontinue her antipsychotics and sent back to the correction facility that showed psychotic symptoms. Reassessed and transferred back for treatment. Plan 1. The patient is able to contract for safety 15 minute checks. 2. Restart Zyprexa 15 mg p.o. q.h.s. and Risperdal 2 mg p.o. b.i.d.. 3. Continue with medical workout. 4. Reassessment with results. Patient educated on: diagnosis and medication risk/benefits Reason for continued inpatient stay Substantial Risk for: inability to function, rapid decompensation and med/psych decompensation Statement Statement: I have reviewed the history and physical and performed a pertinent examination on my patient. No changes have occurred unless specified. If the History and Physical was not performed prior to admission, the Hospitalist's service will be consulted for completing the admission physical. Time Spent With Patient Time: Total time managing care of this patient today _45___ minutes.
[2024-04-23 12:39] VITALS: BP 80/46; PULSE 59; RESP 18; TEMP 36.4
[2024-04-23] MEDS: Cholecalciferol (Vitamin D3) 25 MCG TABLET PO (12:43)
[2024-04-23] MEDS: predniSONE 5 MG TABLET 15 MG PO (12:43)
[2024-04-23] MEDS: risperiDONE 2 MG TABLET PO ×2 (12:43→21:27)
[2024-04-23] MEDS: Fludrocortisone Acetate 0.1 MG TABLET PO ×2 (12:43→21:27)
[2024-04-23 14:32] VITALS: BP 84/44; PULSE 60
--- NOTE | 2024-04-23 15:10 | PM.EVENT ---
Event Note Date of Service: 04/23/24 Event Note: 73-year-old woman admitted to [facility] mental health treatment. Follow up for lab abnormality and hypotension Hypokalemia resolved with replacement Hypotension. History of adrenal insufficiency patient denied any lightheadedness or dizziness with ambulation or at rest. Recently restarted on Florinef and prednisone. Continue to follow blood pressures as per protocol. Time Spent With Patient Time: Total time managing care of this patient today ____ minutes.
[2024-04-23] MEDS: OLANZapine 7.5 MG TABLET 15 MG PO (21:26)
[2024-04-23] MEDS: Atorvastatin Calcium 20 MG TABLET PO (21:27)
[2024-04-23 21:34] VITALS: BP 111/57; PULSE 62; RESP 17; TEMP 36.2; O2SAT 94
[2024-04-24 08:00] VITALS: BP 119/65; PULSE 56; RESP 18; TEMP 36.4; O2SAT 97
[2024-04-24] MEDS: risperiDONE 2 MG TABLET PO ×2 (08:41→21:13)
[2024-04-24] MEDS: Cholecalciferol (Vitamin D3) 25 MCG TABLET PO (08:41)
[2024-04-24] MEDS: Fludrocortisone Acetate 0.1 MG TABLET PO ×2 (08:42→21:12)
[2024-04-24] MEDS: amLODIPine Besylate 2.5 MG TABLET 7.5 MG PO (08:42)
[2024-04-24] MEDS: predniSONE 5 MG TABLET 15 MG PO (08:42)
--- NOTE | 2024-04-24 12:30 | P.PNPSI_ITS ---
Subjective Subjective Date of Service: 04/24/24 Reason For Visit: F25, F41.1 Subjective Notes: Conditional Voluntary Interim History: The nursing staff reported the patient slept well, his blood pressure was low she had been asymptomatic. Slept 7 hours. The nephrology social worker reported that she does not have a place in her senior care facility anymore. On interview the patient reported exacerbation of auditory hallucinations and she is willing to continue treatment for the voices. Mental Status Exam Mental Status Exam Patient Appearance: Appropriate Patient Orientation: Person and Situation Level of Consciousness: Awake Patient Behavior: Guarded and Passive Mood Description: Withdrawn Affect Description: Constricted Patient Cognition Impaired: Yes Ability to Follow Directions: Good Speech Pattern: Clear Hallucinations: Auditory Delusions: Paranoid Ideation and Ideas of Reference Thought Process: Distracted and Slowed Thinking Thought Content: positive for [place] and positive for Poverty of Content Judgement: Fair Diagnostics Vital Signs (24Hr): Vital Signs - 24 hr 04/23/24 12:39 04/23/24 14:32 04/23/24 21:34 Temperature 97.5 F 97.1 F Pulse Rate 59 60 62 Respiratory Rate 18 17 Blood Pressure 80/46 L 84/44 L 111/57 L Pulse Oximetry 94 Oxygen Delivery Method Room Air Room Air 04/24/24 08:00 Temperature 97.5 F Pulse Rate 56 Respiratory Rate 18 Blood Pressure 119/65 Pulse Oximetry 97 Oxygen Delivery Method Room Air BMI result Body Mass Index 24.5 Labs 04/23/24 07:47 Labs: Laboratory Results - last 48 hr 04/22/24 04/23/24 19:49 07:47 Sodium 145 146 H Potassium 2.9 L* 3.8 D Chloride 105 108 Carbon Dioxide 28 29 Anion Gap 15 13 BUN 13 13 Creatinine 0.63 0.66 Estim Creat Clear Calc 66.7 63.7 Estimated GFR > 60 > 60 Random Glucose 119 H 92 Calcium 9.5 D 9.0 Magnesium 2.1 Total Bilirubin 0.3 AST 26 ALT 18 Alkaline Phosphatase 80 Total Protein 7.6 Albumin 3.9 Triglycerides 108 Cholesterol 158 LDL Cholesterol, Calc 92 HDL Cholesterol 45 Medications Medications Current Medications Acetaminophen (Acetaminophen 325 Mg Tablet) 650 mg PO Q6H PRN PRN Reason: Headache/Pain, Scale 1-10 Al Hydroxide/Mg Hydroxide (Magnesium Hydrox/Alum Hydrox 30 Ml Oral.Susp) 30 ml PO Q6H PRN PRN Reason: Heartburn/Nausea Amlodipine Besylate (Amlodipine Besylate 2.5 Mg Tablet) 7.5 mg PO DAILY [facility]; Protocol Last Admin: 04/24/24 08:42 Dose: 7.5 mg Atorvastatin Calcium (Atorvastatin Calcium 20 Mg Tablet) 20 mg PO BEDTIME [facility] Last Admin: 04/23/24 21:27 Dose: 20 mg Benzonatate (Benzonatate 100 Mg Capsule) 100 mg PO TID PRN PRN Reason: Cough Fludrocortisone Acetate (Fludrocortisone Acetate 0.1 Mg Tablet) 0.1 mg PO BID [facility] Last Admin: 04/24/24 08:42 Dose: 0.1 mg Hydroxyzine HCl (Hydroxyzine Hcl 25 Mg Tablet) 25 mg PO Q6H PRN PRN Reason: mild anxiety Magnesium Hydroxide (Milk Of Magnesia 30 Ml Oral.Susp) 30 ml PO DAILY PRN PRN Reason: Constipation Melatonin (Melatonin 3 Mg Tablet) 6 mg PO BEDTIME PRN PRN Reason: Insomnia Olanzapine (Olanzapine 7.5 Mg Tablet) 15 mg PO BEDTIME [facility] Last Admin: 04/23/24 21:26 Dose: 15 mg Prednisone (Prednisone 5 Mg Tablet) 15 mg PO DAILY [facility] Last Admin: 04/24/24 08:42 Dose: 15 mg Risperidone (Risperidone 2 Mg Tablet) 2 mg PO BID [facility] Last Admin: 04/24/24 08:41 Dose: 2 mg Trazodone HCl (Trazodone Hcl 50 Mg Tablet) 50 mg PO BEDTIME MRX1 PRN PRN Reason: Insomnia Last Admin: 04/22/24 20:33 Dose: 50 mg Vitamin D (Cholecalciferol (Vitamin D3) 25 Mcg Tablet) 25 mcg PO DAILY [facility] Last Admin: 04/24/24 08:41 Dose: 25 mcg Allergies Allergies Allergy/AdvReac Type Severity Reaction Status Date / Time No Known Allergies Allergy Verified 12/25/23 17:04 Assessment & Plan Assessment & Plan (1) Schizoaffective disorder, depressive type: Status: Acute Code(s): F25.1 - Schizoaffective disorder, depressive type (2) Dementia: Status: Acute Code(s): F03.90 - Unspecified dementia, unspecified severity, without behavioral disturbance, psychotic disturbance, mood disturbance, and anxiety Plan The patient is an elderly female with a long history of schizophrenia, dementia and several other medical comorbidities was in this unit for psychotic this compensation and transferred to the senior care facility but later on she had been ammonia and admitted into medical unit the discontinue her antipsychotics and sent back to the senior care facility that showed psychotic symptoms. Reassessed and transferred back for treatment. Plan 1. The patient is able to contract for safety 15 minute checks. 2. Restart Zyprexa 15 mg p.o. q.h.s. and Risperdal 2 mg p.o. b.i.d.. 3. Continue with medical workout. 4. Reassessment with results. Reason for continued inpatient stay Substantial Risk for: inability to function, rapid decompensation and med/psych decompensation Time Spent With Patient Time: Total time managing care of this patient today _20___ minutes.
[2024-04-24] MEDS: Magnesium Hydrox/Alum Hydrox 30 ML ORAL.SUSP PO (16:43)
[2024-04-24 20:00] VITALS: BP 113/50; PULSE 74; RESP 15; TEMP 36.6; O2SAT 96
[2024-04-24] MEDS: Atorvastatin Calcium 20 MG TABLET PO (21:12)
[2024-04-24] MEDS: hydrOXYzine HCL 25 MG TABLET PO (21:13)
[2024-04-24] MEDS: Melatonin 3 MG TABLET 6 MG PO (21:13)
[2024-04-24] MEDS: OLANZapine 7.5 MG TABLET 15 MG PO (21:13)
[2024-04-25 08:00] VITALS: BP 141/63; PULSE 73; RESP 16; TEMP 36.1; O2SAT 96
[2024-04-25] MEDS: Cholecalciferol (Vitamin D3) 25 MCG TABLET PO (08:44)
[2024-04-25] MEDS: predniSONE 5 MG TABLET 15 MG PO (08:45)
[2024-04-25] MEDS: Fludrocortisone Acetate 0.1 MG TABLET PO ×2 (08:46→20:29)
[2024-04-25] MEDS: risperiDONE 2 MG TABLET PO ×2 (08:46→20:29)
[2024-04-25 09:44] VITALS: BP 141/63
[2024-04-25] MEDS: amLODIPine Besylate 2.5 MG TABLET 7.5 MG PO (09:44)
--- NOTE | 2024-04-25 11:11 | P.PNPSI_ITS ---
Subjective Subjective Date of Service: 04/25/24 Reason For Visit: F25, F41.1 Subjective Notes: Conditional Voluntary Interim History: The nursing staff reported the patient had been anxious and depressed, she admitted auditory hallucinations and she had been paranoid stating that people will burn her. She refused lunch. Historically, the patient has only 1 meal a day. On interview the patient was on her bed reporting that she was doing fine compliant with treatment. We will wait for the response of the antipsychotics. Mental Status Exam Mental Status Exam Patient Appearance: Appropriate Patient Orientation: Person and Situation Level of Consciousness: Awake and Appropriate Patient Behavior: Guarded and Passive Mood Description: Withdrawn Affect Description: Constricted Patient Cognition Impaired: Yes Ability to Follow Directions: Good Speech Pattern: Clear Hallucinations: Auditory Delusions: Paranoid Ideation and Ideas of Reference Thought Process: Distracted and Slowed Thinking Thought Content: positive for [place] and positive for Poverty of Content Judgement: Fair Diagnostics Vital Signs (24Hr): Vital Signs - 24 hr 04/24/24 20:00 04/25/24 08:00 04/25/24 09:44 Temperature 98 F 97.0 F Pulse Rate 74 73 Respiratory Rate 15 16 Blood Pressure 113/50 L 141/63 H 141/63 H Pulse Oximetry 96 96 Oxygen Delivery Method Room Air Room Air BMI result Body Mass Index 24.5 Labs 04/23/24 07:47 Medications Medications Current Medications Acetaminophen (Acetaminophen 325 Mg Tablet) 650 mg PO Q6H PRN PRN Reason: Headache/Pain, Scale 1-10 Al Hydroxide/Mg Hydroxide (Magnesium Hydrox/Alum Hydrox 30 Ml Oral.Susp) 30 ml PO Q6H PRN PRN Reason: Heartburn/Nausea Last Admin: 04/24/24 16:43 Dose: 30 ml Amlodipine Besylate (Amlodipine Besylate 2.5 Mg Tablet) 7.5 mg PO DAILY [facility]; Protocol Last Admin: 04/25/24 09:44 Dose: 7.5 mg Atorvastatin Calcium (Atorvastatin Calcium 20 Mg Tablet) 20 mg PO BEDTIME [facility] Last Admin: 04/24/24 21:12 Dose: 20 mg Benzonatate (Benzonatate 100 Mg Capsule) 100 mg PO TID PRN PRN Reason: Cough Fludrocortisone Acetate (Fludrocortisone Acetate 0.1 Mg Tablet) 0.1 mg PO BID [facility] Last Admin: 04/25/24 08:46 Dose: 0.1 mg Hydroxyzine HCl (Hydroxyzine Hcl 25 Mg Tablet) 25 mg PO Q6H PRN PRN Reason: mild anxiety Last Admin: 04/24/24 21:13 Dose: 25 mg Magnesium Hydroxide (Milk Of Magnesia 30 Ml Oral.Susp) 30 ml PO DAILY PRN PRN Reason: Constipation Melatonin (Melatonin 3 Mg Tablet) 6 mg PO BEDTIME PRN PRN Reason: Insomnia Last Admin: 04/24/24 21:13 Dose: 6 mg Olanzapine (Olanzapine 7.5 Mg Tablet) 15 mg PO BEDTIME [facility] Last Admin: 04/24/24 21:13 Dose: 15 mg Prednisone (Prednisone 5 Mg Tablet) 15 mg PO DAILY [facility] Last Admin: 04/25/24 08:45 Dose: 15 mg Risperidone (Risperidone 2 Mg Tablet) 2 mg PO BID [facility] Last Admin: 04/25/24 08:46 Dose: 2 mg Trazodone HCl (Trazodone Hcl 50 Mg Tablet) 50 mg PO BEDTIME MRX1 PRN PRN Reason: Insomnia Last Admin: 04/22/24 20:33 Dose: 50 mg Vitamin D (Cholecalciferol (Vitamin D3) 25 Mcg Tablet) 25 mcg PO DAILY [facility] Last Admin: 04/25/24 08:44 Dose: 25 mcg Allergies Allergies Allergy/AdvReac Type Severity Reaction Status Date / Time No Known Allergies Allergy Verified 12/25/23 17:04 Assessment & Plan Assessment & Plan (1) Schizoaffective disorder, depressive type: Status: Acute Code(s): F25.1 - Schizoaffective disorder, depressive type (2) Dementia: Status: Acute Code(s): F03.90 - Unspecified dementia, unspecified severity, without behavioral disturbance, psychotic disturbance, mood disturbance, and anxiety Plan The patient is an elderly female with a long history of schizophrenia, dementia and several other medical comorbidities was in this unit for psychotic this compensation and transferred to the halfway facility but later on she had been ammonia and admitted into medical unit the discontinue her antipsychotics and sent back to the halfway facility that showed psychotic symptoms. Reassessed and transferred back for treatment. Plan 1. The patient is able to contract for safety 15 minute checks. 2. Restart Zyprexa 15 mg p.o. q.h.s. and Risperdal 2 mg p.o. b.i.d.. 3. Continue with medical workout. 4. Reassessment with results. Reason for continued inpatient stay Substantial Risk for: inability to function, rapid decompensation and med/psych decompensation Time Spent With Patient Time: Total time managing care of this patient today _20___ minutes.
[2024-04-25 13:30] VITALS: BMI 25.1
[2024-04-25 20:00] VITALS: BP 139/66; PULSE 68; RESP 16; TEMP 36.1; O2SAT 97
[2024-04-25] MEDS: traZODone HCL 50 MG TABLET PO (20:29)
[2024-04-25] MEDS: Atorvastatin Calcium 20 MG TABLET PO (20:29)
[2024-04-25] MEDS: OLANZapine 7.5 MG TABLET 15 MG PO (20:29)
[2024-04-26 08:00] VITALS: BP 130/61; PULSE 63; RESP 18; TEMP 36.2; O2SAT 96
[2024-04-26 08:21] VITALS: BP 130/61
[2024-04-26] MEDS: Fludrocortisone Acetate 0.1 MG TABLET PO ×2 (08:21→20:11)
[2024-04-26] MEDS: predniSONE 5 MG TABLET 15 MG PO (08:21)
[2024-04-26] MEDS: Cholecalciferol (Vitamin D3) 25 MCG TABLET PO (08:21)
[2024-04-26] MEDS: risperiDONE 2 MG TABLET PO ×2 (08:21→20:10)
[2024-04-26] MEDS: amLODIPine Besylate 2.5 MG TABLET 7.5 MG PO (08:21)
--- NOTE | 2024-04-26 15:41 | HO.PSYCHPN ---
Subjective Subjective Date of Service: 04/26/24 Reason For Visit: F25, F41.1 Subjective Notes: Conditional Voluntary Interim History: The nursing staff reported the patient had been isolative in her room only coming out for meals. She complains of auditory hallucinations. The sr. social media & mobile manager is working on placement since her last long term facility has rejected her. On interview the patient reports sporadic auditory hallucinations still psychotic. She agreed to continue on antipsychotics. Mental Status Exam Mental Status Exam Patient Appearance: Appropriate Patient Orientation: Person and Situation Level of Consciousness: Awake and Appropriate Patient Behavior: Guarded and Passive Mood Description: Withdrawn Affect Description: Blunted Patient Cognition Impaired: Yes Ability to Follow Directions: Good Speech Pattern: Clear Hallucinations: Auditory Delusions: Paranoid Ideation and Ideas of Reference Thought Process: Illogical, Distracted and Slowed Thinking Thought Content: positive for [place] and positive for Poverty of Content Judgement: Fair Diagnostics Vital Signs (24Hr): Vital Signs - 24 hr 04/25/24 20:00 04/26/24 08:00 04/26/24 08:21 Temperature 97 F 97.2 F Pulse Rate 68 63 Respiratory Rate 16 18 Blood Pressure 139/66 130/61 130/61 Pulse Oximetry 97 96 Oxygen Delivery Method Room Air Room Air BMI result Body Mass Index 25.1 Labs 04/23/24 07:47 Medications Medications Current Medications Acetaminophen (Acetaminophen 325 Mg Tablet) 650 mg PO Q6H PRN PRN Reason: Headache/Pain, Scale 1-10 Al Hydroxide/Mg Hydroxide (Magnesium Hydrox/Alum Hydrox 30 Ml Oral.Susp) 30 ml PO Q6H PRN PRN Reason: Heartburn/Nausea Last Admin: 04/24/24 16:43 Dose: 30 ml Amlodipine Besylate (Amlodipine Besylate 2.5 Mg Tablet) 7.5 mg PO DAILY [facility]; Protocol Last Admin: 04/26/24 08:21 Dose: 7.5 mg Atorvastatin Calcium (Atorvastatin Calcium 20 Mg Tablet) 20 mg PO BEDTIME [facility] Last Admin: 04/25/24 20:29 Dose: 20 mg Benzonatate (Benzonatate 100 Mg Capsule) 100 mg PO TID PRN PRN Reason: Cough Fludrocortisone Acetate (Fludrocortisone Acetate 0.1 Mg Tablet) 0.1 mg PO BID [facility] Last Admin: 04/26/24 08:21 Dose: 0.1 mg Hydroxyzine HCl (Hydroxyzine Hcl 25 Mg Tablet) 25 mg PO Q6H PRN PRN Reason: mild anxiety Last Admin: 04/24/24 21:13 Dose: 25 mg Magnesium Hydroxide (Milk Of Magnesia 30 Ml Oral.Susp) 30 ml PO DAILY PRN PRN Reason: Constipation Melatonin (Melatonin 3 Mg Tablet) 6 mg PO BEDTIME PRN PRN Reason: Insomnia Last Admin: 04/24/24 21:13 Dose: 6 mg Olanzapine (Olanzapine 7.5 Mg Tablet) 15 mg PO BEDTIME [facility] Last Admin: 04/25/24 20:29 Dose: 15 mg Prednisone (Prednisone 5 Mg Tablet) 15 mg PO DAILY [facility] Last Admin: 04/26/24 08:21 Dose: 15 mg Risperidone (Risperidone 2 Mg Tablet) 2 mg PO BID [facility] Last Admin: 04/26/24 08:21 Dose: 2 mg Trazodone HCl (Trazodone Hcl 50 Mg Tablet) 50 mg PO BEDTIME MRX1 PRN PRN Reason: Insomnia Last Admin: 04/25/24 20:29 Dose: 50 mg Vitamin D (Cholecalciferol (Vitamin D3) 25 Mcg Tablet) 25 mcg PO DAILY [facility] Last Admin: 04/26/24 08:21 Dose: 25 mcg Allergies Allergies Allergy/AdvReac Type Severity Reaction Status Date / Time No Known Allergies Allergy Verified 12/25/23 17:04 Assessment & Plan Assessment & Plan (1) Schizoaffective disorder, depressive type: Status: Acute Code(s): F25.1 - Schizoaffective disorder, depressive type (2) Dementia: Status: Acute Code(s): F03.90 - Unspecified dementia, unspecified severity, without behavioral disturbance, psychotic disturbance, mood disturbance, and anxiety Plan The patient is an elderly female with a long history of schizophrenia, dementia and several other medical comorbidities was in this unit for psychotic this compensation and transferred to the long term facility but later on she had been ammonia and admitted into medical unit the discontinue her antipsychotics and sent back to the long term facility that showed psychotic symptoms. Reassessed and transferred back for treatment. Plan 1. The patient is able to contract for safety 15 minute checks. 2. Restart Zyprexa 15 mg p.o. q.h.s. and Risperdal 2 mg p.o. b.i.d.. 3. Continue with medical workout. 4. Reassessment with results. Reason for continued inpatient stay Substantial Risk for: inability to function, rapid decompensation and med/psych decompensation Time Spent With Patient Time: Total time managing care of this patient today __20__ minutes.
[2024-04-26 20:00] VITALS: BP 144/57; PULSE 71; RESP 16; TEMP 36.6; O2SAT 96
[2024-04-26] MEDS: OLANZapine 7.5 MG TABLET 15 MG PO (20:09)
[2024-04-26] MEDS: traZODone HCL 50 MG TABLET PO (20:10)
[2024-04-26] MEDS: Atorvastatin Calcium 20 MG TABLET PO (20:10)
[2024-04-27 08:40] VITALS: BP 114/59; PULSE 56; RESP 18; TEMP 36.3; O2SAT 95
[2024-04-27] MEDS: amLODIPine Besylate 2.5 MG TABLET 7.5 MG PO (08:57)
[2024-04-27] MEDS: predniSONE 5 MG TABLET 15 MG PO (08:57)
[2024-04-27] MEDS: Cholecalciferol (Vitamin D3) 25 MCG TABLET PO (08:57)
[2024-04-27] MEDS: risperiDONE 2 MG TABLET PO ×2 (08:57→20:13)
[2024-04-27] MEDS: Fludrocortisone Acetate 0.1 MG TABLET PO ×2 (08:57→20:15)
--- NOTE | 2024-04-27 17:23 | HO.PSYCHPN ---
Subjective Subjective Date of Service: 04/27/24 Reason For Visit: F25, F41.1 Interim History: no requests or complaints. per staff, psychotic - AH, talking about the devil and being burned on a cross. taking meds, eating meals. Mental Status Exam Mental Status Exam Patient Appearance: Appropriate Patient Orientation: Person and Situation Level of Consciousness: Awake and Appropriate Patient Behavior: Guarded and Passive Mood Description: Withdrawn Affect Description: Blunted Patient Cognition Impaired: Yes Ability to Follow Directions: Good Speech Pattern: Clear Hallucinations: Auditory Delusions: Paranoid Ideation and Ideas of Reference Thought Process: Illogical, Distracted and Slowed Thinking Thought Content: positive for [place] and positive for Poverty of Content Judgement: Fair Diagnostics Vital Signs (24Hr): Vital Signs - 24 hr 04/26/24 20:00 04/27/24 08:40 Temperature 97.8 F 97.4 F Pulse Rate 71 56 Respiratory Rate 16 18 Blood Pressure 144/57 H 114/59 L Pulse Oximetry 96 95 Oxygen Delivery Method Room Air Room Air BMI result Body Mass Index 25.1 Labs 04/23/24 07:47 Medications Medications Current Medications Acetaminophen (Acetaminophen 325 Mg Tablet) 650 mg PO Q6H PRN PRN Reason: Headache/Pain, Scale 1-10 Al Hydroxide/Mg Hydroxide (Magnesium Hydrox/Alum Hydrox 30 Ml Oral.Susp) 30 ml PO Q6H PRN PRN Reason: Heartburn/Nausea Last Admin: 04/24/24 16:43 Dose: 30 ml Amlodipine Besylate (Amlodipine Besylate 2.5 Mg Tablet) 7.5 mg PO DAILY [facility]; Protocol Last Admin: 04/27/24 08:57 Dose: 7.5 mg Atorvastatin Calcium (Atorvastatin Calcium 20 Mg Tablet) 20 mg PO BEDTIME [facility] Last Admin: 04/26/24 20:10 Dose: 20 mg Benzonatate (Benzonatate 100 Mg Capsule) 100 mg PO TID PRN PRN Reason: Cough Fludrocortisone Acetate (Fludrocortisone Acetate 0.1 Mg Tablet) 0.1 mg PO BID [facility] Last Admin: 04/27/24 08:57 Dose: 0.1 mg Hydroxyzine HCl (Hydroxyzine Hcl 25 Mg Tablet) 25 mg PO Q6H PRN PRN Reason: mild anxiety Last Admin: 04/24/24 21:13 Dose: 25 mg Magnesium Hydroxide (Milk Of Magnesia 30 Ml Oral.Susp) 30 ml PO DAILY PRN PRN Reason: Constipation Melatonin (Melatonin 3 Mg Tablet) 6 mg PO BEDTIME PRN PRN Reason: Insomnia Last Admin: 04/24/24 21:13 Dose: 6 mg Olanzapine (Olanzapine 7.5 Mg Tablet) 15 mg PO BEDTIME [facility] Last Admin: 04/26/24 20:09 Dose: 15 mg Prednisone (Prednisone 5 Mg Tablet) 15 mg PO DAILY [facility] Last Admin: 04/27/24 08:57 Dose: 15 mg Risperidone (Risperidone 2 Mg Tablet) 2 mg PO BID [facility] Last Admin: 04/27/24 08:57 Dose: 2 mg Trazodone HCl (Trazodone Hcl 50 Mg Tablet) 50 mg PO BEDTIME MRX1 PRN PRN Reason: Insomnia Last Admin: 04/26/24 20:10 Dose: 50 mg Vitamin D (Cholecalciferol (Vitamin D3) 25 Mcg Tablet) 25 mcg PO DAILY [facility] Last Admin: 04/27/24 08:57 Dose: 25 mcg Allergies Allergies Allergy/AdvReac Type Severity Reaction Status Date / Time No Known Allergies Allergy Verified 12/25/23 17:04 Assessment & Plan Assessment & Plan (1) Schizoaffective disorder, depressive type: Status: Acute Code(s): F25.1 - Schizoaffective disorder, depressive type (2) Dementia: Status: Acute Code(s): F03.90 - Unspecified dementia, unspecified severity, without behavioral disturbance, psychotic disturbance, mood disturbance, and anxiety Plan The patient is an elderly female with a long history of schizophrenia, dementia and several other medical comorbidities was in this unit for psychotic this compensation and transferred to the snf facility but later on she had been ammonia and admitted into medical unit the discontinue her antipsychotics and sent back to the snf facility that showed psychotic symptoms. Reassessed and transferred back for treatment. Plan 1. The patient is able to contract for safety 15 minute checks. 2. Restart Zyprexa 15 mg p.o. q.h.s. and Risperdal 2 mg p.o. b.i.d.. 3. Continue with medical workout. 4. Reassessment with results. Reason for continued inpatient stay Substantial Risk for: inability to function Time Spent With Patient Time: Total time managing care of this patient today ____ minutes.
[2024-04-27 20:00] VITALS: BP 105/52; PULSE 59; RESP 16; TEMP 37; O2SAT 95
[2024-04-27] MEDS: Atorvastatin Calcium 20 MG TABLET PO (20:13)
[2024-04-27] MEDS: OLANZapine 7.5 MG TABLET 15 MG PO (20:13)
[2024-04-27] MEDS: traZODone HCL 50 MG TABLET PO (20:14)
[2024-04-27] MEDS: hydrOXYzine HCL 25 MG TABLET PO (20:15)
[2024-04-28 08:48] VITALS: BP 122/68; PULSE 60; RESP 18; TEMP 36.4; O2SAT 98
[2024-04-28] MEDS: Fludrocortisone Acetate 0.1 MG TABLET PO ×2 (09:12→20:47)
[2024-04-28] MEDS: risperiDONE 2 MG TABLET PO ×2 (09:12→20:46)
[2024-04-28] MEDS: Cholecalciferol (Vitamin D3) 25 MCG TABLET PO (09:12)
[2024-04-28] MEDS: amLODIPine Besylate 2.5 MG TABLET 7.5 MG PO (09:12)
[2024-04-28] MEDS: predniSONE 5 MG TABLET 15 MG PO (09:12)
--- NOTE | 2024-04-28 13:30 | HO.PSYCHPN ---
Subjective Subjective Date of Service: 04/28/24 Reason For Visit: F25, F41.1 Interim History: no questions or complaints. per staff, no change, slept well. Mental Status Exam Mental Status Exam Patient Appearance: Appropriate Patient Orientation: Person and Situation Level of Consciousness: Awake and Appropriate Patient Behavior: Guarded and Passive Mood Description: Withdrawn Affect Description: Blunted Patient Cognition Impaired: Yes Ability to Follow Directions: Good Speech Pattern: Clear Hallucinations: Auditory Delusions: Paranoid Ideation and Ideas of Reference Thought Process: Illogical, Distracted and Slowed Thinking Thought Content: positive for [place] and positive for Poverty of Content Judgement: Fair Diagnostics Vital Signs (24Hr): Vital Signs - 24 hr 04/27/24 20:00 04/28/24 08:48 Temperature 98.6 F 97.5 F Pulse Rate 59 60 Respiratory Rate 16 18 Blood Pressure 105/52 L 122/68 Pulse Oximetry 95 98 Oxygen Delivery Method Room Air Room Air BMI result Body Mass Index 25.1 Labs 04/23/24 07:47 Medications Medications Current Medications Acetaminophen (Acetaminophen 325 Mg Tablet) 650 mg PO Q6H PRN PRN Reason: Headache/Pain, Scale 1-10 Al Hydroxide/Mg Hydroxide (Magnesium Hydrox/Alum Hydrox 30 Ml Oral.Susp) 30 ml PO Q6H PRN PRN Reason: Heartburn/Nausea Last Admin: 04/24/24 16:43 Dose: 30 ml Amlodipine Besylate (Amlodipine Besylate 2.5 Mg Tablet) 7.5 mg PO DAILY [facility]; Protocol Last Admin: 04/28/24 09:12 Dose: 7.5 mg Atorvastatin Calcium (Atorvastatin Calcium 20 Mg Tablet) 20 mg PO BEDTIME [facility] Last Admin: 04/27/24 20:13 Dose: 20 mg Benzonatate (Benzonatate 100 Mg Capsule) 100 mg PO TID PRN PRN Reason: Cough Fludrocortisone Acetate (Fludrocortisone Acetate 0.1 Mg Tablet) 0.1 mg PO BID [facility] Last Admin: 04/28/24 09:12 Dose: 0.1 mg Hydroxyzine HCl (Hydroxyzine Hcl 25 Mg Tablet) 25 mg PO Q6H PRN PRN Reason: mild anxiety Last Admin: 04/27/24 20:15 Dose: 25 mg Magnesium Hydroxide (Milk Of Magnesia 30 Ml Oral.Susp) 30 ml PO DAILY PRN PRN Reason: Constipation Melatonin (Melatonin 3 Mg Tablet) 6 mg PO BEDTIME PRN PRN Reason: Insomnia Last Admin: 04/24/24 21:13 Dose: 6 mg Olanzapine (Olanzapine 7.5 Mg Tablet) 15 mg PO BEDTIME [facility] Last Admin: 04/27/24 20:13 Dose: 15 mg Prednisone (Prednisone 5 Mg Tablet) 15 mg PO DAILY [facility] Last Admin: 04/28/24 09:12 Dose: 15 mg Risperidone (Risperidone 2 Mg Tablet) 2 mg PO BID [facility] Last Admin: 04/28/24 09:12 Dose: 2 mg Trazodone HCl (Trazodone Hcl 50 Mg Tablet) 50 mg PO BEDTIME MRX1 PRN PRN Reason: Insomnia Last Admin: 04/27/24 20:14 Dose: 50 mg Vitamin D (Cholecalciferol (Vitamin D3) 25 Mcg Tablet) 25 mcg PO DAILY [facility] Last Admin: 04/28/24 09:12 Dose: 25 mcg Allergies Allergies Allergy/AdvReac Type Severity Reaction Status Date / Time No Known Allergies Allergy Verified 12/25/23 17:04 Assessment & Plan Assessment & Plan (1) Schizoaffective disorder, depressive type: Status: Acute Code(s): F25.1 - Schizoaffective disorder, depressive type (2) Dementia: Status: Acute Code(s): F03.90 - Unspecified dementia, unspecified severity, without behavioral disturbance, psychotic disturbance, mood disturbance, and anxiety Plan The patient is an elderly female with a long history of schizophrenia, dementia and several other medical comorbidities was in this unit for psychotic this compensation and transferred to the care home facility but later on she had been ammonia and admitted into medical unit the discontinue her antipsychotics and sent back to the care home facility that showed psychotic symptoms. Reassessed and transferred back for treatment. Plan 1. The patient is able to contract for safety 15 minute checks. 2. Restart Zyprexa 15 mg p.o. q.h.s. and Risperdal 2 mg p.o. b.i.d.. 3. Continue with medical workout. 4. Reassessment with results. Reason for continued inpatient stay Substantial Risk for: inability to function Time Spent With Patient Time: Total time managing care of this patient today ____ minutes.
[2024-04-28] MEDS: hydrOXYzine HCL 25 MG TABLET PO (16:28)
--- NOTE | 2024-04-28 18:04 | PC.NURSE ---
While I was at break the patient started grabbing staff's breasts stating, The voices are telling me to do it. She also put herself on the floor x2 in front of staff. Then she stood up and screamed, I'm going crazy! Dr. Bennett updated that prn Atarax was given earlier and did not help her high anxiety. Zyprexa and Ativan ordered.
[2024-04-28] MEDS: OLANZapine 5 MG TABLET PO (18:14)
[2024-04-28] MEDS: LORazepam 1 MG TABLET PO (18:15)
[2024-04-28 20:00] VITALS: BP 110/55; PULSE 75; RESP 16; TEMP 35.9; O2SAT 95
[2024-04-28] MEDS: OLANZapine 7.5 MG TABLET 15 MG PO (20:45)
[2024-04-28] MEDS: traZODone HCL 50 MG TABLET PO (20:46)
[2024-04-28] MEDS: Atorvastatin Calcium 20 MG TABLET PO (20:47)
[2024-04-29] MEDS: Cholecalciferol (Vitamin D3) 25 MCG TABLET PO (08:21)
[2024-04-29] MEDS: predniSONE 5 MG TABLET 15 MG PO (08:21)
[2024-04-29] MEDS: risperiDONE 2 MG TABLET PO ×2 (08:22→20:27)
[2024-04-29] MEDS: amLODIPine Besylate 2.5 MG TABLET 7.5 MG PO (08:22)
[2024-04-29] MEDS: Fludrocortisone Acetate 0.1 MG TABLET PO ×2 (08:22→20:27)
[2024-04-29 08:27] VITALS: BP 119/59; PULSE 53; RESP 18; TEMP 35.8; O2SAT 96
--- NOTE | 2024-04-29 11:31 | P.PNPSI_ITS ---
Subjective Subjective Date of Service: 04/29/24 Reason For Visit: F25, F41.1 Subjective Notes: Conditional Voluntary Interim History: The nursing staff reported the patient had been having auditory hallucinations but she had been quiet isolative in her room. The social and political studies professor reported the [facility] is interested on her placement. On interview the patient reports that she is having less auditory hallucinations at this moment. Mental Status Exam Mental Status Exam Patient Appearance: Appropriate Patient Orientation: Person and Situation Level of Consciousness: Awake and Appropriate Patient Behavior: Guarded and Passive Mood Description: Withdrawn Affect Description: Constricted Patient Cognition Impaired: Yes Ability to Follow Directions: Good Speech Pattern: Clear Hallucinations: Auditory Delusions: Paranoid Ideation and Ideas of Reference Thought Process: Distracted Thought Content: positive for [place] and positive for Poverty of Content Judgement: Fair Diagnostics Vital Signs (24Hr): Vital Signs - 24 hr 04/28/24 20:00 04/29/24 08:27 Temperature 96.6 F L 96.5 F L Pulse Rate 75 53 Respiratory Rate 16 18 Blood Pressure 110/55 L 119/59 L Pulse Oximetry 95 96 Oxygen Delivery Method Room Air Room Air BMI result Body Mass Index 25.1 Labs 04/23/24 07:47 Medications Medications Current Medications Acetaminophen (Acetaminophen 325 Mg Tablet) 650 mg PO Q6H PRN PRN Reason: Headache/Pain, Scale 1-10 Al Hydroxide/Mg Hydroxide (Magnesium Hydrox/Alum Hydrox 30 Ml Oral.Susp) 30 ml PO Q6H PRN PRN Reason: Heartburn/Nausea Last Admin: 04/24/24 16:43 Dose: 30 ml Amlodipine Besylate (Amlodipine Besylate 2.5 Mg Tablet) 7.5 mg PO DAILY DORIE; Protocol Last Admin: 04/29/24 08:22 Dose: 7.5 mg Atorvastatin Calcium (Atorvastatin Calcium 20 Mg Tablet) 20 mg PO BEDTIME DORIE Last Admin: 04/28/24 20:47 Dose: 20 mg Benzonatate (Benzonatate 100 Mg Capsule) 100 mg PO TID PRN PRN Reason: Cough Fludrocortisone Acetate (Fludrocortisone Acetate 0.1 Mg Tablet) 0.1 mg PO BID [facility] Last Admin: 04/29/24 08:22 Dose: 0.1 mg Hydroxyzine HCl (Hydroxyzine Hcl 25 Mg Tablet) 25 mg PO Q6H PRN PRN Reason: mild anxiety Last Admin: 04/28/24 16:28 Dose: 25 mg Lorazepam (Lorazepam 1 Mg Tablet) 1 mg PO Q4H PRN PRN Reason: agitation Last Admin: 04/28/24 18:15 Dose: 1 mg Magnesium Hydroxide (Milk Of Magnesia 30 Ml Oral.Susp) 30 ml PO DAILY PRN PRN Reason: Constipation Melatonin (Melatonin 3 Mg Tablet) 6 mg PO BEDTIME PRN PRN Reason: Insomnia Last Admin: 04/24/24 21:13 Dose: 6 mg Olanzapine (Olanzapine 7.5 Mg Tablet) 15 mg PO BEDTIME DORIE Last Admin: 04/28/24 20:45 Dose: 15 mg Olanzapine (Olanzapine 5 Mg Tablet) 5 mg PO Q4H PRN PRN Reason: agitation Last Admin: 04/28/24 18:14 Dose: 5 mg Prednisone (Prednisone 5 Mg Tablet) 15 mg PO DAILY [facility] Last Admin: 04/29/24 08:21 Dose: 15 mg Risperidone (Risperidone 2 Mg Tablet) 2 mg PO BID [facility] Last Admin: 04/29/24 08:22 Dose: 2 mg Trazodone HCl (Trazodone Hcl 50 Mg Tablet) 50 mg PO BEDTIME MRX1 PRN PRN Reason: Insomnia Last Admin: 04/28/24 20:46 Dose: 50 mg Vitamin D (Cholecalciferol (Vitamin D3) 25 Mcg Tablet) 25 mcg PO DAILY [facility] Last Admin: 04/29/24 08:21 Dose: 25 mcg Allergies Allergies Allergy/AdvReac Type Severity Reaction Status Date / Time No Known Allergies Allergy Verified 12/25/23 17:04 Assessment & Plan Assessment & Plan (1) Schizoaffective disorder, depressive type: Status: Acute Code(s): F25.1 - Schizoaffective disorder, depressive type (2) Dementia: Status: Acute Code(s): F03.90 - Unspecified dementia, unspecified severity, without behavioral disturbance, psychotic disturbance, mood disturbance, and anxiety Plan The patient is an elderly female with a long history of schizophrenia, dementia and several other medical comorbidities was in this unit for psychotic this compensation and transferred to the intermediate facility but later on she had been ammonia and admitted into medical unit the discontinue her antipsychotics and sent back to the intermediate facility that showed psychotic symptoms. Reassessed and transferred back for treatment. Plan 1. The patient is able to contract for safety 15 minute checks. 2. Restart Zyprexa 15 mg p.o. q.h.s. and Risperdal 2 mg p.o. b.i.d.. 3. Continue with medical workout. 4. Reassessment with results. Reason for continued inpatient stay Substantial Risk for: inability to function, rapid decompensation and med/psych decompensation Time Spent With Patient Time: Total time managing care of this patient today __20__ minutes.
[2024-04-29 20:00] VITALS: BP 90/52; PULSE 71; RESP 16; TEMP 36.4; O2SAT 95
[2024-04-29] MEDS: traZODone HCL 50 MG TABLET PO (20:25)
[2024-04-29] MEDS: Atorvastatin Calcium 20 MG TABLET PO (20:25)
[2024-04-29] MEDS: Melatonin 3 MG TABLET 6 MG PO (20:26)
[2024-04-29] MEDS: OLANZapine 7.5 MG TABLET 15 MG PO (20:27)
[2024-04-29 21:41] VITALS: BP 100/58; PULSE 65; RESP 18
[2024-04-30 08:53] VITALS: BP 122/69; PULSE 90; RESP 16; TEMP 36.4; O2SAT 95
[2024-04-30] MEDS: risperiDONE 2 MG TABLET PO ×2 (08:57→19:58)
[2024-04-30] MEDS: amLODIPine Besylate 2.5 MG TABLET 7.5 MG PO (08:57)
[2024-04-30] MEDS: Cholecalciferol (Vitamin D3) 25 MCG TABLET PO (08:57)
[2024-04-30] MEDS: predniSONE 5 MG TABLET 15 MG PO (08:57)
[2024-04-30] MEDS: Fludrocortisone Acetate 0.1 MG TABLET PO ×2 (08:57→19:58)
--- NOTE | 2024-04-30 13:54 | HO.PSYCHPN ---
Subjective Subjective Date of Service: 04/30/24 Reason For Visit: F25, F41.1 Subjective Notes: Conditional Voluntary Healthcare Proxy: Yes Interim History: The nursing staff reported the patient had been compliant with treatment, she reports less auditory hallucinations. She had been pleasant guarded. The public health social worker refer her to [facility], waiting for acceptance. On interview the patient denies new symptoms. Mental Status Exam Mental Status Exam Patient Appearance: Appropriate Patient Orientation: Person and Situation Level of Consciousness: Awake and Appropriate Patient Behavior: Guarded and Passive Mood Description: Withdrawn Affect Description: Constricted Patient Cognition Impaired: Yes Ability to Follow Directions: Good Speech Pattern: Clear Hallucinations: Auditory Delusions: Paranoid Ideation and Ideas of Reference Thought Process: Slowed Thinking Thought Content: positive for [place] and positive for Poverty of Content Judgement: Fair Diagnostics Vital Signs (24Hr): Vital Signs - 24 hr 04/29/24 20:00 04/29/24 21:41 04/30/24 08:53 Temperature 97.6 F 97.5 F Pulse Rate 71 65 90 Respiratory Rate 16 18 16 Blood Pressure 90/52 L 100/58 L 122/69 Pulse Oximetry 95 95 Oxygen Delivery Method Room Air Room Air BMI result Body Mass Index 25.1 Labs 04/23/24 07:47 Medications Medications Current Medications Acetaminophen (Acetaminophen 325 Mg Tablet) 650 mg PO Q6H PRN PRN Reason: Headache/Pain, Scale 1-10 Al Hydroxide/Mg Hydroxide (Magnesium Hydrox/Alum Hydrox 30 Ml Oral.Susp) 30 ml PO Q6H PRN PRN Reason: Heartburn/Nausea Last Admin: 04/24/24 16:43 Dose: 30 ml Amlodipine Besylate (Amlodipine Besylate 2.5 Mg Tablet) 7.5 mg PO DAILY DORIE; Protocol Last Admin: 04/30/24 08:57 Dose: 7.5 mg Atorvastatin Calcium (Atorvastatin Calcium 20 Mg Tablet) 20 mg PO BEDTIME DORIE Last Admin: 04/29/24 20:25 Dose: 20 mg Benzonatate (Benzonatate 100 Mg Capsule) 100 mg PO TID PRN PRN Reason: Cough Fludrocortisone Acetate (Fludrocortisone Acetate 0.1 Mg Tablet) 0.1 mg PO BID [facility] Last Admin: 04/30/24 08:57 Dose: 0.1 mg Hydroxyzine HCl (Hydroxyzine Hcl 25 Mg Tablet) 25 mg PO Q6H PRN PRN Reason: mild anxiety Last Admin: 04/28/24 16:28 Dose: 25 mg Lorazepam (Lorazepam 1 Mg Tablet) 1 mg PO Q4H PRN PRN Reason: agitation Last Admin: 04/28/24 18:15 Dose: 1 mg Magnesium Hydroxide (Milk Of Magnesia 30 Ml Oral.Susp) 30 ml PO DAILY PRN PRN Reason: Constipation Melatonin (Melatonin 3 Mg Tablet) 6 mg PO BEDTIME PRN PRN Reason: Insomnia Last Admin: 04/29/24 20:26 Dose: 6 mg Olanzapine (Olanzapine 7.5 Mg Tablet) 15 mg PO BEDTIME DORIE Last Admin: 04/29/24 20:27 Dose: 15 mg Olanzapine (Olanzapine 5 Mg Tablet) 5 mg PO Q4H PRN PRN Reason: agitation Last Admin: 04/28/24 18:14 Dose: 5 mg Prednisone (Prednisone 5 Mg Tablet) 15 mg PO DAILY [facility] Last Admin: 04/30/24 08:57 Dose: 15 mg Risperidone (Risperidone 2 Mg Tablet) 2 mg PO BID [facility] Last Admin: 04/30/24 08:57 Dose: 2 mg Trazodone HCl (Trazodone Hcl 50 Mg Tablet) 50 mg PO BEDTIME MRX1 PRN PRN Reason: Insomnia Last Admin: 04/29/24 20:25 Dose: 50 mg Vitamin D (Cholecalciferol (Vitamin D3) 25 Mcg Tablet) 25 mcg PO DAILY [facility] Last Admin: 04/30/24 08:57 Dose: 25 mcg Allergies Allergies Allergy/AdvReac Type Severity Reaction Status Date / Time No Known Allergies Allergy Verified 12/25/23 17:04 Assessment & Plan Assessment & Plan (1) Schizoaffective disorder, depressive type: Status: Acute Code(s): F25.1 - Schizoaffective disorder, depressive type (2) Dementia: Status: Acute Code(s): F03.90 - Unspecified dementia, unspecified severity, without behavioral disturbance, psychotic disturbance, mood disturbance, and anxiety Plan The patient is an elderly female with a long history of schizophrenia, dementia and several other medical comorbidities was in this unit for psychotic this compensation and transferred to the snf facility but later on she had been ammonia and admitted into medical unit the discontinue her antipsychotics and sent back to the snf facility that showed psychotic symptoms. Reassessed and transferred back for treatment. Plan 1. The patient is able to contract for safety 15 minute checks. 2. Restart Zyprexa 15 mg p.o. q.h.s. and Risperdal 2 mg p.o. b.i.d.. 3. Continue with medical workout. 4. Reassessment with results. Reason for continued inpatient stay Substantial Risk for: inability to function, rapid decompensation and med/psych decompensation Time Spent With Patient Time: Total time managing care of this patient today _20___ minutes.
[2024-04-30 19:57] VITALS: BP 119/64; PULSE 76; RESP 16; TEMP 36.2; O2SAT 97
[2024-04-30] MEDS: OLANZapine 7.5 MG TABLET 15 MG PO (19:58)
[2024-04-30] MEDS: Atorvastatin Calcium 20 MG TABLET PO (19:58)
[2024-05-01 08:00] VITALS: BP 162/72; PULSE 63; RESP 18; TEMP 36.1; O2SAT 95
[2024-05-01] MEDS: predniSONE 5 MG TABLET 15 MG PO (08:52)
[2024-05-01] MEDS: Fludrocortisone Acetate 0.1 MG TABLET PO ×2 (08:52→19:38)
[2024-05-01] MEDS: risperiDONE 2 MG TABLET PO ×2 (08:52→19:38)
[2024-05-01] MEDS: Cholecalciferol (Vitamin D3) 25 MCG TABLET PO (08:52)
[2024-05-01 08:53] VITALS: BP 162/72
[2024-05-01] MEDS: amLODIPine Besylate 2.5 MG TABLET 7.5 MG PO (08:53)
--- NOTE | 2024-05-01 09:47 | HO.PSYCHPN ---
Subjective Subjective Date of Service: 05/01/24 Reason For Visit: F25, F41.1 Subjective Notes: Conditional Voluntary Interim History: The nursing staff reported the patient had being on her bed most of the time, compliant with treatment vitals since within normal limits. She had been pleasant but internally preoccupied. On interview the patient denies new symptoms, she stated the voices are better. Mental Status Exam Mental Status Exam Patient Appearance: Well Grooomed and Appropriate Patient Orientation: Person and Situation Level of Consciousness: Awake and Appropriate Patient Behavior: Guarded and Passive Mood Description: Withdrawn Affect Description: Constricted Patient Cognition Impaired: Yes Ability to Follow Directions: Good Speech Pattern: Clear Hallucinations: None Delusions: Not Present Thought Process: Distracted and Slowed Thinking Thought Content: positive for [place] and positive for Poverty of Content Judgement: Fair Diagnostics Vital Signs (24Hr): Vital Signs - 24 hr 04/30/24 19:57 05/01/24 08:00 05/01/24 08:53 Temperature 97.2 F 96.9 F Pulse Rate 76 63 Respiratory Rate 16 18 Blood Pressure 119/64 162/72 H 162/72 H Pulse Oximetry 97 95 Oxygen Delivery Method Room Air Room Air BMI result Body Mass Index 25.1 Labs 04/23/24 07:47 Medications Medications Current Medications Acetaminophen (Acetaminophen 325 Mg Tablet) 650 mg PO Q6H PRN PRN Reason: Headache/Pain, Scale 1-10 Al Hydroxide/Mg Hydroxide (Magnesium Hydrox/Alum Hydrox 30 Ml Oral.Susp) 30 ml PO Q6H PRN PRN Reason: Heartburn/Nausea Last Admin: 04/24/24 16:43 Dose: 30 ml Amlodipine Besylate (Amlodipine Besylate 2.5 Mg Tablet) 7.5 mg PO DAILY DORIE; Protocol Last Admin: 05/01/24 08:53 Dose: 7.5 mg Atorvastatin Calcium (Atorvastatin Calcium 20 Mg Tablet) 20 mg PO BEDTIME DORIE Last Admin: 04/30/24 19:58 Dose: 20 mg Benzonatate (Benzonatate 100 Mg Capsule) 100 mg PO TID PRN PRN Reason: Cough Fludrocortisone Acetate (Fludrocortisone Acetate 0.1 Mg Tablet) 0.1 mg PO BID [facility] Last Admin: 05/01/24 08:52 Dose: 0.1 mg Hydroxyzine HCl (Hydroxyzine Hcl 25 Mg Tablet) 25 mg PO Q6H PRN PRN Reason: mild anxiety Last Admin: 04/28/24 16:28 Dose: 25 mg Lorazepam (Lorazepam 1 Mg Tablet) 1 mg PO Q4H PRN PRN Reason: agitation Last Admin: 04/28/24 18:15 Dose: 1 mg Magnesium Hydroxide (Milk Of Magnesia 30 Ml Oral.Susp) 30 ml PO DAILY PRN PRN Reason: Constipation Melatonin (Melatonin 3 Mg Tablet) 6 mg PO BEDTIME PRN PRN Reason: Insomnia Last Admin: 04/29/24 20:26 Dose: 6 mg Olanzapine (Olanzapine 7.5 Mg Tablet) 15 mg PO BEDTIME DORIE Last Admin: 04/30/24 19:58 Dose: 15 mg Olanzapine (Olanzapine 5 Mg Tablet) 5 mg PO Q4H PRN PRN Reason: agitation Last Admin: 04/28/24 18:14 Dose: 5 mg Prednisone (Prednisone 5 Mg Tablet) 15 mg PO DAILY [facility] Last Admin: 05/01/24 08:52 Dose: 15 mg Risperidone (Risperidone 2 Mg Tablet) 2 mg PO BID [facility] Last Admin: 05/01/24 08:52 Dose: 2 mg Trazodone HCl (Trazodone Hcl 50 Mg Tablet) 50 mg PO BEDTIME MRX1 PRN PRN Reason: Insomnia Last Admin: 04/29/24 20:25 Dose: 50 mg Vitamin D (Cholecalciferol (Vitamin D3) 25 Mcg Tablet) 25 mcg PO DAILY [facility] Last Admin: 05/01/24 08:52 Dose: 25 mcg Allergies Allergies Allergy/AdvReac Type Severity Reaction Status Date / Time No Known Allergies Allergy Verified 12/25/23 17:04 Assessment & Plan Assessment & Plan (1) Schizoaffective disorder, depressive type: Status: Acute Code(s): F25.1 - Schizoaffective disorder, depressive type (2) Dementia: Status: Acute Code(s): F03.90 - Unspecified dementia, unspecified severity, without behavioral disturbance, psychotic disturbance, mood disturbance, and anxiety Plan The patient is an elderly female with a long history of schizophrenia, dementia and several other medical comorbidities was in this unit for psychotic this compensation and transferred to the alf facility but later on she had been ammonia and admitted into medical unit the discontinue her antipsychotics and sent back to the alf facility that showed psychotic symptoms. Reassessed and transferred back for treatment. Plan 1. The patient is able to contract for safety 15 minute checks. 2. Restart Zyprexa 15 mg p.o. q.h.s. and Risperdal 2 mg p.o. b.i.d.. 3. Continue with medical workout. 4. Reassessment with results. Reason for continued inpatient stay Substantial Risk for: inability to function, rapid decompensation and med/psych decompensation Time Spent With Patient Time: Total time managing care of this patient today _20___ minutes.
[2024-05-01] MEDS: hydrOXYzine HCL 25 MG TABLET PO (13:41)
[2024-05-01] MEDS: OLANZapine 7.5 MG TABLET 15 MG PO (19:38)
[2024-05-01] MEDS: Atorvastatin Calcium 20 MG TABLET PO (19:38)
[2024-05-01 20:07] VITALS: BP 101/51; PULSE 68; RESP 17; TEMP 36.9; O2SAT 94
[2024-05-02 08:00] VITALS: BP 165/79; PULSE 69; RESP 18; TEMP 36.7; O2SAT 97
[2024-05-02 08:39] VITALS: BP 165/79
[2024-05-02] MEDS: risperiDONE 2 MG TABLET PO ×2 (08:39→20:27)
[2024-05-02] MEDS: amLODIPine Besylate 2.5 MG TABLET 7.5 MG PO (08:39)
[2024-05-02] MEDS: Fludrocortisone Acetate 0.1 MG TABLET PO ×2 (08:40→20:27)
[2024-05-02] MEDS: Cholecalciferol (Vitamin D3) 25 MCG TABLET PO (08:40)
[2024-05-02] MEDS: predniSONE 5 MG TABLET 15 MG PO (08:40)
--- NOTE | 2024-05-02 09:21 | HO.PSYCHPN ---
Subjective Subjective Date of Service: 05/02/24 Reason For Visit: F25, F41.1 Subjective Notes: Conditional Voluntary Healthcare Proxy: Yes Interim History: Pt slept through the night. She presents as pleasant. She reports she hears voices on and off. She reports at time of our conversation she was not hearing voices but reports yesterday she was. Later in the day, she reports feeling anxious, which she does explain is related to hearing voices. She is taking medications as prescribed. VS are stable. Review of Systems Constitutional: Denies body ache(s), Denies chills, Denies fatigue, Denies fever(s) and Denies headache(s) Eyes: Denies change in vision and Denies photophobia Denies headache(s), Denies nasal congestion, Denies nasal discharge and Denies sore throat Cardiovascular: Denies chest pain, Denies rapid heart rate, Denies leg edema, Denies lightheadedness and Denies dyspnea Respiratory: Denies chest congestion, Denies cough, Denies dyspnea and Denies wheezing Gastrointestinal: Denies abdominal pain, Denies GI cramping, Denies diarrhea, Denies nausea and Denies vomiting Musculoskeletal: Denies back pain Skin/Breast: Denies rash Denies headache(s) Psychiatric: Reports as per HPI Endocrine: Denies fatigue Hematologic/Lymphatic: Denies easy bleeding and Denies easy bruising Allergic/Immunologic: Denies wheezing Diagnostics Vital Signs (24Hr): Vital Signs - 24 hr 05/01/24 20:07 05/02/24 08:39 Temperature 98.4 F Pulse Rate 68 Respiratory Rate 17 Blood Pressure 101/51 L 165/79 H Pulse Oximetry 94 Oxygen Delivery Method Room Air BMI result Body Mass Index 25.1 Labs 04/23/24 07:47 Medications Medications Current Medications Acetaminophen (Acetaminophen 325 Mg Tablet) 650 mg PO Q6H PRN PRN Reason: Headache/Pain, Scale 1-10 Al Hydroxide/Mg Hydroxide (Magnesium Hydrox/Alum Hydrox 30 Ml Oral.Susp) 30 ml PO Q6H PRN PRN Reason: Heartburn/Nausea Last Admin: 04/24/24 16:43 Dose: 30 ml Amlodipine Besylate (Amlodipine Besylate 2.5 Mg Tablet) 7.5 mg PO DAILY DORIE; Protocol Last Admin: 05/02/24 08:39 Dose: 7.5 mg Atorvastatin Calcium (Atorvastatin Calcium 20 Mg Tablet) 20 mg PO BEDTIME [facility] Last Admin: 05/01/24 19:38 Dose: 20 mg Benzonatate (Benzonatate 100 Mg Capsule) 100 mg PO TID PRN PRN Reason: Cough Fludrocortisone Acetate (Fludrocortisone Acetate 0.1 Mg Tablet) 0.1 mg PO BID [facility] Last Admin: 05/02/24 08:40 Dose: 0.1 mg Lorazepam (Lorazepam 1 Mg Tablet) 1 mg PO Q4H PRN PRN Reason: agitation Last Admin: 04/28/24 18:15 Dose: 1 mg Magnesium Hydroxide (Milk Of Magnesia 30 Ml Oral.Susp) 30 ml PO DAILY PRN PRN Reason: Constipation Melatonin (Melatonin 3 Mg Tablet) 6 mg PO BEDTIME PRN PRN Reason: Insomnia Last Admin: 04/29/24 20:26 Dose: 6 mg Olanzapine (Olanzapine 7.5 Mg Tablet) 15 mg PO BEDTIME [facility] Last Admin: 05/01/24 19:38 Dose: 15 mg Olanzapine (Olanzapine 5 Mg Tablet) 5 mg PO Q4H PRN PRN Reason: agitation Last Admin: 04/28/24 18:14 Dose: 5 mg Prednisone (Prednisone 5 Mg Tablet) 15 mg PO DAILY [facility] Last Admin: 05/02/24 08:40 Dose: 15 mg Risperidone (Risperidone 2 Mg Tablet) 2 mg PO BID [facility] Last Admin: 05/02/24 08:39 Dose: 2 mg Trazodone HCl (Trazodone Hcl 50 Mg Tablet) 50 mg PO BEDTIME MRX1 PRN PRN Reason: Insomnia Last Admin: 04/29/24 20:25 Dose: 50 mg Vitamin D (Cholecalciferol (Vitamin D3) 25 Mcg Tablet) 25 mcg PO DAILY [facility] Last Admin: 05/02/24 08:40 Dose: 25 mcg Allergies Allergies Allergy/AdvReac Type Severity Reaction Status Date / Time No Known Allergies Allergy Verified 12/25/23 17:04 Assessment & Plan Assessment & Plan (1) Schizoaffective disorder, depressive type: Status: Acute Code(s): F25.1 - Schizoaffective disorder, depressive type (2) Dementia: Status: Acute Code(s): F03.90 - Unspecified dementia, unspecified severity, without behavioral disturbance, psychotic disturbance, mood disturbance, and anxiety Plan The patient is an elderly female with a long history of schizophrenia, dementia and several other medical comorbidities was in this unit for psychotic this compensation and transferred to the retirement facility but later on she had been ammonia and admitted into medical unit the discontinue her antipsychotics and sent back to the retirement facility that showed psychotic symptoms. Reassessed and transferred back for treatment. Plan 05/02 continue tx. Reason for continued inpatient stay Substantial Risk for: inability to function Time Spent With Patient Time: Total time managing care of this patient today ____ minutes.
[2024-05-02 10:06] VITALS: BMI 24.9
[2024-05-02] MEDS: OLANZapine 5 MG TABLET PO (16:51)
[2024-05-02 20:00] VITALS: BP 116/55; PULSE 63; RESP 16; TEMP 36.8; O2SAT 98
[2024-05-02] MEDS: Atorvastatin Calcium 20 MG TABLET PO (20:27)
[2024-05-02] MEDS: OLANZapine 7.5 MG TABLET 15 MG PO (20:27)
[2024-05-03 10:20] VITALS: BP 119/58; PULSE 60; RESP 16; TEMP 36.8; O2SAT 95
[2024-05-03] MEDS: Fludrocortisone Acetate 0.1 MG TABLET PO ×2 (10:21→19:36)
[2024-05-03] MEDS: amLODIPine Besylate 2.5 MG TABLET 7.5 MG PO (10:21)
[2024-05-03] MEDS: predniSONE 5 MG TABLET 15 MG PO (10:22)
[2024-05-03] MEDS: risperiDONE 2 MG TABLET PO ×2 (10:22→19:36)
[2024-05-03] MEDS: Cholecalciferol (Vitamin D3) 25 MCG TABLET PO (10:22)
--- NOTE | 2024-05-03 19:05 | HO.PSYCHPN ---
Subjective Subjective Date of Service: 05/03/24 Reason For Visit: F25, F41.1 Interim History: Pt slept through the night. She presents as pleasant. She reports she hears voices on and off. She reports at time of our conversation she was not hearing voices but reports yesterday she was. Later in the day, she reports feeling anxious, which she does explain is related to hearing voices. She is taking medications as prescribed. VS are stable. Review of Systems Constitutional: Denies body ache(s), Denies chills, Denies fatigue, Denies fever(s) and Denies headache(s) Eyes: Denies change in vision and Denies photophobia Denies headache(s), Denies nasal congestion, Denies nasal discharge and Denies sore throat Cardiovascular: Denies chest pain, Denies rapid heart rate, Denies leg edema, Denies lightheadedness and Denies dyspnea Respiratory: Denies chest congestion, Denies cough, Denies dyspnea and Denies wheezing Gastrointestinal: Denies abdominal pain, Denies GI cramping, Denies diarrhea, Denies nausea and Denies vomiting Musculoskeletal: Denies back pain Skin/Breast: Denies rash Denies headache(s) Psychiatric: Reports as per HPI Endocrine: Denies fatigue Hematologic/Lymphatic: Denies easy bleeding and Denies easy bruising Allergic/Immunologic: Denies wheezing Mental Status Exam Mental Status Exam Narrative: Appearance: wearing casual clothing, pale looking, in NAD Behavior: cooperative Psychomotor: no agitation or retardation noted Speech: clear, normal rate/rhythm/volume, spontaneous TP: linear, poverty of thought TC: feeling safe here Mood: okay Affect: constricted SI: denies HI: denies VH/AH: reports intermittent voices telling that she is going to hell Delusions: paranoid delusions Insight/judgment: impaired x 2. Memory/cog: alert, oriented to fact that she is mental health unit, knows the year and month, vague to situation. Diagnostics Vital Signs (24Hr): Vital Signs - 24 hr 05/02/24 20:00 05/03/24 10:20 Temperature 98.2 F 98.2 F Pulse Rate 63 60 Respiratory Rate 16 16 Blood Pressure 116/55 L 119/58 L Pulse Oximetry 98 95 Oxygen Delivery Method Room Air Room Air BMI result Body Mass Index 24.9 Labs 04/23/24 07:47 Medications Medications Current Medications Acetaminophen (Acetaminophen 325 Mg Tablet) 650 mg PO Q6H PRN PRN Reason: Headache/Pain, Scale 1-10 Al Hydroxide/Mg Hydroxide (Magnesium Hydrox/Alum Hydrox 30 Ml Oral.Susp) 30 ml PO Q6H PRN PRN Reason: Heartburn/Nausea Last Admin: 04/24/24 16:43 Dose: 30 ml Amlodipine Besylate (Amlodipine Besylate 2.5 Mg Tablet) 7.5 mg PO DAILY [facility]; Protocol Last Admin: 05/03/24 10:21 Dose: 7.5 mg Atorvastatin Calcium (Atorvastatin Calcium 20 Mg Tablet) 20 mg PO BEDTIME [facility] Last Admin: 05/02/24 20:27 Dose: 20 mg Benzonatate (Benzonatate 100 Mg Capsule) 100 mg PO TID PRN PRN Reason: Cough Fludrocortisone Acetate (Fludrocortisone Acetate 0.1 Mg Tablet) 0.1 mg PO BID [facility] Last Admin: 05/03/24 10:21 Dose: 0.1 mg Lorazepam (Lorazepam 1 Mg Tablet) 1 mg PO Q4H PRN PRN Reason: agitation Last Admin: 04/28/24 18:15 Dose: 1 mg Magnesium Hydroxide (Milk Of Magnesia 30 Ml Oral.Susp) 30 ml PO DAILY PRN PRN Reason: Constipation Melatonin (Melatonin 3 Mg Tablet) 6 mg PO BEDTIME PRN PRN Reason: Insomnia Last Admin: 04/29/24 20:26 Dose: 6 mg Olanzapine (Olanzapine 7.5 Mg Tablet) 15 mg PO BEDTIME [facility] Last Admin: 05/02/24 20:27 Dose: 15 mg Olanzapine (Olanzapine 5 Mg Tablet) 5 mg PO Q4H PRN PRN Reason: psychosis/moderate anxiety Last Admin: 05/02/24 16:51 Dose: 5 mg Prednisone (Prednisone 5 Mg Tablet) 15 mg PO DAILY [facility] Last Admin: 05/03/24 10:22 Dose: 15 mg Risperidone (Risperidone 2 Mg Tablet) 2 mg PO BID [facility] Last Admin: 05/03/24 10:22 Dose: 2 mg Trazodone HCl (Trazodone Hcl 50 Mg Tablet) 50 mg PO BEDTIME MRX1 PRN PRN Reason: Insomnia Last Admin: 04/29/24 20:25 Dose: 50 mg Vitamin D (Cholecalciferol (Vitamin D3) 25 Mcg Tablet) 25 mcg PO DAILY [facility] Last Admin: 05/03/24 10:22 Dose: 25 mcg Allergies Allergies Allergy/AdvReac Type Severity Reaction Status Date / Time No Known Allergies Allergy Verified 12/25/23 17:04 Assessment & Plan Assessment & Plan (1) Schizoaffective disorder, depressive type: Status: Acute Code(s): F25.1 - Schizoaffective disorder, depressive type (2) Dementia: Status: Acute Code(s): F03.90 - Unspecified dementia, unspecified severity, without behavioral disturbance, psychotic disturbance, mood disturbance, and anxiety Plan The patient is an elderly female with a long history of schizophrenia, dementia and several other medical comorbidities was in this unit for psychotic this compensation and transferred to the detention facility but later on she had been ammonia and admitted into medical unit the discontinue her antipsychotics and sent back to the detention facility that showed psychotic symptoms. Reassessed and transferred back for treatment. Plan 05/02 continue tx. 05/03 continues tx. Reason for continued inpatient stay Substantial Risk for: inability to function Time Spent With Patient Time: Total time managing care of this patient today ____ minutes.
[2024-05-03 19:34] VITALS: BP 119/56; PULSE 77; RESP 16; TEMP 36.8; O2SAT 95
[2024-05-03] MEDS: OLANZapine 7.5 MG TABLET 15 MG PO (19:36)
[2024-05-03] MEDS: Atorvastatin Calcium 20 MG TABLET PO (19:36)
[2024-05-04] MEDS: Benzonatate 100 MG CAPSULE PO (01:15)
[2024-05-04] MEDS: OLANZapine 5 MG TABLET PO ×2 (01:15→16:13)
[2024-05-04 08:00] VITALS: BP 110/56; PULSE 65; RESP 16; TEMP 36; O2SAT 96
[2024-05-04] MEDS: risperiDONE 2 MG TABLET PO ×2 (08:14→19:32)
[2024-05-04] MEDS: Fludrocortisone Acetate 0.1 MG TABLET PO ×2 (08:14→19:32)
[2024-05-04] MEDS: predniSONE 5 MG TABLET 15 MG PO (08:14)
[2024-05-04] MEDS: Cholecalciferol (Vitamin D3) 25 MCG TABLET PO (08:15)
--- NOTE | 2024-05-04 09:59 | PC.NURSE ---
AM Amlodipine held d/t decreased diastolic BP; 110/56, recheck 108/53. Med provider Britney zheng Will continue to monitor.
--- NOTE | 2024-05-04 18:20 | HO.PSYCHPN ---
Subjective Subjective Date of Service: 05/04/24 Reason For Visit: F25, F41.1 Subjective Notes: Conditional Voluntary Interim History: Pt slept through the night. 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 Pt presented as usual, no s/s of respiratory signs but will continue to monitor.BP somewhat volatile, low in the AM, but higher in the evening. No behavioral concerns. She continues to report intermittently hearing voices, not as guarded as previous admission. taking medications. Review of Systems Constitutional: Denies body ache(s), Denies chills, Denies fatigue, Denies fever(s) and Denies headache(s) Eyes: Denies change in vision and Denies photophobia Denies headache(s), Denies nasal congestion, Denies nasal discharge and Denies sore throat Cardiovascular: Denies chest pain, Denies rapid heart rate, Denies leg edema, Denies lightheadedness and Denies dyspnea Respiratory: Denies chest congestion, Denies cough, Denies dyspnea and Denies wheezing Gastrointestinal: Denies abdominal pain, Denies GI cramping, Denies diarrhea, Denies nausea and Denies vomiting Musculoskeletal: Denies back pain Skin/Breast: Denies rash Denies headache(s) Psychiatric: Reports as per HPI Endocrine: Denies fatigue Hematologic/Lymphatic: Denies easy bleeding and Denies easy bruising Allergic/Immunologic: Denies wheezing Mental Status Exam Mental Status Exam Narrative: Appearance: wearing casual clothing, pale looking, in NAD Behavior: cooperative Psychomotor: no agitation or retardation noted Speech: clear, normal rate/rhythm/volume, spontaneous TP: linear, poverty of thought TC: feeling safe here Mood: okay Affect: constricted SI: denies HI: denies VH/AH: reports intermittent voices telling that she is going to hell Delusions: paranoid delusions Insight/judgment: impaired x 2. Memory/cog: alert, oriented to fact that she is mental health unit, knows the year and month, vague to situation. Diagnostics Vital Signs (24Hr): Vital Signs - 24 hr 05/03/24 19:34 05/04/24 08:00 05/04/24 10:39 Temperature 98.2 F 96.8 F Pulse Rate 77 65 Respiratory Rate 16 16 Blood Pressure 119/56 L 110/56 L 110/56 L Pulse Oximetry 95 96 Oxygen Delivery Method Room Air Room Air BMI result Body Mass Index 24.9 Labs 04/23/24 07:47 Medications Medications Current Medications Acetaminophen (Acetaminophen 325 Mg Tablet) 650 mg PO Q6H PRN PRN Reason: Headache/Pain, Scale 1-10 Al Hydroxide/Mg Hydroxide (Magnesium Hydrox/Alum Hydrox 30 Ml Oral.Susp) 30 ml PO Q6H PRN PRN Reason: Heartburn/Nausea Last Admin: 04/24/24 16:43 Dose: 30 ml Amlodipine Besylate (Amlodipine Besylate 2.5 Mg Tablet) 7.5 mg PO DAILY [facility]; Protocol Last Admin: 05/04/24 10:39 Dose: Not Given Atorvastatin Calcium (Atorvastatin Calcium 20 Mg Tablet) 20 mg PO BEDTIME DORIE Last Admin: 05/03/24 19:36 Dose: 20 mg Benzonatate (Benzonatate 100 Mg Capsule) 100 mg PO TID PRN PRN Reason: Cough Last Admin: 05/04/24 01:15 Dose: 100 mg Fludrocortisone Acetate (Fludrocortisone Acetate 0.1 Mg Tablet) 0.1 mg PO BID [facility] Last Admin: 05/04/24 08:14 Dose: 0.1 mg Lorazepam (Lorazepam 1 Mg Tablet) 1 mg PO Q4H PRN PRN Reason: agitation Last Admin: 04/28/24 18:15 Dose: 1 mg Magnesium Hydroxide (Milk Of Magnesia 30 Ml Oral.Susp) 30 ml PO DAILY PRN PRN Reason: Constipation Melatonin (Melatonin 3 Mg Tablet) 6 mg PO BEDTIME PRN PRN Reason: Insomnia Last Admin: 04/29/24 20:26 Dose: 6 mg Olanzapine (Olanzapine 7.5 Mg Tablet) 15 mg PO BEDTIME [facility] Last Admin: 05/03/24 19:36 Dose: 15 mg Olanzapine (Olanzapine 5 Mg Tablet) 5 mg PO Q4H PRN PRN Reason: psychosis/moderate anxiety Last Admin: 05/04/24 16:13 Dose: 5 mg Prednisone (Prednisone 5 Mg Tablet) 15 mg PO DAILY [facility] Last Admin: 05/04/24 08:14 Dose: 15 mg Risperidone (Risperidone 2 Mg Tablet) 2 mg PO BID [facility] Last Admin: 05/04/24 08:14 Dose: 2 mg Trazodone HCl (Trazodone Hcl 50 Mg Tablet) 50 mg PO BEDTIME MRX1 PRN PRN Reason: Insomnia Last Admin: 04/29/24 20:25 Dose: 50 mg Vitamin D (Cholecalciferol (Vitamin D3) 25 Mcg Tablet) 25 mcg PO DAILY DORIE Last Admin: 05/04/24 08:15 Dose: 25 mcg Allergies Allergies Allergy/AdvReac Type Severity Reaction Status Date / Time No Known Allergies Allergy Verified 12/25/23 17:04 Assessment & Plan Assessment & Plan (1) Schizoaffective disorder, depressive type: Status: Acute Code(s): F25.1 - Schizoaffective disorder, depressive type (2) Dementia: Status: Acute Code(s): F03.90 - Unspecified dementia, unspecified severity, without behavioral disturbance, psychotic disturbance, mood disturbance, and anxiety Plan The patient is an elderly female with a long history of schizophrenia, dementia and several other medical comorbidities was in this unit for psychotic this compensation and [facility] but later on she had been ammonia and admitted into medical unit the discontinue her antipsychotics and [facility] to [facility] facility that showed psychotic symptoms. Reassessed and transferred back for treatment. Plan 05/02 continue tx. 05/03 continue tx. 05/04 continue tx. Reason for continued inpatient stay Substantial Risk for: inability to function Time Spent With Patient Time: Total time managing care of this patient today ____ minutes.
[2024-05-04] MEDS: Atorvastatin Calcium 20 MG TABLET PO (19:32)
[2024-05-04] MEDS: traZODone HCL 50 MG TABLET PO (19:32)
[2024-05-04] MEDS: OLANZapine 7.5 MG TABLET 15 MG PO (19:32)
[2024-05-04 19:34] VITALS: BP 173/79; PULSE 100; RESP 18; TEMP 36.3; O2SAT 97
[2024-05-04 20:05] VITALS: BP 173/79
[2024-05-04] MEDS: amLODIPine Besylate 2.5 MG TABLET 7.5 MG PO (20:05)
--- NOTE | 2024-05-04 20:07 | PC.NURSE ---
Patient BP was 173/79, provider notified/ordered to administered daily AM Amlodipine 7.5 mg which was held earlier in the morning.
[2024-05-05 08:00] VITALS: BP 137/65; PULSE 62; RESP 16; TEMP 36.2; O2SAT 98
[2024-05-05] MEDS: Fludrocortisone Acetate 0.1 MG TABLET PO ×2 (08:33→19:38)
[2024-05-05] MEDS: risperiDONE 2 MG TABLET PO ×2 (08:33→19:38)
[2024-05-05] MEDS: predniSONE 5 MG TABLET 15 MG PO (08:33)
[2024-05-05] MEDS: Cholecalciferol (Vitamin D3) 25 MCG TABLET PO (08:34)
[2024-05-05 08:35] VITALS: BP 137/65
[2024-05-05] MEDS: amLODIPine Besylate 2.5 MG TABLET 7.5 MG PO (08:35)
--- NOTE | 2024-05-05 12:18 | HO.PSYCHPN ---
Subjective Subjective Date of Service: 05/05/24 Reason For Visit: F25, F41.1 Subjective Notes: Conditional Voluntary Interim History: Pt slept through the night. Pt continues to report haring voices on and off telling that she will be taken away. No behavioral concerns. She continues to report intermittently hearing voices, not as guarded as previous admission. taking medications. Review of Systems Constitutional: Denies body ache(s), Denies chills, Denies fatigue, Denies fever(s) and Denies headache(s) Eyes: Denies change in vision and Denies photophobia Denies headache(s), Denies nasal congestion, Denies nasal discharge and Denies sore throat Cardiovascular: Denies chest pain, Denies rapid heart rate, Denies leg edema, Denies lightheadedness and Denies dyspnea Respiratory: Denies chest congestion, Denies cough, Denies dyspnea and Denies wheezing Gastrointestinal: Denies abdominal pain, Denies GI cramping, Denies diarrhea, Denies nausea and Denies vomiting Musculoskeletal: Denies back pain Skin/Breast: Denies rash Denies headache(s) Psychiatric: Reports as per HPI Endocrine: Denies fatigue Hematologic/Lymphatic: Denies easy bleeding and Denies easy bruising Allergic/Immunologic: Denies wheezing Mental Status Exam Mental Status Exam Narrative: Appearance: wearing casual clothing, pale looking, in NAD Behavior: cooperative Psychomotor: no agitation or retardation noted Speech: clear, normal rate/rhythm/volume, spontaneous TP: linear, poverty of thought TC: feeling safe here Mood: okay Affect: constricted SI: denies HI: denies VH/AH: reports intermittent voices telling that she is going to hell Delusions: paranoid delusions Insight/judgment: impaired x 2. Memory/cog: alert, oriented to fact that she is mental health unit, knows the year and month, vague to situation. Diagnostics Vital Signs (24Hr): Vital Signs - 24 hr 05/04/24 19:34 05/04/24 20:05 05/05/24 08:00 Temperature 97.4 F 97.2 F Pulse Rate 100 62 Respiratory Rate 18 16 Blood Pressure 173/79 H 173/79 H 137/65 Pulse Oximetry 97 98 Oxygen Delivery Method Room Air Room Air 05/05/24 08:35 Temperature Pulse Rate Respiratory Rate Blood Pressure 137/65 Pulse Oximetry Oxygen Delivery Method BMI result Body Mass Index 24.9 Labs 04/23/24 07:47 Medications Medications Current Medications Acetaminophen (Acetaminophen 325 Mg Tablet) 650 mg PO Q6H PRN PRN Reason: Headache/Pain, Scale 1-10 Al Hydroxide/Mg Hydroxide (Magnesium Hydrox/Alum Hydrox 30 Ml Oral.Susp) 30 ml PO Q6H PRN PRN Reason: Heartburn/Nausea Last Admin: 04/24/24 16:43 Dose: 30 ml Amlodipine Besylate (Amlodipine Besylate 2.5 Mg Tablet) 7.5 mg PO DAILY [facility]; Protocol Last Admin: 05/05/24 08:35 Dose: 7.5 mg Atorvastatin Calcium (Atorvastatin Calcium 20 Mg Tablet) 20 mg PO BEDTIME DORIE Last Admin: 05/04/24 19:32 Dose: 20 mg Benzonatate (Benzonatate 100 Mg Capsule) 100 mg PO TID PRN PRN Reason: Cough Last Admin: 05/04/24 01:15 Dose: 100 mg Fludrocortisone Acetate (Fludrocortisone Acetate 0.1 Mg Tablet) 0.1 mg PO BID [facility] Last Admin: 05/05/24 08:33 Dose: 0.1 mg Lorazepam (Lorazepam 1 Mg Tablet) 1 mg PO Q4H PRN PRN Reason: agitation Last Admin: 04/28/24 18:15 Dose: 1 mg Magnesium Hydroxide (Milk Of Magnesia 30 Ml Oral.Susp) 30 ml PO DAILY PRN PRN Reason: Constipation Melatonin (Melatonin 3 Mg Tablet) 6 mg PO BEDTIME PRN PRN Reason: Insomnia Last Admin: 04/29/24 20:26 Dose: 6 mg Olanzapine (Olanzapine 7.5 Mg Tablet) 15 mg PO BEDTIME DORIE Last Admin: 05/04/24 19:32 Dose: 15 mg Olanzapine (Olanzapine 5 Mg Tablet) 5 mg PO Q4H PRN PRN Reason: psychosis/moderate anxiety Last Admin: 05/04/24 16:13 Dose: 5 mg Prednisone (Prednisone 5 Mg Tablet) 15 mg PO DAILY [facility] Last Admin: 05/05/24 08:33 Dose: 15 mg Risperidone (Risperidone 2 Mg Tablet) 2 mg PO BID [facility] Last Admin: 05/05/24 08:33 Dose: 2 mg Trazodone HCl (Trazodone Hcl 50 Mg Tablet) 50 mg PO BEDTIME MRX1 PRN PRN Reason: Insomnia Last Admin: 05/04/24 19:32 Dose: 50 mg Vitamin D (Cholecalciferol (Vitamin D3) 25 Mcg Tablet) 25 mcg PO DAILY DORIE Last Admin: 05/05/24 08:34 Dose: 25 mcg Allergies Allergies Allergy/AdvReac Type Severity Reaction Status Date / Time No Known Allergies Allergy Verified 12/25/23 17:04 Assessment & Plan Assessment & Plan (1) Schizoaffective disorder, depressive type: Status: Acute Code(s): F25.1 - Schizoaffective disorder, depressive type (2) Dementia: Status: Acute Code(s): F03.90 - Unspecified dementia, unspecified severity, without behavioral disturbance, psychotic disturbance, mood disturbance, and anxiety Plan The patient is an elderly female with a long history of schizophrenia, dementia and several other medical comorbidities was in this unit for psychotic this compensation and transferred to the senior care facility but later on she had been ammonia and admitted into medical unit the discontinue her antipsychotics and sent back to the senior care facility that showed psychotic symptoms. Reassessed and transferred back for treatment. Plan 05/02 continue tx. 05/03 continue tx. 05/04 continue tx. 05/05 continues tx. Reason for continued inpatient stay Substantial Risk for: inability to function Time Spent With Patient Time: Total time managing care of this patient today ____ minutes.
[2024-05-05] MEDS: OLANZapine 5 MG TABLET PO (18:16)
[2024-05-05 19:19] VITALS: BP 138/68; PULSE 73; RESP 16; TEMP 36.6; O2SAT 97
[2024-05-05] MEDS: OLANZapine 7.5 MG TABLET 15 MG PO (19:38)
[2024-05-05] MEDS: Atorvastatin Calcium 20 MG TABLET PO (19:38)
[2024-05-06] MEDS: OLANZapine 5 MG TABLET PO (01:10)
[2024-05-06] MEDS: LORazepam 1 MG TABLET PO (01:10)
[2024-05-06] MEDS: traZODone HCL 50 MG TABLET PO (01:10)
[2024-05-06 08:45] VITALS: BP 113/55; PULSE 58; RESP 18; TEMP 36.5; O2SAT 96
[2024-05-06] MEDS: amLODIPine Besylate 2.5 MG TABLET 7.5 MG PO (09:11)
[2024-05-06] MEDS: predniSONE 5 MG TABLET 15 MG PO (09:12)
[2024-05-06] MEDS: Cholecalciferol (Vitamin D3) 25 MCG TABLET PO (09:12)
[2024-05-06] MEDS: Fludrocortisone Acetate 0.1 MG TABLET PO ×2 (09:12→20:03)
[2024-05-06] MEDS: risperiDONE 2 MG TABLET PO ×2 (09:13→20:03)
--- NOTE | 2024-05-06 10:15 | P.PNPSI_ITS ---
Subjective Subjective Date of Service: 05/06/24 Reason For Visit: F25, F41.1 Interim History: Pt slept through the night. Pt reports doing well overall, she reports intermittent voices on and off. No behavioral concerns. She continues to report intermittently hearing voices, not as guarded as previous admission. taking medications. Review of Systems Constitutional: Denies body ache(s), Denies chills, Denies fatigue, Denies fever(s) and Denies headache(s) Eyes: Denies change in vision and Denies photophobia Denies headache(s), Denies nasal congestion, Denies nasal discharge and Denies sore throat Cardiovascular: Denies chest pain, Denies rapid heart rate, Denies leg edema, Denies lightheadedness and Denies dyspnea Respiratory: Denies chest congestion, Denies cough, Denies dyspnea and Denies wheezing Gastrointestinal: Denies abdominal pain, Denies GI cramping, Denies diarrhea, Denies nausea and Denies vomiting Musculoskeletal: Denies back pain Skin/Breast: Denies rash Denies headache(s) Psychiatric: Reports as per HPI Endocrine: Denies fatigue Hematologic/Lymphatic: Denies easy bleeding and Denies easy bruising Allergic/Immunologic: Denies wheezing Mental Status Exam Mental Status Exam Narrative: Appearance: wearing casual clothing, pale looking, in NAD Behavior: cooperative Psychomotor: no agitation or retardation noted Speech: clear, normal rate/rhythm/volume, spontaneous TP: linear, poverty of thought TC: feeling safe here Mood: okay Affect: constricted SI: denies HI: denies VH/AH: reports intermittent voices telling that she is going to hell Delusions: paranoid delusions Insight/judgment: impaired x 2. Memory/cog: alert, oriented to fact that she is mental health unit, knows the year and month, vague to situation. Diagnostics Vital Signs (24Hr): Vital Signs - 24 hr 05/05/24 19:19 05/06/24 08:45 Temperature 97.9 F 97.7 F Pulse Rate 73 58 Respiratory Rate 16 18 Blood Pressure 138/68 113/55 L Pulse Oximetry 97 96 Oxygen Delivery Method Room Air Room Air BMI result Body Mass Index 24.9 Labs 04/23/24 07:47 Medications Medications Current Medications Acetaminophen (Acetaminophen 325 Mg Tablet) 650 mg PO Q6H PRN PRN Reason: Headache/Pain, Scale 1-10 Al Hydroxide/Mg Hydroxide (Magnesium Hydrox/Alum Hydrox 30 Ml Oral.Susp) 30 ml PO Q6H PRN PRN Reason: Heartburn/Nausea Last Admin: 04/24/24 16:43 Dose: 30 ml Amlodipine Besylate (Amlodipine Besylate 2.5 Mg Tablet) 7.5 mg PO DAILY [facility]; Protocol Last Admin: 05/06/24 09:11 Dose: 7.5 mg Atorvastatin Calcium (Atorvastatin Calcium 20 Mg Tablet) 20 mg PO BEDTIME [facility] Last Admin: 05/05/24 19:38 Dose: 20 mg Benzonatate (Benzonatate 100 Mg Capsule) 100 mg PO TID PRN PRN Reason: Cough Last Admin: 05/04/24 01:15 Dose: 100 mg Fludrocortisone Acetate (Fludrocortisone Acetate 0.1 Mg Tablet) 0.1 mg PO BID [facility] Last Admin: 05/06/24 09:12 Dose: 0.1 mg Lorazepam (Lorazepam 1 Mg Tablet) 1 mg PO Q4H PRN PRN Reason: agitation Last Admin: 05/06/24 01:10 Dose: 1 mg Magnesium Hydroxide (Milk Of Magnesia 30 Ml Oral.Susp) 30 ml PO DAILY PRN PRN Reason: Constipation Melatonin (Melatonin 3 Mg Tablet) 6 mg PO BEDTIME PRN PRN Reason: Insomnia Last Admin: 04/29/24 20:26 Dose: 6 mg Olanzapine (Olanzapine 7.5 Mg Tablet) 15 mg PO BEDTIME [facility] Last Admin: 05/05/24 19:38 Dose: 15 mg Olanzapine (Olanzapine 5 Mg Tablet) 5 mg PO Q4H PRN PRN Reason: psychosis/moderate anxiety Last Admin: 05/06/24 01:10 Dose: 5 mg Prednisone (Prednisone 5 Mg Tablet) 15 mg PO DAILY [facility] Last Admin: 05/06/24 09:12 Dose: 15 mg Risperidone (Risperidone 2 Mg Tablet) 2 mg PO BID [facility] Last Admin: 05/06/24 09:13 Dose: 2 mg Trazodone HCl (Trazodone Hcl 50 Mg Tablet) 50 mg PO BEDTIME MRX1 PRN PRN Reason: Insomnia Last Admin: 05/06/24 01:10 Dose: 50 mg Vitamin D (Cholecalciferol (Vitamin D3) 25 Mcg Tablet) 25 mcg PO DAILY [facility] Last Admin: 05/06/24 09:12 Dose: 25 mcg Allergies Allergies Allergy/AdvReac Type Severity Reaction Status Date / Time No Known Allergies Allergy Verified 12/25/23 17:04 Assessment & Plan Assessment & Plan (1) Schizoaffective disorder, depressive type: Status: Acute Code(s): F25.1 - Schizoaffective disorder, depressive type (2) Dementia: Status: Acute Code(s): F03.90 - Unspecified dementia, unspecified severity, without behavioral disturbance, psychotic disturbance, mood disturbance, and anxiety Plan The patient is an elderly female with a long history of schizophrenia, dementia and several other medical comorbidities was in this unit for psychotic this compensation and transferred to the [facility] facility but later on she had been ammonia and admitted into medical unit the discontinue her antipsychotics and sent back to the [facility] facility that showed psychotic symptoms. Reassessed and transferred back for treatment. Plan 05/02 continue tx. 05/03 continue tx. 05/04 continue tx. 05/05 continues tx. 05/06 continue tx. Reason for continued inpatient stay Substantial Risk for: inability to function Time Spent With Patient Time: Total time managing care of this patient today ____ minutes.
[2024-05-06 20:00] VITALS: BP 148/67; PULSE 84; RESP 16; TEMP 36.4; O2SAT 96
[2024-05-06] MEDS: OLANZapine 7.5 MG TABLET 15 MG PO (20:03)
[2024-05-06] MEDS: Atorvastatin Calcium 20 MG TABLET PO (20:03)
[2024-05-06] MEDS: Benzonatate 100 MG CAPSULE PO (22:40)
[2024-05-07] MEDS: LORazepam 1 MG TABLET PO (02:48)
[2024-05-07] MEDS: OLANZapine 5 MG TABLET PO (02:48)
[2024-05-07 08:29] VITALS: BP 155/77; PULSE 71; RESP 18; TEMP 36.2; O2SAT 96
[2024-05-07] MEDS: amLODIPine Besylate 2.5 MG TABLET 7.5 MG PO (09:12)
[2024-05-07] MEDS: Cholecalciferol (Vitamin D3) 25 MCG TABLET PO (09:12)
[2024-05-07] MEDS: Fludrocortisone Acetate 0.1 MG TABLET PO ×2 (09:13→20:52)
[2024-05-07] MEDS: predniSONE 5 MG TABLET 15 MG PO (09:13)
[2024-05-07] MEDS: risperiDONE 2 MG TABLET PO ×2 (09:13→20:52)
--- NOTE | 2024-05-07 12:36 | P.PNPSI_ITS ---
Subjective Subjective Date of Service: 05/07/24 Reason For Visit: F25, F41.1 Subjective Notes: Conditional Voluntary Healthcare Proxy: Yes Interim History: Pt slept through the night. Pt visible on the unit for meals, not interacting much with peers, but this is her baseline. No behavioral concerns. She continues to report intermittently hearing voices, not as guarded as previous admission. taking medications. Review of Systems Constitutional: Denies body ache(s), Denies chills, Denies fatigue, Denies fever(s) and Denies headache(s) Eyes: Denies change in vision and Denies photophobia Denies headache(s), Denies nasal congestion, Denies nasal discharge and Denies sore throat Cardiovascular: Denies chest pain, Denies rapid heart rate, Denies leg edema, Denies lightheadedness and Denies dyspnea Respiratory: Denies chest congestion, Denies cough, Denies dyspnea and Denies wheezing Gastrointestinal: Denies abdominal pain, Denies GI cramping, Denies diarrhea, Denies nausea and Denies vomiting Musculoskeletal: Denies back pain Skin/Breast: Denies rash Denies headache(s) Psychiatric: Reports as per HPI Endocrine: Denies fatigue Hematologic/Lymphatic: Denies easy bleeding and Denies easy bruising Allergic/Immunologic: Denies wheezing Mental Status Exam Mental Status Exam Narrative: Appearance: wearing casual clothing, pale looking, in NAD Behavior: cooperative Psychomotor: no agitation or retardation noted Speech: clear, normal rate/rhythm/volume, spontaneous TP: linear, poverty of thought TC: feeling safe here Mood: okay Affect: constricted SI: denies HI: denies VH/AH: reports intermittent voices telling that she is going to hell Delusions: paranoid delusions Insight/judgment: impaired x 2. Memory/cog: alert, oriented to fact that she is mental health unit, knows the year and month, vague to situation. Diagnostics Vital Signs (24Hr): Vital Signs - 24 hr 05/06/24 20:00 05/07/24 08:29 Temperature 97.5 F 97.2 F Pulse Rate 84 71 Respiratory Rate 16 18 Blood Pressure 148/67 H 155/77 H Pulse Oximetry 96 96 Oxygen Delivery Method Room Air Room Air BMI result Body Mass Index 24.9 Labs 04/23/24 07:47 Medications Medications Current Medications Acetaminophen (Acetaminophen 325 Mg Tablet) 650 mg PO Q6H PRN PRN Reason: Headache/Pain, Scale 1-10 Al Hydroxide/Mg Hydroxide (Magnesium Hydrox/Alum Hydrox 30 Ml Oral.Susp) 30 ml PO Q6H PRN PRN Reason: Heartburn/Nausea Last Admin: 04/24/24 16:43 Dose: 30 ml Amlodipine Besylate (Amlodipine Besylate 2.5 Mg Tablet) 7.5 mg PO DAILY [facility]; Protocol Last Admin: 05/07/24 09:12 Dose: 7.5 mg Atorvastatin Calcium (Atorvastatin Calcium 20 Mg Tablet) 20 mg PO BEDTIME [facility] Last Admin: 05/06/24 20:03 Dose: 20 mg Benzonatate (Benzonatate 100 Mg Capsule) 100 mg PO TID PRN PRN Reason: Cough Last Admin: 05/06/24 22:40 Dose: 100 mg Fludrocortisone Acetate (Fludrocortisone Acetate 0.1 Mg Tablet) 0.1 mg PO BID [facility] Last Admin: 05/07/24 09:13 Dose: 0.1 mg Lorazepam (Lorazepam 1 Mg Tablet) 1 mg PO Q4H PRN PRN Reason: agitation Last Admin: 05/07/24 02:48 Dose: 1 mg Magnesium Hydroxide (Milk Of Magnesia 30 Ml Oral.Susp) 30 ml PO DAILY PRN PRN Reason: Constipation Melatonin (Melatonin 3 Mg Tablet) 6 mg PO BEDTIME PRN PRN Reason: Insomnia Last Admin: 04/29/24 20:26 Dose: 6 mg Olanzapine (Olanzapine 7.5 Mg Tablet) 15 mg PO BEDTIME [facility] Last Admin: 05/06/24 20:03 Dose: 15 mg Olanzapine (Olanzapine 5 Mg Tablet) 5 mg PO Q4H PRN PRN Reason: psychosis/moderate anxiety Last Admin: 05/07/24 02:48 Dose: 5 mg Prednisone (Prednisone 5 Mg Tablet) 15 mg PO DAILY [facility] Last Admin: 05/07/24 09:13 Dose: 15 mg Risperidone (Risperidone 2 Mg Tablet) 2 mg PO BID [facility] Last Admin: 05/07/24 09:13 Dose: 2 mg Trazodone HCl (Trazodone Hcl 50 Mg Tablet) 50 mg PO BEDTIME MRX1 PRN PRN Reason: Insomnia Last Admin: 05/06/24 01:10 Dose: 50 mg Vitamin D (Cholecalciferol (Vitamin D3) 25 Mcg Tablet) 25 mcg PO DAILY [facility] Last Admin: 05/07/24 09:12 Dose: 25 mcg Allergies Allergies Allergy/AdvReac Type Severity Reaction Status Date / Time No Known Allergies Allergy Verified 12/25/23 17:04 Assessment & Plan Assessment & Plan (1) Schizoaffective disorder, depressive type: Status: Acute Code(s): F25.1 - Schizoaffective disorder, depressive type (2) Dementia: Status: Acute Code(s): F03.90 - Unspecified dementia, unspecified severity, without behavioral disturbance, psychotic disturbance, mood disturbance, and anxiety Plan The patient is an elderly female with a long history of schizophrenia, dementia and several other medical comorbidities was in this unit for psychotic this compensation and transferred to the halfway facility but later on she had been ammonia and admitted into medical unit the discontinue her antipsychotics and sent back to the halfway facility that showed psychotic symptoms. Reassessed and transferred back for treatment. Plan 05/02 continue tx. 05/03 continue tx. 05/04 continue tx. 05/05 continues tx. 05/06 continue tx. 05/07 continue tx. Reason for continued inpatient stay Substantial Risk for: inability to function Time Spent With Patient Time: Total time managing care of this patient today ____ minutes.
[2024-05-07 20:00] VITALS: BP 121/58; PULSE 70; RESP 16; TEMP 36.4; O2SAT 97
[2024-05-07] MEDS: Atorvastatin Calcium 20 MG TABLET PO (20:52)
[2024-05-07] MEDS: OLANZapine 7.5 MG TABLET 15 MG PO (20:52)
[2024-05-08 08:00] VITALS: BP 119/58; PULSE 69; RESP 18; TEMP 36.4; O2SAT 96
[2024-05-08] MEDS: predniSONE 5 MG TABLET 15 MG PO (08:41)
[2024-05-08] MEDS: Fludrocortisone Acetate 0.1 MG TABLET PO ×2 (08:41→20:14)
[2024-05-08] MEDS: Cholecalciferol (Vitamin D3) 25 MCG TABLET PO (08:41)
[2024-05-08] MEDS: risperiDONE 2 MG TABLET PO ×2 (08:41→20:15)
[2024-05-08] MEDS: amLODIPine Besylate 2.5 MG TABLET 7.5 MG PO (08:42)
--- NOTE | 2024-05-08 16:49 | HO.PSYCHPN ---
Subjective Subjective Date of Service: 05/08/24 Reason For Visit: F25, F41.1 Interim History: Pt slept through the night. Pt visible on the unit for meals, not interacting much with peers, but this is her baseline. No behavioral concerns. She continues to report intermittently hearing voices, not as guarded as previous admission. taking medications. Review of Systems Constitutional: Denies body ache(s), Denies chills, Denies fatigue, Denies fever(s) and Denies headache(s) Eyes: Denies change in vision and Denies photophobia Denies headache(s), Denies nasal congestion, Denies nasal discharge and Denies sore throat Cardiovascular: Denies chest pain, Denies rapid heart rate, Denies leg edema, Denies lightheadedness and Denies dyspnea Respiratory: Denies chest congestion, Denies cough, Denies dyspnea and Denies wheezing Gastrointestinal: Denies abdominal pain, Denies GI cramping, Denies diarrhea, Denies nausea and Denies vomiting Musculoskeletal: Denies back pain Skin/Breast: Denies rash Denies headache(s) Psychiatric: Reports as per HPI Endocrine: Denies fatigue Hematologic/Lymphatic: Denies easy bleeding and Denies easy bruising Allergic/Immunologic: Denies wheezing Mental Status Exam Mental Status Exam Narrative: Appearance: wearing casual clothing, pale looking, in NAD Behavior: cooperative Psychomotor: no agitation or retardation noted Speech: clear, normal rate/rhythm/volume, spontaneous TP: linear, poverty of thought TC: feeling safe here Mood: okay Affect: constricted SI: denies HI: denies VH/AH: reports intermittent voices telling that she is going to hell Delusions: paranoid delusions Insight/judgment: impaired x 2. Memory/cog: alert, oriented to fact that she is mental health unit, knows the year and month, vague to situation. Diagnostics Vital Signs (24Hr): Vital Signs - 24 hr 05/07/24 20:00 05/08/24 08:00 Temperature 97.6 F 97.5 F Pulse Rate 70 69 Respiratory Rate 16 18 Blood Pressure 121/58 L 119/58 L Pulse Oximetry 97 96 Oxygen Delivery Method Room Air Room Air BMI result Body Mass Index 24.9 Labs 04/23/24 07:47 Medications Medications Current Medications Acetaminophen (Acetaminophen 325 Mg Tablet) 650 mg PO Q6H PRN PRN Reason: Headache/Pain, Scale 1-10 Al Hydroxide/Mg Hydroxide (Magnesium Hydrox/Alum Hydrox 30 Ml Oral.Susp) 30 ml PO Q6H PRN PRN Reason: Heartburn/Nausea Last Admin: 04/24/24 16:43 Dose: 30 ml Amlodipine Besylate (Amlodipine Besylate 2.5 Mg Tablet) 7.5 mg PO DAILY [facility]; Protocol Last Admin: 05/08/24 08:42 Dose: 7.5 mg Atorvastatin Calcium (Atorvastatin Calcium 20 Mg Tablet) 20 mg PO BEDTIME [facility] Last Admin: 05/07/24 20:52 Dose: 20 mg Benzonatate (Benzonatate 100 Mg Capsule) 100 mg PO TID PRN PRN Reason: Cough Last Admin: 05/06/24 22:40 Dose: 100 mg Fludrocortisone Acetate (Fludrocortisone Acetate 0.1 Mg Tablet) 0.1 mg PO BID [facility] Last Admin: 05/08/24 08:41 Dose: 0.1 mg Lorazepam (Lorazepam 1 Mg Tablet) 1 mg PO Q4H PRN PRN Reason: agitation Last Admin: 05/07/24 02:48 Dose: 1 mg Magnesium Hydroxide (Milk Of Magnesia 30 Ml Oral.Susp) 30 ml PO DAILY PRN PRN Reason: Constipation Melatonin (Melatonin 3 Mg Tablet) 6 mg PO BEDTIME PRN PRN Reason: Insomnia Last Admin: 04/29/24 20:26 Dose: 6 mg Olanzapine (Olanzapine 7.5 Mg Tablet) 15 mg PO BEDTIME [facility] Last Admin: 05/07/24 20:52 Dose: 15 mg Olanzapine (Olanzapine 5 Mg Tablet) 5 mg PO Q4H PRN PRN Reason: psychosis/moderate anxiety Last Admin: 05/07/24 02:48 Dose: 5 mg Prednisone (Prednisone 5 Mg Tablet) 15 mg PO DAILY [facility] Last Admin: 05/08/24 08:41 Dose: 15 mg Risperidone (Risperidone 2 Mg Tablet) 2 mg PO BID [facility] Last Admin: 05/08/24 08:41 Dose: 2 mg Trazodone HCl (Trazodone Hcl 50 Mg Tablet) 50 mg PO BEDTIME MRX1 PRN PRN Reason: Insomnia Last Admin: 05/06/24 01:10 Dose: 50 mg Vitamin D (Cholecalciferol (Vitamin D3) 25 Mcg Tablet) 25 mcg PO DAILY [facility] Last Admin: 05/08/24 08:41 Dose: 25 mcg Allergies Allergies Allergy/AdvReac Type Severity Reaction Status Date / Time No Known Allergies Allergy Verified 12/25/23 17:04 Assessment & Plan Assessment & Plan (1) Schizoaffective disorder, depressive type: Status: Acute Code(s): F25.1 - Schizoaffective disorder, depressive type (2) Dementia: Status: Acute Code(s): F03.90 - Unspecified dementia, unspecified severity, without behavioral disturbance, psychotic disturbance, mood disturbance, and anxiety Plan The patient is an elderly female with a long history of schizophrenia, dementia and several other medical comorbidities was in this unit for psychotic this compensation and transferred to the [facility] facility but later on she had been ammonia and admitted into medical unit the discontinue her antipsychotics and sent back to the [facility] facility that showed psychotic symptoms. Reassessed and transferred back for treatment. Plan 05/02 continue tx. 05/03 continue tx. 05/04 continue tx. 05/05 continues tx. 05/06 continue tx. 05/07 continue tx. 05/08 continue tx. Reason for continued inpatient stay Substantial Risk for: inability to function Time Spent With Patient Time: Total time managing care of this patient today ____ minutes.
[2024-05-08 20:00] VITALS: BP 124/59; PULSE 83; RESP 17; TEMP 37.2; O2SAT 96
[2024-05-08] MEDS: Atorvastatin Calcium 20 MG TABLET PO (20:14)
[2024-05-08] MEDS: OLANZapine 7.5 MG TABLET 15 MG PO (20:15)
[2024-05-09 09:35] VITALS: BP 128/61; PULSE 66; RESP 18; TEMP 36.6; O2SAT 96
[2024-05-09] MEDS: Fludrocortisone Acetate 0.1 MG TABLET PO ×2 (09:53→19:59)
[2024-05-09] MEDS: Cholecalciferol (Vitamin D3) 25 MCG TABLET PO (09:53)
[2024-05-09] MEDS: risperiDONE 2 MG TABLET PO ×2 (09:53→19:58)
[2024-05-09] MEDS: predniSONE 5 MG TABLET 15 MG PO (09:53)
[2024-05-09] MEDS: amLODIPine Besylate 2.5 MG TABLET 7.5 MG PO (09:54)
--- NOTE | 2024-05-09 10:46 | P.PNPSI_ITS ---
Subjective Subjective Date of Service: 05/09/24 Reason For Visit: F25, F41.1 Subjective Notes: Conditional Voluntary Interim History: Patient seen psychiatric follow-up patient has been more isolative dysphoric fearful intrusive auditory hallucinations feels she is being stalked has been afebrile denies shortness breath for burning on urination Medication Compliance: Yes Mental Status Exam Mental Status Exam Narrative: Appearance: wearing casual clothing, pale looking, in NAD Behavior: cooperative sad looking Psychomotor Speech: clear, normal rate/rhythm/volume, spontaneous TP: linear, poverty of thought TC: feeling unsafe Mood: Dysphoric Affect: constricted SI: denies HI: denies VH/AH: reports intermittent voices telling that she is going to hell or looking to killer Delusions: paranoid delusions Insight/judgment: impaired x 2. Memory/cog: alert, oriented to fact that she is mental health unit, knows the year and month, vague to situation. Diagnostics Vital Signs (24Hr): Vital Signs - 24 hr 05/08/24 20:00 05/09/24 09:35 Temperature 98.9 F 97.8 F Pulse Rate 83 66 Respiratory Rate 17 18 Blood Pressure 124/59 L 128/61 Pulse Oximetry 96 96 Oxygen Delivery Method Room Air Room Air BMI result Body Mass Index 24.9 Labs 04/23/24 07:47 Medications Medications Current Medications Acetaminophen (Acetaminophen 325 Mg Tablet) 650 mg PO Q6H PRN PRN Reason: Headache/Pain, Scale 1-10 Al Hydroxide/Mg Hydroxide (Magnesium Hydrox/Alum Hydrox 30 Ml Oral.Susp) 30 ml PO Q6H PRN PRN Reason: Heartburn/Nausea Last Admin: 04/24/24 16:43 Dose: 30 ml Amlodipine Besylate (Amlodipine Besylate 2.5 Mg Tablet) 7.5 mg PO DAILY [facility]; Protocol Last Admin: 05/09/24 09:54 Dose: 7.5 mg Atorvastatin Calcium (Atorvastatin Calcium 20 Mg Tablet) 20 mg PO BEDTIME [facility] Last Admin: 05/08/24 20:14 Dose: 20 mg Benzonatate (Benzonatate 100 Mg Capsule) 100 mg PO TID PRN PRN Reason: Cough Last Admin: 05/06/24 22:40 Dose: 100 mg Fludrocortisone Acetate (Fludrocortisone Acetate 0.1 Mg Tablet) 0.1 mg PO BID [facility] Last Admin: 05/09/24 09:53 Dose: 0.1 mg Lorazepam (Lorazepam 1 Mg Tablet) 1 mg PO Q4H PRN PRN Reason: agitation Last Admin: 05/07/24 02:48 Dose: 1 mg Magnesium Hydroxide (Milk Of Magnesia 30 Ml Oral.Susp) 30 ml PO DAILY PRN PRN Reason: Constipation Melatonin (Melatonin 3 Mg Tablet) 6 mg PO BEDTIME PRN PRN Reason: Insomnia Last Admin: 04/29/24 20:26 Dose: 6 mg Olanzapine (Olanzapine 7.5 Mg Tablet) 15 mg PO BEDTIME [facility] Last Admin: 05/08/24 20:15 Dose: 15 mg Olanzapine (Olanzapine 5 Mg Tablet) 5 mg PO Q4H PRN PRN Reason: psychosis/moderate anxiety Last Admin: 05/07/24 02:48 Dose: 5 mg Prednisone (Prednisone 5 Mg Tablet) 15 mg PO DAILY [facility] Last Admin: 05/09/24 09:53 Dose: 15 mg Risperidone (Risperidone 2 Mg Tablet) 2 mg PO BID [facility] Last Admin: 05/09/24 09:53 Dose: 2 mg Trazodone HCl (Trazodone Hcl 50 Mg Tablet) 50 mg PO BEDTIME MRX1 PRN PRN Reason: Insomnia Last Admin: 05/06/24 01:10 Dose: 50 mg Vitamin D (Cholecalciferol (Vitamin D3) 25 Mcg Tablet) 25 mcg PO DAILY [facility] Last Admin: 05/09/24 09:53 Dose: 25 mcg Allergies Allergies Allergy/AdvReac Type Severity Reaction Status Date / Time No Known Allergies Allergy Verified 12/25/23 17:04 Assessment & Plan Assessment & Plan (1) Schizoaffective disorder, depressive type: Status: Acute Code(s): F25.1 - Schizoaffective disorder, depressive type (2) Dementia: Status: Acute Code(s): F03.90 - Unspecified dementia, unspecified severity, without behavioral disturbance, psychotic disturbance, mood disturbance, and anxiety Plan The patient is an elderly female with a long history of schizophrenia, dementia and several other medical comorbidities was in this unit for psychotic this compensation and transferred to the group home facility but later on she had been ammonia and admitted into medical unit the discontinue her antipsychotics and sent back to the group home facility that showed psychotic symptoms. Reassessed and transferred back for treatment. Plan 05/02 continue tx. 3/7 continue tx. 05/04 continue tx. 05/05 continues tx. 05/06 continue tx. 05/07 continue tx. 05/08 continue tx. 05/09/2024 Increase olanzapine 20 mg patient had been on Clozaril previously continue Risperdal Check CBC metabolic profile UA EKG Reason for continued inpatient stay Substantial Risk for: rapid decompensation and med/psych decompensation Time Spent With Patient Time: Total time managing care of this patient today ____ minutes.
[2024-05-09 11:02] VITALS: BMI 26.2
[2024-05-09] MEDS: Atorvastatin Calcium 20 MG TABLET PO (19:58)
[2024-05-09] MEDS: OLANZapine 10 MG TABLET 20 MG PO (19:59)
[2024-05-09 20:00] VITALS: BP 126/60; PULSE 80; RESP 16; TEMP 37.1; O2SAT 96
--- NOTE | 2024-05-10 08:00 | ECG_ITS ---
Test Reason : CHECK QT Blood Pressure : */* mmHG Vent. Rate : 73 BPM Atrial Rate : 73 BPM P-R Int : 140 ms QRS Dur : 90 ms QT Int : 414 ms P-R-T Axes : 49 35 56 degrees QTcB Int : 456 ms Normal sinus rhythm Nonspecific T wave abnormality Abnormal ECG When compared with ECG of 29-Jan-2024 01:56, No significant change was found Referred By: Blaine Butterfield Electronically Signed By: AUGUSTIN LIMA
[2024-05-10 08:50] VITALS: BP 159/72; PULSE 70; RESP 18; TEMP 36.4; O2SAT 95
[2024-05-10] MEDS: Cholecalciferol (Vitamin D3) 25 MCG TABLET PO (08:52)
[2024-05-10] MEDS: risperiDONE 2 MG TABLET PO ×2 (08:52→20:46)
[2024-05-10] MEDS: Fludrocortisone Acetate 0.1 MG TABLET PO ×2 (08:52→20:46)
[2024-05-10] MEDS: amLODIPine Besylate 2.5 MG TABLET 7.5 MG PO (08:53)
[2024-05-10] MEDS: predniSONE 5 MG TABLET 15 MG PO (08:53)
[2024-05-10 09:19] LABS: MANUAL DIFF FLAG NO
[2024-05-10 09:26] LABS: Appearance Urine Clear; Color Urine Yellow; Glucose Urine UA Negative (Negative); Leukocyte Esterase Urine Negative (Negative); Nitrite Urine Negative (Negative); PH 5.5 (5.0-9.0); Specific Gravity - Urine 1.015 (1.005-1.025); UMIC TRIGGER UACC YES; Urine Blood Trace (Negative); Urine Ketones Negative (Negative); Urine Protein Negative (Neg-Trace)
[2024-05-10 09:28] LABS: Bacteria Urine None Seen (None Seen); Hyaline Casts Urine 0-2 /LPF (0-2); Squamous Epithelial Cell Urine 0-2 /HPF (0-2); WBC Urine 0-5 /HPF (0-5)
[2024-05-10 09:29] LABS: Basophils Percent Auto 0.5 % (0-2); Eosinophils Absolute Auto 0.1 X10*3/uL (0.0-0.4); Eosinophils Percent Auto 1.5 % (0-4); Hematocrit 32.7 % (37.0-47.0); Hemoglobin 11.2 g/dl (12.0-16.0); Imm Gran Abs Auto 0.04 X10*3/uL (0.00-0.03); Imm Gran Pct Auto 0.5 % (0.0-0.4); Lymphocytes Percent Auto 45.2 % (20-40); Mean Corpuscular HGB Conc 34.3 g/dl (31.0-35.0); Mean Corpuscular Hemoglobin 29.5 pg (27.0-33.0); Mean Corpuscular Volume 86.1 fL (80.0-98.0); Mean Platelet Volume 8.8 fL (9.4-12.3); Monocytes Absolute Auto 0.6 X10*3/uL (0.1-1.2); Monocytes Percent Auto 6.6 % (2-11); Neutrophils Percent Auto 45.7 % (45-73); Platelet Count 244 X10*3/uL (160-400); Red Cell Distribution Width 14.5 % (11.0-16.0); White Blood Count 8.8 X10*3/uL (4.8-10.8)
[2024-05-10 09:41] LABS: Alanine Aminotransferase 17 U/L (0-31); Albumin Level 3.1 g/dL (3.5-5.0); Alkaline Phosphatase 73 U/L (39-117); Anion Gap 11 (12-20); Aspartate Amino Transferase 23 U/L (5-31); Bilirubin Total 0.3 mg/dL (0.0-1.0); Blood Urea Nitrogen 19 mg/dL (9-16); Calcium 8.8 mg/dL (8.4-10.2); Carbon Dioxide 27 mmol/L (22-29); Chloride 108 mmol/L (96-108); Creatinine Clr Calc Pharmacy 74.2; Estimated Glomerular Filt Rate > 60; Glucose Fasting 148 mg/dL (60-99); Potassium 3.1 mmol/L (3.3-5.1); Sodium 143 mmol/L (135-145)
--- NOTE | 2024-05-10 11:57 | HO.PSYCHPN ---
Subjective Subjective Date of Service: 05/10/24 Reason For Visit: F25, F41.1 Subjective Notes: Conditional Voluntary Healthcare Proxy: Yes Interim History: Pt slept through the night. She reports voices today are not as bad as yesterday. She denies any physical concerns. She denies SI/HI. keeping to herself. No behavioral concerns. yesterday, cbc, cmp, UA had been ordered as pt presented off noted mild hypokalemia, 3.1, tends to run low, will give potassium cl 20meq, repeat tomorrow. encouraged oral intake to maintain appropriate electrolyte balance. CBC without leukocytosis, chronic normocytic enemia, Stable H&H, UA shows trace of leukocytes, no bacteria, less likely UTI. Review of Systems Constitutional: Denies body ache(s), Denies chills, Denies fatigue, Denies fever(s) and Denies headache(s) Eyes: Denies change in vision and Denies photophobia Denies headache(s), Denies nasal congestion, Denies nasal discharge and Denies sore throat Cardiovascular: Denies chest pain, Denies rapid heart rate, Denies leg edema, Denies lightheadedness and Denies dyspnea Respiratory: Denies chest congestion, Denies cough, Denies dyspnea and Denies wheezing Gastrointestinal: Denies abdominal pain, Denies GI cramping, Denies diarrhea, Denies nausea and Denies vomiting Musculoskeletal: Denies back pain Skin/Breast: Denies rash Denies headache(s) Psychiatric: Reports as per HPI Endocrine: Denies fatigue Hematologic/Lymphatic: Denies easy bleeding and Denies easy bruising Allergic/Immunologic: Denies wheezing Mental Status Exam Mental Status Exam Narrative: Appearance: wearing casual clothing, pale looking, in NAD Behavior: cooperative sad looking Psychomotor Speech: clear, normal rate/rhythm/volume, spontaneous TP: linear, poverty of thought TC: feeling unsafe Mood: Dysphoric Affect: constricted SI: denies HI: denies VH/AH: reports intermittent voices telling that she is going to hell or looking to killer Delusions: paranoid delusions Insight/judgment: impaired x 2. Memory/cog: alert, oriented to fact that she is mental health unit, knows the year and month, vague to situation. Diagnostics Vital Signs (24Hr): Vital Signs - 24 hr 05/09/24 20:00 05/10/24 08:50 Temperature 98.7 F 97.5 F Pulse Rate 80 70 Respiratory Rate 16 18 Blood Pressure 126/60 159/72 H Pulse Oximetry 96 95 Oxygen Delivery Method Room Air Room Air BMI result Body Mass Index 26.2 Labs 05/10/24 09:14 05/10/24 09:14 Labs: Laboratory Results - last 48 hr 05/10/24 05/10/24 09:00 09:14 WBC 8.8 RBC 3.80 L Hgb 11.2 L Hct 32.7 L MCV 86.1 MCH 29.5 MCHC 34.3 RDW 14.5 Plt Count 244 MPV 8.8 L Immature Gran % (Auto) 0.5 H Neut % (Auto) 45.7 Lymph % (Auto) 45.2 H [place] % (Auto) 6.6 Eos % (Auto) 1.5 Baso % (Auto) 0.5 Lymph # (Auto) 4.0 [place] # (Auto) 0.6 Eos # (Auto) 0.1 Baso # (Auto) 0.0 Abs Immat Gran (auto) 0.04 H Absolute Neuts (auto) 4.0 Absolute Nucleated RBC 0.000 Nucleated RBC % (auto) 0.0 Sodium 143 Potassium 3.1 L Chloride 108 Carbon Dioxide 27 Anion Gap 11 L BUN 19 H Creatinine 0.63 Estim Creat Clear Calc 74.2 Estimated GFR > 60 Fasting Glucose 148 H Calcium 8.8 Total Bilirubin 0.3 AST 23 ALT 17 Alkaline Phosphatase 73 Total Protein 6.0 L Albumin 3.1 L Urine Color Yellow Urine Appearance Clear Urine pH 5.5 Ur Specific [place] 1.015 Urine Protein Negative Urine Glucose (UA) Negative Urine Ketones Negative Urine Blood Trace H Urine Nitrite Negative Ur Leukocyte Esterase Negative Urine RBC 3-5 H Urine WBC 0-5 Ur Squamous Epith Cells 0-2 Urine Bacteria None Seen Hyaline Casts 0-2 Medications Medications Current Medications Acetaminophen (Acetaminophen 325 Mg Tablet) 650 mg PO Q6H PRN PRN Reason: Headache/Pain, Scale 1-10 Al Hydroxide/Mg Hydroxide (Magnesium Hydrox/Alum Hydrox 30 Ml Oral.Susp) 30 ml PO Q6H PRN PRN Reason: Heartburn/Nausea Last Admin: 04/24/24 16:43 Dose: 30 ml Amlodipine Besylate (Amlodipine Besylate 2.5 Mg Tablet) 7.5 mg PO DAILY [facility]; Protocol Last Admin: 05/10/24 08:53 Dose: 7.5 mg Atorvastatin Calcium (Atorvastatin Calcium 20 Mg Tablet) 20 mg PO BEDTIME [facility] Last Admin: 05/09/24 19:58 Dose: 20 mg Benzonatate (Benzonatate 100 Mg Capsule) 100 mg PO TID PRN PRN Reason: Cough Last Admin: 05/06/24 22:40 Dose: 100 mg Fludrocortisone Acetate (Fludrocortisone Acetate 0.1 Mg Tablet) 0.1 mg PO BID [facility] Last Admin: 05/10/24 08:52 Dose: 0.1 mg Lorazepam (Lorazepam 1 Mg Tablet) 1 mg PO Q4H PRN PRN Reason: agitation Last Admin: 05/07/24 02:48 Dose: 1 mg Magnesium Hydroxide (Milk Of Magnesia 30 Ml Oral.Susp) 30 ml PO DAILY PRN PRN Reason: Constipation Melatonin (Melatonin 3 Mg Tablet) 6 mg PO BEDTIME PRN PRN Reason: Insomnia Last Admin: 04/29/24 20:26 Dose: 6 mg Olanzapine (Olanzapine 5 Mg Tablet) 5 mg PO Q4H PRN PRN Reason: psychosis/moderate anxiety Last Admin: 05/07/24 02:48 Dose: 5 mg Olanzapine (Olanzapine 10 Mg Tablet) 20 mg PO BEDTIME [facility] Last Admin: 05/09/24 19:59 Dose: 20 mg Prednisone (Prednisone 5 Mg Tablet) 15 mg PO DAILY [facility] Last Admin: 05/10/24 08:53 Dose: 15 mg Risperidone (Risperidone 2 Mg Tablet) 2 mg PO BID [facility] Last Admin: 05/10/24 08:52 Dose: 2 mg Trazodone HCl (Trazodone Hcl 50 Mg Tablet) 50 mg PO BEDTIME MRX1 PRN PRN Reason: Insomnia Last Admin: 05/06/24 01:10 Dose: 50 mg Vitamin D (Cholecalciferol (Vitamin D3) 25 Mcg Tablet) 25 mcg PO DAILY [facility] Last Admin: 05/10/24 08:52 Dose: 25 mcg Allergies Allergies Allergy/AdvReac Type Severity Reaction Status Date / Time No Known Allergies Allergy Verified 12/25/23 17:04 Assessment & Plan Assessment & Plan (1) Schizoaffective disorder, depressive type: Status: Acute Code(s): F25.1 - Schizoaffective disorder, depressive type (2) Dementia: Status: Acute Code(s): F03.90 - Unspecified dementia, unspecified severity, without behavioral disturbance, psychotic disturbance, mood disturbance, and anxiety Plan The patient is an elderly female with a long history of schizophrenia, dementia and several other medical comorbidities was in this unit for psychotic this compensation and transferred to the alf facility but later on she had been ammonia and admitted into medical unit the discontinue her antipsychotics and sent back to the alf facility that showed psychotic symptoms. Reassessed and transferred back for treatment. Plan 05/02 continue tx. 05/03 continue tx. 05/04 continue tx. 05/05 continues tx. 05/06 continue tx. 05/07 continue tx. 05/08 continue tx. 05/09/2024 Increase olanzapine 20 mg patient had been on Clozaril previously continue Risperdal Check CBC metabolic profile UA EKG 05/10 continue current tx. yesterday, cbc, cmp, UA had been ordered as pt presented off noted mild hypokalemia, 3.1, tends to run low, will give potassium cl 20meq, repeat tomorrow. encouraged oral intake to maintain appropriate electrolyte balance. CBC without leukocytosis, chronic normocytic enemia, Stable H&H, UA shows trace of leukocytes, no bacteria, less likely UTI. Reason for continued inpatient stay Substantial Risk for: inability to function Time Spent With Patient Time: Total time managing care of this patient today ____ minutes.
[2024-05-10] MEDS: Potassium Chloride ER 10 MEQ TABLET.ER PO (13:17)
[2024-05-10 20:00] VITALS: BP 135/63; PULSE 74; RESP 16; TEMP 36.1; O2SAT 94
[2024-05-10] MEDS: OLANZapine 10 MG TABLET 20 MG PO (20:46)
[2024-05-10] MEDS: Atorvastatin Calcium 20 MG TABLET PO (20:46)
[2024-05-11 07:45] LABS: Anion Gap 13 (12-20); Blood Urea Nitrogen 19 mg/dL (9-16); Calcium 9.1 mg/dL (8.4-10.2); Carbon Dioxide 25 mmol/L (22-29); Chloride 108 mmol/L (96-108); Creatinine Clr Calc Pharmacy 79.3; Estimated Glomerular Filt Rate > 60; Glucose Random 91 mg/dL (60-115); Potassium 3.6 mmol/L (3.3-5.1); Sodium 142 mmol/L (135-145)
[2024-05-11 08:25] VITALS: BP 97/47; PULSE 58; RESP 18; TEMP 36.4; O2SAT 97
[2024-05-11] MEDS: predniSONE 5 MG TABLET 15 MG PO (08:33)
[2024-05-11 08:34] VITALS: BP 139/64
[2024-05-11] MEDS: amLODIPine Besylate 2.5 MG TABLET 7.5 MG PO (08:34)
[2024-05-11 08:38] VITALS: BP 139/64; PULSE 69
[2024-05-11] MEDS: Fludrocortisone Acetate 0.1 MG TABLET PO ×2 (08:40→20:22)
[2024-05-11] MEDS: Cholecalciferol (Vitamin D3) 25 MCG TABLET PO (08:40)
[2024-05-11] MEDS: risperiDONE 2 MG TABLET PO ×2 (08:41→20:21)
--- NOTE | 2024-05-11 11:04 | HO.PSYCHPN ---
Subjective Subjective Date of Service: 05/11/24 Reason For Visit: F25, F41.1 Subjective Notes: Conditional Voluntary Healthcare Proxy: Yes Interim History: Patient seen psychiatric follow-up chart review patient seen. Patient is stating she is having less fear a decrease in auditory hallucinations Medication Compliance: Yes Mental Status Exam Mental Status Exam Narrative: Appearance: wearing casual clothing, pale looking, in NAD Behavior: cooperative sad looking Psychomotor Speech: clear, normal rate/rhythm/volume, spontaneous TP: linear, poverty of thought TC: feeling unsafe Mood: Dysphoric Affect: constricted SI: denies HI: denies VH/AH: reports intermittent voices telling that she is going to hell or looking to killer Delusions: paranoid delusions Insight/judgment: impaired x 2. Memory/cog: alert, oriented to fact that she is mental health unit, knows the year and month, vague to situation. Diagnostics Vital Signs (24Hr): Vital Signs - 24 hr 05/10/24 20:00 05/11/24 08:25 05/11/24 08:34 Temperature 97 F 97.5 F Pulse Rate 74 58 Respiratory Rate 16 18 Blood Pressure 135/63 97/47 L 139/64 Pulse Oximetry 94 97 Oxygen Delivery Method Room Air Room Air 05/11/24 08:38 Temperature Pulse Rate 69 Respiratory Rate Blood Pressure 139/64 Pulse Oximetry Oxygen Delivery Method BMI result Body Mass Index 26.2 Labs 05/10/24 09:14 05/11/24 07:12 Labs: Laboratory Results - last 48 hr 05/10/24 05/10/24 05/11/24 09:00 09:14 07:12 WBC 8.8 RBC 3.80 L Hgb 11.2 L Hct 32.7 L MCV 86.1 MCH 29.5 MCHC 34.3 RDW 14.5 Plt Count 244 MPV 8.8 L Immature Gran % (Auto) 0.5 H Neut % (Auto) 45.7 Lymph % (Auto) 45.2 H [place] % (Auto) 6.6 Eos % (Auto) 1.5 Baso % (Auto) 0.5 Lymph # (Auto) 4.0 [place] # (Auto) 0.6 Eos # (Auto) 0.1 Baso # (Auto) 0.0 Abs Immat Gran (auto) 0.04 H Absolute Neuts (auto) 4.0 Absolute Nucleated RBC 0.000 Nucleated RBC % (auto) 0.0 Sodium 143 142 Potassium 3.1 L 3.6 Chloride 108 108 Carbon Dioxide 27 25 Anion Gap 11 L 13 BUN 19 H 19 H Creatinine 0.63 0.59 Estim Creat Clear Calc 74.2 79.3 Estimated GFR > 60 > 60 Random Glucose 91 Fasting Glucose 148 H Calcium 8.8 9.1 Total Bilirubin 0.3 AST 23 ALT 17 Alkaline Phosphatase 73 Total Protein 6.0 L Albumin 3.1 L Urine Color Yellow Urine Appearance Clear Urine pH 5.5 Ur Specific [place] 1.015 Urine Protein Negative Urine Glucose (UA) Negative Urine Ketones Negative Urine Blood Trace H Urine Nitrite Negative Ur Leukocyte Esterase Negative Urine RBC 3-5 H Urine WBC 0-5 Ur Squamous Epith Cells 0-2 Urine Bacteria None Seen Hyaline Casts 0-2 Medications Medications Current Medications Acetaminophen (Acetaminophen 325 Mg Tablet) 650 mg PO Q6H PRN PRN Reason: Headache/Pain, Scale 1-10 Al Hydroxide/Mg Hydroxide (Magnesium Hydrox/Alum Hydrox 30 Ml Oral.Susp) 30 ml PO Q6H PRN PRN Reason: Heartburn/Nausea Last Admin: 04/24/24 16:43 Dose: 30 ml Amlodipine Besylate (Amlodipine Besylate 2.5 Mg Tablet) 7.5 mg PO DAILY DORIE; Protocol Last Admin: 05/11/24 08:34 Dose: 7.5 mg Atorvastatin Calcium (Atorvastatin Calcium 20 Mg Tablet) 20 mg PO BEDTIME [facility] Last Admin: 05/10/24 20:46 Dose: 20 mg Benzonatate (Benzonatate 100 Mg Capsule) 100 mg PO TID PRN PRN Reason: Cough Last Admin: 05/06/24 22:40 Dose: 100 mg Fludrocortisone Acetate (Fludrocortisone Acetate 0.1 Mg Tablet) 0.1 mg PO BID DORIE Last Admin: 05/11/24 08:40 Dose: 0.1 mg Lorazepam (Lorazepam 1 Mg Tablet) 1 mg PO Q4H PRN PRN Reason: agitation Last Admin: 05/07/24 02:48 Dose: 1 mg Magnesium Hydroxide (Milk Of Magnesia 30 Ml Oral.Susp) 30 ml PO DAILY PRN PRN Reason: Constipation Melatonin (Melatonin 3 Mg Tablet) 6 mg PO BEDTIME PRN PRN Reason: Insomnia Last Admin: 04/29/24 20:26 Dose: 6 mg Olanzapine (Olanzapine 5 Mg Tablet) 5 mg PO Q4H PRN PRN Reason: psychosis/moderate anxiety Last Admin: 05/07/24 02:48 Dose: 5 mg Olanzapine (Olanzapine 10 Mg Tablet) 20 mg PO BEDTIME [facility] Last Admin: 05/10/24 20:46 Dose: 20 mg Prednisone (Prednisone 5 Mg Tablet) 15 mg PO DAILY [facility] Last Admin: 05/11/24 08:33 Dose: 15 mg Risperidone (Risperidone 2 Mg Tablet) 2 mg PO BID [facility] Last Admin: 05/11/24 08:41 Dose: 2 mg Trazodone HCl (Trazodone Hcl 50 Mg Tablet) 50 mg PO BEDTIME MRX1 PRN PRN Reason: Insomnia Last Admin: 05/06/24 01:10 Dose: 50 mg Vitamin D (Cholecalciferol (Vitamin D3) 25 Mcg Tablet) 25 mcg PO DAILY [facility] Last Admin: 05/11/24 08:40 Dose: 25 mcg Allergies Allergies Allergy/AdvReac Type Severity Reaction Status Date / Time No Known Allergies Allergy Verified 12/25/23 17:04 Assessment & Plan Assessment & Plan (1) Schizoaffective disorder, depressive type: Status: Acute Code(s): F25.1 - Schizoaffective disorder, depressive type (2) Dementia: Status: Acute Code(s): F03.90 - Unspecified dementia, unspecified severity, without behavioral disturbance, psychotic disturbance, mood disturbance, and anxiety Plan The patient is an elderly female with a long history of schizophrenia, dementia and several other medical comorbidities was in this unit for psychotic this compensation and transferred to the prison facility but later on she had been ammonia and admitted into medical unit the discontinue her antipsychotics and sent back to the prison facility that showed psychotic symptoms. Reassessed and transferred back for treatment. Plan 05/02 continue tx. 05/03 continue tx. 05/04 continue tx. 05/05 continues tx. 05/06 continue tx. 05/07 continue tx. 05/08 continue tx. 05/09/2024 Increase olanzapine 20 mg patient had been on Clozaril previously continue Risperdal Check CBC metabolic profile UA EKG 05/10 continue current tx. yesterday, cbc, cmp, UA had been ordered as pt presented off noted mild hypokalemia, 3.1, tends to run low, will give potassium cl 20meq, repeat tomorrow. encouraged oral intake to maintain appropriate electrolyte balance. CBC without leukocytosis, chronic normocytic enemia, Stable H&H, UA shows trace of leukocytes, no bacteria, less likely UTI. 05/11/2024 Patient on increased olanzapine no sign of medical difficulty Patient educated on: diagnosis and medication risk/benefits Informed Consent: further education needed Reason for continued inpatient stay Substantial Risk for: inability to function and rapid decompensation Time Spent With Patient Time: Total time managing care of this patient today ____ minutes.
[2024-05-11] MEDS: Acetaminophen 325 MG TABLET 650 MG PO (17:54)
--- NOTE | 2024-05-11 19:10 | PC.NURSE ---
Patient asked PSA to have sex with her and sat on his lap. Zyprexa 5mg given PO.
[2024-05-11] MEDS: OLANZapine 5 MG TABLET PO (19:12)
[2024-05-11 20:00] VITALS: BP 127/67; PULSE 98; RESP 16; TEMP 36.7; O2SAT 95
[2024-05-11] MEDS: OLANZapine 10 MG TABLET 20 MG PO (20:21)
[2024-05-11] MEDS: Atorvastatin Calcium 20 MG TABLET PO (20:21)
[2024-05-12 08:00] VITALS: BP 109/58; PULSE 62; RESP 16; TEMP 36.3; O2SAT 95
[2024-05-12] MEDS: predniSONE 5 MG TABLET 15 MG PO (08:40)
[2024-05-12] MEDS: Cholecalciferol (Vitamin D3) 25 MCG TABLET PO (08:40)
[2024-05-12] MEDS: amLODIPine Besylate 2.5 MG TABLET 7.5 MG PO (08:41)
[2024-05-12] MEDS: Fludrocortisone Acetate 0.1 MG TABLET PO ×2 (08:41→20:40)
[2024-05-12] MEDS: risperiDONE 2 MG TABLET PO ×2 (08:42→20:41)
[2024-05-12 20:00] VITALS: BP 112/59; PULSE 77; RESP 18; TEMP 36.8; O2SAT 94
[2024-05-12] MEDS: Atorvastatin Calcium 20 MG TABLET PO (20:40)
[2024-05-12] MEDS: traZODone HCL 50 MG TABLET PO (20:40)
[2024-05-12] MEDS: OLANZapine 10 MG TABLET 20 MG PO (20:40)
--- NOTE | 2024-05-12 23:23 | HO.PSYCHPN ---
Subjective Subjective Date of Service: 05/12/24 Reason For Visit: F25, F41.1 Subjective Notes: Conditional Voluntary Healthcare Proxy: Yes Interim History: Patient seen psychiatric follow-up chart review patient seen. Patient is stating she is having less fear a decrease in auditory hallucinations was more irritable reactive Medication Compliance: Yes Mental Status Exam Mental Status Exam Narrative: Appearance: wearing casual clothing, pale looking, in NAD Behavior: cooperative sad looking Psychomotor Speech: clear, normal rate/rhythm/volume, spontaneous TP: linear, poverty of thought TC: feeling unsafe Mood: Angry irritable Affect: constricted SI: denies HI: denies VH/AH: reports intermittent voices telling that she is going to hell or looking to killer Delusions: paranoid delusions Insight/judgment: impaired x 2. Memory/cog: alert, oriented to fact that she is mental health unit, knows the year and month, vague to situation. Diagnostics Vital Signs (24Hr): Vital Signs - 24 hr 05/12/24 08:00 05/12/24 20:00 Temperature 97.3 F 98.2 F Pulse Rate 62 77 Respiratory Rate 16 18 Blood Pressure 109/58 L 112/59 L Pulse Oximetry 95 94 Oxygen Delivery Method Room Air Room Air BMI result Body Mass Index 26.2 Labs 05/10/24 09:14 05/11/24 07:12 Labs: Laboratory Results - last 48 hr 05/11/24 07:12 Sodium 142 Potassium 3.6 Chloride 108 Carbon Dioxide 25 Anion Gap 13 BUN 19 H Creatinine 0.59 Estim Creat Clear Calc 79.3 Estimated GFR > 60 Random Glucose 91 Calcium 9.1 Medications Medications Current Medications Acetaminophen (Acetaminophen 325 Mg Tablet) 650 mg PO Q6H PRN PRN Reason: Headache/Pain, Scale 1-10 Last Admin: 05/11/24 17:54 Dose: 650 mg Al Hydroxide/Mg Hydroxide (Magnesium Hydrox/Alum Hydrox 30 Ml Oral.Susp) 30 ml PO Q6H PRN PRN Reason: Heartburn/Nausea Last Admin: 04/24/24 16:43 Dose: 30 ml Amlodipine Besylate (Amlodipine Besylate 2.5 Mg Tablet) 7.5 mg PO DAILY DORIE; Protocol Last Admin: 05/12/24 08:41 Dose: 7.5 mg Atorvastatin Calcium (Atorvastatin Calcium 20 Mg Tablet) 20 mg PO BEDTIME [facility]ORIE Last Admin: 05/12/24 20:40 Dose: 20 mg Benzonatate (Benzonatate 100 Mg Capsule) 100 mg PO TID PRN PRN Reason: Cough Last Admin: 05/06/24 22:40 Dose: 100 mg Fludrocortisone Acetate (Fludrocortisone Acetate 0.1 Mg Tablet) 0.1 mg PO BID DORIE Last Admin: 05/12/24 20:40 Dose: 0.1 mg Lorazepam (Lorazepam 1 Mg Tablet) 1 mg PO Q4H PRN PRN Reason: agitation Last Admin: 05/07/24 02:48 Dose: 1 mg Magnesium Hydroxide (Milk Of Magnesia 30 Ml Oral.Susp) 30 ml PO DAILY PRN PRN Reason: Constipation Melatonin (Melatonin 3 Mg Tablet) 6 mg PO BEDTIME PRN PRN Reason: Insomnia Last Admin: 04/29/24 20:26 Dose: 6 mg Olanzapine (Olanzapine 5 Mg Tablet) 5 mg PO Q4H PRN PRN Reason: psychosis/moderate anxiety Last Admin: 05/11/24 19:12 Dose: 5 mg Olanzapine (Olanzapine 10 Mg Tablet) 20 mg PO BEDTIME [facility]OR[facility] Last Admin: 05/12/24 20:40 Dose: 20 mg Prednisone (Prednisone 5 Mg Tablet) 15 mg PO DAILY [facility] Last Admin: 05/12/24 08:40 Dose: 15 mg Risperidone (Risperidone 2 Mg Tablet) 2 mg PO BID [facility] Last Admin: 05/12/24 20:41 Dose: 2 mg Trazodone HCl (Trazodone Hcl 50 Mg Tablet) 50 mg PO BEDTIME MRX1 PRN PRN Reason: Insomnia Last Admin: 05/12/24 20:40 Dose: 50 mg Vitamin D (Cholecalciferol (Vitamin D3) 25 Mcg Tablet) 25 mcg PO DAILY [facility] Last Admin: 05/12/24 08:40 Dose: 25 mcg Allergies Allergies Allergy/AdvReac Type Severity Reaction Status Date / Time No Known Allergies Allergy Verified 12/25/23 17:04 Assessment & Plan Assessment & Plan (1) Schizoaffective disorder, depressive type: Status: Acute Code(s): F25.1 - Schizoaffective disorder, depressive type (2) Dementia: Status: Acute Code(s): F03.90 - Unspecified dementia, unspecified severity, without behavioral disturbance, psychotic disturbance, mood disturbance, and anxiety Plan The patient is an elderly female with a long history of schizophrenia, dementia and several other medical comorbidities was in this unit for psychotic this compensation and transferred to the prison facility but later on she had been ammonia and admitted into medical unit the discontinue her antipsychotics and sent back to the prison facility that showed psychotic symptoms. Reassessed and transferred back for treatment. Plan 05/02 continue tx. 05/03 continue tx. 05/04 continue tx. 05/05 continues tx. 05/06 continue tx. 05/07 continue tx. 05/08 continue tx. 05/09/2024 Increase olanzapine 20 mg patient had been on Clozaril previously continue Risperdal Check CBC metabolic profile UA EKG 05/10 continue current tx. yesterday, cbc, cmp, UA had been ordered as pt presented off noted mild hypokalemia, 3.1, tends to run low, will give potassium cl 20meq, repeat tomorrow. encouraged oral intake to maintain appropriate electrolyte balance. CBC without leukocytosis, chronic normocytic enemia, Stable H&H, UA shows trace of leukocytes, no bacteria, less likely UTI. 05/11/2024 Patient on increased olanzapine no sign of medical difficulty 05/12/2024 Continue plan of care Reason for continued inpatient stay Substantial Risk for: inability to function and rapid decompensation Time Spent With Patient Time: Total time managing care of this patient today ____ minutes.
[2024-05-13 08:00] VITALS: BP 115/57; PULSE 63; RESP 18; TEMP 36.3; O2SAT 96
[2024-05-13] MEDS: Cholecalciferol (Vitamin D3) 25 MCG TABLET PO (08:37)
[2024-05-13] MEDS: amLODIPine Besylate 2.5 MG TABLET 7.5 MG PO (08:38)
[2024-05-13] MEDS: predniSONE 5 MG TABLET 15 MG PO (08:38)
[2024-05-13] MEDS: risperiDONE 2 MG TABLET PO ×2 (08:39→20:12)
[2024-05-13] MEDS: Fludrocortisone Acetate 0.1 MG TABLET PO ×2 (08:39→20:12)
--- NOTE | 2024-05-13 12:13 | P.PNPSI_ITS ---
Subjective Subjective Date of Service: 05/13/24 Reason For Visit: F25, F41.1 Subjective Notes: Conditional Voluntary Guardianship: Yes Interim History: Pt slept most of the night. She continues to intermittently report hearing voices. She also reports feeling dizzy. She denies SI/HI. She is eating and visible for meals. She is taking medications as prescribed. In the past, increase in antipsychotic with alpha adrenergic properties did cause more severe dizziness, which then led to patient stopping medications completely. Medication Compliance: Yes Side effects from medications: No Review of Systems Constitutional: Denies body ache(s), Denies chills, Denies fatigue, Denies fever(s) and Denies headache(s) Eyes: Denies change in vision and Denies photophobia Denies headache(s), Denies nasal congestion, Denies nasal discharge and Denies sore throat Cardiovascular: Denies chest pain, Denies rapid heart rate, Denies leg edema, Denies lightheadedness and Denies dyspnea Respiratory: Denies chest congestion, Denies cough, Denies dyspnea and Denies wheezing Gastrointestinal: Denies abdominal pain, Denies GI cramping, Denies diarrhea, Denies nausea and Denies vomiting Musculoskeletal: Denies back pain Skin/Breast: Denies rash Denies headache(s) Psychiatric: Reports as per HPI Endocrine: Denies fatigue Hematologic/Lymphatic: Denies easy bleeding and Denies easy bruising Allergic/Immunologic: Denies wheezing Mental Status Exam Mental Status Exam Narrative: Appearance: wearing casual clothing, pale looking, in NAD Behavior: cooperative sad looking Psychomotor Speech: clear, normal rate/rhythm/volume, spontaneous TP: linear, poverty of thought TC: feeling unsafe Mood: Angry irritable Affect: constricted SI: denies HI: denies VH/AH: reports intermittent voices telling that she is going to hell or looking to killer Delusions: paranoid delusions Insight/judgment: impaired x 2. Memory/cog: alert, oriented to fact that she is mental health unit, knows the year and month, vague to situation. Diagnostics Vital Signs (24Hr): Vital Signs - 24 hr 05/12/24 20:00 05/13/24 08:00 Temperature 98.2 F 97.3 F Pulse Rate 77 63 Respiratory Rate 18 18 Blood Pressure 112/59 L 115/57 L Pulse Oximetry 94 96 Oxygen Delivery Method Room Air Room Air BMI result Body Mass Index 26.2 Labs 05/10/24 09:14 05/11/24 07:12 Medications Medications Current Medications Acetaminophen (Acetaminophen 325 Mg Tablet) 650 mg PO Q6H PRN PRN Reason: Headache/Pain, Scale 1-10 Last Admin: 05/11/24 17:54 Dose: 650 mg Al Hydroxide/Mg Hydroxide (Magnesium Hydrox/Alum Hydrox 30 Ml Oral.Susp) 30 ml PO Q6H PRN PRN Reason: Heartburn/Nausea Last Admin: 04/24/24 16:43 Dose: 30 ml Amlodipine Besylate (Amlodipine Besylate 2.5 Mg Tablet) 7.5 mg PO DAILY [facility]; Protocol Last Admin: 05/13/24 08:38 Dose: 7.5 mg Atorvastatin Calcium (Atorvastatin Calcium 20 Mg Tablet) 20 mg PO BEDTIME [facility]OR[facility] Last Admin: 05/12/24 20:40 Dose: 20 mg Benzonatate (Benzonatate 100 Mg Capsule) 100 mg PO TID PRN PRN Reason: Cough Last Admin: 05/06/24 22:40 Dose: 100 mg Fludrocortisone Acetate (Fludrocortisone Acetate 0.1 Mg Tablet) 0.1 mg PO BID [facility] Last Admin: 05/13/24 08:39 Dose: 0.1 mg Lorazepam (Lorazepam 1 Mg Tablet) 1 mg PO Q4H PRN PRN Reason: agitation Last Admin: 05/07/24 02:48 Dose: 1 mg Magnesium Hydroxide (Milk Of Magnesia 30 Ml Oral.Susp) 30 ml PO DAILY PRN PRN Reason: Constipation Melatonin (Melatonin 3 Mg Tablet) 6 mg PO BEDTIME PRN PRN Reason: Insomnia Last Admin: 04/29/24 20:26 Dose: 6 mg Olanzapine (Olanzapine 5 Mg Tablet) 5 mg PO Q4H PRN PRN Reason: psychosis/moderate anxiety Last Admin: 05/11/24 19:12 Dose: 5 mg Olanzapine (Olanzapine 10 Mg Tablet) 20 mg PO BEDTIME [facility] Last Admin: 05/12/24 20:40 Dose: 20 mg Prednisone (Prednisone 5 Mg Tablet) 15 mg PO DAILY [facility] Last Admin: 05/13/24 08:38 Dose: 15 mg Risperidone (Risperidone 2 Mg Tablet) 2 mg PO BID [facility] Last Admin: 05/13/24 08:39 Dose: 2 mg Trazodone HCl (Trazodone Hcl 50 Mg Tablet) 50 mg PO BEDTIME MRX1 PRN PRN Reason: Insomnia Last Admin: 05/12/24 20:40 Dose: 50 mg Vitamin D (Cholecalciferol (Vitamin D3) 25 Mcg Tablet) 25 mcg PO DAILY [facility]ORIE Last Admin: 05/13/24 08:37 Dose: 25 mcg Allergies Allergies Allergy/AdvReac Type Severity Reaction Status Date / Time No Known Allergies Allergy Verified 12/25/23 17:04 Assessment & Plan Assessment & Plan (1) Schizoaffective disorder, depressive type: Status: Acute Code(s): F25.1 - Schizoaffective disorder, depressive type (2) Dementia: Status: Acute Code(s): F03.90 - Unspecified dementia, unspecified severity, without behavioral disturbance, psychotic disturbance, mood disturbance, and anxiety Plan The patient is an elderly female with a long history of schizophrenia, dementia and several other medical comorbidities was in this unit for psychotic this compensation and transferred [facility] the [facility] facility but later on she had been ammonia and admitted into medical unit the discontinue her antipsychotics and sent back to the penitentiary facility that showed psychotic symptoms. Reassessed and transferred back for treatment. Plan 05/02 continue tx. 05/03 continue tx. 05/04 continue tx. 05/05 continues tx. 05/06 continue tx. 05/07 continue tx. 05/08 continue tx. 05/09/2024 Increase olanzapine 20 mg patient had been on Clozaril previously continue Risperdal Check CBC metabolic profile UA EKG 05/10 continue current tx. yesterday, cbc, cmp, UA had been ordered as pt presented off noted mild hypokalemia, 3.1, tends to run low, will give potassium cl 20meq, repeat tomorrow. encouraged oral intake to maintain appropriate electrolyte balance. CBC without leukocytosis, chronic normocytic enemia, Stable H&H, UA shows trace of leukocytes, no bacteria, less likely UTI. 05/11/2024 Patient on increased olanzapine no sign of medical difficulty 05/12/2024 Continue plan of care 05/13 continue tx. Reason for continued inpatient stay Substantial Risk for: inability to function Time Spent With Patient Time: Total time managing care of this patient today ____ minutes.
[2024-05-13] MEDS: OLANZapine 5 MG TABLET PO (14:16)
[2024-05-13] MEDS: LORazepam 1 MG TABLET PO (14:16)
[2024-05-13 20:00] VITALS: BP 128/60; PULSE 96; RESP 18; TEMP 36.8; O2SAT 96
[2024-05-13] MEDS: Atorvastatin Calcium 20 MG TABLET PO (20:12)
[2024-05-13] MEDS: OLANZapine 10 MG TABLET 20 MG PO (20:12)
[2024-05-14 08:40] VITALS: BP 133/64; PULSE 63; RESP 18; TEMP 36.3; O2SAT 98
[2024-05-14] MEDS: Fludrocortisone Acetate 0.1 MG TABLET PO ×2 (08:43→20:18)
[2024-05-14] MEDS: risperiDONE 2 MG TABLET PO ×2 (08:43→20:18)
[2024-05-14] MEDS: predniSONE 5 MG TABLET 15 MG PO (08:43)
[2024-05-14] MEDS: amLODIPine Besylate 2.5 MG TABLET 7.5 MG PO (08:43)
[2024-05-14] MEDS: Cholecalciferol (Vitamin D3) 25 MCG TABLET PO (08:43)
[2024-05-14] MEDS: OLANZapine 5 MG TABLET PO (11:44)
--- NOTE | 2024-05-14 19:09 | P.PNPSI_ITS ---
Subjective Subjective Date of Service: 05/14/24 Reason For Visit: F25, F41.1 Subjective Notes: Conditional Voluntary Interim History: Pt slept most of the night. She reports doing well. She states she has not heard voices today but they come and go. No SI/HI. She is eating well. No behavioral concerns. Medication Compliance: Yes Review of Systems Constitutional: Denies body ache(s), Denies chills, Denies fatigue, Denies fever(s) and Denies headache(s) Eyes: Denies change in vision and Denies photophobia Denies headache(s), Denies nasal congestion, Denies nasal discharge and Denies sore throat Cardiovascular: Denies chest pain, Denies rapid heart rate, Denies leg edema, Denies lightheadedness and Denies dyspnea Respiratory: Denies chest congestion, Denies cough, Denies dyspnea and Denies wheezing Gastrointestinal: Denies abdominal pain, Denies GI cramping, Denies diarrhea, Denies nausea and Denies vomiting Musculoskeletal: Denies back pain Skin/Breast: Denies rash Denies headache(s) Psychiatric: Reports as per HPI Endocrine: Denies fatigue Hematologic/Lymphatic: Denies easy bleeding and Denies easy bruising Allergic/Immunologic: Denies wheezing Mental Status Exam Mental Status Exam Narrative: Appearance: wearing casual clothing, pale looking, in NAD Behavior: cooperative sad looking Psychomotor Speech: clear, normal rate/rhythm/volume, spontaneous TP: linear, poverty of thought TC: wanting to rest Mood: good Affect: constricted SI: denies HI: denies VH/AH: reports intermittent voices telling that she is going to hell Delusions: less paranoid delusions Insight/judgment: impaired x 2. Memory/cog: alert, oriented to fact that she is mental health unit, knows the year and month, vague to situation. Diagnostics Vital Signs (24Hr): Vital Signs - 24 hr 05/13/24 20:00 05/14/24 08:40 Temperature 98.2 F 97.4 F Pulse Rate 96 63 Respiratory Rate 18 18 Blood Pressure 128/60 133/64 Pulse Oximetry 96 98 Oxygen Delivery Method Room Air Room Air BMI result Body Mass Index 26.2 Labs 05/10/24 09:14 05/11/24 07:12 Medications Medications Current Medications Acetaminophen (Acetaminophen 325 Mg Tablet) 650 mg PO Q6H PRN PRN Reason: Headache/Pain, Scale 1-10 Last Admin: 05/11/24 17:54 Dose: 650 mg Al Hydroxide/Mg Hydroxide (Magnesium Hydrox/Alum Hydrox 30 Ml Oral.Susp) 30 ml PO Q6H PRN PRN Reason: Heartburn/Nausea Last Admin: 04/24/24 16:43 Dose: 30 ml Amlodipine Besylate (Amlodipine Besylate 2.5 Mg Tablet) 7.5 mg PO DAILY [facility], [facility]; Protocol Last Admin: 05/14/24 08:43 Dose: 7.5 mg Atorvastatin Calcium (Atorvastatin Calcium 20 Mg Tablet) 20 mg PO BEDTIME DORIE Last Admin: 05/13/24 20:12 Dose: 20 mg Benzonatate (Benzonatate 100 Mg Capsule) 100 mg PO TID PRN PRN Reason: Cough Last Admin: 05/06/24 22:40 Dose: 100 mg Fludrocortisone Acetate (Fludrocortisone Acetate 0.1 Mg Tablet) 0.1 mg PO BID [facility] Last Admin: 05/14/24 08:43 Dose: 0.1 mg Lorazepam (Lorazepam 1 Mg Tablet) 1 mg PO Q4H PRN PRN Reason: agitation Last Admin: 05/13/24 14:16 Dose: 1 mg Magnesium Hydroxide (Milk Of Magnesia 30 Ml Oral.Susp) 30 ml PO DAILY PRN PRN Reason: Constipation Melatonin (Melatonin 3 Mg Tablet) 6 mg PO BEDTIME PRN PRN Reason: Insomnia Last Admin: 04/29/24 20:26 Dose: 6 mg Olanzapine (Olanzapine 5 Mg Tablet) 5 mg PO Q4H PRN PRN Reason: psychosis/moderate anxiety Last Admin: 05/13/24 14:16 Dose: 5 mg Olanzapine (Olanzapine 10 Mg Tablet) 20 mg PO BEDTIME DORIE Last Admin: 05/13/24 20:12 Dose: 20 mg Olanzapine (Olanzapine 5 Mg Tablet) 5 mg PO DAILY [facility] Last Admin: 05/14/24 11:44 Dose: 5 mg Prednisone (Prednisone 5 Mg Tablet) 15 mg PO DAILY [facility] Last Admin: 05/14/24 08:43 Dose: 15 mg Risperidone (Risperidone 2 Mg Tablet) 2 mg PO BID [facility] Last Admin: 05/14/24 08:43 Dose: 2 mg Trazodone HCl (Trazodone Hcl 50 Mg Tablet) 50 mg PO BEDTIME MRX1 PRN PRN Reason: Insomnia Last Admin: 05/12/24 20:40 Dose: 50 mg Vitamin D (Cholecalciferol (Vitamin D3) 25 Mcg Tablet) 25 mcg PO DAILY DORIE Last Admin: 05/14/24 08:43 Dose: 25 mcg Allergies Allergies Allergy/AdvReac Type Severity Reaction Status Date / Time No Known Allergies Allergy Verified 12/25/23 17:04 Assessment & Plan Assessment & Plan (1) Schizoaffective disorder, depressive type: Status: Acute Code(s): F25.1 - Schizoaffective disorder, depressive type (2) Dementia: Status: Acute Code(s): F03.90 - Unspecified dementia, unspecified severity, without behavioral disturbance, psychotic disturbance, mood disturbance, and anxiety Plan The patient is an elderly female with a long history of schizophrenia, dementia and several other medical comorbidities was in this unit for psychotic this compensation and transferred to the nursing home facility but later on she had been ammonia and admitted into medical unit the discontinue her antipsychotics and sent back to the nursing home facility that showed psychotic symptoms. Reassessed and transferred back for treatment. Plan 05/02 continue tx. 05/03 continue tx. 05/04 continue tx. 05/05 continues tx. 05/06 continue tx. 05/07 continue tx. 05/08 continue tx. 05/09/2024 Increase olanzapine 20 mg patient had been on Clozaril previously continue Risperdal Check CBC metabolic profile UA EKG 05/10 continue current tx. yesterday, cbc, cmp, UA had been ordered as pt presented off noted mild hypokalemia, 3.1, tends to run low, will give potassium cl 20meq, repeat tomorrow. encouraged oral intake to maintain appropriate electrolyte balance. CBC without leukocytosis, chronic normocytic enemia, Stable H&H, UA shows trace of leukocytes, no bacteria, less likely UTI. 05/11/2024 Patient on increased olanzapine no sign of medical difficulty 05/12/2024 Continue plan of care 05/13 continue tx. 05/14 continue tx. dc tomorrow. Reason for continued inpatient stay Substantial Risk for: inability to function Time Spent With Patient Time: Total time managing care of this patient today ____ minutes.
[2024-05-14 20:00] VITALS: BP 116/57; PULSE 72; TEMP 36.8; O2SAT 94
[2024-05-14] MEDS: Atorvastatin Calcium 20 MG TABLET PO (20:18)
[2024-05-14] MEDS: OLANZapine 10 MG TABLET 20 MG PO (20:18)
[2024-05-14] MEDS: traZODone HCL 50 MG TABLET PO (21:52)
--- NOTE | 2024-05-15 06:55 | PM.PSYDC ---
DS: Providers Provider Date of Service: 05/15/24 Date of admission: 04/22/24 16:01 Date of discharge: 05/15/24 Primary care physician: None Physician Consults: 04/22/24 16:16 Consult to Hospitalist Routine Comment: Consulting Provider: [facility] Hospitalists Reason For Exam: Direct admission Discharging clinician: Britney Nuñez DS: Diagnosis Discharge Diagnosis (1) Schizoaffective disorder, depressive type: Status: Acute (2) Dementia: Status: Acute DS: Medications Discharge Medications Home Medications: Previous Rx's ?Medication ?Instructions ?Recorded acetaminophen 325 mg tablet 650 mg (2 x 325 mg) PO Q6H PRN 05/15/24 Headache/Pain, Scale 1-10 #0 tabs amlodipine 2.5 mg tablet 7.5 mg PO DAILY #0 tabs 05/15/24 atorvastatin 20 mg tablet 20 mg PO BEDTIME #0 tabs 05/15/24 cholecalciferol (vitamin D3) 25 25 mcg PO DAILY #0 tabs 05/15/24 mcg (1,000 unit) tablet fludrocortisone 0.1 mg tablet 0.1 mg PO BID #0 tabs 05/15/24 melatonin 3 mg tablet 6 mg (2 x 3 mg) PO BEDTIME PRN 05/15/24 Insomnia #0 tabs olanzapine 10 mg tablet 20 mg (2 x 10 mg) PO BEDTIME #0 05/15/24 tabs olanzapine 5 mg tablet 5 mg PO DAILY #0 tabs 05/15/24 prednisone 5 mg tablet 15 mg (3 x 5 mg) PO DAILY #0 tabs 05/15/24 risperidone 2 mg tablet 2 mg PO BID #0 tabs 05/15/24 trazodone 50 mg tablet 50 mg PO BEDTIME PRN Insomnia #0 05/15/24 tabs Mental Status Exam Mental Status Exam Narrative: Appearance: wearing casual clothing, pale looking, in NAD Behavior: cooperative sad looking Psychomotor Speech: clear, normal rate/rhythm/volume, spontaneous TP: linear, poverty of thought TC: wanting to rest Mood: good Affect: constricted SI: denies HI: denies VH/AH: reports intermittent voices telling that she is going to hell Delusions: less paranoid delusions Insight/judgment: impaired x 2. Memory/cog: alert, oriented to fact that she is mental health unit, knows the year and month, vague to situation. Data Data Completed and Pending Completed studies during hospitalization [Text1]: 05/10/24 05/10/24 05/11/24 09:00 09:14 07:12 WBC 8.8 RBC 3.80 L Hgb 11.2 L Hct 32.7 L MCV 86.1 MCH 29.5 MCHC 34.3 RDW 14.5 Plt Count 244 MPV 8.8 L Immature Gran % (Auto) 0.5 H Neut % (Auto) 45.7 Lymph % (Auto) 45.2 H [place] % (Auto) 6.6 Eos % (Auto) 1.5 Baso % (Auto) 0.5 Lymph # (Auto) 4.0 [place] # (Auto) 0.6 Eos # (Auto) 0.1 Baso # (Auto) 0.0 Abs Immat Gran (auto) 0.04 H Absolute Neuts (auto) 4.0 Absolute Nucleated RBC 0.000 Nucleated RBC % (auto) 0.0 Sodium 143 142 Potassium 3.1 L 3.6 Chloride 108 108 Carbon Dioxide 27 25 Anion Gap 11 L 13 BUN 19 H 19 H Creatinine 0.63 0.59 Estim Creat Clear Calc 74.2 79.3 Estimated GFR > 60 > 60 Random Glucose 91 Fasting Glucose 148 H Calcium 8.8 9.1 Total Bilirubin 0.3 AST 23 ALT 17 Alkaline Phosphatase 73 Total Protein 6.0 L Albumin 3.1 L Urine Color Yellow Urine Appearance Clear Urine pH 5.5 Ur Specific [place] 1.015 Urine Protein Negative Urine Glucose (UA) Negative Urine Ketones Negative Urine Blood Trace H Urine Nitrite Negative Ur Leukocyte Esterase Negative Urine RBC 3-5 H Urine WBC 0-5 Ur Squamous Epith Cells 0-2 Urine Bacteria None Seen Hyaline Casts 0-2 DS: Summary Hospital Course Hospital Course: The patient is a 73-year-old female with a long history of schizophrenia, who was admitted into this facility until 2 weeks ago that she was discharged to detention facility. While she was over there, she developed pneumonia and she was rushed to the emergency room treated on a local medical unit and discharged back to her detention facility without antipsychotics. According to the crisis assessment, the patient decompensate very fast she was not wearing clothes and she was intrusive. She was rushed back to the emergency room assessed by crisis and transferring to this facility for psychiatric stabilization. While she was in the emergency room, the patient was restarted on Risperdal and Zyprexa. On the intake interview the patient reports that she is feeling much better, no evidence of new symptoms she denies auditory hallucinations but looks internally preoccupied. We will restart with a regular Zyprexa and Risperdal and reassess. The patient is a very poor historian due to her cognitive impairment able to contract for safety in the facility. Past Psychiatric History: Past psychiatric hospitalizations, most recently 08/17/2023 and the last one here 2 weeks ago Medical Evaluation Reviewed: Yes HOSPITAL COURSE Ms. Vela was admitted on a CV and placed on 15 minutes checks for safety. Ms. Mayer initially came to [facility] on 12/26/2023 when she presented with paranoid delusions, command auditory hallucinations telling her to either hurt others or smear feces. She has been trial on a total of 3 antipsychotics, including olanzapine, risperidone and clozapine. She initially had trial of risperidone alone and olanzapine monotherapy which offered partial therapeutic effect. She was than trial on clozaril but she had severe orthostatic HOTN and medication was discontinued. She was later trial on combination of risperidone and olanzapine. Behavioral changes seen with current medication regimen include less paranoid delusions towards staff and providers. She is more visible for meals. Her thought process although with poverty of thought, is more organized. She does report intermittent auditory hallucinations but these are not command in nature. There has not been any incidents of disruptive behaviors, nor need for restraints. She is has been eating and sleeping well. Status at Discharge Cognitive/behavioral status at discharge: Pt with constricted affect at baseline. No SI/HI. Intermittent auditory hallucinations. No command hallucinations. Less paranoid delusions. She is taking medications as prescribed. Sleeping and eating well. No aggression towards self or others. Functional status at discharge: independent ambulation Overall status at discharge: patient is back to baseline Time Spent with Patient Time attestation: Total time managing care of this patient today __45__ minutes. Time spent: Greater than 30 minutes Discharge Plan Discharge Anticipated Discharge Date/Time: 05/15/24 06:47 Patient Disposition: Home, Self-Care Discharge Diagnosis: schizophrenia Referrals: Physician,None [Primary Care Provider] - 1 Week Discharge Medications: New amlodipine 2.5 mg Tablet 7.5 mg PO DAILY Qty: 0 0RF Protocol: Hold for SBP< HOLD for SBP < : 90 acetaminophen 325 mg Tablet 650 mg PO Q6H PRN (Reason: Headache/Pain, Scale 1-10) Qty: 0 0RF atorvastatin 20 mg Tablet 20 mg PO BEDTIME Qty: 0 0RF olanzapine 10 mg Tablet 20 mg PO BEDTIME Qty: 0 0RF trazodone 50 mg Tablet 50 mg PO BEDTIME PRN (Reason: Insomnia) Qty: 0 0RF prednisone 5 mg Tablet 15 mg PO DAILY Qty: 0 0RF olanzapine 5 mg Tablet 5 mg PO DAILY Qty: 0 0RF melatonin 3 mg Tablet 6 mg PO BEDTIME PRN (Reason: Insomnia) Qty: 0 0RF risperidone 2 mg Tablet 2 mg PO BID Qty: 0 0RF fludrocortisone 0.1 mg Tablet 0.1 mg PO BID Qty: 0 0RF cholecalciferol (vitamin D3) 25 mcg (1,000 unit) Tablet 25 mcg PO DAILY Qty: 0 0RF Discontinued olanzapine [Zyprexa Zydis] 15 mg Tablet,Disintegrating 15 mg PO BEDTIME atorvastatin 20 mg tablet 20 mg PO BEDTIME acetaminophen 325 mg Tablet 650 mg PO Q4H PRN (Reason: Pain/Fever) acetaminophen 650 mg Suppository 650 mg [place] Q4H PRN (Reason: Pain/Fever) magnesium hydroxide [Milk of Magnesia] 400 mg/5 mL Suspension 30 ml PO DAILY PRN (Reason: Constipation) Fleet Enema 19-7 gram/118 mL Enema 118 ml [place] DAILY PRN (Reason: Constipation) risperidone 1 mg Tablet 1 mg PO BID PRN (Reason: Increased Delusions/Agitation) benzonatate 100 mg Capsule 100 mg PO Q8H PRN (Reason: Cough) bisacodyl 10 mg Suppository 10 mg [place] DAILY PRN (Reason: Constipation) prednisone 5 mg Tablet 15 mg PO DAILY 30 Days Qty: 90 0RF melatonin 3 mg Tablet 6 mg PO BEDTIME PRN (Reason: Insomnia) 30 Days Qty: 30 0RF fludrocortisone 0.1 mg Tablet 0.1 mg PO BID 30 Days Qty: 60 0RF cholecalciferol (vitamin D3) 25 mcg (1,000 unit) Tablet 25 mcg PO DAILY 30 Days Qty: 30 0RF Discharge Orders: Discharge Order (Routine); Ordered 05/15/24 Ordered By: Britney Nuñez Diet: Low salt diet Activity on Discharge: As tolerated Stand Alone Forms: Patient Portal Discharge page Print Language: Cymraes Care Plan Goals: maintain mood No SI/HI No aggression towards self or others Health Concerns: follow up with new PCP for routine care Plan of Treatment: take medications as prescribed Assessment: pt with constricted affect. No SI/HI. Intermittent VH/AH. Less paranoid delusions. No aggression towards self or others.
[2024-05-15 08:00] VITALS: BP 128/70; PULSE 68; RESP 18; TEMP 36.4; O2SAT 98
[2024-05-15] MEDS: predniSONE 5 MG TABLET 15 MG PO (08:14)
[2024-05-15] MEDS: amLODIPine Besylate 2.5 MG TABLET 7.5 MG PO (08:15)
[2024-05-15] MEDS: Cholecalciferol (Vitamin D3) 25 MCG TABLET PO (08:15)
[2024-05-15] MEDS: risperiDONE 2 MG TABLET PO (08:16)
[2024-05-15] MEDS: Fludrocortisone Acetate 0.1 MG TABLET PO (08:16)
[2024-05-15] MEDS: OLANZapine 5 MG TABLET PO (08:16)
== END 2024-05-15 10:40 | disposition home or self-care (01) | DRG 885 ==
PROVIDERS: Physician Assistant; Psychiatry & Neurology Psychiatry; Social Worker; Admitting Provider Psychiatry & Neurology Psychiatry; Visit Provider Psychiatry & Neurology Psychiatry
DX: F20.0 Paranoid schizophrenia (principal); E87.6 Hypokalemia; F03.90 Unspecified dementia, unspecified severity, without behavioral disturbance, psychotic disturbance, mood disturbance, and anxiety; E78.5 Hyperlipidemia, unspecified; I77.1 Stricture of artery; I10 Essential (primary) hypertension; Z79.52 Long term (current) use of systemic steroids; Z79.899 Other long term (current) drug therapy
CPT/HCPCS: 36415; 80048; 80053; 80061; 81001; 83735; 85025; 93005

== ENCOUNTER → 2024-04-22 16:01 | Outpatient (BNV) | payer MEDICARE, MEDICAID, SELFPAY | PROVIDERS: Admitting Provider Psychiatry & Neurology Psychiatry; Visit Provider Physician Assistant | DX: Z00.8 Encounter for other general examination (principal); E87.6 Hypokalemia | CPT/HCPCS: 99222; 99499 ==

== ENCOUNTER → 2024-04-22 16:01 | Outpatient (BNV) | payer MEDICARE, MEDICAID, SELFPAY | PROVIDERS: Admitting Provider Psychiatry & Neurology Psychiatry; Visit Provider Psychiatry & Neurology Psychiatry | DX: F25.1 Schizoaffective disorder, depressive type (principal); F03.90 Unspecified dementia, unspecified severity, without behavioral disturbance, psychotic disturbance, mood disturbance, and anxiety | CPT/HCPCS: 99222; 99232 ==

== ENCOUNTER → 2024-04-22 16:01 | Outpatient (BNV) | payer MEDICARE, MEDICAID, SELFPAY | PROVIDERS: Admitting Provider Psychiatry & Neurology Psychiatry; Visit Provider Psychiatry & Neurology Psychiatry | DX: F25.1 Schizoaffective disorder, depressive type (principal); F03.90 Unspecified dementia, unspecified severity, without behavioral disturbance, psychotic disturbance, mood disturbance, and anxiety | CPT/HCPCS: 99232 ==